=== PATIENT | male | born 1930 | race Caucasian/White ===

== ENCOUNTER → 2016-08-04 | Day surgery (SDC) | payer OTHER ==
--- NOTE | 2016-07-28 08:35 | MB ---
cc: Laverne DE LA CRUZ M.D., JOO DATE OF CONSULTATION 07/21/2016 PRIMARY CARE PHYSICIAN Nilson Hadley MD REASON FOR ADMISSION Outpatient bronchoscopy being scheduled. HISTORY Mr. Oropeza is an 85-year-old white male whom I have followed now for about two years with recurring infiltrates. He initially had a left lower lobe infiltrate which occurred in August or September of 2014. It was suspected to possibly be related to aspiration. He was treated and got some improvement. However in the spring he re-presented with a right lower lobe infiltrate and again it was suspected of being aspiration. Follow-up scans on the right cleared completely but the left never really did clear completely. He was a former smoker of about 40 pack-years although he quit smoking in 1984. I last saw him in September at which time we were to schedule routine followup in six months but he had to reschedule and did not have a follow-up scan of his chest until July 15 of this year, 2016, and now he has a more extensive infiltrate in that left lower lobe again. It is associated with bronchiectasis and some stable mediastinal adenopathy. He has had no recurrent infiltrate on the right. He has developed a persistent cough again but produces very little sputum. He has had no hemoptysis. He denies shortness of breath. Pulmonary functions back in September of 2014 revealed no significant obstruction. PAST MEDICAL HISTORY 1. He has had a prior bypass surgery in 1986. 2. He had some stents placed in 1989. There is been no evidence of recurrent ischemic disease recently. 3. He has had a previous cholecystectomy. 4. He is hypothyroid. 5. Hypertension. 6. Chronic reflux disease which may be the etiology of these recurring infiltrates. ALLERGIES Peanuts. MEDICATIONS 1. Prilosec. 2. Isosorbide. 3. A statin. 4. Allopurinol. 5. Thyroid replacement. 6. 81 mg aspirin. 7. Metoprolol. SOCIAL HISTORY , living with his of 64 years. Drinks an occasional alcoholic beverage. Smoking as noted; quit back in 1985. Retired from [employer]. REVIEW OF SYSTEMS Weight has been stable. Appetite is fine. He does have a recurring cough, however, and it is a little worse. No purulent sputum or hemoptysis. He denies shortness of breath. He has had no chest pain, no orthopnea, PND or increasing edema in his legs. Reflux has been controlled at least symptomatically on Prilosec. He does not experience reflux or nighttime awakening with reflux. No anginal chest pain or progressive edema. No swelling in his legs. No shortness of breath. PHYSICAL EXAMINATION VITAL SIGNS: 96, 114/62, pulse 70, RR 18, sat 96% on room air. HEENT: Sclerae anicteric. Pharynx is clear. NECK: Neck veins are flat. LYMPHATICS: No adenopathy in the neck or supraclavicular regions. CHEST: His chest is fairly clear, although he does have basilar rales at the left greater than the right. No congestion or rhonchi. HEART: Regular rhythm. No harsh murmur. No audible S3. No pitting edema or cyanosis. ASSESSMENT AND PLAN I have reviewed the follow-up CT scan with Mr. Oropeza I am just a little concerned because, although these infiltrates are chronic, the one at the left base a little worse. He is a little more symptomatic and with his prior smoking history I cannot rule out an underlying malignancy. I have suggested proceeding with a diagnostic bronchoscopy. After thoroughly reviewing the procedure in simple terms so that he understands what it involves including the potential for risk of from anesthesia or bleeding or pneumothorax from biopsy, he is agreeable to proceed. Further diagnostic and/or therapeutic intervention will depend on results of this initial diagnostic study. R. MD SAMIR Gamboa/MILLI /12:17 PM /8:35 AM
[~2016-08-04] VITALS: Ht 180.3 cm; Wt 83.6 kg
[~2016-08-04] MED LIST: ALLO300T2 PO; ASPI325T PO; AZIT500T2 PO; CIPR750T2 PO; DO NOT ADM ANY ANTICOAGULANT DRUGS XX PRN; EPINEPHrine HCL (1:1000) 1 MG/ML VIAL ONE; INSULIN HUMAN REGULAR 1,000 UNITS/10 ML VIAL SQ PRN; ISOS20TA PO; LACTATED RINGER'S 1000 ML IV SCH; LEVO25TA4 PO; LIDOCAINE HCL 2% 50 ML VIAL ONE; LIDOCAINE HCL 4% PF 5 ML AMP ONE; LIDOCAINE VISCOUS 2% SOLN 15 ML UDC ONE; METO25TA3 PO; METOPROLOL TARTRATE 25 MG TAB PO PRN; OMEP20TA PO; PRAV20TA PO; PRED-503 PO; PROPOFOL 200 MG/20 ML AMP IV ONE; RESP: ALBUTEROL 2.5 MG/3 ML NEB (PRN) NEB; RESP: ALBUTEROL 2.5 MG/3 ML NEB (SCH) INH; RESP: LIDOCAINE HCL 2% 2 ML NEB NEB SCH; ROPI.25 PO; SODIUM CHLORID 0.9% 500 ML IV SCH; ePHEDrine/NS 50 MG/5 ML SYR IV ONE
[2016-08-04 13:33] VITALS: BP 144/74; PULSE 86; RESP 18; TEMP 97.8; O2SAT 97
[2016-08-04 14:07] LABS: PROTHROMBIN TIME - PATIENT 10.8 SEC (9.8-11.6)
[2016-08-04 15:40] VITALS: BP 133/70; PULSE 83; RESP 18; TEMP 96.5; O2SAT 94
--- NOTE | 2016-08-09 13:02 | MP ---
cc: AILYN FELIZ R. STEVEN M.D. DATE OF SURGERY: 08/04/2016 PROCEDURE Bronchoscopy INDICATION Persistent left lower lobe infiltrate. PROCEDURE NOTE: Mr. Oropeza underwent diagnostic bronchoscopy with LMA anesthesia, after informed consent. Examination of the larynx is unremarkable. Examination of the trachea down to the level of the mainstem bronchi was normal, but the left mainstem bronchus had rather copious secretions, foamy, not particularly purulent. No blood. These areas were suctioned to clear. Examination of the right mainstem bronchus, right upper lobe, middle lobe and lower lobe orifices was entirely unremarkable. Examination of the left mainstem bronchus again revealed some scattered secretions. These were aspirated and submitted for culture. The left upper lobe lingula and lower lobes were entirely unremarkable without endobronchial pathology. The left lower lobe, the area of infiltrate on chest x-ray was washed extensively and submitted for cytology and culture including AFB and fungus. He tolerated the procedure well without apparent complications transferred to recovery in stable condition. RMD SAMIR Zavala/AYDEE /2:59 PM /12:52 PM
== END | disposition home or self-care (01) ==
LOC: HEND 12:44
PROVIDERS: ATTEND Internal Medicine
DX: R91.8 Other nonspecific abnormal finding of lung field (principal); J18.9 Pneumonia, unspecified organism; J47.9 Bronchiectasis, uncomplicated; I10 Essential (primary) hypertension; I25.10 Atherosclerotic heart disease of native coronary artery without angina pectoris; E03.9 Hypothyroidism, unspecified; K21.9 Gastro-esophageal reflux disease without esophagitis; Z87.891 Personal history of nicotine dependence; Z79.82 Long term (current) use of aspirin; Z90.49 Acquired absence of other specified parts of digestive tract
CPT/HCPCS: 00520; 31622; 85610; 86403; 87015; 87070; 87102; 87116; 87205; 87206; 88112; 88305; 94664; J0171; J7120

== ENCOUNTER → 2017-03-29 | Outpatient (CLI) | payer OTHER ==
[~2017-03-29] MED LIST changes: +ALLO100T PO; +APIX5TAB PO; -AZIT500T2 PO; +CARD120C4 PO; -CIPR750T2 PO; -DO NOT ADM ANY ANTICOAGULANT DRUGS XX PRN; -EPINEPHrine HCL (1:1000) 1 MG/ML VIAL ONE; +FLUT50SP EACH NARE; +INDO25CA PO; -INSULIN HUMAN REGULAR 1,000 UNITS/10 ML VIAL SQ PRN; -LACTATED RINGER'S 1000 ML IV SCH; +LEVA750T9 PO; -LIDOCAINE HCL 2% 50 ML VIAL ONE; -LIDOCAINE HCL 4% PF 5 ML AMP ONE; -LIDOCAINE VISCOUS 2% SOLN 15 ML UDC ONE; +MEDR4PAK PO; -METOPROLOL TARTRATE 25 MG TAB PO PRN; -PRED-503 PO; -PROPOFOL 200 MG/20 ML AMP IV ONE; -RESP: ALBUTEROL 2.5 MG/3 ML NEB (PRN) NEB; -RESP: ALBUTEROL 2.5 MG/3 ML NEB (SCH) INH; -RESP: LIDOCAINE HCL 2% 2 ML NEB NEB SCH; -SODIUM CHLORID 0.9% 500 ML IV SCH; -ePHEDrine/NS 50 MG/5 ML SYR IV ONE; +guaiFENesin ER PO
--- NOTE | 2017-04-05 10:41 | RSPPFT ---
DATE OF PROCEDURE: 03/29/17 COMMENTS: Spirometry demonstrates an FEV1 of 2.7 at 94% of predicted, FVC of 3.4 at 90%, FEF 25-75 is 108%. Post-bronchodilator study demonstrated no significant changes. Lung volumes demonstrated a mildly increased airways resistance. Diffusion capacity is moderately reduced. Flow volume loops appear unremarkable. IMPRESSION: 1. Essentially normal spirometry. 2. No significant change following use of bronchodilator. 3. Moderate loss in diffusion capacity.
== END ==
LOC: PHRSP 10:34
DX: J44.9 Chronic obstructive pulmonary disease, unspecified (principal); R05 Cough; R06.00 Dyspnea, unspecified
CPT/HCPCS: 94060; 94726; 94729

== ENCOUNTER 2017-04-11 03:08 | Inpatient (IN) | payer OTHER, MEDICARE ==
[~2017-04-11] VITALS: Ht 180.3 cm; Wt 86.0 kg
[2017-04-11] VITALS (29 sets, daily range): BP systolic 74–123; BP diastolic 41–63; PULSE 68–108; RESP 18–34; TEMP 98–103.1; O2SAT 93–100
[~2017-04-11 03:08] MED LIST changes: -ALLO100T PO; -APIX5TAB PO; -CARD120C4 PO; -FLUT50SP EACH NARE; -INDO25CA PO; -LEVA750T9 PO; -MEDR4PAK PO; -guaiFENesin ER PO
[2017-04-11] MEDS ORDERED: FLUT50SP EACH NARE (03:20)
[2017-04-11] MEDS ORDERED: INDO25CA PO (03:20)
[2017-04-11] MEDS ORDERED: ALLO100T PO (03:20)
--- NOTE | 2017-04-11 03:25 | PD ---
HPI Chief Complaint: Fever Time Seen by Provider: 03:18 Travel History International Travel<30 days: No Contact w/Intl Traveler<30days: No Traveled to known affect area: No History of Present Illness HPI 86-year-old male presents to the emergency department by EMS transport from home for evaluation of shaking chill with fever. Patient has had congestive cough. His had a congested cough approximate year. Cough is somewhat worse. No shortness of breath or pleuritic chest pain or chest pain. No abdominal pain. No diarrhea. No nausea or vomiting. No flank pain. No change in urine output. No recent antibiotic use. Patient had recent flu shot. Patient denies any headache neck pain back pain joint pain or swelling. Patient rates pain 0/10 in intensity. Patient has been treated in the past for left sided pneumonia. Patient has had bronchoscopy in the past. No report of cancer. PFSH Past Medical History Narrative Medical CAD angioplasty stent CABG hypertension dyslipidemia diminished hearing gouty arthritis osteoarthritis thyroid dysfunction alcohol use nursing notes reviewed Autoimmune Disease: No Anxiety: No Depression: No Cancer: No Cardiac Catheterization: Yes (1995--ANGIOPLASTY--ONE STENT) Cardiovascular Problems: Yes (HX BYPASS) High Cholesterol: Yes Chemotherapy: No Chest Pain: Yes COPD: Yes Coronary Artery Disease: Yes Diabetes: No Diminished Hearing: Yes (HEARING AIDS) GERD: Yes Gout: Yes Genitourinary: No Hepatitis: No Hiatal Hernia: Yes Immune Disorder: No Musculoskeletal: Yes (OA) Neurologic: No Psychiatric: No Reproductive: No Respiratory: Yes (CONGESTION, SLEEP APNEA) Radiation Therapy: No Thyroid Disease: Yes (hyper thyroid) Past Surgical History Abdominal Surgery: Yes (gall bladder) AICD: No Cardiac Surgery: Yes (5 artery by pass . stent) Cholecystectomy: Yes (2001) Coronary Artery Bypass Graft: Yes (1986 X 5 VESSLES) Ear Surgery: No Endocrine Surgery: No Eye Surgery: Yes (BOTH EYES CATARACT) Genitourinary Surgery: No Gynecologic Surgery: No Joint Replacement: No Oral Surgery: Yes (tonsillectomy) Pacemaker: No Thoracic Surgery: No Tonsillectomy: Yes (1941) Social History Alcohol Use: Yes ("ONCE A MONTH COUPLE OF DRINKS"BEER, MIX DRINKS OR WINE) Tobacco Use: No Substance Use: No Allergies-Medications (Allergen,Severity, Reaction): Coded Allergies: peanut oil (Verified Allergy, Severe, 04/11/17) Reported Meds & Prescriptions Reported Meds & Active Scripts Active Reported Indomethacin 25 Mg Cap 25 Mg PO TID Take with food, milk, or antacids to decrease stomach adverse effects. Fluticasone Nasal [place] 50 Mcg/Act Naspr 50 Mcg EACH NARE BID 50 mcg/spray Allopurinol 100 Mg Tab 100 Mg PO DAILY Isosorbide Mononitrate 20 Mg Tab 60 Mg PO DAILY Take 2 doses 7 hours apart. Levothyroxine (Levothyroxine Sodium) 25 Mcg Tab 25 Mcg PO DAILY Metoprolol Tartrate 25 Mg Tab 25 Mg PO BID Omeprazole 20 Mg Tab 20 Mg PO DAILY Pravachol (Pravastatin) 20 Mg Tab 20 Mg PO HS PRN Requip (Ropinirole HCl) 0.25 Mg Tab 0.25 Mg PO DAILY Review of Systems Except as stated in HPI: all other systems reviewed are Neg General / Constitutional: Positive: Fever, Chills Eyes: No: Visual changes HENT: Positive: Congestion Cardiovascular: No: Chest Pain or Discomfort Respiratory: Positive: Cough, No: Shortness of Breath Gastrointestinal: No: Nausea, Vomiting, Diarrhea, Abdominal Pain Genitourinary: No: Dysuria, Decreased Urinary Output Musculoskeletal: No: Myalgias, Arthralgias Skin: No Rash Neurologic: Positive: Weakness Psychiatric: No: Anxiety Endocrine: No: Heat Intolerance Physical Exam Narrative GENERAL: Well-developed well-nourished male in no acute distress no respiratory distress with fever 10 3F oral SKIN: Warm and dry. HEAD: Normocephalic. EYES: No scleral icterus. No injection or drainage. NECK: Supple, trachea midline. No JVD or lymphadenopathy. CARDIOVASCULAR: Regular rate and rhythm without murmurs, gallops, or rubs. RESPIRATORY: Breath sounds equal bilaterally except for crackles left base. No accessory muscle use. GASTROINTESTINAL: Abdomen soft, non-tender, nondistended. MUSCULOSKELETAL: No cyanosis, or edema. BACK: Nontender without obvious deformity. No CVA tenderness. Data Data Last Documented VS Vital Signs Date Time Temp Pulse Resp B/P (MAP) Pulse Ox O2 Delivery O2 Flow Rate FiO2 04/11/17 04:10 Nasal Cannula 2.00 04/11/17 04:10 100.9 108 30 123/53 (76) 95 Orders Orders Electrocardiogram (04/11/17 03:18) Complete Blood Count With Diff (04/11/17 03:18) Comprehensive Metabolic Panel (04/11/17 03:18) Lactic Acid Sepsis Protocol (04/11/17 03:18) Magnesium (Mg) (04/11/17 03:18) Lipase (04/11/17 03:18) Troponin I (04/11/17 03:18) Urinalysis - C+S If Indicated (04/11/17 03:18) Influenzae A/B Antigen (04/11/17 03:18) Blood Culture (04/11/17 03:18) Sputum Culture And Gram Stain (04/11/17 03:18) Chest, Single Ap (04/11/17 03:18) Blood Glucose (04/11/17 03:18) Ecg Monitoring (04/11/17 03:18) Iv Access Insert/Monitor (04/11/17 03:18) Oximetry (04/11/17 03:18) Oxygen Administration (04/11/17 03:18) Acetaminophen (Tylenol) (04/11/17 03:30) Sodium Chlor 0.9% 1000 Ml Inj (Ns 1000 M (04/11/17 03:30) Piperacil-Tazo 4.5 Gm Premix (Zosyn 4.5 (04/11/17 03:30) Azithromycin Inj (Zithromax Inj) (04/11/17 03:30) Admit Order (Ed Use Only) (04/11/17 ) ^ Saline Lock (04/11/17 05:09) Resp Oxygen Bin C Titrat 1-4 L (04/11/17 ) Notify Dr: Other (04/11/17 05:09) Sodium Chloride 0.9% Flush (Ns Flush) (04/11/17 09:00) Sodium Chloride 0.9% Flush (Ns Flush) (04/11/17 05:15) Azithromycin Inj (Zithromax Inj) (04/12/17 08:00) Ceftriaxone Inj (Rocephin Inj) (04/12/17 06:00) Albuterol-Ipratropium Neb (Duoneb Neb) (04/11/17 05:15) Admit To Inpatient (04/11/17 ) Vital Signs (Adult) Q4H (04/11/17 05:08) Activity Oob With Assistance (04/11/17 05:08) Tennis Ball Coverer Hand / Telemetry .CONTINUOUS (04/11/17 05:08) Intake + Output ESEQUIEL.QSHIFT (04/11/17 05:08) Diet Regular Basic (04/11/17 Breakfast) Sodium Chlor 0.9% 1000 Ml Inj (Ns 1000 M (04/11/17 05:08) Sodium Chloride 0.9% Flush (Ns Flush) (04/11/17 05:15) Sodium Chloride 0.9% Flush (Ns Flush) (04/11/17 09:00) Ondansetron Inj (Zofran Inj) (04/11/17 05:15) Comprehensive Metabolic Panel (04/12/17 06:00) Complete Blood Count With Diff (04/12/17 06:00) Scd Bilateral/Knee High ESEQUIEL.BID (04/11/17 05:08) [place] Antonio Bilateral/Knee High ESEQUIEL.QSHIFT (04/11/17 05:11) Acetaminophen (Tylenol) (04/11/17 05:15) Acetamin-Hydrocod 325-5 Mg ([place] 5-325 (04/11/17 05:15) Morphine Inj (Morphine Inj) (04/11/17 05:15) Docusate Sodium-Senna (Marianela-Colace) (04/11/17 09:00) Magnesium Hydroxide Liq (Milk Of Magnesi (04/11/17 05:15) Sennosides (Senokot) (04/11/17 05:15) Bisacodyl Supp (Dulcolax Supp) (04/11/17 05:15) Lactulose Liq (Lactulose Liq) (04/11/17 05:15) Inpatient Certification (04/11/17 ) Levothyroxine (Synthroid) (04/11/17 07:00) Metoprolol Tartrate (Lopressor) (04/11/17 09:00) Ropinirole Hcl (Requip) (04/11/17 09:00) Pantoprazole (Protonix) (04/11/17 09:00) Labs Laboratory Tests Test 04/11/17 03:25 White Blood Count 9.9 TH/MM3 Red Blood Count 5.21 MIL/MM3 Hemoglobin 14.3 GM/DL Hematocrit 42.6 % Mean Corpuscular Volume 81.8 FL Mean Corpuscular Hemoglobin 27.4 PG Mean Corpuscular Hemoglobin Concent 33.6 % Red Cell Distribution Width 13.6 % Platelet Count 168 TH/MM3 Mean Platelet Volume 8.6 FL Neutrophils (%) (Auto) 81.3 % Lymphocytes (%) (Auto) 10.3 % Monocytes (%) (Auto) 6.8 % Eosinophils (%) (Auto) 1.5 % Basophils (%) (Auto) 0.1 % Neutrophils # (Auto) 8.1 TH/MM3 Lymphocytes # (Auto) 1.0 TH/MM3 Monocytes # (Auto) 0.7 TH/MM3 Eosinophils # (Auto) 0.1 TH/MM3 Basophils # (Auto) 0.0 TH/MM3 CBC Comment DIFF FINAL Differential Comment Urine Color YELLOW Urine Turbidity CLEAR Urine pH 6.0 Urine Specific [place] 1.015 Urine Protein NEG mg/dL Urine Glucose (UA) NEG mg/dL Urine Ketones NEG mg/dL Urine Occult Blood TRACE Urine Nitrite NEG Urine Bilirubin NEG Urine Leukocyte Esterase NEG Urine RBC 0-3 /hpf Urine WBC 0-2 /hpf Urine Squamous Epithelial Cells 0-5 /hpf Urine Bacteria NONE /hpf Microscopic Urinalysis Comment CULT NOT INDICATED Blood Urea Nitrogen 17 MG/DL Creatinine 1.10 MG/DL Random Glucose 127 MG/DL Total Protein 7.3 GM/DL Albumin 3.1 GM/DL Calcium Level 8.7 MG/DL Magnesium Level 1.6 MG/DL Alkaline Phosphatase 82 U/L Aspartate Amino Transf (AST/SGOT) 24 U/L Alanine Aminotransferase (ALT/SGPT) 23 U/L Total Bilirubin 0.4 MG/DL Sodium Level 139 MEQ/L Potassium Level 3.7 MEQ/L Chloride Level 106 MEQ/L Carbon Dioxide Level 26.4 MEQ/L Anion Gap 7 MEQ/L Estimat Glomerular Filtration Rate 63 ML/MIN Lactic Acid Level 2.3 mmol/L Troponin I LESS THAN 0.02 NG/ML Lipase 188 U/L [facility] Medical Decision Making Medical Screen Exam Complete: Yes Emergency Medical Condition: Yes 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 Reviewed: Yes Interpretation(s) EKG sinus tachycardia rate 110 intraventricular conduction delay borderline first-degree heart block no acute ST elevation IVCD noted since Chest x-ray left lower lobe infiltrate CBC & BMP Diagram 04/11/17 03:25 Total Protein 7.3, Albumin 3.1 L, Calcium Level 8.7, Magnesium Level 1.6, Alkaline Phosphatase 82, Aspartate Amino Transf (AST/SGOT) 24, Alanine Aminotransferase (ALT/SGPT) 23, Total Bilirubin 0.4 Vital Signs Date Time Temp Pulse Resp B/P (MAP) Pulse Ox O2 Delivery O2 Flow Rate FiO2 04/11/17 04:10 Nasal Cannula 2.00 04/11/17 04:10 100.9 108 30 123/53 (76) 95 Nasal Cannula 2.00 04/11/17 04:10 100.9 108 30 123/53 (76) 95 Nasal Cannula 2.00 04/11/17 03:30 96 Room Air 04/11/17 03:30 96 Room Air 04/11/17 03:21 103.1 105 28 120/63 (82) 96 Lactic acid elevated 2.3 CK 82 not elevated; troponin I less than 0.02, not elevated Differential Diagnosis Febrile illness, sepsis, pneumonia, UTI, influenza, dehydration Narrative Course patient is on story analyst IV access obtained blood cultures obtained lactic acid obtained specimens collected and sent for resulting EKG ordered patient administered acetaminophen 650 mg as well as presumptive IV antibiotic for community-acquired pneumonia Zosyn 4.5 g and azithromycin 500 mg ivpb Patient resting comfortably family at bedside informed of lab results and plan for admission Critical Care Narrative Aggregate critical care time was 35 minutes. Time to perform other separately billable procedures was not included in the critical care time. My time did not include minutes spent treating any other patients simultaneously or on activities that did not directly contribute to the patient's treatment. The services I provided to this patient were to treat and/or prevent clinically significant deterioration that could result in: Septic shock, respiratory failure, I provided critical care services requiring my management, as noted below: Chart data review, documentation time, medication orders and management, vital sign assessments/reviewing monitor data, ordering and reviewing lab tests, ordering and interpreting/reviewing x-rays and diagnostic studies, care of the patient and discussion of the patient with the admitting physicians. Sepsis Criteria SIRS Criteria (2 or more): Temp > 100.9 or < 96.8, Heart rate over 90, RR > 20 or PaCO2 < 32 Sepsis Criteria (SIRS+source): Infect source susp/known (LLL infiltrate) Severe Sepsis (+one): Lactate >2 Criteria Outcome: Meets sepsis criteria Physician Communication Physician Communication [facility] service MD Diagnosis Primary Impression: PNA (pneumonia) Additional Impression: Sepsis Admitting Information Admitting Physician Requests: Admit Eliza Steven MD Apr 11, 2017 03:25
[2017-04-11] MEDS ORDERED: SODIUM CHLOR 0.9% 1000 ML INJ 1,000 ML IV ONE ×3 (03:30→11:00)
[2017-04-11] MEDS ORDERED: PIPERACIL-TAZO 4.5 GM PREMIX 100 ML IV ONE (03:30)
[2017-04-11] MEDS ORDERED: ACETAMINOPHEN 325 MG TAB PO ONE (03:30)
[2017-04-11] MEDS ORDERED: AZITHROMYCIN INJ 500 MG in SODIUM CHLOR 0.9% 250 ML INJ 250 ML IV ONE (03:30)
[2017-04-11 03:42] LABS: GLUCOSE,URINE NEG (NEG); KETONE, URINE NEG (NEG); NITRITE,URINE NEG (NEG)
[2017-04-11 03:45] LABS: AUTOMATED NEUTROPHIL # 8.1 TH/MM3 (1.8-7.7); BASOPHIL % 0.1 % (0.0-2.0); EOSINOPHIL # 0.1 TH/MM3 (0-0.4); EOSINOPHIL % 1.5 % (0.0-4.0); HEMATOCRIT 42.6 % (39.0-51.0); HEMO FLAGS DIFF FINAL; LYMPH % 10.3 % (9.0-44.0); MEAN CELL VOLUME 81.8 FL (80.0-100.0); MEAN CORPUSCULAR HEMOGLOBIN 27.4 PG (27.0-34.0); MEAN CORPUSCULAR HGB CONC 33.6 % (32.0-36.0); MONO % 6.8 % (0.0-8.0); NEUT % 81.3 % (16.0-70.0); PLATELET COUNT 168 TH/MM3 (150-450); RED BLOOD COUNT 5.21 MIL/MM3 (4.50-5.90); RED CELL DISTRIBUTION WIDTH 13.6 % (11.6-17.2); WHITE BLOOD COUNT 9.9 TH/MM3 (4.0-11.0)
[2017-04-11 03:52] LABS: CHLORIDE 106 MEQ/L (98-107); POTASSIUM 3.7 MEQ/L (3.5-5.1); SODIUM (NA) 139 MEQ/L (136-145)
[2017-04-11 03:56] LABS: ANION GAP 7 MEQ/L (5-15); BICARBONATE 26.4 MEQ/L (21.0-32.0); BLOOD UREA NITROGEN 17 MG/DL (7-18); MAGNESIUM 1.6 MG/DL (1.5-2.5)
[2017-04-11 03:59] LABS: ALT (GPT) 23 U/L (12-78); AST (GOT) 24 U/L (15-37); GLOMERULAR FILTRATION RATE 63 ML/MIN (>89)
[2017-04-11 04:00] LABS: TOTAL BILIRUBIN ADULT 0.4 MG/DL (0.2-1.0)
[2017-04-11 04:02] LABS: ALKALINE PHOSPHATASE 82 U/L (45-117)
--- NOTE | 2017-04-11 04:03 | RADRPT ---
EXAM DATE/TIME: 04/11/2017 03:32 [place] COMPARISON: CT PULMONARY ANGIOGRAM, October 11, 2014, 14:09. INDICATIONS : Fever. MEDICAL HISTORY : Hypertension. SURGICAL HISTORY : Cholecystectomy. CABG. ENCOUNTER: Initial ACUITY: 1 day PAIN SCORE: 0/10 LOCATION: Bilateral chest FINDINGS: A single view of the chest demonstrates mild basilar consolidation at the left lung base. Minimal rig ht basal atelectasis. No significant effusion. No pneumothorax. Previous median sternotomy. CONCLUSION: 1. Basilar lung consolidation predominantly left lower lobe. Differential diagnosis includes bronchop neumonia given history of fever. Rosas Peña MD on April 11, 2017 at 4:00 Board Certified Radiologist. This report was verified electronically.
[2017-04-11 04:09] LABS: BLOOD, URINE TRACE (NEG)
[2017-04-11 04:10] LABS: RBC, URINE 0-3 /hpf (0-3); URINE COLOR YELLOW (YELLW/STRAW); WBC, URINE 0-2 /hpf (0-5)
[2017-04-11 04:11] LABS: COMMENT (UR) CULT NOT INDICATED; CULTURE IF INDICATED CULT NOT INDICATED; SQUAMOUS EPITHELIAL CELL URINE 0-5 /hpf (0-5)
[2017-04-11] MEDS ORDERED: BISACODYL 10 MG SUPP RECTAL PRN (05:15)
[2017-04-11] MEDS ORDERED: ACETAMINOPHEN 325 MG TAB PO PRN (05:15)
[2017-04-11] MEDS ORDERED: MORPHINE SULFATE 4 MG/ML INJ IV PUSH PRN (05:15)
[2017-04-11] MEDS ORDERED: MAGNESIUM HYDROXIDE SUSP 30 ML CUP PO PRN (05:15)
[2017-04-11] MEDS ORDERED: RESP: ALBUTEROL 2.5 MG/IPRATROPIUM 0.5 MG NEB (PRN) NEB (05:15)
[2017-04-11] MEDS ORDERED: ACETAMINOPHEN/HYDROcodone 325 MG/5 MG TAB PO PRN (05:15)
[2017-04-11] MEDS ORDERED: SODIUM CHLORIDE 0.9% FLUSH 10 ML FLUSH IVF PRN (05:15)
[2017-04-11] MEDS ORDERED: ONDANSETRON HCL 4 MG/2 ML VIAL IVP PRN (05:15)
[2017-04-11] MEDS ORDERED: LACTULOSE SYRUP 20 GM/30 ML CUP PO PRN (05:15)
[2017-04-11] MEDS ORDERED: SENNOSIDES 8.6 MG TAB PO PRN (05:15)
[2017-04-11] MEDS ORDERED: SODIUM CHLOR 0.9% 1000 ML INJ 1,000 ML IV SCH (05:30)
[2017-04-11] MEDS ORDERED: SODIUM CHLORID 0.9% 500 ML INJ 500 ML IV ONE ×3 (05:30→17:30)
[2017-04-11 05:38] LABS: LACTIC ACID GHOST NOT REPORTABLE
[2017-04-11] MEDS: LEVOTHYROXINE SODIUM 25 MCG TAB PO SCH (06:25)
--- NOTE | 2017-04-11 07:08 | EKG ---
Date Performed: 04/11/2017 Time Performed: 03:55:28 PTAGE: 86 years EKG: SINUS TACHYCARDIA NONSPECIFIC INTRAVENTRICULAR CONDUCTION DELAY NONSPECIFIC T WAVE ABNORMAL ITY ABNORMAL ECG PREVIOUS TRACING : 10/10/2014 17.08 No significant change from previous tracing noted. DOCTOR: Elpidio Parish Interpretating Date/Time 04/11/2017 07:07:17
[2017-04-11] MEDS: SODIUM CHLOR 0.9% 1000 ML INJ 1,000 ML IV SCH ×2 (07:17→15:08)
[2017-04-11] MEDS: SODIUM CHLORIDE 0.9% FLUSH 10 ML FLUSH IV FLUSH SCH ×2 (09:00→20:34)
[2017-04-11] MEDS: METOPROLOL TARTRATE 25 MG TAB PO SCH ×2 (09:00→20:34)
[2017-04-11] MEDS: DOCUSATE SODIUM 50 MG/SENNA 8.6 MG TAB PO SCH ×2 (09:00→20:31)
[2017-04-11] MEDS: PANTOPRAZOLE SOD 20 MG DELAYED RELEASE TAB PO SCH (09:00)
[2017-04-11] MEDS ORDERED: SODIUM CHLORIDE 0.9% FLUSH 10 ML FLUSH IV FLUSH SCH (09:00)
--- NOTE | 2017-04-11 11:17 | HHI.HP ---
[facility] Jem Kaufman MD Admission Diagnosis LLL pneumonia; sepsis Diagnoses: Chief Complaint: fever, chills Travel History International Travel<30 Days: No Contact w/Intl Traveler <30 Da: No Traveled to Known Affected Are: No History of Present Illness Very pleasant 86-year-old male with PMH of PNA, CAD, HTN, HLD, hypothyroidism, GERD, gout, arthritis presents to the emergency department by EMS transport from home for evaluation of shaking chill with fever. Says he woke up in the middle of the night with shaking chills, fever, pain all over his body. Patient has had congestive cough. He had a congested cough approximate for 1 year. Cough is somewhat worse. Says he is following with pulm Dr Magaña. Says he has been taking mucinex, nebs and did not help. Says he had PFT as OP and did not show he has COPD. Says he doens't know why he has the cough. He has a h/ o asbestos exposure at young age ~ 19 ya. 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 He also has a h/o GERD and is taking omeprazole for the past 20 years. He however denies shortness of breath, pleuritic chest pain or chest pain. No abdominal pain. No diarrhea. No nausea or vomiting. No flank pain. No change in urine output. No recent antibiotic use. Patient had recent flu shot. Patient denies any headache neck pain back pain joint pain or swelling. Patient rates pain 0/10 in intensity. Patient has been treated in the past for left sided pneumonia. Patient has had bronchoscopy, PFT and CT chest in the past. No report of cancer. His BP is noted low, received 2.5 L in the ER, MAP 65%. Patient says he feels very tired. No more chills or body aches. Review of Systems Except as stated in HPI: all other systems reviewed are Neg Past Family Social History Past Medical History PNA, CAD, HTN, HLD, hypothyroidism, GERD, restless leg syndrome, gout, arthritis Past Surgical History CABG 1986, angioplasty 1 stent 1995 Cholecystectomy 2001 Bilateral eye cataract surgery Tonsillectomy 1942 Reported Medications Reported Meds & Active Scripts Active Reported Indomethacin 25 Mg Cap 25 Mg PO TID Take with food, milk, or antacids to decrease stomach adverse effects. Fluticasone Nasal [place] 50 Mcg/Act Naspr 50 Mcg EACH NARE BID 50 mcg/spray Allopurinol 100 Mg Tab 100 Mg PO DAILY Isosorbide Mononitrate 20 Mg Tab 60 Mg PO DAILY Take 2 doses 7 hours apart. Levothyroxine (Levothyroxine Sodium) 25 Mcg Tab 25 Mcg PO DAILY Metoprolol Tartrate 25 Mg Tab 25 Mg PO BID Omeprazole 20 Mg Tab 20 Mg PO DAILY Pravachol (Pravastatin) 20 Mg Tab 20 Mg PO HS PRN Requip (Ropinirole HCl) 0.25 Mg Tab 0.25 Mg PO DAILY Allergies: Coded Allergies: peanut oil (Verified Allergy, Severe, 04/11/17) Family History Half sister [place], at age of 65 Mother healthy of old age at 81 ya Social History Tobacco use 1 PPD for 30 years, quit 35 years ago Occasional EtOH use, once a month a couple of drinks Physical Exam Vital Signs Vital Signs Date Time Temp Pulse Resp B/P (MAP) Pulse Ox O2 Delivery O2 Flow Rate FiO2 04/11/17 11:14 100 Nasal Cannula 2.00 04/11/17 08:30 98.2 04/11/17 08:15 04/11/17 07:19 98.4 86 18 90/47 (61) 97 Room Air 04/11/17 06:23 82 105/62 (76) 04/11/17 06:04 99.5 83 24 101/53 (69) 95 Nasal Cannula 2.00 04/11/17 05:32 89 26 90/52 (65) 96 Nasal Cannula 2.00 04/11/17 04:10 Nasal Cannula 2.00 04/11/17 04:10 100.9 108 30 123/53 (76) 95 Nasal Cannula 2.00 04/11/17 04:10 100.9 108 30 123/53 (76) 95 Nasal Cannula 2.00 04/11/17 03:30 96 Room Air 04/11/17 03:30 96 Room Air 04/11/17 03:21 103.1 105 28 120/63 (82) 96 Physical Exam GENERAL: This is a very pleasant 86 yo male, well-nourished, well-developed patient, in no apparent distress. SKIN: No rashes, ecchymoses or lesions. Cool and dry. HEAD: Atraumatic. Normocephalic. No temporal or scalp tenderness. EYES: Pupils equal round and reactive. Extraocular motions intact. No scleral icterus. No injection or drainage. ENT: Nose without bleeding, purulent drainage or septal hematoma. Throat without erythema, tonsillar hypertrophy or exudate. Uvula midline. Airway patent. NECK: Trachea midline. No JVD or lymphadenopathy. Supple, nontender, no meningeal signs. CARDIOVASCULAR: Regular rate and rhythm without murmurs, gallops, or rubs. RESPIRATORY: Diminished breath sounds, bronchial breath sounds on left lower lung field. Wheezing, scattered. No rales, or rhonchi. GASTROINTESTINAL: Abdomen soft, non-tender, nondistended. No hepato-splenomegaly , or palpable masses. No guarding. MUSCULOSKELETAL: Extremities without clubbing, cyanosis, or edema. No joint tenderness, effusion, or edema noted. No calf tenderness. Negative Homans sign bilaterally. NEUROLOGICAL: Awake and alert. Cranial nerves II through XII intact. Motor and sensory grossly within normal limits. Five out of 5 muscle strength in all muscle groups. Normal speech. Laboratory Laboratory Tests Test 04/11/17 03:25 04/11/17 05:45 White Blood Count 9.9 Red Blood Count 5.21 Hemoglobin 14.3 Hematocrit 42.6 Mean Corpuscular Volume 81.8 Mean Corpuscular Hemoglobin 27.4 Mean Corpuscular Hemoglobin Concent 33.6 Red Cell Distribution Width 13.6 Platelet Count 168 Mean Platelet Volume 8.6 Neutrophils (%) (Auto) 81.3 Lymphocytes (%) (Auto) 10.3 Monocytes (%) (Auto) 6.8 Eosinophils (%) (Auto) 1.5 Basophils (%) (Auto) 0.1 Neutrophils # (Auto) 8.1 Lymphocytes # (Auto) 1.0 Monocytes # (Auto) 0.7 Eosinophils # (Auto) 0.1 Basophils # (Auto) 0.0 CBC Comment DIFF FINAL Differential Comment Urine Color YELLOW Urine Turbidity CLEAR Urine pH 6.0 Urine Specific [place] 1.015 Urine Protein NEG Urine Glucose (UA) NEG Urine Ketones NEG Urine Occult Blood TRACE Urine Nitrite NEG Urine Bilirubin NEG Urine Leukocyte Esterase NEG Urine RBC 0-3 Urine WBC 0-2 Urine Squamous Epithelial Cells 0-5 Urine Bacteria NONE Microscopic Urinalysis Comment CULT NOT INDICATED Blood Urea Nitrogen 17 Creatinine 1.10 Random Glucose 127 Total Protein 7.3 Albumin 3.1 Calcium Level 8.7 Magnesium Level 1.6 Alkaline Phosphatase 82 Aspartate Amino Transf (AST/SGOT) 24 Alanine Aminotransferase (ALT/SGPT) 23 Total Bilirubin 0.4 Sodium Level 139 Potassium Level 3.7 Chloride Level 106 Carbon Dioxide Level 26.4 Anion Gap 7 Estimat Glomerular Filtration Rate 63 Lactic Acid Level 2.3 1.8 Troponin I LESS THAN 0.02 Lipase 188 Date/Time Source Procedure Growth Status 04/11/17 03:30 Blood Peripheral Aerobic Blood Culture Pending Received 04/11/17 03:30 Blood Peripheral Anaerobic Blood Culture Pending Received 04/11/17 03:25 Nasal Washing Influenza Types A,B Antigen ([facility]TON) - Final NEGATIVE FOR FLU A AND B ANTIGEN.... Complete Result Diagram: 04/11/1732404/11/17 0325 Caprini VTE Risk Assessment Caprini VTE Risk Assessment: Mod/High Risk (score >= 2) Caprini Risk Assessment Model Point Value = 1 Point Value = 2 Point Value = 3 Point Value = 5 Age 41-60 Minor surgery BMI > 25 kg/m2 Swollen legs Varicose veins or History of unexplained or recurrent spontaneous Oral contraceptives or hormone replacement Sepsis (< 1 month) Serious lung disease, including pneumonia (< 1 month) Abnormal pulmonary function Acute myocardial infarction Congestive heart failure (< 1 month) History of inflammatory bowel disease Medical patient at bed rest Age 61-74 Arthroscopic surgery Major open surgery (> 45 min) Laparoscopic surgery (> 45 min) Malignancy Confined to bed (> 72 hours) Immobilizing plaster cast Central venous access Age >= 75 History of VTE Family history of VTE Factor V Leiden Prothrombin [id number] Lupus anticoagulant Anticardiolipin antibodies Elevated serum homocysteine Heparin-induced thrombocytopenia Other congenital or acquired thrombophilia Stroke (< 1 month) Elective arthroplasty Hip, pelvis, or leg fracture Acute spinal cord injury (< 1 month) Prophylaxis Regimen Total Risk Factor Score Risk Level Prophylaxis Regimen 0-1 Low Early ambulation 2 Moderate Order ONE of the following: *Sequential Compression Device (SCD) *Heparin 5000 units SQ BID 3-4 Higher Order ONE of the following medications: *Heparin 5000 units SQ TID *Enoxaparin/Lovenox 40 mg SQ daily (WT < 150 kg, CrCl > 30 mL/min) *Enoxaparin/Lovenox 30 mg SQ daily (WT < 150 kg, CrCl > 10-29 mL/min) *Enoxaparin/Lovenox 30 mg SQ BID (WT < 150 kg, CrCl > 30 mL/min) AND/OR *Sequential Compression Device (SCD) 5 or more Highest Order ONE of the following medications: *Heparin 5000 units SQ TID (Preferred with Epidurals) *Enoxaparin/Lovenox 40 mg SQ daily (WT < 150 kg, CrCl > 30 mL/min) *Enoxaparin/Lovenox 30 mg SQ daily (WT < 150 kg, CrCl > 10-29 mL/min) *Enoxaparin/Lovenox 30 mg SQ BID (WT < 150 kg, CrCl > 30 mL/min) AND *Sequential Compression Device (SCD) Assessment and Plan Assessment and Plan Severe sepsis (fevers, tachycardia, PNA, hypotension, end organ dysfunction - kidney, lactic acidosis) on admission Pneumonia Acute respiratory failure sattign well on 2L NC, patient doesn't use O2 at home MATILDE Hypotension Admit to ICU Low UOP. Monitor closely UOP, contiue fluids, monitor kidney function closely. Place ko Blood cultures obtained in the ED. Sputum cx Duonebs scheduled and as need. Add mucomyst as patient with congestion. Continue mucinex. Steroids taper as tolerated. On IVF EKG sinus tachycardia rate 110 intraventricular conduction delay borderline first-degree heart block no acute ST elevation IVCD noted since Chest x-ray left lower lobe infiltrate Lactic acid elevated 2.3. Repeat LA at 1.8 CK 82 and troponin I less than 0.02, not elevated Received Zosyn 4.5 g and azithromycin 500 mg IV. Continue rocephin and azithromycin IV Received 2.5 L NS. Will administer another bolus 1000 mls NS as his BP still low (MAP ~ 61). Keep MAP > 65%. If BP continues to drop we will consider starting levophed. Discussed with the nurse. Chronic medical problems appears at baseline, restart home meds as appropriate , hold BP meds at this time as BP is low. Code Status full code Discussed Condition With patient, ICU nurse Physician Certification 2 Midnight Certification Type: Admission for Inpatient Services Order for Inpatient Services The services are ordered in accordance with Medicare regulations or non- Medicare payer requirements, as applicable. In the case of services not specified as inpatient-only, they are appropriately provided as inpatient services in accordance with the 2-midnight benchmark. Estimated LOS (days): 3 days is the estimated time the patient will need to remain in the hospital, assuming treatment plan goals are met and no additional complications. Post-Hospital Plan: Home Serena Andrews MD Apr 11, 2017 11:17
[2017-04-11] MEDS ORDERED: methylPREDNISolone SOD SUCC 40 MG/1 ML VIAL IV PUSH SCH (13:00)
[2017-04-11] MEDS: ENOXAPARIN SODIUM 30 MG/0.3 ML SYRINGE SQ SCH (13:00)
[2017-04-11] MEDS: guaiFENesin E.R. 600 MG TAB PO SCH ×2 (13:00→20:32)
[2017-04-11] MEDS: RESP: ALBUTEROL 2.5 MG/IPRATROPIUM 0.5 MG NEB (SCH) NEB ×2 (16:05→19:37)
[2017-04-11] MEDS: RESP: ACETYLCYSTEINE 20% 30 ML NEB NEB SCH ×3 (16:06→23:25)
--- NOTE | 2017-04-11 17:03 | MB ---
cc: MONTY PETERSEN DATE OF CONSULTATION: 04/11/2017. REASON FOR CONSULTATION: COPD and respiratory distress with pneumonia. HISTORY OF PRESENT ILLNESS: This is an 86-year-old white male with a prior history of coronary artery disease, hypertension and COPD who was admitted via the emergency room with shaking chills, fever and generalized body aches. He was coughing and bringing up thick whitish mucus and upon arrival in the emergency room, he was hypotensive and had to be given fluid boluses and subsequently started on IV antibiotics including Rocephin and Zithromax intravenously. The patient is now in the intensive care unit and feels better; however, blood pressure is still low at around 88/50. The patient's urine output is picking up. He denies chest pains. He still has a cough and has wheezing but no hemoptysis. PAST MEDICAL HISTORY: This patient's past history is significant for: 1. COPD. 2. History of asbestos exposure. 3. Prior history of coronary artery disease. 4. Hypertension. 5. Hyperlipidemia. 6. Hypothyroidism. 7. Gastroesophageal reflux. 8. Restless legs. 9. Gout. PAST SURGICAL HISTORY: 1. CABG x3. 2. Angioplasty with stenting. 3. Previous cholecystectomy. 4. Tonsillectomy. 5. Bilateral cataract surgery with implants. 6. He has had bronchoscopy done in the past. HABITS: The patient smoked one pack per day for over thirty-five years. He quit ten years ago. Alcohol use is occasional. FAMILY HISTORY: The mother of old age. One sister with heart disease. MEDICATION LIST: 1. Metoprolol 25 milligrams twice a day. 2. Omeprazole 20 milligrams a day. 3. Pravachol 20 milligrams at bedtime. 4. Requip 0.25 milligrams daily. 5. Allopurinol 100 milligrams a day. 6. Isordil 60 milligrams a day. 7. Ventolin HFA 2 puffs p.r.n. ALLERGIES: PEANUT OIL. REVIEW OF SYSTEMS: The patient has lost weight. He has dizziness. He has shaking chills and fever. He has cramping in his legs. He denies headaches or blackouts. He has no urinary symptoms. He has no skin lesions. No depression. No anxiety. The other review of systems is negative. PHYSICAL EXAMINATION: GENERAL: This elderly man is pale, alert and mildly dyspneic. VITAL SIGNS: Blood pressure is 130/70, pulse is 88, respirations 22, temperature 98.2. HEAD, EYES, EARS, NOSE, THROAT: Head normocephalic. The pupils are reactive and equal. Tongue is moist. Nasal mucosa edematous. Throat is mildly injected. Ears have no inflammation. NECK: The neck is supple. No venous distention. No thyromegaly or lymphadenopathy. CHEST: Decreased excursions with occasional crackles at the lung bases more so on the left side. Wheezes are scattered. HEART: Heart sounds are irregular. S1-S2. No murmur. No S3 or gallop. ABDOMEN: Abdomen soft and protuberant. No masses. No organomegaly or tenderness. The bowel sounds are active. EXTREMITIES: Decreased peripheral pulses. No edema. No calf tenderness. NEUROLOGIC: Reflexes are 1+. No gross motor deficits. SKIN: No lesions are noted. IMPRESSION: 1. Basilar pneumonia with sepsis. 2. Hypotension. 3. Chronic obstructive pulmonary disease. 4. Asbestos exposure. 5. History of hypertension. 6. Hyperlipidemia. 7. Coronary artery disease. PLAN: 1. The patient will be continued on antibiotic coverage including Rocephin 1 gram IV daily and Zithromax 500 milligrams IV daily. 2. Solu-Medrol increased to 40 milligrams every six hours. 3. A fluid bolus will be given to improve his blood pressure. 4. Cultures are pending on the blood and the sputum. 5. Will also add Mucomyst solution four times a day with the nebulizer solution DuoNeb and Symbicort 160/4.5 two puffs twice a day is added. 6. Follow up chest x-ray to be done in the a.m. 7. CBC as well as basic metabolic profile. 8. Oxygen will be placed at three liters nasal cannula. Thank you Dr. Andrews for this consultation. MD CLINTON Ayala/DELVIN /1:54 PM /4:18 PM
[2017-04-11] MEDS: methylPREDNISolone SOD SUCC 40 MG/1 ML VIAL IV PUSH SCH (20:31)
[2017-04-11] MEDS: BUDESONIDE-FORMOTEROL 160/4.5 MCG INHALER INH SCH (20:34)
[2017-04-11] MEDS: RESP: ALBUTEROL 2.5 MG/IPRATROPIUM 0.5 MG NEB (PRN) NEB (23:25)
[2017-04-12] VITALS (18 sets, daily range): BP systolic 106–134; BP diastolic 61–74; PULSE 92–112; RESP 22–38; TEMP 97.8–98.7; O2SAT 91–97
[2017-04-12] MEDS: methylPREDNISolone SOD SUCC 40 MG/1 ML VIAL IV PUSH SCH ×5 (01:09→23:17)
[2017-04-12] MEDS: RESP: ACETYLCYSTEINE 20% 30 ML NEB NEB SCH ×6 (04:00→23:42)
[2017-04-12] MEDS: RESP: ALBUTEROL 2.5 MG/IPRATROPIUM 0.5 MG NEB (PRN) NEB ×2 (04:24→23:42)
[2017-04-12] MEDS: cefTRIAXone INJ 1,000 MG in SODIUM CHLORIDE 0.9% INJ 100 ML IV SCH (05:22)
[2017-04-12 05:24] LABS: AUTOMATED NEUTROPHIL # 11.3 TH/MM3 (1.8-7.7); BASOPHIL # 0.1 TH/MM3 (0-0.2); BASOPHIL % 0.6 % (0.0-2.0); EOSINOPHIL % 0.3 % (0.0-4.0); HEMATOCRIT 37.9 % (39.0-51.0); LYMPH % 4.3 % (9.0-44.0); LYMPHOCYTE # 0.5 TH/MM3 (1.0-4.8); MEAN CELL VOLUME 82.6 FL (80.0-100.0); MEAN CORPUSCULAR HEMOGLOBIN 27.9 PG (27.0-34.0); MEAN CORPUSCULAR HGB CONC 33.7 % (32.0-36.0); MONO % 1.2 % (0.0-8.0); NEUT % 93.6 % (16.0-70.0); PLATELET COUNT 139 TH/MM3 (150-450); RED BLOOD COUNT 4.59 MIL/MM3 (4.50-5.90); RED CELL DISTRIBUTION WIDTH 13.9 % (11.6-17.2)
[2017-04-12] MEDS: LEVOTHYROXINE SODIUM 25 MCG TAB PO SCH (05:24)
--- NOTE | 2017-04-12 05:40 | RADRPT ---
EXAM DATE/TIME: 04/12/2017 05:21 [place] COMPARISON: CHEST SINGLE AP, April 11, 2017, 3:32. INDICATIONS : Shortness of breath. MEDICAL HISTORY : Hypertension. SURGICAL HISTORY : CABG. ENCOUNTER: Subsequent ACUITY: 3 days PAIN SCORE: 0/10 LOCATION: Bilateral chest FINDINGS: Left greater right basilar consolidation again noted, not significantly changed. A small left pleural effusion is possible. I don't see a pneumothorax. Heart size stable, upper limits of normal. Patient has had previous median sternotomy. Thoracic aorta is tortuous and atherosclerotic. CONCLUSION: No significant change mild left greater than the right basilar consolidation. Tulio Llanes MD on April 12, 2017 at 5:38 Board Certified Radiologist. This report was verified electronically.
[2017-04-12 05:44] LABS: HEMO FLAGS DIFF FINAL
[2017-04-12 05:56] LABS: CHLORIDE 110 MEQ/L (98-107); POTASSIUM 3.8 MEQ/L (3.5-5.1); SODIUM (NA) 142 MEQ/L (136-145)
[2017-04-12 06:01] LABS: ANION GAP 14 MEQ/L (5-15); BICARBONATE 18.3 MEQ/L (21.0-32.0)
[2017-04-12 06:02] LABS: BLOOD UREA NITROGEN 16 MG/DL (7-18)
[2017-04-12 06:04] LABS: AST (GOT) 38 U/L (15-37)
[2017-04-12 06:05] LABS: ALT (GPT) 19 U/L (12-78); GLOMERULAR FILTRATION RATE 57 ML/MIN (>89)
[2017-04-12 06:06] LABS: TOTAL BILIRUBIN ADULT 0.5 MG/DL (0.2-1.0)
[2017-04-12 06:07] LABS: ALKALINE PHOSPHATASE 62 U/L (45-117)
[2017-04-12] MEDS: RESP: ALBUTEROL 2.5 MG/IPRATROPIUM 0.5 MG NEB (SCH) NEB ×4 (07:10→20:04)
[2017-04-12] MEDS: DOCUSATE SODIUM 50 MG/SENNA 8.6 MG TAB PO SCH ×2 (08:09→20:51)
[2017-04-12] MEDS: PANTOPRAZOLE SOD 20 MG DELAYED RELEASE TAB PO SCH (08:09)
[2017-04-12] MEDS: METOPROLOL TARTRATE 25 MG TAB PO SCH ×2 (08:09→20:51)
[2017-04-12] MEDS: AZITHROMYCIN INJ 500 MG in SODIUM CHLOR 0.9% 250 ML INJ 250 ML IV SCH (08:10)
[2017-04-12] MEDS: guaiFENesin E.R. 600 MG TAB PO SCH ×2 (08:10→20:51)
[2017-04-12] MEDS: BUDESONIDE-FORMOTEROL 160/4.5 MCG INHALER INH SCH ×2 (08:25→20:51)
[2017-04-12] MEDS: SODIUM CHLORIDE 0.9% FLUSH 10 ML FLUSH IV FLUSH SCH ×2 (08:25→20:50)
--- NOTE | 2017-04-12 12:27 | HHI.PR ---
Subjective Remarks Coughing up a lot of clear sputum, denies fever chills or dyspnea. Objective Vitals Vital Signs Date Time Temp Pulse Resp B/P (MAP) Pulse Ox O2 Delivery O2 Flow Rate FiO2 04/12/17 08:00 98.7 106 22 110/62 (78) 97 04/12/17 08:00 106 04/12/17 07:20 95 Nasal Cannula 3.00 04/12/17 06:00 102 04/12/17 05:26 97.9 104 24 106/61 (76) 97 04/12/17 04:00 98 04/12/17 02:00 106 04/12/17 00:00 112 04/12/17 00:00 98.5 92 30 110/62 (78) 96 04/11/17 23:00 94 28 94 04/11/17 22:16 93 Nasal Cannula 3.00 04/11/17 22:00 88 34 96 04/11/17 22:00 88 04/11/17 20:00 98.0 80 32 104/56 (72) 96 04/11/17 20:00 80 04/11/17 19:39 96 21 04/11/17 18:00 76 24 100/56 (71) 97 04/11/17 18:00 76 04/11/17 16:12 98 21 04/11/17 16:00 76 04/11/17 16:00 98.3 76 33 101/54 (70) 97 04/11/17 15:30 72 30 106/55 (72) 97 04/11/17 15:00 74 30 96/50 (65) 96 04/11/17 14:30 70 24 96/57 (70) 97 04/11/17 14:00 68 23 94/53 (67) 97 04/11/17 14:00 70 04/11/17 13:30 70 26 98/55 (69) 97 04/11/17 13:23 98.5 70 21 93/58 (70) 98 I/O 04/11/17 04/11/17 04/11/17 04/12/17 04/12/17 04/12/17 07:00 15:00 23:00 07:00 15:00 23:00 Intake Total 2350 ml 2120 ml 820 ml 1478 ml Output Total 100 ml 500 ml 4201 ml Balance 2250 ml 2120 ml 320 ml -2723 ml Intake Oral 120 ml 320 ml 960 ml IV Total 2350 ml 2000 ml 500 ml 518 ml Other 0 ml Output Urine Total 100 ml 500 ml 4200 ml Stool Total 1 ml # Bowel Movements 0 Result Diagram: 04/12/1742404/12/17424 Objective Remarks GENERAL: Well-nourished, well-developed elderly CM patient. SKIN: Warm and dry. HEAD: Normocephalic. EYES: No scleral icterus. No injection or drainage. NECK: Supple, trachea midline. No JVD or lymphadenopathy. CARDIOVASCULAR: Regular rate and rhythm without murmurs, gallops, or rubs. RESPIRATORY: Breath sounds with rhonchi bilaterally. No accessory muscle use. GASTROINTESTINAL: Abdomen soft, non-tender, nondistended. EXTREMITIES: No cyanosis, or edema. NEUROLOGICAL: Awake, alert, and oriented x 3. Non-focal. A/P Problem List: (1) Sepsis ICD Code: A41.9 - Sepsis, unspecified organism Status: Acute (2) PNA (pneumonia) ICD Code: J18.9 - PNA (pneumonia) Status: Acute Assessment and Plan -Bibasilar Pneumonia, community acquired, meet severe sepsis criteria- clinically improved, VSS - cont rocephin, zithromax, solumedrol - appreciate pulm input. cont bronchodilators and O2 via NC. - HTN - cont metoprolol -RLS - cont requip -Hypothryoid - cont synthroid -DVT px - lovenox Dena Gomez MD Apr 12, 2017 12:27
[2017-04-12] MEDS: ENOXAPARIN SODIUM 30 MG/0.3 ML SYRINGE SQ SCH (13:00)
--- NOTE | 2017-04-12 20:08 | HHI.PR ---
Subjective Remarks SOB and cough.More wheezing now. On Solumedrol. Objective Vital Signs Date Time Temp Pulse Resp B/P (MAP) Pulse Ox O2 Delivery O2 Flow Rate FiO2 04/12/17 18:00 104 04/12/17 16:00 110 38 129/74 (92) 92 04/12/17 16:00 104 04/12/17 14:00 102 04/12/17 12:00 100 04/12/17 12:00 97.9 100 23 106/62 (77) 96 04/12/17 08:00 98.7 106 22 110/62 (78) 97 04/12/17 08:00 106 04/12/17 07:20 95 Nasal Cannula 3.00 04/12/17 06:00 102 04/12/17 05:26 97.9 104 24 106/61 (76) 97 04/12/17 04:00 98 04/12/17 02:00 106 04/12/17 00:00 112 04/12/17 00:00 98.5 92 30 110/62 (78) 96 04/11/17 23:00 94 28 94 04/11/17 22:16 93 Nasal Cannula 3.00 04/11/17 22:00 88 34 96 04/11/17 22:00 88 I/O 04/11/17 04/11/17 04/11/17 04/12/17 04/12/17 04/12/17 07:00 15:00 23:00 07:00 15:00 23:00 Intake Total 2350 ml 2120 ml 820 ml 1478 ml 1230 ml Output Total 100 ml 500 ml 4201 ml 3600 ml Balance 2250 ml 2120 ml 320 ml -2723 ml -2370 ml Intake Oral 120 ml 320 ml 960 ml 1230 ml IV Total 2350 ml 2000 ml 500 ml 518 ml Other 0 ml Output Urine Total 100 ml 500 ml 4200 ml 3600 ml Stool Total 1 ml # Bowel Movements 0 Result Diagram: 04/12/17 0425 04/12/17 0425 Objective Remarks GENERAL: This elderly man is pale, alert and mildly dyspneic. VITAL SIGNS: Blood pressure is 130/70, pulse is 88, respirations 22, temperature 98.2. HEAD, EYES, EARS, NOSE, THROAT: Head normocephalic. The pupils are reactive and equal. Tongue is moist. Nasal mucosa edematous. Throat is mildly injected. Ears have no inflammation. NECK: The neck is supple. No venous distention. No thyromegaly or lymphadenopathy. CHEST: Decreased excursions with occasional crackles at the lung bases more so on the left side. Wheezes scattered. HEART: Heart sounds are irregular. S1-S2. No murmur. No S3 or gallop. ABDOMEN: Abdomen soft and protuberant. No masses. No organomegaly or tenderness. The bowel sounds are active. EXTREMITIES: Decreased peripheral pulses. No edema. No calf tenderness. NEUROLOGIC: Reflexes are 1+. No gross motor deficits. SKIN: No lesions are noted. Assessment and Plan Assessment and Plan IMPRESSION: 1. Basilar pneumonia with sepsis. 2. Hypotension. 3. Chronic obstructive pulmonary disease. 4. Asbestos exposure. 5. History of hypertension. 6. Hyperlipidemia. 7. Coronary artery disease. Plan : 1. Place on o2 to 4 L. 2. Solumderol 40 mg IV q6h. 3. Add lasix 20 mg IV BID. 4. Kcl tab 20 meq bid. 5. Continue antibiotics. 6. BMP in am. Nitin Magaña MD Apr 12, 2017 20:08
[2017-04-12] MEDS ORDERED: FUROSEMIDE 40 MG/4 ML VIAL IV PUSH ONE (20:15)
[2017-04-12] MEDS: POTASSIUM CHLORIDE 20 MEQ CONTROLLED RELEASE TAB PO SCH (20:52)
[2017-04-12] MEDS: SODIUM CHLORIDE 0.9% FLUSH 10 ML FLUSH IV FLUSH PRN (23:17)
[2017-04-13] VITALS (9 sets, daily range): BP systolic 100–106; BP diastolic 55–73; PULSE 90–134; RESP 21–37; TEMP 98–98.9; O2SAT 92–96
[2017-04-13] MEDS: RESP: ALBUTEROL 2.5 MG/IPRATROPIUM 0.5 MG NEB (PRN) NEB (03:03)
[2017-04-13] MEDS: RESP: ACETYLCYSTEINE 20% 30 ML NEB NEB SCH ×6 (03:03→23:28)
[2017-04-13 05:47] LABS: POTASSIUM 3.4 MEQ/L (3.5-5.1)
[2017-04-13] MEDS: cefTRIAXone INJ 1,000 MG in SODIUM CHLORIDE 0.9% INJ 100 ML IV SCH (05:50)
[2017-04-13] MEDS: methylPREDNISolone SOD SUCC 40 MG/1 ML VIAL IV PUSH SCH ×4 (05:50→23:36)
[2017-04-13 05:53] LABS: BICARBONATE 21.7 MEQ/L (21.0-32.0)
[2017-04-13] MEDS: LEVOTHYROXINE SODIUM 25 MCG TAB PO SCH (05:58)
[2017-04-13] MEDS: AZITHROMYCIN INJ 500 MG in SODIUM CHLOR 0.9% 250 ML INJ 250 ML IV SCH (07:31)
[2017-04-13] MEDS: RESP: ALBUTEROL 2.5 MG/IPRATROPIUM 0.5 MG NEB (SCH) NEB ×4 (07:37→20:33)
[2017-04-13] MEDS: SODIUM CHLORIDE 0.9% FLUSH 10 ML FLUSH IV FLUSH SCH ×2 (08:52→20:44)
[2017-04-13] MEDS: FUROSEMIDE 20 MG/2 ML VIAL IV PUSH SCH ×2 (08:52→18:00)
[2017-04-13] MEDS: BUDESONIDE-FORMOTEROL 160/4.5 MCG INHALER INH SCH ×2 (08:52→20:42)
[2017-04-13] MEDS: METOPROLOL TARTRATE 25 MG TAB PO SCH ×4 (08:53→20:46)
[2017-04-13] MEDS: PANTOPRAZOLE SOD 20 MG DELAYED RELEASE TAB PO SCH (08:53)
[2017-04-13] MEDS: DOCUSATE SODIUM 50 MG/SENNA 8.6 MG TAB PO SCH ×2 (08:53→20:42)
[2017-04-13] MEDS: POTASSIUM CHLORIDE 20 MEQ CONTROLLED RELEASE TAB PO SCH ×2 (08:54→20:42)
[2017-04-13] MEDS: guaiFENesin E.R. 600 MG TAB PO SCH ×2 (08:54→20:45)
[2017-04-13] MEDS: ENOXAPARIN SODIUM 30 MG/0.3 ML SYRINGE SQ SCH (11:14)
--- NOTE | 2017-04-13 12:20 | HHI.PR ---
Subjective Remarks Patient on 4 L nasal cannula and her nurse she desats to the 80s with any exertion. Patient complains of mild dyspnea. States his cough is improved however he has a chronic cough. He states he's not really producing any more sputum. Objective Vitals Vital Signs Date Time Temp Pulse Resp B/P (MAP) Pulse Ox O2 Delivery O2 Flow Rate FiO2 04/13/17 12:00 100 04/13/17 12:00 98.0 100 26 101/61 (74) 94 04/13/17 08:00 98.5 98 22 102/73 (83) 96 04/13/17 08:00 90 04/13/17 07:38 95 Nasal Cannula 4.00 04/13/17 04:00 96 04/13/17 04:00 96 37 102/55 (71) 93 04/13/17 00:45 Venturi Mask 6.00 40 04/13/17 00:00 96 04/13/17 00:00 98.9 96 21 106/65 (79) 94 04/12/17 22:19 93 04/12/17 22:00 98 27 92 04/12/17 20:47 112 37 125/71 (89) 91 04/12/17 20:46 112 37 134/62 (86) 91 04/12/17 20:04 93 Nasal Cannula 4.00 04/12/17 20:00 102 32 92 04/12/17 20:00 105 04/12/17 19:06 97.8 108 36 121/67 (85) 91 04/12/17 18:00 104 04/12/17 16:00 110 38 129/74 (92) 92 04/12/17 16:00 104 04/12/17 14:00 102 I/O 04/12/17 04/12/17 04/12/17 04/13/17 04/13/17 04/13/17 07:00 15:00 23:00 07:00 15:00 23:00 Intake Total 1478 ml 1230 ml 240 ml Output Total 4201 ml 3600 ml 2325 ml Balance -2723 ml -2370 ml -2085 ml Intake Oral 960 ml 1230 ml 240 ml IV Total 518 ml Output Urine Total 4200 ml 3600 ml 2325 ml Stool Total 1 ml 0 ml # Voids 7 Result Diagram: 04/12/17 0425 04/13/17 0422 Objective Remarks GENERAL: Well-nourished, well-developed elderly CM patient. SKIN: Warm and dry. HEAD: Normocephalic. EYES: No scleral icterus. No injection or drainage. NECK: Supple, trachea midline. No JVD or lymphadenopathy. CARDIOVASCULAR: Regular rate and rhythm without murmurs, gallops, or rubs. RESPIRATORY: Breath sounds with rhonchi bilaterally. Patient also appears to have mucus in the upper airway, pharynx. No accessory muscle use. GASTROINTESTINAL: Abdomen soft, non-tender, nondistended. EXTREMITIES: No cyanosis, or edema. NEUROLOGICAL: Awake, alert, and oriented x 3. Non-focal. A/P Problem List: (1) Sepsis ICD Code: A41.9 - Sepsis, unspecified organism Status: Acute (2) PNA (pneumonia) ICD Code: J18.9 - PNA (pneumonia) Status: Acute Assessment and Plan -Bibasilar Pneumonia, community acquired, meet severe sepsis criteria-he worsened yesterday and is hypoxemic requiring oxygen- cont rocephin, zithromax, solumedrol - appreciate pulm input. cont bronchodilators and O2 via NC. He is on Lasix and Solu-Medrol as well. I will check a speech therapy swallow evaluation as he appears to not be clearing his upper airway secretions well. - HTN - cont metoprolol -RLS - cont requip -Hypothryoid - cont synthroid -DVT px - lovenox Dena Gomez MD Apr 13, 2017 12:20
[2017-04-13] MEDS: SODIUM CHLORIDE 0.9% FLUSH 10 ML FLUSH IV FLUSH PRN (18:01)
[2017-04-13] MEDS ORDERED: METOPROLOL TARTRATE 25 MG TAB PO ONE (23:30)
[2017-04-14] VITALS (45 sets, daily range): BP systolic 70–129; BP diastolic 43–80; PULSE 46–156; RESP 10–34; TEMP 97.7–98.5; O2SAT 89–96
[2017-04-14] MEDS ORDERED: SODIUM CHLOR 0.9% 250 ML INJ 250 ML IV ONE ×2 (03:15→05:00)
[2017-04-14] MEDS: RESP: ACETYLCYSTEINE 20% 30 ML NEB NEB SCH ×3 (04:32→11:01)
[2017-04-14] MEDS: RESP: ALBUTEROL 2.5 MG/IPRATROPIUM 0.5 MG NEB (PRN) NEB (04:32)
[2017-04-14] MEDS: methylPREDNISolone SOD SUCC 40 MG/1 ML VIAL IV PUSH SCH ×4 (06:19→22:00)
[2017-04-14] MEDS: LEVOTHYROXINE SODIUM 25 MCG TAB PO SCH (06:20)
[2017-04-14] MEDS: cefTRIAXone INJ 1,000 MG in SODIUM CHLORIDE 0.9% INJ 100 ML IV SCH (06:20)
[2017-04-14] MEDS: RESP: ALBUTEROL 2.5 MG/IPRATROPIUM 0.5 MG NEB (SCH) NEB ×2 (07:42→11:01)
[2017-04-14] MEDS: BUDESONIDE-FORMOTEROL 160/4.5 MCG INHALER INH SCH ×2 (08:22→21:00)
[2017-04-14] MEDS: POTASSIUM CHLORIDE 20 MEQ CONTROLLED RELEASE TAB PO SCH (08:22)
[2017-04-14] MEDS: guaiFENesin E.R. 600 MG TAB PO SCH ×2 (08:22→21:27)
[2017-04-14] MEDS: PANTOPRAZOLE SOD 20 MG DELAYED RELEASE TAB PO SCH (08:22)
[2017-04-14] MEDS: DOCUSATE SODIUM 50 MG/SENNA 8.6 MG TAB PO SCH ×2 (08:22→21:27)
[2017-04-14] MEDS: AZITHROMYCIN INJ 500 MG in SODIUM CHLOR 0.9% 250 ML INJ 250 ML IV SCH (08:23)
[2017-04-14] MEDS: FUROSEMIDE 20 MG/2 ML VIAL IV PUSH SCH (08:23)
[2017-04-14] MEDS: SODIUM CHLORIDE 0.9% FLUSH 10 ML FLUSH IV FLUSH SCH ×2 (08:23→21:27)
--- NOTE | 2017-04-14 09:58 | EKG ---
Date Performed: 04/14/2017 Time Performed: 04:26:53 PTAGE: 86 years EKG: ATRIAL FIBRILLATION LEFT BUNDLE BRANCH BLOCK ABNORMAL ECG PREVIOUS TRACING : 04/11/2017 03.55 DOCTOR: Angel Howard Interpretating Date/Time 04/14/2017 09:57:34
--- NOTE | 2017-04-14 10:11 | RADRPT ---
EXAM DATE/TIME: 04/14/2017 09:56 [place] COMPARISON: CHEST SINGLE AP, April 12, 2017, 5:21. INDICATIONS : Pneumonia. Short of breath. RADIATION DOSE: 12.31 CTDIvol (mGy) MEDICAL HISTORY : Chronic obstructive pulmonary disease. Cardiovascular disease Gastroesophageal reflux disease. Hypert ension. SURGICAL HISTORY : CABG Cholecystectomy. ENCOUNTER: Initial ACUITY: 4 - 6 days PAIN SCALE: 2/10 LOCATION: chest TECHNIQUE: Volumetric scanning of the chest was performed. Using automated exposure control and adjustment of t he mA and/or kV according to patient size, radiation dose was kept as low as reasonably achievable to obtain optimal diagnostic quality images. DICOM format image data is available electronically for r eview and comparison. Follow-up recommendations for detected pulmonary nodules are based at a minimum on nodule size and pa tient risk factors according to Fleischner Society Guidelines. FINDINGS: LUNGS: Patchy groundglass parenchymal opacity throughout both lungs, slightly worse on the right than the le ft. Airspace consolidation in the posterior left lung base. PLEURAE: Small bilateral effusions. MEDIASTINUM: Moderate central mediastinal lucas enlargement with mildly enlarged nodes present in multiple compart ments, largest a 2 cm precarinal node. Coronary calcifications present. AXILLAE: Within normal limits. No lymphadenopathy. MUSCULOSKELETAL: Within normal limits for patient age. MISCELLANEOUS: The visualized upper abdominal organs demonstrate no acute abnormality. CONCLUSION: Bilateral infiltrates and small effusions. Mild multicompartment mediastinal adenopathy. Tulio Eric MD on April 14, 2017 at 10:06 Board Certified Radiologist. This report was verified electronically.
[2017-04-14] MEDS ORDERED: DIGOXIN 0.25 MG TAB PO ONE ×2 (10:45→19:00)
--- NOTE | 2017-04-14 10:50 | HHI.PR ---
Subjective Remarks Overnight patient developed afib with RVR, he received metoprolol 25 mg PO at midnight and then developed hypotension received 500 ml NS bolus. This morning BP 100/60, HR 130. Patient denies c/o or palpitations, Dr. Lee is his research chef, patient not aware of previous history of afib. Patient has chronic cough, unchanged. Remains on 4 liters NC. Objective Vitals Vital Signs Date Time Temp Pulse Resp B/P (MAP) Pulse Ox O2 Delivery O2 Flow Rate FiO2 04/14/17 09:01 146 25 113/76 (88) 94 04/14/17 08:38 146 33 103/80 (88) 94 04/14/17 08:01 98.3 150 33 85/77 (80) 90 04/14/17 08:00 123 04/14/17 07:44 96 Nasal Cannula 4.00 04/14/17 07:01 98 10 102/67 (79) 94 04/14/17 04:01 98.0 96 20 80/62 (68) 90 04/14/17 04:01 96 04/14/17 03:45 96 04/14/17 03:01 104 04/14/17 03:01 104 25 70/46 (54) 95 04/14/17 02:43 118 34 79/51 (60) 89 04/14/17 02:02 118 22 74/52 (59) 90 04/14/17 02:02 118 04/14/17 02:01 110 04/14/17 01:01 122 18 100/60 (73) 92 04/14/17 01:00 124 04/14/17 00:01 97.7 126 24 112/69 (83) 94 04/14/17 00:00 130 04/13/17 22:50 134 28 104/70 (81) 92 04/13/17 20:33 94 Nasal Cannula 4.00 04/13/17 20:00 98.6 96 34 106/68 (81) 95 04/13/17 20:00 96 04/13/17 16:00 98.5 106 25 100/55 (70) 96 04/13/17 16:00 94 04/13/17 12:00 100 04/13/17 12:00 98.0 100 26 101/61 (74) 94 I/O 1004/13/17 04/13/17 04/14/17 04/14/17 04/14/17 07:00 15:00 23:00 07:00 15:00 23:00 Intake Total 240 ml 250 ml 360 ml 980 ml 320 ml Output Total 2325 ml 1101 ml 700 ml Balance -2085 ml 250 ml -741 ml 280 ml 320 ml Intake Oral 240 ml 360 ml 480 ml 320 ml IV Total 250 ml 500 ml Output Urine Total 2325 ml 1100 ml 700 ml Stool Total 0 ml 1 ml # Voids 7 Result Diagram: 04/12/1742404/13/17421 Objective Remarks GENERAL: Well-nourished, well-developed elderly CM patient. SKIN: Warm and dry. HEAD: Normocephalic. EYES: No scleral icterus. No injection or drainage. NECK: Supple, trachea midline. No JVD or lymphadenopathy. CARDIOVASCULAR: Regular rate and rhythm without murmurs, gallops, or rubs. RESPIRATORY: Breath sounds with rhonchi in left lower lung field. Patient also appears to have mucus in the upper airway, pharynx. No accessory muscle use. GASTROINTESTINAL: Abdomen soft, non-tender, nondistended. EXTREMITIES: No cyanosis, or edema. NEUROLOGICAL: Awake, alert, and oriented x 3. Non-focal. A/P Problem List: (1) Sepsis ICD Code: A41.9 - Sepsis, unspecified organism Status: Acute (2) PNA (pneumonia) ICD Code: J18.9 - PNA (pneumonia) Status: Acute (3) Atrial fibrillation with RVR ICD Code: I48.91 - Unspecified atrial fibrillation Assessment and Plan -Bibasilar Pneumonia, community acquired, i ordered chest CT today and reviewed images it shows b/l multifocal patchy infiltrates with consolidation in left lung base and trace b/l pleural effusions. Patient has history of recurrent LLL pneumonia with bronchoscopy in the past. He is requiring 4 liters O2. cont rocephin, zithromax, solumedrol - appreciate pulm input. cont bronchodilators and O2 via NC. hold lasix due to hypotension -iraida regular diet and thin liquids per speech therapy swallow evaluation pulmonology following -Atrial fibrillation with RVR - appears to be a new onset, his research chef is Dr. Lee. He had severe hypotension last night in response to metoprolol 25 mg PO. Will load with oral digoxin, check 2d echo and tsh. consult to his research chef. - HTN - blood pressure running low, hold metoprolol. -RLS - cont requip -Hypothryoid - cont synthroid -DVT px - lovenox Dena Gomez MD Apr 14, 2017 10:50
[2017-04-14] MEDS: ASPIRIN EC 81 MG TABEC PO SCH (11:35)
[2017-04-14 12:26] LABS: LACTIC ACID GHOST NOT REPORTABLE
[2017-04-14] MEDS ORDERED: DILTIAZEM INJ 125 MG in SODIUM CHLORIDE 0.9% INJ 100 ML IV PRN ×2 (13:00→22:30)
[2017-04-14] MEDS ORDERED: DILTIAZEM HCL 25 MG/5 ML VIAL IV PUSH PRN (13:15)
[2017-04-14] MEDS ORDERED: DILTIAZEM HCL 25 MG/5 ML VIAL IV ONE (13:30)
--- NOTE | 2017-04-14 13:52 | MB ---
cc: MARIOLA STEAWRT MD DATE OF CONSULTATION: 04/14/2017 REASON FOR CONSULTATION Atrial fibrillation. HISTORY OF PRESENT ILLNESS Mr. Oropeza is a pleasant 86-year-old patient of my partner, Dr. Lee. He does have a history of CABG, hypertension and hyperlipidemia. He presented to the emergency room on 04/11 and was admitted with left lower lobe pneumonia and sepsis. The patient has subsequently developed atrial fibrillation with rapid ventricular rate and cardiology was subsequently consulted. The patient does report that he has had some intermittent episodes of chest heaviness and jaw discomfort. He is currently pain free. MEDICATIONS Current medications include: 1. Digoxin. 2. Aspirin. 3. Requip. 4. Azithromycin. 5. Symbicort. 6. Solu-Medrol. 7. Lovenox. 8. Albuterol. 9. Levothyroxine. 10. Zofran. As per the records. PAST MEDICAL HISTORY 1. 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 2. Aortic sclerosis. 3. Bronchiectasis. 4. Coronary artery disease with a CABG in 1986. He subsequently did have a stent. By catheterization in December of 2009 he had severe three-vessel paimiut disease and a patent XIONG to LAD, SVG to OM, occluded SVG to RCA and occluded SVG to the diagonal with good [id number] collaterals. 5. He also has a history of hypertension. 6. Hyperlipidemia. 7. Hypothyroidism. 8. Pneumonia. SOCIAL HISTORY The patient is and a former smoker. FAMILY HISTORY Noncontributory. PHYSICAL EXAMINATION VITAL SIGNS: 156, 24, 105/79. GENERAL: He is a well-appearing elderly man who is in no apparent distress. NECK: His neck is free from JVD. LUNGS: The lungs have bilateral rhonchi. CARDIOVASCULAR: He does have an irregular tachycardic rhythm. No rubs or gallops appreciated. ABDOMEN: The abdomen is soft. EXTREMITIES: Free from edema. LABORATORY FINDINGS Lab values show white count 12.0, creatinine of 1.2. EKG Shows atrial fibrillation with rapid ventricular rate. ASSESSMENT AND PLAN Atrial fibrillation - the patient is in RVR. There does appear to be some correlation to the breathing treatments. After the Ventolin inhaler his heart rate does jump from the 120s to about 150. The patient reports that this does not give him any breathing relief and thusly, I am going to discontinue this. As well we are going to try and slow his heart rate down with diltiazem. If he tolerates this IV injection, we will schedule the Cardizem drip per protocol. The patient's CHADS Vas score is over 2 and thus, anticoagulation is reasonable. I am going to up his Lovenox. Pneumonia - this is being managed by primary team. CAD - the patient has had some intermittent chest pain. It is not clear if this is either related to directly the pneumonia or indirectly with increased cardiac strain. In any case, he is not a revascularization candidate at this point. After he clears from the sepsis and pneumonia, if he has persistent symptoms, we may wish to pursue further evaluation with stress testing or catheterization as felt appropriate at that time. Mariola Stewart M.D. CARLOS/TLL /12:45 PM /1:25 PM
[2017-04-14] MEDS ORDERED: ENOXAPARIN SODIUM 80 MG/0.8 ML SYRINGE SQ SCH (15:00)
--- NOTE | 2017-04-14 19:17 | HHI.PR ---
Subjective Remarks Less SOB and cough.. On Solumedrol. IV. Off diuretic since BP was Low. CT chest Noted. has Mild mediastinal adenopathy and Vascular congestion Objective Vital Signs Date Time Temp Pulse Resp B/P (MAP) Pulse Ox O2 Delivery O2 Flow Rate FiO2 04/14/17 16:15 100 28 104/70 (81) 92 04/14/17 16:04 120 26 115/70 (85) 93 04/14/17 16:00 120 28 92 04/14/17 16:00 94 04/14/17 15:45 114 29 118/79 (92) 94 04/14/17 15:39 131 04/14/17 15:38 122 28 116/79 (91) 95 04/14/17 15:30 114 32 93 04/14/17 15:30 114 32 93 04/14/17 15:30 130 116/79 04/14/17 15:00 120 26 117/79 (92) 92 04/14/17 14:30 82 19 95 04/14/17 14:00 90 18 96/56 (69) 94 04/14/17 13:30 98 25 94 04/14/17 13:00 118 30 103/70 (81) 93 04/14/17 12:58 114 30 97/65 (76) 92 04/14/17 12:54 130 32 102/61 (75) 93 04/14/17 12:51 154 30 110/69 (83) 94 04/14/17 12:49 154 32 104/76 (85) 93 04/14/17 12:30 154 29 96 04/14/17 12:08 98.5 156 31 110/76 (87) 95 04/14/17 12:00 156 04/14/17 12:00 98 04/14/17 11:30 156 27 94 04/14/17 10:30 154 29 95 04/14/17 10:15 154 24 105/79 (88) 92 04/14/17 09:01 146 25 113/76 (88) 94 04/14/17 08:38 146 33 103/80 (88) 94 04/14/17 08:01 98.3 150 33 85/77 (80) 90 04/14/17 08:00 123 04/14/17 07:44 96 Nasal Cannula 4.00 04/14/17 07:01 98 10 102/67 (79) 94 04/14/17 04:01 98.0 96 20 80/62 (68) 90 04/14/17 04:01 96 04/14/17 03:45 96 04/14/17 03:01 104 04/14/17 03:01 104 25 70/46 (54) 95 04/14/17 02:43 118 34 79/51 (60) 89 04/14/17 02:02 118 22 74/52 (59) 90 04/14/17 02:02 118 04/14/17 02:01 110 04/14/17 01:01 122 18 100/60 (73) 92 04/14/17 01:00 124 04/14/17 00:01 97.7 126 24 112/69 (83) 94 04/14/17 00:00 130 04/13/17 22:50 134 28 104/70 (81) 92 04/13/17 20:33 94 Nasal Cannula 4.00 04/13/17 20:00 98.6 96 34 106/68 (81) 95 04/13/17 20:00 96 I/O 04/13/17 04/13/17 04/13/17 04/14/17 04/14/17 04/14/17 07:00 15:00 23:00 07:00 15:00 23:00 Intake Total 240 ml 250 ml 360 ml 980 ml 570 ml 30 ml Output Total 2325 ml 1101 ml 700 ml 750 ml Balance -2085 ml 250 ml -741 ml 280 ml 570 ml -720 ml Intake Oral 240 ml 360 ml 480 ml 320 ml IV Total 250 ml 500 ml 250 ml 30 ml Output Urine Total 2325 ml 1100 ml 700 ml 750 ml Stool Total 0 ml 1 ml # Voids 7 Result Diagram: 04/12/17 0425 04/13/17 0422 Objective Remarks GENERAL: This elderly man is pale, alert and not dyspneic. VITAL SIGNS: Blood pressure is 130/70, pulse is 88, respirations 22, temperature 98.2. HEAD, EYES, EARS, NOSE, THROAT: Head normocephalic. The pupils are reactive and equal. Tongue is moist. Nasal mucosa clear. Throat is clear NECK: The neck is supple. No venous distention. No thyromegaly or lymphadenopathy. CHEST: Decreased excursions with occasional crackles at the lung bases more so on the left side. Wheezes scattered. HEART: Heart sounds are irregular. S1-S2. No murmur. No S3 or gallop. ABDOMEN: Abdomen soft and protuberant. No masses. No organomegaly or tenderness. The bowel sounds are active. EXTREMITIES: Decreased peripheral pulses.1 + edema. No calf tenderness. NEUROLOGIC: Reflexes are 1+. No gross motor deficits. SKIN: No lesions are noted. Assessment and Plan Assessment and Plan IMPRESSION: 1. Basilar pneumonia with sepsis. 2. Hypotension. 3. Chronic obstructive pulmonary disease. 4. Asbestos exposure. 5. History of hypertension. 6. Hyperlipidemia. 7. Coronary artery disease. Plan : 1. Place on o2 to 4 L. 2. Solumderol 40 mg IV q8h. 3. Hold lasix 4. Up in chair. 5. Continue antibiotics. 6. Symbicort 160/4.5 mcg , 2 puffs bid 7. CBC,BMP in am Nitin Magaña MD Apr 14, 2017 19:17
[2017-04-15] VITALS (21 sets, daily range): BP systolic 112–167; BP diastolic 61–87; PULSE 70–98; RESP 17–47; TEMP 97.5–98.5; O2SAT 91–96
[2017-04-15 05:38] LABS: POTASSIUM 4.2 MEQ/L (3.5-5.1)
[2017-04-15 05:49] LABS: BICARBONATE 23.9 MEQ/L (21.0-32.0)
[2017-04-15] MEDS: methylPREDNISolone SOD SUCC 40 MG/1 ML VIAL IV PUSH SCH ×3 (05:59→21:31)
[2017-04-15] MEDS: cefTRIAXone INJ 1,000 MG in SODIUM CHLORIDE 0.9% INJ 100 ML IV SCH (06:00)
[2017-04-15] MEDS: LEVOTHYROXINE SODIUM 25 MCG TAB PO SCH (06:00)
[2017-04-15] MEDS: SODIUM CHLORIDE 0.9% FLUSH 10 ML FLUSH IV FLUSH PRN (06:00)
[2017-04-15 06:33] LABS: DIGOXIN 1.1 NG/ML (0.8-2.0)
--- NOTE | 2017-04-15 08:05 | PD.CARD.PN ---
Subjective Subjective Remarks Pt feels much better, rate controlled afib on tele, off IV cardizem Objective Medications Administered Medications Medications (Trade) Dose Ordered Sig/Vidya Route PRN Reason Start Time Stop Time Status Last Admin Dose Admin Azithromycin 500 mg/Sodium Chloride 250 ml @ 250 mls/hr Q24H IV 04/12/17 08:00 04/14/17 08:23 Ceftriaxone Sodium 1000 mg/ Sodium Chloride 100 ml @ 200 mls/hr Q24H IV 04/12/17 06:00 04/15/17 06:00 Sodium Chloride (NS Flush) 2 ml UNSCH PRN IV FLUSH FLUSH AFTER USING IV ACCESS 04/11/17 05:15 04/15/17 06:00 Sodium Chloride (NS Flush) 2 ml BID IV FLUSH 04/11/17 09:00 04/14/17 21:27 Acetaminophen/ Hydrocodone Bitart ([place] 5-325 Mg) 1 tab Q4H PRN PO PAIN SCALE 3 TO 5 04/11/17 05:15 04/11/17 23:03 Senna/Docusate Sodium (Marianela-Colace) 1 tab BID PO 04/11/17 09:00 04/14/17 21:27 Levothyroxine Sodium (Synthroid) 25 mcg DAILY@0700 PO 04/11/17 07:00 04/15/17 06:00 Pantoprazole Sodium (Protonix) 20 mg DAILY PO 04/11/17 09:00 04/14/17 08:22 Guaifenesin (Mucinex Er) 1,200 mg BID PO 04/11/17 13:00 04/14/17 21:27 Budesonide/ Formoterol Fumarate (Symbicort 160-4.5 Inh) 2 puff Q12HR INH 04/11/17 21:00 04/14/17 08:22 Ropinirole HCl (Requip) 0.25 mg BID PO 04/12/17 09:00 04/14/17 21:27 Furosemide (Lasix Inj) 20 mg BID@18 IV PUSH 04/13/17 09:00 Future Hold 04/13/17 18:00 Potassium Chloride (KCl) 20 meq Q12HR PO 04/12/17 21:00 Future Hold 04/14/17 08:22 Aspirin (Ecotrin Ec) 81 mg DAILY PO 04/14/17 11:00 04/14/17 11:35 Enoxaparin Sodium (Lovenox Inj) 75 mg Q24H SQ 04/14/17 15:00 04/14/17 15:20 Methylprednisolone Sodium Succinate (SoluMEDROL INJ) 40 mg Q8HR IV PUSH 04/14/17 22:00 04/15/17 05:59 Vital Signs / I&O Vital Signs Date Time Temp Pulse Resp B/P (MAP) Pulse Ox O2 Delivery O2 Flow Rate FiO2 04/15/17 06:00 82 28 123/74 (90) 95 04/15/17 04:00 84 04/15/17 04:00 98.0 84 22 119/65 (83) 93 04/15/17 02:00 74 17 118/65 (82) 91 04/15/17 00:00 84 04/15/17 00:00 98.5 84 26 115/68 (84) 94 04/14/17 23:00 86 04/14/17 22:50 46 106/43 04/14/17 22:09 58 27 106/43 (64) 92 04/14/17 22:00 46 04/14/17 22:00 50 27 103/60 (74) 92 04/14/17 21:25 93 Nasal Cannula 3.00 04/14/17 21:00 84 30 115/68 (84) 92 04/14/17 20:00 87 04/14/17 20:00 98.3 84 28 129/57 (81) 93 04/14/17 19:01 84 32 124/67 (86) 91 04/14/17 16:15 100 28 104/70 (81) 92 04/14/17 16:04 120 26 115/70 (85) 93 04/14/17 16:00 120 28 92 04/14/17 16:00 94 04/14/17 15:45 114 29 118/79 (92) 94 04/14/17 15:39 131 04/14/17 15:38 122 28 116/79 (91) 95 04/14/17 15:30 114 32 93 04/14/17 15:30 114 32 93 04/14/17 15:30 130 116/79 04/14/17 15:00 120 26 117/79 (92) 92 04/14/17 14:30 82 19 95 04/14/17 14:00 90 18 96/56 (69) 94 04/14/17 13:30 98 25 94 04/14/17 13:00 118 30 103/70 (81) 93 04/14/17 12:58 114 30 97/65 (76) 92 04/14/17 12:54 130 32 102/61 (75) 93 04/14/17 12:51 154 30 110/69 (83) 94 04/14/17 12:49 154 32 104/76 (85) 93 04/14/17 12:30 154 29 96 04/14/17 12:08 98.5 156 31 110/76 (87) 95 04/14/17 12:00 156 04/14/17 12:00 98 04/14/17 11:30 156 27 94 04/14/17 10:30 154 29 95 04/14/17 10:15 154 24 105/79 (88) 92 04/14/17 09:01 146 25 113/76 (88) 94 04/14/17 08:38 146 33 103/80 (88) 94 I/O 04/14/17 04/14/17 04/14/17 04/15/17 04/15/17 04/15/17 07:00 15:00 23:00 07:00 15:00 23:00 Intake Total 980 ml 570 ml 64 ml 400 ml Output Total 700 ml 750 ml 1050 ml Balance 280 ml 570 ml -686 ml -650 ml Intake Oral 480 ml 320 ml 300 ml IV Total 500 ml 250 ml 64 ml 100 ml Output Urine Total 700 ml 750 ml 1050 ml Physical Exam GENERAL: This is a well-nourished, well-developed patient, in no apparent distress. CARDIOVASCULAR: Regular rate and irregular rhythm without murmurs, gallops, or rubs. RESPIRATORY: Clear to auscultation. Breath sounds equal bilaterally. No wheezes , rales, or rhonchi. GASTROINTESTINAL: Abdomen soft, non-tender, nondistended. Normal, active bowel sounds MUSCULOSKELETAL: Extremities without clubbing, cyanosis, or edema. NEURO: Alert & Oriented x4 to person, place, time, situation. Moves all ext x4 Laboratory Laboratory Tests Test 04/14/17 10:25 04/14/17 13:05 04/15/17 04:17 Lactic Acid Level 3.5 mmol/L 3.2 mmol/L Thyroid Stimulating Hormone 3rd Gen 0.294 uIU/ML Blood Urea Nitrogen 34 MG/DL Creatinine 0.95 MG/DL Random Glucose 141 MG/DL Calcium Level 8.7 MG/DL Sodium Level 139 MEQ/L Potassium Level 4.2 MEQ/L Chloride Level 106 MEQ/L Carbon Dioxide Level 23.9 MEQ/L Anion Gap 9 MEQ/L Estimat Glomerular Filtration Rate 75 ML/MIN Digoxin Level 1.1 NG/ML Imaging Last Impressions Chest CT 04/14/17 0000 Signed Impressions: Service Date/Time: Friday, April 14, 2017 09:56 - CONCLUSION: Bilateral infiltrates and small effusions. Mild multicompartment mediastinal adenopathy. Tulio Eric MD Chest X-Ray 04/12/17 0600 Signed Impressions: Service Date/Time: Wednesday, April 12, 2017 05:21 - CONCLUSION: No significant change mild left greater than the right basilar consolidation. Tulio Llanes MD Assessment and Plan Problem List: (1) Atrial fibrillation with RVR ICD Codes: I48.91 - Unspecified atrial fibrillation Plan: Doing better, will add PO diltiazem at low dose for improved rate control as suspect digoxin will not be sufficient once pt ambulatory; stopped lovenox, started eliquis (2) PNA (pneumonia) ICD Codes: J18.9 - PNA (pneumonia) Status: Acute Assessment and Plan Doing great, will sign off and be avialble as needed, please call with questions. Abelardo Ndiaye MD Apr 15, 2017 08:05
[2017-04-15] MEDS: BUDESONIDE-FORMOTEROL 160/4.5 MCG INHALER INH SCH ×2 (09:00→09:19)
[2017-04-15] MEDS: DOCUSATE SODIUM 50 MG/SENNA 8.6 MG TAB PO SCH ×2 (09:18→21:31)
[2017-04-15] MEDS: DILTIAZEM-CD 120 MG CAP ER PO SCH (09:18)
[2017-04-15] MEDS: guaiFENesin E.R. 600 MG TAB PO SCH ×2 (09:18→21:31)
[2017-04-15] MEDS: PANTOPRAZOLE SOD 20 MG DELAYED RELEASE TAB PO SCH (09:18)
[2017-04-15] MEDS: DIGOXIN 0.125 MG TAB PO SCH (09:19)
[2017-04-15] MEDS: APIXABAN 5 MG TABLET PO SCH ×2 (09:19→21:31)
[2017-04-15] MEDS: ASPIRIN EC 81 MG TABEC PO SCH (09:19)
[2017-04-15] MEDS: AZITHROMYCIN INJ 500 MG in SODIUM CHLOR 0.9% 250 ML INJ 250 ML IV SCH (09:20)
[2017-04-15] MEDS: SODIUM CHLORIDE 0.9% FLUSH 10 ML FLUSH IV FLUSH SCH ×2 (09:20→21:31)
[2017-04-15 12:31] LABS: FREE T3 1.48 PG/ML (2.18-3.98); FREE T4 0.92 NG/DL (0.76-1.46)
--- NOTE | 2017-04-15 14:22 | HHI.PR ---
Subjective Remarks Patient's oxygen weaned to 1.5 liters. pt c/o feeling mucus stuck in his chest and throat, not producing sputum. c/o chronic "clack" in his throat. patient refuses symbicort. Objective Vitals Vital Signs Date Time Temp Pulse Resp B/P (MAP) Pulse Ox O2 Delivery O2 Flow Rate FiO2 04/15/17 08:00 84 35 126/87 (100) 94 04/15/17 08:00 85 04/15/17 08:00 97.7 04/15/17 08:00 85 04/15/17 07:25 93 Nasal Cannula 3.00 04/15/17 07:00 74 19 93 04/15/17 06:00 82 28 123/74 (90) 95 04/15/17 04:00 84 04/15/17 04:00 98.0 84 22 119/65 (83) 93 04/15/17 02:00 74 17 118/65 (82) 91 04/15/17 00:00 84 04/15/17 00:00 98.5 84 26 115/68 (84) 94 04/14/17 23:00 86 04/14/17 22:50 46 106/43 04/14/17 22:09 58 27 106/43 (64) 92 04/14/17 22:00 46 04/14/17 22:00 50 27 103/60 (74) 92 04/14/17 21:25 93 Nasal Cannula 3.00 04/14/17 21:00 84 30 115/68 (84) 92 04/14/17 20:00 87 04/14/17 20:00 98.3 84 28 129/57 (81) 93 04/14/17 19:01 84 32 124/67 (86) 91 04/14/17 16:15 100 28 104/70 (81) 92 04/14/17 16:04 120 26 115/70 (85) 93 04/14/17 16:00 120 28 92 04/14/17 16:00 94 04/14/17 15:45 114 29 118/79 (92) 94 04/14/17 15:39 131 04/14/17 15:38 122 28 116/79 (91) 95 04/14/17 15:30 114 32 93 04/14/17 15:30 114 32 93 04/14/17 15:30 130 116/79 04/14/17 15:00 120 26 117/79 (92) 92 04/14/17 14:30 82 19 95 I/O 04/14/17 04/14/17 04/14/17 04/15/17 04/15/17 04/15/17 06:59 14:59 22:59 06:59 14:59 22:59 Intake Total 980 ml 570 ml 64 ml 400 ml Output Total 700 ml 750 ml 1050 ml 200 ml Balance 280 ml 570 ml -686 ml -650 ml -200 ml Intake Oral 480 ml 320 ml 300 ml IV Total 500 ml 250 ml 64 ml 100 ml Output Urine Total 700 ml 750 ml 1050 ml 200 ml # Bowel Movements 0 Result Diagram: 04/12/17 0425 04/15/17 0417 Objective Remarks GENERAL: Well-nourished, well-developed elderly CM patient. SKIN: Warm and dry. HEAD: Normocephalic. EYES: No scleral icterus. No injection or drainage. NECK: Supple, trachea midline. No JVD or lymphadenopathy. CARDIOVASCULAR: Regular rate and rhythm without murmurs, gallops, or rubs. RESPIRATORY: Breath sounds with rhonchi in left lower lung field. Patient also appears to have mucus in the upper airway, pharynx. No accessory muscle use. GASTROINTESTINAL: Abdomen soft, non-tender, nondistended. EXTREMITIES: No cyanosis, or edema. NEUROLOGICAL: Awake, alert, and oriented x 3. Non-focal. A/P Problem List: (1) Sepsis ICD Code: A41.9 - Sepsis, unspecified organism Status: Acute (2) PNA (pneumonia) ICD Code: J18.9 - PNA (pneumonia) Status: Acute (3) Atrial fibrillation with RVR ICD Code: I48.91 - Unspecified atrial fibrillation Assessment and Plan -Bibasilar Pneumonia, community acquired, chest CT 03/15 with b/l multifocal patchy infiltrates with consolidation in left lung base and trace b/l pleural effusions. Patient has history of recurrent LLL pneumonia with bronchoscopy in the past. now weaned to 1.5 L O2 cont rocephin, zithromax, solumedrol - appreciate pulm input. hold lasix due to hypotension -iraida regular diet and thin liquids per speech therapy swallow evaluation pulmonology following -Atrial fibrillation with RVR - rate now controlled on PO cardizem and digoxin. cont eliquis. 2d echo pending. appreciate cardiology input. - HTN - blood pressure stable. -CAD - cont asa. -RLS - cont requip -Hypothryoid - cont synthroid -DVT px - eliquis transfer to med surg floor. Dena Gomez MD Apr 15, 2017 14:21
--- NOTE | 2017-04-15 15:07 | ECHRPT ---
Indication: ATRIAL FIB/FLUTTER CONCLUSIONS Normal left ventricular size. Wall thickness is normal. The left ventricular systolic function is low normal with an estimated ejection fraction in the rang e of 50- 55%. The left atrial size is moderately dilated. Mitral annular calcification is present. [id number] mitral valve regurgitation. There is mild tricuspid valve regurgitation. There is estimated mild pulmonary hypertension present (range 40-50 mmHg). BP: 123 / 74 HR: 85 Rhythm: Atrial fibrillation, Atrial flut ter MEASUREMENTS (Male / Female) Normal Values Technical Quality:Fair 2D ECHO LV Diastolic Diameter PLAX 4.4 cm 4.2 - 5.9 / 3.9 - 5.3 cm LV Systolic Diameter PLAX 3.4 cm IVS Diastolic Thickness 0.8 cm 0.6 - 1.0 / 0.6 - 0.9 cm LVPW Diastolic Thickness 0.8 cm 0.6 - 1.0 / 0.6 - 0.9 cm LV Relative Wall Thickness 0.4 LVOT Diameter 2.3 cm Aortic Root Diameter 3.3 cm LA Systolic Diameter LX 4.0 cm 3.0 - 4.0 / 2.7 - 3.8 cm DOPPLER AV Peak Velocity 142.0 cm/s AV Peak Gradient 8.1 mmHg AV Mean Gradient 5.0 mmHg AV Velocity Time Integral 28.9 cm LVOT Peak Velocity 50.4 cm/s LVOT Peak Gradient 1.0 mmHg LVOT Velocity Time Integral 10.0 cm LVOT Cardiac Index 1689.7 cm/minm AV Area Cont Eq vti 1.4 cm AV Area Cont Eq pk 1.5 cm Mitral E Point Velocity 93.8 cm/s Mitral A Point Velocity 42.9 cm/s Mitral E to A Ratio 2.2 LV E' Lateral Velocity 6.7 cm/s Mitral E to LV E' Lateral Ratio 13.9 LV E' Septal Velocity 6.3 cm/s Mitral E to LV E' Septal Ratio 14.8 TR Peak Velocity 313.0 cm/s TR Peak Gradient 39.2 mmHg Right Atrial Pressure 10.0 mmHg Pulmonary Artery Systolic Pressu 49.2 mmHg Right Ventricular Systolic Press 49.2 mmHg PV Peak Velocity 33.1 cm/s PV Peak Gradient 0.4 mmHg FINDINGS LEFT VENTRICLE Normal left ventricular size. Wall thickness is normal. The left ventricular systolic function is low normal with an estimated ejection fraction in the rang e of 50- 55%. RIGHT VENTRICLE Normal right ventricular size and systolic function. LEFT ATRIUM The left atrial size is moderately dilated. RIGHT ATRIUM The right atrial size is normal. ATRIAL SEPTUM Normal atrial septal thickness without atrial level shunting by limited color doppler interrogation. AORTA The aortic root and proximal ascending aorta are normal in size on limited imaging. MITRAL VALVE Mitral annular calcification is present. [id number]-[id number] mitral valve regurgitation. AORTIC VALVE Trileaflet aortic valve. No aortic valve stenosis or regurgitation. TRICUSPID VALVE There is mild tricuspid valve regurgitation. There is estimated mild pulmonary hypertension present (range 40-50 mmHg). PULMONARY VALVE No pulmonary valve regurgitation or stenosis. VESSELS The inferior vena cava is normal in size. PERICARDIUM No pericardial effusion. Angel Howard MD, FACC (Electronically Signed) Final Date:15 April 2017 15:05
[2017-04-16] VITALS (12 sets, daily range): BP systolic 112–139; BP diastolic 49–84; PULSE 62–90; RESP 17–29; TEMP 97.5–98.4; O2SAT 88–95
[2017-04-16 04:51] LABS: POTASSIUM 3.9 MEQ/L (3.5-5.1)
[2017-04-16] MEDS: cefTRIAXone INJ 1,000 MG in SODIUM CHLORIDE 0.9% INJ 100 ML IV SCH (06:13)
[2017-04-16] MEDS: methylPREDNISolone SOD SUCC 40 MG/1 ML VIAL IV PUSH SCH ×2 (06:13→14:41)
[2017-04-16] MEDS: LEVOTHYROXINE SODIUM 25 MCG TAB PO SCH (06:13)
[2017-04-16] MEDS: SODIUM CHLORIDE 0.9% FLUSH 10 ML FLUSH IV FLUSH PRN (06:13)
--- NOTE | 2017-04-16 07:50 | PD.CARD.PN ---
Subjective Subjective Remarks PT without complaints, wants d/c Objective Medications Current Medications Medications (Trade) Dose Ordered Sig/Vidya Route Start Time Stop Time Status Last Admin Azithromycin 500 mg/Sodium Chloride 250 ml @ 250 mls/hr Q24H IV 04/12/17 08:00 04/15/17 09:20 Ceftriaxone Sodium 1000 mg/ Sodium Chloride 100 ml @ 200 mls/hr Q24H IV 04/12/17 06:00 04/16/17 06:13 (NS Flush) 2 ml UNSCH PRN IV FLUSH 04/11/17 05:15 04/16/17 06:13 (NS Flush) 2 ml BID IV FLUSH 04/11/17 09:00 04/15/17 21:31 (Zofran Inj) 4 mg Q6H PRN IVP 04/11/17 05:15 (Tylenol) 650 mg Q6H PRN PO 04/11/17 05:15 ([place] 5-325 Mg) 1 tab Q4H PRN PO 04/11/17 05:15 04/11/17 23:03 (Morphine Inj) 2 mg Q3H PRN IV PUSH 04/11/17 05:15 (Marianela-Colace) 1 tab BID PO 04/11/17 09:00 04/15/17 21:31 (Milk Of Magnesia Liq) 30 ml Q12H PRN PO 04/11/17 05:15 (Senokot) 17.2 mg Q12H PRN PO 04/11/17 05:15 (Dulcolax Supp) 10 mg DAILY PRN RECTAL 04/11/17 05:15 (Lactulose Liq) 30 ml DAILY PRN PO 04/11/17 05:15 (Synthroid) 25 mcg DAILY@0700 PO 04/11/17 07:00 04/16/17 06:13 (Protonix) 20 mg DAILY PO 04/11/17 09:00 04/15/17 09:18 (Mucinex Er) 1,200 mg BID PO 04/11/17 13:00 04/15/17 21:31 (Requip) 0.25 mg BID PO 04/12/17 09:00 04/15/17 21:31 (KCl) 20 meq Q12HR PO 04/12/17 21:00 Future Hold 04/14/17 08:22 (Lanoxin) 0.125 mg DAILY PO 04/15/17 09:00 04/15/17 09:19 (Ecotrin Ec) 81 mg DAILY PO 04/14/17 11:00 04/15/17 09:19 (SoluMEDROL INJ) 40 mg Q8HR IV PUSH 04/14/17 22:00 04/16/17 06:13 Diltiazem HCl 125 mg/Sodium Chloride 125 ml @ 5 mls/hr TITRATE PRN IV 04/14/17 22:30 (Eliquis) 5 mg BID PO 04/15/17 09:00 04/15/17 21:31 (Cardizem Cd) 120 mg DAILY PO 04/15/17 09:00 04/15/17 09:18 Vital Signs / I&O Vital Signs Date Time Temp Pulse Resp B/P (MAP) Pulse Ox O2 Delivery O2 Flow Rate FiO2 04/16/17 04:00 98.3 88 28 113/49 (70) 90 04/16/17 04:00 62 04/16/17 00:00 64 04/16/17 00:00 64 22 119/73 (88) 89 04/15/17 23:00 70 04/15/17 20:00 97.5 82 23 135/77 (96) 94 04/15/17 20:00 82 04/15/17 19:20 92 Nasal Cannula 2.00 04/15/17 18:04 84 28 167/86 (113) 95 04/15/17 18:00 98 26 93 04/15/17 17:00 82 28 94 04/15/17 16:00 83 04/15/17 16:00 74 28 123/68 (86) 91 04/15/17 15:00 86 47 94 04/15/17 15:00 85 04/15/17 14:00 86 41 120/68 (85) 96 04/15/17 13:00 86 30 93 04/15/17 12:00 87 04/15/17 12:00 84 31 120/61 (80) 92 04/15/17 11:00 84 28 93 04/15/17 10:00 84 19 112/66 (81) 92 04/15/17 09:00 84 20 91 04/15/17 08:00 84 35 126/87 (100) 94 04/15/17 08:00 85 04/15/17 08:00 97.7 04/15/17 08:00 85 I/O 04/15/17 04/15/17 04/15/17 04/16/17 04/16/17 04/16/17 07:00 15:00 23:00 07:00 15:00 23:00 Intake Total 400 ml 340 ml 900 ml Output Total 1050 ml 200 ml 300 ml 1650 ml Balance -650 ml -200 ml 40 ml -750 ml Intake Oral 300 ml 340 ml 800 ml IV Total 100 ml 100 ml Output Urine Total 1050 ml 200 ml 300 ml 1650 ml # Voids 2 6 # Bowel Movements 0 0 0 Physical Exam GENERAL: Well developed, well nourished. No acute distress. HEENT: Jugular venous pressure is normal. CHEST: Lungs rhonchi to auscultation bilaterally. Unlabored respiratory effort. CARDIAC: irregular rate and rhythm without S3, S4, or murmur. ABDOMEN: Soft, nontender, no hepatosplenomegaly. Bowel sounds present. EXTREMITIES: No clubbing, cyanosis, or edema. Laboratory Laboratory Tests Test 04/15/17 10:14 04/16/17 04:15 Lactic Acid Level 2.4 mmol/L Free Thyroxine 0.92 NG/DL Free Triiodothyronine (T3) pg/dL 1.48 PG/ML Blood Urea Nitrogen 32 MG/DL Creatinine 0.86 MG/DL Random Glucose 144 MG/DL Calcium Level 8.2 MG/DL Sodium Level 135 MEQ/L Potassium Level 3.9 MEQ/L Chloride Level 102 MEQ/L Carbon Dioxide Level 25.0 MEQ/L Anion Gap 8 MEQ/L Estimat Glomerular Filtration Rate 84 ML/MIN Imaging Last [address] 04/14/17 0000 Signed Impressions: Service Date/Time: Friday, April 14, 2017 09:56 - CONCLUSION: Bilateral infiltrates and small effusions. Mild multicompartment mediastinal adenopathy. Tulio Eric MD Assessment and Plan Problem List: (1) Atrial fibrillation ICD Codes: I48.91 - Unspecified atrial fibrillation Plan: rate controlled on eliquis ok for floors today and d/c in am if rate stable (2) Coronary artery disease ICD Codes: I25.10 - Atherosclerotic heart disease of [place] coronary artery without angina pectoris Plan: stable (3) PNA (pneumonia) ICD Codes: J18.9 - PNA (pneumonia) Status: Acute Plan: IV antibiotic per primary team (4) Sepsis ICD Codes: A41.9 - Sepsis, unspecified organism Status: Acute (5) Atrial fibrillation with RVR ICD Codes: I48.91 - Unspecified atrial fibrillation Plan: RVR resolved Alejandra Pinzon MD Apr 16, 2017 07:50
[2017-04-16] MEDS: AZITHROMYCIN INJ 500 MG in SODIUM CHLOR 0.9% 250 ML INJ 250 ML IV SCH (09:27)
[2017-04-16] MEDS: DILTIAZEM-CD 120 MG CAP ER PO SCH (09:27)
[2017-04-16] MEDS: APIXABAN 5 MG TABLET PO SCH ×2 (09:28→20:23)
[2017-04-16] MEDS: ASPIRIN EC 81 MG TABEC PO SCH (09:28)
[2017-04-16] MEDS: DIGOXIN 0.125 MG TAB PO SCH (09:29)
[2017-04-16] MEDS: DOCUSATE SODIUM 50 MG/SENNA 8.6 MG TAB PO SCH ×2 (09:31→20:23)
[2017-04-16] MEDS: guaiFENesin E.R. 600 MG TAB PO SCH ×2 (09:31→20:22)
[2017-04-16] MEDS: PANTOPRAZOLE SOD 20 MG DELAYED RELEASE TAB PO SCH (09:32)
[2017-04-16] MEDS: SODIUM CHLORIDE 0.9% FLUSH 10 ML FLUSH IV FLUSH SCH ×2 (09:36→20:24)
--- NOTE | 2017-04-16 10:33 | HHI.PR ---
Subjective Remarks Patient up ambulating this morning on 3 L nasal cannula and he denied dyspnea, heart rate remained controlled. Patient is hoping he will not need to have home oxygen. Objective Vitals Vital Signs Date Time Temp Pulse Resp B/P (MAP) Pulse Ox O2 Delivery O2 Flow Rate FiO2 04/16/17 08:02 97.5 73 29 139/77 (97) 88 04/16/17 08:00 90 04/16/17 07:00 90 04/16/17 04:00 98.3 88 28 113/49 (70) 90 04/16/17 04:00 62 04/16/17 00:00 64 04/16/17 00:00 64 22 119/73 (88) 89 04/15/17 23:00 70 04/15/17 20:00 97.5 82 23 135/77 (96) 94 04/15/17 20:00 82 04/15/17 19:20 92 Nasal Cannula 2.00 04/15/17 18:04 84 28 167/86 (113) 95 04/15/17 18:00 98 26 93 04/15/17 17:00 82 28 94 04/15/17 16:00 83 04/15/17 16:00 74 28 123/68 (86) 91 04/15/17 15:00 86 47 94 04/15/17 15:00 85 04/15/17 14:00 86 41 120/68 (85) 96 04/15/17 13:00 86 30 93 04/15/17 12:00 87 04/15/17 12:00 84 31 120/61 (80) 92 04/15/17 11:00 84 28 93 I/O 04/15/17 04/15/17 04/15/17 04/16/17 04/16/17 04/16/17 06:59 14:59 22:59 06:59 14:59 22:59 Intake Total 400 ml 340 ml 900 ml 240 ml Output Total 1050 ml 200 ml 300 ml 1650 ml Balance -650 ml -200 ml 40 ml -750 ml 240 ml Intake Oral 300 ml 340 ml 800 ml 240 ml IV Total 100 ml 100 ml Output Urine Total 1050 ml 200 ml 300 ml 1650 ml # Voids 2 6 # Bowel Movements 0 0 0 Result Diagram: 04/12/17 0425 04/16/17 0415 Objective Remarks GENERAL: Well-nourished, well-developed elderly CM patient. SKIN: Warm and dry. HEAD: Normocephalic. EYES: No scleral icterus. No injection or drainage. NECK: Supple, trachea midline. No JVD or lymphadenopathy. CARDIOVASCULAR: Regular rate and rhythm without murmurs, gallops, or rubs. RESPIRATORY: Breath sounds with rhonchi in left lower lung field. Patient also appears to have mucus in the upper airway, pharynx. No accessory muscle use. GASTROINTESTINAL: Abdomen soft, non-tender, nondistended. EXTREMITIES: No cyanosis, or edema. NEUROLOGICAL: Awake, alert, and oriented x 3. Non-focal. A/P Problem List: (1) Sepsis ICD Code: A41.9 - Sepsis, unspecified organism Status: Acute (2) PNA (pneumonia) ICD Code: J18.9 - PNA (pneumonia) Status: Acute (3) Atrial fibrillation with RVR ICD Code: I48.91 - Unspecified atrial fibrillation Assessment and Plan -Bibasilar Pneumonia, community acquired, chest CT 03/15 with b/l multifocal patchy infiltrates with consolidation in left lung base and trace b/l pleural effusions. Patient has history of recurrent LLL pneumonia with bronchoscopy in the past. Wean oxygen as tolerated Check oxygen walk test today cont rocephin, zithromax -iraida regular diet and thin liquids per speech therapy swallow evaluation pulmonology following -Atrial fibrillation with RVR - rate now controlled on PO cardizem and digoxin. cont eliquis. 2d echo with preserved LVEF and mild to moderate mitral regurg. Appreciate cardiology input. - HTN - blood pressure stable. -CAD - cont asa. -RLS - cont requip -Hypothryoid - cont synthroid -DVT px - eliquis Discharge Planning Home in 1 to 2 days if continued improvement. Dena Gomez MD Apr 16, 2017 10:33
--- NOTE | 2017-04-16 19:35 | HHI.PR ---
Subjective Remarks Less SOB and cough.. Walked in [place] and Sats were >90. On Solumedrol. IV. CT chest Noted. has Mild mediastinal adenopathy and Vascular congestion Objective Vital Signs Date Time Temp Pulse Resp B/P (MAP) Pulse Ox O2 Delivery O2 Flow Rate FiO2 04/16/17 16:03 70 04/16/17 16:03 80 28 120/68 (85) 92 04/16/17 16:00 97.6 04/16/17 15:00 73 04/16/17 13:49 97.6 04/16/17 12:00 63 20 126/57 (80) 91 04/16/17 12:00 72 04/16/17 08:02 97.5 73 29 139/77 (97) 88 04/16/17 08:00 90 04/16/17 08:00 95 Nasal Cannula 2.00 04/16/17 07:00 90 04/16/17 04:00 98.3 88 28 113/49 (70) 90 04/16/17 04:00 62 04/16/17 00:00 64 04/16/17 00:00 64 22 119/73 (88) 89 04/15/17 23:00 70 04/15/17 20:00 97.5 82 23 135/77 (96) 94 04/15/17 20:00 82 I/O 04/15/17 04/15/17 04/15/17 04/16/17 04/16/17 04/16/17 07:00 15:00 23:00 07:00 15:00 23:00 Intake Total 400 ml 340 ml 900 ml 240 ml 1050 ml Output Total 1050 ml 200 ml 300 ml 1650 ml Balance -650 ml -200 ml 40 ml -750 ml 240 ml 1050 ml Intake Oral 300 ml 340 ml 800 ml 240 ml 800 ml IV Total 100 ml 100 ml 250 ml Output Urine Total 1050 ml 200 ml 300 ml 1650 ml # Voids 2 6 5 # Bowel Movements 0 0 0 1 Result Diagram: 04/12/17 0425 04/16/17 0415 Objective Remarks GENERAL: This elderly man is pale, alert and not dyspneic.. HEAD, EYES, EARS, NOSE, THROAT: Head normocephalic. The pupils are reactive and equal. Tongue is moist. Nasal mucosa clear. Throat is clear NECK: The neck is supple. No venous distention. No thyromegaly or lymphadenopathy. CHEST: Decreased excursions with occasional crackles at the lung bases . HEART: Heart sounds are irregular. S1-S2. No murmur. No S3 or gallop. ABDOMEN: Abdomen soft and protuberant. No masses. No organomegaly or tenderness. The bowel sounds are active. EXTREMITIES: Decreased peripheral pulses.1 + edema. No calf tenderness. NEUROLOGIC: Reflexes are 1+. No gross motor deficits. SKIN: No lesions are noted. Assessment and Plan Assessment and Plan IMPRESSION: 1. Basilar pneumonia with sepsis. 2. Hypotension. 3. Chronic obstructive pulmonary disease. 4. Asbestos exposure. 5. History of hypertension. 6. Hyperlipidemia. 7. Coronary artery disease. Plan : 1. Wean O2 to RA. 2. D/C Solumderol. 3. Add Prednisone 20 mg bid and taper 4. Up in chair. 5. Continue antibiotics.and D/C Zithro 6. Symbicort 160/4.5 mcg , 2 puffs bid 7. Transfer to [facility]. Nitin Magaña MD Apr 16, 2017 19:35
[2017-04-16] MEDS: predniSONE 20 MG TAB PO SCH (20:24)
[2017-04-17] VITALS (7 sets, daily range): BP systolic 100–139; BP diastolic 40–85; PULSE 60–73; RESP 18–21; TEMP 96.7–98.7; O2SAT 92–98
[2017-04-17] MEDS: cefTRIAXone INJ 1,000 MG in SODIUM CHLORIDE 0.9% INJ 100 ML IV SCH (06:00)
[2017-04-17] MEDS: LEVOTHYROXINE SODIUM 25 MCG TAB PO SCH (06:02)
[2017-04-17] MEDS: SODIUM CHLORIDE 0.9% FLUSH 10 ML FLUSH IV FLUSH SCH ×2 (08:35→20:17)
[2017-04-17] MEDS: DIGOXIN 0.125 MG TAB PO SCH (08:36)
[2017-04-17] MEDS: DOCUSATE SODIUM 50 MG/SENNA 8.6 MG TAB PO SCH ×2 (08:36→20:16)
[2017-04-17] MEDS: DILTIAZEM-CD 120 MG CAP ER PO SCH (08:36)
[2017-04-17] MEDS: predniSONE 20 MG TAB PO SCH ×2 (08:36→20:17)
[2017-04-17] MEDS: APIXABAN 5 MG TABLET PO SCH ×2 (08:36→20:16)
[2017-04-17] MEDS: PANTOPRAZOLE SOD 20 MG DELAYED RELEASE TAB PO SCH (08:36)
[2017-04-17] MEDS: ASPIRIN EC 81 MG TABEC PO SCH (08:36)
[2017-04-17] MEDS: guaiFENesin E.R. 600 MG TAB PO SCH ×2 (08:37→20:17)
--- NOTE | 2017-04-17 12:08 | HHI.PR ---
Subjective Remarks Patient states he feels fine, wants to go home. He passes oxygen walk test yesterday. He still has the chronic "rattle" in his throat Objective Vitals Vital Signs Date Time Temp Pulse Resp B/P (MAP) Pulse Ox O2 Delivery O2 Flow Rate FiO2 04/17/17 08:00 97.1 70 18 139/85 (103) 92 04/17/17 07:00 Nasal Cannula 2.00 04/17/17 04:00 98.7 67 20 125/65 (85) 93 04/17/17 02:37 Nasal Cannula 5.00 Humidified 04/17/17 00:00 97.6 65 19 100/53 (69) 92 04/16/17 23:17 Nasal Cannula 3.00 Humidified 04/16/17 20:00 98.4 78 17 112/84 (93) 94 04/16/17 20:00 Nasal Cannula 1.00 Humidified 04/16/17 20:00 80 04/16/17 19:45 94 Nasal Cannula 1.00 04/16/17 16:03 70 04/16/17 16:03 80 28 120/68 (85) 92 04/16/17 16:00 97.6 04/16/17 15:00 73 04/16/17 13:49 97.6 I/O 04/16/17 04/16/17 04/16/17 04/17/17 04/17/17 04/17/17 06:59 14:59 22:59 06:59 14:59 22:59 Intake Total 900 ml 240 ml 1050 ml 460 ml Output Total 1650 ml 650 ml Balance -750 ml 240 ml 1050 ml -190 ml Intake Oral 800 ml 240 ml 800 ml 360 ml IV Total 100 ml 250 ml 100 ml Output Urine Total 1650 ml 650 ml # Voids 6 5 # Bowel Movements 0 1 0 Result Diagram: 04/16/17 0415 Objective Remarks GENERAL: Well-nourished, well-developed elderly CM patient. SKIN: Warm and dry. HEAD: Normocephalic. EYES: No scleral icterus. No injection or drainage. NECK: Supple, trachea midline. No JVD or lymphadenopathy. CARDIOVASCULAR: Regular rate and rhythm without murmurs, gallops, or rubs. RESPIRATORY: Breath sounds with rhonchi in left lower lung field. Patient also appears to have mucus in the upper airway, pharynx. No accessory muscle use. GASTROINTESTINAL: Abdomen soft, non-tender, nondistended. EXTREMITIES: No cyanosis, or edema. NEUROLOGICAL: Awake, alert, and oriented x 3. Non-focal. A/P Problem List: (1) Sepsis ICD Code: A41.9 - Sepsis, unspecified organism Status: Acute (2) PNA (pneumonia) ICD Code: J18.9 - PNA (pneumonia) Status: Acute (3) Atrial fibrillation with RVR ICD Code: I48.91 - Unspecified atrial fibrillation Assessment and Plan -Bibasilar Pneumonia, community acquired, chest CT 03/15 with b/l multifocal patchy infiltrates with consolidation in left lung base and trace b/l pleural effusions. Patient has history of recurrent LLL pneumonia with bronchoscopy in the past. Does not require oxygen per the walk test yesterday. Status post 6 days of IV Rocephin and 5 days of Zithromax. Change to by mouth Levaquin today. Now on prednisone by mouth per pulmonology. -iraida regular diet and thin liquids per speech therapy swallow evaluation pulmonology following -Atrial fibrillation with RVR - rate now controlled on PO cardizem and digoxin. cont eliquis. 2d echo with preserved LVEF and mild to moderate mitral regurg. Appreciate cardiology input. - HTN - blood pressure stable. -CAD - cont asa. -RLS - cont requip -Hypothryoid - cont synthroid -DVT px - eliquis He has been awaiting transfer to [facility] floor for 3 days. Discharge Planning Discharge home tomorrow if remains stable. Dena Gomez MD Apr 17, 2017 12:08
[2017-04-17] MEDS: LEVOFLOXACIN 750 MG TAB PO SCH (14:45)
[2017-04-18] VITALS: BP 142/87; PULSE 70; RESP 18; TEMP 96.7; O2SAT 93
[2017-04-18] MEDS: LEVOTHYROXINE SODIUM 25 MCG TAB PO SCH (05:49)
[2017-04-18 08:00] VITALS: BP 140/89; PULSE 80; RESP 18; TEMP 97.6; O2SAT 94; O2SAT 95
[2017-04-18] MEDS: DIGOXIN 0.125 MG TAB PO SCH (09:35)
[2017-04-18] MEDS: DOCUSATE SODIUM 50 MG/SENNA 8.6 MG TAB PO SCH (09:35)
[2017-04-18] MEDS: ASPIRIN EC 81 MG TABEC PO SCH (09:35)
[2017-04-18] MEDS: DILTIAZEM-CD 120 MG CAP ER PO SCH (09:35)
[2017-04-18] MEDS: LEVOFLOXACIN 750 MG TAB PO SCH (09:35)
[2017-04-18] MEDS: guaiFENesin E.R. 600 MG TAB PO SCH (09:36)
[2017-04-18] MEDS: predniSONE 20 MG TAB PO SCH (09:36)
[2017-04-18] MEDS: APIXABAN 5 MG TABLET PO SCH (09:36)
[2017-04-18] MEDS: SODIUM CHLORIDE 0.9% FLUSH 10 ML FLUSH IV FLUSH SCH (09:36)
[2017-04-18] MEDS: PANTOPRAZOLE SOD 20 MG DELAYED RELEASE TAB PO SCH (09:36)
[2017-04-18 12:00] VITALS: BP 132/85; PULSE 75; RESP 18; TEMP 97.7; O2SAT 95
[2017-04-18] MEDS ORDERED: APIX5TAB PO (12:54)
[2017-04-18] MEDS ORDERED: guaiFENesin ER PO (12:54)
[2017-04-18] MEDS ORDERED: LEVA750T9 PO (12:54)
[2017-04-18] MEDS ORDERED: CARD120C4 PO (12:54)
[2017-04-18] MEDS ORDERED: MEDR4PAK PO (12:54)
--- NOTE | 2017-04-18 12:59 | HHI.DS ---
Discharge Summary Admission Date Apr 11, 2017 at 05:11 Discharge Date: Apr 18, 2017 Admitting Diagnosis LLL pneumonia; sepsis (1) Sepsis ICD Code: A41.9 - Sepsis, unspecified organism Status: Acute (2) PNA (pneumonia) ICD Code: J18.9 - PNA (pneumonia) Status: Acute (3) Atrial fibrillation with RVR ICD Code: I48.91 - Unspecified atrial fibrillation Procedures None Brief History - From Admission Very pleasant 86-year-old male with PMH of PNA, CAD, HTN, HLD, hypothyroidism, GERD, gout, arthritis with previous history of left lower lobe pneumonia requiring bronchoscopy presents to the emergency department by EMS transport from home for evaluation of shaking chill with fever. Says he woke up in the middle of the night with shaking chills, fever, pain all over his body. Patient has had congestive cough. He had a congested cough approximate for 1 year. Cough is somewhat worse. Says he is following with pulm Dr Magaña. Says he has been taking mucinex, nebs and did not help. Says he had PFT as OP and did not show he has COPD. Says he doens't know why he has the cough. He has a h/ o asbestos exposure at young age ~ 19 ya. Patient has been treated in the past for left sided pneumonia. Patient has had bronchoscopy, PFT and CT chest in the past. No report of cancer. His BP is noted low, received 2.5 L in the ER , MAP 65%. Patient says he feels very tired. No more chills or body aches. CBC/BMP: 04/16/17 0415 Significant Findings Laboratory Tests Test 04/16/17 04:15 Blood Urea Nitrogen 32 MG/DL (7-18) Random Glucose 144 MG/DL (74-106) Calcium Level 8.2 MG/DL (8.5-10.1) Sodium Level 135 MEQ/L (136-145) Estimat Glomerular Filtration Rate 84 ML/MIN (>89) PE at Discharge GENERAL: Well-nourished, well-developed elderly CM patient. SKIN: Warm and dry. HEAD: Normocephalic. EYES: No scleral icterus. No injection or drainage. NECK: Supple, trachea midline. No JVD or lymphadenopathy. CARDIOVASCULAR: Regular rate and rhythm without murmurs, gallops, or rubs. RESPIRATORY: Breath sounds with rhonchi in left lower lung field. Patient also appears to have mucus in the upper airway, pharynx. No accessory muscle use. GASTROINTESTINAL: Abdomen soft, non-tender, nondistended. EXTREMITIES: No cyanosis, or edema. NEUROLOGICAL: Awake, alert, and oriented x 3. Non-focal. Cognitively sharp. Hospital Course Patient was initially admitted to the ICU for close monitoring. He was treated with broad-spectrum IV antibiotics. He did require 4 L of oxygen initially. Pulmonology was consulted. He was diuresed however Kimberlee was held as his blood pressure was running low. The patient while hospitalized also developed atrial fibrillation with rapid ventricular rate which was a new diagnosis. Cardiology was consulted. He was started on digoxin and diltiazem and Eliquis. His heart rate came under good control. Respiratory status began to gradually improve. He is now on room air. Ambulating well. Oxygen walk test revealed he does not require home oxygen. The patient was transitioned to by mouth Levaquin yesterday and continues to do well. He will be discharged home today to follow up with his primary care physician within one week. He is to follow-up with his labeling associate Dr. Lee in 2 weeks. Pt Condition on Discharge: Stable Discharge Disposition: Discharge Home Discharge Time: > 30 minutes Discharge Instructions DIET: Follow Instructions for: Heart Healthy Diet Speech Therapy-Diet Recommends: Regular Activities you can perform: Regular-No Restrictions Follow up Referrals: Appointment for Follow Up - [address] LEE PCP Follow-up - 1 Week New Medications: Methylprednisolone Dosepak (Medrol Dosepak) 4 Mg Dspk 4 MG PO DIRECTED, #1 DSPK 0 Refills Per Pharmacist direction Apixaban (Eliquis) 5 Mg Tab 5 MG PO BID for prevent stroke, #60 TAB Diltiazem CD 24 HR (Cardizem CD 24 HR) 120 Mg Caper 120 MG PO DAILY for Regulate Heart Beat, #30 CAP Levofloxacin (Levaquin) 750 Mg Tablet 750 MG PO DAILY for Infection, #4 TAB [guaiFENesin ER] () 600 MG TABCR 1200 MG PO BID for expectorant, #30 Continued Medications: Allopurinol (Allopurinol) 100 Mg Tab 100 MG PO DAILY for Gout, #30 TAB 0 Refills Indomethacin (Indomethacin) 25 Mg Cap 25 MG PO TID PRN for gout, CAP 0 Refills Take with food, milk, or antacids to decrease stomach adverse effects. Isosorbide Mononitrate (Isosorbide Mononitrate) 20 Mg Tab 60 MG PO DAILY for Prevent Chest Pain, #60 TAB 0 Refills Take 2 doses 7 hours apart. Levothyroxine (Levothyroxine) 25 Mcg Tab 25 MCG PO DAILY for Thyroid, #30 TAB 0 Refills Omeprazole (Omeprazole) 20 Mg Tab 20 MG PO DAILY, #30 TAB 0 Refills Pravastatin (Pravachol) 20 Mg Tab 20 MG PO HS, #60 TAB 0 Refills Ropinirole (Requip) 0.25 Mg Tab 0.25 MG PO HS, #1 TAB 0 Refills Discontinued Medications: Metoprolol Tartrate (Metoprolol Tartrate) 25 Mg Tab 25 MG PO HS, #60 TAB 0 Refills Dena Gomez MD Apr 18, 2017 12:59
== END 2017-04-18 14:50 | disposition home or self-care (01) | DRG 871 ==
LOC: PHED 03:08 → PHEDA 05:11 → PHICU 08:20 → PH3A 04-17 13:42
PROVIDERS: ADMIT Family Medicine; ATTEND Family Medicine
DX: A41.9 Sepsis, unspecified organism (principal); J18.9 Pneumonia, unspecified organism; J44.0 Chronic obstructive pulmonary disease with (acute) lower respiratory infection; I48.91 Unspecified atrial fibrillation; I25.10 Atherosclerotic heart disease of native coronary artery without angina pectoris; I10 Essential (primary) hypertension; E78.5 Hyperlipidemia, unspecified; M10.9 Gout, unspecified; K21.9 Gastro-esophageal reflux disease without esophagitis; H91.90 Unspecified hearing loss, unspecified ear; E03.9 Hypothyroidism, unspecified; G25.81 Restless legs syndrome; R65.20 Severe sepsis without septic shock; Z87.891 Personal history of nicotine dependence; Z95.5 Presence of coronary angioplasty implant and graft; Z95.1 Presence of aortocoronary bypass graft
CPT/HCPCS: 71010; 71250; 80048; 80053; 80162; 81001; 83605; 83690; 83735; 84439; 84443; 84481; 84484; 85025; 87040; 87070; 87205; 87804; 93005; 93306; 94620; 94640; 94664; 96365; 96367; J0456; J0696; J1650; J1940; J2543; J2920; J7030; J7040; J7050; J7512; J7608

== ENCOUNTER 2017-04-28 11:43 | Emergency (ER) | payer MEDICARE, OTHER ==
[~2017-04-28] VITALS: Ht 180.3 cm; Wt 76.0 kg
[~2017-04-28 11:43] MED LIST changes: +ALLO100T PO; -ALLO300T2 PO; +APIX5TAB PO; -ASPI325T PO; +CARD120C4 PO; +INDO25CA PO; +LEVA750T9 PO; +MEDR4PAK PO; -METO25TA3 PO; +guaiFENesin ER PO
[2017-04-28 11:49] VITALS: BP 128/64; PULSE 96; RESP 16; TEMP 97.6; O2SAT 94
[2017-04-28 13:23] VITALS: BP 117/64; PULSE 90; RESP 18; O2SAT 96
[2017-04-28] MEDS ORDERED: SODIUM CHLOR 0.9% 1000 ML INJ 1,000 ML IV ONE (13:23)
--- NOTE | 2017-04-28 13:29 | PD ---
HPI Chief Complaint: generalized weakness Time Seen by Provider: 13:10 Travel History International Travel<30 days: No Contact w/Intl Traveler<30days: No Traveled to known affect area: No History of Present Illness HPI 86yo M with PMH of CAD, HTN, HLD, hypothyroidism, GERD presents to the ED with c /o generalized weakness since yesterday. States he had nausea, NBNB vomiting, nonbloody diarrhea yesterday. Said he has been feeling weak since discharge. Pt feels room spinning when he moves his head. Denies any fever, chest pain, sob, abdominal pain, focal weakness or numbness. Said he has chronic cough and does not feel more sob than normal. Pt was admitted 04/11/17-04/18/17 for left lower lobe pneumonia and had antibiotics. Pt developed afib RVR which was new and evaluated by cardiology and started on digoxin, diltiazem and eliquis. 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 Magaña. [facility] Past Medical History Hx Anticoagulant Therapy: Yes Autoimmune Disease: No Anxiety: No Depression: No Cancer: Yes (skin cancer removed left forearm) Cardiac Catheterization: Yes (1995--ANGIOPLASTY--ONE STENT) Cardiovascular Problems: Yes (a-fib, CA, stent placement ,5 vessels bypass, ) High Cholesterol: Yes Chemotherapy: No Chest Pain: Yes COPD: Yes Coronary Artery Disease: Yes Diabetes: No Diminished Hearing: Yes (HEARING AIDS) Gastrointestinal Disorders: Yes (REFLUX) GERD: Yes Gout: Yes Genitourinary: No Hepatitis: No Hiatal Hernia: Yes Hypertension: Yes Immune Disorder: No Musculoskeletal: Yes (OA) Neurologic: No Psychiatric: No Reproductive: No Respiratory: Yes (CONGESTION, SLEEP APNEA) Radiation Therapy: No Thyroid Disease: Yes (hyper thyroid) Tetanus Vaccination: Unknown Influenza Vaccination: Yes Past Surgical History Abdominal Surgery: Yes (gall bladder) AICD: No Cardiac Surgery: Yes (5 artery by pass . stent) Cholecystectomy: Yes (2001) Coronary Artery Bypass Graft: Yes (1986 X 5 VESSLES) Ear Surgery: No Endocrine Surgery: No Eye Surgery: Yes (BOTH EYES CATARACT) Genitourinary Surgery: No Gynecologic Surgery: No Joint Replacement: No Oral Surgery: Yes (tonsillectomy) Pacemaker: No Thoracic Surgery: No Tonsillectomy: Yes (1941) Other Surgery: Yes Social History Alcohol Use: Yes ("ONCE A MONTH COUPLE OF DRINKS"BEER, MIX DRINKS OR WINE) Tobacco Use: No (quit 40 eyars ago) Substance Use: No Allergies-Medications (Allergen,Severity, Reaction): Coded Allergies: peanut oil (Verified Allergy, Severe, 04/28/17) peanut (Verified Allergy, Intermediate, Diarrhea, 04/28/17) Reported Meds & Prescriptions Reported Meds & Active Scripts Active Eliquis (Apixaban) 5 Mg Tab 5 Mg PO BID [guaiFENesin ER] 600 MG Tabcr 1,200 Mg PO BID Cardizem CD 24 HR (Diltiazem CD 24 HR) 120 Mg Caper 120 Mg PO DAILY Reported Indomethacin 25 Mg Cap 25 Mg PO TID PRN Take with food, milk, or antacids to decrease stomach adverse effects. Allopurinol 100 Mg Tab 100 Mg PO DAILY Isosorbide Mononitrate 20 Mg Tab 60 Mg PO DAILY Take 2 doses 7 hours apart. Levothyroxine (Levothyroxine Sodium) 25 Mcg Tab 25 Mcg PO DAILY Omeprazole 20 Mg Tab 20 Mg PO DAILY Pravachol (Pravastatin) 20 Mg Tab 20 Mg PO HS Requip (Ropinirole HCl) 0.25 Mg Tab 0.25 Mg PO HS Review of Systems Except as stated in HPI: all other systems reviewed are Neg Physical Exam Narrative GENERAL: 86yo M in mild distress. SKIN: Focused skin assessment warm/dry. HEAD: Atraumatic. Normocephalic. EYES: Pupils equal and round. No scleral icterus. No injection or drainage. ENT: No nasal bleeding or discharge. Mucous membranes pink and moist. NECK: Trachea midline. No JVD. CARDIOVASCULAR: Regular rate and rhythm. No murmur appreciated. RESPIRATORY: No accessory muscle use. Coarse breath sounds bilaterally. GASTROINTESTINAL: Abdomen soft, non-tender, nondistended. MUSCULOSKELETAL: No obvious deformities. No clubbing. No cyanosis. No edema. NEUROLOGICAL: Awake and alert. No obvious cranial nerve deficits. Motor grossly within normal limits. Normal speech. PSYCHIATRIC: Appropriate mood and affect; insight and judgment normal. Data Data Last Documented VS Vital Signs Date Time Temp Pulse Resp B/P (MAP) Pulse Ox O2 Delivery O2 Flow Rate FiO2 04/28/17 15:33 79 119/65 (83) 78 134/67 (89) 95 109/61 (77) 04/28/17 14:02 94 Room Air 04/28/17 13:23 18 04/28/17 11:49 97.6 Orders Orders Electrocardiogram (04/28/17 13:23) Basic Metabolic Panel (Bmp) (04/28/17 13:23) Complete Blood Count With Diff (04/28/17 13:23) Magnesium (Mg) (04/28/17 13:) Troponin I (04/28/17:) Act Partial Throm Time (Ptt) (04/28/17:23) Prothrombin Time / Inr (Pt) (04/28/17 13:23) Urinalysis - C+S If Indicated (04/28/17 13:23) Chest, Single Ap (04/28/17 13:) Ct Brain W/O Iv Contrast(Rout) (04/28/17:) Ecg Monitoring (04/28/17:23) Iv Access Insert/Monitor (04/28/17:) Oximetry (04/28/17 13:) Ondansetron Inj (Zofran Inj) (04/28/17 13:30) Sodium Chloride 0.9% Flush (Ns Flush) (04/28/17 13:30) Sodium Chlor 0.9% 1000 Ml Inj (Ns 1000 M (04/28/17 13:23) Digoxin (04/28/17 13:23) Orthostatic Vital Signs (04/28/17 15:21) Labs Laboratory Tests Test 04/28/17 14:00 04/28/17 15:31 White Blood Count 10.3 TH/MM3 Red Blood Count 4.84 MIL/MM3 Hemoglobin 13.1 GM/DL Hematocrit 41.1 % Mean Corpuscular Volume 85.0 FL Mean Corpuscular Hemoglobin 27.0 PG Mean Corpuscular Hemoglobin Concent 31.8 % Red Cell Distribution Width 14.7 % Platelet Count 206 TH/MM3 Mean Platelet Volume 8.1 FL Neutrophils (%) (Auto) 80.5 % Lymphocytes (%) (Auto) 9.5 % Monocytes (%) (Auto) 9.3 % Eosinophils (%) (Auto) 0.4 % Basophils (%) (Auto) 0.3 % Neutrophils # (Auto) 8.3 TH/MM3 Lymphocytes # (Auto) 1.0 TH/MM3 Monocytes # (Auto) 1.0 TH/MM3 Eosinophils # (Auto) 0.0 TH/MM3 Basophils # (Auto) 0.0 TH/MM3 CBC Comment DIFF FINAL Differential Comment Prothrombin Time 11.5 SEC Prothromb Time International Ratio 1.0 RATIO Activated Partial Thromboplast Time 34.3 SEC Blood Urea Nitrogen 19 MG/DL Creatinine 1.10 MG/DL Random Glucose 109 MG/DL Calcium Level 8.6 MG/DL Magnesium Level 2.3 MG/DL Sodium Level 134 MEQ/L Potassium Level 4.2 MEQ/L Chloride Level 99 MEQ/L Carbon Dioxide Level 23.3 MEQ/L Anion Gap 12 MEQ/L Estimat Glomerular Filtration Rate 63 ML/MIN Troponin I 0.02 NG/ML Digoxin Level 0.3 NG/ML Urine Collection Type CLEAN CATCH Urine Color YELLOW Urine Turbidity SLIGHT Urine pH 6.5 Urine Specific [place] 1.023 Urine Protein TRACE mg/dL Urine Glucose (UA) NEG mg/dL Urine Ketones 15 mg/dL Urine Occult Blood TRACE Urine Nitrite NEG Urine Bilirubin NEG Urine Leukocyte Esterase NEG Urine RBC 4-9 /hpf Urine Squamous Epithelial Cells 0-5 /hpf Urine Amorphous Sediment FEW Microscopic Urinalysis Comment CULT NOT INDICATED Urine Collection Time 1531 [facility] Medical Decision Making Medical Screen Exam Complete: Yes Emergency Medical Condition: Yes Interpretation(s) EKG: NSR 79bpm. TWI aVL, I, V2. LAE. TWI similar to EKG from 09/2014. Differential Diagnosis Dehydration vs. electrolyte abnormality vs. UTI Narrative Course 86yo M with generalized weakness today after vomiting and diarrhea yesterday. Labs reviewed, no leukocytosis. Troponin negative. BUN 19. Digoxin level low. UA showed no leukocyte. Culture not indicated. CXR showed left lower lobe consolidation is improved somewhat from prior study. Tiny left effusion suspected. Pt is not sob. CT brain negative. Pt given NS IVF and zofran. Pt reevaluated at bedside and feels much better. Denies any nausea and wants to go home. Family is at bedside and has walker with them for him. Return precautions given. Diagnosis Primary Impression: Generalized weakness Patient Instructions: General Instructions Departure Forms: Tests/Procedures Additional Instructions: Please follow up with your primary care physician in 2-3 days. Please follow up with Dr. Lee at your appointment time. Return to the ED if symptoms worsen. Med/Other Pt SpecificInfo: No Change to Meds Disposition: 01 DISCHARGE HOME Condition: Stable Li,Zee DO Apr 28, 2017 13:29
[2017-04-28] MEDS ORDERED: ONDANSETRON HCL 4 MG/2 ML VIAL IVP ONE (13:30)
[2017-04-28] MEDS ORDERED: SODIUM CHLORIDE 0.9% FLUSH 10 ML FLUSH IVF PRN (13:30)
[2017-04-28 14:02] VITALS: O2SAT 94
[2017-04-28 14:04] LABS: AUTOMATED NEUTROPHIL # 8.3 TH/MM3 (1.8-7.7); BASOPHIL % 0.3 % (0.0-2.0); EOSINOPHIL % 0.4 % (0.0-4.0); HEMATOCRIT 41.1 % (39.0-51.0); HEMO FLAGS DIFF FINAL; LYMPH % 9.5 % (9.0-44.0); MEAN CORPUSCULAR HGB CONC 31.8 % (32.0-36.0); MONO % 9.3 % (0.0-8.0); NEUT % 80.5 % (16.0-70.0); PLATELET COUNT 206 TH/MM3 (150-450); RED BLOOD COUNT 4.84 MIL/MM3 (4.50-5.90); RED CELL DISTRIBUTION WIDTH 14.7 % (11.6-17.2); WHITE BLOOD COUNT 10.3 TH/MM3 (4.0-11.0)
--- NOTE | 2017-04-28 14:05 | RADRPT ---
EXAM DATE/TIME: 04/28/2017 13:29 [facility] COMPARISON: CHEST SINGLE AP, April 11, 2017, 3:32. CT THORAX W/O CONTRAST, April 14, 2017, 9:56. CHEST SING LE AP, April 12, 2017, 5:21. INDICATIONS : Cough MEDICAL HISTORY : Hypertension. Hypercholesterolemia. Myocardial infarction. SURGICAL HISTORY : CABG. Cardiac catherization ENCOUNTER: Initial ACUITY: 1 day PAIN SCORE: 0/10 LOCATION: Bilateral chest FINDINGS: A single portable frontal view of the chest shows an area of consolidation involving the left lung ba se. This is less pronounced than on the prior studies. A suspected tiny left effusion. Right lung is clear. Heart taper limits of normal in terms of size. Median sternotomy wires. CONCLUSION: Left lower lobe consolidation is improved somewhat from the prior study. Tiny left effusion suspected . Regan Del Angel Jr., MD on April 28, 2017 at 13:52 Board Certified Radiologist. This report was verified electronically.
--- NOTE | 2017-04-28 14:05 | RADRPT ---
EXAM DATE/TIME: 04/28/2017 13:35 [facility] COMPARISON: CT BRAIN W/O CONTRAST, May 23, 2013, 13:16. INDICATIONS : Dizziness. General weakness. RADIATION DOSE: 65.31 CTDIvol (mGy) MEDICAL HISTORY : Chronic obstructive pulmonary disease. Myocardial infarction. Hypertension. SURGICAL HISTORY : CABG Cholecystectomy. ENCOUNTER: Initial ACUITY: 1 day PAIN SCALE: 0/10 LOCATION: cranial TECHNIQUE: Multiple contiguous axial images were obtained of the head. Using automated exposure control and adj ustment of the mA and/or kV according to patient size, radiation dose was kept as low as reasonably a chievable to obtain optimal diagnostic quality images. DICOM format image data is available electro nically for review and comparison. FINDINGS: CEREBRUM: There is mild generalized atrophy. Ventricles are normal in size. No evidence of midline shift, mass lesion, hemorrhage or acute infarction. No extra-axial fluid collections are seen. There is severe calcification of the intracranial internal carotid arteries. POSTERIOR FOSSA: The cerebellum and brainstem demonstrate no acute finding. The 4th ventricle is midline. The cerebe llopontine angle is unremarkable. EXTRACRANIAL: Visualized sinuses are clear. There has been prior sinus surgery. SKULL: The calvaria is intact. No evidence of skull fracture. CONCLUSION: No acute intracranial abnormality is identified. Tulio Paulson MD on April 28, 2017 at 13:45 Board Certified Radiologist. This report was verified electronically.
[2017-04-28 14:14] LABS: POTASSIUM 4.2 MEQ/L (3.5-5.1)
[2017-04-28 14:18] LABS: BICARBONATE 23.3 MEQ/L (21.0-32.0); MAGNESIUM 2.3 MG/DL (1.5-2.5)
[2017-04-28 14:20] LABS: APTT (PATIENT) 34.3 SEC (24.3-30.1); PROTHROMBIN TIME - PATIENT 11.5 SEC (9.8-11.6)
[2017-04-28 14:36] LABS: DIGOXIN 0.3 NG/ML (0.8-2.0)
[2017-04-28 15:33] VITALS: BP_SYST 109; BP_SYST 119; BP_SYST 134; BP_DIAS 61; BP_DIAS 65; BP_DIAS 67
[2017-04-28 15:35] LABS: GLUCOSE,URINE NEG (NEG); KETONE, URINE 15 mg/dL (NEG); NITRITE,URINE NEG (NEG); PH, URINE 6.5 (5.0-8.5)
[2017-04-28 15:38] LABS: BLOOD, URINE TRACE (NEG)
[2017-04-28 15:39] LABS: METHOD OF COLLECTION CLEAN CATCH; URINE COLOR YELLOW (YELLW/STRAW)
[2017-04-28 15:40] LABS: COMMENT (UR) CULT NOT INDICATED; CULTURE IF INDICATED CULT NOT INDICATED; SQUAMOUS EPITHELIAL CELL URINE 0-5 /hpf (0-5)
[2017-04-28 16:41] VITALS: BP 109/71
--- NOTE | 2017-04-29 13:32 | EKG ---
Date Performed: 04/28/2017 Time Performed: 14:05:49 PTAGE: 86 years EKG: Sinus tachycardia with first degree AV block Nonspecific ST-T wave changes Left bundle bran ch block no longer present from the prior tracing ABNORMAL ECG PREVIOUS TRACING : 04/14/2017 04.26 Atrial fibrillation no longer present from the old tracing. DOCTOR: Henrik Boudreaux Interpretating Date/Time 04/29/2017 13:31:22
== END 2017-04-28 16:44 | disposition home or self-care (01) ==
LOC: PHED 11:43
DX: R53.1 Weakness (principal); R11.2 Nausea with vomiting, unspecified; R19.7 Diarrhea, unspecified; I48.91 Unspecified atrial fibrillation; I25.10 Atherosclerotic heart disease of native coronary artery without angina pectoris; I10 Essential (primary) hypertension; Z79.01 Long term (current) use of anticoagulants; Z87.891 Personal history of nicotine dependence
CPT/HCPCS: 70450; 71010; 80048; 80162; 81001; 83735; 84484; 85025; 85610; 85730; 93005; 96361; 96374; 99285; J2405; J7030

== ENCOUNTER 2017-05-05 16:03 | Emergency (ER) | payer OTHER ==
[~2017-05-05] VITALS: Ht 180.3 cm; Wt 77.0 kg
[~2017-05-05 16:03] MED LIST changes: -LEVA750T9 PO; -MEDR4PAK PO; -OMEP20TA PO; +OMEP20TA93 PO
[2017-05-05 16:22] VITALS: BP 121/73; PULSE 90; RESP 18; TEMP 98.5; O2SAT 96
--- NOTE | 2017-05-05 17:56 | PD ---
HPI Chief Complaint: Edema Time Seen by Provider: 17:27 Travel History International Travel<30 days: No Contact w/Intl Traveler<30days: No Traveled to known affect area: No History of Present Illness HPI 86-year-old male complains of left leg discoloration and swelling. Patient states that he started having left calf pain for the past 2 weeks. Patient started having left lower extremity ecchymosis and swelling for the past 2 weeks. Patient denies any injury. Patient has history of CAD status post CABG and on Eliquis. Patient has history of hiatal hernia, hearing impaired, osteoarthritis, GERD, hyperlipidemia, COPD, hypertension, hyperthyroidism and sleep apnea. Patient denies any recent injury to left leg. Patient has Doppler study bilateral lower extremity today at [facility]. PFS Past Medical History Hx Anticoagulant Therapy: Yes Arthritis: Yes (OA) Autoimmune Disease: No Anxiety: No Depression: No Cancer: Yes (skin cancer removed left forearm) Cardiac Catheterization: Yes (1995--ANGIOPLASTY--ONE STENT) Cardiovascular Problems: Yes High Cholesterol: Yes Chemotherapy: No Chest Pain: Yes COPD: Yes Coronary Artery Disease: Yes Diabetes: No Diminished Hearing: Yes (HEARING AIDS) Gastrointestinal Disorders: Yes (REFLUX) GERD: Yes Gout: Yes Genitourinary: No Hepatitis: No Hiatal Hernia: Yes Hypertension: Yes Immune Disorder: No Musculoskeletal: Yes (OA) Neurologic: No Psychiatric: No Reproductive: No Respiratory: Yes (CONGESTION, SLEEP APNEA) Radiation Therapy: No Sleep Apnea: Yes Thyroid Disease: Yes (hyper thyroid) Past Surgical History Abdominal Surgery: Yes (gall bladder) AICD: No Cardiac Surgery: Yes (5 artery by pass . stent) Cholecystectomy: Yes (2001) Coronary Artery Bypass Graft: Yes (1986 X 5 VESSLES) Ear Surgery: No Endocrine Surgery: No Eye Surgery: Yes (BOTH EYES CATARACT) Genitourinary Surgery: No Gynecologic Surgery: No Joint Replacement: No Oral Surgery: Yes (tonsillectomy) Pacemaker: No Thoracic Surgery: No Tonsillectomy: Yes (1941) Other Surgery: Yes Social History Alcohol Use: Yes ("ONCE A MONTH COUPLE OF DRINKS"BEER, MIX DRINKS OR WINE) Tobacco Use: No (quit 40 eyars ago) Substance Use: No Allergies-Medications (Allergen,Severity, Reaction): Coded Allergies: peanut oil (Verified Allergy, Severe, 05/05/17) peanut (Verified Allergy, Intermediate, Diarrhea, 05/05/17) Reported Meds & Prescriptions Reported Meds & Active Scripts Active Eliquis (Apixaban) 5 Mg Tab 5 Mg PO BID Cardizem CD 24 HR (Diltiazem CD 24 HR) 120 Mg Caper 120 Mg PO DAILY Reported Indomethacin 25 Mg Cap 25 Mg PO TID PRN Take with food, milk, or antacids to decrease stomach adverse effects. Allopurinol 100 Mg Tab 100 Mg PO DAILY Isosorbide Mononitrate 20 Mg Tab 60 Mg PO DAILY Take 2 doses 7 hours apart. Levothyroxine (Levothyroxine Sodium) 25 Mcg Tab 25 Mcg PO DAILY Omeprazole 20 Mg Tab 20 Mg PO DAILY Pravachol (Pravastatin) 20 Mg Tab 20 Mg PO HS Requip (Ropinirole HCl) 0.25 Mg Tab 0.25 Mg PO HS Review of Systems General / Constitutional: No: Fever Eyes: No: Visual changes HENT: No: Headaches Cardiovascular: No: Chest Pain or Discomfort Respiratory: No: Shortness of Breath Gastrointestinal: No: Abdominal Pain Genitourinary: No: Dysuria Musculoskeletal: Positive: Edema, Pain Skin: No Rash Neurologic: No: Weakness Psychiatric: No: Depression Endocrine: No: Polydipsia Hematologic/Lymphatic: No: Easy Bruising Physical Exam Narrative GENERAL: Well-nourished, well-developed patient. SKIN: Focused skin assessment warm/dry. HEAD: Normocephalic. EYES: No scleral icterus. No injection or drainage. NECK: Supple, trachea midline. No JVD or lymphadenopathy. CARDIOVASCULAR: Regular rate and rhythm without murmurs, gallops, or rubs. RESPIRATORY: Breath sounds equal bilaterally. No accessory muscle use. GASTROINTESTINAL: Abdomen soft, non-tender, nondistended. MUSCULOSKELETAL: No cyanosis, or edema. BACK: Nontender without obvious deformity. No CVA tenderness. Patient has mild tenderness on palpation left calf area. Patient has ecchymosis and edema left ankle and dorsal aspect the left foot. No redness no heat noted. Sensorimotor function distally intact. No tenderness on palpation of the left ankle or the left foot. Data Data Last Documented VS Vital Signs Date Time Temp Pulse Resp B/P (MAP) Pulse Ox O2 Delivery O2 Flow Rate FiO2 05/05/17 16:22 98.5 90 18 121/73 (89) 96 MDM Medical Decision Making Medical Screen Exam Complete: Yes Emergency Medical Condition: Yes Differential Diagnosis Differential diagnosis including muscular tear with resulting ecchymosis and edema. Rule out DVT. Rule out cellulitis. Narrative Course 86-year-old male with left calf pain and ecchymosis of left ankle left foot. Doppler study lower extremity bilaterally today done at [place] [facility] shows small area of peripheral non occlusive thrombus seen in the inferior left superficial femoral vein. The appearance suggests of chronic thrombus. Diagnosis Primary Impression: Traumatic ecchymosis of left lower leg Qualified Codes: S80.12XA - Contusion of left lower leg, initial encounter Patient Instructions: General Instructions Additional Instructions: Continue all medications. Left foot elevated. Follow-up with personal physician. Return if worse. Med/Other Pt SpecificInfo: No Change to Meds Disposition: 01 DISCHARGE HOME Condition: Stable Taurus Hugo MD May 05, 2017 17:56
== END 2017-05-05 18:32 | disposition home or self-care (01) ==
LOC: PHED 16:03
DX: S80.12XA Contusion of left lower leg, initial encounter (principal); M79.662 Pain in left lower leg; J44.9 Chronic obstructive pulmonary disease, unspecified; I10 Essential (primary) hypertension; X58.XXXA Exposure to other specified factors, initial encounter; Z79.01 Long term (current) use of anticoagulants
CPT/HCPCS: 99284

== ENCOUNTER 2017-12-02 02:25 | Inpatient (IN) | payer OTHER, MEDICARE ==
[2017-12-02] VITALS (24 sets, daily range): BP systolic 102–135; BP diastolic 53–70; PULSE 70–102; RESP 14–18; TEMP 98.8; O2SAT 92–98
[~2017-12-02] VITALS: Ht 180.3 cm; Wt 76.3 kg
[~2017-12-02 02:25] MED LIST changes: -guaiFENesin ER PO
--- NOTE | 2017-12-02 02:35 | PD ---
HPI Chief Complaint: Back pain Time Seen by Provider: 02:35 Travel History International Travel<30 days: No Contact w/Intl Traveler<30days: No Traveled to known affect area: No History of Present Illness HPI 87-year-old male came to the emergency room with history of posterior chest pain bilaterally at the mid back level. Patient says this is been going on for past 3 days. Tonight he was unable to take it anymore and decided to come to the emergency room and be evaluated. He was concerned if this had anything to do with his heart since he does have coronary artery disease history and 5 vessel bypass in the 80s. He had a stent put in 1994. His night shift is Dr. Lee. Patient says the pain is worse upon taking deep breath. No relationship to postural changes. The pain is constantly there. He has never had this pain in the past prior to these 3 days. Vital signs were stable. He is here with his . Currently he rates the pain 6 out of 10. No history of cough or fever. No history of nausea vomiting. No previous history of DVT or PE. The pain is described like a bandlike type sensation. Radiation is to both sides of the back. [facility] Past Medical History Narrative Medical List of his past medical, surgical, social and family history is reviewed from the nursing note. Hx Anticoagulant Therapy: Yes Arthritis: Yes (OA) Autoimmune Disease: No Anxiety: No Depression: No Cancer: Yes (skin cancer removed left forearm) Cardiac Catheterization: Yes (1995--ANGIOPLASTY--ONE STENT) Cardiovascular Problems: Yes High Cholesterol: Yes Chemotherapy: No Chest Pain: Yes COPD: Yes Coronary Artery Disease: Yes Diabetes: No Diminished Hearing: Yes (HEARING AIDS) Gastrointestinal Disorders: Yes (REFLUX) GERD: Yes Gout: Yes Genitourinary: No Hepatitis: No Hiatal Hernia: Yes Hypertension: Yes Immune Disorder: No Musculoskeletal: Yes (OA) Neurologic: No Psychiatric: No Reproductive: No Respiratory: Yes (CONGESTION, SLEEP APNEA) Radiation Therapy: No Sleep Apnea: Yes Thyroid Disease: Yes (hyper thyroid) Past Surgical History Abdominal Surgery: Yes (gall bladder) AICD: No Cardiac Surgery: Yes (5 artery by pass . stent) Cholecystectomy: Yes (2001) Coronary Artery Bypass Graft: Yes (1986 X 5 VESSLES) Ear Surgery: No Endocrine Surgery: No Eye Surgery: Yes (BOTH EYES CATARACT) Genitourinary Surgery: No Gynecologic Surgery: No Joint Replacement: No Oral Surgery: Yes (tonsillectomy) Pacemaker: No Thoracic Surgery: No Tonsillectomy: Yes (1941) Other Surgery: Yes Social History Alcohol Use: Yes ("ONCE A MONTH COUPLE OF DRINKS"BEER, MIX DRINKS OR WINE) Tobacco Use: No (quit 40 eyars ago) Substance Use: No Allergies-Medications (Allergen,Severity, Reaction): Coded Allergies: peanut oil (Verified Allergy, Severe, 12/02/17) peanut (Verified Allergy, Intermediate, Diarrhea, 12/02/17) Comments List of his allergies reviewed from the nursing note. Reported Meds & Prescriptions Reported Meds & Active Scripts Active Cardizem CD 24 HR (Diltiazem CD 24 HR) 120 Mg Caper 120 Mg PO DAILY Reported Aspirin 81 Mg Chew 81 Mg CHEW BID Indomethacin 25 Mg Cap 25 Mg PO TID PRN Take with food, milk, or antacids to decrease stomach adverse effects. Allopurinol 100 Mg Tab 100 Mg PO DAILY Isosorbide Mononitrate 20 Mg Tab 60 Mg PO DAILY Take 2 doses 7 hours apart. Levothyroxine (Levothyroxine Sodium) 25 Mcg Tab 25 Mcg PO DAILY Omeprazole 20 Mg Tab 20 Mg PO DAILY Pravachol (Pravastatin) 20 Mg Tab 20 Mg PO HS Requip (Ropinirole HCl) 0.25 Mg Tab 0.25 Mg PO HS Narrative Medication List of his home medications reviewed from the nursing note. Review of Systems Except as stated in HPI: all other systems reviewed are Neg Musculoskeletal: Positive: Pain Physical Exam Narrative GENERAL: Awake, alert, elderly, frail, mild distress SKIN: Focused skin assessment warm/dry. HEAD: Atraumatic. Normocephalic. EYES: Pupils equal and round. No scleral icterus. No injection or drainage. ENT: No nasal bleeding or discharge. Mucous membranes pink and moist. NECK: Trachea midline. No JVD. CARDIOVASCULAR: Regular rate and rhythm. No murmur appreciated. RESPIRATORY: No accessory muscle use. Clear to auscultation. Breath sounds equal bilaterally. GASTROINTESTINAL: Abdomen soft, non-tender, nondistended. Hepatic and splenic margins not palpable. MUSCULOSKELETAL: No obvious deformities. No clubbing. No cyanosis. No edema. No spinal tenderness or point tenderness NEUROLOGICAL: Awake and alert. No obvious cranial nerve deficits. Motor grossly within normal limits. Normal speech. PSYCHIATRIC: Appropriate mood and affect; insight and judgment normal. Data Data Last Documented VS Vital Signs Date Time Temp Pulse Resp B/P (MAP) Pulse Ox O2 Delivery O2 Flow Rate FiO2 12/02/17 05:30 80 16 104/56 (72) 93 Room Air 12/02/17 02:46 98.8 Orders Orders Electrocardiogram (12/02/17 02:53) Basic Metabolic Panel (Bmp) (12/02/17 02:53) Complete Blood Count With Diff (12/02/17 02:53) Magnesium (Mg) (12/02/17 02:53) Prothrombin Time / Inr (Pt) (12/02/17 02:53) Troponin I (12/02/17 02:53) Chest, Single Ap (12/02/17 02:53) Ecg Monitoring (12/02/17 02:53) Bilateral Bp Monitoring (12/02/17 02:53) Iv Access Insert/Monitor (12/02/17 02:53) Oximetry (12/02/17 02:53) Oxygen Administration (12/02/17 02:53) Morphine Inj (Morphine Inj) (12/02/17 03:00) Sodium Chloride 0.9% Flush (Ns Flush) (12/02/17 03:00) Urinalysis - C+S If Indicated (12/02/17 02:53) Ketorolac Inj (Toradol Inj) (12/02/17 03:00) Cta Thor Abd Aorta W Iv C W3d (12/02/17 ) Iohexol 350 Inj (Omnipaque 350 Inj) (12/02/17 04:21) Ceftriaxone Inj (Rocephin Inj) (12/02/17 05:45) Azithromycin Inj (Zithromax Inj) (12/02/17 05:45) Blood Culture (12/02/17 05:34) Admit To Inpatient (12/02/17 ) Vital Signs (Adult) Q4H (12/02/17 05:44) Critical Care Specialist / Telemetry .CONTINUOUS (12/02/17 05:44) Diet Heart Healthy (12/02/17 Breakfast) Sodium Chloride 0.9% Flush (Ns Flush) (12/02/17 05:45) Sodium Chloride 0.9% Flush (Ns Flush) (12/02/17 09:00) Acetaminophen (Tylenol) (12/02/17 05:45) Troponin I (12/02/17 05:44) Troponin I (12/02/17 11:44) Resp Oxygen Bin C Titrat 1-4 L (12/02/17 ) Scd Bilateral/Knee High ESEQUIEL.BID (12/02/17 05:44) Naloxone Inj (Narcan Inj) (12/02/17 05:45) Magnesium Hydroxide Liq (Milk Of Magnesi (12/02/17 05:45) Sennosides (Senokot) (12/02/17 05:45) Bisacodyl Supp (Dulcolax Supp) (12/02/17 05:45) Lactulose Liq (Lactulose Liq) (12/02/17 05:45) Inpatient Certification (12/02/17 ) Consult Vascular Surgery (12/02/17 ) Levofloxacin (Levaquin) (12/03/17 09:00) Admit Order (Ed Use Only) (12/02/17 05:50) Labs Laboratory Tests Test 12/02/17 03:05 White Blood Count 10.1 TH/MM3 Red Blood Count 4.57 MIL/MM3 Hemoglobin 12.6 GM/DL Hematocrit 38.0 % Mean Corpuscular Volume 83.0 FL Mean Corpuscular Hemoglobin 27.6 PG Mean Corpuscular Hemoglobin Concent 33.3 % Red Cell Distribution Width 14.6 % Platelet Count 211 TH/MM3 Mean Platelet Volume 9.0 FL Neutrophils (%) (Auto) 76.8 % Lymphocytes (%) (Auto) 14.2 % Monocytes (%) (Auto) 7.3 % Eosinophils (%) (Auto) 1.4 % Basophils (%) (Auto) 0.3 % Neutrophils # (Auto) 7.9 TH/MM3 Lymphocytes # (Auto) 1.4 TH/MM3 Monocytes # (Auto) 0.7 TH/MM3 Eosinophils # (Auto) 0.1 TH/MM3 Basophils # (Auto) 0.0 TH/MM3 CBC Comment DIFF FINAL Differential Comment Prothrombin Time 10.3 SEC Prothromb Time International Ratio 1.0 RATIO Urine Color YELLOW Urine Turbidity CLEAR Urine pH 5.0 Urine Specific [place] GREATER/EQUAL 1.030 Urine Protein NEG mg/dL Urine Glucose (UA) NEG mg/dL Urine Ketones NEG mg/dL Urine Occult Blood TRACE Urine Nitrite NEG Urine Bilirubin NEG Urine Urobilinogen 0.2 MG/DL Urine Leukocyte Esterase NEG Urine RBC 0-3 /hpf Urine WBC 0-2 /hpf Urine Squamous Epithelial Cells 0-5 /hpf Urine Mucus MOD /lpf Microscopic Urinalysis Comment CULT NOT INDICATED Blood Urea Nitrogen 17 MG/DL Creatinine 1.00 MG/DL Random Glucose 118 MG/DL Calcium Level 8.6 MG/DL Magnesium Level 2.0 MG/DL Sodium Level 135 MEQ/L Potassium Level 3.7 MEQ/L Chloride Level 105 MEQ/L Carbon Dioxide Level 21.6 MEQ/L Anion Gap 8 MEQ/L Estimat Glomerular Filtration Rate 71 ML/MIN Troponin I LESS THAN 0.02 NG/ML MDM Medical Decision Making Medical Screen Exam Complete: Yes Emergency Medical Condition: Yes 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 Reviewed: Yes Interpretation(s) Twelve-lead EKG was reviewed by me normal sinus rhythm, right axis deviation, old inferior MT, first-degree AV block, interventricular conduction delay T- wave inversions in the inferior lead which is new since last EKG done in 2017. Heart rate of 95 bpm Differential Diagnosis ACS, STEMI, aortic dissection, thoracic radiculopathy, musculoskeletal pain Narrative Course 4:14 AM blood test results are back and within acceptable limit. Awaiting for the CT a thoracic aortogram to be done and resulted. Chest x-ray shows possible left lower lobe infiltrate. Patient was medicated for pain. 5:[address] scan report is back. As per the radiologist there is an abdominal aortic dissection that extends several centimeters above and 4 cm below the bifurcation. It also shows a left lower lobe consolidation. I discussed the case with vascular surgeon Dr. Velazquez and he wants the patient to be transferred and admitted to the medical service. Of ordered IV Rocephin and Zithromax for the pneumonia. Awaiting for the hospitalist callback. Procedures EKG Prior to Arrival: No Physician Communication Physician Communication Dr. Velazquez Diagnosis Primary Impression: Aortic dissection, abdominal Additional Impressions: Back pain Qualified Codes: M54.6 - Pain in thoracic spine Pneumonia Qualified Codes: J18.1 - Lobar pneumonia, unspecified organism Admitting Information Admitting Physician Requests: Admit Scripts [Ipratropium Neb] 0.5 MG/2.5 ML NEBU No Conflict Check 0.5 MG NEB Q6HR NEB for copd for 30 Days, ML Prov: Jono Delaney MD 12/03/17 [Budeson-Formot 160-4.5 Mcg Inh] 60 PUFF AERO No Conflict Check 1 PUFF INH Q12HR for COPD for 30 Days Prov: Jono Delaney MD 12/03/17 Levofloxacin (Levofloxacin) 750 Mg Tablet 750 MG PO DAILY for Infection for 7 Days, #7 TAB 0 Refills Prov: Jono Delaney MD 12/03/17 Prednisone (Prednisone) 10 Mg Tab 10 MG PO DIRECTED for COPD, #21 TAB 0 Refills Take 40mg daily for 3 days; 20mg daily for 3 days; 10mg daily for 3 days, then stop. Prov: Jono Delaney MD 12/03/17 Gal Corcoran MD December 02, 2017 02:35
[2017-12-02] MEDS ORDERED: ASPI-516 CHEW (02:46)
[2017-12-02] MEDS ORDERED: MORPHINE SULFATE 4 MG/ML INJ IV PUSH ONE (03:00)
[2017-12-02] MEDS ORDERED: KETOROLAC TROMETHAMINE 30 MG/ML (IVP) VIAL IV PUSH ONE (03:00)
[2017-12-02] MEDS ORDERED: SODIUM CHLORIDE 0.9% FLUSH 10 ML FLUSH IVF PRN (03:00)
[2017-12-02 03:23] LABS: AUTOMATED NEUTROPHIL # 7.9 TH/MM3 (1.8-7.7); BASOPHIL % 0.3 % (0.0-2.0); EOSINOPHIL # 0.1 TH/MM3 (0-0.4); EOSINOPHIL % 1.4 % (0.0-4.0); HEMOGLOBIN 12.6 GM/DL (13.0-17.0); LYMPH % 14.2 % (9.0-44.0); LYMPHOCYTE # 1.4 TH/MM3 (1.0-4.8); MEAN CORPUSCULAR HEMOGLOBIN 27.6 PG (27.0-34.0); MEAN CORPUSCULAR HGB CONC 33.3 % (32.0-36.0); MONO % 7.3 % (0.0-8.0); MONOCYTE # 0.7 TH/MM3 (0-0.9); NEUT % 76.8 % (16.0-70.0); PLATELET COUNT 211 TH/MM3 (150-450); RED BLOOD COUNT 4.57 MIL/MM3 (4.50-5.90); RED CELL DISTRIBUTION WIDTH 14.6 % (11.6-17.2); WHITE BLOOD COUNT 10.1 TH/MM3 (4.0-11.0)
[2017-12-02 03:30] LABS: CHLORIDE 105 MEQ/L (98-107); SODIUM (NA) 135 MEQ/L (136-145)
[2017-12-02 03:31] LABS: BILIRUBIN, URINE NEG (NEG); BLOOD, URINE TRACE (NEG); GLUCOSE,URINE NEG (NEG); KETONE, URINE NEG (NEG); NITRITE,URINE NEG (NEG); URINE COLOR YELLOW (YELLW/STRAW); URINE LEUKOCYTE ESTERASE NEG (NEG)
[2017-12-02 03:32] LABS: CALCIUM 8.6 MG/DL (8.5-10.1)
[2017-12-02 03:33] LABS: BICARBONATE 21.6 MEQ/L (21.0-32.0); BLOOD UREA NITROGEN 17 MG/DL (7-18); GLUCOSE,RANDOM 118 MG/DL (74-106)
[2017-12-02 03:36] LABS: GLOMERULAR FILTRATION RATE 71 ML/MIN (>89)
[2017-12-02 03:41] LABS: PROTHROMBIN TIME - PATIENT 10.3 SEC (9.8-11.6); TROPONIN I LESS THAN 0.02 NG/ML (0.02-0.05)
[2017-12-02 03:46] LABS: MUCUS URINE MOD /lpf (OCC); RBC, URINE 0-3 /hpf (0-3); SQUAMOUS EPITHELIAL CELL URINE 0-5 /hpf (0-5); WBC, URINE 0-2 /hpf (0-5)
--- NOTE | 2017-12-02 03:51 | RADRPT ---
EXAM DATE: 12/02/2017 3:28 AM EDT AGE/SEX: 87 years / Male INDICATIONS: Chest pain for 2 days CLINICAL DATA: This is the patient's initial encounter. Patient reports that signs and symptoms have been present for 2 days and indicates a pain score of 5/10. MEDICAL/SURGICAL HISTORY: . Hypertension. Hypercholesterolemia. Myocardial infarction CABG. Ca rdiac catheterization COMPARISON: [facility], CHEST SINGLE AP, 04/28/2017. . FINDINGS: A single AP view of the chest demonstrates the lungs to be symmetrically aerated without evidence of mass. There is patchy opacity at the left lung base. Left costophrenic angle is mildly blunted. The p atient is status post median sternotomy. Atherosclerotic changes present in the aorta. The cardiomedi astinal contours are unremarkable. Osseous structures are intact. CONCLUSION: 1. Mild patchy opacity at the left lung base which may represent early pneumonia. 2. Status post median sternotomy with no perihilar edema. Electronically signed by: Robe Mena MD 12/02/2017 3:49 AM EDT
[2017-12-02] MEDS ORDERED: IOHEXOL 350 MG/ML 10 ML VIAL (for RAD DIAG) IVCONTRAST ONE (04:21)
--- NOTE | 2017-12-02 05:22 | RADRPT ---
EXAM DATE: 12/02/2017 4:26 AM EDT AGE/SEX: 87 years / Male INDICATIONS: Low back and chest pain during inspiration. CLINICAL DATA: This is the patient's initial encounter. Patient reports that signs and symptoms have been present for 2 days and indicates a pain score of 7/10. MEDICAL/SURGICAL HISTORY: Hypertension. Hiatal hernia. CABG. Cholecystectomy. RADIATION DOSE: 18.61 CTDI (mGy) [place] [facility] [place]/11/2014. . TECHNIQUE: Volumetric scanning was performed using a multi-row detector CT scanner during bolus infu lew of 100 ml Omnipaque 350 (iohexol) nonionic water-soluble contrast as a single exam dose. The d giacomo was post processed with a variety of visualization algorithms including full volume maximum inten sity projection, multi-planar sliding thin slab reformation, curved planar reformation, and surface r endering techniques. Using automated exposure control and adjustment of the mA and/or kV according t o patient size, radiation dose was kept as low as reasonably achievable to obtain optimal diagnostic quality images. FINDINGS: LUNGS: There is no pneumothorax. No concerning pulmonary nodule is visualized. No pleural fluid is present. There is new consolidation in the left lower lobe with air bronchograms. There is chronic s carring in both posterior lower lobes as well. MEDIASTINUM: No abnormally enlarged lymph nodes by CT criteria. No axillary or hilar abnormalities a re identified. Atherosclerotic calcifications are present in the aorta. There are coronary artery theresa cifications. There is no pericardial effusion. ABDOMEN: The liver and spleen are free of focal defects. The gallbladder and pancreas demonstrate no abnormality. The adrenal glands are normal. The kidneys demonstrate no evidence of solid renal mass or hydronephrosis. No free fluid or abdominal masses are identified. No para-aortic adenopathy is see n. PELVIS: No evidence of free fluid or pelvic mass. No abnormally enlarged inguinal or retroperitoneal lymph nodes are present. The bladder is unremarkable. THORACIC AORTA: The thoracic aortic root is normal with normal branching of the great vessels. Ther e is no evidence of aneurysm or dissection. There are atherosclerotic calcifications and mild dilatat ion. ABDOMINAL AORTA: There is a dissection involving the infrarenal abdominal aorta beginning several ce ntimeters above the level of the bifurcation. There is enhancement of the false lumen. This extends i nferiorly approximately 4 centimeters and ends 2 cm above the level of the bifurcation. Calcification is noted in both proximal renal arteries with apparent mild stenosis. The proximal celiac and superi or mesenteric arteries are patent and normal in diameter. PELVIC VESSELS: The internal iliac and external iliac vessels are patent with mild dilatation and at herosclerotic change. There is a small focal aneurysm involving the proximal right common iliac arter y. This measures up to 1.9 cm. CONCLUSION: 1. New consolidation in the left lower lobe with air bronchograms most characteristic of pneumonia. 2. Small distal abdominal aortic aneurysm dissection extending for approximately 4 cm and re-communi cating with the distal aorta. 3. 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 Electronically signed by: Robe Mena MD 12/02/2017 5:20 AM EDT
[2017-12-02] MEDS ORDERED: BISACODYL 10 MG SUPP RECTAL PRN (05:45)
[2017-12-02] MEDS ORDERED: SODIUM CHLORIDE 0.9% FLUSH 10 ML FLUSH IV FLUSH PRN (05:45)
[2017-12-02] MEDS ORDERED: LACTULOSE SYRUP 20 GM/30 ML CUP PO PRN (05:45)
[2017-12-02] MEDS ORDERED: cefTRIAXone INJ 1,000 MG in SODIUM CHLORIDE 0.9% INJ 100 ML IV ONE (05:45)
[2017-12-02] MEDS ORDERED: MAGNESIUM HYDROXIDE SUSP 30 ML CUP PO PRN (05:45)
[2017-12-02] MEDS ORDERED: SENNOSIDES 8.6 MG TAB PO PRN (05:45)
[2017-12-02] MEDS ORDERED: NALOXONE HCL 0.4 MG/ML AMP IV PUSH PRN (05:45)
[2017-12-02] MEDS ORDERED: ACETAMINOPHEN 325 MG TAB PO PRN (05:45)
[2017-12-02] MEDS: AZITHROMYCIN INJ 500 MG in SODIUM CHLOR 0.9% 250 ML INJ 250 ML IV SCH (06:51)
--- NOTE | 2017-12-02 08:49 | HHI.HP ---
[facility] Primary Care Physician Jem Kaufman MD Admission Diagnosis Back pain, abdominal aortic dissection, pneumonia Diagnoses: Travel History International Travel<30 Days: No Contact w/Intl Traveler <30 Da: No Traveled to Known Affected Are: No Past Family Social History Past Medical History PNA, CAD, HTN, HLD, hypothyroidism, GERD, restless leg syndrome, gout, arthritis Past Surgical History CABG 1986, angioplasty 1 stent 1995 Cholecystectomy 2001 Bilateral eye cataract surgery Tonsillectomy 1941 Reported Medications Aspirin 81 Mg Chew 81 Mg CHEW BID Indomethacin 25 Mg Cap 25 Mg PO TID PRN Take with food, milk, or antacids to decrease stomach adverse effects. Allopurinol 100 Mg Tab 100 Mg PO DAILY Isosorbide Mononitrate 20 Mg Tab 60 Mg PO DAILY Take 2 doses 7 hours apart. Levothyroxine (Levothyroxine Sodium) 25 Mcg Tab 25 Mcg PO DAILY Omeprazole 20 Mg Tab 20 Mg PO DAILY Pravachol (Pravastatin) 20 Mg Tab 20 Mg PO HS Requip (Ropinirole HCl) 0.25 Mg Tab 0.25 Mg PO HS Allergies: Coded Allergies: peanut oil (Verified Allergy, Severe, 12/02/17) peanut (Verified Allergy, Intermediate, Diarrhea, 12/02/17) Social History Alcohol Use: Yes ("ONCE A MONTH COUPLE OF DRINKS"BEER, MIX DRINKS OR WINE) Tobacco Use: No (quit 40 eyars ago) Substance Use: No Physical Exam Vital Signs Vital Signs Date Time Temp Pulse Resp B/P (MAP) Pulse Ox O2 Delivery O2 Flow Rate FiO2 12/02/17 08:00 70 16 110/59 (76) 96 Nasal Cannula 2.00 12/02/17 07:30 72 16 107/57 (74) 95 Nasal Cannula 2.00 12/02/17 07:20 96 Nasal Cannula 2.00 12/02/17 06:41 73 16 117/61 (79) 95 Room Air 12/02/17 06:12 82 16 109/61 (77) 98 12/02/17 05:30 80 16 104/56 (72) 93 Room Air 5/24/18 04:30 82 16 104/61 (75) 95 Room Air 12/02/17 03:36 18 12/02/17 03:30 88 18 109/65 (80) 95 Room Air 112/59 (76) 12/02/17 03:30 95 Room Air 12/02/17 02:50 96 18 120/70 (87) 98 Room Air 12/02/17 02:50 18 12/02/17 02:46 98.8 102 18 117/55 (75) 94 12/02/17 02:32 98.8 102 18 117/55 (75) 92 Physical Exam GENERAL: This is a well-nourished, well-developed patient, in no apparent distress. SKIN: No rashes, ecchymoses or lesions. Cool and dry. HEAD: Atraumatic. Normocephalic. No temporal or scalp tenderness. EYES: Pupils equal round and reactive. Extraocular motions intact. No scleral icterus. No injection or drainage. ENT: Nose without bleeding, purulent drainage or septal hematoma. Throat without erythema, tonsillar hypertrophy or exudate. Uvula midline. Airway patent. NECK: Trachea midline. No JVD or lymphadenopathy. Supple, nontender, no meningeal signs. CARDIOVASCULAR: Regular rate and rhythm without murmurs, gallops, or rubs. RESPIRATORY: Clear to auscultation. Breath sounds equal bilaterally. No wheezes , rales, or rhonchi. GASTROINTESTINAL: Abdomen soft, non-tender, nondistended. No hepato-splenomegaly , or palpable masses. No guarding. MUSCULOSKELETAL: Extremities without clubbing, cyanosis, or edema. No joint tenderness, effusion, or edema noted. No calf tenderness. Negative Homans sign bilaterally. NEUROLOGICAL: Awake and alert. Cranial nerves II through XII intact. Motor and sensory grossly within normal limits. Five out of 5 muscle strength in all muscle groups. Normal speech. Laboratory Laboratory Tests Test 12/02/17 03:05 12/02/17 06:05 White Blood Count 10.1 Red Blood Count 4.57 Hemoglobin 12.6 Hematocrit 38.0 Mean Corpuscular Volume 83.0 Mean Corpuscular Hemoglobin 27.6 Mean Corpuscular Hemoglobin Concent 33.3 Red Cell Distribution Width 14.6 Platelet Count 211 Mean Platelet Volume 9.0 Neutrophils (%) (Auto) 76.8 Lymphocytes (%) (Auto) 14.2 Monocytes (%) (Auto) 7.3 Eosinophils (%) (Auto) 1.4 Basophils (%) (Auto) 0.3 Neutrophils # (Auto) 7.9 Lymphocytes # (Auto) 1.4 Monocytes # (Auto) 0.7 Eosinophils # (Auto) 0.1 Basophils # (Auto) 0.0 CBC Comment DIFF FINAL Differential Comment Prothrombin Time 10.3 Prothromb Time International Ratio 1.0 Urine Color YELLOW Urine Turbidity CLEAR Urine pH 5.0 Urine Specific [place] GREATER/EQUAL 1.030 Urine Protein NEG Urine Glucose (UA) NEG Urine Ketones NEG Urine Occult Blood TRACE Urine Nitrite NEG Urine Bilirubin NEG Urine Urobilinogen 0.2 Urine Leukocyte Esterase NEG Urine RBC 0-3 Urine WBC 0-2 Urine Squamous Epithelial Cells 0-5 Urine Mucus MOD Microscopic Urinalysis Comment CULT NOT INDICATED Blood Urea Nitrogen 17 Creatinine 1.00 Random Glucose 118 Calcium Level 8.6 Magnesium Level 2.0 Sodium Level 135 Potassium Level 3.7 Chloride Level 105 Carbon Dioxide Level 21.6 Anion Gap 8 Estimat Glomerular Filtration Rate 71 Troponin I LESS THAN 0.02 LESS THAN 0.02 Date/Time Source Procedure Growth Status 12/02/17 05:55 Blood Peripheral Aerobic Blood Culture Pending Received 12/02/17 05:55 Blood Peripheral Anaerobic Blood Culture Pending Received Result Diagram: 12/02/1730412/02/17304 Caprini VTE Risk Assessment Caprini Risk Assessment Model Point Value = 1 Point Value = 2 Point Value = 3 Point Value = 5 Age 41-60 Minor surgery BMI > 25 kg/m2 Swollen legs Varicose veins or History of unexplained or recurrent spontaneous Oral contraceptives or hormone replacement Sepsis (< 1 month) Serious lung disease, including pneumonia (< 1 month) Abnormal pulmonary function Acute myocardial infarction Congestive heart failure (< 1 month) History of inflammatory bowel disease Medical patient at bed rest Age 61-74 Arthroscopic surgery Major open surgery (> 45 min) Laparoscopic surgery (> 45 min) Malignancy Confined to bed (> 72 hours) Immobilizing plaster cast Central venous access Age >= 75 History of VTE Family history of VTE Factor V Leiden Prothrombin [id number] Lupus anticoagulant Anticardiolipin antibodies Elevated serum homocysteine Heparin-induced thrombocytopenia Other congenital or acquired thrombophilia Stroke (< 1 month) Elective arthroplasty Hip, pelvis, or leg fracture Acute spinal cord injury (< 1 month) Prophylaxis Regimen Total Risk Factor Score Risk Level Prophylaxis Regimen 0-1 Low Early ambulation 2 Moderate Order ONE of the following: *Sequential Compression Device (SCD) *Heparin 5000 units SQ BID 3-4 Higher Order ONE of the following medications: *Heparin 5000 units SQ TID *Enoxaparin/Lovenox 40 mg SQ daily (WT < 150 kg, CrCl > 30 mL/min) *Enoxaparin/Lovenox 30 mg SQ daily (WT < 150 kg, CrCl > 10-29 mL/min) *Enoxaparin/Lovenox 30 mg SQ BID (WT < 150 kg, CrCl > 30 mL/min) AND/OR *Sequential Compression Device (SCD) 5 or more Highest Order ONE of the following medications: *Heparin 5000 units SQ TID (Preferred with Epidurals) *Enoxaparin/Lovenox 40 mg SQ daily (WT < 150 kg, CrCl > 30 mL/min) *Enoxaparin/Lovenox 30 mg SQ daily (WT < 150 kg, CrCl > 10-29 mL/min) *Enoxaparin/Lovenox 30 mg SQ BID (WT < 150 kg, CrCl > 30 mL/min) AND *Sequential Compression Device (SCD) Physician Certification Order for Inpatient Services The services are ordered in accordance with Medicare regulations or non- Medicare payer requirements, as applicable. In the case of services not specified as inpatient-only, they are appropriately provided as inpatient services in accordance with the 2-midnight benchmark. days is the estimated time the patient will need to remain in the hospital, assuming treatment plan goals are met and no additional complications. Nikolay Riley MD December 02, 2017 08:49
[2017-12-02] MEDS: SODIUM CHLORIDE 0.9% FLUSH 10 ML FLUSH IV FLUSH SCH ×2 (09:00→21:00)
[2017-12-02] MEDS ORDERED: ISOSORBIDE MONONITRATE 20 MG TAB PO SCH (11:15)
[2017-12-02] MEDS ORDERED: ISOSORBIDE MONONITRATE 20 MG TAB PO ONE (11:45)
[2017-12-02] MEDS: RESP: IPRATROPIUM 0.5 MG/2.5 ML NEB NEB SCH ×3 (11:56→19:21)
[2017-12-02] MEDS: PANTOPRAZOLE SOD 20 MG DELAYED RELEASE TAB PO SCH (12:13)
[2017-12-02] MEDS: DILTIAZEM-CD 120 MG CAP ER PO SCH (12:14)
--- NOTE | 2017-12-02 12:27 | HHI.HP ---
[facility] Jem Kaufman MD Admission Diagnosis Back pain, abdominal aortic dissection, pneumonia Diagnoses: Travel History International Travel<30 Days: No Contact w/Intl Traveler <30 Da: No Traveled to Known Affected Are: No History of Present Illness 87-year-old male with a history of CAD, hypertension, hyperlipidemia who presents with 3 day history of intermittent episodes of sharp substernal chest pain, with most recent episode last night radiating to his back, worse with deep breathing, however this has subsequently resolved. Patient does report fatigue worsening over the past several days, however denies any nausea, vomiting, lightheadedness, dizziness, fevers, chills. Patient reports chronic cough for which he sees Dr. Diaz, who recently put him on steroid treatment 10 days ago without much improvement. Patient does report a 30 pound weight loss over the past 6 months to a year secondary to decreased appetite. Review of Systems Except as stated in HPI: all other systems reviewed are Neg Past Family Social History Past Medical History Chronic recurrent pneumonia CAD Hypertension Hyperlipidemia Hypothyroidism GERD Restless leg syndrome Gout Arthritis. Patient with known aortic aneurysm Past Surgical History CABG in 1986. Catheterization with stenting Cholecystectomy 2001 Bilateral cataract surgery Tonsillectomy Reported Medications Reported Meds & Active Scripts Active Cardizem CD 24 HR (Diltiazem CD 24 HR) 120 Mg Caper 120 Mg PO DAILY Reported Aspirin 81 Mg Chew 81 Mg CHEW BID Indomethacin 25 Mg Cap 25 Mg PO TID PRN Take with food, milk, or antacids to decrease stomach adverse effects. Allopurinol 100 Mg Tab 100 Mg PO DAILY Isosorbide Mononitrate 20 Mg Tab 60 Mg PO DAILY Take 2 doses 7 hours apart. Levothyroxine (Levothyroxine Sodium) 25 Mcg Tab 25 Mcg PO DAILY Omeprazole 20 Mg Tab 20 Mg PO DAILY Pravachol (Pravastatin) 20 Mg Tab 20 Mg PO HS Requip (Ropinirole HCl) 0.25 Mg Tab 0.25 Mg PO HS Allergies: Coded Allergies: peanut oil (Verified Allergy, Severe, 12/02/17) peanut (Verified Allergy, Intermediate, Diarrhea, 12/02/17) Family History Half sister with AK, at age 65 Mother's away secondary to old age at age 81. Father is estranged. Social History Patient smoked 1 pack per day for 30 years, however quit says 40 years ago. Patient reports occasional alcohol use. Denies any illicit drugs. Physical Exam Vital Signs Vital Signs Date Time Temp Pulse Resp B/P (MAP) Pulse Ox O2 Delivery O2 Flow Rate FiO2 12/02/17 11:56 97 Nasal Cannula 1.00 12/02/17 08:00 70 16 110/59 (76) 96 Nasal Cannula 2.00 12/02/17 07:30 72 16 107/57 (74) 95 Nasal Cannula 2.00 12/02/17 07:20 96 Nasal Cannula 2.00 12/02/17 06:41 73 16 117/61 (79) 95 Room Air 12/02/17 06:12 82 16 109/61 (77) 98 12/02/17 05:30 80 16 104/56 (72) 93 Room Air 12/02/17 04:30 82 16 104/61 (75) 95 Room Air 12/02/17 03:36 18 12/02/17 03:30 88 18 109/65 (80) 95 Room Air 112/59 (76) 12/02/17 03:30 95 Room Air 12/02/17 02:50 96 18 120/70 (87) 98 Room Air 12/02/17 02:50 18 12/02/17 02:46 98.8 102 18 117/55 (75) 94 12/02/17 02:32 98.8 102 18 117/55 (75) 92 Physical Exam GENERAL: This is a well-nourished, well-developed patient, in no apparent distress. Alert and oriented 3. SKIN: No rashes, ecchymoses or lesions. Cool and dry. HEAD: Atraumatic. Normocephalic. No temporal or scalp tenderness. EYES: Extraocular motions intact. No scleral icterus. No injection or drainage. ENT: Throat without erythema, tonsillar hypertrophy or exudate. Uvula midline. Airway patent. NECK: Trachea midline. No JVD. 1.5 cm right posterior cervical chain nontender lymph node. Supple, nontender, no meningeal signs. CARDIOVASCULAR: Regular rate and rhythm without murmurs, gallops, or rubs. Faint bilateral lower extremity pedal and posterior tibial pulses. Extremities warm with perfusion intact. RESPIRATORY: Crackles left lower lobe. No rhonchi. No wheezes. GASTROINTESTINAL: Abdomen soft, non-tender, nondistended. No hepato-splenomegaly , or palpable masses. No guarding. No bruits. MUSCULOSKELETAL: Extremities without clubbing, cyanosis, or edema. No joint tenderness, effusion, or edema noted. No calf tenderness. Negative Homans sign bilaterally. NEUROLOGICAL: Awake and alert. Cranial nerves II through XII intact. Motor and sensory grossly within normal limits. Five out of 5 muscle strength in all muscle groups. Normal speech. Laboratory Laboratory Tests Test 12/02/17 03:05 12/02/17 06:05 White Blood Count 10.1 Red Blood Count 4.57 Hemoglobin 12.6 Hematocrit 38.0 Mean Corpuscular Volume 83.0 Mean Corpuscular Hemoglobin 27.6 Mean Corpuscular Hemoglobin Concent 33.3 Red Cell Distribution Width 14.6 Platelet Count 211 Mean Platelet Volume 9.0 Neutrophils (%) (Auto) 76.8 Lymphocytes (%) (Auto) 14.2 Monocytes (%) (Auto) 7.3 Eosinophils (%) (Auto) 1.4 Basophils (%) (Auto) 0.3 Neutrophils # (Auto) 7.9 Lymphocytes # (Auto) 1.4 Monocytes # (Auto) 0.7 Eosinophils # (Auto) 0.1 Basophils # (Auto) 0.0 CBC Comment DIFF FINAL Differential Comment Prothrombin Time 10.3 Prothromb Time International Ratio 1.0 Urine Color YELLOW Urine Turbidity CLEAR Urine pH 5.0 Urine Specific [place] GREATER/EQUAL 1.030 Urine Protein NEG Urine Glucose (UA) NEG Urine Ketones NEG Urine Occult Blood TRACE Urine Nitrite NEG Urine Bilirubin NEG Urine Urobilinogen 0.2 Urine Leukocyte Esterase NEG Urine RBC 0-3 Urine WBC 0-2 Urine Squamous Epithelial Cells 0-5 Urine Mucus MOD Microscopic Urinalysis Comment CULT NOT INDICATED Blood Urea Nitrogen 17 Creatinine 1.00 Random Glucose 118 Calcium Level 8.6 Magnesium Level 2.0 Sodium Level 135 Potassium Level 3.7 Chloride Level 105 Carbon Dioxide Level 21.6 Anion Gap 8 Estimat Glomerular Filtration Rate 71 Troponin I LESS THAN 0.02 LESS THAN 0.02 Date/Time Source Procedure Growth Status 12/02/17 05:55 Blood Peripheral Aerobic Blood Culture Pending Received 12/02/17 05:55 Blood Peripheral Anaerobic Blood Culture Pending Received Result Diagram: 12/02/17 0305 12/02/17 0305 Imaging Last Impressions Chest X-Ray 12/02/17 0253 Signed Impressions: CONCLUSION: 1. Mild patchy opacity at the left lung base which may represent early pneumon ia. 2. Status post median sternotomy with no perihilar edema. Aorta CTA 12/02/17 0000 Signed Impressions: CONCLUSION: 1. New consolidation in the left lower lobe with air bronchograms most charact eristic of pneumonia. 2. Small distal abdominal aortic aneurysm dissection extending for approximate ly 4 cm and re-communicating with the distal aorta. 3. 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 Caprini VTE Risk Assessment Caprini VTE Risk Assessment: Mod/High Risk (score >= 2) Caprini Risk Assessment Model Point Value = 1 Point Value = 2 Point Value = 3 Point Value = 5 Age 41-60 Minor surgery BMI > 25 kg/m2 Swollen legs Varicose veins or History of unexplained or recurrent spontaneous Oral contraceptives or hormone replacement Sepsis (< 1 month) Serious lung disease, including pneumonia (< 1 month) Abnormal pulmonary function Acute myocardial infarction Congestive heart failure (< 1 month) History of inflammatory bowel disease Medical patient at bed rest Age 61-74 Arthroscopic surgery Major open surgery (> 45 min) Laparoscopic surgery (> 45 min) Malignancy Confined to bed (> 72 hours) Immobilizing plaster cast Central venous access Age >= 75 History of VTE Family history of VTE Factor V Leiden Prothrombin [id number] Lupus anticoagulant Anticardiolipin antibodies Elevated serum homocysteine Heparin-induced thrombocytopenia Other congenital or acquired thrombophilia Stroke (< 1 month) Elective arthroplasty Hip, pelvis, or leg fracture Acute spinal cord injury (< 1 month) Prophylaxis Regimen Total Risk Factor Score Risk Level Prophylaxis Regimen 0-1 Low Early ambulation 2 Moderate Order ONE of the following: *Sequential Compression Device (SCD) *Heparin 5000 units SQ BID 3-4 Higher Order ONE of the following medications: *Heparin 5000 units SQ TID *Enoxaparin/Lovenox 40 mg SQ daily (WT < 150 kg, CrCl > 30 mL/min) *Enoxaparin/Lovenox 30 mg SQ daily (WT < 150 kg, CrCl > 10-29 mL/min) *Enoxaparin/Lovenox 30 mg SQ BID (WT < 150 kg, CrCl > 30 mL/min) AND/OR *Sequential Compression Device (SCD) 5 or more Highest Order ONE of the following medications: *Heparin 5000 units SQ TID (Preferred with Epidurals) *Enoxaparin/Lovenox 40 mg SQ daily (WT < 150 kg, CrCl > 30 mL/min) *Enoxaparin/Lovenox 30 mg SQ daily (WT < 150 kg, CrCl > 10-29 mL/min) *Enoxaparin/Lovenox 30 mg SQ BID (WT < 150 kg, CrCl > 30 mL/min) AND *Sequential Compression Device (SCD) Assessment and Plan Assessment and Plan //Acute chest pain //New inverted T waves on EKG. =-Troponins are negative at this time. Pain has resolved at this time. -Pain could be secondary to pneumonia versus aortic aneurysm dissection.. -Consult patient's ground control approach technician, Dr. Lee. //Community-acquired pneumonia -Continue treatment with Levaquin. Incentive spirometry and Acapella. Add ipratropium nebs. Does not appear to be need for steroids at this time. Will consult patient's primary quality assurance project manager. //Abdominal aortic aneurysm dissection = As seen on CT. Vascular surgery consult pending. Appreciate assistance. Blood pressure control. //Hypertension. Chronic. Continue home medications. //Restless leg syndrome. Chronic. Continue ropinirole. //GERD. Chronic. Continue home medications. //Hypothyroidism. Chronic. Continue home medication. //Weight loss. Reportedly secondary to decreased appetite. Advised patient to follow-up with primary care as outpatient. //1.5 cm nontender lymph node right posterior cervical chain on exam. Advised patient to follow-up with primary care for this. He conveys understanding //DVT prophylaxis. SCDs. Discussed Condition With Patient, nurse, ED physician Physician Certification 2 Midnight Certification Type: Admission for Inpatient Services Order for Inpatient Services The services are ordered in accordance with Medicare regulations or non- Medicare payer requirements, as applicable. In the case of services not specified as inpatient-only, they are appropriately provided as inpatient services in accordance with the 2-midnight benchmark. Estimated LOS (days): 2 days is the estimated time the patient will need to remain in the hospital, assuming treatment plan goals are met and no additional complications. Post-Hospital Plan: Not yet determined Jono Delaney MD December 02, 2017 12:27
[2017-12-02] MEDS ORDERED: ISOSORBIDE MONONITRATE 60 MG CR TAB (IMDUR) PO ONE (13:00)
--- NOTE | 2017-12-02 16:53 | MB ---
cc: Henrik Boudreaux MD DATE: 12/02/2017 REASON FOR CONSULTATION: Evaluation of chest pain. HISTORY OF PRESENT ILLNESS: Keith Oropeza is an 87-year-old man with known coronary artery disease. He had coronary artery bypass grafting in 1986. His last catheterization was 12/2009. He had a patent left internal mammary graft to the LAD, patent vein graft to the circumflex marginal branch and occluded vein graft to the right coronary artery, and occluded vein graft to the diagonal with [id number] collaterals to an occluded right coronary artery. He has aortic valve sclerosis. He says he has had intermittent pneumonia going back for years. Four weeks ago, he had this episode of severe pain with tightness in the stomach going around to his back, lasting 30 minutes and resolved. He had it again 2 weeks ago. He had it again about a week later. His back feels frozen like; it is a severe pain. It stopped after 3 days. He is now having pain if he takes a deep breath. He has a chronic raspy cough and he brings up lots of clear mucus. He got treated with morphine in the ER and his chest pains improved. Cardiac enzymes are negative. He has had a 30-pound weight loss in the past 6 months due to decreased appetite. He has been following with Dr. Magaña for his cough. He has pain when he takes a deep breath. PAST MEDICAL HISTORY: Includes recurrent pneumonia. He has abdominal aortic aneurysm with a chronic dissection, followed by Dr. Galicia for 5 years. Aortic valve sclerosis, paroxysmal atrial fibrillation, hypertension. PAST SURGICAL HISTORY: Includes cataract surgery, cholecystectomy, bypass surgery. He has had a previous coronary stent, but I do not have the details available, previous tonsillectomy. SOCIAL HISTORY: He is . He is retired. He quit smoking in 1973. 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 ALLERGIES: NONE KNOWN. REVIEW OF SYSTEMS: Noncontributory. PHYSICAL EXAMINATION: GENERAL: An elderly, alert white male in no acute distress. VITAL SIGNS: Charted. HEENT: Unremarkable. NECK: No JVD. No bruits. CHEST: Shows rales at the left base with some egophony. CARDIAC EXAM: S1, S2. Regular rate and rhythm. There is grade 2/6 systolic ejection murmur. ABDOMEN: Soft, nontender. EXTREMITIES: No clubbing, cyanosis or edema. Pedal pulses, however, seem to be a bit diminished. LABORATORY DATA: His EKG demonstrates sinus rhythm, first degree AV block, old inferior infarct, nonspecific intraventricular conduction delay. His lab work shows troponins are negative x3. Creatinine is 1. Hematocrit is 38. He had a CTA of his abdominal aorta which shows a new consolidation of the left lower lobe with air bronchograms and a small distal abdominal aortic aneurysm dissection. The dissection apparently is old. IMPRESSION: His chest pain does not sound particularly like ischemia. He has findings in the left lower lobe on his chest x-ray. There is no evidence for myocardial infarction. RECOMMENDATIONS: Recommend consultation with Dr. Magaña. Further therapy to be determined. MD ETHAN Mendez/MOISES , 04:21 PM , 04:53 PM
--- NOTE | 2017-12-02 17:02 | MB ---
cc: Benjamin Velazquez MD, Slobodan MD DATE: 12/02/2017 REASON FOR CONSULTATION: Abdominal aortic aneurysm, dissection of the right iliac artery and chest pain, coronary artery disease and hypertension. HISTORY OF PRESENT ILLNESS: This 87-year-old pleasant gentleman presents to the [facility] early this morning with bilateral chest pain and mid level back pain. The patient has had this for about 3 days and decided to come to the emergency room. The patient is known to have had coronary artery disease and had a bypass in the s and stents in the s. The patient underwent CT of abdomen and pelvis looking for dissection and he was found a small abdominal aortic aneurysm just proximal to the aortic bifurcation and dissection of his right iliac artery. Question arise about the significance of these symptoms. In addition, some other issues arise. PAST MEDICAL HISTORY: Coronary artery disease, hypertension, GE reflux, sleep apnea, hypothyroidism. PAST SURGICAL HISTORY: Cholecystectomy, cataract surgery, coronary artery bypass grafting x5 in 1986 and then cardiac stents in 1994. 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 PHYSICAL EXAMINATION: GENERAL: Reveals a very pleasant 87-year-old gentleman, awake, alert, oriented completely with it. HEENT: Normocephalic. No trauma to head. Pupils equal, reactive. Extraocular muscles intact. NECK: Bilateral carotid pulses and bilateral faint bruits, but the patient is totally asymptomatic. HEART: Regular rhythm. ABDOMEN: Soft. Active bowel sounds. No rebound, no guarding, no masses. At this point, on exam, the patient is not tender at all. EXTREMITIES: The patient has bilateral palpable femoral pulses and distal pulses by palpation. No signs of acute vascular deficit. BACK: Normal. NEUROLOGIC: The patient is grossly intact. RECOMMENDATIONS: I reviewed laboratory and diagnostic procedures. This gentleman has chest pain and back pain, which at this point is unclear as far as the origin is concerned. I believe it was very prudent to do a CT of the abdomen and pelvis to assess whether the patient might have an aneurysm. At this point, the patient does have a small abdominal aortic aneurysm, which is about 2-3 cm in diameter, outpouching right lateral from the aorta just above the bifurcation and then another dissection a little lower down in the right iliac. Both of these are old. The small aortic outpouching is due to the dissection that probably occurred at some point a few years ago where the calcific plaque was elevated and some blood leaked into this false channel. The same is the case with the iliac dissection. None of these require any surgical intervention and probably will stay the same. A few of these will grow to form saccular aneurysms that have to be treated and, at that point, the patient would be a candidate for endovascular stenting. At this point, however, the patient does not need any remedy. These are old findings and clearly the causes of chest pain have to be evaluated separately. I am sorry I cannot contribute anymore to his care. I thank you much for the referral. Thank you very much for referral. MD ERNIE Muñiz/ , 04:36 PM , 05:01 PM
[2017-12-02] MEDS ORDERED: DEXT 5%-NACL 0.45% 1000 ML INJ 1,000 ML IV SCH (19:00)
[2017-12-02] MEDS: methylPREDNISolone SOD SUCC 40 MG/1 ML VIAL IV SCH (19:24)
[2017-12-02] MEDS: CEFEPIME INJ 1,000 MG in SODIUM CHLORIDE 0.9% INJ 100 ML IV SCH (19:46)
[2017-12-02] MEDS: ASPIRIN 81 MG CHEW TAB CHEW SCH (19:46)
[2017-12-02] MEDS: BUDESONIDE-FORMOTEROL 160/4.5 MCG INHALER INH SCH (20:07)
[2017-12-02] MEDS ORDERED: PRAVASTATIN SOD 20 MG TAB PO SCH (21:00)
--- NOTE | 2017-12-03 00:18 | MB ---
cc: Nitin Magaña MD DATE: 12/02/2017 REASON FOR CONSULTATION: Pneumonia and history of hypertension. HISTORY OF PRESENT ILLNESS: This is an 87-year-old white male who has had a past history of hypertension, hyperlipidemia and a history of coronary artery disease, was admitted through the emergency room with substernal chest pain radiating to the back. These pains are worse on taking deep breaths and the patient was also having some coughing spells. He was seen in the emergency room, where a CT scan of the chest was done, as well as a chest x-ray. The chest x-ray showed mild left basilar infiltrate and an abdominal CTA showed a distal abdominal aortic aneurysm with dissection and a smaller aneurysm involving the proximal iliac artery, as well as the new consolidation in the left lower lobe with air bronchograms. The patient has been started on IV antibiotic therapy and has been placed on oxygen at 2 liters. He has a dry cough and wheezing and denied fevers or chills. PAST MEDICAL HISTORY: Included hypertension, hyperlipidemia, hypothyroidism, gastroesophageal reflux and restless legs. He has had episodes of pneumonia and has had gout and is previously known to have an abdominal aortic aneurysm surgery. PAST SURGICAL HISTORY: Includes cardiac catheterization with stenting, previous coronary artery bypass grafting x 2, history of tonsillectomy remotely and cholecystectomy, as well as cataract repair with implants. ALLERGIES: PEANUT OIL. FAMILY HISTORY: Significant for heart disease. MEDICATIONS: List included: 1. Isordil 60 mg daily. 2. Levothyroxine 25 mcg a day. 3. Requip 0.25 mg 2 tablets daily. 4. Omeprazole 20 mg a day. 5. Pravachol 20 mg at bedtime. 6. Allopurinol 100 mg daily. REVIEW OF SYSTEMS: The patient admits to having some weight loss. He has had mild leg swelling. He has postnasal drip and nasal congestion and sinus drainage. He has epigastric distress and reflux and has urinary frequency and no hematuria. He has joint pains of his extremities and denies skin rashes. HABITS: The patient does not smoke, but in the past he smoked 1 pack per day for over 30 years. Drinks alcohol occasionally. PHYSICAL EXAMINATION: GENERAL: This averagely built elderly man is pale, in no acute distress. Mild clubbing. No cyanosis. Minimal peripheral edema. No lymphadenopathy. VITAL SIGNS: Blood pressure is 110/60, pulse 70, respirations 16, temperature 97.5. HEENT: Head normocephalic. Pupils reactive and equal. Arcus senilis seen. Tongue was moist. Throat is injected. Nasal mucosa edematous. NECK: Supple, no bruits or thyroid enlargement. LUNGS: Distant breath sounds with expiratory wheezes throughout both lung hayward. Occasional basilar crackles, more on the left side. HEART: The heart sounds are irregular, S1 and S2. No murmur. ABDOMEN: Soft, benign. No mass. No organomegaly. EXTREMITIES: Mild varicosities and decreased peripheral pulses. Reflexes 1+, with no gross motor deficits. Cranial nerves are grossly intact. RECTAL: Deferred. IMPRESSION: 1. Left basilar pneumonia with hypoxemia. 2. Chest pain, possible pleuritic chest pain. 3. History of coronary artery disease. 4. Abdominal aortic aneurysm with dissection, chronic. 5. Chronic obstructive pulmonary disease. PLAN: The patient has been placed on antibiotic coverage including cefepime 1 g IV q. 8 hours and Zithromax 500 mg IV daily, nebulized DuoNeb solution added q.i.d. and also uses Symbicort 160/4.5 mcg 2 puffs b.i.d. Followup chest x-ray will be obtained to evaluate the infiltrate and the patient will be advised to use an incentive spirometer every 3 hours. Sputum will be sent for culture and Gram stain. We will continue with prophylactic anticoagulation. Thank you, Dr. Delaney, for this consultation. MD AAKASH Glover/JERONIMO , 11:15 PM , 12:17 AM
[2017-12-03] MEDS: methylPREDNISolone SOD SUCC 40 MG/1 ML VIAL IV SCH (03:40)
[2017-12-03 03:41] VITALS: BP 120/56; PULSE 68; RESP 14; O2SAT 97
[2017-12-03] MEDS: RESP: IPRATROPIUM 0.5 MG/2.5 ML NEB NEB SCH ×2 (03:57→10:30)
[2017-12-03] MEDS: CEFEPIME INJ 1,000 MG in SODIUM CHLORIDE 0.9% INJ 100 ML IV SCH ×2 (03:59→11:52)
[2017-12-03] MEDS: AZITHROMYCIN INJ 500 MG in SODIUM CHLOR 0.9% 250 ML INJ 250 ML IV SCH (05:40)
--- NOTE | 2017-12-03 05:55 | RADRPT ---
EXAM DATE: 12/03/2017 5:37 AM EDT AGE/SEX: 87 years / Male INDICATIONS: Shortness of breath, possible pneumonia. CLINICAL DATA: This is the patient's subsequent encounter. Patient reports that signs and symptoms h ave been present for 3 days and indicates a pain score of 0/10. MEDICAL/SURGICAL HISTORY: Hypertension. Hypercholesterolemia. [place] CABG. COMPARISON: [facility], CHEST SINGLE AP, 12/02/2017. . FINDINGS: The patient is status post sternotomy. The heart size is normal. There is minimal patchy density seen at the lung bases. The aorta is calcified. CONCLUSION: Minimal patchy density at the bases likely related to minimal consolidation or atelectasis which appe ars unchanged from the prior exam. Electronically signed by: Tulio Maya MD 12/03/2017 5:53 AM EDT
[2017-12-03] MEDS ORDERED: LEVOTHYROXINE SODIUM 25 MCG TAB PO SCH (06:00)
[2017-12-03 07:00] VITALS: BP 124/65; PULSE 71; RESP 16; O2SAT 98
[2017-12-03] MEDS ORDERED: ISOSORBIDE MONONITRATE 20 MG TAB PO SCH (07:00)
[2017-12-03 07:30] VITALS: O2SAT 95
--- NOTE | 2017-12-03 07:34 | EKG ---
Date Performed: 12/02/2017 Time Performed: 03:15:38 PTAGE: 87 years EKG: Sinus rhythm WITH FIRST DEGREE AV BLOCK INFERIOR MYOCARDIAL INFARCTION ABNORMAL ECG PREVIOUS TRACING : 04/28/2017 14.05 DOCTOR: Johnny Caraballo Interpretating Date/Time 12/03/2017 07:28:27
[2017-12-03 09:00] VITALS: BP 130/72; PULSE 76; RESP 16; O2SAT 98
[2017-12-03] MEDS ORDERED: LEVOFLOXACIN 750 MG TAB PO SCH (09:00)
[2017-12-03] MEDS ORDERED: ALLOPURINOL 100 MG TAB PO SCH (09:00)
[2017-12-03] MEDS: ASPIRIN 81 MG CHEW TAB CHEW SCH (09:21)
[2017-12-03] MEDS: PANTOPRAZOLE SOD 20 MG DELAYED RELEASE TAB PO SCH (09:22)
[2017-12-03] MEDS: DILTIAZEM-CD 120 MG CAP ER PO SCH (09:23)
[2017-12-03] MEDS: SODIUM CHLORIDE 0.9% FLUSH 10 ML FLUSH IV FLUSH SCH (09:25)
[2017-12-03] MEDS: BUDESONIDE-FORMOTEROL 160/4.5 MCG INHALER INH SCH (09:25)
[2017-12-03] MEDS ORDERED: LEVO750T3 PO (09:52)
[2017-12-03] MEDS ORDERED: Budeson-Formot 160-4.5 Mcg Inh INH (09:52)
[2017-12-03] MEDS ORDERED: Ipratropium Bromide NEB (09:52)
[2017-12-03] MEDS ORDERED: PRED10 PO (09:52)
--- NOTE | 2017-12-03 10:00 | HHI.PR ---
Subjective Remarks Patient says he is feeling better. No further episodes of chest pain. Reports cough is chronic. Denies any nausea or vomiting. Says he would like to go home. Objective Vital Signs Date Time Temp Pulse Resp B/P (MAP) Pulse Ox O2 Delivery O2 Flow Rate FiO2 12/03/17 09:00 76 16 130/72 (91) 98 Nasal Cannula 2.00 12/03/17 07:30 95 Nasal Cannula 2.00 12/03/17 03:41 68 14 120/56 (77) 97 Nasal Cannula 1.00 12/02/17 23:03 75 14 115/58 (77) 97 Nasal Cannula 2.00 12/02/17 19:25 84 18 132/63 (86) 98 Nasal Cannula 1.00 12/02/17 19:21 96 Nasal Cannula 2.00 12/02/17 18:30 75 16 135/60 (85) 97 Nasal Cannula 2.00 12/02/17 17:00 72 15 114/56 (75) 96 Nasal Cannula 2.00 12/02/17 16:00 72 15 102/57 (72) 95 Nasal Cannula 2.00 12/02/17 15:00 74 15 109/53 (71) 95 Nasal Cannula 2.00 12/02/17 14:00 84 15 108/53 (71) 95 Nasal Cannula 2.00 12/02/17 13:00 74 15 111/55 (73) 96 Nasal Cannula 2.00 12/02/17 12:00 74 16 134/65 (88) 96 Nasal Cannula 2.00 12/02/17 11:56 97 Nasal Cannula 1.00 12/02/17 11:00 72 16 131/63 (85) 96 Nasal Cannula 2.00 12/02/17 10:00 74 16 127/61 (83) 96 Nasal Cannula 2.00 I/O 12/02/17 12/02/17 12/02/17 12/03/17 12/03/17 12/03/17 07:00 15:00 23:00 07:00 15:00 23:00 Intake Total 100 ml 350 ml Balance 100 ml 350 ml Intake IV Total 100 ml 350 ml Result Diagram: 12/02/17 0305 12/02/17 0305 Objective Remarks GENERAL: Patient sitting up in bed. Appears comfortable. Alert and oriented 4. SKIN: Warm and dry. HEAD: Normocephalic. EYES: No scleral icterus. No injection or drainage. NECK: Supple, trachea midline. No JVD . CARDIOVASCULAR: Regular rate and rhythm without murmurs, gallops, or rubs. RESPIRATORY: Crackles bilaterally predominantly on the left. No rhonchi. No wheezes. GASTROINTESTINAL: Abdomen soft, non-tender, nondistended. MUSCULOSKELETAL: No cyanosis, or edema. BACK: Nontender without obvious deformity. No CVA tenderness. A/P Assessment and Plan //Acute chest pain //New inverted T waves on EKG. =-Troponins are negative at this time. Pain has resolved at this time. -Pain could be secondary to pneumonia versus aortic aneurysm dissection.. -Consult patient's automotive specialty technician, Dr. Lee. = This is likely secondary to pneumonia. It appears to have resolved. //Community-acquired pneumonia -Continue treatment with Levaquin. Incentive spirometry and Acapella. Add ipratropium nebs. Does not appear to be need for steroids at this time. Will consult patient's primary marine structural welder. = Discussed with marine structural welder, who is cleared for discharge on by mouth antibiotics. Follow-up with pulmonology as outpatient. //Abdominal aortic aneurysm dissection = As seen on CT. Vascular surgery consult pending. Appreciate assistance. Blood pressure control. = Appreciate vascular surgery input. No acute need for intervention. Follow- up with primary care. //Hypertension. Chronic. Continue home medications. //Restless leg syndrome. Chronic. Continue ropinirole. //GERD. Chronic. Continue home medications. //Hypothyroidism. Chronic. Continue home medication. //Weight loss. Reportedly secondary to decreased appetite. Advised patient to follow-up with primary care as outpatient. //1.5 cm nontender lymph node right posterior cervical chain on exam. Advised patient to follow-up with primary care for this. He conveys understanding = Follow-up with primary care. Patient conveys understanding. //DVT prophylaxis. SCDs. Discharge Planning Discharge home. Continue heart healthy diet. Activity ad shon. Please see discharge medication list for medication regimen. Follow-up with pulmonology and primary care as outpatient. Jono Delaney MD December 03, 2017 10:00
[2017-12-03] MEDS ORDERED: predniSONE 20 MG TAB PO ONE (10:45)
[2017-12-03 11:30] VITALS: BP 112/56; PULSE 80; RESP 16; O2SAT 99
== END 2017-12-03 15:09 | disposition home or self-care (01) | DRG 193 ==
LOC: PHED 02:25 → PHEDA 05:52 → NEDA 10:58 → NEDH 19:54
PROVIDERS: ADMIT Internal Medicine; ATTEND Internal Medicine
DX: J18.9 Pneumonia, unspecified organism (principal); I71.02 Dissection of abdominal aorta; J44.0 Chronic obstructive pulmonary disease with (acute) lower respiratory infection; Z95.1 Presence of aortocoronary bypass graft; Z95.5 Presence of coronary angioplasty implant and graft; I10 Essential (primary) hypertension; G25.81 Restless legs syndrome; E78.5 Hyperlipidemia, unspecified; E03.9 Hypothyroidism, unspecified; M19.90 Unspecified osteoarthritis, unspecified site; M10.9 Gout, unspecified; K21.9 Gastro-esophageal reflux disease without esophagitis; I25.10 Atherosclerotic heart disease of native coronary artery without angina pectoris; R63.4 Abnormal weight loss; Z87.891 Personal history of nicotine dependence
CPT/HCPCS: 71045; 71275; 74174; 80048; 81001; 83735; 84484; 85025; 85610; 87040; 93005; 94150; 94640; 94664; 94667; 94668; 96374; 96375; J0456; J0692; J0696; J1885; J2270; J2920; J7050; J7512; J7644; Q9967

== ENCOUNTER 2018-05-08 15:50 | Inpatient (IN) ==
--- NOTE | 2018-05-08 16:05 | ED ---
HPI General Chief Complaint: Respiratory Symptoms Stated Complaint: flush/weakness Time Seen by Provider: 05/08/18 16:01 Source: patient Mode of arrival: wheelchair Limitations: no limitations History of Present Illness Per patient he has been having a productive cough of yellow sputum, along with progressive generalized weakness and shortness of breath over the last 5 days has been progressively worsening. MD Complaint: Reports shortness of breath and cough Onset (ago): day(s) (5) Context: Reports recent illness Severity: moderate Consistency/Duration: progressively worsening Relieving factors: nothing Exacerbating factors: exertion Known history of: Reports recurrent pneumonia Associated symptoms: Reports cough, wheezing, sputum production and chest congestion Treatment prior to arrival: Reports none Related Data Home oxygen amount: none Home Medications Medication Instructions Recorded Confirmed albuterol sulfate 1 puff INHALATION QID 05/08/18 05/08/18 allopurinol 100 mg PO DAILY 05/08/18 05/08/18 aspirin [Aspir-81] 81 mg PO DAILY 05/08/18 05/08/18 cholecalciferol (vitamin D3) 1,000 unit PO DAILY 05/08/18 05/08/18 [Vitamin D3] diltiazem HCl 120 mg PO DAILY 05/08/18 05/08/18 [id number]-oldtzukyv-[id number] 1 inh INHALATION DAILY 05/08/18 05/08/18 [Trelegy Ellipta] indomethacin 25 mg PO BID PRN 05/08/18 05/08/18 isosorbide mononitrate 60 mg PO DAILY 05/08/18 05/08/18 levothyroxine 25 mcg PO DAILY 05/08/18 05/08/18 omeprazole 20 mg PO DAILY 05/08/18 05/08/18 pravastatin 80 mg PO DAILY 05/08/18 05/08/18 ropinirole 0.5 mg PO TID PRN 05/08/18 05/08/18 Allergies Allergy/AdvReac Type Severity Reaction Status Date / Time peanut oil Allergy Severe Diarrhea Verified 05/08/18 15:57 peanut Allergy Intermediate Diarrhea Verified 12/02/17 02:42 Review of Systems ROS: all other systems reviewed are negative PMFSH History History 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 Social History Social History Substance History: No History of Abuse Second Hand Smoke Exposure: No Smoking Status: Former smoker How Often Do You Have a Drink Containing Alcohol: Monthly or less [facility] within the Last 8 Weeks: No Recent Out of Country Travel within the Last 8 Weeks: No Exam Narrative Exam Narrative: GENERAL: Elderly male in moderate respiratory distress ... Increased work of breathing SKIN: Warm and dry. HEAD: Atraumatic. Normocephalic. EYES: Pupils equal and round. No scleral icterus. No injection or drainage. ENT: No nasal bleeding or discharge. Mucous membranes pink and moist. NECK: Trachea midline. No JVD. CARDIOVASCULAR: Tachycardic rate regular rhythm . no rubs or gallops RESPIRATORY: Tachypneic with accessory muscle use. Tripoding, speaking in 2 word dyspnea. Decreased tidal volume, wheezing/rhonchi/crackles heard throughout the entirety of this left lung, however the right lung is relatively clear. GASTROINTESTINAL: Abdomen soft, non-tender, nondistended. No rebound or guarding MUSCULOSKELETAL: Extremities without clubbing, cyanosis, or edema. No obvious deformities. NEUROLOGICAL: Awake and alert. No obvious cranial nerve deficits. Motor grossly within normal limits. Five out of 5 muscle strength in the arms and legs. Normal speech. PSYCHIATRIC: Appropriate mood and affect; insight and judgment normal. Course Initial Documented Vital Signs Temperature 98.3 F 05/08/18 15:52 Pulse Rate 136 H 05/08/18 15:52 Respiratory Rate 28 H 05/08/18 15:52 Blood Pressure 112/62 05/08/18 15:52 Pulse Oximetry 86 L 05/08/18 15:52 Last Documented Vital Signs Temperature 98.3 F 05/08/18 15:52 Pulse Rate 121 H 05/08/18 16:01 Respiratory Rate 28 H 05/08/18 15:52 Blood Pressure 112/62 05/08/18 15:52 Pulse Oximetry 95 05/08/18 17:00 Critical Care Time Critical Care Time: Yes Total Critical Care Time: 60 Attestation: Aggregate critical care time was 60 minutes. Time to perform other separately billable procedures was not included in the critical care time. My time did not include minutes spent treating any other patients simultaneously or on activities that did not directly contribute to the patient's treatment. The services I provided to this patient were to treat and/or prevent clinically significant deterioration. I provided critical care services requiring my management, as noted below: Chart data review, documentation time, medication orders and management, vital sign assessments/reviewing monitor data, ordering and reviewing lab tests, ordering and interpreting/reviewing x-rays and diagnostic studies, care of the patient and discussion of the patient with the admitting physicians. Medical Decision Making MDM Narrative Medical decision making narrative: I requested a repeat temperature be performed to evaluate if the patient was febrile. Patient's initial vitals show tachycardia at 136, tachypnea 28, and hypoxemia of 86% on room air with an excellent Pleth wave. Please refer to my physical exam, these observations together show the patient to have moderate to severe respiratory failure hypoxemic kind and SIRS, patient will be stabilized with breathing treatments, IV fluids, immediate antibiotics (shortly after blood cultures are collected), ABG to see the how profoundly hypoxemia is currently on 4 L. Based on ABG results will provide pressure support with BiPAP. Based on the instability of his initial presentation the patient will require ICU admission, patient was found to have a 23,000 white count with a left shift of 84% neutrophilia. Patient was personally evaluated by RN IMMUNOLOGY Dr. HONG who stated that patient will not require transfer to [facility] Coagulation profile within normal limits Electrolytes are mild hyponatremia 131, bicarb of 18 which is low, elevated BUN of 24, creatinine elevation of 1.4, GFR decreased at 48, Negative first troponin though suspicious at 0.04 Normal liver enzymes Chest x-ray read by radiologist as chronic bibasilar changes Negative flu Medical Screen Exam Complete: Yes Emergency Medical Condition: Yes Differential Diagnosis Differential Diagnosis: pna versus pulmonary embolus versus pericardial effusion versus STEMI versus non-STEMI versus pulmonary edema 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s Medical records reviewed: Yes I reviewed the patient's medical records. Upon chart review the patient has a history of CABG, abdominal aortic aneurysm, cholecystectomy, catheterization with stenting, hypothyroidism, gout, restless leg syndrome, GERD, chronic recurrent pneumonia, CAD, hypertension, hyperlipidemia. Lab Data Result diagrams: 05/08/18 16:05 05/08/18 16:05 Lab Results 05/08/18 05/08/18 05/08/18 Range/Units 16:05 16:05 16:05 CBC w Diff Slide review pending WBC 23.7 H (4.0-11.0) th/mm3 RBC 5.07 (4.50-5.90) mil/mm3 Hgb 14.2 (13.0-17.0) gm/dL Hct 42.2 (39.0-51.0) % MCV 83.2 (80.0-100.0) fL MCH 28.0 (27.0-34.0) pg MCHC 33.6 (32.0-36.0) % RDW 14.3 (11.6-17.2) % Plt Count 207 (150-450) th/mm3 MPV 9.1 (7.0-11.0) fL Neut % (Auto) 84.4 H (16.0-70.0) % Lymph % (Auto) 7.4 L (9.0-44.0) % [place] % (Auto) 5.2 (0.0-8.0) % Eos % (Auto) 0.1 (0.0-4.0) % Baso % (Auto) 2.9 H (0.0-2.0) % Neut # (Auto) 20.0 H (1.8-7.7) th/mm3 Lymph # (Auto) 1.8 (1.0-4.8) th/mm3 [place] # (Auto) 1.2 H (0.0-0.9) th/mm3 Eos # (Auto) 0.0 (0.0-0.4) th/mm3 Baso # (Auto) 0.7 H (0.0-0.2) th/mm3 WBC Differential Manual diff final Seg Neuts % (Manual) 70 (16-70) % Band Neuts % (Manual) 11 H (0-6) % Lymphocytes % (Manual) 10 (9-44) % Monocytes % (Manual) 9 H (0-8) % Abs Neuts (Manual) 19.2 H (1.8-7.7) th/mm3 Differential Comment . Platelet Estimate Normal (Normal) Platelet Morphology Normal (Normal) RBC Morphology Normal (Normal) PT 12.1 H (9.8-11.6) sec INR 1.2 Ratio APTT 36.2 H (24.3-30.1) sec Puncture Site Patient Temperature O2 Saturation (90-100) % ABG pH (7.380-7.420) ABG pCO2 (38-42) mmHg ABG pO2 (61-120) mmHg ABG HCO3 (22-26) mmol/L ABG O2 Content (12.0-20.0) Vol % ABG Base Excess (-2-2) mmol/L ABG Methemoglobin (0-2) % Hector Test Hemoglobin (12.0-16.0) G/DL Carboxyhemoglobin (0-4) % O2 Delivery Device Liter Flow L/M Vent Setting Inspired O2 % Critical Value Sodium 131 L (136-145) meq/L Potassium 3.8 (3.5-5.1) meq/L Chloride 100 (98-107) meq/L Carbon Dioxide 18.2 L (21.0-32.0) meq/L Anion Gap 13 (5-15) meq/L BUN 24 H (7-18) mg/dL Creatinine 1.40 H (0.60-1.30) mg/dL Estimated GFR 48 L (>89) mL/min Random Glucose 110 H (74-106) mg/dL Lactic Acid (0.4-2.0) mmol/L Calcium 8.8 (8.5-10.1) mg/dL Total Bilirubin 0.8 (0.2-1.0) mg/dL AST 26 (15-37) U/L ALT 15 (12-78) U/L Alkaline Phosphatase 108 (45-117) U/L Total Creatine Kinase 190 (39-308) U/L CK-MB (CK-2) Less than 1.0 (0.5-3.6) ng/mL Troponin I 0.04 (0.02-0.05) ng/mL B-Natriuretic Peptide (0-100) pg/mL Total Protein 8.0 (6.4-8.2) g/dL Albumin 2.6 L (3.4-5.0) g/dL Ur Collection Type Urine Color (Yellw/Straw) Urine Clarity (Clear) Urine pH (5.0-8.5) Ur Specific [place] (1.002-1.035) Urine Protein (Neg-Trace) mg/dL Urine Glucose (UA) (Negative) mg/dL Urine Ketones (Negative) mg/dL Urine Occult Blood (Negative) Urine Nitrate (Negative) Urine Bilirubin (Negative) Urine Urobilinogen (Less than 2) mg/dL Ur Leukocyte Esterase (Negative) Urine RBC (0-3) /hpf Urine WBC (0-5) /hpf Ur Squamous Epith Cells (0-5) /hpf Ur Transition Epith Cell (None) /hpf Amorphous Sediment (None) /hpf Urine Bacteria (None) /hpf Coarse Granular Casts (None) /lpf Micro UA Comment Ur Microscopic Review Urine Culture Comments Urine Collection Time hours 05/08/18 05/08/18 05/08/18 Range/Units 16:05 16:05 16:30 CBC w Diff WBC (4.0-11.0) th/mm3 RBC (4.50-5.90) mil/mm3 Hgb (13.0-17.0) gm/dL Hct (39.0-51.0) % MCV (80.0-100.0) fL MCH (27.0-34.0) pg MCHC (32.0-36.0) % RDW (11.6-17.2) % Plt Count (150-450) th/mm3 MPV (7.0-11.0) fL Neut % (Auto) (16.0-70.0) % Lymph % (Auto) (9.0-44.0) % [place] % (Auto) (0.0-8.0) % Eos % (Auto) (0.0-4.0) % Baso % (Auto) (0.0-2.0) % Neut # (Auto) (1.8-7.7) th/mm3 Lymph # (Auto) (1.0-4.8) th/mm3 [place] # (Auto) (0.0-0.9) th/mm3 Eos # (Auto) (0.0-0.4) th/mm3 Baso # (Auto) (0.0-0.2) th/mm3 WBC Differential Seg Neuts % (Manual) (16-70) % Band Neuts % (Manual) (0-6) % Lymphocytes % (Manual) (9-44) % Monocytes % (Manual) (0-8) % Abs Neuts (Manual) (1.8-7.7) th/mm3 Differential Comment Platelet Estimate (Normal) Platelet Morphology (Normal) RBC Morphology (Normal) PT (9.8-11.6) sec INR Ratio APTT (24.3-30.1) sec Puncture Site Left radial Patient Temperature 98.6 O2 Saturation 90 (90-100) % ABG pH 7.50 H (7.380-7.420) ABG pCO2 21 L* (38-42) mmHg ABG pO2 57 L* (61-120) mmHg ABG HCO3 16 L* (22-26) mmol/L ABG O2 Content 17.5 (12.0-20.0) Vol % ABG Base Excess -6.2 L (-2-2) mmol/L ABG Methemoglobin 1.3 (0-2) % Hector Test Present Hemoglobin 13.9 (12.0-16.0) G/DL Carboxyhemoglobin 1.5 (0-4) % O2 Delivery Device Nasal cannula Liter Flow 4.00 L/M Vent Setting Inspired O2 % Critical Value Yes Sodium (136-145) meq/L Potassium (3.5-5.1) meq/L Chloride (98-107) meq/L Carbon Dioxide (21.0-32.0) meq/L Anion Gap (5-15) meq/L BUN (7-18) mg/dL Creatinine (0.60-1.30) mg/dL Estimated GFR (>89) mL/min Random Glucose (74-106) mg/dL Lactic Acid 3.1 H (0.4-2.0) mmol/L Calcium (8.5-10.1) mg/dL Total Bilirubin (0.2-1.0) mg/dL AST (15-37) U/L ALT (12-78) U/L Alkaline Phosphatase (45-117) U/L Total Creatine Kinase (39-308) U/L CK-MB (CK-2) (0.5-3.6) ng/mL Troponin I (0.02-0.05) ng/mL B-Natriuretic Peptide 120 H (0-100) pg/mL Total Protein (6.4-8.2) g/dL Albumin (3.4-5.0) g/dL Ur Collection Type Urine Color (Yellw/Straw) Urine Clarity (Clear) Urine pH (5.0-8.5) Ur Specific [place] (1.002-1.035) Urine Protein (Neg-Trace) mg/dL Urine Glucose (UA) (Negative) mg/dL Urine Ketones (Negative) mg/dL Urine Occult Blood (Negative) Urine Nitrate (Negative) Urine Bilirubin (Negative) Urine Urobilinogen (Less than 2) mg/dL Ur Leukocyte Esterase (Negative) Urine RBC (0-3) /hpf Urine WBC (0-5) /hpf Ur Squamous Epith Cells (0-5) /hpf Ur Transition Epith Cell (None) /hpf Amorphous Sediment (None) /hpf Urine Bacteria (None) /hpf Coarse Granular Casts (None) /lpf Micro UA Comment Ur Microscopic Review Urine Culture Comments Urine Collection Time hours 05/08/18 05/08/18 Range/Units 17:44 17:45 CBC w Diff WBC (4.0-11.0) th/mm3 RBC (4.50-5.90) mil/mm3 Hgb (13.0-17.0) gm/dL Hct (39.0-51.0) % MCV (80.0-100.0) fL MCH (27.0-34.0) pg MCHC (32.0-36.0) % RDW (11.6-17.2) % Plt Count (150-450) th/mm3 MPV (7.0-11.0) fL Neut % (Auto) (16.0-70.0) % Lymph % (Auto) (9.0-44.0) % [place] % (Auto) (0.0-8.0) % Eos % (Auto) (0.0-4.0) % Baso % (Auto) (0.0-2.0) % Neut # (Auto) (1.8-7.7) th/mm3 Lymph # (Auto) (1.0-4.8) th/mm3 [place] # (Auto) (0.0-0.9) th/mm3 Eos # (Auto) (0.0-0.4) th/mm3 Baso # (Auto) (0.0-0.2) th/mm3 WBC Differential Seg Neuts % (Manual) (16-70) % Band Neuts % (Manual) (0-6) % Lymphocytes % (Manual) (9-44) % Monocytes % (Manual) (0-8) % Abs Neuts (Manual) (1.8-7.7) th/mm3 Differential Comment Platelet Estimate (Normal) Platelet Morphology (Normal) RBC Morphology (Normal) PT (9.8-11.6) sec INR Ratio APTT (24.3-30.1) sec Puncture Site Left radial Patient Temperature 98.6 O2 Saturation 96 (90-100) % ABG pH 7.47 H (7.380-7.420) ABG pCO2 22 L* (38-42) mmHg ABG pO2 91 (61-120) mmHg ABG HCO3 16 L* (22-26) mmol/L ABG O2 Content 18.0 (12.0-20.0) Vol % ABG Base Excess -7.2 L (-2-2) mmol/L ABG Methemoglobin 1.3 (0-2) % Hector Test Present Hemoglobin 13.3 (12.0-16.0) G/DL Carboxyhemoglobin 1.2 (0-4) % O2 Delivery Device Bipap Liter Flow L/M Vent Setting [id number] Inspired O2 50 % Critical Value Yes Sodium (136-145) meq/L Potassium (3.5-5.1) meq/L Chloride (98-107) meq/L Carbon Dioxide (21.0-32.0) meq/L Anion Gap (5-15) meq/L BUN (7-18) mg/dL Creatinine (0.60-1.30) mg/dL Estimated GFR (>89) mL/min Random Glucose (74-106) mg/dL Lactic Acid (0.4-2.0) mmol/L Calcium (8.5-10.1) mg/dL Total Bilirubin (0.2-1.0) mg/dL AST (15-37) U/L ALT (12-78) U/L Alkaline Phosphatase (45-117) U/L Total Creatine Kinase (39-308) U/L CK-MB (CK-2) (0.5-3.6) ng/mL Troponin I (0.02-0.05) ng/mL B-Natriuretic Peptide (0-100) pg/mL Total Protein (6.4-8.2) g/dL Albumin (3.4-5.0) g/dL Ur Collection Type Cath Urine Color Fannie (Yellw/Straw) Urine Clarity Clear (Clear) Urine pH 5.5 (5.0-8.5) Ur Specific [place] Greater/equal 1.030 (1.002-1.035) Urine Protein 100 H (Neg-Trace) mg/dL Urine Glucose (UA) Negative (Negative) mg/dL Urine Ketones 15 H (Negative) mg/dL Urine Occult Blood Moderate H (Negative) Urine Nitrate Negative (Negative) Urine Bilirubin Negative (Negative) Urine Urobilinogen 0.2 (Less than 2) mg/dL Ur Leukocyte Esterase Negative (Negative) Urine RBC 51-189 H (0-3) /hpf Urine WBC 0-5 (0-5) /hpf Ur Squamous Epith Cells 0-5 (0-5) /hpf Ur Transition Epith Cell 1-5 H (None) /hpf Amorphous Sediment Moderate H (None) /hpf Urine Bacteria Few H (None) /hpf Coarse Granular Casts 1-3 H (None) /lpf Micro UA Comment Cath-culture ind Ur Microscopic Review Microscopic reviewed Urine Culture Comments Cath-cult indicated Urine Collection Time 1745 hours Imaging Data Radiologist's impression: Chest X-Ray 05/08/18 16:01 CONCLUSION: Status post median sternotomy. Lungs are grossly clear except for chronic bibasilar changes. ECG Data EKG Prior to Arrival: No Attestation: I personally reviewed and interpreted this ECG as follows: Prior ECG tracings: not available for review Interpretation: Sinus tachycardia, 122 bpm, right bundle branch block pattern, left anterior fascicular block pattern, LVH pattern noted, Discharge Plan Discharge Disposition Patient Disposition: Transfer To [facility] Discharge Condition Condition: Fair Discharge Details Diagnosis: Acute hypoxemic respiratory failure, SIRS (systemic inflammatory response syndrome) Physicians Team ED Provider: Pernell Sylvester Primary Care Provider: Jem Kaufman Attending Provider: Cordell Hong Status ED Status: Admitted Patient
[2018-05-08] MEDS ORDERED: Azithromycin Inj 500 MG in Sodium Chlor 0.9% Inj 250 ML IV.SIG STA (16:13)
[2018-05-08] MEDS ORDERED: Sod Chloride 0.9% Inj 1,000 ML IV.SIG ONE ×2 (16:16)
[2018-05-08 16:17] LABS: Baso # (Auto) 0.7 th/mm3 (0.0-0.2); Baso % (Auto) 2.9 % (0.0-2.0); Eos % (Auto) 0.1 % (0.0-4.0); Hematocrit 42.2 % (39.0-51.0); Hemoglobin 14.2 gm/dL (13.0-17.0); Lymph # (Auto) 1.8 th/mm3 (1.0-4.8); Lymph % (Auto) 7.4 % (9.0-44.0); Mean Corpuscular HGB Conc 33.6 % (32.0-36.0); Mean Corpuscular Volume 83.2 fL (80.0-100.0); Mean Platelet Volume 9.1 fL (7.0-11.0); Mono # (Auto) 1.2 th/mm3 (0.0-0.9); Mono % (Auto) 5.2 % (0.0-8.0); Neut % (Auto) 84.4 % (16.0-70.0); Platelet Count 207 th/mm3 (150-450); Red Blood Count 5.07 mil/mm3 (4.50-5.90); Red Cell Distribution Width 14.3 % (11.6-17.2); White Blood Count 23.7 th/mm3 (4.0-11.0)
[2018-05-08 16:24] LABS: Chloride 100 meq/L (98-107); Potassium 3.8 meq/L (3.5-5.1); Sodium 131 meq/L (136-145)
[2018-05-08 16:27] LABS: Calcium 8.8 mg/dL (8.5-10.1)
[2018-05-08 16:28] LABS: Albumin 2.6 g/dL (3.4-5.0); Anion Gap 13 meq/L (5-15); Blood Urea Nitrogen 24 mg/dL (7-18); Carbon Dioxide 18.2 meq/L (21.0-32.0); Glucose,Random 110 mg/dL (74-106)
[2018-05-08 16:31] LABS: Alanine Aminotransferase 15 U/L (12-78); Aspartate Aminotransferase 26 U/L (15-37); Glomerular Filtration Rate 48 mL/min (>89)
[2018-05-08 16:33] LABS: Activated Partial Thrombo Time 36.2 sec (24.3-30.1); INR 1.2 Ratio; Prothrombin Time 12.1 sec (9.8-11.6)
[2018-05-08 16:34] LABS: Alkaline Phosphatase 108 U/L (45-117); Creatine Kinase 190 U/L (39-308)
[2018-05-08 16:35] LABS: ABG Base Excess -6.2 mmol/L (-2-2); ABG PCO2 21 mmHg (38-42); ABG PO2 57 mmHg (61-120)
[2018-05-08 16:36] LABS: Troponin I 0.04 ng/mL (0.02-0.05)
[2018-05-08 16:38] LABS: Lymphocytes 10 % (9-44); Monocytes 9 % (0-8)
[2018-05-08 16:39] LABS: Platelet Estimate Normal (Normal); Platelet Morphology Normal (Normal); RBC Morphology Normal (Normal)
--- NOTE | 2018-05-08 17:13 | XR ---
EXAM DATE: 05/08/2018 5:09 PM EDT AGE/SEX: 87 years / Male INDICATIONS: Short of breath. CLINICAL DATA: This is the patient's subsequent encounter. Patient reports that signs and symptoms h ave been present for 1 day and indicates a pain score of 5/10. MEDICAL/SURGICAL HISTORY: None. None. COMPARISON: [facility] [place], CHEST SINGLE AP, 12/03/2017. . FINDINGS: A single AP view of the chest demonstrates the lungs to be symmetrically aerated without evidence of mass, infiltrate or effusion other than mild consolidation both lung bases which has been stable on m ultiple old studies probably chronic fibrosis. The cardiomediastinal contours are unremarkable. Oss eous structures are intact. S/p median sternotomy wires. CONCLUSION: Status post median sternotomy. Lungs are grossly clear except for chronic bibasilar changes. Electronically signed by: Angel Anne MD 05/08/2018 5:11 PM EDT
[2018-05-08] MEDS ORDERED: Acetaminophen 325 MG Tablet PO PRN (17:29)
[2018-05-08] MEDS ORDERED: Morphine Sulfate Inj 2 MG/ML Vial IV.PUSH PRN (17:29)
[2018-05-08] MEDS ORDERED: Bisacodyl 10 MG Supp RECTAL PRN (17:29)
[2018-05-08] MEDS ORDERED: Sod Chloride 0.9% Inj 1,000 ML IV.CONT SCH (17:30)
[2018-05-08] MEDS ORDERED: Magnesium Sulfate Inj 2 GM in Sodium Chlor 0.9% Inj 96 ML IV.SIG PRN (17:33)
[2018-05-08] MEDS ORDERED: Dextrose 50% in Water 50 ML Vial IV.PUSH PRN (17:33)
[2018-05-08] MEDS ORDERED: Magnesium Sulfate Inj 4 GM in Sodium Chlor 0.9% Inj 92 ML IV.SIG PRN (17:33)
[2018-05-08] MEDS ORDERED: Potassium Phosphate 500 MG Soluble Tablet PO PRN (17:33)
[2018-05-08] MEDS ORDERED: Potassium Chloride 25 MEQ Effervescent Tablet PO PRN (17:33)
[2018-05-08] MEDS ORDERED: Potassium Phosphate Inj 30 MMOL in Sodium Chlor 0.9% Inj 250 ML IV.SIG PRN (17:33)
[2018-05-08] MEDS ORDERED: Sodium Phosphate Inj 30 MMOL in Sodium Chlor 0.9% Inj 250 ML IV.SIG PRN (17:33)
[2018-05-08] MEDS ORDERED: Magnesium Oxide 400 MG Tablet PO PRN (17:33)
[2018-05-08] MEDS ORDERED: Potassium Chlor 40 mEq Premix 40 MEQ/100 ML PIGGYBACK IV.SIG PRN ×2 (17:33)
[2018-05-08] MEDS ORDERED: Potassium Chlor 20 mEq Premix 20 MEQ/100 ML PIGGYBACK IV.SIG PRN (17:33)
[2018-05-08 17:51] LABS: ABG Base Excess -7.2 mmol/L (-2-2); ABG PCO2 22 mmHg (38-42); ABG PO2 91 mmHg (61-120)
--- NOTE | 2018-05-08 17:55 | P.HPCC ---
History of Present Illness Service: Critical care medicine Primary Care Physician: Jem Kaufman MD Chief Complaint: Shortness of breath/weakness/falls History of Present Illness: This is an 87-year-old male. He is full code. Date of admission . Past medical history includes chronic recurrent pneumonia, atrial fibrillation currently in sinus tachycardia with a right bundle branch block, obstructive sleep apnea requiring CPAP/BiPAP, coronary artery disease status post CABG x5, essential hypertension, hyperlipidemia, hypothyroidism, gastroesophageal disease, restless leg syndrome, history of chronic aortic aneurysm, arthritis and gout. Patient has had multiple admissions for recurrent pneumonia. He has been seen by Dr. Magaña as an outpatient. He presents to [facility] with a 2-3-day history of recurrent falls , weakness and shortness of breath. On arrival, patient saturations were 86%. Chest x-ray revealed bilateral lower lobe chronic infiltrates left greater than right. CT pulmonary angiogram was ordered by the ED physician. He was noted to be in sinus tachycardia right bundle branch block which is old, leukocytosis 23,000, creatinine 1.4 which is new. Baseline appears to be around 1. Lactic acid 3.1. Patient received 1 L normal saline and cefepime and azithromycin in the ED. He is placed on BiPAP which he is on at night. The family states he is on settings of 11 at 35% Patient is remains tachypneic but he states that he does not feel like he is tiring out at the present time. Repeat blood gas revealed he is blowing off CO2 with PCO2 of 22. PH is 7.46. PO2 of 91 mmHg. Bicarbonate was 16. Base index was -7. - Diagnosis (1) Acute hypoxemic respiratory failure (2) SIRS (systemic inflammatory response syndrome) (3) Right bundle branch block (4) Sinus tachycardia (5) COPD (chronic obstructive pulmonary disease) (6) Paroxysmal atrial fibrillation (7) Coronary artery disease (8) Essential hypertension (9) Hyperlipidemia (10) Lactic acidosis (11) Gout (12) Osteoarthritis (13) Restless leg syndrome (14) Gastroesophageal reflux disease (15) Hypothyroidism (16) Leukocytosis (17) AAA (abdominal aortic aneurysm) (18) Acute kidney injury (19) Hyponatremia (20) Former tobacco use (21) Recurrent pneumonia Inpatient Certification: I certify that the inpatient services were ordered in accordance with Medicare regulations governing the order. This includes certification that hospital inpatient services are reasonable and necessary and in the case of services not specified as inpatient-only under 42 CFR 419.22(n), that they are appropriately provided as inpatient services in accordance to with the 2-midnight benchmark under 43 CFR 412.3(e) Estimated Total Length of Stay (Days): 5 Plans for Post Hospital Care: Not yet determined Review of Systems Constitutional: Reports anorexia, Reports weakness, Denies body ache(s), Denies chills, Denies headache(s) Eyes: Denies blind spots, Denies dry eyes Ears, Nose, Mouth, and Throat: Reports abnormal hearing, Reports bad breath, Reports poor balance, Denies nasal congestion, Denies post nasal drip, Denies throat swelling Cardiovascular: Reports rapid, pounding, or irregular heartbeat, Reports shortness of breath, Reports shortness of breath with activity, Denies chest pain, Denies generalized swelling, Denies leg swelling, Denies slow heart rate Respiratory: Reports cough, Reports excessive phlegm production, Reports shortness of breath, Reports shortness of breath with activity, Reports wheezing , Denies change in phlegm color, Denies coughing up blood Gastrointestinal: Denies abdominal pain, Denies heartburn, Denies nausea, Denies vomiting Genitourinary: Reports difficulty urinating, Denies urinary incontinence Musculoskeletal: Reports abnormal walking, Reports muscle weakness, Denies body aches, Denies neck pain Skin/Breast: Reports dry skin, Denies acne Neurologic: Reports abnormal hearing, Denies abnormal movements, Denies lack of coordination, Denies localized weakness Psychiatric: Denies abnormal sleep pattern, Denies anxiety, Denies irritability Endocrine: Denies cold intolerance, Denies excessive sweating Hematologic/Lymphatic: Denies easy bleeding Allergic/Immunologic: Denies GI upset with certain foods PMFSH - History History 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 - Medical History Medical History: Medical History (Last Updated 05/08/18 @ 18:27 by Cordell Clements MD) Abdominal aortic aneurysm Abnormality of gait due to impairment of balance Chronic pneumonia Coronary artery disease Essential hypertension Gastroesophageal reflux disease Gout History of atrial fibrillation History of cataract Hyperlipidemia Hypothyroidism Osteoarthritis Restless leg syndrome - Surgical History Surgical History: Surgical History (Last Updated 05/08/18 @ 18:27 by Cordell Clements MD) History of cholecystectomy History of coronary artery bypass graft History of coronary artery stent placement History of tonsillectomy - Family History Family History: Family History (Last Updated 05/08/18 @ 18:28 by Cordell Clements MD) Other Family history of coronary artery disease Family history pertaining to father Patient's mother is - Social History I have reviewed the patient's Social History: Yes - Tobacco History Second Hand Smoke Exposure: No Smoking Status: Former smoker - Alcohol History How Often Do You Have a Drink Containing Alcohol: Monthly or less - Substance Use History Substance History: No History of Abuse - Travel History Recent Travel in the [place] Within the Last 8 Weeks: No Recent Travel Out of the Country Within the Last 8 Weeks: No - Immunization History Tetanus Immunization: Unsure Medications and Allergies Active Medications: Active Medications Acetaminophen (Tylenol) 650 mg PO Q6H PRN PRN Reason: Fever >101f Hydrocodone Bitart/Acetaminophen ([place] 5/325) 1 tab PO Q4H PRN PRN Reason: PAIN SCALE 1 TO 5 Al Hydroxide/Mg Hydroxide (Milk Of Magnxiao Liq) 30 ml PO Q12H PRN PRN Reason: Mild Constipation Albuterol (Albuterol Neb (Vidya)) 2.5 mg NEB Q2HR NEB PRN PRN Reason: SHORTNESS OF BREATH/WHEEZING Albuterol (Duoneb Neb (Prn)) 1 ampul NEB Q4HR NEB VIDYA Bisacodyl (Dulcolax Supp) 10 mg RECTAL DAILY PRN PRN Reason: SEVERE CONSITIPATION Budesonide (Pulmocort Respule Neb) 0.5 mg NEB Q12HR NEB VIDYA Chlorhexidine Gluconate (Chlorhexidine 2% Cloth) 3 pack TOPICAL DAILY@0400 VIDYA Stop: 05/14/18 03:59 Chlorhexidine Gluconate (Chlorhexidine 2% Cloth) 3 pack TOPICAL DAILY@0400 PRN PRN Reason: Extra cloth needed Stop: 05/14/18 03:59 Dextrose (D50w Vial) 50 ml IV.PUSH UNSCH PRN PRN Reason: PER HYPOGLYCEMIA PROTOCOL Glucagon (Glucagon Inj) 1 mg OTHER PRN PRN PRN Reason: for Hypoglycemia Protocol Heparin Sodium (Porcine) (Heparin Inj) 5,000 units SQ Q12H VIDYA Azithromycin 500 mg/ Sodium (Chloride) 250 mls @ 250 mls/hr IV.SIG Q24H VIDYA Ceftriaxone Sodium 2,000 mg/ (Sodium Chloride) 100 mls @ 200 mls/hr IV.SIG Q24H VIDYA Sodium Chloride (Ns Inj) 1,000 mls @ 84 mls/hr IV.CONT .[id number] VIDYA Magnesium Sulfate 2 gm/ Sodium (Chloride) 100 mls @ 50 mls/hr IV.SIG UNSCH PRN PRN Reason: For Magnesium 1.2 - 1.6 mg/dL Potassium Chloride (Kcl 40 Meq Premix Inj) 40 meq in 100 mls @ 25 mls/hr IV.SIG Q2H PRN PRN Reason: For Potassium 2.8 - 3.2 mEq/L Potassium Chloride (Kcl 20 Meq Premix Inj) 20 meq in 100 mls @ 50 mls/hr IV.SIG Q2H PRN PRN Reason: For Potassium 3.3 - 3.5 mEq/L Potassium Chloride (Kcl 40 Meq Premix Inj) 40 meq in 100 mls @ 25 mls/hr IV.SIG UNSCH PRN PRN Reason: For Potassium 3.3 - 3.5 mEq/L Potassium Chloride (Kcl 20 Meq Premix Inj) 20 meq in 100 mls @ 50 mls/hr IV.SIG Q2H PRN PRN Reason: For Potassium 2.8 - 3.2 mEq/L Sodium Phosphate 30 mmol/ (Sodium Chloride) 260 mls @ 42 mls/hr IV.SIG UNSCH PRN PRN Reason: For Phosphorus < 2.5 mg/dL Magnesium Sulfate 4 gm/ Sodium (Chloride) 100 mls @ 50 mls/hr IV.SIG UNSCH PRN PRN Reason: For Magnesium 0.9 - 1.1 mg/dL Potassium Phosphate 30 mmol/ (Sodium Chloride) 260 mls @ 42 mls/hr IV.SIG UNSCH PRN PRN Reason: SEE LABEL COMMENTS Insulin Aspart (Novolog Insulin Correctional Sugar Inj) 0 unit SQ Q6HR VIDYA; Protocol Lactulose (Lactulose Liq) 30 ml PO DAILY PRN PRN Reason: SEVERE CONSITIPATION Magnesium Oxide (Mag-Ox) 800 mg PO UNSCH PRN PRN Reason: For Magnesium 1.2 - 1.6 mg/dL Methylprednisolone Sodium Succinate (Solumedrol Inj) 40 mg IV.PUSH Q8HR VIDYA Metronidazole (Flagyl) 500 mg PO Q8H VIDYA Morphine Sulfate (Morphine Inj) 2 mg IV.PUSH Q2H PRN PRN Reason: PAIN SCALE 6 TO 10 Ondansetron HCl (Zofran Inj) 4 mg IV.PUSH Q6H PRN PRN Reason: NAUSEA OR VOMITING Pantoprazole Sodium (Protonix) 40 mg PO DAILY [facility] Potassium Bicarb/Potassium Chloride (K-Lyte Cl Eff) 50 meq PO UNSCH PRN PRN Reason: For Potassium 3.3 - 3.5 mEq/L Potassium Phosphate (K-Phos Original) 2,000 mg PO Q4H PRN PRN Reason: Phosphorus Less Than 2.5 mg/dL Potassium Phosphate (K-Phos Original) 2,000 mg PO UNSCH PRN PRN Reason: SEE LABEL COMMENTS Senna/Docusate Sodium (Marianela-Colace) 1 tab PO BID [facility] Sennosides (Senokot) 17.2 mg PO Q12H PRN PRN Reason: Moderate Constipation Sodium Chloride (Ns Flush) 2 ml IV.FLUSH PRN PRN PRN Reason: FLUSH AFTER USING IV ACCESS Sodium Chloride (Ns Flush) 2 ml IV.FLUSH BID VIDYA Sodium Chloride (Ns Flush) 2 ml IV.FLUSH PRN PRN PRN Reason: FLUSH AFTER USING IV ACCESS Allergies Allergy/AdvReac Type Severity Reaction Status Date / Time peanut oil Allergy Severe Diarrhea Verified 05/08/18 15:57 peanut Allergy Intermediate Diarrhea Verified 12/02/17 02:42 Home Medications Medication Instructions Recorded Confirmed Type albuterol sulfate 1 puff INHALATION QID 05/08/18 05/08/18 History allopurinol 100 mg PO DAILY 05/08/18 05/08/18 History aspirin [Aspir-81] 81 mg PO DAILY 05/08/18 05/08/18 History cholecalciferol (vitamin D3) 1,000 unit PO DAILY 05/08/18 05/08/18 History [Vitamin D3] diltiazem HCl 120 mg PO DAILY 05/08/18 05/08/18 History dzgnrhykspa-pddecgvrf-udzbgytx 1 inh INHALATION DAILY 05/08/18 05/08/18 History [Trelegy Ellipta] indomethacin 25 mg PO BID PRN 05/08/18 05/08/18 History isosorbide mononitrate 60 mg PO DAILY 05/08/18 05/08/18 History levothyroxine 25 mcg PO DAILY 05/08/18 05/08/18 History omeprazole 20 mg PO DAILY 05/08/18 05/08/18 History pravastatin 80 mg PO DAILY 05/08/18 05/08/18 History ropinirole 0.5 mg PO TID PRN 05/08/18 05/08/18 History Results - Labs CBC & Chem 7: 05/08/18 16:05 05/08/18 16:05 Labs: Short CBC 05/08/18 Range/Units 16:05 WBC 23.7 H (4.0-11.0) th/mm3 Hgb 14.2 (13.0-17.0) gm/dL Hct 42.2 (39.0-51.0) % Plt Count 207 (150-450) th/mm3 BMP 05/08/18 16:05 Sodium 131 L Potassium 3.8 Chloride 100 Carbon Dioxide 18.2 L BUN 24 H Creatinine 1.40 H Calcium 8.8 Cardiac Enzymes 05/08/18 Range/Units 16:05 Total Creatine Kinase 190 (39-308) U/L CK-MB (CK-2) Less than 1.0 (0.5-3.6) ng/mL Troponin I 0.04 (0.02-0.05) ng/mL Liver Function 05/08/18 Range/Units 16:05 Total Bilirubin 0.8 (0.2-1.0) mg/dL AST 26 (15-37) U/L ALT 15 (12-78) U/L Alkaline Phosphatase 108 (45-117) U/L Albumin 2.6 L (3.4-5.0) g/dL - Imaging Impressions Chest X-Ray 05/08/18 16:01 CONCLUSION: Status post median sternotomy. Lungs are grossly clear except for chronic bibasilar changes. Exam Vital signs: Vital Signs 05/08/18 15:52 05/08/18 16:01 Temperature 98.3 F Pulse Rate 136 H 121 H Respiratory Rate 28 H Blood Pressure 112/62 Pulse Oximetry 86 L 96 Intake & Output 05/07/18 05/08/18 05/08/18 18:59 06:59 18:59 Intake Total 1100 / 1100 Balance 1100 / 1100 Weight 71.8 kg Intake: IV 1100 / 1100 Maxipime Inj 2,000 MG In NS Inj 100 / 100 100 ML @ 200 mls/hr IV.SIG STAT STA Rx#:[id number] NS Inj 1,000 ML @ Wide Open IV. 1000 / 1000 SIG BOLUS ONE Rx#:[id number] - Constitutional mild distress - Routine HEENT Exam Head: Present: normocephalic, atraumatic Eye: Present: EOMI, PERRL, normal accommodation. Absent: conjunctival icterus ENT: Present: mucous membranes moist, oropharynx clear - Routine Neck Exam Present: supple, full ROM. Absent: JVD, carotid bruit - Routine Chest/Breast/Axilla Exam Chest wall: Absent: tenderness Breast: Absent: tenderness Axillae: Absent: lymphadenopathy - Routine Respiratory Exam Present: accessory muscle use, respiratory distress, rhonchi, wheezes, diminished air movement - Routine Cardiovascular Exam Present: S1, S2, tachycardia. Absent: murmur - Routine Abdominal Exam Present: soft, normoactive bowel sounds. Absent: guarding - Routine Extremities Exam Absent: cyanosis, clubbing, edema - Routine Skin Exam Present: intact, dry. Absent: cyanosis - Routine Neurological Exam Present: alert, oriented X3, CN II-XII intact. Absent: sensory deficit, motor deficit Septic Shock Reassessment Septic shock perfusion: reassessment completed Caprini VTE Risk Assessment Caprini VTE Risk Assessment: Moderate/High Risk (score >= 2) Caprini Risk Assessment Model: Point Value = 1 Point Value = 2 Point Value = 3 Point Value = 5 Age 41-60 Minor surgery BMI > 25 kg/m2 Swollen legs Varicose veins or History of unexplained or recurrent spontaneous Oral contraceptives or hormone replacement Sepsis (< 1 month) Serious lung disease, including pneumonia (< 1 month) Abnormal pulmonary function Acute myocardial infarction Congestive heart failure (< 1 month) History of inflammatory bowel disease Medical patient at bed rest Age 61-74 Arthroscopic surgery Major open surgery (> 45 min) Laparoscopic surgery (> 45 min) Malignancy Confined to bed (> 72 hours) Immobilizing plaster cast Central venous access Age >= 75 History of VTE Family history of VTE Factor V Leiden Prothrombin [id number] Lupus anticoagulant Anticardiolipin antibodies Elevated serum homocysteine Heparin-induced thrombocytopenia Other congenital or acquired thrombophilia Stroke (< 1 month) Elective arthroplasty Hip, pelvis, or leg fracture Acute spinal cord injury (< 1 month) Prophylaxis Regimen: Total Risk Factor Score Risk Level Prophylaxis Regimen 0-1 Low Early ambulation 2 Moderate Order ONE of the following: *Sequential Compression Device (SCD) *Heparin 5000 units SQ BID 3-4 Higher Order ONE of the following medications: *Heparin 5000 units SQ TID *Enoxaparin/Lovenox 40 mg SQ daily (WT < 150 kg, CrCl > 30 mL/min) *Enoxaparin/Lovenox 30 mg SQ daily (WT < 150 kg, CrCl > 10-29 mL/min) *Enoxaparin/Lovenox 30 mg SQ BID (WT < 150 kg, CrCl > 30 mL/min) AND/OR *Sequential Compression Device (SCD) 5 or more Highest Order ONE of the following medications: *Heparin 5000 units SQ TID (Preferred with Epidurals) *Enoxaparin/Lovenox 40 mg SQ daily (WT < 150 kg, CrCl > 30 mL/min) *Enoxaparin/Lovenox 30 mg SQ daily (WT < 150 kg, CrCl > 10-29 mL/min) *Enoxaparin/Lovenox 30 mg SQ BID (WT < 150 kg, CrCl > 30 mL/min) AND *Sequential Compression Device (SCD) Assessment and Plan - Problem List (1) Acute hypoxemic respiratory failure Code(s): J96.01 - Acute respiratory failure with hypoxia Status: Acute (2) SIRS (systemic inflammatory response syndrome) Code(s): R65.10 - Systemic inflammatory response syndrome (SIRS) of non- infectious origin without acute organ dysfunction Status: Acute (3) Right bundle branch block Code(s): I45.10 - Unspecified right bundle-branch block Status: Chronic (4) Sinus tachycardia Code(s): R00.0 - Tachycardia, unspecified Status: Acute (5) COPD (chronic obstructive pulmonary disease) Code(s): J44.9 - Chronic obstructive pulmonary disease, unspecified Status: Chronic (6) Paroxysmal atrial fibrillation Code(s): I48.0 - Paroxysmal atrial fibrillation Status: Suspected (7) Coronary artery disease Code(s): I25.10 - Atherosclerotic heart disease of havasupai coronary artery without angina pectoris Status: Chronic (8) Essential hypertension Code(s): I10 - Essential (primary) hypertension Status: Chronic (9) Hyperlipidemia Code(s): E78.5 - Hyperlipidemia, unspecified Status: Chronic (10) Lactic acidosis Code(s): E87.2 - Acidosis Status: Acute (11) Gout Code(s): M10.9 - Gout, unspecified Status: Chronic (12) Osteoarthritis Code(s): M19.90 - Unspecified osteoarthritis, unspecified site Status: Chronic (13) Restless leg syndrome Code(s): G25.81 - Restless legs syndrome Status: Chronic (14) Gastroesophageal reflux disease Code(s): K21.9 - Gastro-esophageal reflux disease without esophagitis Status: Chronic (15) Hypothyroidism Code(s): E03.9 - Hypothyroidism, unspecified Status: Chronic (16) Leukocytosis Code(s): D72.829 - Elevated white blood cell count, unspecified Status: Acute (17) AAA (abdominal aortic aneurysm) Code(s): I71.4 - Abdominal aortic aneurysm, without rupture Status: Chronic (18) Acute kidney injury Code(s): N17.9 - Acute kidney failure, unspecified Status: Acute (19) Hyponatremia Code(s): E87.1 - Hypo-osmolality and hyponatremia Status: Acute (20) Former tobacco use Code(s): Z87.891 - Personal history of nicotine dependence Status: Chronic (21) Recurrent pneumonia Code(s): J18.9 - Pneumonia, unspecified organism Status: Chronic - Assessment and Plan Plan: Neuro/Psych: Restless leg syndrome Gait and balance disorder Acetaminophen 650 mg by mouth every 6 hours as needed fever Hydrocodone/acetaminophen 5/325 1 tablet every 4 hours as needed pain 1 through 5 Morphine sulfate 2 mg IV every 2 hours as needed pain 6 through 10 Ropinirole 0.5 mg 3 times daily for restless leg syndrome CT brain currently pending Physical therapy/occupational therapy evaluate and treat CV: Sinus tachycardia Right bundle branch block Coronary artery disease status post CABG x5 History of coronary artery stent Essential hypertension Hyperlipidemia Lactic acidosis History of paroxysmal atrial fibrillation currently in sinus tachycardia History of AAA EKG in the ED revealed sinus tachycardia. Rate 130s. Borderline first-degree AV block. Right bundle branch block. Initial troponin was 0.04 Home medication is diltiazem 120 mg daily for hypertension Resume aspirin 81 mg daily Holding isosorbide mononitrate 60 mg daily in light of borderline blood pressures Continue pravastatin 80 mg daily/home medication for dyslipidemia Echocardiogram 2017 revealed EF around 50-55%. Left atrial dilatation. Moderate MR. PA P 40-50 mmHg Resp: Acute respiratory failure/hypoxic hypercapnic History of chronic recurrent pneumonia History of COPD/tobaccoism Obstructive sleep apnea on nocturnal BiPAP Currently on BiPAP tolerating well at the present time 06/17 at 40% Chest x-ray revealed the lungs to be symmetrically aerated without evidence of mass, infiltrate or effusion other than mild consolidation both lung bases CT pulmonary angiogram ordered by ED physician. Low likelihood of pulmonary embolism. See infectious disease for antibiotics Resume fluticasone/umeclidinium/Vilanterol daily Albuterol/ipratropium aerosols every 4 hours with albuterol aerosols every 2 hours as needed dyspnea Methylprednisolone succinate 40 mg IV twice daily Follow-up on chest x-ray in a.m. 05/09 GI: Gastroesophageal reflux disease N.p.o. except for medications Patient is on omeprazole 20 mg daily at home. Continue pantoprazole 40 mg daily Docusate sodium/senna 1 tablet twice daily for bowel regimen : Straight catheterization as needed. ED physician ordered Juares catheter placement Endo: Hypothyroidism Gout Continue levothyroxine at 25 mcg daily. Check TSH in a.m. Sliding scale insulin with aspart insulin/low regimen with Accu-Cheks every 6 hours to maintain euglycemia Continue allopurinol 100 mg daily Renal: Acute kidney injury Check urine eosinophils, sodium and creatinine. Ultrasound ordered. Continue crystalloid resuscitation Avoid nephrotoxic medications monitor urine output Accurate I's and O's Recheck BMP in a.m. 05/09 Heme: Acute leukocytosis Monitor CBC daily. Follow trends No indication for transfusion of blood products at this time. Previously on apixaban but off due to frequent falls ID: Recurrent pneumonia Blood cultures x2, sputum ordered. Influenza a and B-. Urine Legionella pneumococcal antigen is pending. Mycoplasma and Chlamydia pending Currently on vancomycin, ceftriaxone, azithromycin and metronidazole FEN: Acute hyponatremia Replace electrolytes as clinically indicated per ICU electrolyte protocol Currently on normal saline at 84 cc an hour. Received 2.5 L crystalloid resuscitation in the ED MSK: Physical therapy evaluate and treat Continue cholecalciferol 1000 units daily Access -Utilize peripheral IV. Central line if indicated Prophylaxis -GI -pantoprazole -DVT -SCD/heparin subcu Level 3 admission Code Status: Full code Discussed Condition With: 2 sons at bedside. not available. Patient. Dr. Sylvester/emergency room physician. Respiratory therapist. ED RN. CARE plan discussed and all questions answered. (5) COPD (chronic obstructive pulmonary disease) Qualifiers: COPD type: unspecified COPD Qualified Code(s): J44.9 - Chronic obstructive pulmonary disease, unspecified (7) Coronary artery disease Qualifiers: Coronary Disease-Associated Artery/Lesion type: unspecified vessel or lesion type [place] vs. transplanted heart: havasupai heart Associated angina: without angina Qualified Code(s): I25.10 - Atherosclerotic heart disease of havasupai coronary artery without angina pectoris (9) Hyperlipidemia Qualifiers: Hyperlipidemia type: unspecified Qualified Code(s): E78.5 - Hyperlipidemia, unspecified (11) Gout Qualifiers: Gout site: unspecified site Gout etiology: unspecified cause Chronicity: unspecified Qualified Code(s): M10.9 - Gout, unspecified (12) Osteoarthritis Qualifiers: Osteoarthritis location: unspecified site Osteoarthritis type: unspecified Qualified Code(s): M19.90 - Unspecified osteoarthritis, unspecified site (14) Gastroesophageal reflux disease Qualifiers: Esophagitis presence: esophagitis presence not specified Qualified Code(s): K21.9 - Gastro-esophageal reflux disease without esophagitis (15) Hypothyroidism Qualifiers: Hypothyroidism type: unspecified Qualified Code(s): E03.9 - Hypothyroidism, unspecified (16) Leukocytosis Qualifiers: Leukocytosis type: unspecified Qualified Code(s): D72.829 - Elevated white blood cell count, unspecified (17) AAA (abdominal aortic aneurysm) Qualifiers: Presence of rupture: without rupture Qualified Code(s): I71.4 - Abdominal aortic aneurysm, without rupture
[2018-05-08 18:11] LABS: Bilirubin,Urine Negative (Negative); Clarity,Urine Clear (Clear); Glucose,Urine (UA) Negative (Negative); Leukocyte Esterase,Urine Negative (Negative); Nitrite,Urine Negative (Negative); PH,Urine 5.5 (5.0-8.5); Specific Gravity,Urine Greater/Equal 1.030 (1.002-1.035); Urobilinogen,Urine 0.2 mg/dL (Less than 2)
[2018-05-08 18:15] LABS: Collection Time,Urine 1745 hours; Color,Urine Amber (Yellw/Straw)
[2018-05-08 18:17] LABS: RBC,Urine 51-189 /hpf (0-3); Squamous Epithelial Cell,Urine 0-5 /hpf (0-5); WBC,Urine 0-5 /hpf (0-5)
[2018-05-08 18:18] LABS: Amorphous Sediment,Urine Moderate /hpf; Bacteria,Urine Few /hpf
[2018-05-08] MEDS ORDERED: Sodium Chlor 0.9% Inj 500 ML IV.SIG ONE (18:22)
[2018-05-08] MEDS ORDERED: Vancomycin Consult Pharmacy OTHER PRN (18:31)
[2018-05-08] MEDS ORDERED: Pharmacy Ordered Lab Info OTHER ONE (20:00)
[2018-05-08] MEDS: Insulin NovoLOG Aspart Correctional Sugar Inj SQ SCH (20:12)
[2018-05-08] MEDS: Heparin - SQ 10,000 UNITS/ML Vial SQ SCH (20:20)
[2018-05-08] MEDS: Vancomycin Inj 1,000 MG in Sodium Chlor 0.9% Inj 250 ML IV.SIG SCH (20:20)
--- NOTE | 2018-05-08 21:49 | CT ---
EXAM DATE: 05/08/2018 9:43 PM EDT AGE/SEX: 87 years / Male INDICATIONS: Flush. Weakness. Frequent falls. CLINICAL DATA: This is the patient's initial encounter. Patient reports that signs and symptoms have been present for 1 day and indicates a pain score of 2/10. MEDICAL/SURGICAL HISTORY: Gastroesophageal reflux disease. Abdominal aortic aneurysm. Chronic pneum onia. Coronary artery disease. Essential hypertension. Gout. Atrial fibrillation. Hypothyroidism. Ost eoarthritis. Restless leg syndrome. Cholecystectomy. Tonsillectomy. Coronary artery bypass graft. C oronary artery stent placement. RADIATION DOSE: 63.42 CTDI (mGy) COMPARISON: [facility], CT BRAIN W/O CONTRAST, 04/28/2017. . TECHNIQUE: CT of the head without contrast. Using automated exposure control and adjustment of the mA and/or kV according to patient size, radiation dose was kept as low as reasonably achievable to ob tain optimal diagnostic quality images. DICOM format image data is available electronically for revi ew and comparison. FINDINGS: Cerebrum: The ventricles are normal for age. No evidence of midline shift, mass lesion, hemorrhage or acute infarction. No extraaxial fluid collections are seen. Posterior Fossa: The cerebellum and brainstem are intact. The 4th ventricle is midline. The cerebe llopontine angle is unremarkable. Extracranial: The visualized portion of the orbits is intact. Skull: The calvaria is intact. No evidence of skull fracture. CONCLUSION: 1. No acute intracranial abnormalities. . Electronically signed by: Rosas Peña MD 05/08/2018 9:47 PM EDT
[2018-05-08] MEDS: metroNIDAZOLE 500 MG Tablet PO SCH (21:50)
[2018-05-08 21:58] LABS: Creatinine,Urine Random 266 mg/dL (27-300)
--- NOTE | 2018-05-08 21:59 | CT ---
EXAM DATE: 05/08/2018 9:43 PM EDT AGE/SEX: 87 years / Male INDICATIONS: Flush. Weakness. Possible embolism. CLINICAL DATA: This is the patient's initial encounter. Patient reports that signs and symptoms have been present for 1 day and indicates a pain score of 0/10. MEDICAL/SURGICAL HISTORY: Gastroesophageal reflux disease. Abdominal aortic aneurysm. Chronic pneum onia. Coronary artery disease. Essential hypertension. Gout. Atrial fibrillation. Hypothyroidism. Ost eoarthritis. Restless leg syndrome. Cholecystectomy. Tonsillectomy. Coronary artery bypass graft. C oronary artery stent placement. RADIATION DOSE: 34.63 CTDI (mGy) COMPARISON: [facility], CTA THORACIC ABDOMINAL AORTA W 3D RECON, 12/02/2017. . TECHNIQUE: Volumetric scanning was performed using a multi-row detector CT scanner during bolus infu lew of 75 ml Omnipaque 350 (iohexol) nonionic water-soluble contrast as a single exam dose. The rachel a was post processed with a variety of visualization algorithms including full volume maximum intensi ty projection and sliding thin slab reformation. Using automated exposure control and adjustment of the mA and/or kV according to patient size, radiation dose was kept as low as reasonably achievable t o obtain optimal diagnostic quality images. DICOM format image data is available electronically for review and comparison. FINDINGS: Contrast bolus is suboptimal for pulmonary artery evaluation. However no large filling defects are se en to suggest embolus. There is dense consolidation in both lungs especially in the lower lobes with multiple air bronchogra ms. This has worsened since December 02. There is worsening hilar and mediastinal adenopathy. Index AP win cass node measures 2.3 x 1.7 cm which is increased from previous measurement of 1.9 x 1 cm in November 2017 . There is a 2.1 cm mass or enlarged hilar lymph node on the right. Cannot exclude underlying neoplas m given the worsening adenopathy. Dense coronary calcifications. No significant pleural effusion. No acute findings in the upper abdome n. CONCLUSION: 1. Suboptimal exam but no definite evidence for pulmonary embolus. 2. Worsening bilateral lung consolidation especially posteriorly with air bronchograms. Also worseni ng adenopathy and possible 2.1 cm mass or enlarged lymph node in the right hilar region. Cannot exclu de underlying neoplasm. Electronically signed by: Rosas Peña MD 05/08/2018 9:58 PM EDT
[2018-05-08] MEDS ORDERED: Acetaminophen 650 MG Supp RECTAL PRN (22:54)
[2018-05-08] MEDS ORDERED: dilTIAZem Inj 125 MG in Sodium Chlor 0.9% Inj 100 ML IV.CONT PRN (22:58)
[2018-05-08] MEDS: MethylPREDNISolone Sod Succinate Inj 40 MG/ML Vial IV.PUSH SCH (23:00)
[2018-05-08] MEDS: dilTIAZem 30 MG Tablet PO SCH (23:02)
[2018-05-08] MEDS: Senna/Docusate Sodium 8.6/50 MG Tablet PO SCH (23:02)
[2018-05-09] MEDS: Insulin NovoLOG Aspart Correctional Sugar Inj SQ SCH ×4 (00:57→21:03)
[2018-05-09] MEDS ORDERED: Influenza (Quadrivalent) Vaccine 0.5 ML Syringe IM ONE (02:00)
[2018-05-09] MEDS ORDERED: Chlorhexidine Gluconate 2% 1 Pack (2 Cloths) TOPICAL PRN (04:00)
[2018-05-09 04:57] LABS: Baso % (Auto) 0.1 % (0.0-2.0); Hematocrit 35.9 % (39.0-51.0); Hemoglobin 12.1 gm/dL (13.0-17.0); Lymph # (Auto) 0.5 th/mm3 (1.0-4.8); Lymph % (Auto) 3.4 % (9.0-44.0); Mean Corpuscular HGB Conc 33.7 % (32.0-36.0); Mean Corpuscular Hemoglobin 28.4 pg (27.0-34.0); Mean Corpuscular Volume 84.2 fL (80.0-100.0); Mean Platelet Volume 9.2 fL (7.0-11.0); Mono # (Auto) 0.6 th/mm3 (0.0-0.9); Mono % (Auto) 3.6 % (0.0-8.0); Neut # (Auto) 14.4 th/mm3 (1.8-7.7); Neut % (Auto) 92.9 % (16.0-70.0); Platelet Count 150 th/mm3 (150-450); Red Blood Count 4.27 mil/mm3 (4.50-5.90); Red Cell Distribution Width 14.4 % (11.6-17.2); White Blood Count 15.5 th/mm3 (4.0-11.0)
[2018-05-09 05:06] LABS: Chloride 107 meq/L (98-107); Potassium 3.6 meq/L (3.5-5.1); Sodium 136 meq/L (136-145)
[2018-05-09 05:10] LABS: Activated Partial Thrombo Time 42.2 sec (24.3-30.1); INR 1.2 Ratio; Prothrombin Time 12.1 sec (9.8-11.6)
[2018-05-09 05:16] LABS: Alanine Aminotransferase 15 U/L (12-78); Albumin 2.1 g/dL (3.4-5.0); Alkaline Phosphatase 84 U/L (45-117); Anion Gap 13 meq/L (5-15); Aspartate Aminotransferase 27 U/L (15-37); Blood Urea Nitrogen 21 mg/dL (7-18); Calcium 7.9 mg/dL (8.5-10.1); Carbon Dioxide 16.1 meq/L (21.0-32.0); Glomerular Filtration Rate 57 mL/min (>89); Glucose,Random 141 mg/dL (74-106); Magnesium 1.7 mg/dL (1.5-2.5); Phosphorus 3.1 mg/dL (2.5-4.9); Total Protein 6.6 g/dL (6.4-8.2)
[2018-05-09] MEDS: MethylPREDNISolone Sod Succinate Inj 40 MG/ML Vial IV.PUSH SCH ×3 (05:30→21:06)
[2018-05-09] MEDS: Heparin - SQ 10,000 UNITS/ML Vial SQ SCH ×2 (05:30→18:22)
[2018-05-09] MEDS: Chlorhexidine Gluconate 2% 1 Pack (2 Cloths) TOPICAL SCH (05:30)
--- NOTE | 2018-05-09 06:12 | P.PNCC ---
Subjective Subjective Remarks/Hospital Course: This is an 87-year-old male. He is full code. Date of admission . Past medical history includes chronic recurrent pneumonia, atrial fibrillation currently in sinus tachycardia with a right bundle branch block, obstructive sleep apnea requiring CPAP/BiPAP, coronary artery disease status post CABG x5, essential hypertension, hyperlipidemia, hypothyroidism, gastroesophageal disease, restless leg syndrome, history of chronic aortic aneurysm, arthritis and gout. Patient has had multiple admissions for recurrent pneumonia. He has been seen by Dr. Magaña as an outpatient. He presents to [facility] with a 2-3-day history of recurrent falls , weakness and shortness of breath. On arrival, patient saturations were 86%. Chest x-ray revealed bilateral lower lobe chronic infiltrates left greater than right. CT pulmonary angiogram was ordered by the ED physician. He was noted to be in sinus tachycardia right bundle branch block which is old, leukocytosis 23,000, creatinine 1.4 which is new. Baseline appears to be around 1. Lactic acid 3.1. Patient received 1 L normal saline and cefepime and azithromycin in the ED. He is placed on BiPAP which he is on at night. The family states he is on settings of 11 at 35% Patient is remains tachypneic but he states that he does not feel like he is tiring out at the present time. Repeat blood gas revealed he is blowing off CO2 with PCO2 of 22. PH is 7.46. PO2 of 91 mmHg. Bicarbonate was 16. Base index was -7. SUBJECTIVE: 05/09: Started on diltiazem drip overnight. Will discontinue currently. T-max 101.9. Will attempt to wean off BiPAP this morning. CT pulmonary angiogram revealed bilateral lower lobe infiltrate. No central pulmonary bolus. CT brain revealed no acute intracranial findings. Modified barium swallow ordered this a.m. with speech therapy Objective Vital Signs / I&O: Vital Signs 05/08/18 15:52 05/08/18 16:01 05/08/18 16:30 Temperature 98.3 F Pulse Rate 136 H 121 H 120 H Respiratory Rate 28 H 22 Blood Pressure 112/62 Pulse Oximetry 86 L 96 05/08/18 17:00 05/08/18 17:20 05/08/18 17:29 Temperature Pulse Rate 130 H Respiratory Rate 34 H Blood Pressure 129/58 L Pulse Oximetry 95 97 96 05/08/18 18:20 05/08/18 18:50 05/08/18 19:20 Temperature Pulse Rate 130 H 120 H Respiratory Rate 30 H 30 H Blood Pressure 130/61 108/57 L Pulse Oximetry 95 97 05/08/18 19:22 05/08/18 19:50 05/08/18 20:00 Temperature Pulse Rate 119 H 124 H Respiratory Rate 36 H Blood Pressure 124/65 Pulse Oximetry 96 97 93 L 05/08/18 21:30 05/08/18 21:45 05/08/18 22:36 Temperature 101.3 F H Pulse Rate 124 H 126 H Respiratory Rate 28 H 40 H Blood Pressure 115/59 L 132/71 Pulse Oximetry 97 98 93 L 05/08/18 22:40 05/08/18 22:48 05/08/18 23:00 Temperature Pulse Rate 114 H 122 H Respiratory Rate 36 H 36 H Blood Pressure 135/70 133/68 Pulse Oximetry 93 L 92 L 91 L 05/08/18 23:07 05/08/18 23:30 05/08/18 23:36 Temperature Pulse Rate 124 H 107 H 124 H Respiratory Rate 37 H 40 H Blood Pressure 133/68 Pulse Oximetry 93 L 05/09/18 00:00 05/09/18 00:07 05/09/18 01:07 Temperature 101.9 F H Pulse Rate 112 H 114 H 108 H Respiratory Rate 33 H 36 H 38 H Blood Pressure 139/63 124/53 L Pulse Oximetry 90 L 93 L 93 L 05/09/18 01:40 05/09/18 02:07 05/09/18 03:07 Temperature 97.3 F L Pulse Rate 104 H 98 H Respiratory Rate 34 H 30 H Blood Pressure 125/63 121/59 L Pulse Oximetry 95 94 L 97 05/09/18 03:36 05/09/18 04:00 05/09/18 05:00 Temperature 97.9 F Pulse Rate 94 H 96 H 96 H Respiratory Rate 28 H 26 H 25 H Blood Pressure 106/68 106/68 Pulse Oximetry 97 97 05/09/18 05:20 05/09/18 06:03 Temperature Pulse Rate 92 H Respiratory Rate 27 H Blood Pressure 101/58 L Pulse Oximetry 94 L 96 Intake & Output 05/08/18 05/08/18 05/09/18 06:59 18:59 06:59 Intake Total 1100 / 1100 2100 / 2100 Output Total 485 / 485 Balance 1100 / 1100 1615 / 1615 Weight 71.8 kg 74.6 kg Intake: IV 1100 / 1100 2100 / 2100 Maxipime Inj 2,000 MG In NS Inj 100 / 100 100 ML @ 200 mls/hr IV.SIG STAT STA Rx#:[id number] NS Inj 1,000 ML @ Wide Open IV. 1000 / 1000 SIG BOLUS ONE Rx#:[id number] Vancomycin Inj 1,000 MG In NS 250 / 250 Inj 250 ML @ 250 mls/hr IV.SIG Q24H EMILIA Rx#:[id number] Flagyl 500 MG Inj 100 ML @ 100 100 / 100 mls/hr IV.SIG Q8H EMILIA Rx#: [id number] Output: Urine Amount (Catheter) 485 / 485 Indwelling Urethral Catheter 385 / 385 Straight 100 / 100 Other: Date of Last Bowel Movement 05/09/18 Weight On Admission 74 kg Result Diagrams: 05/09/18 04:20 05/09/18 04:20 Other Results: Microbiology 05/08/18 16:42 Nasal Wash Influenza Types A,B Antigen - Final Negative for FLU A and B antigen Infection due to influenza A or B cannot be ruled out since the antigen present in the sample may be below the detection limit of the test. Imaging: Head CT 05/08/18 00:00 CONCLUSION: 1. No acute intracranial abnormalities. . Chest X-Ray 05/08/18 16:01 CONCLUSION: Status post median sternotomy. Lungs are grossly clear except for chronic bibasilar changes. Chest CTA 05/08/18 16:02 CONCLUSION: 1. Suboptimal exam but no definite evidence for pulmonary embolus. 2. Worsening bilateral lung consolidation especially posteriorly with air bronchograms. Also worsening adenopathy and possible 2.1 cm mass or enlarged lymph node in the right hilar region. Cannot exclude underlying neoplasm. Chest X-Ray 05/09/18 06:00 CONCLUSION: Left greater than right basilar consolidation. Both sides are slightly worse in the interim. Objective Remarks: GENERAL: 87-year-old male currently resting in bed in no acute distress SKIN: Warm and dry. Few scattered ecchymoses bilateral upper extremities. HEAD: Atraumatic. Normocephalic. EYES: Pupils equal and round about 3 mm bilaterally and reactive. No scleral icterus. No injection or drainage. ENT: No nasal bleeding or discharge. Mucous membranes pink and moist. NECK: Trachea midline. No JVD. CARDIOVASCULAR: Regular rate and rhythm. S1, S2. No S4. Without murmur RESPIRATORY: Few coarse rhonchorous breath sounds patient bases bilaterally. No wheezing. GASTROINTESTINAL: Abdomen soft, non-tender, nondistended. Hypoactive bowel sounds appreciated. MUSCULOSKELETAL: Extremities without clubbing, cyanosis, or edema. NEUROLOGICAL: Awake and alert. No obvious cranial nerve deficits. Motor grossly within normal limits. Five out of 5 muscle strength in the arms and legs. Assessment and Plan - Problem List (1) Acute hypoxemic respiratory failure Code(s): J96.01 - Acute respiratory failure with hypoxia Status: Acute (2) SIRS (systemic inflammatory response syndrome) Code(s): R65.10 - Systemic inflammatory response syndrome (SIRS) of non- infectious origin without acute organ dysfunction Status: Acute (3) Right bundle branch block Code(s): I45.10 - Unspecified right bundle-branch block Status: Chronic (4) Sinus tachycardia Code(s): R00.0 - Tachycardia, unspecified Status: Acute (5) COPD (chronic obstructive pulmonary disease) Code(s): J44.9 - Chronic obstructive pulmonary disease, unspecified Status: Chronic (6) Paroxysmal atrial fibrillation Code(s): I48.0 - Paroxysmal atrial fibrillation Status: Suspected (7) Coronary artery disease Code(s): I25.10 - Atherosclerotic heart disease of [place] coronary artery without angina pectoris Status: Chronic (8) Essential hypertension Code(s): I10 - Essential (primary) hypertension Status: Chronic (9) Hyperlipidemia Code(s): E78.5 - Hyperlipidemia, unspecified Status: Chronic (10) Lactic acidosis Code(s): E87.2 - Acidosis Status: Acute (11) Gout Code(s): M10.9 - Gout, unspecified Status: Chronic (12) Osteoarthritis Code(s): M19.90 - Unspecified osteoarthritis, unspecified site Status: Chronic (13) Restless leg syndrome Code(s): G25.81 - Restless legs syndrome Status: Chronic (14) Gastroesophageal reflux disease Code(s): K21.9 - Gastro-esophageal reflux disease without esophagitis Status: Chronic (15) Hypothyroidism Code(s): E03.9 - Hypothyroidism, unspecified Status: Chronic (16) Leukocytosis Code(s): D72.829 - Elevated white blood cell count, unspecified Status: Acute (17) AAA (abdominal aortic aneurysm) Code(s): I71.4 - Abdominal aortic aneurysm, without rupture Status: Chronic (18) Acute kidney injury Code(s): N17.9 - Acute kidney failure, unspecified Status: Acute (19) Hyponatremia Code(s): E87.1 - Hypo-osmolality and hyponatremia Status: Acute (20) Former tobacco use Code(s): Z87.891 - Personal history of nicotine dependence Status: Chronic (21) Recurrent pneumonia Code(s): J18.9 - Pneumonia, unspecified organism Status: Chronic (22) Elevated troponin Code(s): R74.8 - Abnormal levels of other serum enzymes Status: Acute (23) Normocytic anemia Code(s): D64.9 - Anemia, unspecified Status: Acute (24) Cystitis Code(s): N30.90 - Cystitis, unspecified without hematuria Status: Acute (25) Hypokalemia Code(s): E87.6 - Hypokalemia Status: Acute - Assessment and Plan Plan: Neuro/Psych: Restless leg syndrome Gait and balance disorder Acetaminophen 650 mg by mouth every 6 hours as needed fever Hydrocodone/acetaminophen 5/325 1 tablet every 4 hours as needed pain 1 through 5 Morphine sulfate 2 mg IV every 2 hours as needed pain 6 through 10 Ropinirole 0.5 mg 3 times daily for restless leg syndrome CT brain revealed no acute intracranial findings Physical therapy/occupational therapy evaluate and treat CV: Elevated troponin Right bundle branch block Coronary artery disease status post CABG x5 History of coronary artery stent Essential hypertension Hyperlipidemia Lactic acidosis History of paroxysmal atrial fibrillation currently in sinus tachycardia History of AAA EKG in the ED revealed sinus tachycardia. Rate 130s. Borderline first-degree AV block. Right bundle branch block. Initial troponin was 0.04. Currently at 0.45. Trend until peaked We will check 2D echocardiogram. Will hold off on cardiology consultation as likely type II demand ischemia from tachycardia unless new acute cardiac findings Home medication is diltiazem 120 mg daily for hypertension. Currently 15 mg 4 times daily Resume aspirin 81 mg daily Holding isosorbide mononitrate 60 mg daily in light of borderline blood pressures Continue pravastatin 80 mg daily/home medication for dyslipidemia Echocardiogram 2017 revealed EF around 50-55%. Left atrial dilatation. Moderate MR. PAP 40-50 mmHg Serial lactates until cleared. Currently 2.7 Resp: Acute respiratory failure/hypoxic hypercapnic History of chronic recurrent pneumonia History of COPD/tobaccoism Obstructive sleep apnea on nocturnal BiPAP Currently on BiPAP tolerating well at the present time 12/ at 40% Chest x-ray revealed the lungs to be symmetrically aerated without evidence of mass, infiltrate or effusion other than mild consolidation both lung bases CT pulmonary angiogram revealed no central pulmonary. Bilateral lower lobe infiltrates/consolidation. Right hilar lymphadenopathy 2.1 cm maximum. See infectious disease for antibiotics Resume fluticasone/umeclidinium/Vilanterol daily Albuterol/ipratropium aerosols every 4 hours with albuterol aerosols every 2 hours as needed dyspnea Methylprednisolone succinate 40 mg IV twice daily Follow-up on chest x-ray in a.m. 05/09 revealed stable bilateral lower lobe infiltrates GI: Gastroesophageal reflux disease N.p.o. except for medications. If off BiPAP will start clear liquid diet. Modified barium swallow with speech therapy Patient is on omeprazole 20 mg daily at home. Continue pantoprazole 40 mg daily Docusate sodium/senna 1 tablet twice daily for bowel regimen : Straight catheterization as needed. ED physician ordered Juares catheter placement. Removed today Endo: Hypothyroidism Gout Continue levothyroxine at 25 mcg daily. Check TSH in a.m. -0.6 Sliding scale insulin with aspart insulin/low regimen with Accu-Cheks every 6 hours to maintain euglycemia Continue allopurinol 100 mg daily Renal: Acute kidney injury Check urine eosinophils, sodium and creatinine. Urine creatinine is downtrending currently 1.2. Recheck in a.m. 05/10 Ultrasound ordered. Continue crystalloid resuscitation Avoid nephrotoxic medications monitor urine output Accurate I's and O's Heme: Acute leukocytosis Normocytic anemia Monitor CBC daily. Follow trends No indication for transfusion of blood products at this time. Previously on apixaban but off due to frequent falls ID: Recurrent pneumonia Blood cultures x2, sputum ordered. Results pending Influenza a and B-. Urine Legionella pneumococcal antigen is pending. Mycoplasma and Chlamydia pending Currently on vancomycin, ceftriaxone, azithromycin and metronidazole. Day #2 FEN: Hypomagnesia acute hypokalemia Replace electrolytes as clinically indicated per ICU electrolyte protocol Currently on normal saline at 84 cc an hour. Will switch to one half normal saline at 50 cc an hour. Discontinue after 1 L. Received 2.5 L crystalloid resuscitation in the ED MSK: Physical therapy evaluate and treat/out of bed Continue cholecalciferol 1000 units daily Access -Utilize peripheral IV. Central line if indicated Prophylaxis -GI -pantoprazole -DVT -SCD/heparin subcu Level 3 follow-up (5) COPD (chronic obstructive pulmonary disease) Qualifiers: COPD type: unspecified COPD Qualified Code(s): J44.9 - Chronic obstructive pulmonary disease, unspecified (7) Coronary artery disease Qualifiers: Coronary Disease-Associated Artery/Lesion type: unspecified vessel or lesion type [place] vs. transplanted heart: [place] heart Associated angina: without angina Qualified Code(s): I25.10 - Atherosclerotic heart disease of [place] coronary artery without angina pectoris (9) Hyperlipidemia Qualifiers: Hyperlipidemia type: unspecified Qualified Code(s): E78.5 - Hyperlipidemia, unspecified (11) Gout Qualifiers: Gout site: unspecified site Gout etiology: unspecified cause Chronicity: unspecified Qualified Code(s): M10.9 - Gout, unspecified (12) Osteoarthritis Qualifiers: Osteoarthritis location: unspecified site Osteoarthritis type: unspecified Qualified Code(s): M19.90 - Unspecified osteoarthritis, unspecified site (14) Gastroesophageal reflux disease Qualifiers: Esophagitis presence: esophagitis presence not specified Qualified Code(s): K21.9 - Gastro-esophageal reflux disease without esophagitis (15) Hypothyroidism Qualifiers: Hypothyroidism type: unspecified Qualified Code(s): E03.9 - Hypothyroidism, unspecified (16) Leukocytosis Qualifiers: Leukocytosis type: unspecified Qualified Code(s): D72.829 - Elevated white blood cell count, unspecified (17) AAA (abdominal aortic aneurysm) Qualifiers: Presence of rupture: without rupture Qualified Code(s): I71.4 - Abdominal aortic aneurysm, without rupture
--- NOTE | 2018-05-09 06:33 | XR ---
EXAM DATE: 05/09/2018 6:08 AM EDT AGE/SEX: 87 years / Male INDICATIONS: Shortness of breath. CLINICAL DATA: This is the patient's subsequent encounter. Patient reports that signs and symptoms h ave been present for 2 days and indicates a pain score of Nonresponsive. MEDICAL/SURGICAL HISTORY: . Gastroesophageal reflux disease. Abdominal aortic aneurysm. Chronic pneumonia. Coronary artery disease. Essential hypertension. Gout. Atrial fibrillation. Hypothyroidis m. Osteoarthritis. Restless leg syndrome. . Cholecystectomy. Tonsillectomy. Coronary artery bypass graft. Coronary artery stent placement. COMPARISON: [facility], CHEST 1V SINGLE AP, 05/08/2018. . FINDINGS: Left greater than right basilar consolidation present and both sides are slightly worse in the interi m. A small left pleural effusion is likely. No pneumothorax. Heart size stable, upper limits of normal. Patient has had previous median sternotomy. CONCLUSION: Left greater than right basilar consolidation. Both sides are slightly worse in the interim. Electronically signed by: Tulio Llanes MD 05/09/2018 6:32 AM EDT
[2018-05-09] MEDS ORDERED: Sodium Chloride 0.45 % Inj 1,000 ML IV.CONT SCH (06:45)
[2018-05-09] MEDS ORDERED: Magnesium Sulfate Inj 4 GM in Dextrose 5% in Water Inj 100 ML IV.SIG ONE ×2 (08:00)
--- NOTE | 2018-05-09 08:05 | US ---
EXAM DATE: 05/09/2018 8:01 AM EDT AGE/SEX: 87 years / Male INDICATIONS: Elevated labs. CLINICAL DATA: This is the patient's initial encounter. Patient reports that signs and symptoms have been present for 1 day and indicates a pain score of 0/10. MEDICAL/SURGICAL HISTORY: Aneurysm, abdominal. Gastroesophageal reflux disease. Hypertension. Osteoporosis. Hyperlipidemia. A-fib. Pneumonia. CAD. Cholecystectomy. Tonsillectomy. Coronary art zulma bypass graft. COMPARISON: [facility], CTA THORACIC ABDOMINAL AORTA W 3D RECON, 12/02/2017. . MEASUREMENTS: Right Kidney:__12.9 x 4.5 x 6.1 cm Left Kidney:__13.5 x 5.0 x 5.6 cm FINDINGS: Right Kidney: Increased echotexture. No mass or hydronephrosis. Left Kidney: Increased echotexture. No mass or hydronephrosis. Bladder: Juares catheter is present. Bladder decompressed. Other: None. CONCLUSION: 1. Mildly echogenic without hydronephrosis or mass. Electronically signed by: Eddie Borrego MD 05/09/2018 8:04 AM EDT
[2018-05-09] MEDS: Potassium Chlor 10 mEq Premix 10 MEQ/100 ML PIGGYBACK IV.SIG SCH ×3 (08:35→12:50)
[2018-05-09] MEDS: Allopurinol 100 MG Tablet PO SCH (08:38)
[2018-05-09] MEDS: dilTIAZem 30 MG Tablet PO SCH ×4 (08:39→21:06)
[2018-05-09] MEDS: Senna/Docusate Sodium 8.6/50 MG Tablet PO SCH ×2 (08:39→21:07)
[2018-05-09] MEDS ORDERED: Non-Formulary Drug (Fluticasone-Umeclidin-Vilanter [Trelegy Ellipta] 1 INH) INHALATION SCH (09:00)
[2018-05-09] MEDS ORDERED: FLUTICASONE UMECLIDIN VILANTER INH SCH (09:00)
[2018-05-09] MEDS: metroNIDAZOLE 500 MG Tablet PO SCH ×2 (10:05→18:24)
[2018-05-09] MEDS ORDERED: Potassium Chlor 10 mEq Premix 10 MEQ/100 ML PIGGYBACK IV.SIG ONE (12:30)
[2018-05-09] MEDS: TRELEGY ELLIPTA INH SCH (13:32)
--- NOTE | 2018-05-09 15:52 | FL ---
EXAM DATE: 05/09/2018 3:03 PM EDT AGE/SEX: 87 years / Male INDICATIONS: Evaluate for dysphagia. CLINICAL DATA: This is the patient's initial encounter. Patient reports that signs and symptoms have been present for 1 day and indicates a pain score of 0/10. MEDICAL/SURGICAL HISTORY: Hypertension. None. COMPARISON: [facility], XR SPINE CERVICAL (MIN 4 VIEWS), 04/13/2016. . FLUORO TIME: 1.4 IMAGE COUNT: 0 FINDINGS: A modified barium swallow was performed with speech pathology. Patient was given a variety of liquids to swallow. For a full detailed report, see report by the speech pathologist. CONCLUSION: Please see detailed report by speech pathology. Electronically signed by: Jed Borrego MD 05/09/2018 3:51 PM EDT
--- NOTE | 2018-05-09 17:15 | ECG ---
Date Performed: 05/08/2018 Time Performed: 16:17:28 PTAGE: 87 years EKG: SINUS TACHYCARDIA RIGHT BUNDLE BRANCH BLOCK LEFT ANTERIOR FASCICULAR BLOCK LEFT VENTRICULAR HYPERTROPHY AND ST-T CHANGE When compared to previous tracing, right bundle branch block is New. ABN ORMAL ECG PREVIOUS TRACING : 12/02/2017 03.15 DOCTOR: Gerson Oropeza Interpretating Date/Time 05/09/2018 17:14:23
--- NOTE | 2018-05-09 18:19 | ECG ---
Date Performed: 05/08/2018 Time Performed: 17:54:48 PTAGE: 87 years EKG: SINUS TACHYCARDIA RIGHT BUNDLE BRANCH BLOCK LEFT ANTERIOR FASCICULAR BLOCK ABNORMAL ECG INT ERPRETATION BASED ON A DEFAULT AGE OF 40 YEARS PREVIOUS TRACING 05/08/18 @ 16.17 Since the previous tracing, no significant change note d DOCTOR: Gerson Oropeza Interpretating Date/Time 05/09/2018 18:17:44
[2018-05-09] MEDS: Azithromycin Inj 500 MG in Sodium Chlor 0.9% Inj 250 ML IV.SIG SCH (18:24)
--- NOTE | 2018-05-09 19:42 | ECHRPT ---
Indication: Heart Failure CONCLUSIONS Focused Bedside Echo Normal left ventricular size. Wall thickness is normal. The left ventricular systolic function is low normal with an estimated ejection fraction in the rang e of 50- 55%. . BP: 90 / 65 HR: Rhythm: MEASUREMENTS (Male / Female) Normal Values Technical Quality:Fair 2D ECHO LV Diastolic Diameter PLAX 4.8 cm 4.2 - 5.9 / 3.9 - 5.3 cm LV Systolic Diameter PLAX 3.7 cm IVS Diastolic Thickness 0.9 cm 0.6 - 1.0 / 0.6 - 0.9 cm LVPW Diastolic Thickness 0.9 cm 0.6 - 1.0 / 0.6 - 0.9 cm LV Relative Wall Thickness 0.4 RV Internal Dim ED PLAX 3.1 cm LVOT Diameter 2.2 cm Aortic Root Diameter 3.2 cm LA Systolic Diameter LX 4.0 cm 3.0 - 4.0 / 2.7 - 3.8 cm FINDINGS LEFT VENTRICLE Normal left ventricular size. Wall thickness is normal. The left ventricular systolic function is low normal with an estimated ejection fraction in the rang e of 50- 55%. RIGHT VENTRICLE Normal right ventricular size and systolic function. LEFT ATRIUM The left atrial size is mildly dilated. RIGHT ATRIUM The right atrial size is normal. ATRIAL SEPTUM Normal atrial septal thickness. AORTA The aortic root and proximal ascending aorta are normal in size on limited imaging. MITRAL VALVE Mitral annular calcification is present. AORTIC VALVE Trileaflet aortic valve. Aortic valve sclerosis is present. Calcified Leaflets. TRICUSPID VALVE Structurally normal tricuspid valve. No tricuspid valve stenosis or regurgitation. PULMONARY VALVE The pulmonary valve is not well visualized. VESSELS The inferior vena cava is normal in size. PERICARDIUM No pericardial effusion. Jigar Murphy MD (Electronically Signed) Final Date:09 May 2018 19:41
[2018-05-09] MEDS: Vancomycin Inj 1,000 MG in Sodium Chlor 0.9% Inj 250 ML IV.SIG SCH (21:07)
--- NOTE | 2018-05-09 21:50 | MB ---
cc: Nitin Magaña MD DATE: 05/09/2018 REASON FOR CONSULTATION: Pneumonia and aspiration. HISTORY OF PRESENT ILLNESS: This is an 87-year-old white male with a history of COPD and a history of recurrent pneumonias who was admitted through the emergency room with shortness of breath, cough, congestion and tachycardia. The patient has been weak and had several falls and was choking on his food. Upon arrival in the ER, his chest x-ray showed lower lobe infiltrates, more on the left side, and a CTA of the chest was done. The CTA of the chest showed consolidations in the lower lobes. His white count was markedly elevated and his EKG showed sinus tachycardia. The patient was started on IV antibiotics including cefepime and Zithromax and was placed on BiPAP overnight. The BiPAP was discontinued early this morning. He is feeling better and is coughing up very little thick mucus. The patient has no chest pain or hemoptysis and is not running any fevers. The O2 saturations have improved to 96% on nasal cannula at 4 liters. PAST MEDICAL HISTORY: Includes a history of COPD, history of aspiration pneumonia, history of atrial fibrillation, history of coronary artery disease and hypertension. He has hyperlipidemia, restless leg syndrome, sleep apnea and abdominal aortic aneurysm. The patient also has gout and a history of hypothyroidism and osteoarthritis. PAST SURGICAL HISTORY: Includes cholecystectomy, coronary artery bypass grafting x 4 and coronary artery stenting as well as tonsillectomy remotely. HABITS: The patient was a smoker of a pack per day for over 30 years. No significant alcohol use. FAMILY HISTORY: Significant for heart disease. ALLERGIES: NO DRUG ALLERGIES ARE LISTED. REVIEW OF SYSTEMS: Reveals the patient has weakness, dizziness. He is hard of hearing. He has chest congestion, cough, epigastric distress. No nausea, but has trouble swallowing. He has had some leg swelling. He denies any calf muscle pains. PHYSICAL EXAMINATION: GENERAL: This is a thinly built, elderly white male who is alert, pale and mildly dyspneic at rest. VITAL SIGNS: Blood pressure 110/70, heart rate 98, respirations 24, temperature 97.6. HEENT: Head is normocephalic. Pupils are reactive and equal. Tongue is moist. Nasal mucosa erythematous. Throat mildly injected. NECK: Supple. No bruits. No thyroid enlargement. No lymphadenopathy. CHEST: Distant breath sounds with occasional wheezes throughout both lung hayward and bibasilar crackles. HEART: Irregular S1 and S2 with no murmur. ABDOMEN: Soft, nontender. No organomegaly. The bowel sounds are active. EXTREMITIES: No edema. Peripheral pulses are diminished. NEUROLOGIC: Reflexes are 1+ with no gross motor deficits. Cranial nerves grossly intact. RECTAL: Deferred. SKIN: No lesions observed. IMPRESSION: 1. Aspiration pneumonia with hypoxemia. 2. Acute respiratory failure with hypercapnia, resolved. 3. 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 4. Paroxysmal atrial fibrillation. 5. Gastroesophageal reflux. 6. History of abdominal aortic aneurysm. PLAN: The patient will be maintained on O2 at 3-4 liters nasal cannula. Nebulized DuoNeb solution added q.i.d. and p.r.n. We will continue with antibiotic coverage including Rocephin 2 grams IV daily and Zithromax 500 mg IV daily as well as Flagyl 500 mg b.i.d. The patient's Legionella urine antigen is positive and we will submit his sputum as well for culture and Gram stain. Aspiration precautions with a pureed diet have been started, and the patient will have a followup chest x-ray in a.m. BiPAP will be placed at night at 12/5 cm and FiO2 of 30%. Thank you, Dr. Clements, for this consultation. I will follow the case with you. VVivian Magaña MD VJD/joby , 08:02 PM , 08:16 PM
[2018-05-10] MEDS: Insulin NovoLOG Aspart Correctional Sugar Inj SQ SCH ×4 (01:44→17:34)
[2018-05-10] MEDS: metroNIDAZOLE 500 MG Tablet PO SCH ×3 (02:47→17:42)
[2018-05-10] MEDS: Chlorhexidine Gluconate 2% 1 Pack (2 Cloths) TOPICAL SCH (05:33)
[2018-05-10 05:34] LABS: Baso # (Auto) 0.1 th/mm3 (0.0-0.2); Baso % (Auto) 0.4 % (0.0-2.0); Eos % (Auto) 0.1 % (0.0-4.0); Hematocrit 32.8 % (39.0-51.0); Lymph # (Auto) 0.4 th/mm3 (1.0-4.8); Lymph % (Auto) 2.3 % (9.0-44.0); Mean Corpuscular HGB Conc 33.5 % (32.0-36.0); Mean Corpuscular Hemoglobin 28.5 pg (27.0-34.0); Mean Corpuscular Volume 85.1 fL (80.0-100.0); Mean Platelet Volume 9.4 fL (7.0-11.0); Mono # (Auto) 0.4 th/mm3 (0.0-0.9); Mono % (Auto) 2.3 % (0.0-8.0); Neut # (Auto) 17.5 th/mm3 (1.8-7.7); Neut % (Auto) 94.9 % (16.0-70.0); Platelet Count 156 th/mm3 (150-450); Red Blood Count 3.86 mil/mm3 (4.50-5.90); Red Cell Distribution Width 14.8 % (11.6-17.2); White Blood Count 18.4 th/mm3 (4.0-11.0)
[2018-05-10 05:41] LABS: Chloride 108 meq/L (98-107); Potassium 3.2 meq/L (3.5-5.1); Sodium 138 meq/L (136-145)
[2018-05-10 05:45] LABS: Albumin 2.1 g/dL (3.4-5.0); Calcium 8.1 mg/dL (8.5-10.1)
[2018-05-10 05:46] LABS: Anion Gap 12 meq/L (5-15); Blood Urea Nitrogen 24 mg/dL (7-18); Carbon Dioxide 18.2 meq/L (21.0-32.0); Glucose,Random 145 mg/dL (74-106)
[2018-05-10 05:49] LABS: Alanine Aminotransferase 17 U/L (12-78); Aspartate Aminotransferase 29 U/L (15-37); Glomerular Filtration Rate 75 mL/min (>89)
[2018-05-10 05:57] LABS: Alkaline Phosphatase 75 U/L (45-117); Phosphorus 1.9 mg/dL (2.5-4.9); Total Protein 6.4 g/dL (6.4-8.2)
[2018-05-10] MEDS: Heparin - SQ 10,000 UNITS/ML Vial SQ SCH ×2 (06:11→18:34)
[2018-05-10] MEDS: MethylPREDNISolone Sod Succinate Inj 40 MG/ML Vial IV.PUSH SCH ×3 (06:11→23:28)
--- NOTE | 2018-05-10 06:14 | XR ---
EXAM DATE: 05/10/2018 5:31 AM EDT AGE/SEX: 87 years / Male INDICATIONS: Shortness of breath. CLINICAL DATA: This is the patient's subsequent encounter. Patient reports that signs and symptoms h ave been present for 3 days and indicates a pain score of Nonresponsive. MEDICAL/SURGICAL HISTORY: . Gastroesophageal reflux disease. Abdominal aortic aneurysm. Chronic pneumonia. Coronary artery disease. Essential hypertension. Gout. Atrial fibrillation. Hypothyroidis m. Osteoarthritis. Restless leg syndrome. . Cholecystectomy. Tonsillectomy. Coronary artery bypass graft. Coronary artery stent placement. COMPARISON: [facility], CHEST 1V SINGLE AP, 05/09/2018. . FINDINGS: Persistent mid and lower lung airspace opacities bilaterally again noted and not significantly change d. Small bilateral pleural effusions are likely. No pneumothorax. Heart size stable, within normal limits. Patient has had previous median sternotomy. CONCLUSION: Mild consolidation and small effusions at each lung base not significantly changed. Electronically signed by: Tulio Llanes MD 05/10/2018 6:13 AM EDT
--- NOTE | 2018-05-10 07:26 | P.PNCC ---
Subjective Subjective Remarks/Hospital Course: This is an 87-year-old male. He is full code. Date of admission . Past medical history includes chronic recurrent pneumonia, atrial fibrillation currently in sinus tachycardia with a right bundle branch block, obstructive sleep apnea requiring CPAP/BiPAP, coronary artery disease status post CABG x5, essential hypertension, hyperlipidemia, hypothyroidism, gastroesophageal disease, restless leg syndrome, history of chronic aortic aneurysm, arthritis and gout. Patient has had multiple admissions for recurrent pneumonia. He has been seen by Dr. Magaña as an outpatient. He presents to [facility] with a 2-3-day history of recurrent falls , weakness and shortness of breath. On arrival, patient saturations were 86%. Chest x-ray revealed bilateral lower lobe chronic infiltrates left greater than right. CT pulmonary angiogram was ordered by the ED physician. He was noted to be in sinus tachycardia right bundle branch block which is old, leukocytosis 23,000, creatinine 1.4 which is new. Baseline appears to be around 1. Lactic acid 3.1. Patient received 1 L normal saline and cefepime and azithromycin in the ED. He is placed on BiPAP which he is on at night. The family states he is on settings of 11 at 35% Patient is remains tachypneic but he states that he does not feel like he is tiring out at the present time. Repeat blood gas revealed he is blowing off CO2 with PCO2 of 22. PH is 7.46. PO2 of 91 mmHg. Bicarbonate was 16. Base index was -7. SUBJECTIVE: 05/09: Started on diltiazem drip overnight. Will discontinue currently. T-max 101.9. Will attempt to wean off BiPAP this morning. CT pulmonary angiogram revealed bilateral lower lobe infiltrate. No central pulmonary bolus. CT brain revealed no acute intracranial findings. Modified barium swallow ordered this a.m. with speech therapy 05/10: Resting comfortably. O2sats borderline on 6lit NC. Objective Vital Signs / I&O: Vital Signs 05/09/18 07:24 05/09/18 07:30 05/09/18 08:00 Temperature Pulse Rate 89 118 H Respiratory Rate 24 Blood Pressure Pulse Oximetry 93 L 95 95 05/09/18 08:02 05/09/18 09:02 05/09/18 10:01 Temperature Pulse Rate 116 H 124 H 112 H Respiratory Rate 35 H 34 H 31 H Blood Pressure 115/63 87/65 L 102/60 Pulse Oximetry 93 L 96 95 05/09/18 11:03 05/09/18 11:19 05/09/18 12:00 Temperature Pulse Rate 104 H 110 H 120 H Respiratory Rate 36 H 24 31 H Blood Pressure 97/64 L 101/52 L Pulse Oximetry 93 L 94 L 92 L 05/09/18 13:00 05/09/18 14:00 05/09/18 14:02 Temperature Pulse Rate 96 H 96 H Respiratory Rate 41 H 33 H Blood Pressure 96/54 L Pulse Oximetry 95 94 L 05/09/18 15:10 05/09/18 15:24 05/09/18 16:29 Temperature Pulse Rate 94 H 91 H 96 H Respiratory Rate 42 H 20 19 Blood Pressure 107/62 92/55 L Pulse Oximetry 96 05/09/18 17:42 05/09/18 18:00 05/09/18 19:00 Temperature 97.6 F Pulse Rate 96 H 96 H 92 H Respiratory Rate 31 H 44 H 26 H Blood Pressure 120/62 120/62 97/56 L Pulse Oximetry 95 92 L 98 05/09/18 19:52 05/09/18 20:00 05/09/18 21:00 Temperature 97.6 F Pulse Rate 90 90 92 H Respiratory Rate 28 H 30 H 30 H Blood Pressure 95/56 L 101/55 L Pulse Oximetry 95 97 94 L 05/09/18 22:01 05/09/18 23:00 05/09/18 23:16 Temperature Pulse Rate 96 H 90 96 H Respiratory Rate 33 H 36 H 26 H Blood Pressure 108/54 L 106/60 Pulse Oximetry 93 L 95 05/09/18 23:38 05/10/18 00:00 05/10/18 01:00 Temperature 98.3 F Pulse Rate 96 H 98 H Respiratory Rate 28 H 36 H Blood Pressure 106/60 111/62 Pulse Oximetry 95 94 L 95 05/10/18 01:23 05/10/18 02:00 05/10/18 03:24 Temperature Pulse Rate 92 H 88 Respiratory Rate 25 H 26 H Blood Pressure 104/58 L 96/52 L Pulse Oximetry 95 95 97 05/10/18 03:25 05/10/18 04:24 05/10/18 05:00 Temperature Pulse Rate 94 H 100 H 96 H Respiratory Rate 32 H 33 H 39 H Blood Pressure 100/56 L 103/58 L Pulse Oximetry 94 L 95 05/10/18 06:01 Temperature Pulse Rate 94 H Respiratory Rate 21 Blood Pressure 102/58 L Pulse Oximetry 95 Intake & Output 05/09/18 05/10/18 05/10/18 18:59 06:59 18:59 Intake Total 1308 / 1308 600 / 600 Output Total 300 / 300 350 / 350 Balance 1008 / 1008 250 / 250 Weight 73.1 kg Intake: IV 1308 / 1308 600 / 600 NS Inj 1,000 ML @ 84 mls/hr IV. 900 / 900 CONT .[id number] [facility] Rx#: [id number] Azithromycin Inj 500 MG In NS 250 / 250 Inj 250 ML @ 250 mls/hr IV.SIG Q24H [facility] Rx#:[id number] Magnesium Sulfate Inj 4 GM In 108 / 108 D5W Inj 100 ML @ 25 mls/hr IV. SIG ONCE ONE Rx#:[id number] KCl 10 mEq Premix Inj 10 meq In 300 / 300 100 ml @ 100 mls/hr IV.SIG ONCE ONE Rx#:[id number] Vancomycin Inj 1,000 MG In NS 250 / 250 Inj 250 ML @ 250 mls/hr IV.SIG Q24H [facility] Rx#:[id number] Rocephin Inj 2,000 MG In NS Inj 100 / 100 100 ML @ 200 mls/hr IV.SIG Q24H [facility] Rx#:[id number] Output: Urine 300 / 300 350 / 350 Other: Date of Last Bowel Movement 05/09/18 05/08/18 Result Diagrams: 05/10/18 05:00 05/10/18 05:00 Imaging: Head CT 05/08/18 00:00 CONCLUSION: 1. No acute intracranial abnormalities. . Chest X-Ray 05/08/18 16:01 CONCLUSION: Status post median sternotomy. Lungs are grossly clear except for chronic bibasilar changes. Chest CTA 05/08/18 16:02 CONCLUSION: 1. Suboptimal exam but no definite evidence for pulmonary embolus. 2. Worsening bilateral lung consolidation especially posteriorly with air bronchograms. Also worsening adenopathy and possible 2.1 cm mass or enlarged lymph node in the right hilar region. Cannot exclude underlying neoplasm. Abdomen/Bladder Ultrasound 05/09/18 00:00 CONCLUSION: 1. Mildly echogenic without hydronephrosis or mass. Videofluoroscopic Swallow 05/09/18 00:00 CONCLUSION: Please see detailed report by speech pathology. Chest X-Ray 05/09/18 06:00 CONCLUSION: Left greater than right basilar consolidation. Both sides are slightly worse in the interim. Chest X-Ray 05/10/18 06:00 CONCLUSION: Mild consolidation and small effusions at each lung base not significantly changed. Objective Remarks: GENERAL: 87-year-old male currently resting in bed in no acute distress SKIN: Warm and dry. Few scattered ecchymoses bilateral upper extremities. HEAD: Atraumatic. Normocephalic. EYES: Pupils equal and round about 3 mm bilaterally and reactive. No scleral icterus. No injection or drainage. ENT: No nasal bleeding or discharge. Mucous membranes pink and moist. NECK: Trachea midline. No JVD. CARDIOVASCULAR: Regular rate and rhythm. S1, S2. No S4. Without murmur RESPIRATORY: Few coarse rhonchorous breath sounds patient bases bilaterally. No wheezing. GASTROINTESTINAL: Abdomen soft, non-tender, nondistended. Hypoactive bowel sounds appreciated. MUSCULOSKELETAL: Extremities without clubbing, cyanosis, or edema. NEUROLOGICAL: Awake and alert. No obvious cranial nerve deficits. Motor grossly within normal limits. Five out of 5 muscle strength in the arms and legs. Assessment and Plan - Problem List (1) Acute hypoxemic respiratory failure Code(s): J96.01 - Acute respiratory failure with hypoxia Status: Acute (2) SIRS (systemic inflammatory response syndrome) Code(s): R65.10 - Systemic inflammatory response syndrome (SIRS) of non- infectious origin without acute organ dysfunction Status: Acute (3) Right bundle branch block Code(s): I45.10 - Unspecified right bundle-branch block Status: Chronic (4) Sinus tachycardia Code(s): R00.0 - Tachycardia, unspecified Status: Acute (5) COPD (chronic obstructive pulmonary disease) Code(s): J44.9 - Chronic obstructive pulmonary disease, unspecified Status: Chronic (6) Paroxysmal atrial fibrillation Code(s): I48.0 - Paroxysmal atrial fibrillation Status: Suspected (7) Coronary artery disease Code(s): I25.10 - Atherosclerotic heart disease of [place] coronary artery without angina pectoris Status: Chronic (8) Essential hypertension Code(s): I10 - Essential (primary) hypertension Status: Chronic (9) Hyperlipidemia Code(s): E78.5 - Hyperlipidemia, unspecified Status: Chronic (10) Lactic acidosis Code(s): E87.2 - Acidosis Status: Acute (11) Gout Code(s): M10.9 - Gout, unspecified Status: Chronic (12) Osteoarthritis Code(s): M19.90 - Unspecified osteoarthritis, unspecified site Status: Chronic (13) Restless leg syndrome Code(s): G25.81 - Restless legs syndrome Status: Chronic (14) Gastroesophageal reflux disease Code(s): K21.9 - Gastro-esophageal reflux disease without esophagitis Status: Chronic (15) Hypothyroidism Code(s): E03.9 - Hypothyroidism, unspecified Status: Chronic (16) Leukocytosis Code(s): D72.829 - Elevated white blood cell count, unspecified Status: Acute (17) AAA (abdominal aortic aneurysm) Code(s): I71.4 - Abdominal aortic aneurysm, without rupture Status: Chronic (18) Acute kidney injury Code(s): N17.9 - Acute kidney failure, unspecified Status: Acute (19) Hyponatremia Code(s): E87.1 - Hypo-osmolality and hyponatremia Status: Acute (20) Former tobacco use Code(s): Z87.891 - Personal history of nicotine dependence Status: Chronic (21) Recurrent pneumonia Code(s): J18.9 - Pneumonia, unspecified organism Status: Chronic (22) Elevated troponin Code(s): R74.8 - Abnormal levels of other serum enzymes Status: Acute (23) Normocytic anemia Code(s): D64.9 - Anemia, unspecified Status: Acute (24) Cystitis Code(s): N30.90 - Cystitis, unspecified without hematuria Status: Acute (25) Hypokalemia Code(s): E87.6 - Hypokalemia Status: Acute - Assessment and Plan Plan: Neuro/Psych: Restless leg syndrome Gait and balance disorder Acetaminophen 650 mg by mouth every 6 hours as needed fever Hydrocodone/acetaminophen 5/325 1 tablet every 4 hours as needed pain 1 through 5 Morphine sulfate 2 mg IV every 2 hours as needed pain 6 through 10 Ropinirole 0.5 mg 3 times daily for restless leg syndrome CT brain revealed no acute intracranial findings Physical therapy/occupational therapy evaluate and treat CV: Elevated troponin Right bundle branch block Coronary artery disease status post CABG x5 History of coronary artery stent Essential hypertension Hyperlipidemia Lactic acidosis History of paroxysmal atrial fibrillation currently in sinus tachycardia History of AAA EKG in the ED revealed sinus tachycardia. Rate 130s. Borderline first-degree AV block. Right bundle branch block. Initial troponin was 0.04. Currently at 0.45. Trend until peaked We will check 2D echocardiogram. Will hold off on cardiology consultation as likely type II demand ischemia from tachycardia unless new acute cardiac findings Home medication is diltiazem 120 mg daily for hypertension. Currently 15 mg 4 times daily Resume aspirin 81 mg daily Holding isosorbide mononitrate 60 mg daily in light of borderline blood pressures Continue pravastatin 80 mg daily/home medication for dyslipidemia Echocardiogram 2017 revealed EF around 50-55%. Left atrial dilatation. Moderate MR. PAP 40-50 mmHg Serial lactates until cleared. D5NS with KCL @ 42cc/hr Resp: Acute respiratory failure/hypoxic hypercapnic History of chronic recurrent pneumonia History of COPD/tobaccoism Obstructive sleep apnea on nocturnal BiPAP Currently on BiPAP tolerating well at the present time 06/17 at 40% Chest x-ray revealed the lungs to be symmetrically aerated without evidence of mass, infiltrate or effusion other than mild consolidation both lung bases CT pulmonary angiogram revealed no central pulmonary. Bilateral lower lobe infiltrates/consolidation. Right hilar lymphadenopathy 2.1 cm maximum. See infectious disease for antibiotics Resume fluticasone/umeclidinium/Vilanterol daily Albuterol/ipratropium aerosols every 4 hours with albuterol aerosols every 2 hours as needed dyspnea Methylprednisolone succinate 40 mg IV twice daily Follow-up on chest x-ray in a.m. 05/09 revealed stable bilateral lower lobe infiltrates GI: Gastroesophageal reflux disease N.p.o. except for medications. If off BiPAP will start clear liquid diet. Modified barium swallow with speech therapy Patient is on omeprazole 20 mg daily at home. Continue pantoprazole 40 mg daily Docusate sodium/senna 1 tablet twice daily for bowel regimen : Straight catheterization as needed. ED physician ordered Juares catheter placement. Removed today Endo: Hypothyroidism Gout Continue levothyroxine at 25 mcg daily. Check TSH in a.m. -0.6 Sliding scale insulin with aspart insulin/low regimen with Accu-Cheks every 6 hours to maintain euglycemia Continue allopurinol 100 mg daily Renal: Acute kidney injury Check urine eosinophils, sodium and creatinine. Urine creatinine is downtrending currently 1.2. Recheck in a.m. 05/10 Ultrasound ordered. Continue crystalloid resuscitation Avoid nephrotoxic medications monitor urine output Accurate I's and O's Heme: Acute leukocytosis Normocytic anemia Monitor CBC daily. Follow trends No indication for transfusion of blood products at this time. Previously on apixaban but off due to frequent falls ID: Recurrent pneumonia Legionella pneumonia Blood cultures x2, sputum ordered. Results pending Influenza a and B-. Urine pneumococcal Ag negative Urine Legionella antigen positive Mycoplasma and Chlamydia pending Currently on vancomycin, ceftriaxone, azithromycin and metronidazole. Day #2 FEN: Hypomagnesia acute hypokalemia Replace electrolytes as clinically indicated per ICU electrolyte protocol Currently on normal saline at 84 cc an hour. Will switch to one half normal saline at 50 cc an hour. Discontinue after 1 L. Received 2.5 L crystalloid resuscitation in the ED MSK: Physical therapy evaluate and treat/out of bed Continue cholecalciferol 1000 units daily Access -Utilize peripheral IV. Central line if indicated Prophylaxis -GI -pantoprazole -DVT -SCD/heparin subcu Level 3 follow-up (5) COPD (chronic obstructive pulmonary disease) Qualifiers: COPD type: unspecified COPD Qualified Code(s): J44.9 - Chronic obstructive pulmonary disease, unspecified (7) Coronary artery disease Qualifiers: Coronary Disease-Associated Artery/Lesion type: unspecified vessel or lesion type [place] vs. transplanted heart: [place] heart Associated angina: without angina Qualified Code(s): I25.10 - Atherosclerotic heart disease of [place] coronary artery without angina pectoris (9) Hyperlipidemia Qualifiers: Hyperlipidemia type: unspecified Qualified Code(s): E78.5 - Hyperlipidemia, unspecified (11) Gout Qualifiers: Gout site: unspecified site Gout etiology: unspecified cause Chronicity: unspecified Qualified Code(s): M10.9 - Gout, unspecified (12) Osteoarthritis Qualifiers: Osteoarthritis location: unspecified site Osteoarthritis type: unspecified Qualified Code(s): M19.90 - Unspecified osteoarthritis, unspecified site (14) Gastroesophageal reflux disease Qualifiers: Esophagitis presence: esophagitis presence not specified Qualified Code(s): K21.9 - Gastro-esophageal reflux disease without esophagitis (15) Hypothyroidism Qualifiers: Hypothyroidism type: unspecified Qualified Code(s): E03.9 - Hypothyroidism, unspecified (16) Leukocytosis Qualifiers: Leukocytosis type: unspecified Qualified Code(s): D72.829 - Elevated white blood cell count, unspecified (17) AAA (abdominal aortic aneurysm) Qualifiers: Presence of rupture: without rupture Qualified Code(s): I71.4 - Abdominal aortic aneurysm, without rupture
[2018-05-10] MEDS ORDERED: KCL 20 mEq/D5W/NaCl 0.9% Inj 1,000 ML IV.CONT SCH (08:00)
[2018-05-10] MEDS: Senna/Docusate Sodium 8.6/50 MG Tablet PO SCH ×2 (08:34→20:33)
[2018-05-10] MEDS: dilTIAZem 30 MG Tablet PO SCH ×4 (08:34→23:28)
[2018-05-10] MEDS: Allopurinol 100 MG Tablet PO SCH (08:35)
[2018-05-10] MEDS ORDERED: Influenza (Quadrivalent) Vaccine 0.5 ML Syringe IM ONE (10:45)
[2018-05-10] MEDS: TRELEGY ELLIPTA INH SCH (10:52)
[2018-05-10] MEDS: Potassium Chlor 20 mEq Premix 20 MEQ/100 ML PIGGYBACK IV.SIG PRN ×3 (10:53→15:32)
[2018-05-10] MEDS: Azithromycin Inj 500 MG in Sodium Chlor 0.9% Inj 250 ML IV.SIG SCH (18:30)
--- NOTE | 2018-05-10 19:43 | P.PN ---
Subjective Interval history: He is better. On O2 5 L. Desats easily. Used BIPAP last PM but gets confused at Nite Physical Exam Vital signs: Vital Signs 05/09/18 19:52 05/09/18 20:00 05/09/18 21:00 Temperature 97.6 F Pulse Rate 90 90 92 H Respiratory Rate 28 H 30 H 30 H Blood Pressure 95/56 L 101/55 L Pulse Oximetry 95 97 94 L 05/09/18 22:01 05/09/18 23:00 05/09/18 23:16 Temperature Pulse Rate 96 H 90 96 H Respiratory Rate 33 H 36 H 26 H Blood Pressure 108/54 L 106/60 Pulse Oximetry 93 L 95 05/09/18 23:38 05/10/18 00:00 05/10/18 01:00 Temperature 98.3 F Pulse Rate 96 H 98 H Respiratory Rate 28 H 36 H Blood Pressure 106/60 111/62 Pulse Oximetry 95 94 L 95 05/10/18 01:23 05/10/18 02:00 05/10/18 03:24 Temperature Pulse Rate 92 H 88 Respiratory Rate 25 H 26 H Blood Pressure 104/58 L 96/52 L Pulse Oximetry 95 95 97 05/10/18 03:25 05/10/18 04:24 05/10/18 05:00 Temperature Pulse Rate 94 H 100 H 96 H Respiratory Rate 32 H 33 H 39 H Blood Pressure 100/56 L 103/58 L Pulse Oximetry 94 L 95 05/10/18 06:01 05/10/18 07:01 05/10/18 07:42 Temperature Pulse Rate 94 H 94 H 92 H Respiratory Rate 21 27 H 16 Blood Pressure 102/58 L Pulse Oximetry 95 90 L 94 L 05/10/18 08:00 05/10/18 09:00 05/10/18 09:08 Temperature Pulse Rate 100 H 98 H 100 H Respiratory Rate 36 H 31 H 32 H Blood Pressure 100/60 Pulse Oximetry 93 L 91 L 91 L 05/10/18 10:00 05/10/18 11:00 05/10/18 12:11 Temperature Pulse Rate 96 H 100 H 94 H Respiratory Rate 30 H 47 H 39 H Blood Pressure 105/64 101/56 L Pulse Oximetry 91 L 89 L 88 L 05/10/18 13:58 05/10/18 14:01 05/10/18 16:59 Temperature Pulse Rate 87 88 87 Respiratory Rate 15 40 H 15 Blood Pressure 91/53 L Pulse Oximetry 93 L Intake & Output 05/10/18 05/10/18 05/11/18 06:59 18:59 06:59 Intake Total 600 / 600 2110 / 2110 350 / 350 Output Total 350 / 350 200 / 200 Balance 250 / 250 1910 / 1910 350 / 350 Weight 73.1 kg Intake: IV 600 / 600 1510 / 1510 350 / 350 1/2 Normal Saline Inj 1,000 ML 950 / 950 @ 50 mls/hr IV.CONT .Q20H [facility] Rx#:[id number] Azithromycin Inj 500 MG In NS 250 / 250 250 / 250 Inj 250 ML @ 250 mls/hr IV.SIG Q24H [facility]ILIA Rx#:[id number] KCl 20 mEq Premix Inj 20 meq In 300 / 300 100 ml @ 50 mls/hr IV.SIG Q2H PRN Rx#:[id number] Sodium Phosphate Inj 30 MMOL In 260 / 260 NS Inj 250 ML @ 42 mls/hr IV. SIG UNSCH PRN Rx#:[id number] Vancomycin Inj 1,000 MG In NS 250 / 250 Inj 250 ML @ 250 mls/hr IV.SIG Q24H EMILIA Rx#:[id number] Rocephin Inj 2,000 MG In NS Inj 100 / 100 100 / 100 100 ML @ 200 mls/hr IV.SIG Q24H EMILIA Rx#:[id number] Oral 600 / 600 Output: Urine 350 / 350 200 / 200 Other: Date of Last Bowel Movement 05/08/18 05/08/18 GENERAL: Elderly W/M alert pale.No Distress. SKIN: Warm and dry. HEAD: Atraumatic. Normocephalic. EYES: Pupils equal and round. No scleral icterus. No injection or drainage. ENT: No nasal bleeding or discharge. Mucous membranes pink and moist. NECK: Trachea midline. No JVD. CARDIOVASCULAR: Regular rate and rhythm. RESPIRATORY: No accessory muscle use. Basal crackles,and wheeze. Breath sounds equal bilaterally. GASTROINTESTINAL: Abdomen soft, non-tender, nondistended. Hepatic and splenic margins not palpable. MUSCULOSKELETAL: Extremities without clubbing, cyanosis, or edema. No obvious deformities. NEUROLOGICAL: Awake and alert. No obvious cranial nerve deficits. Motor grossly within normal limits. Five out of 5 muscle strength in the arms and legs. Normal speech. PSYCHIATRIC: Appropriate mood and affect; insight and judgment normal. - Urinary Catheter Management Indwelling Urethral Catheter Cath placed during this visit: yes, but has since been removed by the nurse Reason for continuing: Not indwelling catheter Insertion date: 05/09/18 Insertion time: 17:45 Removal date: 05/09/18 Removal time: 12:45 Straight Cath placed during this visit: no Reason for continuing: Not indwelling catheter Results - Labs CBC & Chem 7: 05/10/18 05:00 05/10/18 05:00 Laboratory Results - last 24 hr 05/09/18 05/09/18 05/09/18 20:30 22:04 22:54 CBC w Diff WBC RBC Hgb Hct MCV MCH MCHC RDW Plt Count MPV Neut % (Auto) Lymph % (Auto) [place] % (Auto) Eos % (Auto) Baso % (Auto) Neut # (Auto) Lymph # (Auto) [place] # (Auto) Eos # (Auto) Baso # (Auto) WBC Differential Differential Comment Sodium Potassium Chloride Carbon Dioxide Anion Gap BUN Creatinine Estimated GFR POC Glucose 166 H Random Glucose Lactic Acid 2.4 H Calcium Phosphorus Magnesium Total Bilirubin AST ALT Alkaline Phosphatase Troponin I 0.13 H Total Protein Albumin 05/10/18 05/10/18 05/10/18 01:42 05:00 05:00 CBC w Diff Auto diff final WBC 18.4 H RBC 3.86 L Hgb 11.0 L Hct 32.8 L MCV 85.1 MCH 28.5 MCHC 33.5 RDW 14.8 Plt Count 156 MPV 9.4 Neut % (Auto) 94.9 H Lymph % (Auto) 2.3 L [place] % (Auto) 2.3 Eos % (Auto) 0.1 Baso % (Auto) 0.4 Neut # (Auto) 17.5 H Lymph # (Auto) 0.4 L [place] # (Auto) 0.4 Eos # (Auto) 0.0 Baso # (Auto) 0.1 WBC Differential . Differential Comment . Sodium 138 Potassium 3.2 L Chloride 108 H Carbon Dioxide 18.2 L Anion Gap 12 BUN 24 H Creatinine 0.95 Estimated GFR 75 L POC Glucose 127 H Random Glucose 145 H Lactic Acid Calcium 8.1 L Phosphorus 1.9 L D Magnesium 2.0 Total Bilirubin 0.4 AST 29 ALT 17 Alkaline Phosphatase 75 Troponin I 0.10 H Total Protein 6.4 Albumin 2.1 L 05/10/18 05/10/18 05/10/18 05:00 06:13 07:52 CBC w Diff WBC RBC Hgb Hct MCV MCH MCHC RDW Plt Count MPV Neut % (Auto) Lymph % (Auto) [place] % (Auto) Eos % (Auto) Baso % (Auto) Neut # (Auto) Lymph # (Auto) [place] # (Auto) Eos # (Auto) Baso # (Auto) WBC Differential Differential Comment Sodium Potassium Chloride Carbon Dioxide Anion Gap BUN Creatinine Estimated GFR POC Glucose 160 H 136 H Random Glucose Lactic Acid 2.5 H Calcium Phosphorus Magnesium Total Bilirubin AST ALT Alkaline Phosphatase Troponin I Total Protein Albumin 05/10/18 05/10/18 12:11 17:17 CBC w Diff WBC RBC Hgb Hct MCV MCH MCHC RDW Plt Count MPV Neut % (Auto) Lymph % (Auto) [place] % (Auto) Eos % (Auto) Baso % (Auto) Neut # (Auto) Lymph # (Auto) [place] # (Auto) Eos # (Auto) Baso # (Auto) WBC Differential Differential Comment Sodium Potassium Chloride Carbon Dioxide Anion Gap BUN Creatinine Estimated GFR POC Glucose 140 H 161 H Random Glucose Lactic Acid Calcium Phosphorus Magnesium Total Bilirubin AST ALT Alkaline Phosphatase Troponin I Total Protein Albumin Microbiology 05/08/18 16:10 Blood - Peripheral Aerobic Blood Culture - Preliminary No growth in 2 days 05/08/18 16:10 Blood - Peripheral Anaerobic Blood Culture - Preliminary No growth in 2 days 05/08/18 16:05 Blood - Peripheral Aerobic Blood Culture - Preliminary No growth in 2 days 05/08/18 16:05 Blood - Peripheral Anaerobic Blood Culture - Preliminary No growth in 2 days 05/08/18 17:45 Catheterized Urine Urine Culture - Final No growth in 48 hours - Imaging Impressions Chest X-Ray 05/10/18 06:00 CONCLUSION: Mild consolidation and small effusions at each lung base not significantly changed. Assessment and Plan - Assessment (1) Aspiration pneumonia Code(s): J69.0 - Pneumonitis due to inhalation of food and vomit Status: Acute (2) Acute hypoxemic respiratory failure Code(s): J96.01 - Acute respiratory failure with hypoxia Status: Acute (3) SIRS (systemic inflammatory response syndrome) Code(s): R65.10 - Systemic inflammatory response syndrome (SIRS) of non- infectious origin without acute organ dysfunction Status: Acute (4) Right bundle branch block Code(s): I45.10 - Unspecified right bundle-branch block Status: Chronic (5) Sinus tachycardia Code(s): R00.0 - Tachycardia, unspecified Status: Acute (6) COPD (chronic obstructive pulmonary disease) Code(s): J44.9 - Chronic obstructive pulmonary disease, unspecified Status: Chronic (7) Paroxysmal atrial fibrillation Code(s): I48.0 - Paroxysmal atrial fibrillation Status: Suspected (8) Coronary artery disease Code(s): I25.10 - Atherosclerotic heart disease of [place] coronary artery without angina pectoris Status: Chronic (9) Essential hypertension Code(s): I10 - Essential (primary) hypertension Status: Chronic (10) Hypothyroidism Code(s): E03.9 - Hypothyroidism, unspecified Status: Chronic (11) Acute kidney injury Code(s): N17.9 - Acute kidney failure, unspecified Status: Acute (12) Normocytic anemia Code(s): D64.9 - Anemia, unspecified Status: Acute - Plan 1. Cont antibiotics Rocephin , Zithro Flagyl 2. Wean O2 to 4L. 3. BIPAP 12/5 cm at HS if tolerated. 4. Duoneb nebs qid prn 5. CXR ,CBC in am. 6. Solumderol 40 mg IV Q8H (6) COPD (chronic obstructive pulmonary disease) Qualifiers: COPD type: unspecified COPD Qualified Code(s): J44.9 - Chronic obstructive pulmonary disease, unspecified (8) Coronary artery disease Qualifiers: Coronary Disease-Associated Artery/Lesion type: unspecified vessel or lesion type [place] vs. transplanted heart: [place] heart Associated angina: without angina Qualified Code(s): I25.10 - Atherosclerotic heart disease of [place] coronary artery without angina pectoris (10) Hypothyroidism Qualifiers: Hypothyroidism type: unspecified Qualified Code(s): E03.9 - Hypothyroidism, unspecified
[2018-05-10] MEDS: Vancomycin Inj 1,000 MG in Sodium Chlor 0.9% Inj 250 ML IV.SIG SCH (20:33)
[2018-05-10 22:57] LABS: Potassium 3.6 meq/L (3.5-5.1)
[2018-05-10 23:04] LABS: Phosphorus 1.8 mg/dL (2.5-4.9)
[2018-05-10] MEDS: Potassium Phosphate 500 MG Soluble Tablet PO PRN (23:46)
[2018-05-11] MEDS: Insulin NovoLOG Aspart Correctional Sugar Inj SQ SCH ×4 (00:15→17:49)
[2018-05-11] MEDS: metroNIDAZOLE 500 MG Tablet PO SCH ×3 (02:49→17:47)
[2018-05-11] MEDS: Potassium Phosphate 500 MG Soluble Tablet PO PRN (02:51)
[2018-05-11] MEDS: MethylPREDNISolone Sod Succinate Inj 40 MG/ML Vial IV.PUSH SCH ×3 (06:34→21:00)
[2018-05-11] MEDS: Heparin - SQ 10,000 UNITS/ML Vial SQ SCH ×2 (06:34→17:48)
[2018-05-11] MEDS: Chlorhexidine Gluconate 2% 1 Pack (2 Cloths) TOPICAL SCH (06:35)
[2018-05-11] MEDS: Senna/Docusate Sodium 8.6/50 MG Tablet PO SCH ×2 (08:19→21:23)
--- NOTE | 2018-05-11 09:15 | XR ---
EXAM DATE: 05/11/2018 8:10 AM EDT AGE/SEX: 87 years / Male INDICATIONS: Shortness of breath. CLINICAL DATA: This is the patient's initial encounter. Patient reports that signs and symptoms have been present for 3 days and indicates a pain score of 0/10. MEDICAL/SURGICAL HISTORY: . Gastroesophageal reflux disease. Abdominal aortic aneurysm. Chronic pneumonia. Coronary artery disease. Essential hypertension. Gout. Atrial fibrillation. Hypothyroidis m. Osteoarthritis. Restless leg syndrome. . Cholecystectomy. Tonsillectomy. Coronary artery bypass graft. Coronary artery stent placement. COMPARISON: [facility], CHEST 1V SINGLE AP, 05/10/2018. . FINDINGS: Single view thorax demonstrates bilateral infiltrates and small areas of pleural effusion. Study woul d suggest possible congestive failure. Underlying pneumonia is not excluded. Study is compared to pre vious exam of 05/10/2018. Overall appearance of the parenchyma has mildly worsened. The heart is at the upper limits of normal in size. The patient is post median sternotomy. The bony structures demonstrate degenerative changes but are grossly intact. CONCLUSION: Bilateral areas of infiltrate and small effusions primary consideration would be congestive failure t [place] underlying pneumonia is not excluded. Appearance of the parenchyma has mildly worsened compared to previous dated 05/10/2018. Electronically signed by: Jed Borrego MD 05/11/2018 9:14 AM EDT
[2018-05-11] MEDS: dilTIAZem 30 MG Tablet PO SCH ×4 (09:16→21:23)
[2018-05-11] MEDS: TRELEGY ELLIPTA INH SCH (09:17)
[2018-05-11] MEDS: Allopurinol 100 MG Tablet PO SCH (09:20)
[2018-05-11 09:26] LABS: Baso % (Auto) 0.1 % (0.0-2.0); Hematocrit 33.1 % (39.0-51.0); Hemoglobin 11.4 gm/dL (13.0-17.0); Lymph # (Auto) 0.5 th/mm3 (1.0-4.8); Lymph % (Auto) 3.2 % (9.0-44.0); Mean Corpuscular HGB Conc 34.3 % (32.0-36.0); Mean Corpuscular Hemoglobin 28.4 pg (27.0-34.0); Mean Corpuscular Volume 82.9 fL (80.0-100.0); Mono # (Auto) 0.4 th/mm3 (0.0-0.9); Mono % (Auto) 2.4 % (0.0-8.0); Neut % (Auto) 94.3 % (16.0-70.0); Platelet Count 185 th/mm3 (150-450); Red Blood Count 3.99 mil/mm3 (4.50-5.90); Red Cell Distribution Width 15.2 % (11.6-17.2); White Blood Count 16.9 th/mm3 (4.0-11.0)
[2018-05-11 09:55] LABS: Calcium 7.9 mg/dL (8.5-10.1)
[2018-05-11 09:56] LABS: Blood Urea Nitrogen 22 mg/dL (7-18); Carbon Dioxide 20.1 meq/L (21.0-32.0); Glucose,Random 133 mg/dL (74-106)
[2018-05-11 09:59] LABS: Alanine Aminotransferase 23 U/L (12-78); Glomerular Filtration Rate 75 mL/min (>89)
[2018-05-11 10:01] LABS: Total Protein 6.4 g/dL (6.4-8.2)
[2018-05-11 10:02] LABS: Alkaline Phosphatase 84 U/L (45-117)
[2018-05-11 10:03] LABS: Anion Gap 13 meq/L (5-15); Chloride 110 meq/L (98-107); Potassium 3.6 meq/L (3.5-5.1); Sodium 143 meq/L (136-145)
[2018-05-11 10:16] LABS: Aspartate Aminotransferase 44 U/L (15-37)
[2018-05-11 14:36] LABS: Phosphorus 2.9 mg/dL (2.5-4.9)
--- NOTE | 2018-05-11 17:17 | P.PNCC ---
Subjective Subjective Remarks/Hospital Course: This is an 87-year-old male. He is full code. Date of admission . Past medical history includes chronic recurrent pneumonia, atrial fibrillation currently in sinus tachycardia with a right bundle branch block, obstructive sleep apnea requiring CPAP/BiPAP, coronary artery disease status post CABG x5, essential hypertension, hyperlipidemia, hypothyroidism, gastroesophageal disease, restless leg syndrome, history of chronic aortic aneurysm, arthritis and gout. Patient has had multiple admissions for recurrent pneumonia. He has been seen by Dr. Magaña as an outpatient. He presents to [facility] with a 2-3-day history of recurrent falls , weakness and shortness of breath. On arrival, patient saturations were 86%. Chest x-ray revealed bilateral lower lobe chronic infiltrates left greater than right. CT pulmonary angiogram was ordered by the ED physician. He was noted to be in sinus tachycardia right bundle branch block which is old, leukocytosis 23,000, creatinine 1.4 which is new. Baseline appears to be around 1. Lactic acid 3.1. Patient received 1 L normal saline and cefepime and azithromycin in the ED. He is placed on BiPAP which he is on at night. The family states he is on settings of 11 at 35% Patient is remains tachypneic but he states that he does not feel like he is tiring out at the present time. Repeat blood gas revealed he is blowing off CO2 with PCO2 of 22. PH is 7.46. PO2 of 91 mmHg. Bicarbonate was 16. Base index was -7. SUBJECTIVE: 05/09: Started on diltiazem drip overnight. Will discontinue currently. T-max 101.9. Will attempt to wean off BiPAP this morning. CT pulmonary angiogram revealed bilateral lower lobe infiltrate. No central pulmonary bolus. CT brain revealed no acute intracranial findings. Modified barium swallow ordered this a.m. with speech therapy 05/10: Resting comfortably. O2sats borderline on 6lit NC. 05/11: Had shortness of breath last night for which he was given Lasix and diuresed 1 L. Chest x-ray this morning shows pulmonary edema with underlying pneumonia. He was on nasal cannula this morning at the time of my evaluation in no acute distress. Objective Vital Signs / I&O: Vital Signs 05/10/18 19:15 05/10/18 20:00 05/10/18 21:00 Temperature 98.2 F Pulse Rate 90 86 84 Respiratory Rate 24 26 H 29 H Blood Pressure 103/60 94/49 L 84/57 L Pulse Oximetry 92 L 90 L 92 L 05/10/18 21:10 05/10/18 22:00 05/10/18 23:04 Temperature Pulse Rate 84 90 96 H Respiratory Rate 28 H 34 H 36 H Blood Pressure 107/54 L 104/53 L Pulse Oximetry 93 L 93 L 92 L 05/10/18 23:30 05/11/18 00:00 05/11/18 01:00 Temperature 98.4 F Pulse Rate 88 88 Respiratory Rate 28 H 28 H Blood Pressure 106/54 L 95/47 L Pulse Oximetry 95 97 95 05/11/18 02:00 05/11/18 02:08 05/11/18 03:00 Temperature 98 F Pulse Rate 82 86 Respiratory Rate 28 H 28 H Blood Pressure 95/53 L 109/58 L Pulse Oximetry 94 L 96 94 L 05/11/18 04:00 05/11/18 04:28 05/11/18 05:00 Temperature 98 F Pulse Rate 86 82 84 Respiratory Rate 24 28 H 28 H Blood Pressure 87/47 L 104/55 L Pulse Oximetry 97 96 96 05/11/18 06:00 05/11/18 07:00 05/11/18 08:00 Temperature 97.4 F L Pulse Rate 80 86 89 Respiratory Rate 28 H 31 H Blood Pressure 109/60 128/62 Pulse Oximetry 97 91 L 93 L 05/11/18 08:14 05/11/18 09:00 05/11/18 11:34 Temperature Pulse Rate 88 80 89 Respiratory Rate 31 H 20 24 Blood Pressure 106/62 103/59 L Pulse Oximetry 91 L 93 L 05/11/18 11:38 05/11/18 12:00 05/11/18 13:00 Temperature 97.4 F L Pulse Rate 88 94 H 96 H Respiratory Rate 24 44 H 43 H Blood Pressure 100/49 L 94/63 L 106/51 L Pulse Oximetry 91 L 89 L 87 L Intake & Output 05/10/18 05/11/18 05/11/18 18:59 06:59 18:59 Intake Total 2110 / 2110 1900 / 1900 0 / 0 Output Total 200 / 200 1150 / 1150 Balance 1910 / 1910 750 / 750 0 / 0 Weight 74.2 kg Intake: IV 1510 / 1510 1200 / 1200 0 / 0 1/2 Normal Saline Inj 1,000 ML 950 / 950 @ 50 mls/hr IV.CONT .Q20H EMILIA Rx#:[id number] Azithromycin Inj 500 MG In NS 250 / 250 Inj 250 ML @ 250 mls/hr IV.SIG Q24H EMILIA Rx#:[id number] KCl 20 mEq Premix Inj 20 meq In 300 / 300 100 ml @ 50 mls/hr IV.SIG Q2H PRN Rx#:[id number] Sodium Phosphate Inj 30 MMOL In 260 / 260 NS Inj 250 ML @ 42 mls/hr IV. SIG UNSCH PRN Rx#:[id number] Vancomycin Inj 1,000 MG In NS 250 / 250 Inj 250 ML @ 250 mls/hr IV.SIG Q24H EMILIA Rx#:[id number] Rocephin Inj 2,000 MG In NS Inj 100 / 100 100 ML @ 200 mls/hr IV.SIG Q24H EMILIA Rx#:[id number] Oral 600 / 600 700 / 700 Output: Urine 200 / 200 1150 / 1150 Other: Date of Last Bowel Movement 05/08/18 05/08/18 # Bowel Movements 0 Result Diagrams: 05/11/18 09:11 05/11/18 08:08 Objective Remarks: GENERAL: 87-year-old male currently resting in bed in no acute distress SKIN: Warm and dry. Few scattered ecchymoses bilateral upper extremities. HEAD: Atraumatic. Normocephalic. EYES: Pupils equal and round about 3 mm bilaterally and reactive. No scleral icterus. No injection or drainage. ENT: No nasal bleeding or discharge. Mucous membranes pink and moist. NECK: Trachea midline. No JVD. CARDIOVASCULAR: Regular rate and rhythm. S1, S2. No S4. Without murmur RESPIRATORY: Few coarse rhonchorous breath sounds patient bases bilaterally. No wheezing. GASTROINTESTINAL: Abdomen soft, non-tender, nondistended. Hypoactive bowel sounds appreciated. MUSCULOSKELETAL: Extremities without clubbing, cyanosis, or edema. NEUROLOGICAL: Awake and alert. No obvious cranial nerve deficits. Motor grossly within normal limits. Five out of 5 muscle strength in the arms and legs. Assessment and Plan - Problem List (1) Acute hypoxemic respiratory failure Code(s): J96.01 - Acute respiratory failure with hypoxia Status: Acute (2) SIRS (systemic inflammatory response syndrome) Code(s): R65.10 - Systemic inflammatory response syndrome (SIRS) of non- infectious origin without acute organ dysfunction Status: Acute (3) Right bundle branch block Code(s): I45.10 - Unspecified right bundle-branch block Status: Chronic (4) Sinus tachycardia Code(s): R00.0 - Tachycardia, unspecified Status: Acute (5) COPD (chronic obstructive pulmonary disease) Code(s): J44.9 - Chronic obstructive pulmonary disease, unspecified Status: Chronic (6) Paroxysmal atrial fibrillation Code(s): I48.0 - Paroxysmal atrial fibrillation Status: Suspected (7) Coronary artery disease Code(s): I25.10 - Atherosclerotic heart disease of [place] coronary artery without angina pectoris Status: Chronic (8) Essential hypertension Code(s): I10 - Essential (primary) hypertension Status: Chronic (9) Hyperlipidemia Code(s): E78.5 - Hyperlipidemia, unspecified Status: Chronic (10) Lactic acidosis Code(s): E87.2 - Acidosis Status: Acute (11) Gout Code(s): M10.9 - Gout, unspecified Status: Chronic (12) Osteoarthritis Code(s): M19.90 - Unspecified osteoarthritis, unspecified site Status: Chronic (13) Restless leg syndrome Code(s): G25.81 - Restless legs syndrome Status: Chronic (14) Gastroesophageal reflux disease Code(s): K21.9 - Gastro-esophageal reflux disease without esophagitis Status: Chronic (15) Hypothyroidism Code(s): E03.9 - Hypothyroidism, unspecified Status: Chronic (16) Leukocytosis Code(s): D72.829 - Elevated white blood cell count, unspecified Status: Acute (17) AAA (abdominal aortic aneurysm) Code(s): I71.4 - Abdominal aortic aneurysm, without rupture Status: Chronic (18) Acute kidney injury Code(s): N17.9 - Acute kidney failure, unspecified Status: Acute (19) Hyponatremia Code(s): E87.1 - Hypo-osmolality and hyponatremia Status: Acute (20) Former tobacco use Code(s): Z87.891 - Personal history of nicotine dependence Status: Chronic (21) Recurrent pneumonia Code(s): J18.9 - Pneumonia, unspecified organism Status: Chronic (22) Elevated troponin Code(s): R74.8 - Abnormal levels of other serum enzymes Status: Acute (23) Normocytic anemia Code(s): D64.9 - Anemia, unspecified Status: Acute (24) Cystitis Code(s): N30.90 - Cystitis, unspecified without hematuria Status: Acute (25) Hypokalemia Code(s): E87.6 - Hypokalemia Status: Acute - Assessment and Plan Plan: Neuro/Psych: Restless leg syndrome Gait and balance disorder Acetaminophen 650 mg by mouth every 6 hours as needed fever Hydrocodone/acetaminophen 5/325 1 tablet every 4 hours as needed pain 1 through 5 Morphine sulfate 2 mg IV every 2 hours as needed pain 6 through 10 Ropinirole 0.5 mg 3 times daily for restless leg syndrome CT brain revealed no acute intracranial findings Physical therapy/occupational therapy evaluate and treat CV: Elevated troponin Right bundle branch block Coronary artery disease status post CABG x5 History of coronary artery stent Essential hypertension Hyperlipidemia Lactic acidosis History of paroxysmal atrial fibrillation currently in sinus tachycardia History of AAA EKG in the ED revealed sinus tachycardia. Rate 130s. Borderline first-degree AV block. Right bundle branch block. Initial troponin was 0.04. Currently at 0.45. Trend until peaked We will check 2D echocardiogram. Will hold off on cardiology consultation as likely type II demand ischemia from tachycardia unless new acute cardiac findings Home medication is diltiazem 120 mg daily for hypertension. Currently 15 mg 4 times daily Resume aspirin 81 mg daily Holding isosorbide mononitrate 60 mg daily in light of borderline blood pressures Continue pravastatin 80 mg daily/home medication for dyslipidemia Echocardiogram 2017 revealed EF around 50-55%. Left atrial dilatation. Moderate MR. PAP 40-50 mmHg Serial lactates until cleared. D5NS with KCL @ 42cc/hr Resp: Acute respiratory failure/hypoxic hypercapnic History of chronic recurrent pneumonia History of COPD/tobaccoism Obstructive sleep apnea on nocturnal BiPAP BiPAP as needed, supplemental O2 as needed. Chest x-ray revealed the lungs to be symmetrically aerated without evidence of mass, infiltrate or effusion other than mild consolidation both lung bases CT pulmonary angiogram revealed no central pulmonary. Bilateral lower lobe infiltrates/consolidation. Right hilar lymphadenopathy 2.1 cm maximum. See infectious disease for antibiotics Resume fluticasone/umeclidinium/Vilanterol daily Albuterol/ipratropium aerosols every 4 hours with albuterol aerosols every 2 hours as needed dyspnea Methylprednisolone succinate 40 mg IV twice daily Follow-up on chest x-ray in a.m. 05/10 revealed infiltrates with pulmonary edema. Lasix 20 mg IV daily ordered 05/11 to mobilize fluid GI: Gastroesophageal reflux disease P.o. diet as tolerated Modified barium swallow with speech therapy Patient is on omeprazole 20 mg daily at home. Continue pantoprazole 40 mg daily Docusate sodium/senna 1 tablet twice daily for bowel regimen : Straight catheterization as needed. ED physician ordered Juares catheter placement. Removed Endo: Hypothyroidism Gout Continue levothyroxine at 25 mcg daily. Check TSH in a.m. -0.6 Sliding scale insulin with aspart insulin/low regimen with Accu-Cheks every 6 hours to maintain euglycemia Continue allopurinol 100 mg daily Renal: Acute kidney injury Check urine eosinophils, sodium and creatinine. Ultrasound ordered. Continue crystalloid resuscitation Avoid nephrotoxic medications monitor urine output Accurate I's and O's Heme: Acute leukocytosis Normocytic anemia Monitor CBC daily. Follow trends No indication for transfusion of blood products at this time. Previously on apixaban but off due to frequent falls ID: Recurrent pneumonia Legionella pneumonia Blood cultures x2, sputum cultures negative Influenza a and B-. Urine pneumococcal Ag negative Urine Legionella antigen positive Mycoplasma and Chlamydia pending Currently on vancomycin, ceftriaxone, azithromycin and metronidazole. Day #2 FEN: Hypomagnesia acute hypokalemia Replace electrolytes as clinically indicated per ICU electrolyte protocol Currently on normal saline at 84 cc an hour. Will switch to one half normal saline at 50 cc an hour. Discontinue after 1 L. Received 2.5 L crystalloid resuscitation in the ED MSK: Physical therapy evaluate and treat/out of bed Continue cholecalciferol 1000 units daily Access -Utilize peripheral IV. Central line if indicated Prophylaxis -GI -pantoprazole -DVT -SCD/heparin subcu Transfer to hospitalist service for medical management. (5) COPD (chronic obstructive pulmonary disease) Qualifiers: COPD type: unspecified COPD Qualified Code(s): J44.9 - Chronic obstructive pulmonary disease, unspecified (7) Coronary artery disease Qualifiers: Coronary Disease-Associated Artery/Lesion type: unspecified vessel or lesion type [place] vs. transplanted heart: [place] heart Associated angina: without angina Qualified Code(s): I25.10 - Atherosclerotic heart disease of [place] coronary artery without angina pectoris (9) Hyperlipidemia Qualifiers: Hyperlipidemia type: unspecified Qualified Code(s): E78.5 - Hyperlipidemia, unspecified (11) Gout Qualifiers: Gout site: unspecified site Gout etiology: unspecified cause Chronicity: unspecified Qualified Code(s): M10.9 - Gout, unspecified (12) Osteoarthritis Qualifiers: Osteoarthritis location: unspecified site Osteoarthritis type: unspecified Qualified Code(s): M19.90 - Unspecified osteoarthritis, unspecified site (14) Gastroesophageal reflux disease Qualifiers: Esophagitis presence: esophagitis presence not specified Qualified Code(s): K21.9 - Gastro-esophageal reflux disease without esophagitis (15) Hypothyroidism Qualifiers: Hypothyroidism type: unspecified Qualified Code(s): E03.9 - Hypothyroidism, unspecified (16) Leukocytosis Qualifiers: Leukocytosis type: unspecified Qualified Code(s): D72.829 - Elevated white blood cell count, unspecified (17) AAA (abdominal aortic aneurysm) Qualifiers: Presence of rupture: without rupture Qualified Code(s): I71.4 - Abdominal aortic aneurysm, without rupture
[2018-05-11] MEDS: Azithromycin Inj 500 MG in Sodium Chlor 0.9% Inj 250 ML IV.SIG SCH (17:47)
--- NOTE | 2018-05-11 18:51 | P.PN ---
Subjective Interval history: Up in a chair and on 5 L O2. Cough is present and has no fever. Had lasix today with good result. Physical Exam Vital signs: Vital Signs 05/10/18 19:15 05/10/18 20:00 05/10/18 21:00 Temperature 98.2 F Pulse Rate 90 86 84 Respiratory Rate 24 26 H 29 H Blood Pressure 103/60 94/49 L 84/57 L Pulse Oximetry 92 L 90 L 92 L 05/10/18 21:10 05/10/18 22:00 05/10/18 23:04 Temperature Pulse Rate 84 90 96 H Respiratory Rate 28 H 34 H 36 H Blood Pressure 107/54 L 104/53 L Pulse Oximetry 93 L 93 L 92 L 05/10/18 23:30 05/11/18 00:00 05/11/18 01:00 Temperature 98.4 F Pulse Rate 88 88 Respiratory Rate 28 H 28 H Blood Pressure 106/54 L 95/47 L Pulse Oximetry 95 97 95 05/11/18 02:00 05/11/18 02:08 05/11/18 03:00 Temperature 98 F Pulse Rate 82 86 Respiratory Rate 28 H 28 H Blood Pressure 95/53 L 109/58 L Pulse Oximetry 94 L 96 94 L 05/11/18 04:00 05/11/18 04:28 05/11/18 05:00 Temperature 98 F Pulse Rate 86 82 84 Respiratory Rate 24 28 H 28 H Blood Pressure 87/47 L 104/55 L Pulse Oximetry 97 96 96 05/11/18 06:00 05/11/18 07:00 05/11/18 08:00 Temperature 97.4 F L Pulse Rate 80 86 89 Respiratory Rate 28 H 31 H Blood Pressure 109/60 128/62 Pulse Oximetry 97 91 L 93 L 05/11/18 08:14 05/11/18 09:00 05/11/18 09:50 Temperature Pulse Rate 88 80 Respiratory Rate 31 H 20 Blood Pressure 106/62 103/59 L Pulse Oximetry 91 L 93 L 91 L 05/11/18 11:34 05/11/18 11:38 05/11/18 12:00 Temperature 97.4 F L Pulse Rate 89 88 94 H Respiratory Rate 24 24 44 H Blood Pressure 100/49 L 94/63 L Pulse Oximetry 91 L 89 L 05/11/18 13:00 05/11/18 14:00 05/11/18 15:00 Temperature Pulse Rate 96 H 94 H 96 H Respiratory Rate 43 H 35 H 36 H Blood Pressure 106/51 L 94/58 L 109/79 Pulse Oximetry 87 L 90 L 90 L 05/11/18 16:14 05/11/18 18:08 Temperature 97.5 F L Pulse Rate 94 H 106 H Respiratory Rate 34 H 43 H Blood Pressure 99/64 L 117/87 Pulse Oximetry 93 L 92 L Intake & Output 05/10/18 05/11/18 05/11/18 18:59 06:59 18:59 Intake Total 2110 / 2110 1900 / 1900 400 / 400 Output Total 200 / 200 1150 / 1150 820 / 820 Balance 1909 / 1909 750 / 750 -420 / -420 Weight 74.2 kg Intake: IV 1510 / 1510 1200 / 1200 100 / 100 1/2 Normal Saline Inj 1,000 ML 950 / 950 @ 50 mls/hr IV.CONT .Q20H EMILIA Rx#:[id number] Azithromycin Inj 500 MG In NS 250 / 250 Inj 250 ML @ 250 mls/hr IV.SIG Q24H EMILIA Rx#:[id number] KCl 20 mEq Premix Inj 20 meq In 300 / 300 100 ml @ 50 mls/hr IV.SIG Q2H PRN Rx#:[id number] Sodium Phosphate Inj 30 MMOL In 260 / 260 NS Inj 250 ML @ 42 mls/hr IV. SIG UNSCH PRN Rx#:[id number] Vancomycin Inj 1,000 MG In NS 250 / 250 Inj 250 ML @ 250 mls/hr IV.SIG Q24H EMILIA Rx#:[id number] Rocephin Inj 2,000 MG In NS Inj 100 / 100 100 / 100 100 ML @ 200 mls/hr IV.SIG Q24H EMILIA Rx#:[id number] Oral 600 / 600 700 / 700 300 / 300 Output: Urine 200 / 200 1150 / 1150 820 / 820 Other: Date of Last Bowel Movement 05/08/18 05/08/18 05/11/18 # Bowel Movements 0 1 GENERAL: Elderly W/M alert NAD. SKIN: Warm and dry. HEAD: Atraumatic. Normocephalic. EYES: Pupils equal and round. No scleral icterus. No injection or drainage. ENT: No nasal bleeding or discharge. Mucous membranes pink and moist. NECK: Trachea midline. No JVD. CARDIOVASCULAR: Regular rate and rhythm. RESPIRATORY: No accessory muscle use. Basal crackles and wheeze. Breath sounds equal bilaterally. GASTROINTESTINAL: Abdomen soft, non-tender, nondistended. Hepatic and splenic margins not palpable. MUSCULOSKELETAL: Extremities without clubbing, cyanosis, or edema. No obvious deformities. NEUROLOGICAL: Awake and alert. No obvious cranial nerve deficits. Motor grossly within normal limits. Five out of 5 muscle strength in the arms and legs. Normal speech. PSYCHIATRIC: Appropriate mood and affect; insight and judgment normal. - Urinary Catheter Management Indwelling Urethral Catheter Cath placed during this visit: yes, but has since been removed by the nurse Reason for continuing: Not indwelling catheter Insertion date: 05/09/18 Insertion time: 17:45 Removal date: 05/09/18 Removal time: 12:45 Straight Cath placed during this visit: no Reason for continuing: Not indwelling catheter Results - Labs CBC & Chem 7: 05/11/18 09:11 05/11/18 08:08 Laboratory Results - last 24 hr 05/10/18 05/10/18 05/11/18 22:10 23:48 06:25 CBC w Diff WBC RBC Hgb Hct MCV MCH MCHC RDW Plt Count MPV Neut % (Auto) Lymph % (Auto) [place] % (Auto) Eos % (Auto) Baso % (Auto) Neut # (Auto) Lymph # (Auto) [place] # (Auto) Eos # (Auto) Baso # (Auto) WBC Differential Differential Comment Sodium Potassium 3.6 Chloride Carbon Dioxide Anion Gap BUN Creatinine Estimated GFR POC Glucose 121 H 133 H Random Glucose Calcium Phosphorus 1.8 L Total Bilirubin AST ALT Alkaline Phosphatase Total Protein Albumin 05/11/18 05/11/18 05/11/18 08:08 09:11 12:03 CBC w Diff Auto diff final WBC 16.9 H RBC 3.99 L Hgb 11.4 L Hct 33.1 L MCV 82.9 MCH 28.4 MCHC 34.3 RDW 15.2 Plt Count 185 MPV 9.0 Neut % (Auto) 94.3 H Lymph % (Auto) 3.2 L [place] % (Auto) 2.4 Eos % (Auto) 0.0 Baso % (Auto) 0.1 Neut # (Auto) 16.0 H Lymph # (Auto) 0.5 L [place] # (Auto) 0.4 Eos # (Auto) 0.0 Baso # (Auto) 0.0 WBC Differential . Differential Comment . Sodium 143 Potassium 3.6 Chloride 110 H Carbon Dioxide 20.1 L Anion Gap 13 BUN 22 H Creatinine 0.95 Estimated GFR 75 L POC Glucose 132 H Random Glucose 133 H Calcium 7.9 L Phosphorus 2.9 D Total Bilirubin 0.3 AST 44 H ALT 23 Alkaline Phosphatase 84 Total Protein 6.4 Albumin 2.0 L 05/11/18 16:50 CBC w Diff WBC RBC Hgb Hct MCV MCH MCHC RDW Plt Count MPV Neut % (Auto) Lymph % (Auto) [place] % (Auto) Eos % (Auto) Baso % (Auto) Neut # (Auto) Lymph # (Auto) [place] # (Auto) Eos # (Auto) Baso # (Auto) WBC Differential Differential Comment Sodium Potassium Chloride Carbon Dioxide Anion Gap BUN Creatinine Estimated GFR POC Glucose 169 H Random Glucose Calcium Phosphorus Total Bilirubin AST ALT Alkaline Phosphatase Total Protein Albumin Microbiology 05/08/18 16:10 Blood - Peripheral Aerobic Blood Culture - Preliminary No growth in 3 days 05/08/18 16:10 Blood - Peripheral Anaerobic Blood Culture - Preliminary No growth in 3 days 05/08/18 16:05 Blood - Peripheral Aerobic Blood Culture - Preliminary No growth in 3 days 05/08/18 16:05 Blood - Peripheral Anaerobic Blood Culture - Preliminary No growth in 3 days - Imaging Impressions Chest X-Ray 05/11/18 07:15 CONCLUSION: Bilateral areas of infiltrate and small effusions primary consideration would be congestive failure though underlying pneumonia is not excluded. Appearance of the parenchyma has mildly worsened compared to previous dated . Assessment and Plan - Assessment (1) Aspiration pneumonia Code(s): J69.0 - Pneumonitis due to inhalation of food and vomit Status: Acute (2) Acute hypoxemic respiratory failure Code(s): J96.01 - Acute respiratory failure with hypoxia Status: Acute (3) SIRS (systemic inflammatory response syndrome) Code(s): R65.10 - Systemic inflammatory response syndrome (SIRS) of non- infectious origin without acute organ dysfunction Status: Acute (4) Right bundle branch block Code(s): I45.10 - Unspecified right bundle-branch block Status: Chronic (5) Sinus tachycardia Code(s): R00.0 - Tachycardia, unspecified Status: Acute (6) COPD (chronic obstructive pulmonary disease) Code(s): J44.9 - Chronic obstructive pulmonary disease, unspecified Status: Chronic (7) Paroxysmal atrial fibrillation Code(s): I48.0 - Paroxysmal atrial fibrillation Status: Suspected (8) Coronary artery disease Code(s): I25.10 - Atherosclerotic heart disease of [place] coronary artery without angina pectoris Status: Chronic (9) Essential hypertension Code(s): I10 - Essential (primary) hypertension Status: Chronic (10) Hypothyroidism Code(s): E03.9 - Hypothyroidism, unspecified Status: Chronic (11) Acute kidney injury Code(s): N17.9 - Acute kidney failure, unspecified Status: Acute (12) Normocytic anemia Code(s): D64.9 - Anemia, unspecified Status: Acute - Plan 1. Cont antibiotics per Dr aguilar 2. Wean O2 to 4L. 3. BIPAP 12/5 cm at HS if tolerated. 4. Cont Duoneb nebs qid prn 5. BMP ,CBC in am. 6. Cont Solumderol 40 mg IV Q8H 7. PT Evaluation and rehab. 8. Lasix 20 mg daily. (6) COPD (chronic obstructive pulmonary disease) Qualifiers: COPD type: unspecified COPD Qualified Code(s): J44.9 - Chronic obstructive pulmonary disease, unspecified (8) Coronary artery disease Qualifiers: Coronary Disease-Associated Artery/Lesion type: unspecified vessel or lesion type [place] vs. transplanted heart: [place] heart Associated angina: without angina Qualified Code(s): I25.10 - Atherosclerotic heart disease of [place] coronary artery without angina pectoris (10) Hypothyroidism Qualifiers: Hypothyroidism type: unspecified Qualified Code(s): E03.9 - Hypothyroidism, unspecified
[2018-05-11] MEDS ORDERED: Pharmacy Ordered Lab Info OTHER ONE (19:45)
[2018-05-11] MEDS: Vancomycin Inj 1,000 MG in Sodium Chlor 0.9% Inj 250 ML IV.SIG SCH (19:58)
--- NOTE | 2018-05-11 20:57 | P.PN ---
Subjective Interval history: NOT SEEN Physical Exam Vital signs: Vital Signs 05/10/18 21:00 05/10/18 21:10 05/10/18 22:00 Temperature Pulse Rate 84 84 90 Respiratory Rate 29 H 28 H 34 H Blood Pressure 84/57 L 107/54 L Pulse Oximetry 92 L 93 L 93 L 05/10/18 23:04 05/10/18 23:30 05/11/18 00:00 Temperature 98.4 F Pulse Rate 96 H 88 Respiratory Rate 36 H 28 H Blood Pressure 104/53 L 106/54 L Pulse Oximetry 92 L 95 97 05/11/18 01:00 05/11/18 02:00 05/11/18 02:08 Temperature Pulse Rate 88 82 Respiratory Rate 28 H 28 H Blood Pressure 95/47 L 95/53 L Pulse Oximetry 95 94 L 96 05/11/18 03:00 05/11/18 04:00 05/11/18 04:28 Temperature 98 F 98 F Pulse Rate 86 86 82 Respiratory Rate 28 H 24 28 H Blood Pressure 109/58 L 87/47 L Pulse Oximetry 94 L 97 96 05/11/18 05:00 05/11/18 06:00 05/11/18 07:00 Temperature 97.4 F L Pulse Rate 84 80 86 Respiratory Rate 28 H 28 H 31 H Blood Pressure 104/55 L 109/60 128/62 Pulse Oximetry 96 97 91 L 05/11/18 08:00 05/11/18 08:14 05/11/18 09:00 Temperature Pulse Rate 89 88 80 Respiratory Rate 31 H 20 Blood Pressure 106/62 103/59 L Pulse Oximetry 93 L 91 L 93 L 05/11/18 09:50 05/11/18 11:34 05/11/18 11:38 Temperature Pulse Rate 89 88 Respiratory Rate 24 24 Blood Pressure 100/49 L Pulse Oximetry 91 L 91 L 05/11/18 12:00 05/11/18 13:00 05/11/18 14:00 Temperature 97.4 F L Pulse Rate 94 H 96 H 94 H Respiratory Rate 44 H 43 H 35 H Blood Pressure 94/63 L 106/51 L 94/58 L Pulse Oximetry 89 L 87 L 90 L 05/11/18 15:00 05/11/18 16:14 05/11/18 18:08 Temperature 97.5 F L Pulse Rate 96 H 94 H 106 H Respiratory Rate 36 H 34 H 43 H Blood Pressure 109/79 99/64 L 117/87 Pulse Oximetry 90 L 93 L 92 L 05/11/18 19:00 05/11/18 20:00 05/11/18 20:37 Temperature 98.8 F Pulse Rate 89 105 H 89 Respiratory Rate 22 22 19 Blood Pressure 103/57 L Pulse Oximetry 90 L 92 L Intake & Output 05/11/18 05/11/18 05/12/18 06:59 18:59 06:59 Intake Total 1900 / 1900 400 / 400 Output Total 1150 / 1150 820 / 820 Balance 750 / 750 -420 / -420 Weight 74.2 kg Intake: IV 1200 / 1200 100 / 100 Azithromycin Inj 500 MG In NS 250 / 250 Inj 250 ML @ 250 mls/hr IV.SIG Q24H [facility] Rx#:[id number] Vancomycin Inj 1,000 MG In NS 250 / 250 Inj 250 ML @ 250 mls/hr IV.SIG Q24H [facility]IA Rx#:[id number] Rocephin Inj 2,000 MG In NS Inj 100 / 100 100 / 100 100 ML @ 200 mls/hr IV.SIG Q24H [facility]IA Rx#:[id number] Oral 700 / 700 300 / 300 Output: Urine 1150 / 1150 820 / 820 Other: Date of Last Bowel Movement 05/08/18 05/11/18 # Bowel Movements 0 1 Narrative: GENERAL: 87-year-old male currently resting in bed in no acute distress SKIN: Warm and dry. Few scattered ecchymoses bilateral upper extremities. CARDIOVASCULAR: Regular rate and rhythm. S1, S2. No S4. Without murmur RESPIRATORY: Few coarse rhonchorous breath sounds patient bases bilaterally. No wheezing. GASTROINTESTINAL: Abdomen soft, non-tender, nondistended. Hypoactive bowel sounds appreciated. MUSCULOSKELETAL: Extremities without clubbing, cyanosis, or edema. NEUROLOGICAL: Awake and alert. No obvious cranial nerve deficits. Motor grossly within normal limits. Five out of 5 muscle strength in the arms and legs. - Urinary Catheter Management Indwelling Urethral Catheter Cath placed during this visit: yes, but has since been removed by the nurse Reason for continuing: Not indwelling catheter Insertion date: 05/09/18 Insertion time: 17:45 Removal date: 05/09/18 Removal time: 12:45 Straight Cath placed during this visit: no Reason for continuing: Not indwelling catheter Results - Labs CBC & Chem 7: 05/11/18 09:11 05/11/18 08:08 Laboratory Results - last 24 hr 05/10/18 05/10/18 05/11/18 22:10 23:48 06:25 CBC w Diff WBC RBC Hgb Hct MCV MCH MCHC RDW Plt Count MPV Neut % (Auto) Lymph % (Auto) Frederick % (Auto) Eos % (Auto) Baso % (Auto) Neut # (Auto) Lymph # (Auto) Frederick # (Auto) Eos # (Auto) Baso # (Auto) WBC Differential Differential Comment Sodium Potassium 3.6 Chloride Carbon Dioxide Anion Gap BUN Creatinine Estimated GFR POC Glucose 121 H 133 H Random Glucose Calcium Phosphorus 1.8 L Total Bilirubin AST ALT Alkaline Phosphatase Total Protein Albumin 05/11/18 05/11/18 05/11/18 08:08 09:11 12:03 CBC w Diff Auto diff final WBC 16.9 H RBC 3.99 L Hgb 11.4 L Hct 33.1 L MCV 82.9 MCH 28.4 MCHC 34.3 RDW 15.2 Plt Count 185 MPV 9.0 Neut % (Auto) 94.3 H Lymph % (Auto) 3.2 L Frederick % (Auto) 2.4 Eos % (Auto) 0.0 Baso % (Auto) 0.1 Neut # (Auto) 16.0 H Lymph # (Auto) 0.5 L Frederick # (Auto) 0.4 Eos # (Auto) 0.0 Baso # (Auto) 0.0 WBC Differential . Differential Comment . Sodium 143 Potassium 3.6 Chloride 110 H Carbon Dioxide 20.1 L Anion Gap 13 BUN 22 H Creatinine 0.95 Estimated GFR 75 L POC Glucose 132 H Random Glucose 133 H Calcium 7.9 L Phosphorus 2.9 D Total Bilirubin 0.3 AST 44 H ALT 23 Alkaline Phosphatase 84 Total Protein 6.4 Albumin 2.0 L 05/11/18 16:50 CBC w Diff WBC RBC Hgb Hct MCV MCH MCHC RDW Plt Count MPV Neut % (Auto) Lymph % (Auto) Frederick % (Auto) Eos % (Auto) Baso % (Auto) Neut # (Auto) Lymph # (Auto) Frederick # (Auto) Eos # (Auto) Baso # (Auto) WBC Differential Differential Comment Sodium Potassium Chloride Carbon Dioxide Anion Gap BUN Creatinine Estimated GFR POC Glucose 169 H Random Glucose Calcium Phosphorus Total Bilirubin AST ALT Alkaline Phosphatase Total Protein Albumin Microbiology 05/08/18 16:10 Blood - Peripheral Aerobic Blood Culture - Preliminary No growth in 3 days 05/08/18 16:10 Blood - Peripheral Anaerobic Blood Culture - Preliminary No growth in 3 days 05/08/18 16:05 Blood - Peripheral Aerobic Blood Culture - Preliminary No growth in 3 days 05/08/18 16:05 Blood - Peripheral Anaerobic Blood Culture - Preliminary No growth in 3 days - Imaging ITS Impressions Head CT 05/08/18 00:00 CONCLUSION: 1. No acute intracranial abnormalities. . Chest CTA 05/08/18 16:02 CONCLUSION: 1. Suboptimal exam but no definite evidence for pulmonary embolus. 2. Worsening bilateral lung consolidation especially posteriorly with air bronchograms. Also worsening adenopathy and possible 2.1 cm mass or enlarged lymph node in the right hilar region. Cannot exclude underlying neoplasm. Abdomen/Bladder Ultrasound 05/09/18 00:00 CONCLUSION: 1. Mildly echogenic without hydronephrosis or mass. Videofluoroscopic Swallow 05/09/18 00:00 CONCLUSION: Please see detailed report by speech pathology. Chest X-Ray 05/11/18 07:15 CONCLUSION: Bilateral areas of infiltrate and small effusions primary consideration would be congestive failure though underlying pneumonia is not excluded. Appearance of the parenchyma has mildly worsened compared to previous dated . - Procedures none Assessment and Plan - Plan Neuro/Psych: Restless leg syndrome Gait and balance disorder Acetaminophen 650 mg by mouth every 6 hours as needed fever Hydrocodone/acetaminophen 5/325 1 tablet every 4 hours as needed pain 1 through 5 Morphine sulfate 2 mg IV every 2 hours as needed pain 6 through 10 Ropinirole 0.5 mg 3 times daily for restless leg syndrome CT brain revealed no acute intracranial findings Physical therapy/occupational therapy evaluate and treat CV: Elevated troponin Right bundle branch block Coronary artery disease status post CABG x5 History of coronary artery stent Essential hypertension Hyperlipidemia Lactic acidosis History of paroxysmal atrial fibrillation currently in sinus tachycardia History of AAA EKG in the ED revealed sinus tachycardia. Rate 130s. Borderline first-degree AV block. Right bundle branch block. Will hold off on cardiology consultation as likely type II demand ischemia from tachycardia unless new acute cardiac findings Home medication is diltiazem 120 mg daily for hypertension. Currently 15 mg 4 times daily Resume aspirin 81 mg daily Holding isosorbide mononitrate 60 mg daily in light of borderline blood pressures Continue pravastatin 80 mg daily/home medication for dyslipidemia Echocardiogram 2017 revealed EF around 50-55%. Left atrial dilatation. Moderate MR. PAP 40-50 mmHg Resp: Acute respiratory failure/hypoxic hypercapnic History of chronic recurrent pneumonia History of COPD/tobaccoism Obstructive sleep apnea on nocturnal BiPAP BiPAP as needed, supplemental O2 as needed. Chest x-ray revealed the lungs to be symmetrically aerated without evidence of mass, infiltrate or effusion other than mild consolidation both lung bases CT pulmonary angiogram revealed no central pulmonary. Bilateral lower lobe infiltrates/consolidation. Right hilar lymphadenopathy 2.1 cm vs mass, pulmo ff See infectious disease for antibiotics Resume fluticasone/umeclidinium/Vilanterol daily Albuterol/ipratropium aerosols every 4 hours with albuterol aerosols every 2 hours as needed dyspnea Methylprednisolone succinate 40 mg IV twice daily Follow-up on chest x-ray in a.m. 05/10 revealed infiltrates with pulmonary edema. Lasix 20 mg IV daily ordered 05/11 to mobilize fluid GI: Gastroesophageal reflux disease P.o. diet as tolerated Modified barium swallow with speech therapy Patient is on omeprazole 20 mg daily at home. Continue pantoprazole 40 mg daily Docusate sodium/senna 1 tablet twice daily for bowel regimen : Straight catheterization as needed. ED physician ordered Juares catheter placement. Removed Endo: Hypothyroidism Gout Continue levothyroxine at 25 mcg daily. TSH in a.m. -0.6 Sliding scale insulin with aspart insulin/low regimen with Accu-Cheks every 6 hours to maintain euglycemia Continue allopurinol 100 mg daily Renal: Acute kidney injury. Resolving Neg urine eosinophils Ultrasound w/o block Continue crystalloid resuscitation Avoid nephrotoxic medications monitor urine output Accurate I's and O's Heme: Acute leukocytosis Normocytic anemia Monitor CBC daily. Follow trends No indication for transfusion of blood products at this time. Previously on apixaban but off due to frequent falls ID: Recurrent pneumonia Legionella pneumonia Blood cultures x2, sputum cultures negative Influenza a and B-. Urine pneumococcal Ag negative Urine Legionella antigen positive Mycoplasma and Chlamydia pending Currently on vancomycin, ceftriaxone, azithromycin and metronidazole. FEN: Hypomagnesia acute hypokalemia Replace electrolytes as clinically indicated per ICU electrolyte protocol MSK: Physical therapy evaluate and treat/out of bed Continue cholecalciferol 1000 units daily Access -Utilize peripheral IV. Central line if indicated Prophylaxis -GI -pantoprazole -DVT -SCD/heparin subcu Discharge Planning: Transfer to floor if ok with pulmo
[2018-05-12] MEDS: Insulin NovoLOG Aspart Correctional Sugar Inj SQ SCH ×4 (00:35→18:00)
[2018-05-12] MEDS: metroNIDAZOLE 500 MG Tablet PO SCH ×2 (01:46→10:34)
[2018-05-12] MEDS: Chlorhexidine Gluconate 2% 1 Pack (2 Cloths) TOPICAL SCH (04:07)
[2018-05-12] MEDS: Heparin - SQ 10,000 UNITS/ML Vial SQ SCH ×2 (05:50→18:00)
[2018-05-12] MEDS: MethylPREDNISolone Sod Succinate Inj 40 MG/ML Vial IV.PUSH SCH ×3 (05:50→22:27)
[2018-05-12 06:23] LABS: Chloride 108 meq/L (98-107); Potassium 3.3 meq/L (3.5-5.1); Sodium 142 meq/L (136-145)
[2018-05-12 06:26] LABS: Calcium 7.7 mg/dL (8.5-10.1)
[2018-05-12 06:27] LABS: Anion Gap 9 meq/L (5-15); Blood Urea Nitrogen 19 mg/dL (7-18); Carbon Dioxide 25.3 meq/L (21.0-32.0); Glucose,Random 145 mg/dL (74-106); Magnesium 1.6 mg/dL (1.5-2.5)
[2018-05-12 06:30] LABS: Glomerular Filtration Rate Greater Than 89 mL/min (>89)
--- NOTE | 2018-05-12 09:55 | P.PNIM ---
Physical Exam Vital signs: Vital Signs 05/11/18 11:34 05/11/18 11:38 05/11/18 12:00 Temperature 97.4 F L Pulse Rate 89 88 94 H Respiratory Rate 24 24 44 H Blood Pressure 100/49 L 94/63 L Pulse Oximetry 91 L 89 L 05/11/18 13:00 05/11/18 14:00 05/11/18 15:00 Temperature Pulse Rate 96 H 94 H 96 H Respiratory Rate 43 H 35 H 36 H Blood Pressure 106/51 L 94/58 L 109/79 Pulse Oximetry 87 L 90 L 90 L 05/11/18 16:14 05/11/18 18:08 05/11/18 19:00 Temperature 97.5 F L Pulse Rate 94 H 106 H 89 Respiratory Rate 34 H 43 H 22 Blood Pressure 99/64 L 117/87 Pulse Oximetry 93 L 92 L 90 L 05/11/18 20:00 05/11/18 20:37 05/11/18 21:00 Temperature 98.8 F Pulse Rate 105 H 89 95 H Respiratory Rate 22 19 25 H Blood Pressure 103/57 L 104/60 Pulse Oximetry 92 L 90 L 05/11/18 22:00 05/11/18 23:00 05/12/18 00:00 Temperature 98.9 F Pulse Rate 93 H 92 H 95 H Respiratory Rate 18 22 18 Blood Pressure 124/70 132/74 Pulse Oximetry 92 L 89 L 91 L 05/12/18 00:29 05/12/18 01:00 05/12/18 02:00 Temperature Pulse Rate 76 78 Respiratory Rate 34 H 22 Blood Pressure 118/68 Pulse Oximetry 95 94 L 05/12/18 03:00 05/12/18 03:30 05/12/18 03:31 Temperature Pulse Rate 80 84 Respiratory Rate 25 H 22 Blood Pressure 121/67 Pulse Oximetry 96 97 05/12/18 04:00 05/12/18 04:58 05/12/18 06:00 Temperature 97.4 F L Pulse Rate 74 80 77 Respiratory Rate 27 H 22 Blood Pressure 119/61 119/61 115/71 Pulse Oximetry 95 90 L Intake & Output 05/11/18 05/12/18 05/12/18 18:59 06:59 18:59 Intake Total 650 / 650 570 / 570 Output Total 820 / 820 1100 / 1100 Balance -170 / -170 -530 / -530 Intake: IV 350 / 350 250 / 250 Azithromycin Inj 500 MG In NS 250 / 250 Inj 250 ML @ 250 mls/hr IV.SIG Q24H [facility] Rx#:[id number] Vancomycin Inj 1,000 MG In NS 250 / 250 Inj 250 ML @ 250 mls/hr IV.SIG Q24H [facility] Rx#:[id number] Rocephin Inj 2,000 MG In NS Inj 100 / 100 100 ML @ 200 mls/hr IV.SIG Q24H [facility] Rx#:[id number] Oral 300 / 300 320 / 320 Output: Urine 820 / 820 1100 / 1100 Other: Date of Last Bowel Movement 05/11/18 05/12/18 # Bowel Movements 1 Narrative: GENERAL: 87-year-old male currently resting in bed in no acute distress SKIN: Warm and dry. Few scattered ecchymoses bilateral upper extremities. CARDIOVASCULAR: Regular rate and rhythm. S1, S2. No S4. Without murmur RESPIRATORY: Few coarse rhonchorous breath sounds patient bases bilaterally. No wheezing. GASTROINTESTINAL: Abdomen soft, non-tender, nondistended. Hypoactive bowel sounds appreciated. MUSCULOSKELETAL: Extremities without clubbing, cyanosis, or edema. NEUROLOGICAL: Awake and alert. No obvious cranial nerve deficits. Motor grossly within normal limits. Five out of 5 muscle strength in the arms and legs. - Urinary Catheter Management Indwelling Urethral Catheter Cath placed during this visit: yes, but has since been removed by the nurse Reason for continuing: Not indwelling catheter Insertion date: 05/09/18 Insertion time: 17:45 Removal date: 05/09/18 Removal time: 12:45 Straight Cath placed during this visit: no Reason for continuing: Not indwelling catheter Results - Labs CBC & Chem 7: 05/11/18 09:11 05/12/18 04:25 Laboratory Results - last 24 hr 05/08/18 05/11/18 05/11/18 20:00 08:08 12:03 Sodium 143 Potassium 3.6 Chloride 110 H Carbon Dioxide 20.1 L Anion Gap 13 BUN 22 H Creatinine 0.95 Estimated GFR 75 L POC Glucose 132 H Random Glucose 133 H Calcium 7.9 L Phosphorus 2.9 D Magnesium Total Bilirubin 0.3 AST 44 H ALT 23 Alkaline Phosphatase 84 Total Protein 6.4 Albumin 2.0 L Vancomycin Trough C. pneumoniae IgG Titer <1:64 C. pneumoniae IgA Titer <1:16 C. pneumoniae IgM Titer <1:10 C. pneumoniae Ab Inter 05/11/18 05/11/18 05/12/18 16:50 19:27 00:12 Sodium Potassium Chloride Carbon Dioxide Anion Gap BUN Creatinine Estimated GFR POC Glucose 169 H 134 H Random Glucose Calcium Phosphorus Magnesium Total Bilirubin AST ALT Alkaline Phosphatase Total Protein Albumin Vancomycin Trough 5.9 C. pneumoniae IgG Titer C. pneumoniae IgA Titer C. pneumoniae IgM Titer C. pneumoniae Ab Interp 05/12/18 05/12/18 04:25 05:53 Sodium 142 Potassium 3.3 L Chloride 108 H Carbon Dioxide 25.3 Anion Gap 9 BUN 19 H Creatinine 0.78 Estimated GFR Greater than 89 POC Glucose 138 H Random Glucose 145 H Calcium 7.7 L Phosphorus Magnesium 1.6 Total Bilirubin AST ALT Alkaline Phosphatase Total Protein Albumin Vancomycin Trough C. pneumoniae IgG Titer C. pneumoniae IgA Titer C. pneumoniae IgM Titer C. pneumoniae Ab Inter Microbiology 05/08/18 16:10 Blood - Peripheral Aerobic Blood Culture - Preliminary No growth in 3 days 05/08/18 16:10 Blood - Peripheral Anaerobic Blood Culture - Preliminary No growth in 3 days 05/08/18 16:05 Blood - Peripheral Aerobic Blood Culture - Preliminary No growth in 3 days 05/08/18 16:05 Blood - Peripheral Anaerobic Blood Culture - Preliminary No growth in 3 days - Procedures none
[2018-05-12] MEDS: dilTIAZem 30 MG Tablet PO SCH ×4 (10:35→20:52)
[2018-05-12] MEDS: TRELEGY ELLIPTA INH SCH (10:35)
[2018-05-12] MEDS: Allopurinol 100 MG Tablet PO SCH (10:36)
[2018-05-12] MEDS: Senna/Docusate Sodium 8.6/50 MG Tablet PO SCH ×2 (10:50→20:52)
[2018-05-12] MEDS ORDERED: Vancomycin Inj 1,250 MG in Sodium Chlor 0.9% Inj 250 ML IV.SIG SCH (12:00)
--- NOTE | 2018-05-12 12:15 | P.PN ---
Subjective Interval history: Consulted by critical care medicine for medical management transfer care. Chart reviewed. Discussed with nursing and respiratory therapist. Patient denies shortness of breath. Currently on partial rebreather. He was on BiPAP overnight. Physical Exam Vital signs: Vital Signs 05/11/18 13:00 05/11/18 14:00 05/11/18 15:00 Temperature Pulse Rate 96 H 94 H 96 H Respiratory Rate 43 H 35 H 36 H Blood Pressure 106/51 L 94/58 L 109/79 Pulse Oximetry 87 L 90 L 90 L 05/11/18 16:14 05/11/18 18:08 05/11/18 19:00 Temperature 97.5 F L Pulse Rate 94 H 106 H 89 Respiratory Rate 34 H 43 H 22 Blood Pressure 99/64 L 117/87 Pulse Oximetry 93 L 92 L 90 L 05/11/18 20:00 05/11/18 20:37 05/11/18 21:00 Temperature 98.8 F Pulse Rate 105 H 89 95 H Respiratory Rate 22 19 25 H Blood Pressure 103/57 L 104/60 Pulse Oximetry 92 L 90 L 05/11/18 22:00 05/11/18 23:00 05/12/18 00:00 Temperature 98.9 F Pulse Rate 93 H 92 H 95 H Respiratory Rate 18 22 18 Blood Pressure 124/70 132/74 Pulse Oximetry 92 L 89 L 91 L 05/12/18 00:29 05/12/18 01:00 05/12/18 02:00 Temperature Pulse Rate 76 78 Respiratory Rate 34 H 22 Blood Pressure 118/68 Pulse Oximetry 95 94 L 05/12/18 03:00 05/12/18 03:30 05/12/18 03:31 Temperature Pulse Rate 80 84 Respiratory Rate 25 H 22 Blood Pressure 121/67 Pulse Oximetry 96 97 05/12/18 04:00 05/12/18 04:58 05/12/18 06:00 Temperature 97.4 F L Pulse Rate 74 80 77 Respiratory Rate 27 H 22 Blood Pressure 119/61 119/61 115/71 Pulse Oximetry 95 90 L 05/12/18 08:00 Temperature Pulse Rate 70 Respiratory Rate 22 Blood Pressure 120/60 Pulse Oximetry 97 Intake & Output 05/11/18 05/12/18 05/12/18 18:59 06:59 18:59 Intake Total 650 / 650 570 / 570 Output Total 820 / 820 1100 / 1100 Balance -170 / -170 -530 / -530 Intake: IV 350 / 350 250 / 250 Azithromycin Inj 500 MG In NS 250 / 250 Inj 250 ML @ 250 mls/hr IV.SIG Q24H [facility] Rx#:[id number] Vancomycin Inj 1,000 MG In NS 250 / 250 Inj 250 ML @ 250 mls/hr IV.SIG Q24H [facility] Rx#:[id number] Rocephin Inj 2,000 MG In NS Inj 100 / 100 100 ML @ 200 mls/hr IV.SIG Q24H [facility] Rx#:[id number] Oral 300 / 300 320 / 320 Output: Urine 820 / 820 1100 / 1100 Other: Date of Last Bowel Movement 05/11/18 05/12/18 05/12/18 # Bowel Movements 1 Narrative: GENERAL: 87-year-old male on partial SKIN: Warm and dry. Few scattered ecchymoses bilateral upper extremities. CARDIOVASCULAR: Regular rate and rhythm. S1, S2. No S4. Without murmur RESPIRATORY: Few coarse rhonchorous breath sounds patient bases bilaterally. No wheezing. GASTROINTESTINAL: Abdomen soft, non-tender, nondistended. Normoactive bowel sounds appreciated. MUSCULOSKELETAL: Extremities without clubbing, cyanosis, or edema. NEUROLOGICAL: Awake and alert. No obvious cranial nerve deficits. Motor grossly within normal limits. Five out of 5 muscle strength in the arms and legs. - Urinary Catheter Management Indwelling Urethral Catheter Cath placed during this visit: yes, but has since been removed by the nurse Reason for continuing: Not indwelling catheter Insertion date: 05/09/18 Insertion time: 17:45 Removal date: 05/09/18 Removal time: 12:45 Straight Cath placed during this visit: no Reason for continuing: Not indwelling catheter Results - Labs CBC & Chem 7: 05/11/18 09:11 05/12/18 04:25 Laboratory Results - last 24 hr 05/08/18 05/11/18 05/11/18 20:00 08:08 16:50 Sodium 143 Potassium 3.6 Chloride 110 H Carbon Dioxide 20.1 L Anion Gap 13 BUN 22 H Creatinine 0.95 Estimated GFR 75 L POC Glucose 169 H Random Glucose 133 H Calcium 7.9 L Phosphorus 2.9 D Magnesium Total Bilirubin 0.3 AST 44 H ALT 23 Alkaline Phosphatase 84 Total Protein 6.4 Albumin 2.0 L Vancomycin Trough C. pneumoniae IgG Titer <1:64 C. pneumoniae IgA Titer <1:16 C. pneumoniae IgM Titer <1:10 C. pneumoniae Ab Interp 05/11/18 05/12/18 05/12/18 19:27 00:12 04:25 Sodium 142 Potassium 3.3 L Chloride 108 H Carbon Dioxide 25.3 Anion Gap 9 BUN 19 H Creatinine 0.78 Estimated GFR Greater than 89 POC Glucose 134 H Random Glucose 145 H Calcium 7.7 L Phosphorus Magnesium 1.6 Total Bilirubin AST ALT Alkaline Phosphatase Total Protein Albumin Vancomycin Trough 5.9 C. pneumoniae IgG Titer C. pneumoniae IgA Titer C. pneumoniae IgM Titer C. pneumoniae Ab Interp 05/12/18 05:53 Sodium Potassium Chloride Carbon Dioxide Anion Gap BUN Creatinine Estimated GFR POC Glucose 138 H Random Glucose Calcium Phosphorus Magnesium Total Bilirubin AST ALT Alkaline Phosphatase Total Protein Albumin Vancomycin Trough C. pneumoniae IgG Titer C. pneumoniae IgA Titer C. pneumoniae IgM Titer C. pneumoniae Ab Inter Microbiology 05/08/18 16:10 Blood - Peripheral Aerobic Blood Culture - Preliminary No growth in 4 days 05/08/18 16:10 Blood - Peripheral Anaerobic Blood Culture - Preliminary No growth in 4 days 05/08/18 16:05 Blood - Peripheral Aerobic Blood Culture - Preliminary No growth in 4 days 05/08/18 16:05 Blood - Peripheral Anaerobic Blood Culture - Preliminary No growth in 4 days - Imaging ITS Impressions Head CT 05/08/18 00:00 CONCLUSION: 1. No acute intracranial abnormalities. . Chest CTA 05/08/18 16:02 CONCLUSION: 1. Suboptimal exam but no definite evidence for pulmonary embolus. 2. Worsening bilateral lung consolidation especially posteriorly with air bronchograms. Also worsening adenopathy and possible 2.1 cm mass or enlarged lymph node in the right hilar region. Cannot exclude underlying neoplasm. Abdomen/Bladder Ultrasound 05/09/18 00:00 CONCLUSION: 1. Mildly echogenic without hydronephrosis or mass. Videofluoroscopic Swallow 05/09/18 00:00 CONCLUSION: Please see detailed report by speech pathology. Chest X-Ray 05/11/18 07:15 CONCLUSION: Bilateral areas of infiltrate and small effusions primary consideration would be congestive failure though underlying pneumonia is not excluded. Appearance of the parenchyma has mildly worsened compared to previous dated . - Procedures none - ABG Attestation: I personally reviewed and interpreted this ABG as follows: Assessment and Plan - Plan This is an 87-year-old male patient with: Acute respiratory failure/hypoxic hypercapnic suspect secondary to legionella pneumonia History of chronic recurrent pneumonia History of COPD/tobaccoism Obstructive sleep apnea on nocturnal BiPAP -Leukocytosis noted, trending down. May be elevated secondary to steroids. -Blood cultures negative to date, continue to monitor. Sputum cultures negative. -BiPAP as needed, supplemental O2 as needed. -Chest x-ray revealed the lungs to be symmetrically aerated without evidence of mass, infiltrate or effusion other than mild consolidation both lung bases -CT pulmonary angiogram revealed no central pulmonary. Bilateral lower lobe infiltrates/consolidation. Right hilar lymphadenopathy 2.1 cm vs mass, pulmo ff -Urine pneumococcal Ag negative, urine Legionella antigen positive. Mycoplasma and Chlamydia pending. -Currently on vancomycin, ceftriaxone, azithromycin and metronidazole. Will de- escalate and switch to Levaquin -Resume fluticasone/umeclidinium/Vilanterol daily -Albuterol/ipratropium aerosols every 4 hours with albuterol aerosols every 2 hours as needed dyspnea -Methylprednisolone succinate 40 mg IV every 8 hours -05/10 revealed infiltrates with pulmonary edema. CXR on 05/11 was showing some edema. Will increase Lasix to twice a day secondary to worsening respiratory status requiring partial rebreather today Elevated troponin Right bundle branch block Coronary artery disease status post CABG x5 History of coronary artery stent Essential hypertension Hyperlipidemia History of paroxysmal atrial fibrillation currently in sinus tachycardia History of AAA -EKG in the ED revealed sinus tachycardia. Rate 130s. Borderline first-degree AV block. Right bundle branch block. -Will hold off on cardiology consultation as likely type II demand ischemia from tachycardia unless new acute cardiac findings -Home medication is diltiazem 120 mg daily for hypertension. Currently 15 mg 4 times daily -Resume aspirin 81 mg daily -Holding isosorbide mononitrate 60 mg daily in light of borderline blood pressures -Continue pravastatin 80 mg daily/home medication for dyslipidemia -Echocardiogram 2017 revealed EF around 50-55%. Left atrial dilatation. Moderate MR. PAP 40-50 mmHg Gastroesophageal reflux disease P.o. diet as tolerated Modified barium swallow with speech therapy Patient is on omeprazole 20 mg daily at home. Continue pantoprazole 40 mg daily Docusate sodium/senna 1 tablet twice daily for bowel regimen Acute kidney injury. Resolving - Neg urine eosinophils - Ultrasound w/o block - Continue crystalloid resuscitation - Avoid nephrotoxic medications - Monitor urine output Normocytic anemia -Monitor CBC. Follow trends -No indication for transfusion of blood products at this time. -Previously on apixaban but off due to frequent falls Hypomagnesia Hypokalemia -Improving. Replace as indicated. Follow BMP. Hypothyroidism Gout -Continue levothyroxine at 25 mcg daily. TSH 0.9 -Continue allopurinol 100 mg daily Restless leg syndrome Gait and balance disorder -Acetaminophen 650 mg by mouth every 6 hours as needed fever -Hydrocodone/acetaminophen 5/325 1 tablet every 4 hours as needed pain 1 through 5 -Morphine sulfate 2 mg IV every 2 hours as needed pain 6 through 10 -Ropinirole 0.5 mg 3 times daily for restless leg syndrome -CT brain revealed no acute intracranial findings -Physical therapy/occupational therapy evaluate and treat GI prophylaxis: Pantoprazole. DVT prophylaxis: SCD. Heparin. Discharge Planning: Keep in ICU
[2018-05-12] MEDS ORDERED: Potassium Bicarbonate 25 MEQ Effervescent Tablet PO ONE (12:30)
--- NOTE | 2018-05-12 17:28 | P.PN ---
Subjective Interval history: he is coughing and has some wheezing. was hypoxic last nite and briefly on a NRB mask. Now on N/C 5L. he has decided not to be on life support machines. Has loose stools since this AM Physical Exam Vital signs: Vital Signs 05/11/18 18:08 05/11/18 19:00 05/11/18 20:00 Temperature 98.8 F Pulse Rate 106 H 89 105 H Respiratory Rate 43 H 22 22 Blood Pressure 117/87 103/57 L Pulse Oximetry 92 L 90 L 92 L 05/11/18 20:37 05/11/18 21:00 05/11/18 22:00 Temperature Pulse Rate 89 95 H 93 H Respiratory Rate 19 25 H 18 Blood Pressure 104/60 124/70 Pulse Oximetry 90 L 92 L 05/11/18 23:00 05/12/18 00:00 05/12/18 00:29 Temperature 98.9 F Pulse Rate 92 H 95 H Respiratory Rate 22 18 Blood Pressure 132/74 Pulse Oximetry 89 L 91 L 95 05/12/18 01:00 05/12/18 02:00 05/12/18 03:00 Temperature Pulse Rate 76 78 80 Respiratory Rate 34 H 22 25 H Blood Pressure 118/68 121/67 Pulse Oximetry 94 L 96 05/12/18 03:30 05/12/18 03:31 05/12/18 04:00 Temperature 97.4 F L Pulse Rate 84 74 Respiratory Rate 22 27 H Blood Pressure 119/61 Pulse Oximetry 97 95 05/12/18 04:58 05/12/18 06:00 05/12/18 07:00 Temperature 98 F Pulse Rate 80 86 80 Respiratory Rate 22 22 27 H Blood Pressure 119/61 115/71 114/66 Pulse Oximetry 90 L 93 L 05/12/18 08:00 05/12/18 09:00 05/12/18 09:35 Temperature Pulse Rate 80 87 Respiratory Rate 20 20 Blood Pressure 120/61 110/78 Pulse Oximetry 97 83 L 05/12/18 10:00 05/12/18 11:03 05/12/18 12:00 Temperature Pulse Rate 86 82 76 Respiratory Rate 29 H 24 35 H Blood Pressure 103/51 L 113/59 L 123/69 Pulse Oximetry 94 L 93 L 97 05/12/18 13:00 05/12/18 13:14 05/12/18 13:19 Temperature 97.5 F L Pulse Rate 76 94 H 84 Respiratory Rate Blood Pressure 123/59 L 117/58 L 112/64 Pulse Oximetry 99 96 87 L 05/12/18 14:00 05/12/18 15:00 05/12/18 15:41 Temperature Pulse Rate 80 81 Respiratory Rate 29 H 19 Blood Pressure 117/62 110/65 Pulse Oximetry 96 91 L Intake & Output 05/11/18 05/12/18 05/12/18 18:59 06:59 18:59 Intake Total 650 / 650 570 / 570 150 / 150 Output Total 820 / 820 1100 / 1100 Balance -170 / -170 -530 / -530 150 / 150 Intake: IV 350 / 350 250 / 250 150 / 150 Azithromycin Inj 500 MG In NS 250 / 250 Inj 250 ML @ 250 mls/hr IV.SIG Q24H [facility] Rx#:[id number] Levaquin 750 mg Premix Inj 150 150 / 150 ML @ 100 mls/hr IV.SIG Q24H [facility] Rx#:[id number] Vancomycin Inj 1,000 MG In NS 250 / 250 Inj 250 ML @ 250 mls/hr IV.SIG Q24H [facility] Rx#:[id number] Rocephin Inj 2,000 MG In NS Inj 100 / 100 100 ML @ 200 mls/hr IV.SIG Q24H [facility] Rx#:[id number] Oral 300 / 300 320 / 320 Output: Urine 820 / 820 1100 / 1100 Other: Date of Last Bowel Movement 05/11/18 05/12/18 05/12/18 # Bowel Movements 1 GENERAL: Elderly W/M alert , dyspneic. SKIN: Warm and dry. HEAD: Atraumatic. Normocephalic. EYES: Pupils equal and round. No scleral icterus. No injection or drainage. ENT: No nasal bleeding or discharge. Mucous membranes pink and moist. NECK: Trachea midline. No JVD. CARDIOVASCULAR: Regular rate and rhythm. RESPIRATORY: No accessory muscle use. Basal crackles and wheezes. Breath sounds equal bilaterally. GASTROINTESTINAL: Abdomen soft, non-tender, nondistended. Hepatic and splenic margins not palpable. MUSCULOSKELETAL: Extremities without clubbing, cyanosis, or edema. No obvious deformities. NEUROLOGICAL: Awake and alert. No obvious cranial nerve deficits. Motor grossly within normal limits. Five out of 5 muscle strength in the arms and legs. Normal speech. PSYCHIATRIC: Appropriate mood and affect; insight and judgment normal. - Urinary Catheter Management Indwelling Urethral Catheter Cath placed during this visit: yes, but has since been removed by the nurse Reason for continuing: Not indwelling catheter Insertion date: 05/09/18 Insertion time: 17:45 Removal date: 05/09/18 Removal time: 12:45 Straight Cath placed during this visit: no Reason for continuing: Not indwelling catheter Results - Labs CBC & Chem 7: 05/11/18 09:11 05/12/18 04:25 Laboratory Results - last 24 hr 05/08/18 05/11/18 05/12/18 20:00 19:27 00:12 Sodium Potassium Chloride Carbon Dioxide Anion Gap BUN Creatinine Estimated GFR POC Glucose 134 H Random Glucose Calcium Magnesium Vancomycin Trough 5.9 C. pneumoniae IgG Titer <1:64 C. pneumoniae IgA Titer <1:16 C. pneumoniae IgM Titer <1:10 C. pneumoniae Ab Inter 05/12/18 05/12/18 05/12/18 04:25 05:53 12:44 Sodium 142 Potassium 3.3 L Chloride 108 H Carbon Dioxide 25.3 Anion Gap 9 BUN 19 H Creatinine 0.78 Estimated GFR Greater than 89 POC Glucose 138 H 140 H Random Glucose 145 H Calcium 7.7 L Magnesium 1.6 Vancomycin Trough C. pneumoniae IgG Titer C. pneumoniae IgA Titer C. pneumoniae IgM Titer C. pneumoniae Ab Inter 05/12/18 17:07 Sodium Potassium Chloride Carbon Dioxide Anion Gap BUN Creatinine Estimated GFR POC Glucose 167 H Random Glucose Calcium Magnesium Vancomycin Trough C. pneumoniae IgG Titer C. pneumoniae IgA Titer C. pneumoniae IgM Titer C. pneumoniae Ab Inter Microbiology 05/08/18 16:10 Blood - Peripheral Aerobic Blood Culture - Preliminary No growth in 4 days 05/08/18 16:10 Blood - Peripheral Anaerobic Blood Culture - Preliminary No growth in 4 days 05/08/18 16:05 Blood - Peripheral Aerobic Blood Culture - Preliminary No growth in 4 days 05/08/18 16:05 Blood - Peripheral Anaerobic Blood Culture - Preliminary No growth in 4 days Assessment and Plan - Assessment (1) Aspiration pneumonia Code(s): J69.0 - Pneumonitis due to inhalation of food and vomit Status: Acute (2) Acute hypoxemic respiratory failure Code(s): J96.01 - Acute respiratory failure with hypoxia Status: Acute (3) SIRS (systemic inflammatory response syndrome) Code(s): R65.10 - Systemic inflammatory response syndrome (SIRS) of non- infectious origin without acute organ dysfunction Status: Acute (4) Right bundle branch block Code(s): I45.10 - Unspecified right bundle-branch block Status: Chronic (5) Sinus tachycardia Code(s): R00.0 - Tachycardia, unspecified Status: Acute (6) COPD (chronic obstructive pulmonary disease) Code(s): J44.9 - Chronic obstructive pulmonary disease, unspecified Status: Chronic (7) Paroxysmal atrial fibrillation Code(s): I48.0 - Paroxysmal atrial fibrillation Status: Suspected (8) Coronary artery disease Code(s): I25.10 - Atherosclerotic heart disease of [place] coronary artery without angina pectoris Status: Chronic (9) Essential hypertension Code(s): I10 - Essential (primary) hypertension Status: Chronic (10) Hypothyroidism Code(s): E03.9 - Hypothyroidism, unspecified Status: Chronic (11) Acute kidney injury Code(s): N17.9 - Acute kidney failure, unspecified Status: Acute (12) Normocytic anemia Code(s): D64.9 - Anemia, unspecified Status: Acute - Plan 1. Cont antibiotics 2. Wean O2 to 5 L. 3. BIPAP 12/5 cm at HS if tolerated. 4. Cont Duoneb nebs qid prn 5. Check stool for C Diff toxin 6. Solumderol 40 mg IV Q8H 7. PT Evaluation and rehab. 8. Lasix 20 mg daily. 9. patient wishes to be DNR but Full active treatment (6) COPD (chronic obstructive pulmonary disease) Qualifiers: COPD type: unspecified COPD Qualified Code(s): J44.9 - Chronic obstructive pulmonary disease, unspecified (8) Coronary artery disease Qualifiers: Coronary Disease-Associated Artery/Lesion type: unspecified vessel or lesion type [place] vs. transplanted heart: [place] heart Associated angina: without angina Qualified Code(s): I25.10 - Atherosclerotic heart disease of [place] coronary artery without angina pectoris (10) Hypothyroidism Qualifiers: Hypothyroidism type: unspecified Qualified Code(s): E03.9 - Hypothyroidism, unspecified
[2018-05-13] MEDS: Insulin NovoLOG Aspart Correctional Sugar Inj SQ SCH ×4 (00:30→18:23)
[2018-05-13] MEDS: Chlorhexidine Gluconate 2% 1 Pack (2 Cloths) TOPICAL SCH (03:57)
[2018-05-13 05:32] LABS: Potassium 3.5 meq/L (3.5-5.1)
[2018-05-13 05:35] LABS: Calcium 7.7 mg/dL (8.5-10.1); Carbon Dioxide 26.3 meq/L (21.0-32.0); Magnesium 1.7 mg/dL (1.5-2.5)
[2018-05-13] MEDS: MethylPREDNISolone Sod Succinate Inj 40 MG/ML Vial IV.PUSH SCH ×3 (05:36→21:23)
[2018-05-13] MEDS: Heparin - SQ 10,000 UNITS/ML Vial SQ SCH ×2 (05:37→18:23)
[2018-05-13] MEDS: dilTIAZem 30 MG Tablet PO SCH ×4 (08:26→20:39)
[2018-05-13] MEDS: Senna/Docusate Sodium 8.6/50 MG Tablet PO SCH (08:28)
[2018-05-13] MEDS: Allopurinol 100 MG Tablet PO SCH (08:32)
[2018-05-13] MEDS: TRELEGY ELLIPTA INH SCH (08:38)
--- NOTE | 2018-05-13 14:15 | P.CONPAL ---
Consult Service: Palliative Care Requesting Physician: Gabriel Denise Reason for Consult: a. To assist with evaluation and management of symptoms including: Cough, weakness, dyspnea b. To assist medical decision maker(s) with: better understanding of current medical conditions; weighing benefits/burdens of medical treatment options; making medical treatment decisions. Primary Care Provider: Jem Kaufman MD History of Present Illness History of Present Illness: This is an 87-year-old male with a past medical history of chronic recurrent pneumonia, atrial fibrillation, obstructive sleep apnea requiring CPAP coronary artery disease status post CABG x5, hypertension, hyperlipidemia, hypothyroidism , GERD, RLS, chronic aortic aneurysm, arthritis and gout admitted 05/08 with acute hypoxic respiratory failure, SIRS Diagnostic data on admission * Electrocardiogram shows sinus tachycardia, 122 bpm, right bundle branch block pattern, left anterior fascicular block pattern, LVH pattern. * Chest x-ray shows status post median sternotomy. Lungs grossly clear except for chronic bibasilar changes. * CTA chest with contrast shows suboptimal exam but no definite evidence for pulmonary embolus. Worsening bilateral lung consolidation, especially posteriorly with air bronchograms. Also worsening adenopathy and possible 2.1 cm mass or enlarged lymph node in the right hilar region. Cannot exclude underlying neoplasm. * CT of the head without contrast shows no intracranial abnormalities. * Urinalysis shows clear bossman specimen pH 5.5, specific gravity greater than 1.030, protein 100, ketones 15, moderate occult blood, negative nitrate and leukocyte esterase, few bacteria, culture indicated. * ABG showed pH 7.47, PCO2 22, PaO2 91, bicarbonate 16, base excess -7.2, saturation 96% on BiPAP 50% FiO2. * Lactic acid 3.1, B natruretic peptide 120, sodium 131, potassium 3.8, BUN 24, creatinine 1.40, alkaline phosphatase 108, T CK 190, troponin 0 0.04, albumin 2.6. * WBC 23.7, hemoglobin 14.2, hematocrit 42.2 platelets 207, PT 12.1, INR 1.2, APTT 36.2 * Nasal wash negative for influenza A and B antigen. * Vital signs on admission temperature 98.3, pulse rate 136, respiratory rate 28 , blood pressure 112/62, pulse ox 86% on room air. * Ultrasound of the kidney and bladder shows mildly echogenic without hydronephrosis or mass. * 2D echocardiogram shows normal LV size with normal wall thickness. Systolic function low normal with estimated EF 50-55%, trileaflet aortic valve with aortic sclerosis no other significant valvular dysfunction. On 05/09 the patient underwent a barium swallow showing silent aspiration of thin liquids and nectar thick liquids with moderate to severe dysphasia, mild oral dysphasia tolerating pured consistency solids and honey thick liquids without overt aspiration. Speech therapy recommended GI consultation to rule out gastroesophageal reflux disease as a cause for patient's dysphasia. He remains in the intensive care unit now on 5 L nasal cannula with fluctuating oxygen saturations. On my eval he is OOB to chair, at bedside. He is wearing NC, SOB to conversation. He is alert, has some mild confusion. He denies SOB at rest but admits SOB with any exertion. He denies pain. Admits anxiety. Per this has been worsening. he admits sleep apnea but has never worn his mask. he has lost 40 lbs in 7 months. 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 Social alcohol use. No history of prescription or illicit drug use. Family history Significant for heart disease in half sister. Mother at 81 from natural causes. Father is estranged. . Function/Cognitive Trajectory: Per physical therapy assessment 04/16/2017 patient was able to ambulate unaided for 80 feet with contact-guard for mild unsteadiness. At today's assessment, patient was able to dangle for 3 minutes then ambulate 3 feet forward and backward with assistance and required rest breaks. He has been. Same chronic, recurrent pneumonia, now diagnosed as silent aspiration. Pt has been weak in the last month and has had worsening dyspnea. . Review of Systems Constitutional: Reports weight loss Eyes: Denies blind spots Ears, Nose, Mouth, and Throat: Reports abnormal hearing Cardiovascular: Reports irregular heart rhythm, Denies chest pain Respiratory: Reports chest congestion, Reports cough, Reports shortness of breath, Reports shortness of breath with activity Gastrointestinal: Denies abdominal pain Musculoskeletal: Reports muscle weakness Skin/Breast: Denies bleeding lesions Neurologic: Reports unsteadiness, Reports weakness Psychiatric: Reports anxiety, Denies depression Hematologic/Lymphatic: Denies easy bleeding PMFSH - History History 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 - Medical History Medical History: Medical History (Last Reviewed 05/11/18 @ 08:33 by Trevor Hay) Abdominal aortic aneurysm Abnormality of gait due to impairment of balance Chronic pneumonia Coronary artery disease Essential hypertension Gastroesophageal reflux disease Gout History of atrial fibrillation History of cataract Hyperlipidemia Hypothyroidism Osteoarthritis Restless leg syndrome - Surgical History Surgical History: Surgical History (Last Reviewed 05/11/18 @ 08:33 by Trevor Hay) History of cholecystectomy History of coronary artery bypass graft History of coronary artery stent placement History of tonsillectomy - Family History Family History: Family History (Last Reviewed 05/09/18 @ 08:08 by Eliza Mcgraw) Other Family history of coronary artery disease Family history pertaining to father Patient's mother is - Tobacco History Second Hand Smoke Exposure: No Smoking Status: Former smoker - Alcohol History How Often Do You Have a Drink Containing Alcohol: Monthly or less - Substance Use History Substance History: No History of Abuse - Travel History Recent Travel in the [place] Within the Last 8 Weeks: No Recent Travel Out of the Country Within the Last 8 Weeks: No - Immunization History Tetanus Immunization: Unsure Hx Influenza Vaccine This Season: No Medications and Allergies Allergies Allergy/AdvReac Type Severity Reaction Status Date / Time peanut oil Allergy Severe Diarrhea Verified 05/08/18 15:57 peanut Allergy Intermediate Diarrhea Verified 12/02/17 02:42 Home Medications Medication Instructions Recorded Confirmed Type albuterol sulfate 1 puff INHALATION QID 05/08/18 05/08/18 History allopurinol 100 mg PO DAILY 05/08/18 05/08/18 History aspirin [Aspir-81] 81 mg PO DAILY 05/08/18 05/08/18 History cholecalciferol (vitamin D3) 1,000 unit PO DAILY 05/08/18 05/08/18 History [Vitamin D3] diltiazem HCl 120 mg PO DAILY 05/08/18 05/08/18 History [id number] 1 inh INHALATION DAILY 05/08/18 05/08/18 History [Trelegy Ellipta] indomethacin 25 mg PO BID PRN 05/08/18 05/08/18 History isosorbide mononitrate 60 mg PO DAILY 05/08/18 05/08/18 History levothyroxine 25 mcg PO DAILY 05/08/18 05/08/18 History omeprazole 20 mg PO DAILY 05/08/18 05/08/18 History pravastatin 80 mg PO DAILY 05/08/18 05/08/18 History ropinirole 0.5 mg PO TID PRN 05/08/18 05/08/18 History Active Medications: Active Medications Acetaminophen (Tylenol) 650 mg PO Q6H PRN PRN Reason: Fever >101f Hydrocodone Bitart/Acetaminophen (Tryon 5/325) 1 tab PO Q4H PRN PRN Reason: PAIN SCALE 1 TO 5 Al Hydroxide/Mg Hydroxide (Milk Of Natividad Liq) 30 ml PO Q12H PRN PRN Reason: Mild Constipation Albuterol (Albuterol Neb (Prn)) 2.5 mg NEB Q2HR NEB PRN PRN Reason: SHORTNESS OF BREATH/WHEEZING Albuterol (Duoneb Neb ([facility])) 1 ampul NEB Q6HR NEB [facility] Last Admin: 05/13/18 10:49 Dose: Not Given Allopurinol (Zyloprim) 100 mg PO DAILY [facility] Last Admin: 05/13/18 08:32 Dose: 100 mg Aspirin (Ecotrin) 81 mg PO DAILY [facility] Last Admin: 05/13/18 08:27 Dose: 81 mg Bisacodyl (Dulcolax Supp) 10 mg RECTAL DAILY PRN PRN Reason: SEVERE CONSITIPATION Chlorhexidine Gluconate (Chlorhexidine 2% Cloth) 3 pack TOPICAL DAILY@0400 [facility] Stop: 05/14/18 03:59 Last Admin: 05/13/18 03:57 Dose: 3 pack Chlorhexidine Gluconate (Chlorhexidine 2% Cloth) 3 pack TOPICAL DAILY@0400 PRN PRN Reason: Extra cloth needed Stop: 05/14/18 03:59 Dextrose (D50w Vial) 50 ml IV.PUSH UNSCH PRN PRN Reason: PER HYPOGLYCEMIA PROTOCOL Diltiazem HCl (Cardizem) 15 mg PO QID [facility] Last Admin: 05/13/18 08:26 Dose: 15 mg Furosemide (Lasix Inj) 20 mg IV.PUSH DAILY [facility] Glucagon (Glucagon Inj) 1 mg OTHER PRN PRN PRN Reason: for Hypoglycemia Protocol Heparin Sodium (Porcine) (Heparin Inj) 5,000 units SQ Q12H [facility] Last Admin: 05/13/18 05:37 Dose: 5,000 units Levofloxacin/Dextrose (Levaquin 750 Mg Premix Inj) 150 mls @ 100 mls/hr IV.SIG Q24H [facility] Last Infusion: 05/12/18 16:47 Dose: Infused Insulin Aspart (Novolog Insulin Correctional Sugar Inj) 0 unit SQ Q6HR [facility]; Protocol Last Admin: 05/13/18 11:22 Dose: Not Given Lactulose (Lactulose Liq) 30 ml PO DAILY PRN PRN Reason: SEVERE CONSITIPATION Levothyroxine Sodium (Synthroid) 25 mcg PO DAILY [facility] Last Admin: 05/13/18 08:28 Dose: 25 mcg Methylprednisolone Sodium Succinate (Solumedrol Inj) 40 mg IV.PUSH Q8HR [facility] Last Admin: 05/13/18 05:36 Dose: 40 mg Morphine Sulfate (Morphine Inj) 2 mg IV.PUSH Q2H PRN PRN Reason: PAIN SCALE 6 TO 10 Ondansetron HCl (Zofran Inj) 4 mg IV.PUSH Q6H PRN PRN Reason: NAUSEA OR VOMITING Pantoprazole Sodium (Protonix) 40 mg PO DAILY [facility] Last Admin: 05/13/18 08:27 Dose: 40 mg Pt Own: Trelegy Ellipta 100mcg/62. 5mcg/25mcg 0 each INH DAILY [facility] Last Admin: 05/13/18 08:38 Dose: 1 each Potassium Chloride (K-Dur) 20 meq PO BID [facility] Last Admin: 05/13/18 10:26 Dose: Not Given Pravastatin Sodium (Pravachol) 80 mg PO DAILY@2100 [facility] Last Admin: 05/12/18 20:52 Dose: 80 mg Ropinirole HCl (Requip) 0.5 mg PO Q8HR [facility] Last Admin: 05/13/18 05:36 Dose: 0.5 mg Sennosides (Senokot) 17.2 mg PO Q12H PRN PRN Reason: Moderate Constipation Sodium Chloride (Ns Flush) 2 ml IV.FLUSH PRN PRN PRN Reason: FLUSH AFTER USING IV ACCESS Sodium Chloride (Ns Flush) 2 ml IV.FLUSH BID [facility] Last Admin: 05/13/18 08:29 Dose: 2 ml Sodium Chloride (Ns Flush) 2 ml IV.FLUSH PRN PRN PRN Reason: FLUSH AFTER USING IV ACCESS Vitamin D (Vitamin D3) 1,000 unit PO DAILY [facility] Last Admin: 05/13/18 08:28 Dose: 1,000 unit Physical Exam Vital Signs: Vital Signs - 24 hr 05/12/18 14:00 05/12/18 15:00 05/12/18 15:41 Temperature Pulse Rate 80 81 Respiratory Rate 29 H 19 Blood Pressure 117/62 110/65 Pulse Oximetry 96 91 L 05/12/18 16:00 05/12/18 17:00 05/12/18 18:00 Temperature 98.1 F Pulse Rate 84 82 84 Respiratory Rate 31 H 45 H 40 H Blood Pressure 108/57 L 92/61 L 105/52 L Pulse Oximetry 89 L 92 L 86 L 05/12/18 19:00 05/12/18 19:50 05/12/18 20:00 Temperature 97.8 F Pulse Rate 88 110 H Respiratory Rate 18 22 Blood Pressure 114/61 114/61 Pulse Oximetry 92 L 93 L 92 L 05/12/18 21:00 05/12/18 21:20 05/12/18 22:00 Temperature Pulse Rate 76 80 83 Respiratory Rate 12 27 H 14 Blood Pressure 117/57 L Pulse Oximetry 93 L 93 L 05/12/18 23:00 05/13/18 00:00 05/13/18 01:00 Temperature 97.6 F Pulse Rate 77 79 78 Respiratory Rate 18 18 27 H Blood Pressure 115/61 Pulse Oximetry 92 L 92 L 91 L 05/13/18 02:00 05/13/18 03:00 05/13/18 03:52 Temperature 98.3 F Pulse Rate 78 68 67 Respiratory Rate 27 H 19 22 Blood Pressure 109/58 L 120/47 L Pulse Oximetry 93 L 05/13/18 04:00 05/13/18 05:00 05/13/18 06:00 Temperature 98.3 F Pulse Rate 74 84 86 Respiratory Rate 25 H 22 37 H Blood Pressure 117/53 L 114/62 126/71 Pulse Oximetry 98 91 L 91 L 05/13/18 06:01 05/13/18 07:01 05/13/18 08:00 Temperature 97.5 F L Pulse Rate 74 74 Respiratory Rate 28 H Blood Pressure 126/71 118/67 Pulse Oximetry 95 93 L 05/13/18 08:01 05/13/18 09:01 05/13/18 10:00 Temperature Pulse Rate 70 80 Respiratory Rate 25 H 28 H Blood Pressure 132/67 133/71 Pulse Oximetry 96 92 L 91 L 05/13/18 10:01 05/13/18 11:09 Temperature Pulse Rate 86 Respiratory Rate 35 H Blood Pressure 124/66 144/72 H Pulse Oximetry 91 L 85 L I&O: Intake & Output 05/11/18 05/12/18 05/13/18 05/14/18 06:59 06:59 06:59 06:59 Intake Total 4010 / 4010 1220 / 1220 870 / 870 Output Total 1350 / 1350 1920 / 1920 1999 Balance 2660 / 2660 -700 / -700 -1130 / -1130 Weight 163 lb 9.328 oz 157 lb 13.616 oz Physical Exam: CONSTITUTIONAL/GENERAL: This is a thin, somewhat frail appearing elderly male TUBES/LINES/DRAINS: NC, PIV SKIN: No jaundice, rashes, or lesions. Ecchymoses on upper extremities. No wounds seen anteriorly. Skin temperature appropriate. Not diaphoretic. HEAD: Atraumatic. Normocephalic. EYES: Pupils equal and round and reactive. Extraocular motions intact. No scleral icterus. No injection or drainage. Fundi not examined. ENT: Hearing grossly normal. Nose without bleeding or purulent drainage. CARDIOVASCULAR:irregular rate and rhythm +murmur, no gallops, or rubs. Peripheral pulses symmetric. RESPIRATORY/CHEST: tachypneic. +rales. SOB to conversation. breath sounds symmetrical GASTROINTESTINAL: Abdomen soft, non-tender, nondistended. No hepato-splenomegaly , or palpable masses. No guarding. Bowel sounds present. GENITOURINARY: Without palpable bladder distension. Juares catheter in place. MUSCULOSKELETAL: Extremities without clubbing, cyanosis, or edema. No joint tenderness or effusion noted. No calf tenderness. No mottling or clubbing. NEUROLOGICAL: Awake and alert. mild confusion, loses train of though. Motor and sensory grossly within normal limits. Follows commands. Moves all extremities. PSYCHIATRIC: appears m ildly anxious intermittently throughout conversation. no apparent hallucinations or other psychotic thought process. Diagnostic Tests Laboratory: Laboratory Results - last 72 hr 10/28/18 10/30/18 10/30/18 20:00 17:17 22:10 CBC w Diff WBC RBC Hgb Hct MCV MCH MCHC RDW Plt Count MPV Neut % (Auto) Lymph % (Auto) [place] % (Auto) Eos % (Auto) Baso % (Auto) Neut # (Auto) Lymph # (Auto) [place] # (Auto) Eos # (Auto) Baso # (Auto) WBC Differential Differential Comment Sodium Potassium 3.6 Chloride Carbon Dioxide Anion Gap BUN Creatinine Estimated GFR POC Glucose 161 H Random Glucose Calcium Phosphorus 1.8 L Magnesium Total Bilirubin AST ALT Alkaline Phosphatase Total Protein Albumin Vancomycin Trough C. pneumoniae IgG Titer <1:64 C. pneumoniae IgA Titer <1:16 C. pneumoniae IgM Titer <1:10 C. pneumoniae Ab Interp 05/10/18 05/11/18 05/11/18 23:48 06:25 08:08 CBC w Diff WBC RBC Hgb Hct MCV MCH MCHC RDW Plt Count MPV Neut % (Auto) Lymph % (Auto) [place] % (Auto) Eos % (Auto) Baso % (Auto) Neut # (Auto) Lymph # (Auto) [place] # (Auto) Eos # (Auto) Baso # (Auto) WBC Differential Differential Comment Sodium 143 Potassium 3.6 Chloride 110 H Carbon Dioxide 20.1 L Anion Gap 13 BUN 22 H Creatinine 0.95 Estimated GFR 75 L POC Glucose 121 H 133 H Random Glucose 133 H Calcium 7.9 L Phosphorus 2.9 D Magnesium Total Bilirubin 0.3 AST 44 H ALT 23 Alkaline Phosphatase 84 Total Protein 6.4 Albumin 2.0 L Vancomycin Trough C. pneumoniae IgG Titer C. pneumoniae IgA Titer C. pneumoniae IgM Titer C. pneumoniae Ab Interp 05/11/18 05/11/18 05/11/18 09:11 12:03 16:50 CBC w Diff Auto diff final WBC 16.9 H RBC 3.99 L Hgb 11.4 L Hct 33.1 L MCV 82.9 MCH 28.4 MCHC 34.3 RDW 15.2 Plt Count 185 MPV 9.0 Neut % (Auto) 94.3 H Lymph % (Auto) 3.2 L [place] % (Auto) 2.4 Eos % (Auto) 0.0 Baso % (Auto) 0.1 Neut # (Auto) 16.0 H Lymph # (Auto) 0.5 L [place] # (Auto) 0.4 Eos # (Auto) 0.0 Baso # (Auto) 0.0 WBC Differential . Differential Comment . Sodium Potassium Chloride Carbon Dioxide Anion Gap BUN Creatinine Estimated GFR POC Glucose 132 H 169 H Random Glucose Calcium Phosphorus Magnesium Total Bilirubin AST ALT Alkaline Phosphatase Total Protein Albumin Vancomycin Trough C. pneumoniae IgG Titer C. pneumoniae IgA Titer C. pneumoniae IgM Titer C. pneumoniae Ab Interp 05/11/18 05/12/18 05/12/18 19:27 00:12 04:25 CBC w Diff WBC RBC Hgb Hct MCV MCH MCHC RDW Plt Count MPV Neut % (Auto) Lymph % (Auto) [place] % (Auto) Eos % (Auto) Baso % (Auto) Neut # (Auto) Lymph # (Auto) [place] # (Auto) Eos # (Auto) Baso # (Auto) WBC Differential Differential Comment Sodium 142 Potassium 3.3 L Chloride 108 H Carbon Dioxide 25.3 Anion Gap 9 BUN 19 H Creatinine 0.78 Estimated GFR Greater than 89 POC Glucose 134 H Random Glucose 145 H Calcium 7.7 L Phosphorus Magnesium 1.6 Total Bilirubin AST ALT Alkaline Phosphatase Total Protein Albumin Vancomycin Trough 5.9 C. pneumoniae IgG Titer C. pneumoniae IgA Titer C. pneumoniae IgM Titer C. pneumoniae Ab Interp 05/12/18 05/12/18 05/12/18 05:53 12:44 17:07 CBC w Diff WBC RBC Hgb Hct MCV MCH MCHC RDW Plt Count MPV Neut % (Auto) Lymph % (Auto) [place] % (Auto) Eos % (Auto) Baso % (Auto) Neut # (Auto) Lymph # (Auto) [place] # (Auto) Eos # (Auto) Baso # (Auto) WBC Differential Differential Comment Sodium Potassium Chloride Carbon Dioxide Anion Gap BUN Creatinine Estimated GFR POC Glucose 138 H 140 H 167 H Random Glucose Calcium Phosphorus Magnesium Total Bilirubin AST ALT Alkaline Phosphatase Total Protein Albumin Vancomycin Trough C. pneumoniae IgG Titer C. pneumoniae IgA Titer C. pneumoniae IgM Titer C. pneumoniae Ab Interp 05/12/18 05/13/18 05/13/18 23:58 05:00 05:36 CBC w Diff WBC RBC Hgb Hct MCV MCH MCHC RDW Plt Count MPV Neut % (Auto) Lymph % (Auto) [place] % (Auto) Eos % (Auto) Baso % (Auto) Neut # (Auto) Lymph # (Auto) [place] # (Auto) Eos # (Auto) Baso # (Auto) WBC Differential Differential Comment Sodium 139 Potassium 3.5 Chloride 104 Carbon Dioxide 26.3 Anion Gap 9 BUN 21 H Creatinine 0.88 Estimated GFR 82 L POC Glucose 136 H 181 H Random Glucose 178 H Calcium 7.7 L Phosphorus Magnesium 1.7 Total Bilirubin AST ALT Alkaline Phosphatase Total Protein Albumin Vancomycin Trough C. pneumoniae IgG Titer C. pneumoniae IgA Titer C. pneumoniae IgM Titer C. pneumoniae Ab Interp 05/13/18 11:21 CBC w Diff WBC RBC Hgb Hct MCV MCH MCHC RDW Plt Count MPV Neut % (Auto) Lymph % (Auto) [place] % (Auto) Eos % (Auto) Baso % (Auto) Neut # (Auto) Lymph # (Auto) [place] # (Auto) Eos # (Auto) Baso # (Auto) WBC Differential Differential Comment Sodium Potassium Chloride Carbon Dioxide Anion Gap BUN Creatinine Estimated GFR POC Glucose 128 H Random Glucose Calcium Phosphorus Magnesium Total Bilirubin AST ALT Alkaline Phosphatase Total Protein Albumin Vancomycin Trough C. pneumoniae IgG Titer C. pneumoniae IgA Titer C. pneumoniae IgM Titer C. pneumoniae Ab Interp Result Diagrams: 05/11/18 09:11 05/13/18 05:00 Microbiology: Microbiology 05/08/18 16:10 Aerobic Blood Culture - Final Blood - Peripheral No growth in 5 days Anaerobic Blood Culture - Final No growth in 5 days 05/08/18 16:05 Aerobic Blood Culture - Final Blood - Peripheral No growth in 5 days Anaerobic Blood Culture - Final No growth in 5 days 05/08/18 17:45 Urine Culture - Final Catheterized Urine No growth in 48 hours Imaging: Head CT 05/08/18 00:00 CONCLUSION: 1. No acute intracranial abnormalities. . Chest X-Ray 05/08/18 16:01 CONCLUSION: Status post median sternotomy. Lungs are grossly clear except for chronic bibasilar changes. Chest CTA 05/08/18 16:02 CONCLUSION: 1. Suboptimal exam but no definite evidence for pulmonary embolus. 2. Worsening bilateral lung consolidation especially posteriorly with air bronchograms. Also worsening adenopathy and possible 2.1 cm mass or enlarged lymph node in the right hilar region. Cannot exclude underlying neoplasm. Abdomen/Bladder Ultrasound 05/09/18 00:00 CONCLUSION: 1. Mildly echogenic without hydronephrosis or mass. Videofluoroscopic Swallow 05/09/18 00:00 CONCLUSION: Please see detailed report by speech pathology. Chest X-Ray 05/09/18 06:00 CONCLUSION: Left greater than right basilar consolidation. Both sides are slightly worse in the interim. Chest X-Ray 05/10/18 06:00 CONCLUSION: Mild consolidation and small effusions at each lung base not significantly changed. Chest X-Ray 05/11/18 07:15 CONCLUSION: Bilateral areas of infiltrate and small effusions primary consideration would be congestive failure though underlying pneumonia is not excluded. Appearance of the parenchyma has mildly worsened compared to previous dated . Patient/Family Conference Present at Family Conference: wilber Zabala Family Conference Time: 45 Family Conference Location: Bedside Issues Discussed: * Palliative care role, purpose, approach * Additional medical, psychosocial, and spiritual history * Patients general health, functional status, and cognitive changes in the months leading up to the current hospitalization * Patient/family understanding of the current medical problems * Patient/family understanding of prognosis * Patients goals of care as best understood from advance directives and/or conversations and/or values * Current medical treatment options and benefits/burdens of those options * Likely scenarios comparing ongoing aggressive care with a transition to comfort measures only * code status * introduced hospice * Questions answered to the best of my ability * Palliative care contact information provided pt expressing conflicting goals, somewhat unrealistic. He vascillates bet wanting rehab and wanting to go home, "I"ll get better quicker at home." "If you think i should do it fine." more realistic, feels he is declining and is concerned that she won't be able to take care of him alone at home. They both agree to no code DNR. They agree to informational hospice consult. Assessment and Plan - Disease Oriented Problem List (1) Acute hypoxemic respiratory failure (2) SIRS (systemic inflammatory response syndrome) (3) Right bundle branch block (4) COPD (chronic obstructive pulmonary disease) (5) Paroxysmal atrial fibrillation (6) Coronary artery disease (7) Essential hypertension Pertinent Non-Medical Issues: Psychosocial: Lives at home with . Pt and his have been for 66 years. They are originally from [place] and have been in [place] 20+ years. 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 he did serve in the [employer]. Spiritual: roman catholic. pastoral care available. Legal: Pt appears to be capacitated to make medical decisions although he does have some mild confusion that may or may not improve. In the even he is unable to make medical decisions, per [place] statutes proxy decision making would fall to his . recommend shared decision making Ethical issues impacting care:none Important Contacts: [place] [phone] Prognosis: this is an 87 y/o male with hx recurrent PNA, CAD s/p CABG, TRICIA noncompliant with cpap, COPD, poss aspiration PNA who presented 05/08 with weakness, respiratory failure. He has a trajectory of decline. he remains at risk for further setbacks and decline. It is unlikely he will return to 100% of his former baseline. his respiratory status may be barrier to full performance at rehab. He may be hospice appropriate should goals be in line with comfort. Code Status: No Code DNR Plan: - decision maker - Pt appears to be capacitated to make medical decisions although he does have some mild confusion that may or may not improve. In the even he is unable to make medical decisions, per [place] statutes proxy decision making would fall to his . Recommend shared decision making. - code status - no code/DNR - goals - pt expressing conflicting goals, somewhat unrealistic. He vascillates bet wanting rehab and wanting to go home, "I"ll get better quicker at home." "If you think i should do it fine." more realistic, feels he is declining and is concerned that she won't be able to take care of him alone at home. They both agree to no code DNR. They agree to informational hospice consult. - symptoms - dyspnea/cough - multifactorial. COPD, CAD, recurrent PNA, TRICIA, poss aspiration PNA, poss legionella. has PRN alprazolam, encourage pt to request for anxiety and dyspnea. further recs per pulmonology - weakness - multifactorial. pt has lost 40lbs in the last 7 months. 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 has PRN alprazolam. consider [facility] - hospice consult pending - Palliative care will continue to follow during hospital course as condition evolves, to assist patient/decision-maker with understanding of medical conditions, weighing benefits/burdens of treatment options, for clarification of goals of treatment. Additionally will assist with any symptoms of palliative concern Appreciation Thank you for the opportunity to participate in the care of Keith Oropeza. Attestation Attestation: To help prompt me to consider important information that might be impacting today's encounter and assessment, information from prior notes written by myself or my colleagues may have been "brought forward" into today's note. My signature on this note, however, is an attestation that I personally performed the exam, history, and/or decision-making noted today, and, unless otherwise indicated, the interactions with patient, family, and staff as well as the review of records all occurred today. I also attest that the listed assessment and stated plan reflect my best clinical judgment today based on the combination of historical information, prior notes, and today's exam/ interactions. When time spent is documented, it refers only to time spent today by the signer, or if indicated, combined time spent today by collaborating physician/nurse practitioner. .
--- NOTE | 2018-05-13 15:23 | P.PN ---
Subjective Interval history: Follow-up respiratory failure. Tolerated 5 L nasal cannula overnight currently on 4 L. Confirms he does not want to be intubated and wants to be discharged to rehab when ready. Discussed with case management Physical Exam Vital signs: Vital Signs 05/12/18 15:41 05/12/18 16:00 05/12/18 17:00 Temperature 98.1 F Pulse Rate 81 84 82 Respiratory Rate 19 31 H 45 H Blood Pressure 108/57 L 92/61 L Pulse Oximetry 89 L 92 L 05/12/18 18:00 05/12/18 19:00 05/12/18 19:50 Temperature Pulse Rate 84 88 Respiratory Rate 40 H 18 Blood Pressure 105/52 L 114/61 Pulse Oximetry 86 L 92 L 93 L 05/12/18 20:00 05/12/18 21:00 05/12/18 21:20 Temperature 97.8 F Pulse Rate 110 H 76 80 Respiratory Rate 22 12 27 H Blood Pressure 114/61 Pulse Oximetry 92 L 93 L 05/12/18 22:00 05/12/18 23:00 05/13/18 00:00 Temperature 97.6 F Pulse Rate 83 77 79 Respiratory Rate 14 18 18 Blood Pressure 117/57 L 115/61 Pulse Oximetry 93 L 92 L 92 L 05/13/18 01:00 05/13/18 02:00 05/13/18 03:00 Temperature 98.3 F Pulse Rate 78 78 68 Respiratory Rate 27 H 27 H 19 Blood Pressure 109/58 L 120/47 L Pulse Oximetry 91 L 93 L 05/13/18 03:52 05/13/18 04:00 05/13/18 05:00 Temperature 98.3 F Pulse Rate 67 74 84 Respiratory Rate 22 25 H 22 Blood Pressure 117/53 L 114/62 Pulse Oximetry 98 91 L 05/13/18 06:00 05/13/18 06:01 05/13/18 07:01 Temperature 97.5 F L Pulse Rate 86 74 Respiratory Rate 37 H 28 H Blood Pressure 126/71 126/71 118/67 Pulse Oximetry 91 L 95 05/13/18 08:00 05/13/18 08:01 05/13/18 09:01 Temperature Pulse Rate 74 70 80 Respiratory Rate 25 H 28 H Blood Pressure 132/67 133/71 Pulse Oximetry 93 L 96 92 L 05/13/18 10:00 05/13/18 10:01 05/13/18 11:09 Temperature Pulse Rate 86 Respiratory Rate 35 H Blood Pressure 124/66 144/72 H Pulse Oximetry 91 L 91 L 85 L 05/13/18 12:00 05/13/18 12:01 05/13/18 13:01 Temperature 97.4 F L Pulse Rate 72 68 Respiratory Rate 18 19 Blood Pressure 119/62 124/67 Pulse Oximetry 96 95 05/13/18 14:01 Temperature Pulse Rate 80 Respiratory Rate 39 H Blood Pressure 124/65 Pulse Oximetry 93 L Intake & Output 05/12/18 05/13/18 05/13/18 18:59 06:59 18:59 Intake Total 550 / 550 320 / 320 Output Total 900 / 900 1100 / 1100 Balance -350 / -350 -780 / -780 Weight 71.6 kg Intake: IV 150 / 150 Levaquin 750 mg Premix Inj 150 150 / 150 ML @ 100 mls/hr IV.SIG Q24H [facility] Rx#:[id number] Oral 400 / 400 320 / 320 Output: Urine 900 / 900 1100 / 1100 Other: Date of Last Bowel Movement 05/12/18 05/12/18 # Bowel Movements 1 Narrative: GENERAL: 87-year-old male on nasal cannula SKIN: Warm and dry. Few scattered ecchymoses bilateral upper extremities. CARDIOVASCULAR: Regular rate and rhythm. S1, S2. No S4. Without murmur RESPIRATORY: Decreased breath sounds equal bilaterally. No wheezing. GASTROINTESTINAL: Abdomen soft, non-tender, nondistended. Normoactive bowel sounds appreciated. MUSCULOSKELETAL: Extremities without clubbing, cyanosis, or edema. NEUROLOGICAL: Awake and alert. No obvious cranial nerve deficits. Motor grossly within normal limits. Five out of 5 muscle strength in the arms and legs. - Urinary Catheter Management Indwelling Urethral Catheter Cath placed during this visit: yes, but has since been removed by the nurse Reason for continuing: Not indwelling catheter Insertion date: 05/09/18 Insertion time: 17:45 Removal date: 05/09/18 Removal time: 12:45 Straight Cath placed during this visit: no Reason for continuing: Not indwelling catheter Results - Labs CBC & Chem 7: 05/11/18 09:11 05/13/18 05:00 Laboratory Results - last 24 hr 05/12/18 05/12/18 05/13/18 17:07 23:58 05:00 Sodium 139 Potassium 3.5 Chloride 104 Carbon Dioxide 26.3 Anion Gap 9 BUN 21 H Creatinine 0.88 Estimated GFR 82 L POC Glucose 167 H 136 H Random Glucose 178 H Calcium 7.7 L Magnesium 1.7 05/13/18 05/13/18 05:36 11:21 Sodium Potassium Chloride Carbon Dioxide Anion Gap BUN Creatinine Estimated GFR POC Glucose 181 H 128 H Random Glucose Calcium Magnesium Microbiology 05/08/18 16:10 Blood - Peripheral Aerobic Blood Culture - Final No growth in 5 days 05/08/18 16:10 Blood - Peripheral Anaerobic Blood Culture - Final No growth in 5 days 05/08/18 16:05 Blood - Peripheral Aerobic Blood Culture - Final No growth in 5 days 05/08/18 16:05 Blood - Peripheral Anaerobic Blood Culture - Final No growth in 5 days - Procedures none Assessment and Plan - Plan This is an 87-year-old male patient with: Acute respiratory failure/hypoxic hypercapnic suspect secondary to legionella pneumonia History of chronic recurrent pneumonia History of COPD/tobaccoism Obstructive sleep apnea on nocturnal BiPAP -Leukocytosis noted, trending down. May be elevated secondary to steroids. -Blood cultures negative to date, continue to monitor. Sputum cultures negative. -BiPAP as needed, supplemental O2 as needed. -Chest x-ray revealed the lungs to be symmetrically aerated without evidence of mass, infiltrate or effusion other than mild consolidation both lung bases -CT pulmonary angiogram revealed no central pulmonary. Bilateral lower lobe infiltrates/consolidation. Right hilar lymphadenopathy 2.1 cm vs mass, pulmo ff -Urine pneumococcal Ag negative, urine Legionella antigen positive. Mycoplasma and Chlamydia pending. -Antibiotics deescalated to Levaquin -Resume fluticasone/umeclidinium/Vilanterol daily -Albuterol/ipratropium aerosols every 4 hours with albuterol aerosols every 2 hours as needed dyspnea -Methylprednisolone succinate 40 mg IV every 8 hours, will wean -05/10 revealed infiltrates with pulmonary edema. CXR on 05/11 was showing some edema. Clinically improving tolerating nasal cannula decrease Lasix Elevated troponin Right bundle branch block Coronary artery disease status post CABG x5 History of coronary artery stent Essential hypertension Hyperlipidemia History of paroxysmal atrial fibrillation currently in sinus tachycardia History of AAA -EKG in the ED revealed sinus tachycardia. Rate 130s. Borderline first-degree AV block. Right bundle branch block. -Will hold off on cardiology consultation as likely type II demand ischemia from tachycardia unless new acute cardiac findings -Home medication is diltiazem 120 mg daily for hypertension. Currently 15 mg 4 times daily -Resume aspirin 81 mg daily -Holding isosorbide mononitrate 60 mg daily in light of borderline blood pressures -Continue pravastatin 80 mg daily/home medication for dyslipidemia -Echocardiogram 2016 revealed EF around 50-55%. Left atrial dilatation. Moderate MR. PAP 40-50 mmHg Gastroesophageal reflux disease P.o. diet as tolerated Modified barium swallow with speech therapy Patient is on omeprazole 20 mg daily at home. Continue pantoprazole 40 mg daily Docusate sodium/senna 1 tablet twice daily for bowel regimen Acute kidney injury. Resolving - Neg urine eosinophils - Ultrasound w/o block - Continue crystalloid resuscitation - Avoid nephrotoxic medications - Monitor urine output Normocytic anemia -Monitor CBC. Follow trends -No indication for transfusion of blood products at this time. -Previously on apixaban but off due to frequent falls Hypomagnesia Hypokalemia -Improving. Replace as indicated. Follow BMP. Hypothyroidism Gout -Continue levothyroxine at 25 mcg daily. TSH 0.9 -Continue allopurinol 100 mg daily Restless leg syndrome Gait and balance disorder -Acetaminophen 650 mg by mouth every 6 hours as needed fever -Hydrocodone/acetaminophen 5/325 1 tablet every 4 hours as needed pain 1 through 5 -Morphine sulfate 2 mg IV every 2 hours as needed pain 6 through 10 -Ropinirole 0.5 mg 3 times daily for restless leg syndrome -CT brain revealed no acute intracranial findings -Physical therapy/occupational therapy evaluate and treat GI prophylaxis: Pantoprazole. DVT prophylaxis: SCD. Heparin. Discharge Planning: Rehab when stable. May transfer to [facility]
--- NOTE | 2018-05-13 19:22 | P.PN ---
Subjective Interval history: He is better . Now on O2 3 L and sats 91. wants to go to rehab. Physical Exam Vital signs: Vital Signs 05/12/18 19:50 05/12/18 20:00 05/12/18 21:00 Temperature 97.8 F Pulse Rate 110 H 76 Respiratory Rate 22 12 Blood Pressure 114/61 Pulse Oximetry 93 L 92 L 93 L 05/12/18 21:20 05/12/18 22:00 05/12/18 23:00 Temperature Pulse Rate 80 83 77 Respiratory Rate 27 H 14 18 Blood Pressure 117/57 L Pulse Oximetry 93 L 92 L 05/13/18 00:00 05/13/18 01:00 05/13/18 02:00 Temperature 97.6 F Pulse Rate 79 78 78 Respiratory Rate 18 27 H 27 H Blood Pressure 115/61 109/58 L Pulse Oximetry 92 L 91 L 93 L 05/13/18 03:00 05/13/18 03:52 05/13/18 04:00 Temperature 98.3 F 98.3 F Pulse Rate 68 67 74 Respiratory Rate 19 22 25 H Blood Pressure 120/47 L 117/53 L Pulse Oximetry 98 05/13/18 05:00 05/13/18 06:00 05/13/18 06:01 Temperature Pulse Rate 84 86 Respiratory Rate 22 37 H Blood Pressure 114/62 126/71 126/71 Pulse Oximetry 91 L 91 L 05/13/18 07:01 05/13/18 08:00 05/13/18 08:01 Temperature 97.5 F L Pulse Rate 74 74 70 Respiratory Rate 28 H 25 H Blood Pressure 118/67 132/67 Pulse Oximetry 95 93 L 96 05/13/18 09:01 05/13/18 10:00 05/13/18 10:01 Temperature Pulse Rate 80 86 Respiratory Rate 28 H 35 H Blood Pressure 133/71 124/66 Pulse Oximetry 92 L 91 L 91 L 05/13/18 11:09 05/13/18 12:00 05/13/18 12:01 Temperature 97.4 F L Pulse Rate 72 Respiratory Rate 18 Blood Pressure 144/72 H 119/62 Pulse Oximetry 85 L 96 05/13/18 13:01 05/13/18 14:01 05/13/18 15:01 Temperature Pulse Rate 68 80 84 Respiratory Rate 19 39 H 30 H Blood Pressure 124/67 124/65 100/62 Pulse Oximetry 95 93 L 89 L 05/13/18 16:01 05/13/18 17:01 Temperature Pulse Rate 88 78 Respiratory Rate 35 H 25 H Blood Pressure 111/56 L 112/63 Pulse Oximetry 90 L 95 Intake & Output 05/13/18 05/13/18 05/14/18 06:59 18:59 06:59 Intake Total 320 / 320 150 / 150 Output Total 1100 / 1100 Balance -780 / -780 150 / 150 Weight 71.6 kg Intake: IV 150 / 150 Levaquin 750 mg Premix Inj 150 150 / 150 ML @ 100 mls/hr IV.SIG Q24H [facility] Rx#:[id number] Oral 320 / 320 Output: Urine 1100 / 1100 Other: Date of Last Bowel Movement 05/12/18 Narrative: GENERAL: 87-year-old male alert and SOB. SKIN: Warm and dry. Few scattered ecchymoses bilateral upper extremities. CARDIOVASCULAR: Regular rate and rhythm. S1, S2. No S4. Without murmur RESPIRATORY: Decreased breath sounds equal bilaterally.Basal crackles +and No wheezing. GASTROINTESTINAL: Abdomen soft, non-tender, nondistended. Normoactive bowel sounds appreciated. MUSCULOSKELETAL: Extremities without clubbing, cyanosis, or edema. NEUROLOGICAL: Awake and alert. No obvious cranial nerve deficits. Motor grossly within normal limits. - Urinary Catheter Management Indwelling Urethral Catheter Cath placed during this visit: yes, but has since been removed by the nurse Reason for continuing: Not indwelling catheter Insertion date: 05/09/18 Insertion time: 17:45 Removal date: 05/09/18 Removal time: 12:45 Straight Cath placed during this visit: no Reason for continuing: Not indwelling catheter Results - Labs CBC & Chem 7: 05/11/18 09:11 05/13/18 05:00 Laboratory Results - last 24 hr 05/12/18 05/13/18 05/13/18 23:58 05:00 05:36 Sodium 139 Potassium 3.5 Chloride 104 Carbon Dioxide 26.3 Anion Gap 9 BUN 21 H Creatinine 0.88 Estimated GFR 82 L POC Glucose 136 H 181 H Random Glucose 178 H Calcium 7.7 L Magnesium 1.7 05/13/18 05/13/18 11:21 18:14 Sodium Potassium Chloride Carbon Dioxide Anion Gap BUN Creatinine Estimated GFR POC Glucose 128 H 148 H Random Glucose Calcium Magnesium Microbiology 05/08/18 16:10 Blood - Peripheral Aerobic Blood Culture - Final No growth in 5 days 05/08/18 16:10 Blood - Peripheral Anaerobic Blood Culture - Final No growth in 5 days 05/08/18 16:05 Blood - Peripheral Aerobic Blood Culture - Final No growth in 5 days 05/08/18 16:05 Blood - Peripheral Anaerobic Blood Culture - Final No growth in 5 days - Procedures none Assessment and Plan - Assessment (1) Aspiration pneumonia Code(s): J69.0 - Pneumonitis due to inhalation of food and vomit Status: Acute (2) Acute hypoxemic respiratory failure Code(s): J96.01 - Acute respiratory failure with hypoxia Status: Acute (3) SIRS (systemic inflammatory response syndrome) Code(s): R65.10 - Systemic inflammatory response syndrome (SIRS) of non- infectious origin without acute organ dysfunction Status: Acute (4) Right bundle branch block Code(s): I45.10 - Unspecified right bundle-branch block Status: Chronic (5) Sinus tachycardia Code(s): R00.0 - Tachycardia, unspecified Status: Acute (6) COPD (chronic obstructive pulmonary disease) Code(s): J44.9 - Chronic obstructive pulmonary disease, unspecified Status: Chronic (7) Paroxysmal atrial fibrillation Code(s): I48.0 - Paroxysmal atrial fibrillation Status: Suspected (8) Coronary artery disease Code(s): I25.10 - Atherosclerotic heart disease of [place] coronary artery without angina pectoris Status: Chronic (9) Essential hypertension Code(s): I10 - Essential (primary) hypertension Status: Chronic (10) Hypothyroidism Code(s): E03.9 - Hypothyroidism, unspecified Status: Chronic (11) Acute kidney injury Code(s): N17.9 - Acute kidney failure, unspecified Status: Acute (12) Normocytic anemia Code(s): D64.9 - Anemia, unspecified Status: Acute - Plan 1. Cont antibiotics and switch to PO . 2. Wean O2 to 3 L. 3. BIPAP 12/5 cm at HS. 4. Cont Duoneb nebs qid prn 5. Check stool for C Diff toxin 6. D/C Solumderol 7. PT Evaluation and rehab placement over weekend. 8. Lasix 20 mg daily. 9. patient wishes to be DNR but Full active treatment 10. Add Prednisone 20 mg BID and taper (6) COPD (chronic obstructive pulmonary disease) Qualifiers: COPD type: unspecified COPD Qualified Code(s): J44.9 - Chronic obstructive pulmonary disease, unspecified (8) Coronary artery disease Qualifiers: Coronary Disease-Associated Artery/Lesion type: unspecified vessel or lesion type [place] vs. transplanted heart: [place] heart Associated angina: without angina Qualified Code(s): I25.10 - Atherosclerotic heart disease of [place] coronary artery without angina pectoris (10) Hypothyroidism Qualifiers: Hypothyroidism type: unspecified Qualified Code(s): E03.9 - Hypothyroidism, unspecified
[2018-05-14] MEDS: Insulin NovoLOG Aspart Correctional Sugar Inj SQ SCH ×4 (00:02→19:24)
[2018-05-14] MEDS: Heparin - SQ 10,000 UNITS/ML Vial SQ SCH ×2 (05:46→18:35)
[2018-05-14] MEDS: MethylPREDNISolone Sod Succinate Inj 40 MG/ML Vial IV.PUSH SCH (06:03)
[2018-05-14 06:29] LABS: Calcium 7.8 mg/dL (8.5-10.1)
[2018-05-14 06:30] LABS: Carbon Dioxide 27.1 meq/L (21.0-32.0); Magnesium 1.9 mg/dL (1.5-2.5)
[2018-05-14] MEDS: dilTIAZem 30 MG Tablet PO SCH ×4 (09:19→21:47)
[2018-05-14] MEDS: Furosemide 20 MG Tablet PO SCH (09:20)
[2018-05-14] MEDS: Allopurinol 100 MG Tablet PO SCH (09:20)
[2018-05-14] MEDS: TRELEGY ELLIPTA INH SCH (09:20)
[2018-05-14] MEDS: predniSONE 20 MG Tablet PO SCH (09:20)
[2018-05-14] MEDS: levoFLOXacin 750 MG Tablet PO SCH (10:14)
--- NOTE | 2018-05-14 13:33 | P.PN ---
Subjective Interval history: Follow-ups respiratory failure. Patient doing well on 2 L nasal cannula. Seen with . Agree with rehab. Physical Exam Vital signs: Vital Signs 05/13/18 14:01 05/13/18 15:01 05/13/18 16:01 Temperature Pulse Rate 80 84 88 Respiratory Rate 39 H 30 H 35 H Blood Pressure 124/65 100/62 111/56 L Pulse Oximetry 93 L 89 L 90 L 05/13/18 17:01 05/13/18 18:00 05/13/18 19:00 Temperature 97.5 F L Pulse Rate 78 82 84 Respiratory Rate 25 H 27 H 30 H Blood Pressure 112/63 116/67 137/80 Pulse Oximetry 95 93 L 90 L 05/13/18 20:00 05/13/18 21:00 05/13/18 21:55 Temperature Pulse Rate 86 82 Respiratory Rate 28 H 38 H Blood Pressure 114/71 128/63 Pulse Oximetry 90 L 90 L 92 L 05/13/18 22:00 05/13/18 23:00 05/14/18 00:00 Temperature 96.5 F L Pulse Rate 82 74 Respiratory Rate 32 H 36 H 23 Blood Pressure 116/58 L 119/61 119/64 Pulse Oximetry 90 L 94 L 95 05/14/18 01:00 05/14/18 02:00 05/14/18 03:00 Temperature Pulse Rate 68 66 70 Respiratory Rate 30 H 19 24 Blood Pressure 115/71 118/62 124/65 Pulse Oximetry 97 97 94 L 05/14/18 04:01 05/14/18 05:00 05/14/18 08:00 Temperature 97.7 F 97.3 F L Pulse Rate 64 68 66 Respiratory Rate 19 14 19 Blood Pressure 119/58 L 124/64 136/59 L Pulse Oximetry 97 98 66 L 05/14/18 08:35 05/14/18 12:00 Temperature 96.4 F L Pulse Rate 72 Respiratory Rate 20 Blood Pressure 120/62 Pulse Oximetry 97 72 L Intake & Output 05/13/18 05/14/18 05/14/18 18:59 06:59 18:59 Intake Total 630 / 630 160 / 160 Output Total 950 / 950 750 / 750 180 / 180 Balance -320 / -320 -590 / -590 -180 / -180 Weight 70.1 kg Intake: IV 150 / 150 Levaquin 750 mg Premix Inj 150 150 / 150 ML @ 100 mls/hr IV.SIG Q24H COUNT INCLUDES [facility] Rx#:[id number] Oral 480 / 480 160 / 160 Output: Urine 950 / 950 750 / 750 180 / 180 Other: Date of Last Bowel Movement 05/12/18 05/12/18 Narrative: GENERAL: 87-year-old male in no distress on nasal cannula SKIN: Warm and dry. Few scattered ecchymoses bilateral upper extremities. CARDIOVASCULAR: Regular rate and rhythm. S1, S2. No S4. Without murmur RESPIRATORY: Decreased breath sounds equal bilaterally No wheezing. GASTROINTESTINAL: Abdomen soft, non-tender, nondistended. Normoactive bowel sounds appreciated. MUSCULOSKELETAL: Extremities without clubbing, cyanosis, or edema. NEUROLOGICAL: Awake and alert. No obvious cranial nerve deficits. Motor grossly within normal limits. - Urinary Catheter Management Indwelling Urethral Catheter Cath placed during this visit: yes, but has since been removed by the nurse Reason for continuing: Not indwelling catheter Insertion date: 05/09/18 Insertion time: 17:45 Removal date: 05/09/18 Removal time: 12:45 Straight Cath placed during this visit: no Reason for continuing: Not indwelling catheter Results - Labs CBC & Chem 7: 05/11/18 09:11 05/14/18 05:45 Laboratory Results - last 24 hr 05/13/18 05/13/18 05/14/18 18:14 23:50 05:44 Sodium Potassium Chloride Carbon Dioxide Anion Gap BUN Creatinine Estimated GFR POC Glucose 148 H 141 H 148 H Random Glucose Calcium Magnesium 05/14/18 05/14/18 05/14/18 05:45 05:45 08:12 Sodium 140 Potassium 4.0 Chloride 103 Carbon Dioxide 27.1 Anion Gap 10 BUN 27 H Creatinine Cancelled 0.88 Estimated GFR Cancelled 82 L POC Glucose 144 H Random Glucose 156 H Calcium 7.8 L Magnesium 1.9 05/14/18 12:06 Sodium Potassium Chloride Carbon Dioxide Anion Gap BUN Creatinine Estimated GFR POC Glucose 139 H Random Glucose Calcium Magnesium Microbiology 05/08/18 16:10 Blood - Peripheral Aerobic Blood Culture - Final No growth in 5 days 05/08/18 16:10 Blood - Peripheral Anaerobic Blood Culture - Final No growth in 5 days 05/08/18 16:05 Blood - Peripheral Aerobic Blood Culture - Final No growth in 5 days 05/08/18 16:05 Blood - Peripheral Anaerobic Blood Culture - Final No growth in 5 days - Procedures none Assessment and Plan - Plan This is an 87-year-old male patient with: Acute respiratory failure/hypoxic hypercapnic suspect secondary to legionella pneumonia History of chronic recurrent pneumonia History of COPD/tobaccoism Obstructive sleep apnea on nocturnal BiPAP -Leukocytosis noted, trending down. May be elevated secondary to steroids. -Blood cultures negative to date, continue to monitor. Sputum cultures negative. -BiPAP as needed, supplemental O2 as needed. -Chest x-ray revealed the lungs to be symmetrically aerated without evidence of mass, infiltrate or effusion other than mild consolidation both lung bases -CT pulmonary angiogram revealed no central pulmonary. Bilateral lower lobe infiltrates/consolidation. Right hilar lymphadenopathy 2.1 cm vs mass, pulmo ff -Urine pneumococcal Ag negative, urine Legionella antigen positive. Mycoplasma and Chlamydia pending. -Antibiotics deescalated to Levaquin -Resume fluticasone/umeclidinium/Vilanterol daily -Albuterol/ipratropium aerosols every 4 hours with albuterol aerosols every 2 hours as needed dyspnea -Switch to p.o. prednisone -05/10 revealed infiltrates with pulmonary edema. CXR on 05/11 was showing some edema. Clinically improving tolerating nasal cannula decrease Lasix Elevated troponin Right bundle branch block Coronary artery disease status post CABG x5 History of coronary artery stent Essential hypertension Hyperlipidemia History of paroxysmal atrial fibrillation currently in sinus tachycardia History of AAA -EKG in the ED revealed sinus tachycardia. Rate 130s. Borderline first-degree AV block. Right bundle branch block. -Will hold off on cardiology consultation as likely type II demand ischemia from tachycardia unless new acute cardiac findings -Home medication is diltiazem 120 mg daily for hypertension. Currently 15 mg 4 times daily -Resume aspirin 81 mg daily -Holding isosorbide mononitrate 60 mg daily in light of borderline blood pressures -Continue pravastatin 80 mg daily/home medication for dyslipidemia -Echocardiogram 2017 revealed EF around 50-55%. Left atrial dilatation. Moderate MR. PAP 40-50 mmHg Gastroesophageal reflux disease P.o. pured diet with thickened fluids Modified barium swallow with speech therapy Patient is on omeprazole 20 mg daily at home. Continue pantoprazole 40 mg daily Docusate sodium/senna 1 tablet twice daily for bowel regimen Acute kidney injury. Resolving - Neg urine eosinophils - Ultrasound w/o block - Continue crystalloid resuscitation - Avoid nephrotoxic medications - Monitor urine output Normocytic anemia -Monitor CBC. Follow trends -No indication for transfusion of blood products at this time. -Previously on apixaban but off due to frequent falls Hypomagnesia Hypokalemia -Improving. Replace as indicated. Follow BMP. Hypothyroidism Gout -Continue levothyroxine at 25 mcg daily. TSH 0.9 -Continue allopurinol 100 mg daily Restless leg syndrome Gait and balance disorder -Acetaminophen 650 mg by mouth every 6 hours as needed fever -Hydrocodone/acetaminophen 5/325 1 tablet every 4 hours as needed pain 1 through 5 -Morphine sulfate 2 mg IV every 2 hours as needed pain 6 through 10 -Ropinirole 0.5 mg 3 times daily for restless leg syndrome -CT brain revealed no acute intracranial findings -Physical therapy/occupational therapy evaluate and treat GI prophylaxis: Pantoprazole. DVT prophylaxis: SCD. Heparin. Discharge Planning: Stable for discharge
--- NOTE | 2018-05-14 13:48 | P.DS ---
Date of admission: 05/08/18 16:54 Primary care physician: Jem Kaufman MD Anticipated date of discharge: 05/16/18 Brief History from admission: This is an 87-year-old male. He is full code. Date of admission . Past medical history includes chronic recurrent pneumonia, atrial fibrillation currently in sinus tachycardia with a right bundle branch block, obstructive sleep apnea requiring CPAP/BiPAP, coronary artery disease status post CABG x5, essential hypertension, hyperlipidemia, hypothyroidism, gastroesophageal disease, restless leg syndrome, history of chronic aortic aneurysm, arthritis and gout. Patient has had multiple admissions for recurrent pneumonia. He has been seen by Dr. Magaña as an outpatient. He presents to [facility] with a 2-3-day history of recurrent falls , weakness and shortness of breath. On arrival, patient saturations were 86%. Chest x-ray revealed bilateral lower lobe chronic infiltrates left greater than right. CT pulmonary angiogram was ordered by the ED physician. He was noted to be in sinus tachycardia right bundle branch block which is old, leukocytosis 23,000, creatinine 1.4 which is new. Baseline appears to be around 1. Lactic acid 3.1. Patient received 1 L normal saline and cefepime and azithromycin in the ED. He is placed on BiPAP which he is on at night. The family states he is on settings of 05/18 at 35% Patient is remains tachypneic but he states that he does not feel like he is tiring out at the present time. Repeat blood gas revealed he is blowing off CO2 with PCO2 of 22. PH is 7.46. PO2 of 91 mmHg. Bicarbonate was 16. Base index was -7. DS: Medications - Discharge Medications Prescriptions: levofloxacin 750 mg PO DAILY #4 tab prednisone 20 mg PO DAILY #5 tab DS: Summary Hospital Course: This is an 87-year-old male patient with: Acute respiratory failure/hypoxic hypercapnic suspect secondary to legionella pneumonia. Improved tolerating nasal cannula History of chronic recurrent pneumonia History of COPD/tobaccoism Obstructive sleep apnea on nocturnal BiPAP. Stable only on nasal cannula for the past several nights -Leukocytosis noted, trending down. May be elevated secondary to steroids. -Blood cultures negative to date, continue to monitor. Sputum cultures negative. -BiPAP as needed, supplemental O2 as needed. -Chest x-ray revealed the lungs to be symmetrically aerated without evidence of mass, infiltrate or effusion other than mild consolidation both lung bases -CT pulmonary angiogram revealed no central pulmonary. Bilateral lower lobe infiltrates/consolidation. Right hilar lymphadenopathy 2.1 cm vs mass, pulmo ff -Urine pneumococcal Ag negative, urine Legionella antigen positive. Mycoplasma pending. -Antibiotics deescalated to Levaquin thru 05/19 -Resume fluticasone/umeclidinium/Vilanterol daily -Albuterol/ipratropium aerosols every 4 hours with albuterol aerosols every 2 hours as needed dyspnea -Wean prednisone -05/10 revealed infiltrates with pulmonary edema. CXR on 05/11 was showing some edema. Clinically improving tolerating nasal cannula decrease Lasix Elevated troponin Right bundle branch block Coronary artery disease status post CABG x5 History of coronary artery stent Essential hypertension Hyperlipidemia History of paroxysmal atrial fibrillation currently in sinus tachycardia History of AAA -EKG in the ED revealed sinus tachycardia. Rate 130s. Borderline first-degree AV block. Right bundle branch block. -Will hold off on cardiology consultation as likely type II demand ischemia from tachycardia unless new acute cardiac findings -Home medication is diltiazem 120 mg daily for hypertension. Currently 15 mg 4 times daily -Resume aspirin 81 mg daily -Holding isosorbide mononitrate 60 mg daily in light of borderline blood pressures -Continue pravastatin 80 mg daily/home medication for dyslipidemia -Echocardiogram 2016 revealed EF around 50-55%. Left atrial dilatation. Moderate MR. PAP 40-50 mmHg Gastroesophageal reflux disease P.o. pured diet with thickened fluids Modified barium swallow with speech therapy Patient is on omeprazole 20 mg daily at home. Continue pantoprazole 40 mg daily Docusate sodium/senna 1 tablet twice daily for bowel regimen Acute kidney injury. Resolving - Neg urine eosinophils - Ultrasound w/o block - Continue crystalloid resuscitation - Avoid nephrotoxic medications - Monitor urine output Normocytic anemia -Monitor CBC. Follow trends -No indication for transfusion of blood products at this time. -Previously on apixaban but off due to frequent falls Hypomagnesia Hypokalemia -Improving. Replace as indicated. Follow BMP. Hypothyroidism Gout -Continue levothyroxine at 25 mcg daily. TSH 0.9 -Continue allopurinol 100 mg daily Restless leg syndrome Gait and balance disorder -Acetaminophen 650 mg by mouth every 6 hours as needed fever -Hydrocodone/acetaminophen 5/325 1 tablet every 4 hours as needed pain 1 through 5 -Morphine sulfate 2 mg IV every 2 hours as needed pain 6 through 10 -Ropinirole 0.5 mg 3 times daily for restless leg syndrome -CT brain revealed no acute intracranial findings -Physical therapy/occupational therapy evaluate and treat GI prophylaxis: Pantoprazole. DVT prophylaxis: SCD. Heparin. - Time Spent with Patient Total time spent providing and/or coordinating discharge services: Greater than 30 minutes Exam Vital signs: Vital Signs 05/13/18 14:01 05/13/18 15:01 05/13/18 16:01 Temperature Pulse Rate 80 84 88 Respiratory Rate 39 H 30 H 35 H Blood Pressure 124/65 100/62 111/56 L Pulse Oximetry 93 L 89 L 90 L 05/13/18 17:01 05/13/18 18:00 05/13/18 19:00 Temperature 97.5 F L Pulse Rate 78 82 84 Respiratory Rate 25 H 27 H 30 H Blood Pressure 112/63 116/67 137/80 Pulse Oximetry 95 93 L 90 L 05/13/18 20:00 05/13/18 21:00 05/13/18 21:55 Temperature Pulse Rate 86 82 Respiratory Rate 28 H 38 H Blood Pressure 114/71 128/63 Pulse Oximetry 90 L 90 L 92 L 05/13/18 22:00 05/13/18 23:00 05/14/18 00:00 Temperature 96.5 F L Pulse Rate 82 74 Respiratory Rate 32 H 36 H 23 Blood Pressure 116/58 L 119/61 119/64 Pulse Oximetry 90 L 94 L 95 05/14/18 01:00 05/14/18 02:00 05/14/18 03:00 Temperature Pulse Rate 68 66 70 Respiratory Rate 30 H 19 24 Blood Pressure 115/71 118/62 124/65 Pulse Oximetry 97 97 94 L 05/14/18 04:01 05/14/18 05:00 05/14/18 08:00 Temperature 97.7 F 97.3 F L Pulse Rate 64 68 66 Respiratory Rate 19 14 19 Blood Pressure 119/58 L 124/64 136/59 L Pulse Oximetry 97 98 66 L 05/14/18 08:35 05/14/18 12:00 Temperature 96.4 F L Pulse Rate 72 Respiratory Rate 20 Blood Pressure 120/62 Pulse Oximetry 97 72 L Intake & Output 05/13/18 05/14/18 05/14/18 18:59 06:59 18:59 Intake Total 630 / 630 160 / 160 Output Total 950 / 950 750 / 750 180 / 180 Balance -320 / -320 -590 / -590 -180 / -180 Weight 70.1 kg Intake: IV 150 / 150 Levaquin 750 mg Premix Inj 150 150 / 150 ML @ 100 mls/hr IV.SIG Q24H EMILIA Rx#:[id number] Oral 480 / 480 160 / 160 Output: Urine 950 / 950 750 / 750 180 / 180 Other: Date of Last Bowel Movement 05/12/18 05/12/18 Narrative: GENERAL: 87-year-old male in no distress on nasal cannula SKIN: Warm and dry. Few scattered ecchymoses bilateral upper extremities. CARDIOVASCULAR: Regular rate and rhythm. S1, S2. No S4. Without murmur RESPIRATORY: Decreased breath sounds equal bilaterally No wheezing. GASTROINTESTINAL: Abdomen soft, non-tender, nondistended. Normoactive bowel sounds appreciated. MUSCULOSKELETAL: Extremities without clubbing, cyanosis, or edema. NEUROLOGICAL: Awake and alert. No obvious cranial nerve deficits. Motor grossly within normal limits. Results Procedures completed during hospitalization: none Labs on day of discharge: Labs from last 24 hours 05/14/18 05/14/18 05/14/18 12:06 08:12 05:45 Sodium 140 Potassium 4.0 Chloride 103 Carbon Dioxide 27.1 Anion Gap 10 BUN 27 H Creatinine 0.88 Estimated GFR 82 L POC Glucose 139 H 144 H Random Glucose 156 H Calcium 7.8 L Magnesium 1.9 05/14/18 05/14/18 05/13/18 05:45 05:44 23:50 Sodium Potassium Chloride Carbon Dioxide Anion Gap BUN Creatinine Cancelled Estimated GFR Cancelled POC Glucose 148 H 141 H Random Glucose Calcium Magnesium 05/13/18 18:14 Sodium Potassium Chloride Carbon Dioxide Anion Gap BUN Creatinine Estimated GFR POC Glucose 148 H Random Glucose Calcium Magnesium - Impressions ITS Impressions Head CT 05/08/18 00:00 CONCLUSION: 1. No acute intracranial abnormalities. . Chest CTA 05/08/18 16:02 CONCLUSION: 1. Suboptimal exam but no definite evidence for pulmonary embolus. 2. Worsening bilateral lung consolidation especially posteriorly with air bronchograms. Also worsening adenopathy and possible 2.1 cm mass or enlarged lymph node in the right hilar region. Cannot exclude underlying neoplasm. Abdomen/Bladder Ultrasound 05/09/18 00:00 CONCLUSION: 1. Mildly echogenic without hydronephrosis or mass. Videofluoroscopic Swallow 05/09/18 00:00 CONCLUSION: Please see detailed report by speech pathology. Chest X-Ray 05/11/18 07:15 CONCLUSION: Bilateral areas of infiltrate and small effusions primary consideration would be congestive failure though underlying pneumonia is not excluded. Appearance of the parenchyma has mildly worsened compared to previous dated . Discharge Plan - Discharge Disposition Patient Disposition: Discharge to SNF - Discharge Condition Condition: Fair - Discharge Order Discharge Orders: Discharge Order (Routine); Ordered 05/14/18 Ordered By: Gabriel Denise - Physicians Team Primary Care Provider: Jem Kaufman Attending Provider: Gabriel Denise Other Providers: Tulio Magaña MD ; Celso Stack MD ; [facility], [facility] ; [facility],Agency
[2018-05-14] MEDS ORDERED: Pharmacy Ordered Lab Info OTHER ONE (17:45)
[2018-05-15] MEDS: Insulin NovoLOG Aspart Correctional Sugar Inj SQ SCH ×4 (01:19→17:42)
[2018-05-15] MEDS: Heparin - SQ 10,000 UNITS/ML Vial SQ SCH ×2 (06:21→17:38)
--- NOTE | 2018-05-15 08:34 | P.PN ---
Subjective Interval history: Follow-up respiratory failure. States he is doing okay stable on 3 L nasal cannula. Awaiting rehab placement. Discussed with who stated he cannot go home because he is not walking Physical Exam Vital signs: Vital Signs 05/14/18 12:00 05/14/18 16:00 05/14/18 18:50 Temperature 96.4 F L 97.3 F L 97.4 F L Pulse Rate 72 69 20 L Respiratory Rate 20 24 20 Blood Pressure 120/62 120/72 129/63 Pulse Oximetry 72 L 69 L 96 05/14/18 20:00 05/14/18 20:38 05/14/18 23:53 Temperature 96.3 F L Pulse Rate 70 69 Respiratory Rate 18 Blood Pressure 131/63 Pulse Oximetry 98 97 05/15/18 00:00 05/15/18 04:00 Temperature 96.1 F L Pulse Rate 66 56 L Respiratory Rate 18 Blood Pressure 117/61 Pulse Oximetry 95 Intake & Output 05/14/18 05/15/18 05/15/18 19:59 06:59 18:59 Intake Total Output Total Balance Weight Intake: Oral Output: Urine Other: Date of Last Bowel Movement # Bowel Movements Narrative: GENERAL: 87-year-old male in no distress on nasal cannula SKIN: Warm and dry. Few scattered ecchymoses bilateral upper extremities. CARDIOVASCULAR: Regular rate and rhythm. S1, S2. No S4. Without murmur RESPIRATORY: Decreased breath sounds equal bilaterally No wheezing. GASTROINTESTINAL: Abdomen soft, non-tender, nondistended. Normoactive bowel sounds appreciated. MUSCULOSKELETAL: Extremities without clubbing, cyanosis, or edema. NEUROLOGICAL: Awake and alert. Motor grossly within normal limits. - Urinary Catheter Management Indwelling Urethral Catheter Cath placed during this visit: yes, but has since been removed by the nurse Reason for continuing: Not indwelling catheter Insertion date: 05/09/18 Insertion time: 17:45 Removal date: 05/09/18 Removal time: 12:45 Straight Cath placed during this visit: no Reason for continuing: Not indwelling catheter Results - Labs CBC & Chem 7: 05/11/18 09:11 05/15/18 08:35 Laboratory Results - last 24 hr 05/14/18 05/14/18 05/15/18 12:06 16:21 01:17 EST POC Glucose 139 H 115 H 141 H 05/15/18 06:19 POC Glucose 115 H - Procedures none Assessment and Plan - Plan This is an 87-year-old male patient with: Acute respiratory failure/hypoxic hypercapnic suspect secondary to legionella pneumonia. Improved tolerating nasal cannula History of chronic recurrent pneumonia History of COPD/tobaccoism Obstructive sleep apnea on nocturnal BiPAP. Stable only on nasal cannula for the past several nights -Leukocytosis noted, trending down. May be elevated secondary to steroids. -Blood cultures negative to date, continue to monitor. Sputum cultures negative. -BiPAP as needed, supplemental O2 as needed. -Chest x-ray revealed the lungs to be symmetrically aerated without evidence of mass, infiltrate or effusion other than mild consolidation both lung bases -CT pulmonary angiogram revealed no central pulmonary. Bilateral lower lobe infiltrates/consolidation. Right hilar lymphadenopathy 2.1 cm vs mass, pulmo ff -Urine pneumococcal Ag negative, urine Legionella antigen positive. Mycoplasma pending. -Antibiotics deescalated to Levaquin -Resume fluticasone/umeclidinium/Vilanterol daily -Albuterol/ipratropium aerosols every 4 hours with albuterol aerosols every 2 hours as needed dyspnea -Switch to p.o. prednisone -05/10 revealed infiltrates with pulmonary edema. CXR on 05/11 was showing some edema. Clinically improving tolerating nasal cannula decrease Lasix Elevated troponin Right bundle branch block Coronary artery disease status post CABG x5 History of coronary artery stent Essential hypertension Hyperlipidemia History of paroxysmal atrial fibrillation currently in sinus tachycardia History of AAA -EKG in the ED revealed sinus tachycardia. Rate 130s. Borderline first-degree AV block. Right bundle branch block. -Will hold off on cardiology consultation as likely type II demand ischemia from tachycardia unless new acute cardiac findings -Home medication is diltiazem 120 mg daily for hypertension. Currently 15 mg 4 times daily -Resume aspirin 81 mg daily -Holding isosorbide mononitrate 60 mg daily in light of borderline blood pressures -Continue pravastatin 80 mg daily/home medication for dyslipidemia -Echocardiogram 2016 revealed EF around 50-55%. Left atrial dilatation. Moderate MR. PAP 40-50 mmHg Gastroesophageal reflux disease P.o. pured diet with thickened fluids Modified barium swallow with speech therapy Patient is on omeprazole 20 mg daily at home. Continue pantoprazole 40 mg daily Docusate sodium/senna 1 tablet twice daily for bowel regimen Acute kidney injury. Resolving - Neg urine eosinophils - Ultrasound w/o block - Continue crystalloid resuscitation - Avoid nephrotoxic medications - Monitor urine output Normocytic anemia -Monitor CBC. Follow trends -No indication for transfusion of blood products at this time. -Previously on apixaban but off due to frequent falls Hypomagnesia Hypokalemia -Improving. Replace as indicated. Follow BMP. Hypothyroidism Gout -Continue levothyroxine at 25 mcg daily. TSH 0.9 -Continue allopurinol 100 mg daily Restless leg syndrome Gait and balance disorder -Acetaminophen 650 mg by mouth every 6 hours as needed fever -Hydrocodone/acetaminophen 5/325 1 tablet every 4 hours as needed pain 1 through 5 -Morphine sulfate 2 mg IV every 2 hours as needed pain 6 through 10 -Ropinirole 0.5 mg 3 times daily for restless leg syndrome -CT brain revealed no acute intracranial findings -Physical therapy/occupational therapy evaluate and treat GI prophylaxis: Pantoprazole. DVT prophylaxis: SCD. Heparin. Discharge Planning: Stable for discharge
[2018-05-15] MEDS: Furosemide 20 MG Tablet PO SCH (08:45)
[2018-05-15] MEDS: predniSONE 20 MG Tablet PO SCH (08:45)
[2018-05-15] MEDS: Allopurinol 100 MG Tablet PO SCH (08:45)
[2018-05-15] MEDS: levoFLOXacin 750 MG Tablet PO SCH (08:49)
[2018-05-15] MEDS: dilTIAZem 30 MG Tablet PO SCH ×4 (08:52→20:49)
[2018-05-15 10:06] LABS: Anion Gap 10 meq/L (5-15); Blood Urea Nitrogen 27 mg/dL (7-18); Carbon Dioxide 26.8 meq/L (21.0-32.0); Chloride 102 meq/L (98-107); Potassium 3.9 meq/L (3.5-5.1); Sodium 139 meq/L (136-145)
[2018-05-15 10:07] LABS: Calcium 7.9 mg/dL (8.5-10.1); Glomerular Filtration Rate Greater Than 89 mL/min (>89); Glucose,Random 115 mg/dL (74-106); Magnesium 2.2 mg/dL (1.5-2.5)
[2018-05-15] MEDS: TRELEGY ELLIPTA INH SCH (13:11)
[2018-05-16] MEDS: Insulin NovoLOG Aspart Correctional Sugar Inj SQ SCH ×4 (03:11→18:00)
[2018-05-16] MEDS: Heparin - SQ 10,000 UNITS/ML Vial SQ SCH ×2 (06:12→17:31)
[2018-05-16] MEDS: TRELEGY ELLIPTA INH SCH (09:11)
[2018-05-16] MEDS: Allopurinol 100 MG Tablet PO SCH (09:12)
[2018-05-16] MEDS: dilTIAZem 30 MG Tablet PO SCH ×4 (09:12→21:36)
[2018-05-16] MEDS: levoFLOXacin 750 MG Tablet PO SCH (09:12)
[2018-05-16] MEDS: Furosemide 20 MG Tablet PO SCH (09:12)
[2018-05-16] MEDS: predniSONE 20 MG Tablet PO SCH ×2 (09:12→14:33)
--- NOTE | 2018-05-16 10:37 | P.PN ---
Subjective Interval history: Follow-up respiratory failure. States he is doing okay on 3 L nasal cannula denies shortness of breath. Discussed with physical therapy Physical Exam Vital signs: Vital Signs 05/15/18 12:00 05/15/18 16:00 05/15/18 17:49 Temperature 97.3 F L 97.5 F L Pulse Rate 67 67 65 Respiratory Rate 20 20 Blood Pressure 121/64 144/65 H Pulse Oximetry 95 97 05/15/18 20:00 05/15/18 21:48 05/16/18 00:00 Temperature 96.1 F L 98.3 F Pulse Rate 64 65 Respiratory Rate 18 18 Blood Pressure 115/56 L 138/65 Pulse Oximetry 96 98 94 L 05/16/18 04:00 05/16/18 07:36 05/16/18 08:00 Temperature 97.7 F 97.6 F Pulse Rate 59 L 71 Respiratory Rate 18 22 Blood Pressure 145/67 H 137/70 Pulse Oximetry 93 L 92 L 91 L Intake & Output 05/15/18 05/16/18 05/16/18 18:59 06:59 18:59 Intake Total 180 / 180 0 / 0 Output Total 1100 / 1100 400 / 400 Balance -920 / -920 -400 / -400 Weight 70.4 kg Intake: Oral 180 / 180 0 / 0 Output: Urine 1100 / 1100 400 / 400 Other: # Bowel Movements 0 Narrative: GENERAL: 87-year-old male in no distress on nasal cannula SKIN: Warm and dry. Few scattered ecchymoses bilateral upper extremities. CARDIOVASCULAR: Regular rate and rhythm. S1, S2. No S4. RESPIRATORY: Decreased breath sounds equal bilaterally No wheezing. GASTROINTESTINAL: Abdomen soft, non-tender, nondistended. Normoactive bowel sounds appreciated. MUSCULOSKELETAL: Extremities without clubbing, cyanosis, or edema. NEUROLOGICAL: Awake and alert. No obvious cranial nerve deficits. Motor grossly within normal limits. - Urinary Catheter Management Indwelling Urethral Catheter Cath placed during this visit: yes, but has since been removed by the nurse Reason for continuing: Not indwelling catheter Insertion date: 05/09/18 Insertion time: 17:45 Removal date: 05/09/18 Removal time: 12:45 Straight Cath placed during this visit: no Reason for continuing: Not indwelling catheter Results - Labs CBC & Chem 7: 05/11/18 09:11 05/15/18 08:35 Laboratory Results - last 24 hr 05/15/18 05/15/18 05/16/18 11:46 16:31 02:56 POC Glucose 105 112 H 126 H 05/16/18 05/16/18 06:11 07:51 POC Glucose 98 84 - Imaging ITS Impressions Head CT 05/08/18 00:00 CONCLUSION: 1. No acute intracranial abnormalities. . Chest CTA 05/08/18 16:02 CONCLUSION: 1. Suboptimal exam but no definite evidence for pulmonary embolus. 2. Worsening bilateral lung consolidation especially posteriorly with air bronchograms. Also worsening adenopathy and possible 2.1 cm mass or enlarged lymph node in the right hilar region. Cannot exclude underlying neoplasm. Abdomen/Bladder Ultrasound 05/09/18 00:00 CONCLUSION: 1. Mildly echogenic without hydronephrosis or mass. Videofluoroscopic Swallow 05/09/18 00:00 CONCLUSION: Please see detailed report by speech pathology. Chest X-Ray 05/11/18 07:15 CONCLUSION: Bilateral areas of infiltrate and small effusions primary consideration would be congestive failure though underlying pneumonia is not excluded. Appearance of the parenchyma has mildly worsened compared to previous dated . - Procedures none Assessment and Plan - Plan This is an 87-year-old male patient with: Acute respiratory failure/hypoxic hypercapnic suspect secondary to legionella pneumonia. Improved tolerating nasal cannula History of chronic recurrent pneumonia History of COPD/tobaccoism Obstructive sleep apnea on nocturnal BiPAP. Stable only on nasal cannula for the past several nights -Leukocytosis noted, trending down. May be elevated secondary to steroids. -Blood cultures negative to date, continue to monitor. Sputum cultures negative. -BiPAP as needed, supplemental O2 as needed. -Chest x-ray revealed the lungs to be symmetrically aerated without evidence of mass, infiltrate or effusion other than mild consolidation both lung bases -CT pulmonary angiogram revealed no central pulmonary. Bilateral lower lobe infiltrates/consolidation. Right hilar lymphadenopathy 2.1 cm vs mass, pulmo ff -Urine pneumococcal Ag negative, urine Legionella antigen positive. Mycoplasma pending. -Antibiotics deescalated to Levaquin thru 05/19 -Resume fluticasone/umeclidinium/Vilanterol daily -Albuterol/ipratropium aerosols every 4 hours with albuterol aerosols every 2 hours as needed dyspnea -Wean prednisone -05/10 revealed infiltrates with pulmonary edema. CXR on 05/11 was showing some edema. Clinically improving tolerating nasal cannula decrease Lasix Elevated troponin Right bundle branch block Coronary artery disease status post CABG x5 History of coronary artery stent Essential hypertension Hyperlipidemia History of paroxysmal atrial fibrillation currently in sinus tachycardia History of AAA -EKG in the ED revealed sinus tachycardia. Rate 130s. Borderline first-degree AV block. Right bundle branch block. -Will hold off on cardiology consultation as likely type II demand ischemia from tachycardia unless new acute cardiac findings -Home medication is diltiazem 120 mg daily for hypertension. Currently 15 mg 4 times daily -Resume aspirin 81 mg daily -Holding isosorbide mononitrate 60 mg daily in light of borderline blood pressures -Continue pravastatin 80 mg daily/home medication for dyslipidemia -Echocardiogram 2016 revealed EF around 50-55%. Left atrial dilatation. Moderate MR. PAP 40-50 mmHg Gastroesophageal reflux disease P.o. pured diet with thickened fluids Modified barium swallow with speech therapy Patient is on omeprazole 20 mg daily at home. Continue pantoprazole 40 mg daily Docusate sodium/senna 1 tablet twice daily for bowel regimen Acute kidney injury. Resolving - Neg urine eosinophils - Ultrasound w/o block - Continue crystalloid resuscitation - Avoid nephrotoxic medications - Monitor urine output Normocytic anemia -Monitor CBC. Follow trends -No indication for transfusion of blood products at this time. -Previously on apixaban but off due to frequent falls Hypomagnesia Hypokalemia -Improving. Replace as indicated. Follow BMP. Hypothyroidism Gout -Continue levothyroxine at 25 mcg daily. TSH 0.9 -Continue allopurinol 100 mg daily Restless leg syndrome Gait and balance disorder -Acetaminophen 650 mg by mouth every 6 hours as needed fever -Hydrocodone/acetaminophen 5/325 1 tablet every 4 hours as needed pain 1 through 5 -Morphine sulfate 2 mg IV every 2 hours as needed pain 6 through 10 -Ropinirole 0.5 mg 3 times daily for restless leg syndrome -CT brain revealed no acute intracranial findings -Physical therapy/occupational therapy evaluate and treat GI prophylaxis: Pantoprazole. DVT prophylaxis: SCD. Heparin. Discharge Planning: Stable for discharge
--- NOTE | 2018-05-16 18:22 | P.PN ---
Subjective Interval history: he is going to Rehab in am.On O2 3L. C/O cough and wheezing. No fever. On PO meds now. Physical Exam Vital signs: Vital Signs 05/15/18 20:00 05/15/18 21:48 05/16/18 00:00 Temperature 96.1 F L 98.3 F Pulse Rate 64 65 Respiratory Rate 18 18 Blood Pressure 115/56 L 138/65 Pulse Oximetry 96 98 94 L 05/16/18 04:00 05/16/18 07:36 05/16/18 08:00 Temperature 97.7 F 97.6 F Pulse Rate 59 L 71 Respiratory Rate 18 22 Blood Pressure 145/67 H 137/70 Pulse Oximetry 93 L 92 L 91 L 05/16/18 12:00 05/16/18 16:00 Temperature 96.7 F L 97.2 F L Pulse Rate 74 70 Respiratory Rate 20 18 Blood Pressure 99/55 L 124/69 Pulse Oximetry 95 96 Intake & Output 05/15/18 05/16/18 05/16/18 18:59 06:59 18:59 Intake Total 180 / 180 0 / 0 Output Total 1100 / 1100 400 / 400 Balance -920 / -920 -400 / -400 Weight 70.4 kg Intake: Oral 180 / 180 0 / 0 Output: Urine 1100 / 1100 400 / 400 Other: # Bowel Movements 0 Narrative: GENERAL: Elderly male in no distress on nasal cannula SKIN: Warm and dry. Few scattered ecchymoses bilateral upper extremities. CARDIOVASCULAR: Regular rate and rhythm. S1, S2. No S4. Without murmur RESPIRATORY: Decreased breath sounds equal bilaterally and basal crackles. No wheezing. GASTROINTESTINAL: Abdomen soft, non-tender, nondistended. Normoactive bowel sounds appreciated. MUSCULOSKELETAL: Extremities without clubbing, cyanosis, or edema. NEUROLOGICAL: Awake and alert. No obvious cranial nerve deficits. Motor grossly within normal limits. - Urinary Catheter Management Indwelling Urethral Catheter Cath placed during this visit: yes, but has since been removed by the nurse Reason for continuing: Not indwelling catheter Insertion date: 05/09/18 Insertion time: 17:45 Removal date: 05/09/18 Removal time: 12:45 Straight Cath placed during this visit: no Reason for continuing: Not indwelling catheter Results - Labs CBC & Chem 7: 05/11/18 09:11 05/15/18 08:35 Laboratory Results - last 24 hr 05/16/18 05/16/18 05/16/18 02:56 06:11 07:51 POC Glucose 126 H 98 84 05/16/18 05/16/18 11:47 16:46 POC Glucose 133 H 118 H - Procedures none Assessment and Plan - Assessment (1) Aspiration pneumonia Code(s): J69.0 - Pneumonitis due to inhalation of food and vomit Status: Acute (2) Acute hypoxemic respiratory failure Code(s): J96.01 - Acute respiratory failure with hypoxia Status: Acute (3) SIRS (systemic inflammatory response syndrome) Code(s): R65.10 - Systemic inflammatory response syndrome (SIRS) of non- infectious origin without acute organ dysfunction Status: Acute (4) Right bundle branch block Code(s): I45.10 - Unspecified right bundle-branch block Status: Chronic (5) Sinus tachycardia Code(s): R00.0 - Tachycardia, unspecified Status: Acute (6) COPD (chronic obstructive pulmonary disease) Code(s): J44.9 - Chronic obstructive pulmonary disease, unspecified Status: Chronic (7) Paroxysmal atrial fibrillation Code(s): I48.0 - Paroxysmal atrial fibrillation Status: Suspected (8) Coronary artery disease Code(s): I25.10 - Atherosclerotic heart disease of [place] coronary artery without angina pectoris Status: Chronic (9) Essential hypertension Code(s): I10 - Essential (primary) hypertension Status: Chronic (10) Hypothyroidism Code(s): E03.9 - Hypothyroidism, unspecified Status: Chronic (11) Acute kidney injury Code(s): N17.9 - Acute kidney failure, unspecified Status: Acute (12) Normocytic anemia Code(s): D64.9 - Anemia, unspecified Status: Acute - Plan 1. Cont antibiotics for 3 days 2. Wean O2 to 3 L. 3. BIPAP 12/5 cm at HS. 4. Cont Duoneb nebs qid prn 5. PT Evaluation and rehab placement 6. Lasix 20 mg daily. 7. Prednisone 20 mg daily (6) COPD (chronic obstructive pulmonary disease) Qualifiers: COPD type: unspecified COPD Qualified Code(s): J44.9 - Chronic obstructive pulmonary disease, unspecified (8) Coronary artery disease Qualifiers: Coronary Disease-Associated Artery/Lesion type: unspecified vessel or lesion type [place] vs. transplanted heart: [place] heart Associated angina: without angina Qualified Code(s): I25.10 - Atherosclerotic heart disease of [place] coronary artery without angina pectoris (10) Hypothyroidism Qualifiers: Hypothyroidism type: unspecified Qualified Code(s): E03.9 - Hypothyroidism, unspecified
[2018-05-17] MEDS: Insulin NovoLOG Aspart Correctional Sugar Inj SQ SCH ×4 (03:13→18:06)
[2018-05-17] MEDS: Heparin - SQ 10,000 UNITS/ML Vial SQ SCH (06:13)
[2018-05-17] MEDS: dilTIAZem 30 MG Tablet PO SCH ×2 (09:31→13:36)
[2018-05-17] MEDS: TRELEGY ELLIPTA INH SCH (09:31)
[2018-05-17] MEDS: levoFLOXacin 750 MG Tablet PO SCH (09:31)
[2018-05-17] MEDS: predniSONE 20 MG Tablet PO SCH (09:32)
[2018-05-17] MEDS: Furosemide 20 MG Tablet PO SCH (09:33)
[2018-05-17] MEDS: Allopurinol 100 MG Tablet PO SCH (09:33)
--- NOTE | 2018-05-17 10:07 | P.PN ---
Subjective Interval history: Follow-up for hypoxic respiratory failure, pneumonia. Patient is currently resting in bed. No fever or chills. Currently on nasal cannula 3 L. Physical Exam Vital signs: Vital Signs 05/16/18 12:00 05/16/18 16:00 05/16/18 20:00 Temperature 96.7 F L 97.2 F L 94.5 F L Pulse Rate 80 66 77 Respiratory Rate 20 18 18 Blood Pressure 99/55 L 124/69 116/56 L Pulse Oximetry 95 96 94 L 05/16/18 20:40 05/17/18 00:00 05/17/18 04:00 Temperature 96.1 F L 94.5 F L Pulse Rate 75 69 Respiratory Rate 18 18 Blood Pressure 120/66 122/64 Pulse Oximetry 94 L 94 L 95 05/17/18 08:27 Temperature 96.3 F L Pulse Rate 71 Respiratory Rate 18 Blood Pressure 129/89 Pulse Oximetry 94 L Intake & Output 05/16/18 05/17/18 05/17/18 18:59 06:59 18:59 Intake Total 0 / 0 Output Total 320 / 320 Balance -320 / -320 Weight 70.8 kg Intake: Oral 0 / 0 Output: Urine 320 / 320 Other: # Voids 5 # Bowel Movements 0 Narrative: GENERAL: Elderly male in no distress on nasal cannula SKIN: Warm and dry. Few scattered ecchymoses bilateral upper extremities. CARDIOVASCULAR: Regular rate and rhythm. S1, S2. No S4. Without murmur RESPIRATORY: Decreased breath sounds equal bilaterally and basal crackles. No wheezing. GASTROINTESTINAL: Abdomen soft, non-tender, nondistended. Normoactive bowel sounds appreciated. MUSCULOSKELETAL: Extremities without clubbing, cyanosis, or edema. NEUROLOGICAL: Awake and alert. No obvious cranial nerve deficits. Motor grossly within normal limits. - Urinary Catheter Management Indwelling Urethral Catheter Cath placed during this visit: yes, but has since been removed by the nurse Reason for continuing: Not indwelling catheter Insertion date: 05/09/18 Insertion time: 17:45 Removal date: 05/09/18 Removal time: 12:45 Straight Cath placed during this visit: no Reason for continuing: Not indwelling catheter Results - Labs CBC & Chem 7: 05/11/18 09:11 05/15/18 08:35 Laboratory Results - last 24 hr 05/16/18 05/16/18 05/17/18 11:47 16:46 06:17 POC Glucose 133 H 118 H 118 H - Procedures none Assessment and Plan - Plan This is an 87-year-old male patient with: Acute respiratory failure/hypoxic hypercapnic suspect secondary to legionella pneumonia. Improved tolerating nasal cannula History of chronic recurrent pneumonia History of COPD/tobaccoism Obstructive sleep apnea on nocturnal BiPAP. Stable only on nasal cannula for the past several nights -Leukocytosis noted, trending down. May be elevated secondary to steroids. -Blood cultures negative to date, continue to monitor. Sputum cultures negative. -BiPAP as needed, supplemental O2 as needed. -Chest x-ray revealed the lungs to be symmetrically aerated without evidence of mass, infiltrate or effusion other than mild consolidation both lung bases -CT pulmonary angiogram revealed no PE. Bilateral lower lobe infiltrates/ consolidation. Right hilar lymphadenopathy 2.1 cm vs mass, pulmo ff -Urine pneumococcal Ag negative, urine Legionella antigen positive. Mycoplasma pending. -Antibiotics deescalated to Levaquin thru 05/19 -Resume fluticasone/umeclidinium/Vilanterol daily -Albuterol/ipratropium aerosols every 4 hours with albuterol aerosols every 2 hours as needed dyspnea -Wean prednisone -05/10 revealed infiltrates with pulmonary edema. CXR on 05/11 was showing some edema. Clinically improving tolerating nasal cannula decrease Lasix Elevated troponin Right bundle branch block Coronary artery disease status post CABG x5 History of coronary artery stent Essential hypertension Hyperlipidemia History of paroxysmal atrial fibrillation currently in sinus tachycardia History of AAA -EKG in the ED revealed sinus tachycardia. Rate 130s. Borderline first-degree AV block. Right bundle branch block. -Will hold off on cardiology consultation as likely type II demand ischemia from tachycardia unless new acute cardiac findings -Home medication is diltiazem 120 mg daily for hypertension. Currently 15 mg 4 times daily -Resume aspirin 81 mg daily -Holding isosorbide mononitrate 60 mg daily in light of borderline blood pressures -Continue pravastatin 80 mg daily/home medication for dyslipidemia -Echocardiogram 2017 revealed EF around 50-55%. Left atrial dilatation. Moderate MR. PAP 40-50 mmHg Gastroesophageal reflux disease P.o. pured diet with thickened fluids Modified barium swallow with speech therapy Patient is on omeprazole 20 mg daily at home. Continue pantoprazole 40 mg daily Docusate sodium/senna 1 tablet twice daily for bowel regimen Acute kidney injury. Resolved - Neg urine eosinophils - Ultrasound w/o block - Continue crystalloid resuscitation - Avoid nephrotoxic medications - Monitor urine output Normocytic anemia -Monitor CBC. Follow trends -No indication for transfusion of blood products at this time. -Previously on apixaban but off due to frequent falls Hypomagnesia Hypokalemia -Improving. Replace as indicated. Follow BMP. Hypothyroidism Gout -Continue levothyroxine at 25 mcg daily. TSH 0.9 -Continue allopurinol 100 mg daily Restless leg syndrome Gait and balance disorder -Acetaminophen 650 mg by mouth every 6 hours as needed fever -Hydrocodone/acetaminophen 5/325 1 tablet every 4 hours as needed pain 1 through 5 -Morphine sulfate 2 mg IV every 2 hours as needed pain 6 through 10 -Ropinirole 0.5 mg 3 times daily for restless leg syndrome -CT brain revealed no acute intracranial findings -Physical therapy/occupational therapy evaluate and treat GI prophylaxis: Pantoprazole. DVT prophylaxis: SCD. Heparin. Discussed with Physician from [facility]. We discussed that patient would benefit from short term rehab since his functional status prior to this hospitalization was excellent. [facility] physician agreed to approve SNF for 7 days. Discussed with patient's son.
--- NOTE | 2018-05-17 11:48 | P.PN ---
Subjective Interval history: Seems comfortable on o2 3 L. Has cough and mild wheezing. Physical Exam Vital signs: Vital Signs 05/16/18 12:00 05/16/18 16:00 05/16/18 20:00 Temperature 96.7 F L 97.2 F L 94.5 F L Pulse Rate 80 66 77 Respiratory Rate 20 18 18 Blood Pressure 99/55 L 124/69 116/56 L Pulse Oximetry 95 96 94 L 05/16/18 20:40 05/17/18 00:00 05/17/18 04:00 Temperature 96.1 F L 94.5 F L Pulse Rate 75 69 Respiratory Rate 18 18 Blood Pressure 120/66 122/64 Pulse Oximetry 94 L 94 L 95 05/17/18 08:27 05/17/18 10:15 Temperature 96.3 F L Pulse Rate 71 Respiratory Rate 18 Blood Pressure 129/89 Pulse Oximetry 94 L 93 L Intake & Output 05/16/18 05/17/18 05/17/18 18:59 06:59 18:59 Intake Total 0 / 0 Output Total 320 / 320 Balance -320 / -320 Weight 70.8 kg Intake: Oral 0 / 0 Output: Urine 320 / 320 Other: # Voids 5 # Bowel Movements 0 Narrative: GENERAL: Elderly male alert , in no distress on nasal cannula SKIN: Warm and dry. Few scattered ecchymoses bilateral upper extremities. CARDIOVASCULAR: Regular rate and rhythm. S1, S2. No S4. Without murmur RESPIRATORY: Decreased breath sounds equal bilaterally and basal crackles. No wheezing. GASTROINTESTINAL: Abdomen soft, non-tender, nondistended. Normoactive bowel sounds appreciated. MUSCULOSKELETAL: Extremities without clubbing, cyanosis, or edema. NEUROLOGICAL: Awake and alert. No obvious cranial nerve deficits. Motor grossly within normal limits. - Urinary Catheter Management Indwelling Urethral Catheter Cath placed during this visit: yes, but has since been removed by the nurse Reason for continuing: Not indwelling catheter Insertion date: 05/09/18 Insertion time: 17:45 Removal date: 05/09/18 Removal time: 12:45 Straight Cath placed during this visit: no Reason for continuing: Not indwelling catheter Results - Labs CBC & Chem 7: 05/11/18 09:11 05/15/18 08:35 Laboratory Results - last 24 hr 05/16/18 05/16/18 05/17/18 11:47 16:46 06:17 POC Glucose 133 H 118 H 118 H 05/17/18 11:03 POC Glucose 112 H - Procedures none Assessment and Plan - Assessment (1) Aspiration pneumonia Code(s): J69.0 - Pneumonitis due to inhalation of food and vomit Status: Acute (2) Acute hypoxemic respiratory failure Code(s): J96.01 - Acute respiratory failure with hypoxia Status: Acute (3) SIRS (systemic inflammatory response syndrome) Code(s): R65.10 - Systemic inflammatory response syndrome (SIRS) of non- infectious origin without acute organ dysfunction Status: Acute (4) Right bundle branch block Code(s): I45.10 - Unspecified right bundle-branch block Status: Chronic (5) Sinus tachycardia Code(s): R00.0 - Tachycardia, unspecified Status: Acute (6) COPD (chronic obstructive pulmonary disease) Code(s): J44.9 - Chronic obstructive pulmonary disease, unspecified Status: Chronic (7) Paroxysmal atrial fibrillation Code(s): I48.0 - Paroxysmal atrial fibrillation Status: Suspected (8) Coronary artery disease Code(s): I25.10 - Atherosclerotic heart disease of [place] coronary artery without angina pectoris Status: Chronic (9) Essential hypertension Code(s): I10 - Essential (primary) hypertension Status: Chronic (10) Hypothyroidism Code(s): E03.9 - Hypothyroidism, unspecified Status: Chronic (11) Acute kidney injury Code(s): N17.9 - Acute kidney failure, unspecified Status: Acute (12) Normocytic anemia Code(s): D64.9 - Anemia, unspecified Status: Acute - Plan 1. Cont antibiotics till 05/19 2. Wean O2 to 3 L. 3. D/C BIPAP 4. Cont Duoneb nebs qid prn 5. PT Evaluation and rehab placement 6. Lasix 20 mg daily. 7. Prednisone 20 mg daily and taper over 3 weeks. (6) COPD (chronic obstructive pulmonary disease) Qualifiers: COPD type: unspecified COPD Qualified Code(s): J44.9 - Chronic obstructive pulmonary disease, unspecified (8) Coronary artery disease Qualifiers: Coronary Disease-Associated Artery/Lesion type: unspecified vessel or lesion type [place] vs. transplanted heart: [place] heart Associated angina: without angina Qualified Code(s): I25.10 - Atherosclerotic heart disease of [place] coronary artery without angina pectoris (10) Hypothyroidism Qualifiers: Hypothyroidism type: unspecified Qualified Code(s): E03.9 - Hypothyroidism, unspecified
--- NOTE | 2018-05-18 07:35 | P.DS ---
Date of admission: 05/08/18 16:54 Primary care physician: Jem Kaufman MD DS: Medications - Discharge Medications Prescriptions: levofloxacin 750 mg PO DAILY #4 tab prednisone 20 mg PO DAILY #5 tab DS: Summary - Time Spent with Patient Total time spent providing and/or coordinating discharge services: Greater than 30 minutes Exam Vital signs: Vital Signs 05/17/18 08:27 05/17/18 10:15 05/17/18 12:02 Temperature 96.3 F L 96.2 F L Pulse Rate 71 70 Respiratory Rate 18 18 Blood Pressure 129/89 126/66 Pulse Oximetry 94 L 93 L 91 L Intake & Output 05/17/18 05/18/18 05/18/18 18:59 06:59 18:59 Other: Date of Last Bowel Movement 05/17/18 Results Labs on day of discharge: Labs from last 24 hours 05/17/18 05/17/18 16:58 11:03 POC Glucose 127 H 112 H - Impressions ITS Impressions Head CT 05/08/18 00:00 CONCLUSION: 1. No acute intracranial abnormalities. . Chest CTA 05/08/18 16:02 CONCLUSION: 1. Suboptimal exam but no definite evidence for pulmonary embolus. 2. Worsening bilateral lung consolidation especially posteriorly with air bronchograms. Also worsening adenopathy and possible 2.1 cm mass or enlarged lymph node in the right hilar region. Cannot exclude underlying neoplasm. Abdomen/Bladder Ultrasound 05/09/18 00:00 CONCLUSION: 1. Mildly echogenic without hydronephrosis or mass. Videofluoroscopic Swallow 05/09/18 00:00 CONCLUSION: Please see detailed report by speech pathology. Chest X-Ray 05/11/18 07:15 CONCLUSION: Bilateral areas of infiltrate and small effusions primary consideration would be congestive failure though underlying pneumonia is not excluded. Appearance of the parenchyma has mildly worsened compared to previous dated . Discharge Plan - Discharge Disposition Patient Disposition: Discharge to SNF - Discharge Condition Condition: Fair - Discharge Order Discharge Orders: Discharge Order (Routine); Ordered 05/14/18 Ordered By: Gabriel Denise - Discharge Details Anticipated Discharge Date: 05/17/18 - Physicians Team Primary Care Provider: Jem Kaufman Attending Provider: Hayde Shaikh Other Providers: Tulio Gramajo MD ; Celso Stack MD ; [facility], [place] ; Francisco Campos,Agency
== END 2018-05-17 18:08 ==
LOC: PHED 15:50 → PHEDA 16:54 → PHICU 22:10 → PH3 05-14 18:20
PROVIDERS: ADMIT Hospitalist; ATTEND Hospitalist

== ENCOUNTER 2018-06-18 18:18 | Inpatient (IN) ==
[2018-06-18] MEDS ORDERED: Sod Chloride 0.9% Inj 1,000 ML IV.SIG ONE (19:47)
--- NOTE | 2018-06-18 20:08 | ED ---
HPI General Chief complaint: Shortness of Breath/Dyspnea Stated complaint: sob Time Seen by Provider: 06/18/18 18:46 Source: patient Mode of arrival: wheelchair Limitations: no limitations History of Present Illness HPI narrative: Patient presents for evaluation. Reports weight loss over the last 6 months. States he is lost 82 pounds. Reports admission in the past with multiple bouts of aspiration pneumonia. Diagnosed with dysphagia. Recommendations for pured foods however the patient states he cannot tolerate them. Family is present. He lives at home with his who cannot care for him. States he is gotten too weak to transfer. On O2 at home. Significant past medical history. Basically he complains of failure to thrive reports no previous GI consult. Questions and a desire for gastric tube for feeding. Denies any new chest pain shortness of breath urinary or bowel symptoms. Denies any nausea vomiting diarrhea or fever. Onset (ago): week(s) (6) Location: mouth Radiation: non-radiation Severity: moderate Severity scale (1-10): 1 Relieving factors: none Exacerbating factors: eating Associated symptoms: Reports loss of appetite and weakness Treatments prior to arrival: Reports none Related Data Home Medications Medication Instructions Recorded Confirmed allopurinol 100 mg PO DAILY 05/08/18 06/18/18 aspirin [Aspir-81] 81 mg PO DAILY 05/08/18 06/18/18 cholecalciferol (vitamin D3) 1,000 unit PO DAILY 05/08/18 06/18/18 [Vitamin D3] diltiazem HCl 120 mg PO DAILY 05/08/18 06/18/18 xsaxerspzoi-ftaceyzog-nighduza 1 inh INHALATION DAILY 05/08/18 06/18/18 [Trelegy Ellipta] isosorbide mononitrate 60 mg PO DAILY 05/08/18 06/18/18 levothyroxine 25 mcg PO DAILY 05/08/18 06/18/18 omeprazole 20 mg PO DAILY 05/08/18 06/18/18 pravastatin 80 mg PO DAILY 05/08/18 06/18/18 ropinirole 0.5 mg PO TID PRN 05/08/18 06/18/18 Previous Rx's Medication Instructions Recorded albuterol sulfate 2.5 mg NEB Q2HR NEB PRN ml 05/14/18 furosemide 20 mg PO DAILY tab 11/03/18 heparin (porcine) 5,000 units SUBCUT Q12H ml 05/14/18 ipratropium-albuterol 1 amp NEB Q6HR NEB ml 05/14/18 levofloxacin 750 mg PO DAILY #4 tab 05/14/18 potassium chloride 20 meq PO DAILY tab 05/14/18 prednisone 20 mg PO DAILY #5 tab 05/16/18 Allergies Allergy/AdvReac Type Severity Reaction Status Date / Time peanut oil Allergy Severe Diarrhea Verified 06/18/18 18:41 peanut Allergy Intermediate Diarrhea Verified 06/18/18 18:41 Review of Systems ROS: all other systems reviewed are negative [facility] Medical History Medical History Abdominal aortic aneurysm (Acute) Abnormality of gait due to impairment of balance (Acute) Chronic pneumonia (Acute) Coronary artery disease (Acute) Essential hypertension (Acute) Gastroesophageal reflux disease (Acute) Gout (Acute) History of atrial fibrillation (Acute) History of cataract (Acute) Hyperlipidemia (Acute) Hypothyroidism (Acute) Osteoarthritis (Acute) Restless leg syndrome (Acute) Surgical History Surgical History History of cholecystectomy (Acute) History of coronary artery bypass graft (Acute) History of coronary artery stent placement (Acute) History of tonsillectomy (Acute) Family History Family History Other Family history of coronary artery disease Family history pertaining to father Patient's mother is Social History Social History Substance History: No History of Abuse Second Hand Smoke Exposure: No Smoking Status: Former smoker How Often Do You Have a Drink Containing Alcohol: Monthly or less Recent Travel in [facility] within the Last 8 Weeks: No Recent Out of Country Travel within the Last 8 Weeks: No Immunization History Tetanus Immunization: >5 Years Exam Narrative Exam Narrative: GENERAL: Poorly nourished, failure to thrive CARDIOVASCULAR: Regular rate and rhythm without murmurs, gallops, or rubs. Tachycardic RESPIRATORY: Breath sounds equal bilaterally. No accessory muscle use. On oxygen via nasal cannula GASTROINTESTINAL: Abdomen soft, decreased bowel sounds, non-tender, nondistended. MUSCULOSKELETAL: No cyanosis, or edema. BACK: Nontender without obvious deformity. No CVA tenderness. Course Initial Documented Vital Signs Pulse Rate 114 H 06/18/18 18:44 Respiratory Rate 16 06/18/18 18:44 Blood Pressure 95/68 L 06/18/18 18:44 Pulse Oximetry 96 06/18/18 18:44 Last Documented Vital Signs Pulse Rate 102 H 06/18/18 21:27 Respiratory Rate 16 06/18/18 18:44 Blood Pressure 95/68 L 06/18/18 18:44 Pulse Oximetry 97 06/18/18 21:26 Medical Decision Making MDM Narrative Medical decision making narrative: Hypernatremia, acute kidney injury, acidosis with an anion gap of 16 all noted. Additional failure to thrive malnutrition and dysphagia. Spoke with Dr. Salamanca who is in agreement will admit for possible GI and case management rn consultation Medical Screen Exam Complete: Yes Emergency Medical Condition: Yes Differential Diagnosis Differential Diagnosis: Failure to thrive, malnutrition, weight loss, frequent aspiration 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s Medical records reviewed: Yes I reviewed the patient's medical records. Lab Data Lab results reviewed: Yes I reviewed the patient's lab results. Result diagrams: 06/18/18 19:10 06/18/18 19:10 Lab Results 06/18/18 06/18/18 Range/Units 19:10 19:10 CBC w Diff Auto diff final WBC 9.3 (4.0-11.0) th/mm3 RBC 5.16 (4.50-5.90) mil/mm3 Hgb 14.3 (13.0-17.0) gm/dL Hct 43.7 (39.0-51.0) % MCV 84.7 (80.0-100.0) fL MCH 27.7 (27.0-34.0) pg MCHC 32.7 (32.0-36.0) % RDW 19.6 H (11.6-17.2) % Plt Count 293 (150-450) th/mm3 MPV 10.4 (7.0-11.0) fL Neut % (Auto) 62.0 (16.0-70.0) % Lymph % (Auto) 26.0 (9.0-44.0) % Ness % (Auto) 10.3 H (0.0-8.0) % Eos % (Auto) 0.6 (0.0-4.0) % Baso % (Auto) 1.1 (0.0-2.0) % Neut # (Auto) 5.7 (1.8-7.7) th/mm3 Lymph # (Auto) 2.4 (1.0-4.8) th/mm3 Ness # (Auto) 1.0 H (0.0-0.9) th/mm3 Eos # (Auto) 0.1 (0.0-0.4) th/mm3 Baso # (Auto) 0.1 (0.0-0.2) th/mm3 WBC Differential . Differential Comment . Sodium 159 H* (136-145) meq/L Potassium 4.3 (3.5-5.1) meq/L Chloride 124 H (98-107) meq/L Carbon Dioxide 19.5 L (21.0-32.0) meq/L Anion Gap 16 H (5-15) meq/L BUN 105 H (7-18) mg/dL Creatinine 2.80 H (0.60-1.30) mg/dL Estimated GFR 21 L (>89) mL/min Random Glucose 120 H (74-106) mg/dL Calcium 9.5 (8.5-10.1) mg/dL Phosphorus 5.8 H (2.5-4.9) mg/dL Magnesium 2.8 H (1.5-2.5) mg/dL Total Bilirubin 1.0 (0.2-1.0) mg/dL AST 46 H (15-37) U/L ALT 35 (12-78) U/L Alkaline Phosphatase 125 H (45-117) U/L Troponin I 0.12 H (0.02-0.05) ng/mL Total Protein 8.5 H (6.4-8.2) g/dL Albumin 2.7 L (3.4-5.0) g/dL TSH 1.920 (0.358-3.740) uIU/mL Imaging Data Radiologist's impression: Chest X-Ray 06/18/18 20:21 CONCLUSION: 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 ECG Data Attestation: I personally reviewed and interpreted this ECG as follows: (EKG reveals sinus tachycardia rate of [address] segment elevations or depressions, EKG with artifact since patient would not stop moving) Discharge Plan Discharge Disposition Patient Disposition: ED Admit(ED Internal Use Only) Discharge Condition Condition: Fair Discharge Order Discharge Orders: ED Use Only Admit Order (Routine); Ordered 06/18/18 Ordered By: Sumeet Salas Discharge Details Diagnosis: Hypernatremia, Acidosis, lactic, MATILDE (acute kidney injury), Adult failure to thrive, Malnutrition, Dysphagia Physicians Team ED Provider: Sumeet Salas Primary Care Provider: Jem Kaufman Attending Provider: Milady Beltran Rxs /Orders / Referrals /Forms Prescriptions: No Action allopurinol 100 mg Tablet 100 mg PO DAILY RF: 0 aspirin [Aspir-81] 81 mg Tablet,Delayed Release (Dr/Ec) 81 mg PO DAILY RF: 0 levothyroxine 25 mcg Tablet 25 mcg PO DAILY RF: 0 isosorbide mononitrate 60 mg Tablet Extended Release 24 Hr 60 mg PO DAILY RF: 0 pravastatin 80 mg Tablet 80 mg PO DAILY RF: 0 ropinirole 0.5 mg Tablet 0.5 mg PO TID PRN (Reason: Restless Leg(S)) RF: 0 diltiazem HCl 120 mg Capsule,Ext.Rel 24h Degradable 120 mg PO DAILY RF: 0 omeprazole 20 mg Capsule,Delayed Release(Dr/Ec) 20 mg PO DAILY RF: 0 cholecalciferol (vitamin D3) [Vitamin D3] 1,000 unit Tablet 1,000 unit PO DAILY RF: 0 aqaqcyybagl-ptihvbskv-gngtkxlr [Trelegy Ellipta] 100-62.5-25 mcg Blister With Device 1 inh INHALATION DAILY RF: 0 ipratropium-albuterol 0.5 mg-3 mg(2.5 mg base)/3 mL Solution For Nebulization 1 amp NEB Q6HR NEB RF: 0 albuterol sulfate 2.5 mg /3 mL (0.083 %) Solution For Nebulization 2.5 mg NEB Q2HR NEB PRN (Reason: Shortness Of Breath/Wheezing) RF: 0 potassium chloride 20 mEq Tablet,Er Particles/Crystals 20 meq PO DAILY RF: 0 furosemide 20 mg Tablet 20 mg PO DAILY RF: 0 levofloxacin 750 mg Tablet 750 mg PO DAILY Qty: 4 RF: 0 heparin (porcine) 10,000 unit/mL Solution 5,000 units subcut Q12H RF: 0 prednisone 20 mg Tablet 20 mg PO DAILY Qty: 5 RF: 0 Discharge Interventions Interventions: Vital Signs Last Done: 06/18/18 18:44 Status ED Status: Admitted Patient
[2018-06-18 20:14] LABS: Baso # (Auto) 0.1 th/mm3 (0.0-0.2); Baso % (Auto) 1.1 % (0.0-2.0); Eos # (Auto) 0.1 th/mm3 (0.0-0.4); Eos % (Auto) 0.6 % (0.0-4.0); Hematocrit 43.7 % (39.0-51.0); Hemoglobin 14.3 gm/dL (13.0-17.0); Lymph # (Auto) 2.4 th/mm3 (1.0-4.8); Mean Corpuscular HGB Conc 32.7 % (32.0-36.0); Mean Corpuscular Hemoglobin 27.7 pg (27.0-34.0); Mean Corpuscular Volume 84.7 fL (80.0-100.0); Mean Platelet Volume 10.4 fL (7.0-11.0); Mono % (Auto) 10.3 % (0.0-8.0); Neut # (Auto) 5.7 th/mm3 (1.8-7.7); Platelet Count 293 th/mm3 (150-450); Red Blood Count 5.16 mil/mm3 (4.50-5.90); Red Cell Distribution Width 19.6 % (11.6-17.2); White Blood Count 9.3 th/mm3 (4.0-11.0)
[2018-06-18 20:33] LABS: Alanine Aminotransferase 35 U/L (12-78); Albumin 2.7 g/dL (3.4-5.0); Anion Gap 16 meq/L (5-15); Aspartate Aminotransferase 46 U/L (15-37); Blood Urea Nitrogen 105 mg/dL (7-18); Calcium 9.5 mg/dL (8.5-10.1); Carbon Dioxide 19.5 meq/L (21.0-32.0); Chloride 124 meq/L (98-107); Glomerular Filtration Rate 21 mL/min (>89); Glucose,Random 120 mg/dL (74-106); Magnesium 2.8 mg/dL (1.5-2.5); Phosphorus 5.8 mg/dL (2.5-4.9); Potassium 4.3 meq/L (3.5-5.1); Total Protein 8.5 g/dL (6.4-8.2)
[2018-06-18 20:35] LABS: Sodium 159 meq/L (136-145)
--- NOTE | 2018-06-18 20:43 | XR ---
EXAM DATE: 06/18/2018 8:39 PM EST AGE/SEX: 87 years / Male INDICATIONS: Dyspnea. CLINICAL DATA: This is the patient's initial encounter. Patient reports that signs and symptoms have been present for 1 day and indicates a pain score of 0/10. MEDICAL/SURGICAL HISTORY: . Gastroesophageal reflux disease. Abdominal aortic aneurysm. Chroni c pneumonia. Coronary artery disease. Essential hypertension. Gout. Atrial fibrillation. Hypothyroidi sm. Osteoarthritis. Restless leg syndrome. . Cholecystectomy. Tonsillectomy. Coronary artery bypass graft. Coronary artery stent placement. COMPARISON: [facility], CHEST 1V SINGLE AP, 05/11/2018. [facility], CHEST 1V SINGLE AP, 05/10/2018. [facility], EMANI ST 1V SINGLE AP, 05/09/2018. . FINDINGS: The patient is status post sternotomy. There is interstitial disease seen at the bases. No effusion i s seen. The heart size is normal. Clips are seen in the right quadrant. 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 Electronically signed by: Tulio Maya MD 06/18/2018 8:41 PM EST
[2018-06-18 20:49] LABS: Alkaline Phosphatase 125 U/L (45-117); Troponin I 0.12 ng/mL (0.02-0.05)
[2018-06-18] MEDS ORDERED: Acetaminophen 325 MG Tablet PO PRN (21:38)
[2018-06-18] MEDS ORDERED: Bisacodyl 10 MG Supp RECTAL PRN (21:38)
[2018-06-19 00:35] LABS: Clarity,Urine Clear (Clear); Glucose,Urine (UA) Negative (Negative); Leukocyte Esterase,Urine Negative (Negative); Nitrite,Urine Negative (Negative); Specific Gravity,Urine Greater/Equal 1.030 (1.002-1.035); Urobilinogen,Urine 0.2 mg/dL (Less than 2)
[2018-06-19] MEDS: KCL 20 mEq/D5W/NaCl 0.45% Inj 1,000 ML IV.CONT SCH ×3 (00:37→18:41)
[2018-06-19 00:50] LABS: Bilirubin,Urine Negative (Negative); Color,Urine Amber (Yellw/Straw); Ictotest,Urine Negative (Negative)
[2018-06-19 00:51] LABS: RBC,Urine 0-3 /hpf (0-3); Squamous Epithelial Cell,Urine 0-5 /hpf (0-5); WBC,Urine 0-5 /hpf (0-5)
[2018-06-19 06:19] LABS: Baso # (Auto) 0.1 th/mm3 (0.0-0.2); Baso % (Auto) 0.8 % (0.0-2.0); Eos # (Auto) 0.1 th/mm3 (0.0-0.4); Eos % (Auto) 1.1 % (0.0-4.0); Hematocrit 37.1 % (39.0-51.0); Hemoglobin 12.2 gm/dL (13.0-17.0); Lymph # (Auto) 1.6 th/mm3 (1.0-4.8); Lymph % (Auto) 21.7 % (9.0-44.0); Mean Corpuscular HGB Conc 32.9 % (32.0-36.0); Mean Corpuscular Hemoglobin 27.9 pg (27.0-34.0); Mean Corpuscular Volume 84.8 fL (80.0-100.0); Mean Platelet Volume 9.1 fL (7.0-11.0); Mono # (Auto) 0.6 th/mm3 (0.0-0.9); Mono % (Auto) 8.4 % (0.0-8.0); Neut # (Auto) 5.1 th/mm3 (1.8-7.7); Platelet Count 223 th/mm3 (150-450); Red Blood Count 4.37 mil/mm3 (4.50-5.90); Red Cell Distribution Width 19.9 % (11.6-17.2); White Blood Count 7.5 th/mm3 (4.0-11.0)
[2018-06-19 06:45] LABS: Alanine Aminotransferase 31 U/L (12-78); Albumin 2.3 g/dL (3.4-5.0); Alkaline Phosphatase 100 U/L (45-117); Anion Gap 9 meq/L (5-15); Aspartate Aminotransferase 43 U/L (15-37); Blood Urea Nitrogen 96 mg/dL (7-18); Calcium 8.4 mg/dL (8.5-10.1); Carbon Dioxide 23.6 meq/L (21.0-32.0); Chloride 127 meq/L (98-107); Glomerular Filtration Rate 30 mL/min (>89); Glucose,Random 112 mg/dL (74-106); Potassium 3.6 meq/L (3.5-5.1); Total Protein 7.1 g/dL (6.4-8.2)
[2018-06-19 06:47] LABS: Sodium 160 meq/L (136-145)
[2018-06-19] MEDS ORDERED: Influenza (Quadrivalent) Vaccine 0.5 ML Syringe IM ONE (09:00)
--- NOTE | 2018-06-19 09:53 | ECG ---
Date Performed: 06/19/2018 Time Performed: 07:13:20 PTAGE: 87 years EKG: Sinus rhythm MODERATE INTRAVENTRICULAR CONDUCTION DELAY ST DEVIATION AND MODERATE T-WAVE ABNORMALITY, CONSIDER LA TERAL ISCHEMIA ABNORMAL ECG Since PREVIOUS TRACING , no significant change noted PREVIOUS TRACIN06/18/2018 19.54 DOCTOR: Henrik Boudreaux Interpretating Date/Time 06/19/2018 09:53:41
--- NOTE | 2018-06-19 10:40 | ECG ---
Date Performed: 06/18/2018 Time Performed: 19:54:46 PTAGE: 87 years EKG: SINUS TACHYCARDIA MODERATE INTRAVENTRICULAR CONDUCTION DELAY ST DEVIATION AND MODERATE T-WA VE ABNORMALITY, CONSIDER LATERAL ISCHEMIA ABNORMAL ECG Compared to PREVIOUS TRACING , right bundle branch block resolved. PREVIOUS TRACIN05/08/2018 17.54 DOCTOR: Henrik Boudreaux Interpretating Date/Time 06/19/2018 10:39:54
[2018-06-19 12:15] LABS: Calcium 8.4 mg/dL (8.5-10.1); Carbon Dioxide 22.2 meq/L (21.0-32.0); Potassium 3.6 meq/L (3.5-5.1)
--- NOTE | 2018-06-19 12:29 | P.HP ---
History of Present Illness Primary Care Physician: Jem Kaufman MD Chief Complaint: Failure to thrive History of Present Illness: 87-year-old male with known history of silent aspiration, dysphagia, hypertension, coronary artery disease, hyperlipidemia, history of respiratory failure, history of aspiration pneumonia who presented to hospital because of profound weakness, malnutrition. Patient has had recent admission over the last couple months where he was diagnosed with significant dysphagia with modified barium swallow indicating that he has silent aspiration. Patient was continued on pured diet, thickened liquids. Patient is adamant that he does not like the consistency of the food, pured diet and he refuses to eat or drink it. Because of that he has had 12 kg weight loss in 1 month. He has had significant profound weakness where he cannot even stand on his own. Because of that he was brought into the hospital for evaluation. Patient was found to have acute kidney injury, severe dehydration, hypernatremia. The patient indicates that he came to hospital in order to get bypass feeding to where he could still eat. I did discuss with him that since he does not want to or tolerate the pured diet/thickened liquids then a PEG tube would be appropriate for nutritional support. Patient is not completely in agreement with that he wants to eat and swallow, however he just does not like the food and liquids that he has to do at this time. I notified him that the guide foreign tour will be and speak to him and he can discuss other possible ways to supply nutrition. - Diagnosis (1) Adult failure to thrive (2) Malnutrition (3) Dysphagia Inpatient Certification: I certify that the inpatient services were ordered in accordance with Medicare regulations governing the order. This includes certification that hospital inpatient services are reasonable and necessary and in the case of services not specified as inpatient-only under 42 CFR 419.22(n), that they are appropriately provided as inpatient services in accordance to with the 2-midnight benchmark under 43 CFR 412.3(e) Estimated Total Length of Stay (Days): 2 Plans for Post Hospital Care: Not yet determined Review of Systems All other systems reviewed negative except as stated in HPI Constitutional: Reports weight loss Neurologic: Reports weakness PMFSH - History History 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, Family Member - Medical History Medical History: Medical History (Last Reviewed 06/19/18 @ 12:20 by DARLIN Damon) Abdominal aortic aneurysm Abnormality of gait due to impairment of balance Chronic pneumonia Coronary artery disease Essential hypertension Gastroesophageal reflux disease Gout History of atrial fibrillation History of cataract Hyperlipidemia Hypothyroidism Osteoarthritis Restless leg syndrome - Surgical History Surgical History: Surgical History (Last Reviewed 06/19/18 @ 12:20 by DARLIN Damon) History of cholecystectomy History of coronary artery bypass graft History of coronary artery stent placement History of tonsillectomy - Family History Family History: Family History (Last Reviewed 06/19/18 @ 12:20 by DARLIN Damon) Other Family history of coronary artery disease Family history pertaining to father Patient's mother is - Tobacco History Second Hand Smoke Exposure: No Tobacco Use In Past 30 Days: No Smoking Status: Never smoker Tobacco Type: Cigarettes - Alcohol History How Often Do You Have a Drink Containing Alcohol: Never - Substance Use History Substance History: No History of Abuse - Travel History Recent Travel in the [place] Within the Last 8 Weeks: No Recent Travel Out of the Country Within the Last 8 Weeks: No - Immunization History Tetanus Immunization: Unable to Assess Hx Influenza Vaccine This Season: No Medications and Allergies Active Medications: Active Medications Acetaminophen (Tylenol) 650 mg PO Q4H PRN PRN Reason: Temp > 100.4 Al Hydroxide/Mg Hydroxide (Milk Of Magnesia Liq) 30 ml PO Q12H PRN PRN Reason: Mild Constipation Bisacodyl (Dulcolax Supp) 10 mg RECTAL DAILY PRN PRN Reason: SEVERE CONSITIPATION Potassium Chloride/Dextrose/Sod Cl (D5w/1/2ns + Kcl 20 Meq Inj) 1,000 mls @ 100 mls/hr IV.CONT .Q10H [facility] Last Admin: 06/19/18 08:41 Dose: 100 mls/hr Lactulose (Lactulose Liq) 30 ml PO DAILY PRN PRN Reason: SEVERE CONSITIPATION Ondansetron HCl (Zofran Inj) 4 mg IV.PUSH Q6H PRN PRN Reason: NAUSEA OR VOMITING Sennosides (Senokot) 17.2 mg PO Q12H PRN PRN Reason: Moderate Constipation Sodium Chloride (Ns Flush) 2 ml IV.FLUSH BID [facility] Last Admin: 06/19/18 10:49 Dose: Not Given Sodium Chloride (Ns Flush) 2 ml IV.FLUSH PRN PRN PRN Reason: FLUSH AFTER USING IV ACCESS Allergies Allergy/AdvReac Type Severity Reaction Status Date / Time peanut oil Allergy Severe Diarrhea Verified 06/18/18 18:41 peanut Allergy Intermediate Diarrhea Verified 06/18/18 18:41 Home Medications Medication Instructions Recorded Confirmed Type allopurinol 100 mg PO DAILY 05/08/18 06/18/18 History aspirin [Aspir-81] 81 mg PO DAILY 05/08/18 06/18/18 History cholecalciferol (vitamin D3) 1,000 unit PO DAILY 05/08/18 06/18/18 History [Vitamin D3] diltiazem HCl 120 mg PO DAILY 05/08/18 06/18/18 History dlfqidhkhze-odronfrzv-zecfbezs 1 inh INHALATION DAILY 05/08/18 06/18/18 History [Trelegy Ellipta] isosorbide mononitrate 60 mg PO DAILY 05/08/18 06/18/18 History levothyroxine 25 mcg PO DAILY 05/08/18 06/18/18 History omeprazole 20 mg PO DAILY 05/08/18 06/18/18 History pravastatin 80 mg PO DAILY 05/08/18 06/18/18 History ropinirole 0.5 mg PO TID PRN 05/08/18 06/18/18 History Exam Vital signs: Vital Signs 06/18/18 18:44 06/18/18 21:26 06/18/18 21:27 Temperature Pulse Rate 114 H 102 H Respiratory Rate 16 Blood Pressure 95/68 L Pulse Oximetry 96 97 06/18/18 22:10 06/19/18 00:00 06/19/18 00:10 Temperature Pulse Rate 102 H 82 90 Respiratory Rate 18 18 Blood Pressure 110/61 119/65 Pulse Oximetry 97 99 06/19/18 04:00 06/19/18 05:29 06/19/18 07:43 Temperature 96.3 F L Pulse Rate 82 80 Respiratory Rate 18 Blood Pressure 127/55 L Pulse Oximetry 99 98 06/19/18 08:00 06/19/18 09:00 Temperature 97.1 F L Pulse Rate 85 80 Respiratory Rate 15 Blood Pressure 122/59 L Pulse Oximetry 94 L Intake & Output 06/18/18 06/19/18 06/19/18 18:59 06:59 18:59 Intake Total 1480 / 1480 1100 / 1100 Output Total 325 / 325 150 / 150 Balance 1155 / 1155 950 / 950 Weight 58.2 kg Intake: IV 1000 / 1000 1000 / 1000 D5W/1/2NS + KCL 20 mEq Inj 1, 1000 / 1000 000 ML @ 100 mls/hr IV.CONT . Q10H [facility] Rx#:[id number] NS Inj 1,000 ML @ Wide Open IV. 1000 / 1000 SIG BOLUS ONE Rx#:[id number] Oral 480 / 480 100 / 100 Output: Urine 325 / 325 150 / 150 Other: Post Void Residual 2 Weight On Admission 58.7 kg Narrative: GENERAL: Well-developed, cachectic and malnourished, in no acute distress. alert and orientated HEENT: Head is normocephalic without any lesions or masses noted. Facial features are symmetric. Eyes: Pupils equal round reactive to light. Extraocular muscles are intact. Conjunctivae were clear. Oropharyngeal: Pharynx without any erythema edema. Tongue is midline without deviation. Buccal mucosa is moist without any masses or lesions. Patient with obvious malfunctioning dentures, patient cannot even speak without them floating around in his mouth NECK: Supple without any masses. Trachea midline no deviation. No JVD, no bruits are appreciated CARDIAC: Regular rhythm, regular rate. S1/S2 are heard. 2/6 ejection murmur, no gallops or rubs. LUNGS: Clear to auscultation bilaterally. No wheeze, rhonchi or rales. No use of accessory muscles on inspiration or expiration. ABDOMEN: Soft, nontender. Nondistended. Bowel sounds heard in all 4 quadrants. No organomegaly or masses. Negative rebound, negative guarding EXTREMITIES: No edema, pulses are equal bilaterally. No cyanosis or clubbing NEUROLOGY: Mood and affect appear appropriate. Cranial nerves II through XII grossly intact. Moving all extremities, speech is clear. Patient obviously has muscle atrophy Results - Labs CBC & Chem 7: 06/19/18 05:58 06/19/18 05:58 Labs: Laboratory Results - last 24 hr 06/18/18 06/18/18 06/18/18 19:10 19:10 21:50 CBC w Diff Auto diff final WBC 9.3 RBC 5.16 Hgb 14.3 Hct 43.7 MCV 84.7 MCH 27.7 MCHC 32.7 RDW 19.6 H Plt Count 293 MPV 10.4 Neut % (Auto) 62.0 Lymph % (Auto) 26.0 [place] % (Auto) 10.3 H Eos % (Auto) 0.6 Baso % (Auto) 1.1 Neut # (Auto) 5.7 Lymph # (Auto) 2.4 [place] # (Auto) 1.0 H Eos # (Auto) 0.1 Baso # (Auto) 0.1 WBC Differential . Differential Comment . Sodium 159 H* Potassium 4.3 Chloride 124 H Carbon Dioxide 19.5 L Anion Gap 16 H BUN 105 H Creatinine 2.80 H Estimated GFR 21 L Random Glucose 120 H Lactic Acid 2.4 H Calcium 9.5 Phosphorus 5.8 H Magnesium 2.8 H Total Bilirubin 1.0 AST 46 H ALT 35 Alkaline Phosphatase 125 H Troponin I 0.12 H Total Protein 8.5 H Albumin 2.7 L TSH 1.920 Urine Color Urine Clarity Urine pH Ur Specific [place] Urine Protein Urine Glucose (UA) Urine Ketones Urine Occult Blood Urine Nitrate Urine Bilirubin Urine Ictotest Urine Urobilinogen Ur Leukocyte Esterase Urine RBC Urine WBC Ur Squamous Epith Cells Micro UA Comment Ur Microscopic Review Urine Culture Comments 06/19/18 06/19/18 06/19/18 00:20 05:58 05:58 CBC w Diff Auto diff final WBC 7.5 RBC 4.37 L Hgb 12.2 L D Hct 37.1 L MCV 84.8 MCH 27.9 MCHC 32.9 RDW 19.9 H Plt Count 223 MPV 9.1 Neut % (Auto) 68.0 Lymph % (Auto) 21.7 [place] % (Auto) 8.4 H Eos % (Auto) 1.1 Baso % (Auto) 0.8 Neut # (Auto) 5.1 Lymph # (Auto) 1.6 [place] # (Auto) 0.6 Eos # (Auto) 0.1 Baso # (Auto) 0.1 WBC Differential . Differential Comment . Sodium 160 H* Potassium 3.6 Chloride 127 H Carbon Dioxide 23.6 Anion Gap 9 BUN 96 H Creatinine 2.10 H Estimated GFR 30 L Random Glucose 112 H Lactic Acid Calcium 8.4 L D Phosphorus Magnesium Total Bilirubin 0.8 AST 43 H ALT 31 Alkaline Phosphatase 100 Troponin I Total Protein 7.1 D Albumin 2.3 L TSH Urine Color Fannie H Urine Clarity Clear Urine pH 5.0 Ur Specific [place] Greater/equal 1.030 Urine Protein Trace Urine Glucose (UA) Negative Urine Ketones Negative Urine Occult Blood Negative Urine Nitrate Negative Urine Bilirubin Negative Urine Ictotest Negative Urine Urobilinogen 0.2 Ur Leukocyte Esterase Negative Urine RBC 0-3 Urine WBC 0-5 Ur Squamous Epith Cells 0-5 Micro UA Comment Culture not ind Ur Microscopic Review Microscopic reviewed Urine Culture Comments Culture not ind 06/19/18 05:58 CBC w Diff WBC RBC Hgb Hct MCV MCH MCHC RDW Plt Count MPV Neut % (Auto) Lymph % (Auto) [place] % (Auto) Eos % (Auto) Baso % (Auto) Neut # (Auto) Lymph # (Auto) [place] # (Auto) Eos # (Auto) Baso # (Auto) WBC Differential Differential Comment Sodium Potassium Chloride Carbon Dioxide Anion Gap BUN Creatinine Estimated GFR Random Glucose Lactic Acid Calcium Phosphorus Magnesium Total Bilirubin AST ALT Alkaline Phosphatase Troponin I 0.24 H Total Protein Albumin TSH Urine Color Urine Clarity Urine pH Ur Specific [place] Urine Protein Urine Glucose (UA) Urine Ketones Urine Occult Blood Urine Nitrate Urine Bilirubin Urine Ictotest Urine Urobilinogen Ur Leukocyte Esterase Urine RBC Urine WBC Ur Squamous Epith Cells Micro UA Comment Ur Microscopic Review Urine Culture Comments - Imaging Impressions Chest X-Ray 06/18/18 20:21 CONCLUSION: 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 Caprini VTE Risk Assessment Caprini VTE Risk Assessment: Moderate/High Risk (score >= 2) Caprini Risk Assessment Model: Point Value = 1 Point Value = 2 Point Value = 3 Point Value = 5 Age 41-60 Minor surgery BMI > 25 kg/m2 Swollen legs Varicose veins or History of unexplained or recurrent spontaneous Oral contraceptives or hormone replacement Sepsis (< 1 month) Serious lung disease, including pneumonia (< 1 month) Abnormal pulmonary function Acute myocardial infarction Congestive heart failure (< 1 month) History of inflammatory bowel disease Medical patient at bed rest Age 61-74 Arthroscopic surgery Major open surgery (> 45 min) Laparoscopic surgery (> 45 min) Malignancy Confined to bed (> 72 hours) Immobilizing plaster cast Central venous access Age >= 75 History of VTE Family history of VTE Factor V Leiden Prothrombin 29010A Lupus anticoagulant Anticardiolipin antibodies Elevated serum homocysteine Heparin-induced thrombocytopenia Other congenital or acquired thrombophilia Stroke (< 1 month) Elective arthroplasty Hip, pelvis, or leg fracture Acute spinal cord injury (< 1 month) Prophylaxis Regimen: Total Risk Factor Score Risk Level Prophylaxis Regimen 0-1 Low Early ambulation 2 Moderate Order ONE of the following: *Sequential Compression Device (SCD) *Heparin 5000 units SQ BID 3-4 Higher Order ONE of the following medications: *Heparin 5000 units SQ TID *Enoxaparin/Lovenox 40 mg SQ daily (WT < 150 kg, CrCl > 30 mL/min) *Enoxaparin/Lovenox 30 mg SQ daily (WT < 150 kg, CrCl > 10-29 mL/min) *Enoxaparin/Lovenox 30 mg SQ BID (WT < 150 kg, CrCl > 30 mL/min) AND/OR *Sequential Compression Device (SCD) 5 or more Highest Order ONE of the following medications: *Heparin 5000 units SQ TID (Preferred with Epidurals) *Enoxaparin/Lovenox 40 mg SQ daily (WT < 150 kg, CrCl > 30 mL/min) *Enoxaparin/Lovenox 30 mg SQ daily (WT < 150 kg, CrCl > 10-29 mL/min) *Enoxaparin/Lovenox 30 mg SQ BID (WT < 150 kg, CrCl > 30 mL/min) AND *Sequential Compression Device (SCD) Assessment and Plan - Assessment (1) Adult failure to thrive Code(s): R62.7 - Adult failure to thrive Status: Acute (2) Malnutrition Code(s): E46 - Unspecified protein-calorie malnutrition Status: Acute (3) Dysphagia Code(s): R13.10 - Dysphagia, unspecified Status: Acute - Plan Acute renal failure -secondary to dehydration, malnutrition, poor p.o. intake, medication -Continue IV fluid -Monitor renal function -Avoid nephrotoxins Hypernatremia -Secondary to dehydration -Patient currently on D5 half-normal saline -Monitor sodium level Failure to thrive, malnutrition -Secondary to poor p.o. intake, oropharyngeal dysphagia -Reviewed modified barium swallow results and speech therapy request from last admission. -Patient does not want to continue with pured diet or continue thickened liquids. He states that he does not like it so he has not been eating or drinking -Discussed with him the need for PEG tube for nutritional support. Patient states that he wants to be able to eat food. He is hoping that they can do some form of bypass from his mouth to his stomach so he could actually eat. -GI consultation has been requested for nutritional support and PEG tube placement Profound weakness, cachexia from malnourishment -Physical therapy evaluation -manager basketball consult for possible rehab placement Hypertension, hyper lipidemia, coronary artery disease -Blood pressure appear to be stable at this time, resume medications once patient clinically improved -Patient does have a equivocal troponin elevation, review of records does indicate that patient has persistent troponin elevation since April. Patient is asymptomatic. Denies any chest pain, shortness of breath, nausea, vomiting, diaphoresis. Review of EKGs do not show any acute changes -Likely worsened secondary to acute renal failure -Continue monitor cardiac enzymes DVT prevention -Sequential compression devices (2) Malnutrition Qualifiers: Malnutrition type: protein-calorie malnutrition Protein-calorie malnutrition severity: moderate Qualified Code(s): E44.0 - Moderate protein-calorie malnutrition (3) Dysphagia Qualifiers: Dysphagia type: unspecified Qualified Code(s): R13.10 - Dysphagia, unspecified
[2018-06-19 17:49] LABS: Calcium 8.5 mg/dL (8.5-10.1); Carbon Dioxide 18.9 meq/L (21.0-32.0); Potassium 3.8 meq/L (3.5-5.1)
[2018-06-20 00:32] LABS: Calcium 8.2 mg/dL (8.5-10.1); Carbon Dioxide 22.9 meq/L (21.0-32.0); Potassium 3.6 meq/L (3.5-5.1)
[2018-06-20] MEDS: KCL 20 mEq/D5W/NaCl 0.45% Inj 1,000 ML IV.CONT SCH (04:56)
[2018-06-20 06:19] LABS: Baso % (Auto) 0.7 % (0.0-2.0); Eos # (Auto) 0.1 th/mm3 (0.0-0.4); Eos % (Auto) 0.8 % (0.0-4.0); Hematocrit 34.5 % (39.0-51.0); Hemoglobin 11.5 gm/dL (13.0-17.0); Lymph # (Auto) 1.5 th/mm3 (1.0-4.8); Mean Corpuscular HGB Conc 33.4 % (32.0-36.0); Mean Corpuscular Hemoglobin 28.4 pg (27.0-34.0); Mean Corpuscular Volume 84.9 fL (80.0-100.0); Mean Platelet Volume 9.7 fL (7.0-11.0); Mono # (Auto) 0.6 th/mm3 (0.0-0.9); Mono % (Auto) 8.5 % (0.0-8.0); Neut # (Auto) 4.5 th/mm3 (1.8-7.7); Platelet Count 206 th/mm3 (150-450); Red Blood Count 4.06 mil/mm3 (4.50-5.90); Red Cell Distribution Width 19.8 % (11.6-17.2); White Blood Count 6.7 th/mm3 (4.0-11.0)
[2018-06-20 06:42] LABS: Calcium 8.2 mg/dL (8.5-10.1); Carbon Dioxide 23.1 meq/L (21.0-32.0); Potassium 3.6 meq/L (3.5-5.1)
--- NOTE | 2018-06-20 08:20 | P.PNIM ---
Subjective Interval history: 87-year-old male who was seen and examined today for follow-up on failure to thrive, severe malnutrition, dysphagia. Patient states that he is waiting around for GI to come talk to home. Denies any new complaints. Vital signs are stable. Patient remains afebrile. Physical Exam Vital signs: Vital Signs 06/19/18 09:00 06/19/18 12:00 06/19/18 16:00 Temperature 97.8 F Pulse Rate 80 79 85 Respiratory Rate 20 Blood Pressure Pulse Oximetry 97 06/19/18 19:55 06/19/18 20:00 06/20/18 00:00 Temperature 97 F L 96.8 F L Pulse Rate 84 84 76 Respiratory Rate 18 18 Blood Pressure 106/61 115/57 L Pulse Oximetry 97 98 06/20/18 04:00 06/20/18 04:02 Temperature 97.1 F L Pulse Rate 81 76 Respiratory Rate 18 Blood Pressure 113/59 L Pulse Oximetry 93 L Intake & Output 06/19/18 06/20/18 06/20/18 18:59 06:59 18:59 Intake Total 2099 / 2099 1000 / 1000 Output Total 150 / 150 630 / 630 Balance 1950 / 1949 370 / 370 Weight 62.4 kg Intake: IV 1999 1000 / 1000 D5W/1/2NS + KCL 20 mEq Inj 1, 1999 1000 / 1000 000 ML @ 100 mls/hr IV.CONT . Q10H [facility] Rx#:[id number] Oral 100 / 100 Output: Urine 150 / 150 630 / 630 Narrative: GENERAL: Well-developed, cachectic and malnourished, in no acute distress. alert and orientated HEENT: Head is normocephalic without any lesions or masses noted. Facial features are symmetric. Eyes: Extraocular muscles are intact. Conjunctivae were clear. Patient with obvious malfunctioning dentures, patient cannot even speak without them floating around in his mouth. Patient is very hard of hearing NECK: Supple without any masses. Trachea midline no deviation. No JVD, no bruits are appreciated CARDIAC: Regular rhythm, regular rate. S1/S2 are heard. 2/6 ejection murmur, no gallops or rubs. LUNGS: Clear to auscultation bilaterally. No wheeze, rhonchi or rales. No use of accessory muscles on inspiration or expiration. ABDOMEN: Soft, nontender. Nondistended. Bowel sounds heard in all 4 quadrants. No organomegaly or masses. Negative rebound, negative guarding EXTREMITIES: No edema, pulses are equal bilaterally. No cyanosis or clubbing NEUROLOGY: Mood and affect appear appropriate. Cranial nerves II through XII grossly intact. Moving all extremities, speech is clear. Patient with significant muscle atrophy Results - Labs CBC & Chem 7: 06/20/18 04:55 06/20/18 04:55 Laboratory Results - last 24 hr 06/19/18 06/19/18 06/19/18 11:50 11:50 17:25 CBC w Diff WBC RBC Hgb Hct MCV MCH MCHC RDW Plt Count MPV Neut % (Auto) Lymph % (Auto) [place] % (Auto) Eos % (Auto) Baso % (Auto) Neut # (Auto) Lymph # (Auto) [place] # (Auto) Eos # (Auto) Baso # (Auto) WBC Differential Differential Comment Sodium 159 H* 156 H* Potassium 3.6 3.8 Chloride 127 H 127 H Carbon Dioxide 22.2 18.9 L Anion Gap 10 10 BUN 91 H 79 H Creatinine 1.80 H 1.80 H Estimated GFR 36 L 36 L Random Glucose 110 H 140 H Calcium 8.4 L 8.5 Troponin I 0.21 H 06/19/18 06/20/18 06/20/18 23:50 04:55 04:55 CBC w Diff Auto diff final WBC 6.7 RBC 4.06 L Hgb 11.5 L Hct 34.5 L MCV 84.9 MCH 28.4 MCHC 33.4 RDW 19.8 H Plt Count 206 MPV 9.7 Neut % (Auto) 68.0 Lymph % (Auto) 22.0 [place] % (Auto) 8.5 H Eos % (Auto) 0.8 Baso % (Auto) 0.7 Neut # (Auto) 4.5 Lymph # (Auto) 1.5 [place] # (Auto) 0.6 Eos # (Auto) 0.1 Baso # (Auto) 0.0 WBC Differential . Differential Comment . Sodium 158 H* 158 H* Potassium 3.6 3.6 Chloride 128 H 127 H Carbon Dioxide 22.9 23.1 Anion Gap 7 8 BUN 69 H 63 H Creatinine 1.60 H 1.50 H Estimated GFR 41 L 44 L Random Glucose 109 H 88 Calcium 8.2 L 8.2 L Troponin I Assessment and Plan - Assessment (1) Adult failure to thrive Code(s): R62.7 - Adult failure to thrive Status: Acute (2) Malnutrition Code(s): E46 - Unspecified protein-calorie malnutrition Status: Acute (3) Dysphagia Code(s): R13.10 - Dysphagia, unspecified Status: Acute - Plan Acute renal failure, improving -secondary to dehydration, malnutrition, poor p.o. intake, medication -Continue IV fluid -Monitor renal function -Avoid nephrotoxins Hypernatremia -Secondary to dehydration -Mild improvement, will change to D5W -Monitor sodium level Failure to thrive, malnutrition -Secondary to poor p.o. intake, oropharyngeal dysphagia -Reviewed modified barium swallow results and speech therapy request from last admission. -Patient does not want to continue with pured diet or continue thickened liquids. He states that he does not like it so he has not been eating or drinking -Discussed with him the need for PEG tube for nutritional support. Patient states that he wants to be able to eat food. He is hoping that they can do some form of bypass from his mouth to his stomach so he could actually eat. -GI consultation has been requested for nutritional support and PEG tube placement -Speech therapy continues to recommend pured diet with honey thickened liquids Profound weakness, cachexia from malnourishment -Physical therapy evaluation -employee development manager consult for possible rehab placement Hypertension, hyper lipidemia, coronary artery disease -Blood pressure appear to be stable at this time, resume medications once patient clinically improved -Patient does have a equivocal troponin elevation which has remained stable, review of records does indicate that patient has persistent troponin elevation since April. Patient is asymptomatic. Denies any chest pain, shortness of breath, nausea, vomiting, diaphoresis. Review of EKGs do not show any acute changes -Likely worsened secondary to acute renal failure -Continue monitor cardiac enzymes DVT prevention -Sequential compression devices Discharge Planning: Discharge planning likely to nursing home facility after patient has had discussion by GI for insertion of feeding tube and procedure if patient is willing (2) Malnutrition Qualifiers: Malnutrition type: protein-calorie malnutrition Protein-calorie malnutrition severity: moderate Qualified Code(s): E44.0 - Moderate protein-calorie malnutrition (3) Dysphagia Qualifiers: Dysphagia type: unspecified Qualified Code(s): R13.10 - Dysphagia, unspecified
[2018-06-20] MEDS ORDERED: ceFAZolin 1 GM Premix Inj 1 GM/50 ML PIGGYBACK IV.SIG SCH (14:00)
--- NOTE | 2018-06-20 14:24 | MB ---
cc: Jamel Vázquez MD, Jon C MD DATE: 06/20/2018 CONSULTING PHYSICIAN: Jamel Vázquez MD HISTORY OF PRESENT ILLNESS: The patient is an 87-year-old white male known to me by history. He was admitted to the hospital with failure to thrive. He has a documented solid aspiration with pneumonia due to oropharyngeal dysphagia. He has hypertension, coronary artery disease, hyperlipidemia, respiratory failure by history. He tells me he has lost well over 50 pounds due to dysphagia. He is having a tough time tolerating his thickened fluids. He has had no pain or nausea or vomiting. PAST MEDICAL HISTORY: As mentioned. Additionally, balance difficulties, coronary artery disease, essential hypertension, gastroesophageal reflux, gout, atrial fibrillation by history, cataract surgery, hyperlipidemia, hypothyroidism, osteoarthritis, restless leg syndrome. PAST SURGICAL HISTORY: He has had a cholecystectomy, coronary artery bypass graft with stenting and tonsillectomy. MEDICATIONS: 1. Acetaminophen. 2. Dulcolax. 3. Potassium. 4. Lactulose. 5. Zofran. 6. Senokot. ALLERGIES: PEANUT OIL AND PEANUTS. SOCIAL HISTORY: No tobacco or alcohol use. FAMILY HISTORY: Unremarkable, except for coronary artery disease. REVIEW OF SYSTEMS: He tells me he has had no recent headaches, no difficulty with vision, though he does have hearing aids for hearing. He has had no chest pains or palpitations. He denies respiratory difficulties recently. He has had no abdominal pain. He has had no urinary symptoms. He has had no melena or hematochezia. He knows of no history of liver disease or thyroid disease or pancreatic disease or diabetes. He has lost quite a bit of weight, as mentioned. PHYSICAL EXAMINATION: VITAL SIGNS: Temperature is 97.4, pulse 76, blood pressure 120/58. GENERAL: He is quite thin. He is alert. He is pale appearing. HEENT: Anicteric. Extraocular motions are intact. He responds appropriately to all questions. He is very cognizant of what is going on. LYMPHATICS: I appreciate the consultation no submandibular, cervical, supraclavicular, axillary or epitrochlear adenopathy. LUNGS: Relatively clear. HEART: Regular rate and rhythm with a 2/6 to 3/6 systolic murmur. ABDOMEN: Good bowel sounds with no definite bruit. The abdomen is soft and no tenderness is appreciated. I noticed no masses or hepatosplenomegaly. EXTREMITIES: No pedal edema, Dupuytren contractures or palmar erythema. LABORATORY STUDIES: Today, white count 6.7, hemoglobin 11.5, MCV 84.9, platelets 206. Sodium 158, potassium 3.6, BUN 63, creatinine 1.5. RADIOGRAPHIC STUDIES: Chest x-ray from 06/18/2018 revealed evidence of prior sternotomy. There is interstitial disease seen at the bases of the lungs. No effusion noted. Normal heart size. IMPRESSION: Silent aspiration with oropharyngeal dysphagia with significant weight loss and resulting malnutrition. The patient is anxious to have a percutaneous endoscopic gastrostomy tube placed. We reviewed the procedure including potential risks of medication reaction, bleeding, perforation and a small chance of missing a lesion. He agrees to proceed with this plan. MD RHONDA Gan/cassius , 02:06 PM , 02:15 PM MTDNaomi
[2018-06-20] MEDS: Potassium Chloride Inj 20 MEQ in Dextrose 5% in Water Inj 1,000 ML IV.SIG SCH ×2 (16:25)
--- NOTE | 2018-06-20 18:52 | ECG ---
Date Performed: 06/19/2018 Time Performed: 12:48:20 PTAGE: 87 years EKG: Sinus rhythm MODERATE INTRAVENTRICULAR CONDUCTION DELAY MODERATE T-WAVE ABNORMALITY, CONSIDER LATERAL ISCHEMIA AB NORMAL ECG PREVIOUS TRACING : 06/19/2018 07.13 Since the previous tracing, no significant change noted DOCTOR: Pedro Cleveland Interpretating Date/Time 06/20/2018 18:51:15
[2018-06-20] MEDS ORDERED: Chlorhexidine Gluconate 2% 1 Pack (2 Cloths) TOPICAL ONE (19:33)
[2018-06-20] MEDS ORDERED: Metoprolol Tartrate 25 MG Tablet PO ONE (19:33)
[2018-06-20] MEDS ORDERED: Sodium Chlor 0.9% Inj 500 ML IV.SIG SCH (20:00)
--- NOTE | 2018-06-20 21:08 | MR ---
cc: Jamel Vázquez MD,Taylor Urbano MD DATE: 06/20/2018 PROCEDURE: Esophagogastroduodenoscopy with insertion of a percutaneous endoscopic gastrostomy tube performed by Dr. Jamel Vázquez. INDICATIONS FOR PROCEDURE: Oropharyngeal dysphagia with aspiration documented radiographically. He has lost quite a bit of weight. MEDICATIONS: Ancef 1 gram IV prophylactically. SEDATION: Per anesthesiology and 1% Xylocaine subcutaneously. INSTRUMENTS: The Pentax video gastroscope and the Dynamic Organic Light 20-Maltese percutaneous endoscopic gastrostomy tube kit. DESCRIPTION OF PROCEDURE: After obtaining written informed consent, the patient was placed in the prone position with the head of bed slightly raised. Adequate sedation was administered. The video gastroscope was passed into the mouth and hypopharynx. Mucosal surfaces were dry, and some dried mucus was present. The esophagus appeared normal along its entire extent. Some punctate erosions were noted on some superficial gastric polyps. The pylorus was a bit stenotic. Direct transillumination and digital palpation confirmed an appropriate location to insert the gastrostomy tube. The abdominal wall was prepped and draped in a sterile manner. Then, 1% Xylocaine was used to anesthetize the skin down to the gastric mucosa. A 1 cm vertical incision was made in the skin with a #11 blade. Through this incision, the needle and catheter were passed into the stomach under direct inspection endoscopically. Guidewire was passed through the catheter and the wire was snared. The endoscope, snare, and guidewire were withdrawn per os. Attached to the guidewire outside the oropharynx was the gastrostomy tube. The apparatus was lubricated and pulled from the abdominal aspect, so that the tube passed through the mouth, esophagus, stomach, and abdominal wall, and the bumper of the tube lodged against the anterior gastric wall with the 2 cm juwan showing at the skin surface. Triple antibiotic ointment dressing was applied, and the plastic securing devices were used to secure the tube in place. The procedure was thus terminated. He tolerated it well, and there were no apparent complications. Upon completion, he was sedated, and had normal, stable vital signs. IMPRESSION: 1. Dry mucous membranes in the oropharynx and hypopharynx with some dry mucus. 2. Normal esophageal mucosa. 3. Superficial erosions on some superficial gastric polyps. 4. Stenotic pylorus. 5. Successful insertion of a 20-Maltese percutaneous endoscopic gastrostomy tube. DISPOSITION: 1. The patient is to be observed per routine postprocedure protocol, and may return to his room. 2. Tube feeding orders and stoma care orders have been written. 3. H2 shaquille would be appropriate long-term to help with gastric erosions and to prevent further mucosal injury and bleeding. The endoscopic software did not allow for pictures to be taken before this examination, as there was a malfunction in that apparatus. MD RHONDA Gan/checo , 06:35 PM , 06:45 PM
[2018-06-20] MEDS ORDERED: Morphine Sulfate Inj 2 MG/ML Vial IV.PUSH PRN (21:50)
[2018-06-21 06:15] LABS: Potassium 3.5 meq/L (3.5-5.1)
[2018-06-21 06:18] LABS: Calcium 8.1 mg/dL (8.5-10.1)
[2018-06-21 06:19] LABS: Carbon Dioxide 20.4 meq/L (21.0-32.0)
[2018-06-21] MEDS ORDERED: dilTIAZem CD 120 MG Capsule PO SCH (09:00)
--- NOTE | 2018-06-21 09:20 | P.DS ---
Date of admission: 06/18/18 21:39 Primary care physician: Jem Kaufman MD Anticipated date of discharge: 06/21/18 Brief History from admission: 87-year-old male with known history of silent aspiration, dysphagia, hypertension, coronary artery disease, hyperlipidemia, history of respiratory failure, history of aspiration pneumonia who presented to hospital because of profound weakness, malnutrition. Patient has had recent admission over the last couple months where he was diagnosed with significant dysphagia with modified barium swallow indicating that he has silent aspiration. Patient was continued on pured diet, thickened liquids. Patient is adamant that he does not like the consistency of the food, pured diet and he refuses to eat or drink it. Because of that he has had 12 kg weight loss in 1 month. He has had significant profound weakness where he cannot even stand on his own. Because of that he was brought into the hospital for evaluation. Patient was found to have acute kidney injury, severe dehydration, hypernatremia. The patient indicates that he came to hospital in order to get bypass feeding to where he could still eat. I did discuss with him that since he does not want to or tolerate the pured diet/thickened liquids then a PEG tube would be appropriate for nutritional support. Patient is not completely in agreement with that he wants to eat and swallow, however he just does not like the food and liquids that he has to do at this time. I notified him that the pearl peller will be and speak to him and he can discuss other possible ways to supply nutrition. Patient update on day of discharge: 87-year-old male who was seen and examined today for follow-up on failure to thrive, severe malnutrition, dysphagia. Doing much improved. No acute complaints overnight. PEG tube placed, TF started. GI seen patient today and signed off. Afebrile. VSS. Awaiting auth from insurance to rehab. DS: Diagnosis - Discharge Diagnosis (1) Adult failure to thrive Status: Acute (2) Malnutrition Status: Acute (3) Dysphagia Status: Acute DS: Summary Hospital Course: This is an 87-year-old male patient with acute renal failure on presentation that improved and suspected secondary to dehydration, malnutrition, poor p.o. intake, medication. Was given IVF. He also had hypernatremia secondary to dehydration. Improved during hospitalization. He also had failure to thrive, malnutrition secondary to poor p.o. intake, oropharyngeal dysphagia. Patient did not want to continue with pured diet or continue thickened liquids. He states that he does not like it so he has not been eating or drinking. GI consulted and PEG tube placed, TF started. ST has seen patient. Also has profound weakness, cachexia from malnourishment, PT following. DC to rehab when authorization from insurance passed. Also has a history of hypertension, hyperlipidemia, coronary artery disease, blood pressure stable, resume Patient does have a equivocal troponin elevation which has remained stable, review of records does indicate that patient has persistent troponin elevation since April. Patient is asymptomatic. Denies any chest pain, shortness of breath, nausea, vomiting, diaphoresis. Review of EKGs do not show any acute changes. Stable on DC. DC to rehab. Follow BMP on dc. PCP to follow. RX as written. - Time Spent with Patient Total time spent providing and/or coordinating discharge services: Greater than 30 minutes - Quality: VTE Deep Vein Thrombosis/Pulmonary Embolism Present on Admission: No Exam Vital signs: Vital Signs 06/20/18 12:00 06/20/18 14:45 06/20/18 16:00 Temperature 97.4 F L 97.4 F L 97.5 F L Pulse Rate 76 76 79 Respiratory Rate 20 16 20 Blood Pressure 120/58 L 120/58 L 101/57 L Pulse Oximetry 95 96 06/20/18 18:45 06/20/18 18:50 06/20/18 19:00 Temperature Pulse Rate 86 93 H 83 Respiratory Rate 16 16 16 Blood Pressure 84/53 L 99/52 L 89/50 L Pulse Oximetry 94 L 94 L 96 06/20/18 19:15 06/20/18 20:00 06/20/18 22:00 Temperature 97.1 F L Pulse Rate 76 81 81 Respiratory Rate 16 18 Blood Pressure 99/60 L 117/64 Pulse Oximetry 96 97 06/21/18 00:00 06/21/18 02:00 06/21/18 04:00 Temperature 97.4 F L 97.0 F L Pulse Rate 85 81 80 Respiratory Rate 18 18 Blood Pressure 107/58 L 107/52 L Pulse Oximetry 94 L 95 06/21/18 06:00 06/21/18 08:48 Temperature 97.0 F L Pulse Rate 85 85 Respiratory Rate 20 Blood Pressure 103/53 L Pulse Oximetry 96 Intake & Output 06/20/18 06/21/18 06/21/18 18:59 06:59 18:59 Intake Total 1950 / 1950 Output Total 850 / 850 450 / 450 Balance 1100 / 1100 -450 / -450 Weight 62.4 kg Intake: IV 1050 / 1050 D5W/1/2NS + KCL 20 mEq Inj 1, 1000 / 1000 000 ML @ 100 mls/hr IV.CONT . Q10H EMILIA Rx#:[id number] Ancef 1 GM Premix Inj 1 gm In 50 / 50 50 ml @ 100 mls/hr IV.SIG ONCE EMILIA Rx#:[id number] Oral 0 / 0 Anesthesia Amount 900 / 900 Output: Urine 850 / 850 450 / 450 Other: # Voids 0 # Bowel Movements 3 Narrative: GENERAL: Well-developed, thin patient in NAD. SKIN: Warm and dry. No rash. HEAD: Normocephalic. Atraumatic. EYES: Pupils equal and round. No scleral icterus. No injection or drainage. ENT: No nasal bleeding or discharge. Mucous membranes pink and moist. NECK: Supple. Trachea midline. CARDIOVASCULAR: Regular rate and rhythm. S1, S2 noted. No murmur appreciated. RESPIRATORY: No accessory muscle use. Clear to auscultation. Breath sounds equal bilaterally. GASTROINTESTINAL: Abdomen soft, non-tender, nondistended. Normoactive bowel sounds x4. PEG tube in place site clean dry and intact. No erythema no drainage. Tube feeding. MUSCULOSKELETAL: No obvious deformities. Extremities without clubbing, cyanosis , or edema. NEUROLOGICAL: Awake and alert. No obvious cranial nerve deficits. Motor grossly within normal limits. 5/5 muscle strength in bilateral upper and lower extremities. Normal speech. PSYCHIATRIC: Appropriate mood and affect; insight and judgment normal. Results Procedures completed during hospitalization: See above. 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 Discharge Plan - Discharge Disposition Patient Disposition: Discharge to SNF - Discharge Condition Condition: Fair - Discharge Order Discharge Orders: Discharge Order (Routine); Ordered 06/21/18 Ordered By: Brigtite Talbot - Discharge Details Anticipated Discharge Date: 06/21/18 - Physicians Team Primary Care Provider: Jem Kaufman Attending Provider: Robe Garrido Other Providers: Katie Rucker MD ; Surya London ; Jamel Vázquez MD ; Francisco Dye [facility]
[2018-06-21] MEDS ORDERED: predniSONE 20 MG Tablet PO SCH (10:00)
[2018-06-21] MEDS ORDERED: Allopurinol 100 MG Tablet PO SCH (10:00)
[2018-06-21] MEDS ORDERED: Pantoprazole Sodium 20 MG DR Tablet PO SCH (10:00)
[2018-06-21] MEDS: Potassium Chloride Inj 20 MEQ in Dextrose 5% in Water Inj 1,000 ML IV.SIG SCH ×2 (10:10)
--- NOTE | 2018-06-21 12:14 | P.DIET ---
Nutritional Evaluation Type of nutrition evaluation: initial Nutrition consult regarding: Tube Feeding, Diet Evaluation Nutrition screening: Weight Loss > 10 lbs, [facility] [place]19[place]18 [facility] Malnutrition Subjective Barriers to Nutrition: Swallowing problem, Dentures (loose-poorly fitting dentures) Subjective Comments: Pt says he has had Boost in the past but doesnt want it thickened. Pt agrees to try Mighty Shakes and Ensure Enlive and was informed they will be thickened- "Well it cant hurt but I might not drink it". Objective - Diagnosis MATILDE - Indications of Malnutrition Characteristics: Weight loss, Insufficient energy intake, Fat loss, Muscle loss , Diminshed functional status - Objective % IBW: 75 Body Weight Used for Calculations: Actual (58.7 kg) Energy Needs - Lower Range (kCal/kg): 35 Energy Needs - Upper Range (kCal/kg): 40 Lower Limit kCal/kg (kCals): 2,055 Upper Limit kCal/kg (kCals): 2,348 Lower Limit Protein Factor (Grams per Kg): 1.2 Upper Limit Protein Factor (Grams per Kg): 1.6 Lower Protein Needs (Protein): 70 Upper Protein Needs (Protein): 94 Fluid Factor (ml/kg): 35 Estimated Fluid Needs (ml): 2,055 Dietitian Reviewed in 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: Current diet, Curent medications, Intake & Output, Labs, Medical history, Tube feeding Diet Order: TF'ing w/ Ensure @ 35 Speech Therapy Recommendations: Yes (06/20 Pureed and honey thickened liquids) Objective Comments: PMH includes: hypothyroidism, silent aspiration, dysphagia, HTN, CAD, HLD Labs include: Na 153, BUN 39, Creatinine 1.3, estGFR 52, Glucose 110 LBM 06/20/18 Assessment Assessment: Pt is at high nutrition risk r/t failure to thrive w/dysphagia, recent wt loss and severe malnutrition. Pt does not care for pureed solids and thickened liquids and has decided for a feeding tube and is s/p G-tube placement . Rec TF'ing w/Vital 1.5 @ 35ml/hr, increase 10ml Q 4-hr, as tolerated to goal rate 65ml/hr x 22-hr(pt on synthroid) to offer 2145 kcal, 97g protein and 1093ml free water. For bolus feedings, Rec Vital 1.5 w/ 1.5-cans(360ml)@ 8am, 12pm, 4pm and 8pm to offer 2130 kcal, 96g protein and 1086ml free water. Rec free water flush 30ml before and after each bolus feeding and 180ml free water flush Q 4-hr to meet fluid needs. Send Mighty Shakes TID(= 300 kcal and 9g protein per serving) and Ensure Enlive TID(= 350 kcal and 20g protein per serving). Labs reviewed. Dietitian following. Recommendations: 1. Rec TF'ing w/Vital 1.5 @ 35ml/hr, increase 10ml Q 4-hr, as tolerated to goal rate 65ml/hr x 22-hr(pt on synthroid) 2. For bolus feedings, Rec Vital 1.5 w/ 1.5-cans(360ml)@ 8am, 12pm, 4pm and 8pm 3. Rec free water flush 30ml before and after each bolus feeding and 180ml free water flush Q 4-hr to meet fluid needs 4. Send Mighty Shakes TID 5. Ensure Enlive TID 6. Dietitian following Dietitian to Monitor: Lab values, Supplement acceptance, Intake & Output, Tube feeding tolerance, Weight change, PO Intake, Swallow recommendations, Medical course
--- NOTE | 2018-06-21 14:50 | P.PNGI ---
Subjective Interval history: Minimal discomfort at stoma; tolerating tube feedings at 35cc/hour. No N/V. Physical Exam Vital signs: Vital Signs 06/20/18 16:00 06/20/18 18:45 06/20/18 18:50 Temperature 97.5 F L Pulse Rate 79 86 93 H Respiratory Rate 20 16 16 Blood Pressure 101/57 L 84/53 L 99/52 L Pulse Oximetry 96 94 L 94 L 06/20/18 19:00 06/20/18 19:15 06/20/18 20:00 Temperature 97.1 F L Pulse Rate 83 76 81 Respiratory Rate 16 16 18 Blood Pressure 89/50 L 99/60 L 117/64 Pulse Oximetry 96 96 97 06/20/18 22:00 06/21/18 00:00 06/21/18 02:00 Temperature 97.4 F L Pulse Rate 81 85 81 Respiratory Rate 18 Blood Pressure 107/58 L Pulse Oximetry 94 L 06/21/18 04:00 06/21/18 06:00 06/21/18 08:48 Temperature 97.0 F L 97.0 F L Pulse Rate 80 85 85 Respiratory Rate 18 20 Blood Pressure 107/52 L 103/53 L Pulse Oximetry 95 96 06/21/18 10:28 Temperature Pulse Rate 67 Respiratory Rate 20 Blood Pressure Pulse Oximetry 96 Intake & Output 06/20/18 06/21/18 06/21/18 18:59 06:59 18:59 Intake Total 1950 / 1950 1010 / 1010 Output Total 850 / 850 450 / 450 250 / 250 Balance 1100 / 1100 -450 / -450 760 / 760 Weight 62.4 kg Intake: IV 1050 / 1050 1010 / 1010 D5W/1/2NS + KCL 20 mEq Inj 1, 1000 / 1000 000 ML @ 100 mls/hr IV.CONT . Q10H EMILIA Rx#:[id number] KCl Inj 20 MEQ In D5W Inj 1,000 1010 / 1010 ML @ 42 mls/hr IV.SIG .Q24H EMILIA Rx#:[id number] Ancef 1 GM Premix Inj 1 gm In 50 / 50 50 ml @ 100 mls/hr IV.SIG ONCE EMILIA Rx#:[id number] Oral 0 / 0 Anesthesia Amount 900 / 900 Output: Urine 850 / 850 450 / 450 250 / 250 Other: # Voids 0 Date of Last Bowel Movement 06/20/18 # Bowel Movements 3 - Constitutional no acute distress - Routine Respiratory Exam Comments: Stoma looks good, though there is mild tenderness to palpation. Good bowel sounds. Results - Labs CBC & Chem 7: 06/20/18 04:55 06/21/18 05:00 Laboratory Results - last 24 hr 06/21/18 05:00 Sodium 153 H Potassium 3.5 Chloride 122 H Carbon Dioxide 20.4 L Anion Gap 11 BUN 39 H Creatinine 1.30 Estimated GFR 52 L Random Glucose 110 H Calcium 8.1 L Assessment and Plan - Plan Oropharyngeal dysphagia with silent aspiration. S/P PEG tube insertion. Tube feeding rate may be increased gradually, or the feedings may be administered as bolus feedings. After bolus feedings and medication administration, the tube is to be flushed with water. The patient and his would like to learn how to use the tube. I'll sign off.
[2018-06-22] MEDS ORDERED: FLUTICASONE UMECLIDIN VILANTER INH SCH (09:00)
== END 2018-06-21 18:12 ==
LOC: PHED 18:18 → PHEDA 21:39 → PH3 23:27
PROVIDERS: ADMIT Hospitalist; ATTEND Hospitalist

== ENCOUNTER 2018-06-27 16:28 | Inpatient (IN) ==
[2018-06-27] MEDS ORDERED: MethylPREDNISolone Sod Succinate Inj 125 MG/2 ML Vial IV.PUSH ONE (16:52)
--- NOTE | 2018-06-27 16:55 | ED ---
HPI General Chief complaint: Shortness of Breath/Dyspnea Stated complaint: SOB Time Seen by Provider: 06/27/18 16:51 History of Present Illness HPI narrative: This is an 87-year-old male with history of COPD who is on 2.5 L of oxygen at home. He was sent by [facility] for evaluation. He has had dyspnea for several weeks but it has worsened over the past few days. He was recently diagnosed with bilateral pneumonia. He was sent here today because of a low oxygen saturation. Upon arrival his oxygen saturation was 84%. He complains of dyspnea. He reports a chronic cough. He denies any chest pain, abdominal pain, nausea, vomiting, leg swelling. Symptoms are moderate. Related Data Home Medications Medication Instructions Recorded Confirmed aspirin [Aspir-81] 81 mg FEEDING TUBE DAILY 05/08/18 06/27/18 cholecalciferol (vitamin D3) 1,000 unit FEEDING TUBE DAILY 05/08/18 06/27/18 [Vitamin D3] levothyroxine 25 mcg FEEDING TUBE DAILY 05/08/18 06/27/18 pravastatin 80 mg FEEDING TUBE DAILY 05/08/18 06/27/18 ropinirole 0.5 mg FEEDING TUBE HS 05/08/18 06/27/18 albuterol sulfate 0.63 mg INHALATION Q2H PRN 06/27/18 06/27/18 budesonide-formoterol [Symbicort] 1 puff INHALATION DAILY 06/27/18 06/27/18 diltiazem HCl 120 mg FEEDING TUBE DAILY 06/27/18 06/27/18 ipratropium-albuterol 1 amp NEB Q4H 06/27/18 06/27/18 levofloxacin 750 mg FEEDING TUBE DAILY 06/27/18 06/27/18 magnesium citrate [Citroma] 296 ml FEEDING TUBE DAILY PRN 06/27/18 06/27/18 omeprazole 40 mg DAILY 06/27/18 06/27/18 prednisone 20 mg FEEDING TUBE DIRECTED 06/27/18 06/27/18 Previous Rx's Medication Instructions Recorded albuterol sulfate 2.5 mg NEB Q2HR NEB PRN ml 05/14/18 Allergies Allergy/AdvReac Type Severity Reaction Status Date / Time peanut oil Allergy Severe Diarrhea Verified 06/18/18 18:41 peanut Allergy Intermediate Diarrhea Verified 06/18/18 18:41 Review of Systems ROS: all other systems reviewed are negative PMFSH Social History Social History Substance History: No History of Abuse Second Hand Smoke Exposure: No Smoking Status: Former smoker Tobacco Type: Cigarettes How Often Do You Have a Drink Containing Alcohol: Never Recent Travel in [facility] within the Last 8 Weeks: No Recent Out of Country Travel within the Last 8 Weeks: No Exam Narrative Exam Narrative: GENERAL: Well-developed well-nourished male who is tachypneic on arrival. SKIN: Warm and dry. HEAD: Atraumatic. Normocephalic. EYES: Pupils equal and round. No scleral icterus. No injection or drainage. ENT: No nasal bleeding or discharge. Mucous membranes pink and moist. NECK: Trachea midline. No JVD. CARDIOVASCULAR: Regular rate and rhythm. No murmur appreciated. RESPIRATORY: No accessory muscle use. Crackles at the bases, wheezing bilaterally. GASTROINTESTINAL: Abdomen soft, non-tender, nondistended. Hepatic and splenic margins not palpable. MUSCULOSKELETAL: No obvious deformities. No clubbing. No cyanosis. No edema. NEUROLOGICAL: Awake and alert. No obvious cranial nerve deficits. Motor grossly within normal limits. Normal speech. Course Initial Documented Vital Signs Temperature 99.8 F H 06/27/18 16:45 Pulse Rate 114 H 06/27/18 16:45 Respiratory Rate 36 H 06/27/18 16:45 Blood Pressure 134/61 06/27/18 16:45 Pulse Oximetry 84 L 06/27/18 16:45 Last Documented Vital Signs Temperature 97.9 F 06/29/18 20:00 Pulse Rate 61 06/29/18 23:22 Respiratory Rate 20 06/29/18 23:22 Blood Pressure 106/53 L 06/29/18 20:20 Pulse Oximetry 98 06/29/18 23:22 Medical Decision Making MADHU Attestation MADHU supervised visit: Yes Attestation: I, Dr. Hugo, have reviewed the advance practice practitioner's documentation and am in agreement, met with the patient face to face, made the diagnosis, and the medical decision making was done by me. *My assessment and Findings: Sepsis. Pneumonia. Hypoxemia. MDM Narrative Medical decision making narrative: CBC reveals WBC count of 15.4 with 91% neutrophils.The patient was placed on ECG monitor and pulse oximetry. Twelve- lead EKG ordered. Lab work, chest x-ray, ABG obtained. The patient was placed on a nonrebreather. Blood cultures, lactic acid ordered. Chest x-ray reveals bibasilar airspace disease, vancomycin, cefepime and azithromycin started. ABG on nonrebreather reveals hypoxemia with a PO2 of 59, pH is 7.52, PCO2 is 18, patient was started on BiPAP. Lactic acid is 8.3, IV fluid bolus initiated. At this point time the plan is to admit him to the ICU for further treatment. The patient's and daughter have now arrived at bedside, discussed with him. Medical Screen Exam Complete: Yes Emergency Medical Condition: Yes Differential Diagnosis Differential Diagnosis: Pneumonia, pleural effusions, CHF, COPD exacerbation, spontaneous pneumothorax Lab Data Result diagrams: 06/29/18 03:35 06/29/18 03:35 Lab Results 06/27/18 06/27/18 06/27/18 Range/Units 17:02 17:02 17:02 WBC 15.4 H (4.0-11.0) th/mm3 RBC 3.83 L (4.50-5.90) mil/mm3 Hgb 11.4 L (13.0-17.0) gm/dL Hct 33.2 L (39.0-51.0) % MCV 86.6 (80.0-100.0) fL MCH 29.8 (27.0-34.0) pg MCHC 34.5 (32.0-36.0) % RDW 21.4 H (11.6-17.2) % Plt Count 192 (150-450) th/mm3 MPV 11.0 (7.0-11.0) fL Neut % (Auto) 91.0 H (16.0-70.0) % Lymph % (Auto) 4.2 L (9.0-44.0) % [place] % (Auto) 4.8 (0.0-8.0) % Eos % (Auto) 0.0 (0.0-4.0) % Baso % (Auto) 0.0 (0.0-2.0) % Neut # (Auto) 14.0 H (1.8-7.7) th/mm3 Lymph # (Auto) 0.6 L (1.0-4.8) th/mm3 [place] # (Auto) 0.7 (0.0-0.9) th/mm3 Eos # (Auto) 0.0 (0.0-0.4) th/mm3 Baso # (Auto) 0.0 (0.0-0.2) th/mm3 WBC Differential . Differential Comment Auto diff final PT 10.6 (9.8-11.6) sec INR 1.0 Ratio APTT 26.1 (23.4-31.7) sec Puncture Site Patient Temperature O2 Saturation (90-100) % ABG pH (7.380-7.420) ABG pCO2 (38-42) mmHg ABG pO2 (61-120) mmHg ABG HCO3 (22-26) mmol/L ABG O2 Content (12.0-20.0) Vol % ABG Base Excess (-2-2) mmol/L ABG Methemoglobin (0-2) % Hector Test Hemoglobin (12.0-16.0) G/DL Carboxyhemoglobin (0-4) % O2 Delivery Device Liter Flow L/M Vent Setting Inspired O2 % Critical Value Sodium 135 L (136-145) meq/L Potassium 4.0 (3.5-5.1) meq/L Chloride 105 (98-107) meq/L Carbon Dioxide 17.0 L (21.0-32.0) meq/L Anion Gap 13 (5-15) meq/L BUN 29 H (7-18) mg/dL Creatinine 1.38 H (0.60-1.30) mg/dL Estimated GFR 49 L (>89) mL/min Random Glucose 169 H (74-106) mg/dL Lactic Acid (0.4-2.0) mmol/L Calcium 8.3 L (8.5-10.1) mg/dL Calcium Adj for Albumin Phosphorus (2.5-4.9) mg/dL Magnesium 1.7 (1.5-2.5) mg/dL Total Bilirubin 0.5 (0.2-1.0) mg/dL AST 27 (15-37) U/L ALT 49 (12-78) U/L Alkaline Phosphatase 124 H (45-117) U/L Total Creatine Kinase 61 (39-308) U/L Troponin I 0.10 H (0.02-0.05) ng/mL B-Natriuretic Peptide (0-100) pg/mL Total Protein 6.7 (6.4-8.2) g/dL Albumin 1.8 L (3.4-5.0) g/dL Urine Color (Yellw/Straw) Urine Clarity (Clear) Urine pH (5.0-8.5) Ur Specific [place] (1.002-1.035) Urine Protein (Neg-Trace) mg/dL Urine Glucose (UA) (Negative) mg/dL Urine Ketones (Negative) mg/dL Urine Occult Blood (Negative) Urine Nitrate (Negative) Urine Bilirubin (Negative) Urine Urobilinogen (Less than 2) mg/dL Ur Leukocyte Esterase (Negative) Urine RBC (0-3) /hpf Urine WBC (0-5) /hpf Urine Bacteria (None) /hpf Urine Mucus (Occasional) /lpf Micro UA Comment Ur Microscopic Review Urine Culture Comments Nasal Screen MRSA (PCR) (Negative) 06/27/18 06/27/18 06/27/18 Range/Units 17:02 17:02 17:02 WBC (4.0-11.0) th/mm3 RBC (4.50-5.90) mil/mm3 Hgb (13.0-17.0) gm/dL Hct (39.0-51.0) % MCV (80.0-100.0) fL MCH (27.0-34.0) pg MCHC (32.0-36.0) % RDW (11.6-17.2) % Plt Count (150-450) th/mm3 MPV (7.0-11.0) fL Neut % (Auto) (16.0-70.0) % Lymph % (Auto) (9.0-44.0) % [place] % (Auto) (0.0-8.0) % Eos % (Auto) (0.0-4.0) % Baso % (Auto) (0.0-2.0) % Neut # (Auto) (1.8-7.7) th/mm3 Lymph # (Auto) (1.0-4.8) th/mm3 [place] # (Auto) (0.0-0.9) th/mm3 Eos # (Auto) (0.0-0.4) th/mm3 Baso # (Auto) (0.0-0.2) th/mm3 WBC Differential Differential Comment PT (9.8-11.6) sec INR Ratio APTT (23.4-31.7) sec Puncture Site Patient Temperature O2 Saturation (90-100) % ABG pH (7.380-7.420) ABG pCO2 (38-42) mmHg ABG pO2 (61-120) mmHg ABG HCO3 (22-26) mmol/L ABG O2 Content (12.0-20.0) Vol % ABG Base Excess (-2-2) mmol/L ABG Methemoglobin (0-2) % Hector Test Hemoglobin (12.0-16.0) G/DL Carboxyhemoglobin (0-4) % O2 Delivery Device Liter Flow L/M Vent Setting Inspired O2 % Critical Value Sodium Cancelled (136-145) meq/L Potassium Cancelled (3.5-5.1) meq/L Chloride Cancelled (98-107) meq/L Carbon Dioxide Cancelled (21.0-32.0) meq/L Anion Gap Cancelled (5-15) meq/L BUN Cancelled (7-18) mg/dL Creatinine Cancelled (0.60-1.30) mg/dL Estimated GFR Cancelled (>89) mL/min Random Glucose Cancelled (74-106) mg/dL Lactic Acid 8.3 H* (0.4-2.0) mmol/L Calcium Cancelled (8.5-10.1) mg/dL Calcium Adj for Albumin Cancelled Phosphorus (2.5-4.9) mg/dL Magnesium Cancelled (1.5-2.5) mg/dL Total Bilirubin Cancelled (0.2-1.0) mg/dL AST Cancelled (15-37) U/L ALT Cancelled (12-78) U/L Alkaline Phosphatase Cancelled (45-117) U/L Total Creatine Kinase (39-308) U/L Troponin I (0.02-0.05) ng/mL B-Natriuretic Peptide 458 H (0-100) pg/mL Total Protein Cancelled (6.4-8.2) g/dL Albumin Cancelled (3.4-5.0) g/dL Urine Color (Yellw/Straw) Urine Clarity (Clear) Urine pH (5.0-8.5) Ur Specific [place] (1.002-1.035) Urine Protein (Neg-Trace) mg/dL Urine Glucose (UA) (Negative) mg/dL Urine Ketones (Negative) mg/dL Urine Occult Blood (Negative) Urine Nitrate (Negative) Urine Bilirubin (Negative) Urine Urobilinogen (Less than 2) mg/dL Ur Leukocyte Esterase (Negative) Urine RBC (0-3) /hpf Urine WBC (0-5) /hpf Urine Bacteria (None) /hpf Urine Mucus (Occasional) /lpf Micro UA Comment Ur Microscopic Review Urine Culture Comments Nasal Screen MRSA (PCR) (Negative) 06/27/18 06/27/18 06/27/18 Range/Units 17:10 19:16 21:30 WBC (4.0-11.0) th/mm3 RBC (4.50-5.90) mil/mm3 Hgb (13.0-17.0) gm/dL Hct (39.0-51.0) % MCV (80.0-100.0) fL MCH (27.0-34.0) pg MCHC (32.0-36.0) % RDW (11.6-17.2) % Plt Count (150-450) th/mm3 MPV (7.0-11.0) fL Neut % (Auto) (16.0-70.0) % Lymph % (Auto) (9.0-44.0) % [place] % (Auto) (0.0-8.0) % Eos % (Auto) (0.0-4.0) % Baso % (Auto) (0.0-2.0) % Neut # (Auto) (1.8-7.7) th/mm3 Lymph # (Auto) (1.0-4.8) th/mm3 [place] # (Auto) (0.0-0.9) th/mm3 Eos # (Auto) (0.0-0.4) th/mm3 Baso # (Auto) (0.0-0.2) th/mm3 WBC Differential Differential Comment PT (9.8-11.6) sec INR Ratio APTT (23.4-31.7) sec Puncture Site Right radial Patient Temperature 98.6 O2 Saturation 91 (90-100) % ABG pH 7.52 H* (7.380-7.420) ABG pCO2 18 L* (38-42) mmHg ABG pO2 59 L* (61-120) mmHg ABG HCO3 14 L* (22-26) mmol/L ABG O2 Content 17.1 (12.0-20.0) Vol % ABG Base Excess -8.0 L (-2-2) mmol/L ABG Methemoglobin 0.5 (0-2) % Hector Test Present Hemoglobin 13.4 (12.0-16.0) G/DL Carboxyhemoglobin 1.3 (0-4) % O2 Delivery Device Non-rebreathing mask Liter Flow 15.00 L/M Vent Setting Inspired O2 100 % Critical Value Yes Sodium (136-145) meq/L Potassium (3.5-5.1) meq/L Chloride (98-107) meq/L Carbon Dioxide (21.0-32.0) meq/L Anion Gap (5-15) meq/L BUN (7-18) mg/dL Creatinine (0.60-1.30) mg/dL Estimated GFR (>89) mL/min Random Glucose (74-106) mg/dL Lactic Acid (0.4-2.0) mmol/L Calcium (8.5-10.1) mg/dL Calcium Adj for Albumin Phosphorus (2.5-4.9) mg/dL Magnesium (1.5-2.5) mg/dL Total Bilirubin (0.2-1.0) mg/dL AST (15-37) U/L ALT (12-78) U/L Alkaline Phosphatase (45-117) U/L Total Creatine Kinase (39-308) U/L Troponin I (0.02-0.05) ng/mL B-Natriuretic Peptide (0-100) pg/mL Total Protein (6.4-8.2) g/dL Albumin (3.4-5.0) g/dL Urine Color Yellow (Yellw/Straw) Urine Clarity Hazy H (Clear) Urine pH 5.0 (5.0-8.5) Ur Specific [place] 1.019 (1.002-1.035) Urine Protein 30 H (Neg-Trace) mg/dL Urine Glucose (UA) 50 (Negative) mg/dL Urine Ketones Negative (Negative) mg/dL Urine Occult Blood Negative (Negative) Urine Nitrate Negative (Negative) Urine Bilirubin Negative (Negative) Urine Urobilinogen Less than 2 (Less than 2) mg/dL Ur Leukocyte Esterase Negative (Negative) Urine RBC Less than 1 (0-3) /hpf Urine WBC Less than 1 (0-5) /hpf Urine Bacteria Rare H (None) /hpf Urine Mucus Few H (Occasional) /lpf Micro UA Comment Culture not ind Ur Microscopic Review Not Reportable Urine Culture Comments Culture not ind Nasal Screen MRSA (PCR) Not detected (Negative) 06/28/18 06/28/18 06/28/18 Range/Units 03:45 03:45 03:45 WBC 8.9 (4.0-11.0) th/mm3 RBC 3.56 L (4.50-5.90) mil/mm3 Hgb 10.5 L (13.0-17.0) gm/dL Hct 29.8 L (39.0-51.0) % MCV 83.9 (80.0-100.0) fL MCH 29.6 (27.0-34.0) pg MCHC 35.2 (32.0-36.0) % RDW 20.9 H (11.6-17.2) % Plt Count 132 L D (150-450) th/mm3 MPV 10.5 (7.0-11.0) fL Neut % (Auto) 90.3 H (16.0-70.0) % Lymph % (Auto) 5.7 L (9.0-44.0) % [place] % (Auto) 3.9 (0.0-8.0) % Eos % (Auto) 0.0 (0.0-4.0) % Baso % (Auto) 0.1 (0.0-2.0) % Neut # (Auto) 8.0 H (1.8-7.7) th/mm3 Lymph # (Auto) 0.5 L (1.0-4.8) th/mm3 [place] # (Auto) 0.3 (0.0-0.9) th/mm3 Eos # (Auto) 0.0 (0.0-0.4) th/mm3 Baso # (Auto) 0.0 (0.0-0.2) th/mm3 WBC Differential . Differential Comment Auto diff final PT 10.7 (9.8-11.6) sec INR 1.1 Ratio APTT (23.4-31.7) sec Puncture Site Patient Temperature O2 Saturation (90-100) % ABG pH (7.380-7.420) ABG pCO2 (38-42) mmHg ABG pO2 (61-120) mmHg ABG HCO3 (22-26) mmol/L ABG O2 Content (12.0-20.0) Vol % ABG Base Excess (-2-2) mmol/L ABG Methemoglobin (0-2) % Hector Test Hemoglobin (12.0-16.0) G/DL Carboxyhemoglobin (0-4) % O2 Delivery Device Liter Flow L/M Vent Setting Inspired O2 % Critical Value Sodium 141 (136-145) meq/L Potassium 3.8 (3.5-5.1) meq/L Chloride 110 H (98-107) meq/L Carbon Dioxide 17.2 L (21.0-32.0) meq/L Anion Gap 14 (5-15) meq/L BUN 26 H (7-18) mg/dL Creatinine 1.05 (0.60-1.30) mg/dL Estimated GFR 67 L (>89) mL/min Random Glucose 149 H (74-106) mg/dL Lactic Acid (0.4-2.0) mmol/L Calcium 7.5 L D (8.5-10.1) mg/dL Calcium Adj for Albumin Phosphorus 2.2 L (2.5-4.9) mg/dL Magnesium 2.2 (1.5-2.5) mg/dL Total Bilirubin 0.6 (0.2-1.0) mg/dL AST 45 H (15-37) U/L ALT 35 (12-78) U/L Alkaline Phosphatase 109 (45-117) U/L Total Creatine Kinase (39-308) U/L Troponin I (0.02-0.05) ng/mL B-Natriuretic Peptide (0-100) pg/mL Total Protein 6.0 L D (6.4-8.2) g/dL Albumin 1.5 L (3.4-5.0) g/dL Urine Color (Yellw/Straw) Urine Clarity (Clear) Urine pH (5.0-8.5) Ur Specific [place] (1.002-1.035) Urine Protein (Neg-Trace) mg/dL Urine Glucose (UA) (Negative) mg/dL Urine Ketones (Negative) mg/dL Urine Occult Blood (Negative) Urine Nitrate (Negative) Urine Bilirubin (Negative) Urine Urobilinogen (Less than 2) mg/dL Ur Leukocyte Esterase (Negative) Urine RBC (0-3) /hpf Urine WBC (0-5) /hpf Urine Bacteria (None) /hpf Urine Mucus (Occasional) /lpf Micro UA Comment Ur Microscopic Review Urine Culture Comments Nasal Screen MRSA (PCR) (Negative) 06/28/18 06/28/18 06/28/18 Range/Units 05:34 10:19 18:05 WBC (4.0-11.0) th/mm3 RBC (4.50-5.90) mil/mm3 Hgb (13.0-17.0) gm/dL Hct (39.0-51.0) % MCV (80.0-100.0) fL MCH (27.0-34.0) pg MCHC (32.0-36.0) % RDW (11.6-17.2) % Plt Count (150-450) th/mm3 MPV (7.0-11.0) fL Neut % (Auto) (16.0-70.0) % Lymph % (Auto) (9.0-44.0) % [place] % (Auto) (0.0-8.0) % Eos % (Auto) (0.0-4.0) % Baso % (Auto) (0.0-2.0) % Neut # (Auto) (1.8-7.7) th/mm3 Lymph # (Auto) (1.0-4.8) th/mm3 [place] # (Auto) (0.0-0.9) th/mm3 Eos # (Auto) (0.0-0.4) th/mm3 Baso # (Auto) (0.0-0.2) th/mm3 WBC Differential Differential Comment PT (9.8-11.6) sec INR Ratio APTT (23.4-31.7) sec Puncture Site Right radial Right radial Patient Temperature 98.6 98.6 O2 Saturation 92 96 (90-100) % ABG pH 7.49 H 7.25 L* (7.380-7.420) ABG pCO2 19 L* 38 (38-42) mmHg ABG pO2 62 119 (61-120) mmHg ABG HCO3 15 L* 16 L* (22-26) mmol/L ABG O2 Content 12.8 13.8 (12.0-20.0) Vol % ABG Base Excess -8.2 L -10.0 L (-2-2) mmol/L ABG Methemoglobin 1.2 1.4 (0-2) % Hector Test Present Present Hemoglobin 9.9 L 10.1 L (12.0-16.0) G/DL Carboxyhemoglobin 1.1 0.7 (0-4) % O2 Delivery Device Bipap 10/5/50% Ventilator Liter Flow L/M Vent Setting Prvc/[id number]/ Inspired O2 50 65 % Critical Value Yes Yes Sodium (136-145) meq/L Potassium (3.5-5.1) meq/L Chloride (98-107) meq/L Carbon Dioxide (21.0-32.0) meq/L Anion Gap (5-15) meq/L BUN (7-18) mg/dL Creatinine (0.60-1.30) mg/dL Estimated GFR (>89) mL/min Random Glucose (74-106) mg/dL Lactic Acid 2.4 H (0.4-2.0) mmol/L Calcium (8.5-10.1) mg/dL Calcium Adj for Albumin Phosphorus (2.5-4.9) mg/dL Magnesium (1.5-2.5) mg/dL Total Bilirubin (0.2-1.0) mg/dL AST (15-37) U/L ALT (12-78) U/L Alkaline Phosphatase (45-117) U/L Total Creatine Kinase (39-308) U/L Troponin I (0.02-0.05) ng/mL B-Natriuretic Peptide (0-100) pg/mL Total Protein (6.4-8.2) g/dL Albumin (3.4-5.0) g/dL Urine Color (Yellw/Straw) Urine Clarity (Clear) Urine pH (5.0-8.5) Ur Specific [place] (1.002-1.035) Urine Protein (Neg-Trace) mg/dL Urine Glucose (UA) (Negative) mg/dL Urine Ketones (Negative) mg/dL Urine Occult Blood (Negative) Urine Nitrate (Negative) Urine Bilirubin (Negative) Urine Urobilinogen (Less than 2) mg/dL Ur Leukocyte Esterase (Negative) Urine RBC (0-3) /hpf Urine WBC (0-5) /hpf Urine Bacteria (None) /hpf Urine Mucus (Occasional) /lpf Micro UA Comment Ur Microscopic Review Urine Culture Comments Nasal Screen MRSA (PCR) (Negative) 06/28/18 06/29/18 06/29/18 Range/Units 19:50 03:35 03:35 WBC 21.9 H D (4.0-11.0) th/mm3 RBC 3.23 L (4.50-5.90) mil/mm3 Hgb 9.4 L (13.0-17.0) gm/dL Hct 27.6 L (39.0-51.0) % MCV 85.6 (80.0-100.0) fL MCH 29.0 (27.0-34.0) pg MCHC 33.8 (32.0-36.0) % RDW 21.8 H (11.6-17.2) % Plt Count 354 D (150-450) th/mm3 MPV 10.6 (7.0-11.0) fL Neut % (Auto) (16.0-70.0) % Lymph % (Auto) (9.0-44.0) % [place] % (Auto) (0.0-8.0) % Eos % (Auto) (0.0-4.0) % Baso % (Auto) (0.0-2.0) % Neut # (Auto) (1.8-7.7) th/mm3 Lymph # (Auto) (1.0-4.8) th/mm3 [place] # (Auto) (0.0-0.9) th/mm3 Eos # (Auto) (0.0-0.4) th/mm3 Baso # (Auto) (0.0-0.2) th/mm3 WBC Differential Differential Comment PT (9.8-11.6) sec INR Ratio APTT (23.4-31.7) sec Puncture Site Patient Temperature O2 Saturation (90-100) % ABG pH (7.380-7.420) ABG pCO2 (38-42) mmHg ABG pO2 (61-120) mmHg ABG HCO3 (22-26) mmol/L ABG O2 Content (12.0-20.0) Vol % ABG Base Excess (-2-2) mmol/L ABG Methemoglobin (0-2) % Hector Test Hemoglobin (12.0-16.0) G/DL Carboxyhemoglobin (0-4) % O2 Delivery Device Liter Flow L/M Vent Setting Inspired O2 % Critical Value Sodium 141 (136-145) meq/L Potassium 3.7 3.6 (3.5-5.1) meq/L Chloride 114 H (98-107) meq/L Carbon Dioxide 16.5 L (21.0-32.0) meq/L Anion Gap 11 (5-15) meq/L BUN 28 H (7-18) mg/dL Creatinine 1.09 (0.60-1.30) mg/dL Estimated GFR 64 L (>89) mL/min Random Glucose 165 H (74-106) mg/dL Lactic Acid (0.4-2.0) mmol/L Calcium 7.5 L (8.5-10.1) mg/dL Calcium Adj for Albumin Phosphorus 4.7 D (2.5-4.9) mg/dL Magnesium 2.2 (1.5-2.5) mg/dL Total Bilirubin 0.4 (0.2-1.0) mg/dL AST 38 H (15-37) U/L ALT 40 (12-78) U/L Alkaline Phosphatase 115 (45-117) U/L Total Creatine Kinase (39-308) U/L Troponin I (0.02-0.05) ng/mL B-Natriuretic Peptide (0-100) pg/mL Total Protein 5.8 L (6.4-8.2) g/dL Albumin 1.5 L (3.4-5.0) g/dL Urine Color (Yellw/Straw) Urine Clarity (Clear) Urine pH (5.0-8.5) Ur Specific [place] (1.002-1.035) Urine Protein (Neg-Trace) mg/dL Urine Glucose (UA) (Negative) mg/dL Urine Ketones (Negative) mg/dL Urine Occult Blood (Negative) Urine Nitrate (Negative) Urine Bilirubin (Negative) Urine Urobilinogen (Less than 2) mg/dL Ur Leukocyte Esterase (Negative) Urine RBC (0-3) /hpf Urine WBC (0-5) /hpf Urine Bacteria (None) /hpf Urine Mucus (Occasional) /lpf Micro UA Comment Ur Microscopic Review Urine Culture Comments Nasal Screen MRSA (PCR) (Negative) 06/29/18 06/29/18 Range/Units 06:00 11:20 WBC (4.0-11.0) th/mm3 RBC (4.50-5.90) mil/mm3 Hgb (13.0-17.0) gm/dL Hct (39.0-51.0) % MCV (80.0-100.0) fL MCH (27.0-34.0) pg MCHC (32.0-36.0) % RDW (11.6-17.2) % Plt Count (150-450) th/mm3 MPV (7.0-11.0) fL Neut % (Auto) (16.0-70.0) % Lymph % (Auto) (9.0-44.0) % [place] % (Auto) (0.0-8.0) % Eos % (Auto) (0.0-4.0) % Baso % (Auto) (0.0-2.0) % Neut # (Auto) (1.8-7.7) th/mm3 Lymph # (Auto) (1.0-4.8) th/mm3 [place] # (Auto) (0.0-0.9) th/mm3 Eos # (Auto) (0.0-0.4) th/mm3 Baso # (Auto) (0.0-0.2) th/mm3 WBC Differential Differential Comment PT (9.8-11.6) sec INR Ratio APTT (23.4-31.7) sec Puncture Site Right radial Patient Temperature 98.6 O2 Saturation 95 (90-100) % ABG pH 7.37 L (7.380-7.420) ABG pCO2 28 L (38-42) mmHg ABG pO2 87 (61-120) mmHg ABG HCO3 15 L* (22-26) mmol/L ABG O2 Content 13.1 (12.0-20.0) Vol % ABG Base Excess -8.9 L (-2-2) mmol/L ABG Methemoglobin 1.4 (0-2) % Hector Test Present Hemoglobin 9.7 L (12.0-16.0) G/DL Carboxyhemoglobin 0.9 (0-4) % O2 Delivery Device Ventilator Liter Flow L/M Vent Setting Prvc Inspired O2 40 % Critical Value Yes Sodium (136-145) meq/L Potassium (3.5-5.1) meq/L Chloride (98-107) meq/L Carbon Dioxide (21.0-32.0) meq/L Anion Gap (5-15) meq/L BUN (7-18) mg/dL Creatinine (0.60-1.30) mg/dL Estimated GFR (>89) mL/min Random Glucose (74-106) mg/dL Lactic Acid 1.2 (0.4-2.0) mmol/L Calcium (8.5-10.1) mg/dL Calcium Adj for Albumin Phosphorus (2.5-4.9) mg/dL Magnesium (1.5-2.5) mg/dL Total Bilirubin (0.2-1.0) mg/dL AST (15-37) U/L ALT (12-78) U/L Alkaline Phosphatase (45-117) U/L Total Creatine Kinase (39-308) U/L Troponin I (0.02-0.05) ng/mL B-Natriuretic Peptide (0-100) pg/mL Total Protein (6.4-8.2) g/dL Albumin (3.4-5.0) g/dL Urine Color (Yellw/Straw) Urine Clarity (Clear) Urine pH (5.0-8.5) Ur Specific [place] (1.002-1.035) Urine Protein (Neg-Trace) mg/dL Urine Glucose (UA) (Negative) mg/dL Urine Ketones (Negative) mg/dL Urine Occult Blood (Negative) Urine Nitrate (Negative) Urine Bilirubin (Negative) Urine Urobilinogen (Less than 2) mg/dL Ur Leukocyte Esterase (Negative) Urine RBC (0-3) /hpf Urine WBC (0-5) /hpf Urine Bacteria (None) /hpf Urine Mucus (Occasional) /lpf Micro UA Comment Ur Microscopic Review Urine Culture Comments Nasal Screen MRSA (PCR) (Negative) Imaging Data Radiologist's impression: Chest X-Ray 06/27/18 16:52 CONCLUSION: 1. Bibasilar airspace disease. 2. Status post CABG. Chest X-Ray 06/28/18 06:00 CONCLUSION: Persistent airspace infiltrates in the right lung and left lower lung with slight improvement in aeration in the left lower lung. Chest X-Ray 06/28/18 13:42 CONCLUSION: 1. Right IJ central line in good position without pneumothorax. 2. Persistent bilateral airspace disease and likely associated pleural fluid, unchanged from earlier exam. Chest X-Ray 06/28/18 17:47 CONCLUSION: Bilateral parenchymal consolidation. Chest X-Ray 06/29/18 06:00 CONCLUSION: Improving bibasilar airspace disease. Discharge Plan Discharge Disposition Patient Disposition: ED Admit(ED Internal Use Only) Discharge Condition Condition: Stable Discharge Order Discharge Orders: ED Use Only Admit Order (Routine); Ordered 06/27/18 Ordered By: Rod Amezcua Discharge Details Diagnosis: Severe sepsis, Bilateral pneumonia, Hypoxemia Physicians Team ED Provider: Taurus Hugo ED Midlevel Provider: Rod Amezcua Primary Care Provider: Jem Kaufman Attending Provider: Hoa Marie Other Providers: Celso Stack ; Francisco Campos,Osmar ; Brenton Antunez Status ED Status: Left Department Discharge Information Discharge Date/Time: 06/27/18 20:09
[2018-06-27 17:17] LABS: ABG PCO2 18 mmHg (38-42); ABG PO2 59 mmHg (61-120)
[2018-06-27 17:31] LABS: Hematocrit 33.2 % (39.0-51.0); Hemoglobin 11.4 gm/dL (13.0-17.0); Lymph # (Auto) 0.6 th/mm3 (1.0-4.8); Lymph % (Auto) 4.2 % (9.0-44.0); Mean Corpuscular HGB Conc 34.5 % (32.0-36.0); Mean Corpuscular Hemoglobin 29.8 pg (27.0-34.0); Mean Corpuscular Volume 86.6 fL (80.0-100.0); Mono # (Auto) 0.7 th/mm3 (0.0-0.9); Mono % (Auto) 4.8 % (0.0-8.0); Platelet Count 192 th/mm3 (150-450); Red Blood Count 3.83 mil/mm3 (4.50-5.90); Red Cell Distribution Width 21.4 % (11.6-17.2); White Blood Count 15.4 th/mm3 (4.0-11.0)
[2018-06-27 17:37] LABS: Activated Partial Thrombo Time 26.1 sec (23.4-31.7); Prothrombin Time 10.6 sec (9.8-11.6)
--- NOTE | 2018-06-27 17:37 | XR ---
EXAM DATE: 06/27/2018 5:25 PM EST AGE/SEX: 87 years / Male INDICATIONS: Short of breath. CLINICAL DATA: This is the patient's subsequent encounter. Patient reports that signs and symptoms h ave been present for 1 day and indicates a pain score of 3/10. MEDICAL/SURGICAL HISTORY: . Gastroesophageal reflux disease. Abdominal aortic aneurysm. Chroni c pneumonia. Coronary artery disease. Essential hypertension. Gout. Atrial fibrillation. Hypothyroidi sm. Osteoarthritis. Restless leg syndrome. . Cholecystectomy. Tonsillectomy. Coronary artery byp ass graft. Coronary artery stent placement COMPARISON: [facility], CHEST 1V SINGLE AP, 06/18/2018. . FINDINGS: A single AP view of the chest demonstrates bibasilar consolidation. Previous median sternotomy. Hear t normal in size. The cardiomediastinal contours are unremarkable. Osseous structures are intact. CONCLUSION: 1. Bibasilar airspace disease. 2. Status post CABG. Electronically signed by: Nikolay Figueroa MD Board Certified Radiologist 06/27/2018 5:35 PM EST
[2018-06-27] MEDS ORDERED: Vancomycin Inj 1,000 MG in Sodium Chlor 0.9% Inj 250 ML IV.SIG ONE (17:38)
[2018-06-27] MEDS ORDERED: Azithromycin Inj 500 MG in Sodium Chlor 0.9% Inj 250 ML IV.SIG STA (17:38)
[2018-06-27 17:39] LABS: Albumin 1.8 g/dL (3.4-5.0); Anion Gap 13 meq/L (5-15); Blood Urea Nitrogen 29 mg/dL (7-18); Calcium 8.3 mg/dL (8.5-10.1); Chloride 105 meq/L (98-107); Glomerular Filtration Rate 49 mL/min (>89); Glucose,Random 169 mg/dL (74-106); Magnesium 1.7 mg/dL (1.5-2.5); Sodium 135 meq/L (136-145)
[2018-06-27 17:40] LABS: Alanine Aminotransferase 49 U/L (12-78); Aspartate Aminotransferase 27 U/L (15-37)
[2018-06-27 17:43] LABS: Alkaline Phosphatase 124 U/L (45-117); Total Protein 6.7 g/dL (6.4-8.2)
[2018-06-27 17:50] LABS: Creatine Kinase 61 U/L (39-308)
[2018-06-27] MEDS ORDERED: Sod Chloride 0.9% Inj 1,000 ML IV.SIG SCH (18:00)
[2018-06-27] MEDS ORDERED: Potassium Chlor 20 mEq Premix 20 MEQ/100 ML PIGGYBACK IV.SIG PRN (18:24)
[2018-06-27] MEDS ORDERED: Sodium Phosphate Inj 30 MMOL in Sodium Chlor 0.9% Inj 250 ML IV.SIG PRN (18:24)
[2018-06-27] MEDS ORDERED: Magnesium Oxide 400 MG Tablet PO PRN (18:24)
[2018-06-27] MEDS ORDERED: Magnesium Sulfate Inj 4 GM in Sodium Chlor 0.9% Inj 92 ML IV.SIG PRN (18:24)
[2018-06-27] MEDS ORDERED: Potassium Chlor 40 mEq Premix 40 MEQ/100 ML PIGGYBACK IV.SIG PRN (18:24)
[2018-06-27] MEDS ORDERED: Potassium Phosphate 500 MG Soluble Tablet PO PRN (18:24)
[2018-06-27] MEDS ORDERED: Potassium Chloride 25 MEQ Effervescent Tablet PO PRN (18:24)
[2018-06-27] MEDS ORDERED: Acetaminophen 325 MG Tablet PO PRN (18:24)
[2018-06-27] MEDS ORDERED: Bisacodyl 10 MG Supp RECTAL PRN (18:24)
[2018-06-27] MEDS ORDERED: Potassium Phosphate Inj 30 MMOL in Sodium Chlor 0.9% Inj 250 ML IV.SIG PRN (18:24)
[2018-06-27] MEDS ORDERED: Magnesium Sulfate Inj 2 GM in Sodium Chlor 0.9% Inj 96 ML IV.SIG PRN (18:24)
[2018-06-27] MEDS ORDERED: Magnesium Sulfate Inj 2 GM in Sodium Chlor 0.9% Inj 96 ML IV.SIG ONE (18:32)
[2018-06-27] MEDS ORDERED: Vancomycin Consult Pharmacy OTHER PRN (18:32)
[2018-06-27] MEDS ORDERED: Vancomycin Inj 1,000 MG in Sodium Chlor 0.9% Inj 250 ML IV.SIG SCH (18:35)
--- NOTE | 2018-06-27 18:42 | P.HPCC ---
History of Present Illness Service: Critical care Primary Care Physician: Jem Kaufman MD Chief Complaint: Shortness of breath History of Present Illness: 87yM presenting from [facility] with shortness of breath and cough. The patient has a history of severe COPD and reports that he's been "congested" and coughing for the past 2-3 days, was unable to catch his breath earlier today so he presented to the ED via EMS. His initial pulse ox at that time was in the mid 80s. He admits to productive cough and chills, denies fever , chest pain, palpitations, nausea or vomiting. The patient's reports that the patient had a significant decline in his functional status after he was admitted in 04/2018, is now no longer ambulatory and resides in a rehab facility , unable to perform most ADLs independently. COPD history- on 3L O2 around the clock at home, uses nebulizers/ inhalers ( including Symbicort), chronically on prednisone, multiple previous admissions for pneumonia (most recently in 04/2018, admitted to ICU but not intubated), follows with Dr. Magaña of pulmonology. The patient also had a PEG tube placed on 06/20/[address] Vázquez of for dysphagia and recurrent aspiration. - Diagnosis (1) Acute hypoxemic respiratory failure (2) COPD (chronic obstructive pulmonary disease) (3) Lactic acidosis (4) Malnutrition (5) Severe sepsis Inpatient Certification: I certify that the inpatient services were ordered in accordance with Medicare regulations governing the order. This includes certification that hospital inpatient services are reasonable and necessary and in the case of services not specified as inpatient-only under 42 CFR 419.22(n), that they are appropriately provided as inpatient services in accordance to with the 2-midnight benchmark under 43 CFR 412.3(e) Estimated Total Length of Stay (Days): 5 Plans for Post Hospital Care: Not yet determined Review of Systems All other systems reviewed negative except as stated in HPI Constitutional: Reports chills, Denies fever(s) Ears, Nose, Mouth, and Throat: Reports nasal congestion Cardiovascular: Denies chest pain Respiratory: Reports cough, Reports shortness of breath Gastrointestinal: Denies nausea Genitourinary: Denies painful urination Musculoskeletal: Denies body aches Neurologic: Denies confusion Psychiatric: Denies confusion [facility] - History History 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, 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, 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 - Medical History Medical History: Medical History (Last Reviewed 06/27/18 @ 19:39 by Hoa Marie DO) Atherosclerotic heart disease Chronic pain Failure to thrive Pneumonia Protein calorie malnutrition Abdominal aortic aneurysm Abnormality of gait due to impairment of balance Chronic pneumonia Coronary artery disease Essential hypertension Gastroesophageal reflux disease Gout History of atrial fibrillation History of cataract Hyperlipidemia Hypothyroidism Osteoarthritis Restless leg syndrome - Surgical History Surgical History: Surgical History (Last Reviewed 06/27/18 @ 19:39 by Hoa Marie DO) Gastrostomy in place History of cholecystectomy History of coronary artery bypass graft History of coronary artery stent placement History of tonsillectomy - Family History Family History: Family History (Last Reviewed 06/27/18 @ 19:39 by Hoa Marie DO) Other Family history of coronary artery disease Family history pertaining to father Patient's mother is - Social History I have reviewed the patient's Social History: Yes - Tobacco History Second Hand Smoke Exposure: No Smoking Status: Former smoker Tobacco Type: Cigarettes - Alcohol History How Often Do You Have a Drink Containing Alcohol: Never - Substance Use History Substance History: No History of Abuse - Travel History Recent Travel in the [place] Within the Last 8 Weeks: No Recent Travel Out of the Country Within the Last 8 Weeks: No - Immunization History Tetanus Immunization: Unsure Medications and Allergies Active Medications: Active Medications Acetaminophen (Tylenol) 650 mg PO Q6H PRN PRN Reason: PAIN 1-10 AND/OR FEVER >101F Al Hydroxide/Mg Hydroxide (Milk Of Magnxiao Liq) 30 ml PO Q12H PRN PRN Reason: Mild Constipation Albuterol (Duoneb Neb (Prn)) 1 ampul NEB Q2HR NEB PRN PRN Reason: WHEEZING Albuterol (Duoneb Neb (Vidya)) 1 ampul NEB Q4HR NEB VIDYA Bisacodyl (Dulcolax Supp) 10 mg RECTAL DAILY PRN PRN Reason: SEVERE CONSITIPATION Chlorhexidine Gluconate (Chlorhexidine 2% Cloth) 3 pack TOPICAL DAILY@0400 VIDYA Stop: 07/03/18 03:59 Chlorhexidine Gluconate (Chlorhexidine 2% Cloth) 3 pack TOPICAL DAILY@0400 PRN PRN Reason: Extra cloth needed Stop: 07/03/18 03:59 Heparin Sodium (Porcine) (Heparin Inj) 5,000 units SQ Q8H VIDYA Sodium Chloride (Ns Inj) 1,000 mls @ 1,000 mls/hr IV.SIG BOLUS VIDYA Stop: 06/27/18 18:59 Last Admin: 06/27/18 18:20 Dose: 1,000 mls/hr Magnesium Sulfate 4 gm/ Sodium (Chloride) 100 mls @ 50 mls/hr IV.SIG UNSCH PRN PRN Reason: For Magnesium 0.9 - 1.1 mg/dL Magnesium Sulfate 2 gm/ Sodium (Chloride) 100 mls @ 50 mls/hr IV.SIG UNSCH PRN PRN Reason: For Magnesium 1.2 - 1.6 mg/dL Sodium Chloride (Ns Inj) 1,000 mls @ 84 mls/hr IV.CONT .[id number] VIDYA Potassium Chloride (Kcl 40 Meq Premix Inj) 40 meq in 100 mls @ 25 mls/hr IV.SIG Q2H PRN PRN Reason: For Potassium 2.8 - 3.2 mEq/L Potassium Chloride (Kcl 20 Meq Premix Inj) 20 meq in 100 mls @ 50 mls/hr IV.SIG Q2H PRN PRN Reason: For Potassium 3.3 - 3.5 mEq/L Potassium Chloride (Kcl 40 Meq Premix Inj) 40 meq in 100 mls @ 25 mls/hr IV.SIG UNSCH PRN PRN Reason: For Potassium 3.3 - 3.5 mEq/L Potassium Phosphate 30 mmol/ (Sodium Chloride) 260 mls @ 42 mls/hr IV.SIG UNSCH PRN PRN Reason: SEE LABEL COMMENTS Potassium Chloride (Kcl 20 Meq Premix Inj) 20 meq in 100 mls @ 50 mls/hr IV.SIG Q2H PRN PRN Reason: For Potassium 2.8 - 3.2 mEq/L Sodium Phosphate 30 mmol/ (Sodium Chloride) 260 mls @ 42 mls/hr IV.SIG UNSCH PRN PRN Reason: For Phosphorus < 2.5 mg/dL Magnesium Sulfate 2 gm/ Sodium (Chloride) 100 mls @ 50 mls/hr IV.SIG ONCE ONE Stop: 06/27/18 20:31 Vancomycin HCl 1,000 mg/ (Sodium Chloride) 250 mls @ 250 mls/hr IV.SIG Q12H VIDYA Piperacillin/Tazobactam/Dextrose (Zosyn 3.375 Gm Premix) 3.375 gm in 50 mls @ 100 mls/hr IV.SIG Q8H VIDYA Azithromycin 500 mg/ Sodium (Chloride) 250 mls @ 250 mls/hr IV.SIG Q24H VIDYA Lactulose (Lactulose Liq) 30 ml PO DAILY PRN PRN Reason: SEVERE CONSITIPATION Levothyroxine Sodium (Synthroid) 25 mcg G-TUBE DAILY [facility] Magnesium Oxide (Mag-Ox) 800 mg PO UNSCH PRN PRN Reason: For Magnesium 1.2 - 1.6 mg/dL Methylprednisolone Sodium Succinate (Solumedrol Inj) 60 mg IV.PUSH Q8HR [facility] Non-Formulary Medication (Omeprazole [Omeprazole]) 40 mg G-TUBE DAILY VIDYA Ondansetron HCl (Zofran Inj) 4 mg IV.PUSH Q6H PRN PRN Reason: NAUSEA OR VOMITING Pharmacy Profile Note (Vancomycin Consult Pharmacy) 1 each OTHER UNSCH PRN PRN Reason: Pharmacy to dose Potassium Bicarb/Potassium Chloride (K-Lyte Cl Eff) 50 meq PO UNSCH PRN PRN Reason: For Potassium 3.3 - 3.5 mEq/L Potassium Phosphate (K-Phos Original) 2,000 mg PO Q4H PRN PRN Reason: Phosphorus Less Than 2.5 mg/dL Potassium Phosphate (K-Phos Original) 2,000 mg PO UNSCH PRN PRN Reason: SEE LABEL COMMENTS Pravastatin Sodium (Pravachol) 80 mg G-TUBE DAILY [facility] Senna/Docusate Sodium (Marianela-Colace) 1 tab PO BID [facility] Sennosides (Senokot) 17.2 mg PO Q12H PRN PRN Reason: Moderate Constipation Sodium Chloride (Ns Flush) 2 ml IV.FLUSH BID [facility] Sodium Chloride (Ns Flush) 2 ml IV.FLUSH PRN PRN PRN Reason: FLUSH AFTER USING IV ACCESS Allergies Allergy/AdvReac Type Severity Reaction Status Date / Time peanut oil Allergy Severe Diarrhea Verified 06/18/18 18:41 peanut Allergy Intermediate Diarrhea Verified 06/18/18 18:41 Home Medications Medication Instructions Recorded Confirmed Type aspirin [Aspir-81] 81 mg FEEDING TUBE DAILY 05/08/18 06/27/18 History cholecalciferol (vitamin D3) 1,000 unit FEEDING TUBE DAILY 05/08/18 06/27/18 History [Vitamin D3] levothyroxine 25 mcg FEEDING TUBE DAILY 05/08/18 06/27/18 History pravastatin 80 mg FEEDING TUBE DAILY 05/08/18 06/27/18 History ropinirole 0.5 mg FEEDING TUBE HS 05/08/18 06/27/18 History albuterol sulfate 0.63 mg INHALATION Q2H PRN 06/27/18 06/27/18 History budesonide-formoterol [Symbicort] 1 puff INHALATION DAILY 06/27/18 06/27/18 History diltiazem HCl 120 mg FEEDING TUBE DAILY 06/27/18 06/27/18 History ipratropium-albuterol 1 amp NEB Q4H 06/27/18 06/27/18 History levofloxacin 750 mg FEEDING TUBE DAILY 06/27/18 06/27/18 History magnesium citrate [Citroma] 296 ml FEEDING TUBE DAILY PRN 06/27/18 06/27/18 History omeprazole 40 mg DAILY 06/27/18 06/27/18 History prednisone 20 mg FEEDING TUBE DIRECTED 06/27/18 06/27/18 History Results - Labs CBC & Chem 7: 06/27/18 17:02 06/27/18 17:02 Labs: Short CBC 06/27/18 Range/Units 17:02 WBC 15.4 H (4.0-11.0) th/mm3 Hgb 11.4 L (13.0-17.0) gm/dL Hct 33.2 L (39.0-51.0) % Plt Count 192 (150-450) th/mm3 BMP 06/27/18 06/27/18 17:02 17:02 Sodium 135 L Cancelled Potassium 4.0 Cancelled Chloride 105 Cancelled Carbon Dioxide 17.0 L Cancelled BUN 29 H Cancelled Creatinine 1.38 H Cancelled Calcium 8.3 L Cancelled Cardiac Enzymes 06/27/18 Range/Units 17:02 Total Creatine Kinase 61 (39-308) U/L Troponin I 0.10 H (0.02-0.05) ng/mL Liver Function 06/27/18 06/27/18 Range/Units 17:02 17:02 Total Bilirubin 0.5 Cancelled (0.2-1.0) mg/dL AST 27 Cancelled (15-37) U/L ALT 49 Cancelled (12-78) U/L Alkaline Phosphatase 124 H Cancelled (45-117) U/L Albumin 1.8 L Cancelled (3.4-5.0) g/dL - Imaging Impressions Chest X-Ray 06/27/18 16:52 CONCLUSION: 1. Bibasilar airspace disease. 2. Status post CABG. Exam Vital signs: Vital Signs 06/27/18 16:45 06/27/18 16:54 06/27/18 17:36 Temperature 99.8 F H Pulse Rate 114 H Respiratory Rate 36 H Blood Pressure 134/61 Pulse Oximetry 84 L 95 96 Intake & Output 06/26/18 06/27/18 06/27/18 18:59 06:59 18:59 Intake Total 100 / 100 Balance 100 / 100 Weight 61.235 kg Intake: IV 100 / 100 Maxipime Inj 2,000 MG In NS Inj 100 / 100 100 ML @ 200 mls/hr IV.SIG STAT STA Rx#:[id number] Narrative: GEN: Frail-appearing elderly male lying in bed, on bipap, mild respiratory distress HEENT: NCAT, PERRL NECK: Trachea midline CARDIO: Tachy, irregular RESP: Tachypneic, increased work of breathing, able to speak in 4-5 word phrases , O2 sats high 90s on bipap, diminished breath sounds with prolonged expiratory phase bilaterally ABD/GI: PEG tube in place, site clean/ dry/ intact, abdomen soft and non-tender EXT/MSK: No peripheral edema SKIN: Warm and well-perfused, stage 1 sacral decubitus NEURO: A&Ox3, answers questions appropriately, no focal neuro deficits PSYCH: Appears calm Caprini VTE Risk Assessment Caprini VTE Risk Assessment: Moderate/High Risk (score >= 2) Caprini Risk Assessment Model: Point Value = 1 Point Value = 2 Point Value = 3 Point Value = 5 Age 41-60 Minor surgery BMI > 25 kg/m2 Swollen legs Varicose veins or History of unexplained or recurrent spontaneous Oral contraceptives or hormone replacement Sepsis (< 1 month) Serious lung disease, including pneumonia (< 1 month) Abnormal pulmonary function Acute myocardial infarction Congestive heart failure (< 1 month) History of inflammatory bowel disease Medical patient at bed rest Age 61-74 Arthroscopic surgery Major open surgery (> 45 min) Laparoscopic surgery (> 45 min) Malignancy Confined to bed (> 72 hours) Immobilizing plaster cast Central venous access Age >= 75 History of VTE Family history of VTE Factor V Leiden Prothrombin [id number] Lupus anticoagulant Anticardiolipin antibodies Elevated serum homocysteine Heparin-induced thrombocytopenia Other congenital or acquired thrombophilia Stroke (< 1 month) Elective arthroplasty Hip, pelvis, or leg fracture Acute spinal cord injury (< 1 month) Prophylaxis Regimen: Total Risk Factor Score Risk Level Prophylaxis Regimen 0-1 Low Early ambulation 2 Moderate Order ONE of the following: *Sequential Compression Device (SCD) *Heparin 5000 units SQ BID 3-4 Higher Order ONE of the following medications: *Heparin 5000 units SQ TID *Enoxaparin/Lovenox 40 mg SQ daily (WT < 150 kg, CrCl > 30 mL/min) *Enoxaparin/Lovenox 30 mg SQ daily (WT < 150 kg, CrCl > 10-29 mL/min) *Enoxaparin/Lovenox 30 mg SQ BID (WT < 150 kg, CrCl > 30 mL/min) AND/OR *Sequential Compression Device (SCD) 5 or more Highest Order ONE of the following medications: *Heparin 5000 units SQ TID (Preferred with Epidurals) *Enoxaparin/Lovenox 40 mg SQ daily (WT < 150 kg, CrCl > 30 mL/min) *Enoxaparin/Lovenox 30 mg SQ daily (WT < 150 kg, CrCl > 10-29 mL/min) *Enoxaparin/Lovenox 30 mg SQ BID (WT < 150 kg, CrCl > 30 mL/min) AND *Sequential Compression Device (SCD) Assessment and Plan - Problem List (1) Acute hypoxemic respiratory failure Code(s): J96.01 - Acute respiratory failure with hypoxia Status: Acute (2) COPD (chronic obstructive pulmonary disease) Code(s): J44.9 - Chronic obstructive pulmonary disease, unspecified Status: Chronic (3) Lactic acidosis Code(s): E87.2 - Acidosis Status: Acute (4) Malnutrition Code(s): E46 - Unspecified protein-calorie malnutrition Status: Acute (5) Severe sepsis Code(s): A41.9 - Sepsis, unspecified organism; R65.20 - Severe sepsis without septic shock Status: Acute - Assessment and Plan Plan: 87yM presenting with COPD exacerbation, sepsis secondary to HCAP, acute hypoxic respiratory failure requiring bipap NEURO: History of restless leg syndrome * PRN tylenol for pain, delirium precautions * Continue home dose of requip CARDIO: History of essential hypertension, atrial fibrillation, coronary artery disease * Continue home dose of aspirin, pravastatin, cardizem * Rate control if needed RESP: Severe sepsis secondary to healthcare associated pneumonia COPD with acute exacerbation Acute hypoxic respiratory failure requiring non-invasive ventilation * Continue bipap, repeat ABG in AM or earlier if patient appears distressed * Continue scheduled and PRN nebs * Continue steroids * Will give a dose of IV magnesium as well * Will treat for recurrent HCAP with azithromycin, zosyn, vancomycin * Trend lactic acid until clear * Check urine legionella * Follow up cultures and MRSA swab * I had a long conversation with the patient and his and daughter regarding intubation- the patient does not want chest compressions or defibrillation but will accept intubation if needed. His understands that if he is intubated, he may ultimately need a tracheostomy given his known severe COPD F/E/N: History of dysphagia Severe protein calorie malnutrition as evidenced by frailty and hypoalbuminemia * NPO while on bipap, consider starting trickle TFs via PEG in AM * Maintenance fluids * ICU electrolyte protocol ENDO: History of hypothyroidism * Continue home dose of synthroid ID: HCAP * As outlined above PROPHY: * PPI (patient is on omeprazole at home) * SCDs, SQH Overall: This patient is critically ill with acute hypoxic respiratory failure requiring non-invasive ventilation and severe sepsis secondary to HCAP. He requires ICU level of care. I have also requested a palliative care consultation as this is the patient's 3rd hospitalization in 3 months related to his COPD/ recurrent pneumonia and he will undoubtedly continue to have sequelae of both of these issues going forward. Counseling/ Coordination of Care: This patient is critically ill with impairment of one or more vital organ systems with a high probability of imminent or life-threatening deterioration. High-complexity medical decision making was required to support vital organ function and/ or prevent deterioration in the patient's condition. Total critical care time spent is 50 minutes giving full attention to this patient. This includes examining the patient, gathering history from someone other than the patient (i.e. chart review), discussing the patient's care with other providers, managing the patient's bipap settings, ordering and interpreting radiologic studies, ordering and interpreting laboratory values, and documentation. Amount of time is separate from teaching, counseling the patient and/or family, and exclusive of procedures. Code Status: DNR, accepts intubation (2) COPD (chronic obstructive pulmonary disease) Qualifiers: COPD type: unspecified COPD Qualified Code(s): J44.9 - Chronic obstructive pulmonary disease, unspecified (4) Malnutrition Qualifiers: Malnutrition type: protein-calorie malnutrition Protein-calorie malnutrition severity: moderate Qualified Code(s): E44.0 - Moderate protein-calorie malnutrition
[2018-06-27] MEDS ORDERED: Vancomycin Inj 750 MG in Sodium Chlor 0.9% Inj 250 ML IV.SIG ONE (19:00)
[2018-06-27 19:43] LABS: Bacteria,Urine Rare /hpf; Bilirubin,Urine Negative (Negative); Clarity,Urine Hazy (Clear); Color,Urine Yellow (Yellw/Straw); Glucose,Urine (UA) 50 mg/dL (Negative); Leukocyte Esterase,Urine Negative (Negative); Mucus,Urine Few /lpf (Occasional); Nitrite,Urine Negative (Negative); Specific Gravity,Urine 1.019 (1.002-1.035)
[2018-06-27] MEDS ORDERED: Sod Chloride 0.9% Inj 1,000 ML IV.SIG ONE (19:54)
[2018-06-27] MEDS: Sod Chloride 0.9% Inj 1,000 ML IV.CONT SCH (20:27)
[2018-06-27] MEDS: Piperacil/Tazo 3.375 GM Premix 3.375 GM/50 ML PIGGYBACK IV.SIG SCH (20:27)
[2018-06-27] MEDS: Senna/Docusate Sodium 8.6/50 MG Tablet PO SCH (22:25)
[2018-06-27] MEDS: dilTIAZem 60 MG Tablet NG/OG SCH (22:26)
[2018-06-27] MEDS: Heparin - SQ 10,000 UNITS/ML Vial SQ SCH (22:26)
[2018-06-27] MEDS: MethylPREDNISolone Sod Succinate Inj 125 MG/2 ML Vial IV.PUSH SCH (22:26)
[2018-06-28] MEDS: Chlorhexidine Gluconate 2% 1 Pack (2 Cloths) TOPICAL SCH (03:06)
[2018-06-28] MEDS: Piperacil/Tazo 3.375 GM Premix 3.375 GM/50 ML PIGGYBACK IV.SIG SCH ×4 (03:07→23:10)
[2018-06-28] MEDS ORDERED: Chlorhexidine Gluconate 2% 1 Pack (2 Cloths) TOPICAL PRN (04:00)
[2018-06-28 04:59] LABS: Baso % (Auto) 0.1 % (0.0-2.0); Hematocrit 29.8 % (39.0-51.0); Hemoglobin 10.5 gm/dL (13.0-17.0); Lymph # (Auto) 0.5 th/mm3 (1.0-4.8); Lymph % (Auto) 5.7 % (9.0-44.0); Mean Corpuscular HGB Conc 35.2 % (32.0-36.0); Mean Corpuscular Hemoglobin 29.6 pg (27.0-34.0); Mean Corpuscular Volume 83.9 fL (80.0-100.0); Mean Platelet Volume 10.5 fL (7.0-11.0); Mono # (Auto) 0.3 th/mm3 (0.0-0.9); Mono % (Auto) 3.9 % (0.0-8.0); Neut % (Auto) 90.3 % (16.0-70.0); Platelet Count 132 th/mm3 (150-450); Red Blood Count 3.56 mil/mm3 (4.50-5.90); Red Cell Distribution Width 20.9 % (11.6-17.2); White Blood Count 8.9 th/mm3 (4.0-11.0)
[2018-06-28 05:05] LABS: INR 1.1 Ratio; Prothrombin Time 10.7 sec (9.8-11.6)
[2018-06-28 05:31] LABS: Alanine Aminotransferase 35 U/L (12-78); Albumin 1.5 g/dL (3.4-5.0); Anion Gap 14 meq/L (5-15); Aspartate Aminotransferase 45 U/L (15-37); Blood Urea Nitrogen 26 mg/dL (7-18); Calcium 7.5 mg/dL (8.5-10.1); Carbon Dioxide 17.2 meq/L (21.0-32.0); Chloride 110 meq/L (98-107); Glomerular Filtration Rate 67 mL/min (>89); Glucose,Random 149 mg/dL (74-106); Magnesium 2.2 mg/dL (1.5-2.5); Phosphorus 2.2 mg/dL (2.5-4.9); Potassium 3.8 meq/L (3.5-5.1); Sodium 141 meq/L (136-145)
[2018-06-28] MEDS: MethylPREDNISolone Sod Succinate Inj 125 MG/2 ML Vial IV.PUSH SCH ×3 (05:32→21:41)
[2018-06-28] MEDS: Heparin - SQ 10,000 UNITS/ML Vial SQ SCH ×3 (05:33→21:41)
--- NOTE | 2018-06-28 05:36 | XR ---
EXAM DATE: 06/28/2018 5:28 AM EST AGE/SEX: 87 years / Male INDICATIONS: Short of breath. CLINICAL DATA: This is the patient's subsequent encounter. Patient reports that signs and symptoms h ave been present for 2 days and indicates a pain score of 0/10. MEDICAL/SURGICAL HISTORY: . Gastroesophageal reflux disease. Abdominal aortic aneurysm. Chronic pneumonia. Coronary artery disease. Essential hypertension. Gout. Atrial fibrillation. Hypothyroidis m. Osteoarthritis. Restless leg syndrome. . Cholecystectomy. Tonsillectomy. Coronary artery bypass g raft. Coronary artery stent placement COMPARISON: C, CHEST 1V SINGLE AP, 06/27/2018. . FINDINGS: There is persistent ill-defined airspace infiltrates in the mid and lower lungs bilaterally, slightly improved on the left side when compared to yesterday's exam: Portions of the left hemidiaphragm are now discernible. The upper lungs are clear. Evidence of median sternotomy and CABG. CONCLUSION: Persistent airspace infiltrates in the right lung and left lower lung with slight improvement in aera tion in the left lower lung. Electronically signed by: Regan Daugherty MD Board Certified Radiologist 06/28/2018 5:34 AM EST
[2018-06-28 05:38] LABS: Alkaline Phosphatase 109 U/L (45-117)
[2018-06-28 05:45] LABS: ABG Base Excess -8.2 mmol/L (-2-2); ABG PCO2 19 mmHg (38-42); ABG PO2 62 mmHG (61-120)
[2018-06-28] MEDS: Sod Chloride 0.9% Inj 1,000 ML IV.CONT SCH ×3 (06:31→21:20)
[2018-06-28] MEDS: Multivit/Folic Acid/Minerals Chewable Tablets CHEW SCH (08:07)
[2018-06-28] MEDS: dilTIAZem 60 MG Tablet NG/OG SCH (08:07)
[2018-06-28] MEDS: Senna/Docusate Sodium 8.6/50 MG Tablet PO SCH ×2 (08:07→19:59)
[2018-06-28] MEDS: Budesonide-Formoterol 80/4.5 MCG 6.9 GM Inhaler INH SCH (09:12)
--- NOTE | 2018-06-28 09:30 | P.PNCC ---
Subjective Subjective Remarks/Hospital Course: 87yM presenting from [facility] with shortness of breath and cough. The patient has a history of severe COPD and reports that he's been "congested" and coughing for the past 2-3 days, was unable to catch his breath earlier today so he presented to the ED via EMS. His initial pulse ox at that time was in the mid 80s. He admits to productive cough and chills, denies fever , chest pain, palpitations, nausea or vomiting. The patient's reports that the patient had a significant decline in his functional status after he was admitted in 04/2018, is now no longer ambulatory and resides in a rehab facility , unable to perform most ADLs independently. COPD history- on 3L O2 around the clock at home, uses nebulizers/ inhalers (including Symbicort), chronically on prednisone, multiple previous admissions for pneumonia (most recently in 04/2018 , admitted to ICU but not intubated), follows with Dr. Magaña of pulmonology. The patient also had a PEG tube placed on 06/20/[address] Vázquez of for dysphagia and recurrent aspiration. SUBJ 06/28/18: Critically ill male lying in bed on BiPAP. Chest x-ray shows persistent bilateral infiltrates indicating pneumonia. He is hypotensive systolic blood pressure in the 80s map 55-60. I have ordered additional 1 L fluid bolus. His clinical worsening most likely secondary to sepsis/shock Objective Vital Signs / I&O: Vital Signs 06/27/18 16:45 06/27/18 16:54 06/27/18 17:36 Temperature 99.8 F H Pulse Rate 114 H Respiratory Rate 36 H Blood Pressure 134/61 Pulse Oximetry 84 L 95 96 06/27/18 18:52 06/27/18 18:59 06/27/18 19:00 Temperature Pulse Rate 123 H 114 H Respiratory Rate 40 H 36 H Blood Pressure 120/60 Pulse Oximetry 95 96 06/27/18 19:31 06/27/18 20:02 06/27/18 20:09 Temperature Pulse Rate 125 H 122 H Respiratory Rate 41 H Blood Pressure 122/62 Pulse Oximetry 94 L 98 06/27/18 20:15 06/27/18 20:30 06/27/18 21:00 Temperature 97.8 F Pulse Rate 126 H 120 H 113 H Respiratory Rate 81 H 52 H 36 H Blood Pressure 127/70 111/57 L 94/50 L Pulse Oximetry 90 L 93 L 94 L 06/27/18 21:30 06/27/18 22:00 06/27/18 22:30 Temperature Pulse Rate 112 H 115 H 113 H Respiratory Rate 44 H 79 H 46 H Blood Pressure 102/57 L 122/66 109/57 L Pulse Oximetry 98 96 94 L 06/27/18 23:00 06/27/18 23:12 06/27/18 23:13 Temperature Pulse Rate 109 H 101 H Respiratory Rate 31 H 35 H Blood Pressure 115/61 Pulse Oximetry 97 96 06/27/18 23:30 06/28/18 00:00 06/28/18 00:30 Temperature 97.1 F L Pulse Rate 97 H 92 H 84 Respiratory Rate 38 H 32 H 28 H Blood Pressure 102/52 L 101/53 L 94/50 L Pulse Oximetry 95 94 L 95 06/28/18 01:00 06/28/18 01:30 06/28/18 02:00 Temperature Pulse Rate 82 82 80 Respiratory Rate 28 H 41 H 24 Blood Pressure 94/51 L 97/56 L 100/53 L Pulse Oximetry 95 97 96 06/28/18 02:30 06/28/18 03:00 06/28/18 03:52 Temperature Pulse Rate 81 81 86 Respiratory Rate 28 H 24 Blood Pressure 100/54 L 107/58 L Pulse Oximetry 97 97 06/28/18 03:53 06/28/18 04:00 06/28/18 05:00 Temperature 97.5 F L Pulse Rate 82 87 Respiratory Rate 35 H 27 H Blood Pressure 101/54 L 96/52 L Pulse Oximetry 97 97 95 06/28/18 06:00 06/28/18 07:00 06/28/18 08:00 Temperature 96.8 F L Pulse Rate 87 85 80 Respiratory Rate 31 H 59 H 26 H Blood Pressure 97/54 L 100/52 L 104/55 L Pulse Oximetry 96 97 100 06/28/18 08:31 06/28/18 08:39 Temperature Pulse Rate 80 Respiratory Rate 32 H Blood Pressure Pulse Oximetry 97 92 L Intake & Output 06/27/18 06/28/18 06/28/18 18:59 06:59 18:59 Intake Total 100 / 100 3957.5 / 3957.5 Output Total 600 / 600 Balance 100 / 100 3357.5 / 3357.5 Weight 61.235 kg 62 kg Intake: IV 100 / 100 3957.5 / 3957.5 NS Inj 1,000 ML @ 84 mls/hr IV. 1000 / 1000 CONT .[id number] [facility] Rx#:[id number] Azithromycin Inj 500 MG In NS 250 / 250 Inj 250 ML @ 250 mls/hr IV.SIG STAT STA Rx#:[id number] Maxipime Inj 2,000 MG In NS Inj 100 / 100 100 ML @ 200 mls/hr IV.SIG STAT STA Rx#:[id number] Magnesium Sulfate Inj 2 GM In 100 / 100 NS Inj 96 ML @ 50 mls/hr IV.SIG ONCE ONE Rx#:[id number] Zosyn 3.375 GM Premix 3.375 gm 100 / 100 In 50 ml @ 100 mls/hr IV.SIG Q8H [facility] Rx#:[id number] NS Inj 1,000 ML @ Wide Open IV. 1999 / 1999 SIG BOLUS ONE Rx#:[id number] Vancomycin Inj 1,000 MG In NS 250 / 250 Inj 250 ML @ 250 mls/hr IV.SIG ONCE ONE Rx#:[id number] Vancomycin Inj 750 MG In NS Inj 257.5 / 257.5 250 ML @ 250 mls/hr IV.SIG ONCE ONE Rx#:[id number] Oral 0 / 0 Output: Urine 600 / 600 Other: # Bowel Movements 0 Result Diagrams: 06/28/18 03:45 06/28/18 03:45 Objective Remarks: GEN: Frail-appearing critically ill elderly male lying in bed, on bipap, moderate respiratory distress HEENT: NCAT, PERRL NECK: Trachea midline CARDIO: Tachy, irregular. Currently hypotensive with map 55-60 RESP: Tachypneic, increased work of breathing, able to speak, O2 sats high 90s on bipap, diminished breath sounds with prolonged expiratory phase bilaterally. Bibasilar crackles heard ABD/GI: PEG tube in place, site clean/ dry/ intact, abdomen soft and non-tender EXT/MSK: No peripheral edema SKIN: Warm and well-perfused, stage 1 sacral decubitus NEURO: Alert awake, answers questions appropriately, no focal neuro deficits Assessment and Plan - Assessment and Plan Plan: 87yM presenting with COPD exacerbation, septic shock secondary to HCAP, acute hypoxic respiratory failure requiring bipap. Last lactic acid was 8.3, clinically worsening with worsening hypotension will give additional 2 L bolus will need pressor support. NEURO: History of restless leg syndrome * PRN tylenol for pain, delirium precautions * Continue home dose of requip CARDIO: Septic shock Currently in septic shock, addition to liter fluid bolus continue maintenance fluid Levophed if needed to keep map above 60 History of essential hypertension, atrial fibrillation, coronary artery disease * Continue home dose of aspirin, pravastatin, hold Cardizem * Rate control if needed with IV Cardizem RESP: Severe sepsis secondary to healthcare associated pneumonia COPD with acute exacerbation Acute hypoxic respiratory failure requiring non-invasive ventilation * Continue bipap, repeat ABG as needed * Continue scheduled and PRN nebs * Continue steroids Solu-Medrol 60 mg IV every 8 hours * Received 1 dose of IV magnesium as well * Treat for recurrent HCAP with azithromycin, zosyn, vancomycin * Trend lactic acid until clear * F/U urine legionella * Follow up cultures and MRSA swab * Dr. Marie had a long conversation with patient and his and daughter regarding intubation- the patient does not want chest compressions or defibrillation but will accept intubation if needed. His understands that if he is intubated, he may ultimately need a tracheostomy given severe COPD F/E/N: History of dysphagia Severe protein calorie malnutrition as evidenced by frailty and hypoalbuminemia * NPO while on bipap, consider starting trickle TFs via PEG once respiratory status is improved * Maintenance fluids * ICU electrolyte protocol ENDO: History of hypothyroidism * Continue home dose of Synthroid ID: HCAP * As outlined above. Follow-up on cultures, continue azithromycin Zosyn and vancomycin PROPHY: * PPI (patient is on omeprazole at home) * SCDs, SQH Overall: This patient is critically ill with acute hypoxic respiratory failure requiring non-invasive ventilation and severe sepsis secondary to HCAP. He requires ICU level of care. I have also requested a palliative care consultation as this is the patient's 3rd hospitalization in 3 months related to his COPD/ recurrent pneumonia and he will undoubtedly continue to have sequelae of both of these issues going forward. Counseling/ Coordination of Care: This patient is critically ill with impairment of one or more vital organ systems with a high probability of imminent or life-threatening deterioration. High-complexity medical decision making was required to support vital organ function and/ or prevent deterioration in the patient's condition. Total critical care time spent is 45 minutes giving full attention to this patient. This includes examining the patient, gathering history from someone other than the patient (i.e. chart review), discussing the patient's care with other providers, managing the patient's bipap settings, ordering and interpreting radiologic studies, ordering and interpreting laboratory values, and documentation. Amount of time is separate from teaching, counseling the patient and/or family, and exclusive of procedures. Code Status: ALT CODE
[2018-06-28] MEDS: Sod Chloride 0.9% Inj 1,000 ML IV.SIG ONE ×2 (09:41→10:10)
[2018-06-28] MEDS: Potassium Phosphate 500 MG Soluble Tablet PO PRN ×2 (09:41→14:22)
[2018-06-28] MEDS: Sod Chloride 0.9% Inj 1,000 ML IV.SIG SCH ×2 (10:00→10:30)
[2018-06-28] MEDS ORDERED: Sodium Chlor 0.9% Inj 500 ML IV.SIG ONE (12:30)
[2018-06-28] MEDS ORDERED: Lidocaine 1% Inj 50 ML Vial ONE (13:23)
--- NOTE | 2018-06-28 13:38 | P.PCN ---
Date of procedure: 06/28/18 Pre-op diagnosis: Septic shock Post-op diagnosis: same Procedure: US guided right IJ central line Central line checklist completed, timeout completed. I wore a surgical cap, mask with protective eyewear, full gown and sterile gloves throughout the procedure. Right neck region was prepped using chlorhexidine scrub and draped in sterile fashion. The right IJ was identified using the ultrasound. Anesthesia was achieved over the vein using 1% lidocaine. The introducer needle was inserted into the right IJ under direct ultrasound visualization. Venous blood was withdrawn. The syringe was removed and a guidewire was advanced into the introducer needle. A small incision was made at the skin surface with a scalpel and the introducer needle was exchanged for a dilator over the guidewire. After appropriate dilation was obtained, the dilator was exchanged over the wire for a triple lumen, 7F, antibiotic coated central venous catheter. The wire was removed and the catheter was secured in place at 17 cm with a StatLock. A sterile central line dressing was placed over the catheter at the insertion site. The patient tolerated the procedure without any hemodynamic compromise. At time of procedure completion, all ports aspirated and flushed properly. Post-procedure chest x-ray is pending at this time. Anesthesia: local Surgeon: Brenton Antunez Estimated blood loss (mL): 1 Pathology: none sent Condition: critical Disposition: ICU
--- NOTE | 2018-06-28 14:44 | P.CONPAL ---
Consult Service: Palliative Care Requesting Physician: Hoa Marie Reason for Consult: a. To assist with evaluation and management of symptoms including: Dyspnea, dysphasia b. To assist medical decision maker(s) with: better understanding of current medical conditions; weighing benefits/burdens of medical treatment options; making medical treatment decisions. Primary Care Provider: Jem Kaufman MD History of Present Illness History of Present Illness: This is an 87-year-old male with a history of severe COPD, dysphasia, recurrent pneumonia, coronary artery disease, PAF and failure to thrive who was seen by palliative care 05/13/18 and was discharged to [facility] rehab after declining a hospice admission. He presented back to the ED 06/18/2018 with a complaint of dyspnea and dysphasia requesting PEG tube placement. PEG tube was placed 06/20/[address] Vázquez. He was discharged back to [facility] rehab 06/21. He again presented to the emergency room 6 days later on 06/27 for dyspnea, bilateral pneumonia and chronic cough. Diagnostic data on admission * WBC 15.4, hemoglobin 11.4, hematocrit 32.2, platelets 192, sodium 135, potassium 4.0, BUN 29, creatinine 1.38, glucose 169, calcium 8.3, lactic acid 8.3, magnesium 1.7, total bilirubin 0.5, AST 27, ALT 49, alk phos 124, troponin 0 0.10, albumin 1.8. * ABG showed pH 7.52, PCO2 18, PaO2 59, HCO3 14, base excess -8.0 on 15 L nonrebreather mask, saturation 91% * Electrocardiogram shows sinus tachycardia with occasional supraventricular premature complexes, ST deviation and moderate T wave abnormality, consider lateral ischemia. * Chest x-ray shows bibasilar airspace disease. He is seen in the intensive care unit with his at bedside. She relates a recurrent history relating to his trajectory of decline with vacillating health status from feeling great and improving to doing poorly and requiring hospitalization the next day. He had been in [facility] after his PEG tube placement for rehab and on Monday 06/25 was doing very well and by 06/27 was experiencing respiratory compromise requiring rehospitalization. His son and [id number], who are both respiratory therapists, arrived and requested palliative consultation for detailed clinical review to assist in decision- making. The patient had been on BiPAP overnight but became agitated and required conversion to a 100% nonrebreather mask. At this evaluation he remains on the mask but is demonstrating some agitation, pulling the mask off, saying he could not talk with it on. He is fidgety and demonstrating mild agitation. 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 Social alcohol use. No history of prescription or illicit drug use. Family history Significant for heart disease in half sister. Mother at 81 from natural causes. Father is estranged. Function/Cognitive Trajectory: According to the , since the patient's admission in April 2018, he is no longer ambulatory and resides in a half-way facility, unable to perform most ADLs independently. Since May 08 he has spent 2 weeks at home, the remainder of his time being either in the hospital or in rehab. During his time at home, his states that he required assistance ambulating to the bathroom, getting bathed, and feeding himself. . Review of Systems Patient is minimally verbal and unable to provide their own ROS. A 12 part ROS taken as best as possible from medical record and available family. Constitutional: Reports weakness, Reports weight loss Ears, Nose, Mouth, and Throat: Reports abnormal hearing, Reports difficulty swallowing Respiratory: Reports shortness of breath Neurologic: Reports restless legs PMFSH - History History 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, Family Member, 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 - Medical History Medical History: Medical History (Last Reviewed 06/30/18 @ 13:36 by Svetlana Cleveland MD) Abdominal aortic aneurysm Abnormality of gait due to impairment of balance Atherosclerotic heart disease Chronic pain Chronic pneumonia Coronary artery disease Essential hypertension Failure to thrive Gastroesophageal reflux disease Gout History of atrial fibrillation History of cataract Hyperlipidemia Hypothyroidism Osteoarthritis Pneumonia Protein calorie malnutrition Restless leg syndrome - Surgical History Surgical History: Surgical History (Last Reviewed 06/30/18 @ 13:36 by Svetlana Cleveland MD) Gastrostomy in place History of cholecystectomy History of coronary artery bypass graft History of coronary artery stent placement History of tonsillectomy - Family History Family History: Family History (Last Reviewed 06/30/18 @ 13:36 by Svetlana Cleveland MD) Other Family history of coronary artery disease Family history pertaining to father Patient's mother is - Tobacco History Second Hand Smoke Exposure: No Smoking Status: Former smoker Tobacco Type: Cigarettes - Alcohol History How Often Do You Have a Drink Containing Alcohol: Never - Substance Use History Substance History: No History of Abuse - Travel History Recent Travel in the [place] Within the Last 8 Weeks: No Recent Travel Out of the Country Within the Last 8 Weeks: No - Immunization History Tetanus Immunization: Unsure Hx Influenza Vaccine This Season: No Medications and Allergies Active Medications: Active Medications Acetaminophen (Tylenol) 650 mg PO Q6H PRN PRN Reason: PAIN 1-10 AND/OR FEVER >101F Al Hydroxide/Mg Hydroxide (Milk Of Magnxiao Liq) 30 ml PO Q12H PRN PRN Reason: Mild Constipation Albuterol (Duoneb Neb (Prn)) 1 ampul NEB Q2HR NEB PRN PRN Reason: WHEEZING Albuterol (Duoneb Neb (Vidya)) 1 ampul NEB Q4HR NEB [facility] Last Admin: 06/28/18 11:01 Dose: 1 ampul Aspirin (Aspirin Chew) 81 mg G-TUBE DAILY [facility] Last Admin: 06/28/18 08:07 Dose: 81 mg Bisacodyl (Dulcolax Supp) 10 mg RECTAL DAILY PRN PRN Reason: SEVERE CONSITIPATION Budesonide/Formoterol Fumarate (Symbicort 80/4.5 Mcg Inh) 1 puff INH DAILY [facility] Last Admin: 06/28/18 09:12 Dose: 1 puff Chlorhexidine Gluconate (Chlorhexidine 2% Cloth) 3 pack TOPICAL DAILY@0400 [facility] Stop: 07/03/18 03:59 Last Admin: 06/28/18 03:06 Dose: 3 pack Chlorhexidine Gluconate (Chlorhexidine 2% Cloth) 3 pack TOPICAL DAILY@0400 PRN PRN Reason: Extra cloth needed Stop: 07/03/18 03:59 Diltiazem HCl (Cardizem) 120 mg NG/OG DAILY [facility] Last Admin: 06/28/18 08:07 Dose: 120 mg Heparin Sodium (Porcine) (Heparin Inj) 5,000 units SQ Q8H [facility] Last Admin: 06/28/18 05:33 Dose: 5,000 units Magnesium Sulfate 4 gm/ Sodium (Chloride) 100 mls @ 50 mls/hr IV.SIG UNSCH PRN PRN Reason: For Magnesium 0.9 - 1.1 mg/dL Magnesium Sulfate 2 gm/ Sodium (Chloride) 100 mls @ 50 mls/hr IV.SIG UNSCH PRN PRN Reason: For Magnesium 1.2 - 1.6 mg/dL Sodium Chloride (Ns Inj) 1,000 mls @ 84 mls/hr IV.CONT .[id number] VIDYA Last Admin: 06/28/18 11:35 Dose: 84 mls/hr Potassium Chloride (Kcl 40 Meq Premix Inj) 40 meq in 100 mls @ 25 mls/hr IV.SIG Q2H PRN PRN Reason: For Potassium 2.8 - 3.2 mEq/L Potassium Chloride (Kcl 20 Meq Premix Inj) 20 meq in 100 mls @ 50 mls/hr IV.SIG Q2H PRN PRN Reason: For Potassium 3.3 - 3.5 mEq/L Potassium Chloride (Kcl 40 Meq Premix Inj) 40 meq in 100 mls @ 25 mls/hr IV.SIG UNSCH PRN PRN Reason: For Potassium 3.3 - 3.5 mEq/L Potassium Phosphate 30 mmol/ (Sodium Chloride) 260 mls @ 42 mls/hr IV.SIG UNSCH PRN PRN Reason: SEE LABEL COMMENTS Potassium Chloride (Kcl 20 Meq Premix Inj) 20 meq in 100 mls @ 50 mls/hr IV.SIG Q2H PRN PRN Reason: For Potassium 2.8 - 3.2 mEq/L Sodium Phosphate 30 mmol/ (Sodium Chloride) 260 mls @ 42 mls/hr IV.SIG UNSCH PRN PRN Reason: For Phosphorus < 2.5 mg/dL Azithromycin 500 mg/ Sodium (Chloride) 250 mls @ 250 mls/hr IV.SIG Q24H VIDYA Norepinephrine Bitartrate (Levophed-Dextrose 4 Mg/250 Ml Drip) 4 mg in 250 mls @ 7.5 mls/hr IV.SIG TITRATE PRN; Protocol PRN Reason: Per Protocol Piperacillin/Tazobactam/Dextrose (Zosyn 3.375 Gm Premix) 3.375 gm in 50 mls @ 100 mls/hr IV.SIG Q6H VIDYA Last Infusion: 06/28/18 11:00 Dose: Infused Vancomycin HCl 1,000 mg/ (Sodium Chloride) 250 mls @ 250 mls/hr IV.SIG Q24H [facility] Lactulose (Lactulose Liq) 30 ml PO DAILY PRN PRN Reason: SEVERE CONSITIPATION Lansoprazole (Prevacid Solutab) 30 mg NG/OG DAILY [facility] Last Admin: 06/28/18 08:07 Dose: 30 mg Levothyroxine Sodium (Synthroid) 25 mcg G-TUBE DAILY@0600 [facility] Last Admin: 06/28/18 05:33 Dose: 25 mcg Lorazepam (Ativan Inj) 1 mg IV.PUSH NOW ONE Stop: 06/28/18 14:31 Magnesium Oxide (Mag-Ox) 800 mg PO UNSCH PRN PRN Reason: For Magnesium 1.2 - 1.6 mg/dL Methylprednisolone Sodium Succinate (Solumedrol Inj) 60 mg IV.PUSH Q8HR [facility] Last Admin: 06/28/18 05:32 Dose: 60 mg Miscellaneous Information ([facility] Ordered Lab Info) 0 each OTHER ONCE ONE Stop: 06/30/18 21:46 Multivitamins/Folic Acid/Vitamin C (Flintstones) 1 tab CHEW DAILY [facility] Last Admin: 06/28/18 08:07 Dose: 1 tab Ondansetron HCl (Zofran Inj) 4 mg IV.PUSH Q6H PRN PRN Reason: NAUSEA OR VOMITING Pharmacy Profile Note (Vancomycin Consult Pharmacy) 1 each OTHER UNSCH PRN PRN Reason: Pharmacy to dose Potassium Bicarb/Potassium Chloride (K-Lyte Cl Eff) 50 meq PO UNSCH PRN PRN Reason: For Potassium 3.3 - 3.5 mEq/L Potassium Phosphate (K-Phos Original) 2,000 mg PO Q4H PRN PRN Reason: Phosphorus Less Than 2.5 mg/dL Last Admin: 06/28/18 09:41 Dose: 2,000 mg Potassium Phosphate (K-Phos Original) 2,000 mg PO UNSCH PRN PRN Reason: SEE LABEL COMMENTS Pravastatin Sodium (Pravachol) 80 mg G-TUBE DAILY [facility] Last Admin: 06/28/18 08:07 Dose: 80 mg Ropinirole HCl (Requip) 0.5 mg G-TUBE HS [facility] Last Admin: 06/28/18 00:26 Dose: 0.5 mg Senna/Docusate Sodium (Marianela-Colace) 1 tab PO BID [facility] Last Admin: 06/28/18 08:07 Dose: 1 tab Sennosides (Senokot) 17.2 mg PO Q12H PRN PRN Reason: Moderate Constipation Sodium Chloride (Ns Flush) 2 ml IV.FLUSH BID [facility] Last Admin: 06/28/18 08:08 Dose: 2 ml Sodium Chloride (Ns Flush) 2 ml IV.FLUSH PRN PRN PRN Reason: FLUSH AFTER USING IV ACCESS Terbutaline Sulfate (Brethine Inj) 1 mg SQ UNSCH PRN PRN Reason: For Extravasation Allergies Allergy/AdvReac Type Severity Reaction Status Date / Time peanut oil Allergy Severe Diarrhea Verified 06/18/18 18:41 peanut Allergy Intermediate Diarrhea Verified 06/18/18 18:41 Home Medications Medication Instructions Recorded Confirmed Type aspirin [Aspir-81] 81 mg FEEDING TUBE DAILY 05/08/18 06/27/18 History cholecalciferol (vitamin D3) 1,000 unit FEEDING TUBE DAILY 05/08/18 06/27/18 History [Vitamin D3] levothyroxine 25 mcg FEEDING TUBE DAILY 05/08/18 06/27/18 History pravastatin 80 mg FEEDING TUBE DAILY 05/08/18 06/27/18 History ropinirole 0.5 mg FEEDING TUBE HS 05/08/18 06/27/18 History albuterol sulfate 0.63 mg INHALATION Q2H PRN 06/27/18 06/27/18 History budesonide-formoterol [Symbicort] 1 puff INHALATION DAILY 06/27/18 06/27/18 History diltiazem HCl 120 mg FEEDING TUBE DAILY 06/27/18 06/27/18 History ipratropium-albuterol 1 amp NEB Q4H 06/27/18 06/27/18 History levofloxacin 750 mg FEEDING TUBE DAILY 06/27/18 06/27/18 History magnesium citrate [Citroma] 296 ml FEEDING TUBE DAILY PRN 06/27/18 06/27/18 History omeprazole 40 mg DAILY 06/27/18 06/27/18 History prednisone 20 mg FEEDING TUBE DIRECTED 06/27/18 06/27/18 History Advance Directives Living Will: Yes Physical Exam Vital Signs: Vital Signs - 24 hr 06/27/18 16:45 06/27/18 16:54 06/27/18 17:36 Temperature 99.8 F H Pulse Rate 114 H Respiratory Rate 36 H Blood Pressure 134/61 Pulse Oximetry 84 L 95 96 06/27/18 18:52 06/27/18 18:59 06/27/18 19:00 Temperature Pulse Rate 123 H 114 H Respiratory Rate 40 H 36 H Blood Pressure 120/60 Pulse Oximetry 95 96 06/27/18 19:31 06/27/18 20:02 06/27/18 20:09 Temperature Pulse Rate 125 H 122 H Respiratory Rate 41 H Blood Pressure 122/62 Pulse Oximetry 94 L 98 06/27/18 20:15 06/27/18 20:30 06/27/18 21:00 Temperature 97.8 F Pulse Rate 126 H 120 H 113 H Respiratory Rate 81 H 52 H 36 H Blood Pressure 127/70 111/57 L 94/50 L Pulse Oximetry 90 L 93 L 94 L 06/27/18 21:30 06/27/18 22:00 06/27/18 22:30 Temperature Pulse Rate 112 H 115 H 113 H Respiratory Rate 44 H 79 H 46 H Blood Pressure 102/57 L 122/66 109/57 L Pulse Oximetry 98 96 94 L 06/27/18 23:00 06/27/18 23:12 06/27/18 23:13 Temperature Pulse Rate 109 H 101 H Respiratory Rate 31 H 35 H Blood Pressure 115/61 Pulse Oximetry 97 96 06/27/18 23:30 06/28/18 00:00 06/28/18 00:30 Temperature 97.1 F L Pulse Rate 97 H 92 H 84 Respiratory Rate 38 H 32 H 28 H Blood Pressure 102/52 L 101/53 L 94/50 L Pulse Oximetry 95 94 L 95 06/28/18 01:00 06/28/18 01:30 06/28/18 02:00 Temperature Pulse Rate 82 82 80 Respiratory Rate 28 H 41 H 24 Blood Pressure 94/51 L 97/56 L 100/53 L Pulse Oximetry 95 97 96 06/28/18 02:30 06/28/18 03:00 06/28/18 03:52 Temperature Pulse Rate 81 81 86 Respiratory Rate 28 H 24 Blood Pressure 100/54 L 107/58 L Pulse Oximetry 97 97 06/28/18 03:53 06/28/18 04:00 06/28/18 05:00 Temperature 97.5 F L Pulse Rate 82 87 Respiratory Rate 35 H 27 H Blood Pressure 101/54 L 96/52 L Pulse Oximetry 97 97 95 06/28/18 06:00 06/28/18 07:00 06/28/18 08:00 Temperature 96.8 F L Pulse Rate 87 85 80 Respiratory Rate 31 H 59 H 26 H Blood Pressure 97/54 L 100/52 L 104/55 L Pulse Oximetry 96 97 100 06/28/18 08:31 06/28/18 08:39 06/28/18 10:00 Temperature Pulse Rate 80 77 Respiratory Rate 32 H Blood Pressure Pulse Oximetry 97 92 L 06/28/18 10:15 06/28/18 10:20 06/28/18 10:25 Temperature Pulse Rate 75 75 76 Respiratory Rate 34 H 33 H 42 H Blood Pressure 86/48 L 86/49 L 86/48 L Pulse Oximetry 92 L 90 L 91 L 06/28/18 10:30 06/28/18 10:35 06/28/18 10:40 Temperature Pulse Rate 76 77 74 Respiratory Rate 32 H 35 H 35 H Blood Pressure 90/52 L 88/50 L 90/51 L Pulse Oximetry 89 L 90 L 92 L 06/28/18 10:45 06/28/18 10:50 06/28/18 10:55 Temperature Pulse Rate 75 74 72 Respiratory Rate 31 H 29 H 23 Blood Pressure 89/52 L 86/51 L 90/51 L Pulse Oximetry 89 L 96 99 06/28/18 10:59 06/28/18 11:00 06/28/18 11:06 Temperature Pulse Rate 75 77 84 Respiratory Rate 32 H 35 H 45 H Blood Pressure 83/48 L 103/48 L Pulse Oximetry 94 L 87 L 06/28/18 11:10 06/28/18 11:15 06/28/18 11:20 Temperature Pulse Rate 79 79 80 Respiratory Rate 33 H 36 H 32 H Blood Pressure 96/52 L 98/52 L 91/52 L Pulse Oximetry 87 L 87 L 89 L 06/28/18 11:25 06/28/18 11:30 06/28/18 11:35 Temperature Pulse Rate 79 78 79 Respiratory Rate 36 H 30 H 32 H Blood Pressure 90/52 L 90/52 L 90/52 L Pulse Oximetry 94 L 89 L 94 L 06/28/18 11:40 06/28/18 11:45 06/28/18 11:50 Temperature Pulse Rate 80 78 78 Respiratory Rate 31 H 34 H 28 H Blood Pressure 86/48 L 92/46 L 91/51 L Pulse Oximetry 91 L 94 L 93 L 06/28/18 11:55 06/28/18 12:00 06/28/18 12:05 Temperature 96.4 F L Pulse Rate 76 78 77 Respiratory Rate 31 H 30 H 24 Blood Pressure 85/48 L 89/49 L 88/51 L Pulse Oximetry 97 97 98 06/28/18 12:10 06/28/18 12:15 Temperature Pulse Rate 80 80 Respiratory Rate 25 H 33 H Blood Pressure 94/49 L 87/52 L Pulse Oximetry 96 94 L I&O: Intake & Output 06/26/18 06/27/18 06/28/18 06/29/18 06:59 06:59 06:59 06:59 Intake Total 4057.5 / 4057.5 3050 / 3050 Output Total 600 / 600 Balance 3457.5 / 3457.5 3050 / 3050 Weight 136 lb 10.986 oz Physical Exam: CONSTITUTIONAL/GENERAL: This is a thin elderly male patient, in no apparent distress. TUBES/LINES/DRAINS: Right IJ central line SKIN: No jaundice, rashes, or lesions. Ecchymoses on upper extremities. No wounds seen anteriorly. Skin temperature appropriate. Not diaphoretic. HEAD: Atraumatic. Normocephalic. EYES: Pupils equal and round and reactive. Extraocular motions intact. No scleral icterus. No injection or drainage. Fundi not examined. ENT: Hearing diminished. Nose without bleeding or purulent drainage. Throat without visible erythema, exudates, masses, or lesions. NECK: Trachea midline. Supple, nontender. No palpable thyroid enlargement or nodularity. CARDIOVASCULAR: Regular rate and rhythm without murmurs, gallops, or rubs. No JVD. Peripheral pulses symmetric. RESPIRATORY/CHEST: On 100% NRB mask, tachypneic, coarse respiratory sounds with scattered rhonchi and rare wheeze. GASTROINTESTINAL: Abdomen soft, non-tender, nondistended. No hepato-splenomegaly , or palpable masses. No guarding. Bowel sounds present. GENITOURINARY: Without palpable bladder distension. MUSCULOSKELETAL: Extremities without clubbing, cyanosis, or edema. No joint tenderness or effusion noted. No calf tenderness. No mottling or clubbing. LYMPHATICS: No palpable cervical or supraclavicular adenopathy. NEUROLOGICAL: Mildly lethargic, arousable, agitated easily, oriented to self, place. PSYCHIATRIC: Mild agitation with the mask, cooperative. . Diagnostic Tests Laboratory: Laboratory Results - last 72 hr 06/27/18 06/27/18 06/27/18 17:02 17:02 17:02 WBC 15.4 H RBC 3.83 L Hgb 11.4 L Hct 33.2 L MCV 86.6 MCH 29.8 MCHC 34.5 RDW 21.4 H Plt Count 192 MPV 11.0 Neut % (Auto) 91.0 H Lymph % (Auto) 4.2 L Andrews % (Auto) 4.8 Eos % (Auto) 0.0 Baso % (Auto) 0.0 Neut # (Auto) 14.0 H Lymph # (Auto) 0.6 L Andrews # (Auto) 0.7 Eos # (Auto) 0.0 Baso # (Auto) 0.0 WBC Differential . Differential Comment Auto diff final PT 10.6 INR 1.0 APTT 26.1 Puncture Site Patient Temperature O2 Saturation ABG pH ABG pCO2 ABG pO2 ABG HCO3 ABG O2 Content ABG Base Excess ABG Methemoglobin Hector Test Hemoglobin Carboxyhemoglobin O2 Delivery Device Liter Flow Inspired O2 Critical Value Sodium 135 L Potassium 4.0 Chloride 105 Carbon Dioxide 17.0 L Anion Gap 13 BUN 29 H Creatinine 1.38 H Estimated GFR 49 L Random Glucose 169 H Lactic Acid Calcium 8.3 L Calcium Adj for Albumin Phosphorus Magnesium 1.7 Total Bilirubin 0.5 AST 27 ALT 49 Alkaline Phosphatase 124 H Total Creatine Kinase 61 Troponin I 0.10 H B-Natriuretic Peptide Total Protein 6.7 Albumin 1.8 L Urine Color Urine Clarity Urine pH Ur Specific [place] Urine Protein Urine Glucose (UA) Urine Ketones Urine Occult Blood Urine Nitrate Urine Bilirubin Urine Urobilinogen Ur Leukocyte Esterase Urine RBC Urine WBC Urine Bacteria Urine Mucus Micro UA Comment Ur Microscopic Review Urine Culture Comments Nasal Screen MRSA (PCR) 06/27/18 06/27/18 06/27/18 17:02 17:02 17:02 WBC RBC Hgb Hct MCV MCH MCHC RDW Plt Count MPV Neut % (Auto) Lymph % (Auto) Andrews % (Auto) Eos % (Auto) Baso % (Auto) Neut # (Auto) Lymph # (Auto) Andrews # (Auto) Eos # (Auto) Baso # (Auto) WBC Differential Differential Comment PT INR APTT Puncture Site Patient Temperature O2 Saturation ABG pH ABG pCO2 ABG pO2 ABG HCO3 ABG O2 Content ABG Base Excess ABG Methemoglobin Hector Test Hemoglobin Carboxyhemoglobin O2 Delivery Device Liter Flow Inspired O2 Critical Value Sodium Cancelled Potassium Cancelled Chloride Cancelled Carbon Dioxide Cancelled Anion Gap Cancelled BUN Cancelled Creatinine Cancelled Estimated GFR Cancelled Random Glucose Cancelled Lactic Acid 8.3 H* Calcium Cancelled Calcium Adj for Albumin Cancelled Phosphorus Magnesium Cancelled Total Bilirubin Cancelled AST Cancelled ALT Cancelled Alkaline Phosphatase Cancelled Total Creatine Kinase Troponin I B-Natriuretic Peptide 458 H Total Protein Cancelled Albumin Cancelled Urine Color Urine Clarity Urine pH Ur Specific [place] Urine Protein Urine Glucose (UA) Urine Ketones Urine Occult Blood Urine Nitrate Urine Bilirubin Urine Urobilinogen Ur Leukocyte Esterase Urine RBC Urine WBC Urine Bacteria Urine Mucus Micro UA Comment Ur Microscopic Review Urine Culture Comments Nasal Screen MRSA (PCR) 06/27/18 06/27/18 06/27/18 17:10 19:16 21:30 WBC RBC Hgb Hct MCV MCH MCHC RDW Plt Count MPV Neut % (Auto) Lymph % (Auto) Andrews % (Auto) Eos % (Auto) Baso % (Auto) Neut # (Auto) Lymph # (Auto) Andrews # (Auto) Eos # (Auto) Baso # (Auto) WBC Differential Differential Comment PT INR APTT Puncture Site Right radial Patient Temperature 98.6 O2 Saturation 91 ABG pH 7.52 H* ABG pCO2 18 L* ABG pO2 59 L* ABG HCO3 14 L* ABG O2 Content 17.1 ABG Base Excess -8.0 L ABG Methemoglobin 0.5 Hector Test Present Hemoglobin 13.4 Carboxyhemoglobin 1.3 O2 Delivery Device Non-rebreathing mask Liter Flow 15.00 Inspired O2 100 Critical Value Yes Sodium Potassium Chloride Carbon Dioxide Anion Gap BUN Creatinine Estimated GFR Random Glucose Lactic Acid Calcium Calcium Adj for Albumin Phosphorus Magnesium Total Bilirubin AST ALT Alkaline Phosphatase Total Creatine Kinase Troponin I B-Natriuretic Peptide Total Protein Albumin Urine Color Yellow Urine Clarity Hazy H Urine pH 5.0 Ur Specific [place] 1.019 Urine Protein 30 H Urine Glucose (UA) 50 Urine Ketones Negative Urine Occult Blood Negative Urine Nitrate Negative Urine Bilirubin Negative Urine Urobilinogen Less than 2 Ur Leukocyte Esterase Negative Urine RBC Less than 1 Urine WBC Less than 1 Urine Bacteria Rare H Urine Mucus Few H Micro UA Comment Culture not ind Ur Microscopic Review Not Reportable Urine Culture Comments Culture not ind Nasal Screen MRSA (PCR) Not detected 06/28/18 06/28/18 06/28/18 03:45 03:45 03:45 WBC 8.9 RBC 3.56 L Hgb 10.5 L Hct 29.8 L MCV 83.9 MCH 29.6 MCHC 35.2 RDW 20.9 H Plt Count 132 L D MPV 10.5 Neut % (Auto) 90.3 H Lymph % (Auto) 5.7 L Andrews % (Auto) 3.9 Eos % (Auto) 0.0 Baso % (Auto) 0.1 Neut # (Auto) 8.0 H Lymph # (Auto) 0.5 L Andrews # (Auto) 0.3 Eos # (Auto) 0.0 Baso # (Auto) 0.0 WBC Differential . Differential Comment Auto diff final PT 10.7 INR 1.1 APTT Puncture Site Patient Temperature O2 Saturation ABG pH ABG pCO2 ABG pO2 ABG HCO3 ABG O2 Content ABG Base Excess ABG Methemoglobin Hector Test Hemoglobin Carboxyhemoglobin O2 Delivery Device Liter Flow Inspired O2 Critical Value Sodium 141 Potassium 3.8 Chloride 110 H Carbon Dioxide 17.2 L Anion Gap 14 BUN 26 H Creatinine 1.05 Estimated GFR 67 L Random Glucose 149 H Lactic Acid Calcium 7.5 L D Calcium Adj for Albumin Phosphorus 2.2 L Magnesium 2.2 Total Bilirubin 0.6 AST 45 H ALT 35 Alkaline Phosphatase 109 Total Creatine Kinase Troponin I B-Natriuretic Peptide Total Protein 6.0 L D Albumin 1.5 L Urine Color Urine Clarity Urine pH Ur Specific [place] Urine Protein Urine Glucose (UA) Urine Ketones Urine Occult Blood Urine Nitrate Urine Bilirubin Urine Urobilinogen Ur Leukocyte Esterase Urine RBC Urine WBC Urine Bacteria Urine Mucus Micro UA Comment Ur Microscopic Review Urine Culture Comments Nasal Screen MRSA (PCR) 06/28/18 06/28/18 05:34 10:19 WBC RBC Hgb Hct MCV MCH MCHC RDW Plt Count MPV Neut % (Auto) Lymph % (Auto) Andrews % (Auto) Eos % (Auto) Baso % (Auto) Neut # (Auto) Lymph # (Auto) Andrews # (Auto) Eos # (Auto) Baso # (Auto) WBC Differential Differential Comment PT INR APTT Puncture Site Right radial Patient Temperature 98.6 O2 Saturation 92 ABG pH 7.49 H ABG pCO2 19 L* ABG pO2 62 ABG HCO3 15 L* ABG O2 Content 12.8 ABG Base Excess -8.2 L ABG Methemoglobin 1.2 Hector Test Present Hemoglobin 9.9 L Carboxyhemoglobin 1.1 O2 Delivery Device Bipap 10/5/50% Liter Flow Inspired O2 50 Critical Value Yes Sodium Potassium Chloride Carbon Dioxide Anion Gap BUN Creatinine Estimated GFR Random Glucose Lactic Acid 2.4 H Calcium Calcium Adj for Albumin Phosphorus Magnesium Total Bilirubin AST ALT Alkaline Phosphatase Total Creatine Kinase Troponin I B-Natriuretic Peptide Total Protein Albumin Urine Color Urine Clarity Urine pH Ur Specific [place] Urine Protein Urine Glucose (UA) Urine Ketones Urine Occult Blood Urine Nitrate Urine Bilirubin Urine Urobilinogen Ur Leukocyte Esterase Urine RBC Urine WBC Urine Bacteria Urine Mucus Micro UA Comment Ur Microscopic Review Urine Culture Comments Nasal Screen MRSA (PCR) Result Diagrams: 07/01/18 04:45 07/02/18 09:35 Microbiology: Microbiology 06/27/18 17:02 Aerobic Blood Culture - Preliminary Blood - Peripheral Staphylococcus coag negative Anaerobic Blood Culture - Preliminary No growth in 1 day 06/27/18 17:07 Aerobic Blood Culture - Preliminary Blood - Peripheral gram positive cocci Anaerobic Blood Culture - Preliminary No growth in 1 day 06/27/18 19:16 Legionella Antigen - Final Urine - Clean Catch Urine Presumptive negative for Legionella pneumophila serogroup 1 antigen in urine, suggesting no recent or recurrent infection. Infection due to Legionella cannot be ruled out since other serogroups and species may cause disease, antigen may not be present in urine in early infection, and the level of antigen present in the urine may be below the detection limit of the test. Imaging: Chest X-Ray 06/27/18 16:52 CONCLUSION: 1. Bibasilar airspace disease. 2. Status post CABG. Chest X-Ray 06/28/18 06:00 CONCLUSION: Persistent airspace infiltrates in the right lung and left lower lung with slight improvement in aeration in the left lower lung. Chest X-Ray 06/28/18 13:42 CONCLUSION: 1. Right IJ central line in good position without pneumothorax. 2. Persistent bilateral airspace disease and likely associated pleural fluid, unchanged from earlier exam. Procedures: 06/28: Right subclavian central line placement. . Patient/Family Conference Present at Family Conference: Met with the patient's , son and [id number] in conference room. Reviewed clinical course, interventions attempted, patient's current clinical status, past medical, social, family, psychosocial history. Reviewed palliative care purpose and focus as well as the below listed items. Discussed CODE STATUS with the benefits and burdens of treatment. Both son and daughter- in-law are respiratory and fully aware of the benefits and burdens of intubation. Reviewed with the varying scenarios if respiratory failure occurs, to include possible medical extubation, tracheostomy placement with subsequent group home placement as well as compassionate withdrawal or comfort care without intubation. Family wished to discuss coming to a conclusion. Left family in conference room for further discussion and privacy. Provided palliative care contact information. All questions answered to the best of my ability. Family Conference Location: Consult Room Issues Discussed: * Palliative care role, purpose, approach * Additional medical, psychosocial, and spiritual history * Patients general health, functional status, and cognitive changes in the months leading up to the current hospitalization * Patient/family understanding of the current medical problems * Patient/family understanding of prognosis * Patients goals of care as best understood from advance directives and/or conversations and/or values * Current medical treatment options and benefits/burdens of those options * Likely scenarios comparing ongoing aggressive care with a transition to comfort measures only * Questions answered to the best of my ability * Palliative care contact information provided Assessment and Plan Pertinent Non-Medical Issues: Psychosocial: Currently residing at rehab/SNF at [facility]. His can no longer provide care for him at home. Pt and his have been for 66 years. They are originally from [place] and have been in [place] 20+ years. 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 he did serve in the [employer]. Spiritual: church. pastoral care available. Legal: Pt appears to be capacitated to make medical decisions although he does have some mild confusion that may or may not improve. In the even he is unable to make medical decisions, per [place] statutes proxy decision making would fall to his . recommend shared decision making Ethical issues impacting care:none Important Contacts: : Sagrario [phone] Prognosis: This is an 87 y/o male with hx recurrent PNA, CAD s/p CABG, TRICIA noncompliant with CPAP, COPD, aspiration PNA who presented 05/08 with weakness, respiratory failure, returned 06/17 for dyspnea and dysphasia requiring a PEG tube, then , 6 days after discharge from PEG tube placement. He has a trajectory of decline. He remains at risk for further setbacks and decline. It is unlikely he will return to 100% of his former baseline. His respiratory status may be barrier to full performance at rehab. He may be hospice appropriate should goals be in line with comfort. Code Status: Alternative Code (Okay for intubation) Plan: PLAN: Legal decision maker: At this time the patient is not capacitated for decision-making due to his hypoxia, pneumonia and agitation. It is uncertain whether he will regain that capacity. Per [place] statutes, his Sagrario, would be his healthcare proxy decision-maker. She is supported by her son and [id number] Goals: To be determined. CODE STATUS: Alternative code, intubation only. SYMPTOMS: * Dysphasia: Family states that his dysphasia started before his recurrent hospitalizations. He had seen his own aspiration during barium swallow which caused him to fear of eating. He requested the PEG tube as he continued to lose weight but family states they were unaware of the aspiration risk from the PEG tube. Family reports that he was seen to be lying nearly flat at rehab with tube feeding running, increasing the likelihood that this is aspiration pneumonia/pneumonitis. * Dyspnea: He is receiving antibiotics, steroids and inhalers. At this time he is significantly dyspneic, tachypneic at rest. He is currently on 100% nonrebreather mask, but is at significant risk of continued respiratory decline. After palliative care consultation, family is considering making him a full DO NOT RESUSCITATE, but wished to process the information and discuss with the patient's family prior to making that decision. Palliative care will continue to follow the patient during hospital course as condition evolves, to assist patient/decision-maker with understanding of their medical conditions, weighing benefits/burdens of treatment options, for clarification of goals of treatment. Additionally will assist with any symptoms of palliative concern. . Appreciation Thank you for the opportunity to participate in the care of Keith Oropeza. Attestation Attestation: To help prompt me to consider important information that might be impacting today's encounter and assessment, information from prior notes written by myself or my colleagues may have been "brought forward" into today's note. My signature on this note, however, is an attestation that I personally performed the exam, history, and/or decision-making noted today, and, unless otherwise indicated, the interactions with patient, family, and staff as well as the review of records all occurred today. I also attest that the listed assessment and stated plan reflect my best clinical judgment today based on the combination of historical information, prior notes, and today's exam/ interactions. When time spent is documented, it refers only to time spent today by the signer, or if indicated, combined time spent today by collaborating physician/nurse practitioner. .
--- NOTE | 2018-06-28 15:10 | XR ---
EXAM DATE: 06/28/2018 2:56 PM EST AGE/SEX: 87 years / Male INDICATIONS: Central line placement. CLINICAL DATA: This is the patient's subsequent encounter. Patient reports that signs and symptoms h ave been present for 1 day and indicates a pain score of 0/10. MEDICAL/SURGICAL HISTORY: . Gastroesophageal reflux disease. Abdominal aortic aneurysm. Chronic pneumonia. Coronary artery disease. Essential hypertension. Gout. Atrial fibrillation. Hypothyroidis m. Osteoarthritis. Restless leg syndrome. . Cholecystectomy. Tonsillectomy. Coronary artery bypass graft. Coronary artery stent placement COMPARISON: [facility] – [place], CHEST 1V SINGLE AP, 06/28/2018. . FINDINGS: Right IJ central line with tip likely in the proximal SVC. Redemonstration of hazy bilateral opacitie s extending to the mid to upper lung zones bilaterally. Cardiomediastinal contours are stable. Remain alexandra of exam is unchanged. CONCLUSION: 1. Right IJ central line in good position without pneumothorax. 2. Persistent bilateral airspace disease and likely associated pleural fluid, unchanged from earlier exam. Electronically signed by: Sean Aquino MD Board Certified Radiologist 06/28/2018 3:09 PM BRITNI Quinones
--- NOTE | 2018-06-28 17:10 | ECG ---
Date Performed: 06/27/2018 Time Performed: 17:58:01 PTAGE: 87 years EKG: SINUS TACHYCARDIA WITH OCCASIONAL SUPRAVENTRICULAR PREMATURE COMPLEXES ST DEVIATION AND MOD ERATE T-WAVE ABNORMALITY, CONSIDER LATERAL ISCHEMIA ABNORMAL ECG PREVIOUS TRACING : 06/19/2018 12.48 Since the previous tracing, no significant change noted DOCTOR: Pedro Cleveland Interpretating Date/Time 06/28/2018 17:07:52
[2018-06-28] MEDS: Azithromycin Inj 500 MG in Sodium Chlor 0.9% Inj 250 ML IV.SIG SCH (17:20)
[2018-06-28] MEDS ORDERED: Etomidate Inj 40 MG/20 ML Vial IV.PUSH ONE (17:31)
[2018-06-28] MEDS ORDERED: Midazolam Inj 5 MG/ML 1 ML Vial ONE (17:32)
--- NOTE | 2018-06-28 17:47 | P.PCN ---
Date of procedure: 06/28/18 Pre-op diagnosis: Acute hypoxemic resp failure Post-op diagnosis: same Procedure: PROCEDURE: Endotracheal intubation INDICATION: Acute hypoxemic respiratory failure DETAILS OF PROCEDURE: The patient was placed in optimal position and preoxygenated with 100% FiO2 via BiPAP initially and then via [id number]. Oximeter oxygen saturation of 88% was obtained prior to laryngoscopy. The patient was administered etomidate 20 mg IV and Versed 5 mg IV for sedation and rocuronium 50 mill grams IV. Laryngoscopy was performed with a DL #4 blade and a grade I Cormack-Lehane view was obtained, On single attempt, a size 8.0 endotracheal tube was visualized passing through the cords. Correct placement was confirmed with colorimetric CO2 detector. Breath sounds were equal bilaterally. No sounds auscultated over the stomach. The endotracheal tube was secured with a commercial tube kramer at a depth of 24 cm at the lips. The patient was connected to the ventilator. The patient tolerated the procedure well without any apparent complication. Oxygen saturations were maintained greater than 85% at all times. Stat chest x-ray was ordered. Anesthesia: GETA Surgeon: Brenton Antunez Estimated blood loss (mL): 0 Pathology: none sent Condition: critical Disposition: ICU
[2018-06-28] MEDS ORDERED: Propofol Inj 500 MG/50 ML Vial ONE (17:56)
[2018-06-28 18:10] LABS: ABG PCO2 38 mmHg (38-42); ABG PO2 119 mmHG (61-120)
[2018-06-28] MEDS: Propofol 1000 mg/100 ml Inj 1,000 MG/100 ML BOTTLE IV.CONT PRN ×2 (18:11→23:50)
--- NOTE | 2018-06-28 18:18 | XR ---
EXAM DATE: 06/28/2018 6:11 PM EST AGE/SEX: 87 years / Male INDICATIONS: Status post intubation. CLINICAL DATA: This is the patient's subsequent encounter. Patient reports that signs and symptoms h ave been present for 1 week and indicates a pain score of Nonresponsive. MEDICAL/SURGICAL HISTORY: . Gastroesophageal reflux disease. Abdominal aortic aneurysm. Chronic pneumonia. Coronary artery disease. Essential hypertension. Gout. Atrial fibrillation. Hypothyroidis m. Osteoarthritis. . Cholecystectomy. Tonsillectomy. Coronary artery bypass graft. Coronary artery s tent placement. COMPARISON: No prior exams available for comparison. FINDINGS: There is cardiomegaly and patchy bilateral consolidation. Small left effusion suspected. Sternotomy w ires are present. Endotracheal tube tip at the superior margin of the clavicles. There is mild gaseou s distention of small and large bowel. EKG leads overlie the chest. Right jugular line tip overlies t he SVC. CONCLUSION: Bilateral parenchymal consolidation. Electronically signed by: Bayron Pulliam MD Board Certified Radiologist 06/28/2018 6:16 PM EST
[2018-06-28] MEDS: Chlorhexidine 0.12% Oral Kit 15 ML UDC OROPHARYNG SCH (19:59)
[2018-06-28] MEDS: Famotidine PF Inj 20 MG/2 ML Vial IV.PUSH SCH (19:59)
[2018-06-28 21:19] LABS: Potassium 3.7 meq/L (3.5-5.1)
[2018-06-28 21:26] LABS: Phosphorus 4.7 mg/dL (2.5-4.9)
[2018-06-28] MEDS: Vancomycin Inj 1,000 MG in Sodium Chlor 0.9% Inj 250 ML IV.SIG SCH (21:41)
[2018-06-28] MEDS: Oral Hygiene Kit OROPHARYNG SCH (23:10)
[2018-06-29] MEDS: fentaNYL 10 mcg/mL Premix Drip 2,500 MCG/250 ML BAG IV.SIG PRN ×2 (00:24→17:42)
[2018-06-29] MEDS: Oral Hygiene Kit OROPHARYNG SCH ×3 (03:26→16:19)
[2018-06-29] MEDS: Chlorhexidine Gluconate 2% 1 Pack (2 Cloths) TOPICAL SCH (03:26)
[2018-06-29] MEDS: Piperacil/Tazo 3.375 GM Premix 3.375 GM/50 ML PIGGYBACK IV.SIG SCH ×4 (04:57→22:42)
--- NOTE | 2018-06-29 05:33 | XR ---
EXAM DATE: 06/29/2018 5:22 AM EST AGE/SEX: 87 years / Male INDICATIONS: Repsiratory disease. CLINICAL DATA: This is the patient's subsequent encounter. Patient reports that signs and symptoms h ave been present for 2 days and indicates a pain score of Nonresponsive. MEDICAL/SURGICAL HISTORY: Aneurysm, abdominal. Hypertension. Osteoarthritis. Coronary artery disease. A-Fib. GERD. COPD. Cholecystectomy. CABG. Coronary artery stent. COMPARISON: [facility] – [place], CHEST 1V SINGLE AP, 06/28/2018. . FINDINGS: A single AP view of the chest demonstrates improving densities. Minimal residual airspace disease in the lung bases. Cardiomegaly and CABG. Endotracheal tube and right jugular line are stable position. The cardiomediastinal contours are unremarkable. Osseous structures are intact. CONCLUSION: Improving bibasilar airspace disease. Electronically signed by: Nikolay Figueroa MD Board Certified Radiologist 06/29/2018 5:32 AM EST
[2018-06-29 05:36] LABS: Hematocrit 27.6 % (39.0-51.0); Hemoglobin 9.4 gm/dL (13.0-17.0); Mean Corpuscular HGB Conc 33.8 % (32.0-36.0); Mean Corpuscular Volume 85.6 fL (80.0-100.0); Mean Platelet Volume 10.6 fL (7.0-11.0); Platelet Count 354 th/mm3 (150-450); Red Blood Count 3.23 mil/mm3 (4.50-5.90); Red Cell Distribution Width 21.8 % (11.6-17.2); White Blood Count 21.9 th/mm3 (4.0-11.0)
[2018-06-29] MEDS: MethylPREDNISolone Sod Succinate Inj 125 MG/2 ML Vial IV.PUSH SCH ×3 (05:46→21:19)
[2018-06-29] MEDS: Heparin - SQ 10,000 UNITS/ML Vial SQ SCH ×3 (05:46→21:19)
[2018-06-29 06:02] LABS: Albumin 1.5 g/dL (3.4-5.0); Anion Gap 11 meq/L (5-15); Aspartate Aminotransferase 38 U/L (15-37); Blood Urea Nitrogen 28 mg/dL (7-18); Calcium 7.5 mg/dL (8.5-10.1); Carbon Dioxide 16.5 meq/L (21.0-32.0); Chloride 114 meq/L (98-107); Glomerular Filtration Rate 64 mL/min (>89); Glucose,Random 165 mg/dL (74-106); Magnesium 2.2 mg/dL (1.5-2.5); Potassium 3.6 meq/L (3.5-5.1); Sodium 141 meq/L (136-145)
[2018-06-29 06:03] LABS: Alanine Aminotransferase 40 U/L (12-78)
[2018-06-29 06:05] LABS: ABG Base Excess -8.9 mmol/L (-2-2); ABG PCO2 28 mmHg (38-42); ABG PO2 87 mmHG (61-120)
[2018-06-29 06:06] LABS: Alkaline Phosphatase 115 U/L (45-117); Total Protein 5.8 g/dL (6.4-8.2)
[2018-06-29] MEDS: Chlorhexidine 0.12% Oral Kit 15 ML UDC OROPHARYNG SCH ×2 (07:22→19:32)
[2018-06-29] MEDS: Senna/Docusate Sodium 8.6/50 MG Tablet PO SCH ×2 (08:15→20:05)
[2018-06-29] MEDS: Multivit/Folic Acid/Minerals Chewable Tablets CHEW SCH (08:15)
[2018-06-29] MEDS: Famotidine PF Inj 20 MG/2 ML Vial IV.PUSH SCH ×2 (08:23→20:05)
[2018-06-29] MEDS ORDERED: Midazolam 100 MG/100 ML Inj 100 MG/100 ML BAG IV.CONT PRN (08:39)
--- NOTE | 2018-06-29 08:47 | P.PNCC ---
Subjective Subjective Remarks/Hospital Course: 87yM presenting from [facility] with shortness of breath and cough. The patient has a history of severe COPD and reports that he's been "congested" and coughing for the past 2-3 days, was unable to catch his breath earlier today so he presented to the ED via EMS. His initial pulse ox at that time was in the mid 80s. He admits to productive cough and chills, denies fever , chest pain, palpitations, nausea or vomiting. The patient's reports that the patient had a significant decline in his functional status after he was admitted in 04/2018, is now no longer ambulatory and resides in a rehab facility , unable to perform most ADLs independently. COPD history- on 3L O2 around the clock at home, uses nebulizers/ inhalers (including Symbicort), chronically on prednisone, multiple previous admissions for pneumonia (most recently in 04/2018 , admitted to ICU but not intubated), follows with Dr. Magaña of pulmonology. The patient also had a PEG tube placed on 06/20/[address] Vázquez of for dysphagia and recurrent aspiration. SUBJ 06/28/18: Critically ill male lying in bed on BiPAP. Chest x-ray shows persistent bilateral infiltrates indicating pneumonia. He is hypotensive systolic blood pressure in the 80s map 55-60. I have ordered additional 1 L fluid bolus. His clinical worsening most likely secondary to sepsis/shock 06/29/18: Patient remains intubated sedated. Was intubated yesterday for worsening hypoxemic respiratory failure and worsening septic shock. Currently on 11 mcg/min of Levophed. However oxygenation has improved. Chest x-ray shows improving but persistent left more than right basilar infiltrates. Sputum culture is pending at this. Developed A. fib with RVR will receive his Cardizem but at 30 mg every 6 hours dosing Objective Vital Signs / I&O: Vital Signs 06/28/18 10:00 06/28/18 10:15 06/28/18 10:20 Temperature Pulse Rate 77 75 75 Respiratory Rate 34 H 33 H Blood Pressure 86/48 L 86/49 L Pulse Oximetry 92 L 90 L 06/28/18 10:25 06/28/18 10:30 06/28/18 10:35 Temperature Pulse Rate 76 76 77 Respiratory Rate 42 H 32 H 35 H Blood Pressure 86/48 L 90/52 L 88/50 L Pulse Oximetry 91 L 89 L 90 L 06/28/18 10:40 06/28/18 10:45 06/28/18 10:50 Temperature Pulse Rate 74 75 74 Respiratory Rate 35 H 31 H 29 H Blood Pressure 90/51 L 89/52 L 86/51 L Pulse Oximetry 92 L 89 L 96 06/28/18 10:55 06/28/18 10:59 06/28/18 11:00 Temperature Pulse Rate 72 75 77 Respiratory Rate 23 32 H 35 H Blood Pressure 90/51 L 83/48 L Pulse Oximetry 99 94 L 06/28/18 11:06 06/28/18 11:10 06/28/18 11:15 Temperature Pulse Rate 84 79 79 Respiratory Rate 45 H 33 H 36 H Blood Pressure 103/48 L 96/52 L 98/52 L Pulse Oximetry 87 L 87 L 87 L 06/28/18 11:20 06/28/18 11:25 06/28/18 11:30 Temperature Pulse Rate 80 79 78 Respiratory Rate 32 H 36 H 30 H Blood Pressure 91/52 L 90/52 L 90/52 L Pulse Oximetry 89 L 94 L 89 L 06/28/18 11:35 06/28/18 11:40 06/28/18 11:45 Temperature Pulse Rate 79 80 78 Respiratory Rate 32 H 31 H 34 H Blood Pressure 90/52 L 86/48 L 92/46 L Pulse Oximetry 94 L 91 L 94 L 06/28/18 11:50 06/28/18 11:55 06/28/18 12:00 Temperature 96.4 F L Pulse Rate 78 76 78 Respiratory Rate 28 H 31 H 30 H Blood Pressure 91/51 L 85/48 L 89/49 L Pulse Oximetry 93 L 97 97 06/28/18 12:05 06/28/18 12:10 06/28/18 12:15 Temperature Pulse Rate 77 80 80 Respiratory Rate 24 25 H 33 H Blood Pressure 88/51 L 94/49 L 87/52 L Pulse Oximetry 98 96 94 L 06/28/18 13:30 06/28/18 13:35 06/28/18 13:40 Temperature Pulse Rate 75 79 79 Respiratory Rate 34 H 36 H Blood Pressure 94/50 L 94/53 L Pulse Oximetry 96 86 L 89 L 06/28/18 13:45 06/28/18 13:50 06/28/18 13:55 Temperature Pulse Rate 83 82 81 Respiratory Rate 33 H 32 H 35 H Blood Pressure 88/52 L 91/53 L 92/51 L Pulse Oximetry 86 L 86 L 86 L 06/28/18 14:00 06/28/18 14:05 06/28/18 14:10 Temperature Pulse Rate 80 79 80 Respiratory Rate 32 H 32 H 38 H Blood Pressure 105/56 L 107/55 L 100/59 L Pulse Oximetry 88 L 92 L 88 L 06/28/18 14:15 06/28/18 14:20 06/28/18 14:25 Temperature Pulse Rate 79 76 80 Respiratory Rate 36 H 37 H 37 H Blood Pressure 100/52 L 108/53 L 106/53 L Pulse Oximetry 92 L 97 93 L 06/28/18 14:30 06/28/18 14:36 06/28/18 14:41 Temperature Pulse Rate 77 85 93 H Respiratory Rate 29 H 38 H 39 H Blood Pressure 108/53 L 105/56 L 102/57 L Pulse Oximetry 96 90 L 72 L 06/28/18 14:45 06/28/18 14:54 06/28/18 15:00 Temperature Pulse Rate 95 H 86 89 Respiratory Rate 38 H 35 H 37 H Blood Pressure 108/53 L 107/53 L Pulse Oximetry 69 L 86 L 87 L 06/28/18 15:04 06/28/18 15:15 06/28/18 15:18 Temperature Pulse Rate 84 86 86 Respiratory Rate 33 H 32 H 32 H Blood Pressure 100/51 L 100/55 L Pulse Oximetry 91 L 89 L 06/28/18 15:31 06/28/18 15:45 06/28/18 16:00 Temperature 97.6 F Pulse Rate 87 89 84 Respiratory Rate 45 H 27 H 25 H Blood Pressure 94/52 L 103/51 L 93/55 L Pulse Oximetry 81 L 96 98 06/28/18 16:15 06/28/18 16:31 06/28/18 16:36 Temperature Pulse Rate 88 89 Respiratory Rate 37 H 36 H Blood Pressure 93/55 L 114/53 L Pulse Oximetry 92 L 85 L 98 06/28/18 16:45 06/28/18 17:35 06/28/18 17:42 Temperature Pulse Rate 87 104 H Respiratory Rate 27 H 16 17 Blood Pressure 118/57 L 106/57 L Pulse Oximetry 96 99 94 L 06/28/18 17:43 06/28/18 17:44 06/28/18 17:45 Temperature Pulse Rate 102 H 100 H 97 H Respiratory Rate 16 16 16 Blood Pressure 107/55 L 113/53 L 107/56 L Pulse Oximetry 98 99 100 06/28/18 17:46 06/28/18 17:47 06/28/18 17:48 Temperature Pulse Rate 98 H 99 H 98 H Respiratory Rate 41 H 46 H 74 H Blood Pressure 103/66 103/59 L 101/57 L Pulse Oximetry 99 99 100 06/28/18 17:49 06/28/18 17:50 06/28/18 17:51 Temperature Pulse Rate 95 H 94 H 96 H Respiratory Rate 76 H 63 H 44 H Blood Pressure 122/58 L 114/56 L 130/62 Pulse Oximetry 99 100 100 06/28/18 17:52 06/28/18 17:53 06/28/18 17:54 Temperature Pulse Rate 97 H 97 H 96 H Respiratory Rate 29 H 36 H 42 H Blood Pressure 121/59 L 115/58 L 120/58 L Pulse Oximetry 100 100 100 06/28/18 18:00 06/28/18 18:15 06/28/18 18:30 Temperature Pulse Rate 94 H 101 H 104 H Respiratory Rate 19 17 17 Blood Pressure 115/56 L 121/62 121/61 Pulse Oximetry 100 98 97 06/28/18 18:45 06/28/18 19:00 06/28/18 19:15 Temperature Pulse Rate 105 H 107 H 109 H Respiratory Rate 23 31 H 34 H Blood Pressure 125/63 121/58 L 124/60 Pulse Oximetry 97 97 96 06/28/18 19:30 06/28/18 19:45 06/28/18 19:47 Temperature Pulse Rate 109 H 111 H 110 H Respiratory Rate 31 H 30 H 26 H Blood Pressure 124/63 122/62 Pulse Oximetry 97 96 06/28/18 20:00 06/28/18 20:15 06/28/18 20:30 Temperature 98.2 F Pulse Rate 107 H 101 H 108 H Respiratory Rate 30 H 29 H 32 H Blood Pressure 124/61 113/59 L 128/56 L Pulse Oximetry 96 97 93 L 06/28/18 20:45 06/28/18 21:00 06/28/18 21:15 Temperature Pulse Rate 108 H 106 H 110 H Respiratory Rate 32 H 30 H 31 H Blood Pressure 125/59 L 122/61 125/57 L Pulse Oximetry 95 97 97 06/28/18 21:30 06/28/18 21:45 06/28/18 22:00 Temperature Pulse Rate 114 H 104 H 101 H Respiratory Rate 32 H 29 H 27 H Blood Pressure 123/60 116/55 L 104/54 L Pulse Oximetry 97 98 98 06/28/18 22:15 06/28/18 22:30 06/28/18 22:45 Temperature Pulse Rate 106 H 103 H 102 H Respiratory Rate 31 H 32 H 30 H Blood Pressure 117/57 L 113/56 L 114/58 L Pulse Oximetry 97 99 99 06/28/18 23:00 06/28/18 23:15 06/28/18 23:30 Temperature Pulse Rate 97 H 103 H 102 H Respiratory Rate 31 H 33 H 33 H Blood Pressure 105/56 L 107/55 L 110/55 L Pulse Oximetry 99 99 99 06/28/18 23:40 06/28/18 23:41 06/28/18 23:42 Temperature Pulse Rate 100 H 100 H Respiratory Rate 32 H 28 H 31 H Blood Pressure 113/56 L Pulse Oximetry 97 97 06/28/18 23:45 06/28/18 23:50 06/28/18 23:55 Temperature Pulse Rate 99 H 97 H 97 H Respiratory Rate 33 H 30 H 32 H Blood Pressure 109/58 L 105/57 L 106/58 L Pulse Oximetry 97 97 96 06/29/18 00:00 06/29/18 02:00 06/29/18 03:33 Temperature 97.9 F Pulse Rate 97 H 95 H 97 H Respiratory Rate 32 H 22 Blood Pressure 105/59 L Pulse Oximetry 95 06/29/18 03:35 06/29/18 03:55 06/29/18 04:00 Temperature 97.7 F Pulse Rate 93 H 94 H Respiratory Rate 23 22 24 Blood Pressure 123/58 L 119/62 Pulse Oximetry 98 97 97 06/29/18 04:05 06/29/18 04:10 06/29/18 04:15 Temperature Pulse Rate 95 H 95 H 95 H Respiratory Rate 26 H 20 21 Blood Pressure 129/58 L 119/59 L 159/65 H Pulse Oximetry 97 98 98 06/29/18 04:20 06/29/18 04:25 06/29/18 04:30 Temperature Pulse Rate 97 H 96 H 97 H Respiratory Rate 21 28 H 22 Blood Pressure 121/58 L 126/56 L 128/62 Pulse Oximetry 98 97 98 06/29/18 04:35 06/29/18 04:40 06/29/18 04:46 Temperature Pulse Rate 97 H 96 H 105 H Respiratory Rate 21 24 30 H Blood Pressure 130/55 L 118/64 131/62 Pulse Oximetry 98 98 96 06/29/18 04:50 06/29/18 04:55 06/29/18 05:00 Temperature Pulse Rate 109 H 98 H 99 H Respiratory Rate 35 H 26 H 34 H Blood Pressure 116/56 L 120/59 L 115/55 L Pulse Oximetry 95 98 97 06/29/18 05:05 06/29/18 05:10 06/29/18 05:15 Temperature Pulse Rate 99 H 98 H 97 H Respiratory Rate 28 H 32 H 35 H Blood Pressure 110/52 L 126/59 L 132/60 Pulse Oximetry 95 97 98 06/29/18 05:20 06/29/18 05:25 06/29/18 05:30 Temperature Pulse Rate 97 H 95 H 93 H Respiratory Rate 35 H 30 H 33 H Blood Pressure 128/58 L 127/62 79/50 L Pulse Oximetry 98 98 98 06/29/18 05:35 06/29/18 05:40 06/29/18 05:45 Temperature Pulse Rate 97 H 91 H 94 H Respiratory Rate 33 H 28 H 31 H Blood Pressure 127/84 128/81 142/63 H Pulse Oximetry 98 98 98 06/29/18 05:50 06/29/18 05:55 06/29/18 06:00 Temperature Pulse Rate 92 H 90 95 H Respiratory Rate 30 H 28 H Blood Pressure 134/62 131/64 Pulse Oximetry 98 97 06/29/18 07:38 Temperature Pulse Rate 101 H Respiratory Rate 23 Blood Pressure Pulse Oximetry 98 Intake & Output 06/28/18 06/29/18 06/29/18 18:59 06:59 18:59 Intake Total 3850 / 3850 1949 Output Total 375 / 375 Balance 3475 / 3475 1949 Weight 63 kg Intake: IV 3850 / 3850 1950 / 1950 Diprivan 1000 mg/100 ml Inj 1, 100 / 100 000 mg In 100 ml @ 5 MCG/KG/MIN 1.86 mls/hr IV.CONT TITRATE PRN Rx#:[id number] NS Inj 1,000 ML @ 84 mls/hr IV. 1000 / 1000 1000 / 1000 CONT .[id number] EMILIA Rx#:[id number] Azithromycin Inj 500 MG In NS 250 / 250 Inj 250 ML @ 250 mls/hr IV.SIG Q24H EMILIA Rx#:[id number] Levophed-Dextrose 4 mg/250 ml 500 / 500 Drip 4 mg In 250 ml @ 2 MCG/MIN 7.5 mls/hr IV.SIG TITRATE PRN Rx#:[id number] Zosyn 3.375 GM Premix 3.375 gm 100 / 100 100 / 100 In 50 ml @ 100 mls/hr IV.SIG Q6H EMILIA Rx#:[id number] NS Inj 1,000 ML @ 2000 mls/hr 2000 / 2000 IV.SIG Q30M EMILIA Rx#:[id number] NS Inj 500 ML @ Wide Open IV. 500 / 500 SIG BOLUS ONE Rx#:[id number] Vancomycin Inj 1,000 MG In NS 250 / 250 Inj 250 ML @ 250 mls/hr IV.SIG Q24H EMILIA Rx#:[id number] Oral 0 / 0 Output: Urine 375 / 375 Other: # Incontinent Voids 1 Result Diagrams: 06/29/18 03:35 06/29/18 03:35 Objective Remarks: GEN: Frail-appearing critically ill elderly male lying in bed, on mechanical ventilation HEENT: NCAT, PERRL NECK: Trachea midline CARDIO: Tachycardic, irregular. Atrial fibrillation with RVR. Currently hypotensive on Levophed 11 mcg/min RESP: On PRVC/AC. Air entry equal bilaterally but diminished at the bases. Few basilar crackles heard. Bedside ultrasound small left effusion ABD/GI: PEG tube in place, site clean/ dry/ intact, abdomen soft and non-tender EXT/MSK: No peripheral edema SKIN: Warm and well-perfused, stage 1 sacral decubitus NEURO: Alert awake, answers questions appropriately, no focal neuro deficits Assessment and Plan - Assessment and Plan Plan: 87yM presenting with COPD exacerbation, septic shock secondary to HCAP, acute hypoxic respiratory failure requiring mechanical ventilation, now very critical. Remains critically ill on Levophed and mechanical ventilatory support. Now with atrial fibrillation and RVR NEURO: History of restless leg syndrome * Postintubation sedation with Versed and fentanyl infusion * Start daily sedation vacation in 24 hours * PRN tylenol for pain, delirium precautions * Continue home dose of requip CARDIO: Septic shock Currently in septic shock, continue maintenance fluid Discontinue Levophed, start vasopressin to maintain map above 65 due to tachycardia Cardizem 10 mg IV push followed by 30 mg every 6 hours p.o. Hold home Cardizem 120 mg History of essential hypertension, atrial fibrillation, coronary artery disease * Continue home dose of aspirin, pravastatin * Rate control if needed with IV Cardizem gtt. RESP: Septic shock secondary to healthcare associated pneumonia COPD with acute exacerbation Acute hypoxic respiratory failure * Intubated and placed on mechanical ventilation on 06/28/2018. PRBC AC * Continue scheduled and PRN nebs * Continue steroids Solu-Medrol 60 mg IV every 8 hours * Received 1 dose of IV magnesium as well * Treat for recurrent HCAP with azithromycin, zosyn, vancomycin * Trend lactic acid until clear * F/U urine legionella. * Follow up cultures and MRSA swab * Family wants to maintain alternate code, no CPR or intubation and mechanical ventilation okay for limited. Of time F/E/N: History of dysphagia Severe protein calorie malnutrition as evidenced by frailty and hypoalbuminemia * Trickle TFs via PEG * Maintenance fluids * ICU electrolyte protocol ENDO: History of hypothyroidism * Continue home dose of Synthroid ID: HCAP Septic shock * As outlined above. Follow-up on cultures, continue azithromycin Zosyn and vancomycin * Follow-up on sputum culture. Blood cultures negative to PROPHY: * PPI (patient is on omeprazole at home) * SCDs, SQH Overall: This patient is critically ill with acute hypoxic respiratory failure requiring non-invasive ventilation and severe sepsis secondary to HCAP. He requires ICU level of care. I have also requested a palliative care consultation as this is the patient's 3rd hospitalization in 3 months related to his COPD/ recurrent pneumonia and he will undoubtedly continue to have sequelae of both of these issues going forward. Counseling/ Coordination of Care: This patient is critically ill with impairment of one or more vital organ systems with a high probability of imminent or life-threatening deterioration. High-complexity medical decision making was required to support vital organ function and/ or prevent deterioration in the patient's condition. Total critical care time spent is 45 minutes giving full attention to this patient. This includes examining the patient, gathering history from someone other than the patient (i.e. chart review), discussing the patient's care with other providers, managing the patient's bipap settings, ordering and interpreting radiologic studies, ordering and interpreting laboratory values, and documentation. Amount of time is separate from teaching, counseling the patient and/or family, and exclusive of procedures.
[2018-06-29] MEDS: dilTIAZem 30 MG Tablet PO SCH ×4 (09:05→20:05)
[2018-06-29] MEDS: Vasopressin Inj 40 UNIT in Sodium Chlor 0.9% Inj 98 ML IV.CONT SCH (09:09)
[2018-06-29] MEDS: Sod Chloride 0.9% Inj 1,000 ML IV.CONT SCH ×2 (09:22→20:05)
[2018-06-29] MEDS: Budesonide-Formoterol 80/4.5 MCG 6.9 GM Inhaler INH SCH (11:54)
--- NOTE | 2018-06-29 15:03 | P.PNPAL ---
Reason for Visit Reason for visit: a. To assist with evaluation and management of symptoms including: Dyspnea, agitation, dysphagia b. To assist medical decision maker(s) with: better understanding of current medical conditions; weighing benefits/burdens of medical treatment options; making medical treatment decisions. Subjective Subjective/Interval History: This is an 87-year-old male with a history of severe COPD, dysphasia, recurrent pneumonia, coronary artery disease, PAF and failure to thrive who was seen by palliative care 05/13/18 and was discharged to [facility] rehab after declining a hospice admission. He presented back to the ED 06/18/2018 with a complaint of dyspnea and dysphasia requesting PEG tube placement. PEG tube was placed 06/20/[address] Vázquez. [facility] was [facility]. He again presented to the emergency room 6 days later on 06/27 for dyspnea, bilateral pneumonia and chronic cough. Patient seen today for follow-up of symptom management of dyspnea, dysphagia, agitation and goals of medical treatment. Patient was intubated yesterday afternoon and is currently hypotensive on vasopressors. He is currently receiving vasopressin and maintaining a blood pressure of 90/50. Levophed was initiated to allow increase of his sedation as patient is agitated and thrashing. Chest x-ray yesterday showed bilateral parenchymal consolidation. OG tube is present for tube feeding. Patient is receiving fentanyl 100 however is still awake, pulling against restraints, fighting the vent and thrashing in the bed. Given his hypotension, he will require additional vasopressors to allow increase of the sedation for patient comfort. He is critically ill. Oxygenation is improving on mechanical ventilation but chest x-ray continues to show left greater than right basilar infiltrates. He has been weaned to 40% FiO2 and appears that he may be able to be medically extubated. He is intermittently tachypneic with respiratory rates up to 30 with stimulation or agitation. He is receiving DuoNeb, Symbicort, cefepime, ceftriaxone, Precedex, fentanyl and furosemide. He has a permanent PEG tube placed 06/20/[address] Vázquez for chronic dysphasia and recurrent aspiration. He likely continues to have some aspiration pneumonitis. At this time due to his fragile respiratory status, no speech therapy is being done. Patient underwent modified barium swallow 2017 showing moderate to severe dysphagia and mild oral dysphagia with silent aspiration of thin and nectar thick liquids. He had been placed on a pured consistency solids with honey thickened liquids with supplemental feeding via PEG tube. When seen at a prior hospitalization 06/21/18, patient was refusing to eat modified diet and diet consistency was converted to n.p.o. with tube feedings only. . Family/Friend Interactions: Son, Tolu, was at bedside visiting. He has a history as a respiratory therapist so has a fair understanding of the patient's current condition. He is aware that he is in a critical situation requiring maximum support but is willing to allow a chance for diuresis if tolerated by blood pressure to see if his father can be medically extubated. He states that the family is not willing to proceed with tracheostomy and PEG placement but is hopeful that his father can be medically extubated. We discussed possible scenarios and he is aware of the potential complications that may arise. His main concern is his mother who is 86 and in frail health herself. We will continue to be available family updates as needed. . Objective Vital Signs: Vital Signs 06/28/18 15:00 06/28/18 15:04 06/28/18 15:15 Temperature Pulse Rate 89 84 86 Respiratory Rate 37 H 33 H 32 H Blood Pressure 100/51 L 100/55 L Pulse Oximetry 87 L 91 L 89 L 06/28/18 15:18 06/28/18 15:31 06/28/18 15:45 Temperature Pulse Rate 86 87 89 Respiratory Rate 32 H 45 H 27 H Blood Pressure 94/52 L 103/51 L Pulse Oximetry 81 L 96 06/28/18 16:00 06/28/18 16:15 06/28/18 16:31 Temperature 97.6 F Pulse Rate 84 88 89 Respiratory Rate 25 H 37 H 36 H Blood Pressure 93/55 L 93/55 L 114/53 L Pulse Oximetry 98 92 L 85 L 06/28/18 16:36 06/28/18 16:45 06/28/18 17:35 Temperature Pulse Rate 87 Respiratory Rate 27 H 16 Blood Pressure 118/57 L Pulse Oximetry 98 96 99 06/28/18 17:42 06/28/18 17:43 06/28/18 17:44 Temperature Pulse Rate 104 H 102 H 100 H Respiratory Rate 17 16 16 Blood Pressure 106/57 L 107/55 L 113/53 L Pulse Oximetry 94 L 98 99 06/28/18 17:45 06/28/18 17:46 06/28/18 17:47 Temperature Pulse Rate 97 H 98 H 99 H Respiratory Rate 16 41 H 46 H Blood Pressure 107/56 L 103/66 103/59 L Pulse Oximetry 100 99 99 06/28/18 17:48 06/28/18 17:49 06/28/18 17:50 Temperature Pulse Rate 98 H 95 H 94 H Respiratory Rate 74 H 76 H 63 H Blood Pressure 101/57 L 122/58 L 114/56 L Pulse Oximetry 100 99 100 06/28/18 17:51 06/28/18 17:52 06/28/18 17:53 Temperature Pulse Rate 96 H 97 H 97 H Respiratory Rate 44 H 29 H 36 H Blood Pressure 130/62 121/59 L 115/58 L Pulse Oximetry 100 100 100 06/28/18 17:54 06/28/18 18:00 06/28/18 18:15 Temperature Pulse Rate 96 H 94 H 101 H Respiratory Rate 42 H 19 17 Blood Pressure 120/58 L 115/56 L 121/62 Pulse Oximetry 100 100 98 06/28/18 18:30 06/28/18 18:45 06/28/18 19:00 Temperature Pulse Rate 104 H 105 H 107 H Respiratory Rate 17 23 31 H Blood Pressure 121/61 125/63 121/58 L Pulse Oximetry 97 97 97 06/28/18 19:15 06/28/18 19:30 06/28/18 19:45 Temperature Pulse Rate 109 H 109 H 111 H Respiratory Rate 34 H 31 H 30 H Blood Pressure 124/60 124/63 122/62 Pulse Oximetry 96 97 96 06/28/18 19:47 06/28/18 20:00 06/28/18 20:15 Temperature 98.2 F Pulse Rate 110 H 107 H 101 H Respiratory Rate 26 H 30 H 29 H Blood Pressure 124/61 113/59 L Pulse Oximetry 96 97 06/28/18 20:30 06/28/18 20:45 06/28/18 21:00 Temperature Pulse Rate 108 H 108 H 106 H Respiratory Rate 32 H 32 H 30 H Blood Pressure 128/56 L 125/59 L 122/61 Pulse Oximetry 93 L 95 97 06/28/18 21:15 06/28/18 21:30 06/28/18 21:45 Temperature Pulse Rate 110 H 114 H 104 H Respiratory Rate 31 H 32 H 29 H Blood Pressure 125/57 L 123/60 116/55 L Pulse Oximetry 97 97 98 06/28/18 22:00 06/28/18 22:15 06/28/18 22:30 Temperature Pulse Rate 101 H 106 H 103 H Respiratory Rate 27 H 31 H 32 H Blood Pressure 104/54 L 117/57 L 113/56 L Pulse Oximetry 98 97 99 06/28/18 22:45 06/28/18 23:00 06/28/18 23:15 Temperature Pulse Rate 102 H 97 H 103 H Respiratory Rate 30 H 31 H 33 H Blood Pressure 114/58 L 105/56 L 107/55 L Pulse Oximetry 99 99 99 06/28/18 23:30 06/28/18 23:40 06/28/18 23:41 Temperature Pulse Rate 102 H 100 H 100 H Respiratory Rate 33 H 32 H 28 H Blood Pressure 110/55 L 113/56 L Pulse Oximetry 99 97 06/28/18 23:42 06/28/18 23:45 06/28/18 23:50 Temperature Pulse Rate 99 H 97 H Respiratory Rate 31 H 33 H 30 H Blood Pressure 109/58 L 105/57 L Pulse Oximetry 97 97 97 06/28/18 23:55 06/29/18 00:00 06/29/18 02:00 Temperature 97.9 F Pulse Rate 97 H 97 H 95 H Respiratory Rate 32 H 32 H Blood Pressure 106/58 L 105/59 L Pulse Oximetry 96 95 06/29/18 03:33 06/29/18 03:35 06/29/18 03:55 Temperature Pulse Rate 97 H 93 H Respiratory Rate 22 23 22 Blood Pressure 123/58 L Pulse Oximetry 98 97 06/29/18 04:00 06/29/18 04:05 06/29/18 04:10 Temperature 97.7 F Pulse Rate 94 H 95 H 95 H Respiratory Rate 24 26 H 20 Blood Pressure 119/62 129/58 L 119/59 L Pulse Oximetry 97 97 98 06/29/18 04:15 06/29/18 04:20 06/29/18 04:25 Temperature Pulse Rate 95 H 97 H 96 H Respiratory Rate 21 21 28 H Blood Pressure 159/65 H 121/58 L 126/56 L Pulse Oximetry 98 98 97 06/29/18 04:30 06/29/18 04:35 06/29/18 04:40 Temperature Pulse Rate 97 H 97 H 96 H Respiratory Rate 22 21 24 Blood Pressure 128/62 130/55 L 118/64 Pulse Oximetry 98 98 98 06/29/18 04:46 06/29/18 04:50 06/29/18 04:55 Temperature Pulse Rate 105 H 109 H 98 H Respiratory Rate 30 H 35 H 26 H Blood Pressure 131/62 116/56 L 120/59 L Pulse Oximetry 96 95 98 06/29/18 05:00 06/29/18 05:05 06/29/18 05:10 Temperature Pulse Rate 99 H 99 H 98 H Respiratory Rate 34 H 28 H 32 H Blood Pressure 115/55 L 110/52 L 126/59 L Pulse Oximetry 97 95 97 06/29/18 05:15 06/29/18 05:20 06/29/18 05:25 Temperature Pulse Rate 97 H 97 H 95 H Respiratory Rate 35 H 35 H 30 H Blood Pressure 132/60 128/58 L 127/62 Pulse Oximetry 98 98 98 06/29/18 05:30 06/29/18 05:35 06/29/18 05:40 Temperature Pulse Rate 93 H 97 H 91 H Respiratory Rate 33 H 33 H 28 H Blood Pressure 79/50 L 127/84 128/81 Pulse Oximetry 98 98 98 06/29/18 05:45 06/29/18 05:50 06/29/18 05:55 Temperature Pulse Rate 94 H 92 H 90 Respiratory Rate 31 H 30 H 28 H Blood Pressure 142/63 H 134/62 131/64 Pulse Oximetry 98 98 97 06/29/18 06:00 06/29/18 07:38 06/29/18 07:40 Temperature Pulse Rate 95 H 101 H 100 H Respiratory Rate 23 27 H Blood Pressure 122/59 L Pulse Oximetry 98 98 06/29/18 07:45 06/29/18 07:50 06/29/18 07:55 Temperature Pulse Rate 99 H 114 H 116 H Respiratory Rate 28 H 28 H 28 H Blood Pressure 131/62 134/64 134/60 Pulse Oximetry 98 98 98 06/29/18 08:00 06/29/18 08:05 06/29/18 08:10 Temperature 97.8 F Pulse Rate 117 H 117 H 114 H Respiratory Rate 29 H 28 H 26 H Blood Pressure 148/67 H 128/61 128/68 Pulse Oximetry 98 98 97 06/29/18 08:15 06/29/18 08:20 06/29/18 08:25 Temperature Pulse Rate 118 H 121 H 120 H Respiratory Rate 28 H 26 H 28 H Blood Pressure 109/64 120/69 114/69 Pulse Oximetry 97 96 96 06/29/18 08:30 06/29/18 08:35 06/29/18 08:42 Temperature Pulse Rate 116 H 116 H 112 H Respiratory Rate 22 25 H 24 Blood Pressure 130/80 139/68 123/75 Pulse Oximetry 97 98 97 06/29/18 08:45 06/29/18 08:50 06/29/18 08:55 Temperature Pulse Rate 121 H 119 H 119 H Respiratory Rate 33 H 26 H 28 H Blood Pressure 130/62 125/67 125/77 Pulse Oximetry 97 97 97 06/29/18 09:00 06/29/18 09:05 06/29/18 09:10 Temperature Pulse Rate 117 H 117 H 92 H Respiratory Rate 28 H 32 H 17 Blood Pressure 132/63 120/64 100/55 L Pulse Oximetry 97 98 96 06/29/18 09:15 06/29/18 09:20 06/29/18 09:25 Temperature Pulse Rate 87 97 H 89 Respiratory Rate 24 26 H 24 Blood Pressure 131/63 122/57 L 129/60 Pulse Oximetry 96 97 97 06/29/18 09:30 06/29/18 09:35 06/29/18 09:40 Temperature Pulse Rate 97 H 91 H 100 H Respiratory Rate 27 H 25 H 30 H Blood Pressure 129/60 113/59 L 108/63 Pulse Oximetry 98 97 98 06/29/18 10:00 06/29/18 10:25 06/29/18 10:30 Temperature Pulse Rate 94 H 85 85 Respiratory Rate 22 24 Blood Pressure 103/56 L 99/52 L Pulse Oximetry 96 96 06/29/18 10:35 06/29/18 10:40 06/29/18 10:45 Temperature Pulse Rate 83 83 82 Respiratory Rate 21 20 22 Blood Pressure 99/54 L 97/53 L 99/56 L Pulse Oximetry 97 97 97 06/29/18 10:50 06/29/18 10:55 06/29/18 11:00 Temperature Pulse Rate 82 82 82 Respiratory Rate 19 24 24 Blood Pressure 101/58 L 96/55 L 101/53 L Pulse Oximetry 96 96 97 06/29/18 11:05 06/29/18 11:10 06/29/18 11:15 Temperature Pulse Rate 82 81 79 Respiratory Rate 25 H 23 19 Blood Pressure 91/54 L 90/51 L 84/48 L Pulse Oximetry 96 96 96 06/29/18 11:20 06/29/18 11:25 06/29/18 11:28 Temperature Pulse Rate 81 80 80 Respiratory Rate 24 25 H 26 H Blood Pressure 86/48 L 81/47 L 82/48 L Pulse Oximetry 96 96 96 06/29/18 11:30 06/29/18 11:31 06/29/18 11:35 Temperature Pulse Rate 79 80 79 Respiratory Rate 23 22 20 Blood Pressure 83/48 L 83/48 L 84/48 L Pulse Oximetry 96 97 97 06/29/18 11:40 06/29/18 11:45 06/29/18 11:50 Temperature Pulse Rate 79 78 79 Respiratory Rate 20 23 20 Blood Pressure 86/50 L 90/51 L 97/54 L Pulse Oximetry 98 98 98 06/29/18 11:55 06/29/18 12:00 06/29/18 12:05 Temperature Pulse Rate 81 81 80 Respiratory Rate 26 H 26 H 23 Blood Pressure 104/53 L 93/53 L 95/51 L Pulse Oximetry 98 97 97 06/29/18 12:10 06/29/18 12:15 06/29/18 14:00 Temperature 98.4 F Pulse Rate 80 80 93 H Respiratory Rate 24 25 H Blood Pressure 93/52 L 88/50 L Pulse Oximetry 97 97 Intake & Output 06/28/18 06/29/18 06/29/18 18:59 06:59 18:59 Intake Total 3850 / 3850 1949 1250 / 1250 Output Total 375 / 375 Balance 3475 / 3475 1949 1250 / 1250 Weight 138 lb 14.259 oz Intake: IV 3850 / 3850 1949 / 1950 1250 / 1250 Diprivan 1000 mg/100 ml Inj 1, 100 / 100 000 mg In 100 ml @ 5 MCG/KG/MIN 1.86 mls/hr IV.CONT TITRATE PRN Rx#:[id number] NS Inj 1,000 ML @ 84 mls/hr IV. 1000 / 1000 1000 / 1000 1000 / 1000 CONT .[id number] [facility] Rx#:[id number] Azithromycin Inj 500 MG In NS 250 / 250 Inj 250 ML @ 250 mls/hr IV.SIG Q24H [facility] Rx#:[id number] Levophed-Dextrose 4 mg/250 ml 500 / 500 200 / 200 Drip 4 mg In 250 ml @ 2 MCG/MIN 7.5 mls/hr IV.SIG TITRATE PRN Rx#:[id number] Zosyn 3.375 GM Premix 3.375 gm 100 / 100 100 / 100 50 / 50 In 50 ml @ 100 mls/hr IV.SIG Q6H [facility] Rx#:[id number] NS Inj 1,000 ML @ 2000 mls/hr 2000 / 2000 IV.SIG Q30M [facility] Rx#:[id number] NS Inj 500 ML @ Wide Open IV. 500 / 500 SIG BOLUS ONE Rx#:[id number] Vancomycin Inj 1,000 MG In NS 250 / 250 Inj 250 ML @ 250 mls/hr IV.SIG Q24H [facility] Rx#:[id number] Oral 0 / 0 Output: Urine 375 / 375 Other: # Incontinent Voids 1 Physical Exam: CONSTITUTIONAL/GENERAL: This is a thin elderly male patient, intubated, lightly sedated, thrashing in bed, fighting the vent, now intubated. TUBES/LINES/DRAINS: Right IJ central line CARDIOVASCULAR: S1, S2, tachycardic rate, regular rhythm without murmurs, gallops, or rubs. No JVD. Peripheral pulses symmetric. RESPIRATORY/CHEST: Mechanically ventilated, thrashing, wheezes, diminished. GASTROINTESTINAL: Abdomen soft, non-tender, nondistended. No hepato-splenomegaly , or palpable masses. No guarding. Bowel sounds present. GENITOURINARY: Without palpable bladder distension. MUSCULOSKELETAL: Extremities without clubbing, cyanosis, or edema. No joint tenderness or effusion noted. No calf tenderness. No mottling or clubbing. NEUROLOGICAL: Lightly sedated, agitated, thrashing. Not following commands. PSYCHIATRIC: Agitated. . Diagnostic Tests Laboratory: Laboratory Results - last 72 hr 06/27/18 06/27/18 06/27/18 17:02 17:02 17:02 WBC 15.4 H RBC 3.83 L Hgb 11.4 L Hct 33.2 L MCV 86.6 MCH 29.8 MCHC 34.5 RDW 21.4 H Plt Count 192 MPV 11.0 Neut % (Auto) 91.0 H Lymph % (Auto) 4.2 L Porter % (Auto) 4.8 Eos % (Auto) 0.0 Baso % (Auto) 0.0 Neut # (Auto) 14.0 H Lymph # (Auto) 0.6 L Porter # (Auto) 0.7 Eos # (Auto) 0.0 Baso # (Auto) 0.0 WBC Differential . Differential Comment Auto diff final PT 10.6 INR 1.0 APTT 26.1 Puncture Site Patient Temperature O2 Saturation ABG pH ABG pCO2 ABG pO2 ABG HCO3 ABG O2 Content ABG Base Excess ABG Methemoglobin Hector Test Hemoglobin Carboxyhemoglobin O2 Delivery Device Liter Flow Vent Setting Inspired O2 Critical Value Sodium 135 L Potassium 4.0 Chloride 105 Carbon Dioxide 17.0 L Anion Gap 13 BUN 29 H Creatinine 1.38 H Estimated GFR 49 L Random Glucose 169 H Lactic Acid Calcium 8.3 L Calcium Adj for Albumin Phosphorus Magnesium 1.7 Total Bilirubin 0.5 AST 27 ALT 49 Alkaline Phosphatase 124 H Total Creatine Kinase 61 Troponin I 0.10 H B-Natriuretic Peptide Total Protein 6.7 Albumin 1.8 L Urine Color Urine Clarity Urine pH Ur Specific Ace Urine Protein Urine Glucose (UA) Urine Ketones Urine Occult Blood Urine Nitrate Urine Bilirubin Urine Urobilinogen Ur Leukocyte Esterase Urine RBC Urine WBC Urine Bacteria Urine Mucus Micro UA Comment Ur Microscopic Review Urine Culture Comments Nasal Screen MRSA (PCR) 06/27/18 06/27/18 06/27/18 17:02 17:02 17:02 WBC RBC Hgb Hct MCV MCH MCHC RDW Plt Count MPV Neut % (Auto) Lymph % (Auto) Porter % (Auto) Eos % (Auto) Baso % (Auto) Neut # (Auto) Lymph # (Auto) Porter # (Auto) Eos # (Auto) Baso # (Auto) WBC Differential Differential Comment PT INR APTT Puncture Site Patient Temperature O2 Saturation ABG pH ABG pCO2 ABG pO2 ABG HCO3 ABG O2 Content ABG Base Excess ABG Methemoglobin Hector Test Hemoglobin Carboxyhemoglobin O2 Delivery Device Liter Flow Vent Setting Inspired O2 Critical Value Sodium Cancelled Potassium Cancelled Chloride Cancelled Carbon Dioxide Cancelled Anion Gap Cancelled BUN Cancelled Creatinine Cancelled Estimated GFR Cancelled Random Glucose Cancelled Lactic Acid 8.3 H* Calcium Cancelled Calcium Adj for Albumin Cancelled Phosphorus Magnesium Cancelled Total Bilirubin Cancelled AST Cancelled ALT Cancelled Alkaline Phosphatase Cancelled Total Creatine Kinase Troponin I B-Natriuretic Peptide 458 H Total Protein Cancelled Albumin Cancelled Urine Color Urine Clarity Urine pH Ur Specific Ace Urine Protein Urine Glucose (UA) Urine Ketones Urine Occult Blood Urine Nitrate Urine Bilirubin Urine Urobilinogen Ur Leukocyte Esterase Urine RBC Urine WBC Urine Bacteria Urine Mucus Micro UA Comment Ur Microscopic Review Urine Culture Comments Nasal Screen MRSA (PCR) 06/27/18 06/27/18 06/27/18 17:10 19:16 21:30 WBC RBC Hgb Hct MCV MCH MCHC RDW Plt Count MPV Neut % (Auto) Lymph % (Auto) Porter % (Auto) Eos % (Auto) Baso % (Auto) Neut # (Auto) Lymph # (Auto) Porter # (Auto) Eos # (Auto) Baso # (Auto) WBC Differential Differential Comment PT INR APTT Puncture Site Right radial Patient Temperature 98.6 O2 Saturation 91 ABG pH 7.52 H* ABG pCO2 18 L* ABG pO2 59 L* ABG HCO3 14 L* ABG O2 Content 17.1 ABG Base Excess -8.0 L ABG Methemoglobin 0.5 Hector Test Present Hemoglobin 13.4 Carboxyhemoglobin 1.3 O2 Delivery Device Non-rebreathing mask Liter Flow 15.00 Vent Setting Inspired O2 100 Critical Value Yes Sodium Potassium Chloride Carbon Dioxide Anion Gap BUN Creatinine Estimated GFR Random Glucose Lactic Acid Calcium Calcium Adj for Albumin Phosphorus Magnesium Total Bilirubin AST ALT Alkaline Phosphatase Total Creatine Kinase Troponin I B-Natriuretic Peptide Total Protein Albumin Urine Color Yellow Urine Clarity Hazy H Urine pH 5.0 Ur Specific Ace 1.019 Urine Protein 30 H Urine Glucose (UA) 50 Urine Ketones Negative Urine Occult Blood Negative Urine Nitrate Negative Urine Bilirubin Negative Urine Urobilinogen Less than 2 Ur Leukocyte Esterase Negative Urine RBC Less than 1 Urine WBC Less than 1 Urine Bacteria Rare H Urine Mucus Few H Micro UA Comment Culture not ind Ur Microscopic Review Not Reportable Urine Culture Comments Culture not ind Nasal Screen MRSA (PCR) Not detected 06/28/18 06/28/18 06/28/18 03:45 03:45 03:45 WBC 8.9 RBC 3.56 L Hgb 10.5 L Hct 29.8 L MCV 83.9 MCH 29.6 MCHC 35.2 RDW 20.9 H Plt Count 132 L D MPV 10.5 Neut % (Auto) 90.3 H Lymph % (Auto) 5.7 L Porter % (Auto) 3.9 Eos % (Auto) 0.0 Baso % (Auto) 0.1 Neut # (Auto) 8.0 H Lymph # (Auto) 0.5 L Porter # (Auto) 0.3 Eos # (Auto) 0.0 Baso # (Auto) 0.0 WBC Differential . Differential Comment Auto diff final PT 10.7 INR 1.1 APTT Puncture Site Patient Temperature O2 Saturation ABG pH ABG pCO2 ABG pO2 ABG HCO3 ABG O2 Content ABG Base Excess ABG Methemoglobin Hector Test Hemoglobin Carboxyhemoglobin O2 Delivery Device Liter Flow Vent Setting Inspired O2 Critical Value Sodium 141 Potassium 3.8 Chloride 110 H Carbon Dioxide 17.2 L Anion Gap 14 BUN 26 H Creatinine 1.05 Estimated GFR 67 L Random Glucose 149 H Lactic Acid Calcium 7.5 L D Calcium Adj for Albumin Phosphorus 2.2 L Magnesium 2.2 Total Bilirubin 0.6 AST 45 H ALT 35 Alkaline Phosphatase 109 Total Creatine Kinase Troponin I B-Natriuretic Peptide Total Protein 6.0 L D Albumin 1.5 L Urine Color Urine Clarity Urine pH Ur Specific Ace Urine Protein Urine Glucose (UA) Urine Ketones Urine Occult Blood Urine Nitrate Urine Bilirubin Urine Urobilinogen Ur Leukocyte Esterase Urine RBC Urine WBC Urine Bacteria Urine Mucus Micro UA Comment Ur Microscopic Review Urine Culture Comments Nasal Screen MRSA (PCR) 06/28/18 06/28/18 06/28/18 05:34 10:19 18:05 WBC RBC Hgb Hct MCV MCH MCHC RDW Plt Count MPV Neut % (Auto) Lymph % (Auto) Porter % (Auto) Eos % (Auto) Baso % (Auto) Neut # (Auto) Lymph # (Auto) Porter # (Auto) Eos # (Auto) Baso # (Auto) WBC Differential Differential Comment PT INR APTT Puncture Site Right radial Right radial Patient Temperature 98.6 98.6 O2 Saturation 92 96 ABG pH 7.49 H 7.25 L* ABG pCO2 19 L* 38 ABG pO2 62 119 ABG HCO3 15 L* 16 L* ABG O2 Content 12.8 13.8 ABG Base Excess -8.2 L -10.0 L ABG Methemoglobin 1.2 1.4 Hector Test Present Present Hemoglobin 9.9 L 10.1 L Carboxyhemoglobin 1.1 0.7 O2 Delivery Device Bipap 10/5/50% Ventilator Liter Flow Vent Setting Prvc/[id number]/ Inspired O2 50 65 Critical Value Yes Yes Sodium Potassium Chloride Carbon Dioxide Anion Gap BUN Creatinine Estimated GFR Random Glucose Lactic Acid 2.4 H Calcium Calcium Adj for Albumin Phosphorus Magnesium Total Bilirubin AST ALT Alkaline Phosphatase Total Creatine Kinase Troponin I B-Natriuretic Peptide Total Protein Albumin Urine Color Urine Clarity Urine pH Ur Specific Ace Urine Protein Urine Glucose (UA) Urine Ketones Urine Occult Blood Urine Nitrate Urine Bilirubin Urine Urobilinogen Ur Leukocyte Esterase Urine RBC Urine WBC Urine Bacteria Urine Mucus Micro UA Comment Ur Microscopic Review Urine Culture Comments Nasal Screen MRSA (PCR) 06/28/18 06/29/18 06/29/18 19:50 03:35 03:35 WBC 21.9 H D RBC 3.23 L Hgb 9.4 L Hct 27.6 L MCV 85.6 MCH 29.0 MCHC 33.8 RDW 21.8 H Plt Count 354 D MPV 10.6 Neut % (Auto) Lymph % (Auto) Porter % (Auto) Eos % (Auto) Baso % (Auto) Neut # (Auto) Lymph # (Auto) Porter # (Auto) Eos # (Auto) Baso # (Auto) WBC Differential Differential Comment PT INR APTT Puncture Site Patient Temperature O2 Saturation ABG pH ABG pCO2 ABG pO2 ABG HCO3 ABG O2 Content ABG Base Excess ABG Methemoglobin Hector Test Hemoglobin Carboxyhemoglobin O2 Delivery Device Liter Flow Vent Setting Inspired O2 Critical Value Sodium 141 Potassium 3.7 3.6 Chloride 114 H Carbon Dioxide 16.5 L Anion Gap 11 BUN 28 H Creatinine 1.09 Estimated GFR 64 L Random Glucose 165 H Lactic Acid Calcium 7.5 L Calcium Adj for Albumin Phosphorus 4.7 D Magnesium 2.2 Total Bilirubin 0.4 AST 38 H ALT 40 Alkaline Phosphatase 115 Total Creatine Kinase Troponin I B-Natriuretic Peptide Total Protein 5.8 L Albumin 1.5 L Urine Color Urine Clarity Urine pH Ur Specific Ace Urine Protein Urine Glucose (UA) Urine Ketones Urine Occult Blood Urine Nitrate Urine Bilirubin Urine Urobilinogen Ur Leukocyte Esterase Urine RBC Urine WBC Urine Bacteria Urine Mucus Micro UA Comment Ur Microscopic Review Urine Culture Comments Nasal Screen MRSA (PCR) 06/29/18 06/29/18 06:00 11:20 WBC RBC Hgb Hct MCV MCH MCHC RDW Plt Count MPV Neut % (Auto) Lymph % (Auto) Porter % (Auto) Eos % (Auto) Baso % (Auto) Neut # (Auto) Lymph # (Auto) Porter # (Auto) Eos # (Auto) Baso # (Auto) WBC Differential Differential Comment PT INR APTT Puncture Site Right radial Patient Temperature 98.6 O2 Saturation 95 ABG pH 7.37 L ABG pCO2 28 L ABG pO2 87 ABG HCO3 15 L* ABG O2 Content 13.1 ABG Base Excess -8.9 L ABG Methemoglobin 1.4 Hector Test Present Hemoglobin 9.7 L Carboxyhemoglobin 0.9 O2 Delivery Device Ventilator Liter Flow Vent Setting Prvc Inspired O2 40 Critical Value Yes Sodium Potassium Chloride Carbon Dioxide Anion Gap BUN Creatinine Estimated GFR Random Glucose Lactic Acid 1.2 Calcium Calcium Adj for Albumin Phosphorus Magnesium Total Bilirubin AST ALT Alkaline Phosphatase Total Creatine Kinase Troponin I B-Natriuretic Peptide Total Protein Albumin Urine Color Urine Clarity Urine pH Ur Specific Ace Urine Protein Urine Glucose (UA) Urine Ketones Urine Occult Blood Urine Nitrate Urine Bilirubin Urine Urobilinogen Ur Leukocyte Esterase Urine RBC Urine WBC Urine Bacteria Urine Mucus Micro UA Comment Ur Microscopic Review Urine Culture Comments Nasal Screen MRSA (PCR) Result Diagrams: 07/01/18 04:45 07/02/18 09:35 Microbiology: Microbiology 06/28/18 17:50 Gram Stain - Final Sputum - Endotracheal Sputum Culture - Preliminary No growth in 24 hours 06/27/18 17:07 Aerobic Blood Culture - Preliminary Blood - Peripheral Staphylococcus coag negative Anaerobic Blood Culture - Preliminary gram positive cocci 06/27/18 17:02 Aerobic Blood Culture - Preliminary Blood - Peripheral Staphylococcus coag negative Anaerobic Blood Culture - Preliminary gram positive cocci 06/27/18 19:16 Legionella Antigen - Final Urine - Clean Catch Urine Presumptive negative for Legionella pneumophila serogroup 1 antigen in urine, suggesting no recent or recurrent infection. Infection due to Legionella cannot be ruled out since other serogroups and species may cause disease, antigen may not be present in urine in early infection, and the level of antigen present in the urine may be below the detection limit of the test. Imaging: ITS Impressions Chest X-Ray 06/29/18 06:00 CONCLUSION: Improving bibasilar airspace disease. Procedures: 06/28: Right subclavian central line placement. . Assessment and Plan Pertinent Non-Medical Issues: Psychosocial: Currently residing at rehab/SNF at [facility]. His can no longer provide care for him at home. Pt and his have been for 66 years. They are originally from [place] and have been in [place] 20+ years. 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 he did serve in the [employer]. Spiritual: church. pastoral care available. Legal: Pt appears to be capacitated to make medical decisions although he does have some mild confusion that may or may not improve. In the even he is unable to make medical decisions, per [place] statutes proxy decision making would fall to his . recommend shared decision making Ethical issues impacting care:none Important Contacts: : Sagrario [phone] Prognosis: This is an 87 y/o male with hx recurrent PNA, CAD s/p CABG, TRICIA noncompliant with CPAP, COPD, aspiration PNA who presented 05/08 with weakness, respiratory failure, returned 06/17 for dyspnea and dysphasia requiring a PEG tube, then , 6 days after discharge from PEG tube placement. He has a trajectory of decline. He remains at risk for further setbacks and decline. It is unlikely he will return to 100% of his former baseline. His respiratory status may be barrier to full performance at rehab. He may be hospice appropriate should goals be in line with comfort. Code Status: Alternative Code (Okay for intubation) Plan: PLAN: Legal decision maker: At this time the patient is not capacitated for decision-making due to his hypoxia, pneumonia and agitation. It is uncertain whether he will regain that capacity. Per [place] statutes, his Sagrario, would be his healthcare proxy decision-maker. She is supported by her son and [facility]ivqys-cd-cry Goals: To be determined. CODE STATUS: Alternative code, intubation only. SYMPTOMS: * Dysphasia: Family states that his dysphasia started before his recurrent hospitalizations. He had seen his own aspiration during barium swallow which caused him to fear of eating. He requested the PEG tube as he continued to lose weight but family states they were unaware of the aspiration risk from the PEG tube. Family reports that he was seen to be lying nearly flat at rehab with tube feeding running, increasing the likelihood that this is aspiration pneumonia/pneumonitis. * Dyspnea: He is receiving antibiotics, steroids and inhalers. At this time he is significantly dyspneic, tachypneic at rest. He is currently on 100% nonrebreather mask, but is at significant risk of continued respiratory decline. After palliative care consultation, family is considering making him a full DO NOT RESUSCITATE, but wished to process the information and discuss with the patient's family prior to making that decision. * Agitation: He is agitated with or without the ventilator. He is requiring increasing levels of sedation but remains hypotensive, also necessitating vasopressor use for adequate perfusion. He was agitated with oxygen mask and remains agitated on mechanical ventilation. Possibly multifactorial to include anxiety, hypoxia, confusion. Vasopressors have been uptitrated to allow the increase in sedation for treatment of agitation. Palliative care will continue to follow the patient during hospital course as condition evolves, to assist patient/decision-maker with understanding of their medical conditions, weighing benefits/burdens of treatment options, for clarification of goals of treatment. Additionally will assist with any symptoms of palliative concern. . Attestation Attestation: To help prompt me to consider important information that might be impacting today's encounter and assessment, information from prior notes written by myself or my colleagues may have been "brought forward" into today's note. My signature on this note, however, is an attestation that I personally performed the exam, history, and/or decision-making noted today, and, unless otherwise indicated, the interactions with patient, family, and staff as well as the review of records all occurred today. I also attest that the listed assessment and stated plan reflect my best clinical judgment today based on the combination of historical information, prior notes, and today's exam/ interactions. When time spent is documented, it refers only to time spent today by the signer, or if indicated, combined time spent today by collaborating physician/nurse practitioner. .
[2018-06-29] MEDS: Azithromycin Inj 500 MG in Sodium Chlor 0.9% Inj 250 ML IV.SIG SCH (17:14)
[2018-06-29] MEDS: Vancomycin Inj 1,000 MG in Sodium Chlor 0.9% Inj 250 ML IV.SIG SCH (21:19)
[2018-06-30] MEDS: Oral Hygiene Kit OROPHARYNG SCH ×4 (00:07→16:02)
[2018-06-30] MEDS: Vasopressin Inj 40 UNIT in Sodium Chlor 0.9% Inj 98 ML IV.CONT SCH (02:00)
[2018-06-30] MEDS: Chlorhexidine Gluconate 2% 1 Pack (2 Cloths) TOPICAL SCH (03:00)
[2018-06-30 04:20] LABS: Hematocrit 24.4 % (39.0-51.0); Hemoglobin 8.3 gm/dL (13.0-17.0); Mean Corpuscular HGB Conc 34.1 % (32.0-36.0); Mean Corpuscular Hemoglobin 29.6 pg (27.0-34.0); Mean Corpuscular Volume 86.9 fL (80.0-100.0); Mean Platelet Volume 9.6 fL (7.0-11.0); Platelet Count 201 th/mm3 (150-450); Red Blood Count 2.81 mil/mm3 (4.50-5.90); Red Cell Distribution Width 21.8 % (11.6-17.2); White Blood Count 6.2 th/mm3 (4.0-11.0)
[2018-06-30 04:37] LABS: Albumin 1.4 g/dL (3.4-5.0); Calcium 6.6 mg/dL (8.5-10.1); Carbon Dioxide 18.6 meq/L (21.0-32.0); Magnesium 2.3 mg/dL (1.5-2.5); Total Protein 5.1 g/dL (6.4-8.2)
--- NOTE | 2018-06-30 04:50 | XR ---
EXAM DATE: 06/30/2018 4:39 AM EST AGE/SEX: 87 years / Male INDICATIONS: Shortness of breath, possible pulmonary disease. CLINICAL DATA: This is the patient's subsequent encounter. Patient reports that signs and symptoms h ave been present for 3 days and indicates a pain score of Nonresponsive. MEDICAL/SURGICAL HISTORY: . Aneurysm, abdominal. Hypertension. Osteoarthritis. Coronary artery disease. A-Fib. GERD. COPD. . Cholecystectomy. CABG. Coronary artery stent. COMPARISON: C, CHEST 1V SINGLE AP, 06/29/2018. . FINDINGS: ET tube tip well above the ish. Right internal jugular catheter tip projects at the cavoatrial oliver ction. Patchy areas of infiltrate in the left lower lung with some air bronchograms similar to prior. Scattered areas of opacity in the right lower lung also similar to prior. The heart is normal in siz e. CONCLUSION: Bilateral lower lung infiltrates, similar to prior. Electronically signed by: Regan Daugherty MD Board Certified Radiologist 06/30/2018 4:49 AM EST
[2018-06-30] MEDS: Piperacil/Tazo 3.375 GM Premix 3.375 GM/50 ML PIGGYBACK IV.SIG SCH ×3 (05:12→16:02)
[2018-06-30] MEDS: Heparin - SQ 10,000 UNITS/ML Vial SQ SCH ×3 (05:12→21:00)
[2018-06-30] MEDS: MethylPREDNISolone Sod Succinate Inj 125 MG/2 ML Vial IV.PUSH SCH ×3 (05:12→21:01)
[2018-06-30] MEDS ORDERED: Dexmedetomidine Inj 200 MCG in Sodium Chlor 0.9% Inj 48 ML IV.CONT PRN (08:27)
[2018-06-30] MEDS: Multivit/Folic Acid/Minerals Chewable Tablets CHEW SCH (09:34)
[2018-06-30] MEDS: Famotidine PF Inj 20 MG/2 ML Vial IV.PUSH SCH ×2 (09:34→20:54)
[2018-06-30] MEDS: Senna/Docusate Sodium 8.6/50 MG Tablet PO SCH ×2 (09:34→20:55)
[2018-06-30] MEDS: dilTIAZem 30 MG Tablet PO SCH ×4 (09:35→20:54)
[2018-06-30] MEDS: Sod Chloride 0.9% Inj 1,000 ML IV.CONT SCH (09:35)
[2018-06-30] MEDS: Budesonide-Formoterol 80/4.5 MCG 6.9 GM Inhaler INH SCH (09:35)
[2018-06-30] MEDS: Chlorhexidine 0.12% Oral Kit 15 ML UDC OROPHARYNG SCH ×2 (09:35→19:46)
--- NOTE | 2018-06-30 09:42 | P.PNCC ---
Subjective Subjective Remarks/Hospital Course: 87[facility] with [facility]ness of breath and cough. The patient has a history of severe COPD and reports that he's been "congested" and coughing for the past 2-3 days, was unable to catch his breath earlier today so he presented to the ED via EMS. His initial pulse ox at that time was in the mid 80s. He admits to productive cough and chills, denies fever , chest pain, palpitations, nausea or vomiting. The patient's reports that the patient had a significant decline in his functional status after he was admitted in 04/2018, is now no longer ambulatory and resides in a rehab facility , unable to perform most ADLs independently. COPD history- on 3L O2 around the clock at home, uses nebulizers/ inhalers (including Symbicort), chronically on prednisone, multiple previous admissions for pneumonia (most recently in 04/2018 , admitted to ICU but not intubated), follows with Dr. Magaña of pulmonology. The patient also had a PEG tube placed on 06/20/[address] Vázquez of for dysphagia and recurrent aspiration. SUBJ 06/28/18: Critically ill male lying in bed on BiPAP. Chest x-ray shows persistent bilateral infiltrates indicating pneumonia. He is hypotensive systolic blood pressure in the 80s map 55-60. I have ordered additional 1 L fluid bolus. His clinical worsening most likely secondary to sepsis/shock 06/29/18: Patient remains intubated sedated. Was intubated yesterday for worsening hypoxemic respiratory failure and worsening septic shock. Currently on 11 mcg/min of Levophed. However oxygenation has improved. Chest x-ray shows improving but persistent left more than right basilar infiltrates. Sputum culture is pending at this. Developed A. fib with RVR will receive his Cardizem but at 30 mg every 6 hours dosing 06/30: Remains intubated sedated with fentanyl. Remains on vasopressin at 0.0/ units. Oliguric overnight creatinine bumped to 1.4. However with straight cath he made 1 L urine. Renal ultrasound ordered. Failed CPAP trial in a.m. due to agitation will start on Precedex to facilitate vent weaning Objective Vital Signs / I&O: Vital Signs 06/29/18 09:40 06/29/18 10:00 06/29/18 10:25 Temperature Pulse Rate 100 H 94 H 85 Respiratory Rate 30 H 22 Blood Pressure 108/63 103/56 L Pulse Oximetry 98 96 06/29/18 10:30 06/29/18 10:35 06/29/18 10:40 Temperature Pulse Rate 85 83 83 Respiratory Rate 24 21 20 Blood Pressure 99/52 L 99/54 L 97/53 L Pulse Oximetry 96 97 97 06/29/18 10:45 06/29/18 10:50 06/29/18 10:55 Temperature Pulse Rate 82 82 82 Respiratory Rate 22 19 24 Blood Pressure 99/56 L 101/58 L 96/55 L Pulse Oximetry 97 96 96 06/29/18 11:00 06/29/18 11:05 06/29/18 11:10 Temperature Pulse Rate 82 82 81 Respiratory Rate 24 25 H 23 Blood Pressure 101/53 L 91/54 L 90/51 L Pulse Oximetry 97 96 96 06/29/18 11:15 06/29/18 11:20 06/29/18 11:25 Temperature Pulse Rate 79 81 80 Respiratory Rate 19 24 25 H Blood Pressure 84/48 L 86/48 L 81/47 L Pulse Oximetry 96 96 96 06/29/18 11:28 06/29/18 11:30 06/29/18 11:31 Temperature Pulse Rate 80 79 80 Respiratory Rate 26 H 23 22 Blood Pressure 82/48 L 83/48 L 83/48 L Pulse Oximetry 96 96 97 06/29/18 11:35 06/29/18 11:40 06/29/18 11:45 Temperature Pulse Rate 79 79 78 Respiratory Rate 20 20 23 Blood Pressure 84/48 L 86/50 L 90/51 L Pulse Oximetry 97 98 98 06/29/18 11:50 06/29/18 11:55 06/29/18 12:00 Temperature Pulse Rate 79 81 81 Respiratory Rate 20 26 H 26 H Blood Pressure 97/54 L 104/53 L 93/53 L Pulse Oximetry 98 98 97 06/29/18 12:05 06/29/18 12:10 06/29/18 12:15 Temperature 98.4 F Pulse Rate 80 80 80 Respiratory Rate 23 24 25 H Blood Pressure 95/51 L 93/52 L 88/50 L Pulse Oximetry 97 97 97 06/29/18 14:00 06/29/18 14:15 06/29/18 14:20 Temperature Pulse Rate 93 H 88 86 Respiratory Rate 22 21 Blood Pressure 111/57 L 109/57 L Pulse Oximetry 96 95 06/29/18 14:25 06/29/18 14:30 06/29/18 14:35 Temperature Pulse Rate 85 84 83 Respiratory Rate 20 20 20 Blood Pressure 100/58 L 98/57 L 96/55 L Pulse Oximetry 94 L 94 L 94 L 06/29/18 14:40 06/29/18 14:45 06/29/18 14:50 Temperature Pulse Rate 82 82 81 Respiratory Rate 21 20 19 Blood Pressure 95/54 L 96/55 L 98/56 L Pulse Oximetry 94 L 94 L 94 L 06/29/18 14:55 06/29/18 15:00 06/29/18 15:05 Temperature Pulse Rate 82 81 81 Respiratory Rate 21 23 24 Blood Pressure 98/55 L 95/54 L 95/50 L Pulse Oximetry 94 L 94 L 95 06/29/18 15:10 06/29/18 15:15 06/29/18 15:20 Temperature Pulse Rate 82 81 81 Respiratory Rate 21 21 20 Blood Pressure 94/52 L 95/52 L 99/57 L Pulse Oximetry 95 95 95 06/29/18 15:25 06/29/18 15:30 06/29/18 15:35 Temperature Pulse Rate 82 83 79 Respiratory Rate 20 19 20 Blood Pressure 98/55 L 99/56 L 102/54 L Pulse Oximetry 95 95 95 06/29/18 15:37 06/29/18 15:40 06/29/18 15:45 Temperature Pulse Rate 79 79 79 Respiratory Rate 21 21 20 Blood Pressure 98/55 L 99/56 L Pulse Oximetry 95 96 96 06/29/18 15:50 06/29/18 15:55 06/29/18 16:00 Temperature 97.8 F Pulse Rate 77 78 77 Respiratory Rate 20 20 20 Blood Pressure 100/56 L 98/56 L 99/58 L Pulse Oximetry 96 96 96 06/29/18 16:05 06/29/18 16:10 06/29/18 16:15 Temperature Pulse Rate 77 77 75 Respiratory Rate 21 21 20 Blood Pressure 99/52 L 102/56 L 102/57 L Pulse Oximetry 97 97 97 06/29/18 18:00 06/29/18 18:20 06/29/18 18:25 Temperature Pulse Rate 48 L 74 74 Respiratory Rate 20 20 Blood Pressure 98/55 L 98/55 L Pulse Oximetry 98 98 06/29/18 18:30 06/29/18 18:35 06/29/18 18:40 Temperature Pulse Rate 73 71 70 Respiratory Rate 14 20 20 Blood Pressure 99/55 L 100/56 L 102/55 L Pulse Oximetry 98 98 98 06/29/18 18:45 06/29/18 18:50 06/29/18 18:55 Temperature Pulse Rate 69 68 68 Respiratory Rate 20 20 20 Blood Pressure 102/55 L 102/58 L 99/54 L Pulse Oximetry 98 98 97 06/29/18 19:00 06/29/18 19:05 06/29/18 19:10 Temperature Pulse Rate 67 66 66 Respiratory Rate 21 20 26 H Blood Pressure 99/56 L 97/52 L 97/56 L Pulse Oximetry 97 97 97 06/29/18 19:15 06/29/18 19:20 06/29/18 19:25 Temperature Pulse Rate 66 66 65 Respiratory Rate 20 22 22 Blood Pressure 99/56 L 101/55 L 105/58 L Pulse Oximetry 97 98 98 06/29/18 19:30 06/29/18 19:35 06/29/18 19:40 Temperature Pulse Rate 65 65 65 Respiratory Rate 26 H 24 20 Blood Pressure 103/54 L 104/57 L 105/56 L Pulse Oximetry 98 97 98 06/29/18 19:45 06/29/18 19:50 06/29/18 19:55 Temperature Pulse Rate 64 64 64 Respiratory Rate 23 20 20 Blood Pressure 106/56 L 106/58 L 104/55 L Pulse Oximetry 98 98 98 06/29/18 20:00 06/29/18 20:05 06/29/18 20:10 Temperature 97.9 F Pulse Rate 64 64 63 Respiratory Rate 20 20 20 Blood Pressure 111/59 L 108/55 L 110/55 L Pulse Oximetry 98 98 98 06/29/18 20:13 06/29/18 20:15 06/29/18 20:20 Temperature Pulse Rate 66 65 Respiratory Rate 20 19 20 Blood Pressure 112/58 L 106/53 L Pulse Oximetry 99 97 97 06/29/18 20:25 06/29/18 20:30 06/29/18 20:45 Temperature Pulse Rate 63 63 63 Respiratory Rate 20 20 20 Blood Pressure 109/55 L 103/56 L 107/57 L Pulse Oximetry 97 97 97 06/29/18 21:00 06/29/18 21:15 06/29/18 21:30 Temperature Pulse Rate 62 62 61 Respiratory Rate 22 20 19 Blood Pressure 103/58 L 103/59 L 112/57 L Pulse Oximetry 99 98 100 06/29/18 21:45 06/29/18 22:00 06/29/18 22:15 Temperature Pulse Rate 61 60 60 Respiratory Rate 21 20 26 H Blood Pressure 107/59 L 113/57 L 108/55 L Pulse Oximetry 99 99 99 06/29/18 22:30 06/29/18 22:45 06/29/18 23:00 Temperature Pulse Rate 61 63 58 L Respiratory Rate 30 H 16 21 Blood Pressure 107/57 L 118/61 111/56 L Pulse Oximetry 99 100 99 06/29/18 23:15 06/29/18 23:22 06/29/18 23:30 Temperature Pulse Rate 59 L 61 59 L Respiratory Rate 31 H 20 21 Blood Pressure 105/58 L 107/55 L Pulse Oximetry 99 98 98 06/29/18 23:45 06/30/18 00:00 06/30/18 00:15 Temperature 97.7 F Pulse Rate 59 L 60 56 L Respiratory Rate 30 H 33 H 36 H Blood Pressure 107/59 L 115/56 L 112/56 L Pulse Oximetry 99 100 99 06/30/18 00:30 06/30/18 00:45 06/30/18 01:00 Temperature Pulse Rate 56 L 54 L 55 L Respiratory Rate 33 H 26 H 27 H Blood Pressure 110/56 L 113/56 L 115/57 L Pulse Oximetry 99 100 100 06/30/18 01:15 06/30/18 01:30 06/30/18 01:45 Temperature Pulse Rate 54 L 54 L 54 L Respiratory Rate 25 H 20 20 Blood Pressure 113/59 L 113/59 L 113/59 L Pulse Oximetry 99 100 99 06/30/18 02:00 06/30/18 02:15 06/30/18 02:30 Temperature Pulse Rate 53 L 52 L 60 Respiratory Rate 20 21 20 Blood Pressure 118/60 115/59 L 118/60 Pulse Oximetry 99 99 99 06/30/18 02:45 06/30/18 03:00 06/30/18 03:15 Temperature Pulse Rate 53 L 56 L 54 L Respiratory Rate 22 20 19 Blood Pressure 117/59 L 115/58 L 117/61 Pulse Oximetry 98 98 98 06/30/18 03:16 06/30/18 03:18 06/30/18 03:31 Temperature Pulse Rate 52 L 106 H Respiratory Rate 20 20 23 Blood Pressure 104/62 Pulse Oximetry 98 97 06/30/18 03:45 06/30/18 04:00 06/30/18 06:00 Temperature 97.8 F Pulse Rate 78 71 50 L Respiratory Rate 16 20 Blood Pressure 102/54 L 102/52 L Pulse Oximetry 98 95 06/30/18 07:40 Temperature Pulse Rate 56 L Respiratory Rate 20 Blood Pressure Pulse Oximetry 100 Intake & Output 06/29/18 06/30/18 06/30/18 18:59 06:59 18:59 Intake Total 1800 / 1800 1450 / 1450 Output Total 100 / 100 Balance 1800 / 1800 1350 / 1350 Weight 63.5 kg Intake: IV 1800 / 1800 1450 / 1450 NS Inj 1,000 ML @ 84 mls/hr IV. 1000 / 1000 1000 / 1000 CONT .[id number] EMILIA Rx#:[id number] Pitressin Inj 40 UNIT In NS Inj 100 / 100 98 ML @ 0.04 UNITS/MIN 6 mls/ hr IV.CONT CONT EMILIA Rx#: [id number] Azithromycin Inj 500 MG In NS 250 / 250 Inj 250 ML @ 250 mls/hr IV.SIG Q24H EMILIA Rx#:[id number] Levophed-Dextrose 4 mg/250 ml 200 / 200 Drip 4 mg In 250 ml @ 2 MCG/MIN 7.5 mls/hr IV.SIG TITRATE PRN Rx#:[id number] Zosyn 3.375 GM Premix 3.375 gm 100 / 100 100 / 100 In 50 ml @ 100 mls/hr IV.SIG Q6H EMILIA Rx#:[id number] Vancomycin Inj 1,000 MG In NS 250 / 250 Inj 250 ML @ 250 mls/hr IV.SIG Q24H EMILIA Rx#:[id number] fentaNYL 10 mcg/mL Premix Drip 250 / 250 2,500 mcg In 250 ml @ 50 MCG/HR 5 mls/hr IV.SIG TITRATE PRN Rx #:[id number] Oral 0 / 0 Output: Urine Amount (Catheter) 100 / 100 Condom 100 / 100 Other: # Incontinent Voids 1 # Bowel Movements 0 Result Diagrams: 06/30/18 03:25 06/30/18 03:25 Objective Remarks: GEN: Frail-appearing critically ill elderly male lying in bed, on mechanical ventilation HEENT: NCAT, PERRL NECK: Trachea midline CARDIO: Tachycardic, irregular. Atrial fibrillation with RVR. Currently hypotensive on vasopressin RESP: On PRVC/AC. Air entry equal bilaterally but diminished at the bases. Few basilar crackles heard. Bedside ultrasound small left effusion ABD/GI: PEG tube in place, site clean/ dry/ intact, abdomen soft and non-tender EXT/MSK: No peripheral edema SKIN: Warm and well-perfused, stage 1 sacral decubitus NEURO: Intubated sedated with fentanyl. Moves extremities spontaneously. Gets agitated on lightening sedation. Did not follow commands Assessment and Plan - Assessment and Plan Plan: 87yM presenting with COPD exacerbation, septic shock secondary to HCAP, acute hypoxic respiratory failure requiring mechanical ventilation, now very critical. Remains critically ill on Levophed and mechanical ventilatory support. Now with atrial fibrillation and RVR NEURO: History of restless leg syndrome * Postintubation sedation with Versed and fentanyl infusion * Start Precedex to facilitate ventilator weaning * Daily sedation vacation in 24 hours * PRN tylenol for pain * Continue home dose of requip CARDIO: Septic shock Atrial fibrillation with RVR Currently in septic shock, continue vasopressin to maintain map above 65 due to tachycardia Cardizem 10 mg IV push followed by 30 mg every 6 hours p.o. Hold home Cardizem 120 mg History of essential hypertension, atrial fibrillation, coronary artery disease * Continue home dose of aspirin, pravastatin * Rate control if needed with IV Cardizem gtt. RESP: Septic shock secondary to healthcare associated pneumonia COPD with acute exacerbation Acute hypoxic respiratory failure * Intubated and placed on mechanical ventilation on 06/28/2018. PRVC AC * Continue scheduled and PRN nebs * Continue steroids Solu-Medrol 60 mg IV every 8 hours * Received 1 dose of IV magnesium as well * Treat for recurrent HCAP with azithromycin, zosyn, vancomycin * Trend lactic acid until clear * F/U urine legionella. * Follow up cultures and MRSA swab * Family wants to maintain alternate code, no CPR or intubation and mechanical ventilation okay for limited. Of time F/E/N: History of dysphagia Severe protein calorie malnutrition as evidenced by frailty and hypoalbuminemia * Trickle TFs via PEG * Maintenance fluids * ICU electrolyte protocol ENDO: History of hypothyroidism * Continue home dose of Synthroid ID: HCAP Septic shock Gram-positive bacteremia * As outlined above. Follow-up on cultures, continue azithromycin Zosyn and vancomycin * Follow-up on sputum culture. Blood cultures negative to * Coag negative staph bacteremia 4 out of 4 bottles * 2D echo to rule out endocarditis * ID consult PROPHY: * PPI (patient is on omeprazole at home) * SCDs, SQH Overall: This patient is critically ill with acute hypoxic respiratory failure requiring non-invasive ventilation and severe sepsis secondary to HCAP. He requires ICU level of care. I have also requested a palliative care consultation as this is the patient's 3rd hospitalization in 3 months related to his COPD/ recurrent pneumonia and he will undoubtedly continue to have sequelae of both of these issues going forward. Counseling/ Coordination of Care: This patient is critically ill with impairment of one or more vital organ systems with a high probability of imminent or life-threatening deterioration. High-complexity medical decision making was required to support vital organ function and/ or prevent deterioration in the patient's condition. Total critical care time spent is 45 minutes giving full attention to this patient. This includes examining the patient, gathering history from someone other than the patient (i.e. chart review), discussing the patient's care with other providers, managing the patient's bipap settings, ordering and interpreting radiologic studies, ordering and interpreting laboratory values, and documentation. Amount of time is separate from teaching, counseling the patient and/or family, and exclusive of procedures.
--- NOTE | 2018-06-30 11:15 | US ---
EXAM DATE: 06/30/2018 11:10 AM EST AGE/SEX: 87 years / Male INDICATIONS: Increased Bun and Creatinine. CLINICAL DATA: This is the patient's subsequent encounter. Patient reports that signs and symptoms h ave been present for 1 day and indicates a pain score of Nonresponsive. MEDICAL/SURGICAL HISTORY: . Aneurysm, abdominal. Gastroesophageal reflux disease. Hypertension. Osteoporosis. Hyperlipidemia. A-fib. Pneumonia. CAD. . Cholecystectomy. Tonsillectomy. Coronary art zulma bypass graft. COMPARISON: O, US KIDNEY/RENAL/BLADDER, 05/09/2018. . MEASUREMENTS: Right Kidney:__11.6 x 4.8 x 4.9 cm Left Kidney:__13.5 x 5.0 x 4.6 cm FINDINGS: Right Kidney: Increased echogenicity. No mass or hydronephrosis. Left Kidney: Increased echogenicity. No mass or hydronephrosis. Bladder: Decompressed. Not well evaluated. Other: None. CONCLUSION: Slightly increased renal cortical echogenicity. No hydronephrosis. Electronically signed by: Tulio Eric MD Board Certified Radiologist 06/30/2018 11:13 AM EST
[2018-06-30 11:52] LABS: ABG Base Excess -6.6 mmol/L (-2-2); ABG PCO2 34 mmHg (38-42); ABG PO2 94 mmHG (61-120)
--- NOTE | 2018-06-30 13:47 | P.CONID ---
History of Present Illness Service: ID Consult date: 06/30/18 Requesting Physician: Brenton Antunez Reason for Consult: GPC bacteremia, septic shock Primary Care Provider: Jem Kaufman MD Chief Complaint: Shortness of breath History of Present Illness: 87 yo male who resides in long term presented 3 days ago with respiratory complains Pt has a history of COPD who is on 2.5 L of oxygen at home. reportedly he has had dyspnea for several weeks but it has worsened over the past few days and was recently diagnosed with bilateral pneumonia. Pt was intubated He is doing better from resp standpoint. On 40% FiO2 and PEEP [address] Gregory . She is planning to extubate him today Pt is on Azithromycin, Piperacillin/Tazobactam and Vancomycin He is growing staph haemolyticus in 4/4 bottles Apparently he was retaining urine, but UA was unremarkbale CXR showed Bilateral lower lung infiltrates no h/o prosthetic valces or pacer, AICD Review of Systems unobtainable due to endotracheal tube PMFSH - History History 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, Family Member, 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 - Medical History Medical History: Medical History (Last Reviewed 06/30/18 @ 13:36 by Svetlana Cleveland MD) Atherosclerotic heart disease Chronic pain Failure to thrive Pneumonia Protein calorie malnutrition Abdominal aortic aneurysm Abnormality of gait due to impairment of balance Chronic pneumonia Coronary artery disease Essential hypertension Gastroesophageal reflux disease Gout History of atrial fibrillation History of cataract Hyperlipidemia Hypothyroidism Osteoarthritis Restless leg syndrome - Surgical History Surgical History: Surgical History (Last Reviewed 06/30/18 @ 13:36 by Svetlana Cleveland MD) Gastrostomy in place History of cholecystectomy History of coronary artery bypass graft History of coronary artery stent placement History of tonsillectomy - Family History Family History: Family History (Last Reviewed 06/30/18 @ 13:36 by Svetlana Clevealnd MD) Other Family history of coronary artery disease Family history pertaining to father Patient's mother is - Social History I have reviewed the patient's Social History: Yes - Tobacco History Second Hand Smoke Exposure: No Smoking Status: Former smoker Tobacco Type: Cigarettes - Alcohol History How Often Do You Have a Drink Containing Alcohol: Never - Substance Use History Substance History: No History of Abuse - Travel History Recent Travel in the [place] Within the Last 8 Weeks: No Recent Travel Out of the Country Within the Last 8 Weeks: No - Immunization History Tetanus Immunization: Unsure Hx Influenza Vaccine This Season: No Medications and Allergies Active Medications: Active Medications Acetaminophen (Tylenol) 650 mg PO Q6H PRN PRN Reason: PAIN 1-10 AND/OR FEVER >101F Al Hydroxide/Mg Hydroxide (Milk Of Natividad Liq) 30 ml PO Q12H PRN PRN Reason: Mild Constipation Albuterol (Duoneb Neb (Prn)) 1 ampul NEB Q2HR NEB PRN PRN Reason: WHEEZING Albuterol (Duoneb Neb (Vidya)) 1 ampul NEB Q4HR NEB [facility] Last Admin: 06/30/18 07:39 Dose: 1 ampul Aspirin (Aspirin Chew) 81 mg G-TUBE DAILY [facility] Last Admin: 06/30/18 09:34 Dose: 81 mg Bisacodyl (Dulcolax Supp) 10 mg RECTAL DAILY PRN PRN Reason: SEVERE CONSITIPATION Budesonide/Formoterol Fumarate (Symbicort 80/4.5 Mcg Inh) 1 puff INH DAILY [facility] Last Admin: 06/30/18 09:35 Dose: Not Given Chlorhexidine Gluconate (Chlorhexidine 2% Cloth) 3 pack TOPICAL DAILY@0400 [facility] Stop: 07/03/18 03:59 Last Admin: 06/30/18 03:00 Dose: 3 pack Chlorhexidine Gluconate (Chlorhexidine 2% Cloth) 3 pack TOPICAL DAILY@0400 PRN PRN Reason: Extra cloth needed Stop: 07/03/18 03:59 Chlorhexidine Gluconate (Peridex 0.12% Oral Kit) 15 ml OROPHARYNG BID@0800, 2000 [facility] Last Admin: 06/30/18 09:35 Dose: 15 ml Diltiazem HCl (Cardizem) 120 mg NG/OG DAILY [facility] Last Admin: 06/28/18 08:07 Dose: 120 mg Diltiazem HCl (Cardizem) 30 mg PO QID [facility] Last Admin: 06/30/18 12:39 Dose: Not Given Famotidine (Pepcid Pf Inj) 20 mg IV.PUSH Q12HR [facility] Last Admin: 06/30/18 09:34 Dose: 20 mg Heparin Sodium (Porcine) (Heparin Inj) 5,000 units SQ Q8H [facility] Last Admin: 06/30/18 05:12 Dose: 5,000 units Magnesium Sulfate 4 gm/ Sodium (Chloride) 100 mls @ 50 mls/hr IV.SIG UNSCH PRN PRN Reason: For Magnesium 0.9 - 1.1 mg/dL Magnesium Sulfate 2 gm/ Sodium (Chloride) 100 mls @ 50 mls/hr IV.SIG UNSCH PRN PRN Reason: For Magnesium 1.2 - 1.6 mg/dL Sodium Chloride (Ns Inj) 1,000 mls @ 84 mls/hr IV.CONT .[id number] [facility] Last Admin: 06/30/18 09:35 Dose: Not Given Potassium Chloride (Kcl 40 Meq Premix Inj) 40 meq in 100 mls @ 25 mls/hr IV.SIG Q2H PRN PRN Reason: For Potassium 2.8 - 3.2 mEq/L Potassium Chloride (Kcl 20 Meq Premix Inj) 20 meq in 100 mls @ 50 mls/hr IV.SIG Q2H PRN PRN Reason: For Potassium 3.3 - 3.5 mEq/L Potassium Chloride (Kcl 40 Meq Premix Inj) 40 meq in 100 mls @ 25 mls/hr IV.SIG UNSCH PRN PRN Reason: For Potassium 3.3 - 3.5 mEq/L Potassium Phosphate 30 mmol/ (Sodium Chloride) 260 mls @ 42 mls/hr IV.SIG UNSCH PRN PRN Reason: SEE LABEL COMMENTS Potassium Chloride (Kcl 20 Meq Premix Inj) 20 meq in 100 mls @ 50 mls/hr IV.SIG Q2H PRN PRN Reason: For Potassium 2.8 - 3.2 mEq/L Sodium Phosphate 30 mmol/ (Sodium Chloride) 260 mls @ 42 mls/hr IV.SIG UNSCH PRN PRN Reason: For Phosphorus < 2.5 mg/dL Azithromycin 500 mg/ Sodium (Chloride) 250 mls @ 250 mls/hr IV.SIG Q24H [facility] Last Infusion: 06/29/18 18:16 Dose: Infused Piperacillin/Tazobactam/Dextrose (Zosyn 3.375 Gm Premix) 3.375 gm in 50 mls @ 100 mls/hr IV.SIG Q6H [facility] Last Admin: 06/30/18 12:38 Dose: 100 mls/hr Vancomycin HCl 1,000 mg/ (Sodium Chloride) 250 mls @ 250 mls/hr IV.SIG Q24H [facility] Last Infusion: 06/29/18 21:40 Dose: Infused Propofol (Diprivan 1000 Mg/100 Ml Inj) 1,000 mg in 100 mls @ 1.86 mls/hr IV.CONT TITRATE PRN; Protocol PRN Reason: Per Protocol Last Titration: 06/29/18 01:40 Dose: 0 mcg/kg/min, 0 mls/hr Fentanyl (Fentanyl 10 Mcg/Ml Premix Drip) 2,500 mcg in 250 mls @ 5 mls/hr IV.SIG TITRATE PRN; Protocol PRN Reason: Per Protocol Last Titration: 06/30/18 03:38 Dose: 200 mcg/hr, 20 mls/hr Vasopressin 40 unit/ Sodium (Chloride) 100 mls @ 6 mls/hr IV.CONT CONT VIDYA; Protocol Last Admin: 06/30/18 02:00 Dose: 0.04 units/min, 6 mls/hr Midazolam HCl (Versed Inj) 100 mg in 100 mls @ 2 mls/hr IV.CONT TITRATE PRN; Protocol PRN Reason: See protocol Last Titration: 06/29/18 10:00 Dose: 0 mg/hr, 0 mls/hr Dexmedetomidine HCl 200 mcg/ (Sodium Chloride) 50 mls @ 3.17 mls/hr IV.CONT TITRATE PRN; Protocol PRN Reason: Per Protocol Last Admin: 06/30/18 09:43 Dose: 0.2 mcg/kg/hr, 3.17 mls/hr Lactulose (Lactulose Liq) 30 ml PO DAILY PRN PRN Reason: SEVERE CONSITIPATION Lansoprazole (Prevacid Solutab) 30 mg NG/OG DAILY [facility] Last Admin: 06/30/18 09:34 Dose: 30 mg Levothyroxine Sodium (Synthroid) 25 mcg G-TUBE DAILY@0600 [facility] Last Admin: 06/30/18 05:12 Dose: 25 mcg Magnesium Oxide (Mag-Ox) 800 mg PO UNSCH PRN PRN Reason: For Magnesium 1.2 - 1.6 mg/dL Methylprednisolone Sodium Succinate (Solumedrol Inj) 60 mg IV.PUSH Q8HR [facility] Last Admin: 06/30/18 05:12 Dose: 60 mg Midazolam HCl (Versed Inj) 2 mg IV.PUSH Q1H PRN PRN Reason: Breakthrough agitation Last Admin: 06/30/18 09:34 Dose: 2 mg Miscellaneous Information ([facility] Ordered Lab Info) 0 each OTHER ONCE ONE Stop: 06/30/18 21:46 Miscellaneous Medication () 1 each OROPHARYNG 0000,0400,1200,1600 [facility] Last Admin: 06/30/18 12:38 Dose: 1 each Multivitamins/Folic Acid/Vitamin C (Flintstones) 1 tab CHEW DAILY [facility] Last Admin: 06/30/18 09:34 Dose: 1 tab Ondansetron HCl (Zofran Inj) 4 mg IV.PUSH Q6H PRN PRN Reason: NAUSEA OR VOMITING Pharmacy Profile Note (Vancomycin Consult Pharmacy) 1 each OTHER UNSCH PRN PRN Reason: Pharmacy to dose Potassium Bicarb/Potassium Chloride (K-Lyte Cl Eff) 50 meq PO UNSCH PRN PRN Reason: For Potassium 3.3 - 3.5 mEq/L Potassium Phosphate (K-Phos Original) 2,000 mg PO Q4H PRN PRN Reason: Phosphorus Less Than 2.5 mg/dL Last Admin: 06/28/18 14:22 Dose: 2,000 mg Potassium Phosphate (K-Phos Original) 2,000 mg PO UNSCH PRN PRN Reason: SEE LABEL COMMENTS Pravastatin Sodium (Pravachol) 80 mg G-TUBE DAILY [facility] Last Admin: 06/30/18 09:34 Dose: 80 mg Ropinirole HCl (Requip) 0.5 mg G-TUBE HS [facility] Last Admin: 06/29/18 20:05 Dose: 0.5 mg Senna/Docusate Sodium ([place]-Colace) 1 tab PO BID [facility] Last Admin: 06/30/18 09:34 Dose: 1 tab Sennosides (Senokot) 17.2 mg PO Q12H PRN PRN Reason: Moderate Constipation Sodium Chloride (Ns Flush) 2 ml IV.FLUSH BID [facility] Last Admin: 06/30/18 12:37 Dose: 2 ml Sodium Chloride (Ns Flush) 2 ml IV.FLUSH PRN PRN PRN Reason: FLUSH AFTER USING IV ACCESS Allergies Allergy/AdvReac Type Severity Reaction Status Date / Time peanut oil Allergy Severe Diarrhea Verified 06/18/18 18:41 peanut Allergy Intermediate Diarrhea Verified 06/18/18 18:41 Home Medications Medication Instructions Recorded Confirmed Type aspirin [Aspir-81] 81 mg FEEDING TUBE DAILY 05/08/18 06/27/18 History cholecalciferol (vitamin D3) 1,000 unit FEEDING TUBE DAILY 05/08/18 06/27/18 History [Vitamin D3] levothyroxine 25 mcg FEEDING TUBE DAILY 05/08/18 06/27/18 History pravastatin 80 mg FEEDING TUBE DAILY 05/08/18 06/27/18 History ropinirole 0.5 mg FEEDING TUBE HS 05/08/18 06/27/18 History albuterol sulfate 0.63 mg INHALATION Q2H PRN 06/27/18 06/27/18 History budesonide-formoterol [Symbicort] 1 puff INHALATION DAILY 06/27/18 06/27/18 History diltiazem HCl 120 mg FEEDING TUBE DAILY 06/27/18 06/27/18 History ipratropium-albuterol 1 amp NEB Q4H 06/27/18 06/27/18 History levofloxacin 750 mg FEEDING TUBE DAILY 06/27/18 06/27/18 History magnesium citrate [Citroma] 296 ml FEEDING TUBE DAILY PRN 06/27/18 06/27/18 History omeprazole 40 mg DAILY 06/27/18 06/27/18 History prednisone 20 mg FEEDING TUBE DIRECTED 06/27/18 06/27/18 History Exam Vital signs: Vital Signs 06/29/18 14:00 06/29/18 14:15 06/29/18 14:20 Temperature Pulse Rate 93 H 88 86 Respiratory Rate 22 21 Blood Pressure 111/57 L 109/57 L Pulse Oximetry 96 95 06/29/18 14:25 06/29/18 14:30 06/29/18 14:35 Temperature Pulse Rate 85 84 83 Respiratory Rate 20 20 20 Blood Pressure 100/58 L 98/57 L 96/55 L Pulse Oximetry 94 L 94 L 94 L 06/29/18 14:40 06/29/18 14:45 06/29/18 14:50 Temperature Pulse Rate 82 82 81 Respiratory Rate 21 20 19 Blood Pressure 95/54 L 96/55 L 98/56 L Pulse Oximetry 94 L 94 L 94 L 06/29/18 14:55 06/29/18 15:00 06/29/18 15:05 Temperature Pulse Rate 82 81 81 Respiratory Rate 21 23 24 Blood Pressure 98/55 L 95/54 L 95/50 L Pulse Oximetry 94 L 94 L 95 06/29/18 15:10 06/29/18 15:15 12/19/18 15:20 Temperature Pulse Rate 82 81 81 Respiratory Rate 21 21 20 Blood Pressure 94/52 L 95/52 L 99/57 L Pulse Oximetry 95 95 95 06/29/18 15:25 06/29/18 15:30 06/29/18 15:35 Temperature Pulse Rate 82 83 79 Respiratory Rate 20 19 20 Blood Pressure 98/55 L 99/56 L 102/54 L Pulse Oximetry 95 95 95 06/29/18 15:37 06/29/18 15:40 06/29/18 15:45 Temperature Pulse Rate 79 79 79 Respiratory Rate 21 21 20 Blood Pressure 98/55 L 99/56 L Pulse Oximetry 95 96 96 06/29/18 15:50 06/29/18 15:55 06/29/18 16:00 Temperature 97.8 F Pulse Rate 77 78 77 Respiratory Rate 20 20 20 Blood Pressure 100/56 L 98/56 L 99/58 L Pulse Oximetry 96 96 96 06/29/18 16:05 06/29/18 16:10 06/29/18 16:15 Temperature Pulse Rate 77 77 75 Respiratory Rate 21 21 20 Blood Pressure 99/52 L 102/56 L 102/57 L Pulse Oximetry 97 97 97 06/29/18 18:00 06/29/18 18:20 06/29/18 18:25 Temperature Pulse Rate 48 L 74 74 Respiratory Rate 20 20 Blood Pressure 98/55 L 98/55 L Pulse Oximetry 98 98 06/29/18 18:30 06/29/18 18:35 06/29/18 18:40 Temperature Pulse Rate 73 71 70 Respiratory Rate 14 20 20 Blood Pressure 99/55 L 100/56 L 102/55 L Pulse Oximetry 98 98 98 06/29/18 18:45 06/29/18 18:50 06/29/18 18:55 Temperature Pulse Rate 69 68 68 Respiratory Rate 20 20 20 Blood Pressure 102/55 L 102/58 L 99/54 L Pulse Oximetry 98 98 97 06/29/18 19:00 06/29/18 19:05 06/29/18 19:10 Temperature Pulse Rate 67 66 66 Respiratory Rate 21 20 26 H Blood Pressure 99/56 L 97/52 L 97/56 L Pulse Oximetry 97 97 97 06/29/18 19:15 06/29/18 19:20 06/29/18 19:25 Temperature Pulse Rate 66 66 65 Respiratory Rate 20 22 22 Blood Pressure 99/56 L 101/55 L 105/58 L Pulse Oximetry 97 98 98 06/29/18 19:30 06/29/18 19:35 06/29/18 19:40 Temperature Pulse Rate 65 65 65 Respiratory Rate 26 H 24 20 Blood Pressure 103/54 L 104/57 L 105/56 L Pulse Oximetry 98 97 98 06/29/18 19:45 06/29/18 19:50 06/29/18 19:55 Temperature Pulse Rate 64 64 64 Respiratory Rate 23 20 20 Blood Pressure 106/56 L 106/58 L 104/55 L Pulse Oximetry 98 98 98 06/29/18 20:00 06/29/18 20:05 06/29/18 20:10 Temperature 97.9 F Pulse Rate 64 64 63 Respiratory Rate 20 20 20 Blood Pressure 111/59 L 108/55 L 110/55 L Pulse Oximetry 98 98 98 06/29/18 20:13 06/29/18 20:15 06/29/18 20:20 Temperature Pulse Rate 66 65 Respiratory Rate 20 19 20 Blood Pressure 112/58 L 106/53 L Pulse Oximetry 99 97 97 06/29/18 20:25 06/29/18 20:30 06/29/18 20:45 Temperature Pulse Rate 63 63 63 Respiratory Rate 20 20 20 Blood Pressure 109/55 L 103/56 L 107/57 L Pulse Oximetry 97 97 97 06/29/18 21:00 06/29/18 21:15 06/29/18 21:30 Temperature Pulse Rate 62 62 61 Respiratory Rate 22 20 19 Blood Pressure 103/58 L 103/59 L 112/57 L Pulse Oximetry 99 98 100 06/29/18 21:45 06/29/18 22:00 06/29/18 22:15 Temperature Pulse Rate 61 60 60 Respiratory Rate 21 20 26 H Blood Pressure 107/59 L 113/57 L 108/55 L Pulse Oximetry 99 99 99 06/29/18 22:30 06/29/18 22:45 06/29/18 23:00 Temperature Pulse Rate 61 63 58 L Respiratory Rate 30 H 16 21 Blood Pressure 107/57 L 118/61 111/56 L Pulse Oximetry 99 100 99 06/29/18 23:15 06/29/18 23:22 06/29/18 23:30 Temperature Pulse Rate 59 L 61 59 L Respiratory Rate 31 H 20 21 Blood Pressure 105/58 L 107/55 L Pulse Oximetry 99 98 98 06/29/18 23:45 06/30/18 00:00 06/30/18 00:15 Temperature 97.7 F Pulse Rate 59 L 60 56 L Respiratory Rate 30 H 33 H 36 H Blood Pressure 107/59 L 115/56 L 112/56 L Pulse Oximetry 99 100 99 06/30/18 00:30 06/30/18 00:45 06/30/18 01:00 Temperature Pulse Rate 56 L 54 L 55 L Respiratory Rate 33 H 26 H 27 H Blood Pressure 110/56 L 113/56 L 115/57 L Pulse Oximetry 99 100 100 06/30/18 01:15 06/30/18 01:30 06/30/18 01:45 Temperature Pulse Rate 54 L 54 L 54 L Respiratory Rate 25 H 20 20 Blood Pressure 113/59 L 113/59 L 113/59 L Pulse Oximetry 99 100 99 06/30/18 02:00 06/30/18 02:15 06/30/18 02:30 Temperature Pulse Rate 53 L 52 L 60 Respiratory Rate 20 21 20 Blood Pressure 118/60 115/59 L 118/60 Pulse Oximetry 99 99 99 06/30/18 02:45 06/30/18 03:00 06/30/18 03:15 Temperature Pulse Rate 53 L 56 L 54 L Respiratory Rate 22 20 19 Blood Pressure 117/59 L 115/58 L 117/61 Pulse Oximetry 98 98 98 06/30/18 03:16 06/30/18 03:18 06/30/18 03:31 Temperature Pulse Rate 52 L 106 H Respiratory Rate 20 20 23 Blood Pressure 104/62 Pulse Oximetry 98 97 06/30/18 03:45 06/30/18 04:00 06/30/18 06:00 Temperature 97.8 F Pulse Rate 78 71 50 L Respiratory Rate 16 20 Blood Pressure 102/54 L 102/52 L Pulse Oximetry 98 95 06/30/18 07:40 06/30/18 08:00 06/30/18 10:00 Temperature 98.1 F Pulse Rate 56 L 54 L 67 Respiratory Rate 20 20 Blood Pressure 120/59 L Pulse Oximetry 100 99 06/30/18 11:57 06/30/18 12:00 Temperature Pulse Rate 62 Respiratory Rate 16 Blood Pressure Pulse Oximetry Intake & Output 06/29/18 06/30/18 06/30/18 18:59 06:59 18:59 Intake Total 1800 / 1800 1450 / 1450 0 / 0 Output Total 100 / 100 950 / 950 Balance 1800 / 1800 1350 / 1350 -950 / -950 Weight 63.5 kg Intake: IV 1800 / 1800 1450 / 1450 NS Inj 1,000 ML @ 84 mls/hr IV. 1000 / 1000 1000 / 1000 CONT .[id number] VIDYA Rx#:[id number] Pitressin Inj 40 UNIT In NS Inj 100 / 100 98 ML @ 0.04 UNITS/MIN 6 mls/ hr IV.CONT CONT VIDYA Rx#: [id number] Azithromycin Inj 500 MG In NS 250 / 250 Inj 250 ML @ 250 mls/hr IV.SIG Q24H [facility] Rx#:[id number] Levophed-Dextrose 4 mg/250 ml 200 / 200 Drip 4 mg In 250 ml @ 2 MCG/MIN 7.5 mls/hr IV.SIG TITRATE PRN Rx#:[id number] Zosyn 3.375 GM Premix 3.375 gm 100 / 100 100 / 100 In 50 ml @ 100 mls/hr IV.SIG Q6H [facility] Rx#:[id number] Vancomycin Inj 1,000 MG In NS 250 / 250 Inj 250 ML @ 250 mls/hr IV.SIG Q24H [facility] Rx#:[id number] fentaNYL 10 mcg/mL Premix Drip 250 / 250 2,500 mcg In 250 ml @ 50 MCG/HR 5 mls/hr IV.SIG TITRATE PRN Rx #:[id number] Oral 0 / 0 0 / 0 Output: Urine Amount (Catheter) 100 / 100 950 / 950 Condom 100 / 100 Straight 950 / 950 Other: # Incontinent Voids 1 # Bowel Movements 0 0 - Constitutional no acute distress, average body habitus - Routine HEENT Exam Head: Present: normocephalic, atraumatic Eye: Present: EOMI, PERRL ENT: Present: mucous membranes moist, oropharynx clear - Routine Neck Exam Present: supple. Absent: JVD - Routine Respiratory Exam Present: patient mechanically ventilated, CTA bilaterally - Routine Cardiovascular Exam Present: RRR, S1, S2. Absent: murmur, gallop, rubs - Routine Abdominal Exam Present: soft, normoactive bowel sounds. Absent: tenderness, distended, organomegaly, mass - Routine Extremities Exam Present: edema (trace). Absent: cyanosis, clubbing - Routine Skin Exam Present: dry, warm. Absent: jaundice - Routine Neurological Exam lethargic responds to pain, touch not following commnads moves spontaneously - Routine Psychiatric Exam Present: unable to assess Results - Labs CBC & Chem 7: 06/30/18 03:25 06/30/18 03:25 Labs: Laboratory Results - last 24 hr 06/30/18 06/30/18 06/30/18 03:25 03:25 10:23 WBC 6.2 D RBC 2.81 L Hgb 8.3 L Hct 24.4 L MCV 86.9 MCH 29.6 MCHC 34.1 RDW 21.8 H Plt Count 201 D MPV 9.6 Puncture Site Left radial Patient Temperature 98.6 O2 Saturation 95 ABG pH 7.34 L ABG pCO2 34 L ABG pO2 94 ABG HCO3 18 L ABG O2 Content 12.8 ABG Base Excess -6.6 L ABG Methemoglobin 1.4 Hector Test Present Hemoglobin 9.5 L Carboxyhemoglobin 0.7 O2 Delivery Device Ventilator Vent Setting Inspired O2 40 Critical Value No Sodium 147 H Potassium 4.0 Chloride 116 H Carbon Dioxide 18.6 L Anion Gap 12 BUN 38 H Creatinine 1.42 H Estimated GFR 47 L Random Glucose 187 H Calcium 6.6 L* D Calcium Adj for Albumin 8.7 Magnesium 2.3 Total Bilirubin 0.3 AST 27 ALT 34 Alkaline Phosphatase 101 Total Protein 5.1 L D Albumin 1.4 L - Imaging Impressions Abdomen/Bladder Ultrasound 06/30/18 00:00 CONCLUSION: Slightly increased renal cortical echogenicity. No hydronephrosis. Chest X-Ray 06/30/18 06:00 CONCLUSION: Bilateral lower lung infiltrates, similar to prior. Assessment and Plan - Plan Pneumonia resp failure HIgh grade coag neg staph bacteremia, no risk factors ? contaminnant cont current abx repeat BC
[2018-06-30 14:11] LABS: ABG Base Excess -4.4 mmol/L (-2-2); ABG PCO2 34 mmHg (38-42); ABG PO2 91 mmHG (61-120)
[2018-06-30 15:10] LABS: Albumin 1.5 g/dL (3.4-5.0); Carbon Dioxide 22.2 meq/L (21.0-32.0); Potassium 3.2 meq/L (3.5-5.1); Total Protein 5.4 g/dL (6.4-8.2)
--- NOTE | 2018-06-30 16:35 | P.DIET ---
Nutritional Evaluation Type of nutrition evaluation: initial Screening comments: 06/30 NPO alert x3 days Objective - Diagnosis bilateral pneumonia, hypoxemia, severe sepsis - Objective Diet Order: NPO Objective Comments: PMH: abdominal aortic aneurysm, artherosclerotic heart disease, CAD, essential HTN, FTT, GERD, HLD Meds: fentanyl, versed, MVI, vit C Assessment Assessment: Pt currently intubated, sedated w/ fentanyl, on mech vent. Spoke to RN [place] about pts PEG placement status, he mentioned that pt has a PEG now but probably will not start trickle feeding. RN also mentioned pts family still deciding if they want to put pt in hospice care. RD will continue to monitor NPO status. Consult RD for recommendations as needed. Recommendations: 1. RD will continue to monitor NPO status 2. Consult RD for recommendations as needed Dietitian to Monitor: Medical course
--- NOTE | 2018-06-30 16:56 | ECHRPT ---
Indication: Sepsis Possible Endocarditis CONCLUSIONS Normal left ventricular size. Wall thickness is normal. The left ventricular systolic function is mildly reduced with an estimated ejection fraction in the range of 45- 50%. Mild mitral valve regurgitation. Aortic valve sclerosis is present. Trace aortic valve regurgitation. Cannot exclude flail tricuspid valve leaflet. There is moderate tricuspid valve regurgitation. No obvious valvular vegetations visualized. Consider transesophageal echocardiogram if clinically indicated. BP: / HR: Rhythm: MEASUREMENTS (Male / Female) Normal Values Technical Quality:Fair 2D ECHO LV Diastolic Diameter PLAX 4.7 cm 4.2 - 5.9 / 3.9 - 5.3 cm LV Systolic Diameter PLAX 3.8 cm IVS Diastolic Thickness 0.9 cm 0.6 - 1.0 / 0.6 - 0.9 cm LVPW Diastolic Thickness 1.0 cm 0.6 - 1.0 / 0.6 - 0.9 cm LV Relative Wall Thickness 0.4 RV Internal Dim ED PLAX 2.9 cm Aortic Root Diameter 3.2 cm LA Systolic Diameter LX 4.0 cm 3.0 - 4.0 / 2.7 - 3.8 cm FINDINGS LEFT VENTRICLE Normal left ventricular size. Wall thickness is normal. The left ventricular systolic function is mildly reduced with an estimated ejection fraction in the range of 45- 50%. No regional wall motion abnormalities are present. RIGHT VENTRICLE Normal right ventricular size and systolic function. LEFT ATRIUM The left atrial size is normal. RIGHT ATRIUM The right atrial size is normal. ATRIAL SEPTUM Normal atrial septal thickness without atrial level shunting by limited color doppler interrogation. AORTA The aortic root and proximal ascending aorta are normal in size on limited imaging. MITRAL VALVE Mild thickening of the mitral valve leaflets. Calcification of the anterior mitral valve leaflet. Mild mitral annular calcification. Calcification of a chordae tendineae. Mild mitral valve regurgitation. AORTIC VALVE Trileaflet aortic valve. Moderate to severe aortic valve sclerosis is present. Trace aortic valve regurgitation. TRICUSPID VALVE The tricuspid valve is not well visualized. Calcification of chordae tendineae. Cannot exclude flail tricuspid valve leaflet. There is moderate tricuspid valve regurgitation. PULMONARY VALVE The pulmonary valve is not well visualized. VESSELS The inferior vena cava was not well visualized. PERICARDIUM No pericardial effusion. Sumeet Schreiber (Electronically Signed) Final Date:30 June 2018 16:55
--- NOTE | 2018-06-30 17:43 | P.PNPAL ---
Reason for Visit Reason for visit: a. To assist with evaluation and management of symptoms including: Dyspnea, agitation b. To assist medical decision maker(s) with: better understanding of current medical conditions; weighing benefits/burdens of medical treatment options; making medical treatment decisions. Subjective Subjective/Interval History: This is an 87-year-old male with a history of severe COPD, dysphasia, recurrent pneumonia, coronary artery disease, PAF and failure to thrive who was seen by palliative care 05/13/18 and was discharged to [facility] after declining a hospice admission. He presented back to the ED 06/18/2018 with a complaint of dyspnea and dysphasia requesting PEG tube placement. PEG tube was placed 06/20/[address] Vázquez. He was discharged back to [facility] 06/21. He again presented to the emergency room 6 days later on 06/27 for dyspnea, bilateral pneumonia and chronic cough. Patient seen today for follow-up of symptom management of dyspnea, agitation and goals of medical treatment. Patient remains intubated, tolerating CPAP trials with plan for extubation today per Dr. Antunez with adequate saturations. When sedation was lightened he became agitated this morning with the initial CPAP trial, failing after 3 minutes. He was placed on Precedex as well as fentanyl 100 mcg/h with subsequent improvement. Late tomorrow by his second trial he went apneic and Precedex was down titrated. At this evaluation he is breathing adequately on CPAP with good saturations. If he remains stable, plan is for medical extubation in the next 24 hours. . Family/Friend Interactions: Spoke with the family extensively to discuss possible reintubation if patient fails extubation. Family members included son Tolu and his , son Drew and his and the patient's . A full range of options were discussed to include continuing aggressive treatment with possible reintubation, home with home health and considering hospice care. After reviewing all family members opinions and answering all questions, it was the decision of the family not to reintubate if the patient failed and hopefully to get the patient home with hospice once medically stable. Requested hospice meeting tomorrow to discuss after processing overnight. . Objective Vital Signs: Vital Signs 06/29/18 18:00 06/29/18 18:20 06/29/18 18:25 Temperature Pulse Rate 48 L 74 74 Respiratory Rate 20 20 Blood Pressure 98/55 L 98/55 L Pulse Oximetry 98 98 06/29/18 18:30 06/29/18 18:35 06/29/18 18:40 Temperature Pulse Rate 73 71 70 Respiratory Rate 14 20 20 Blood Pressure 99/55 L 100/56 L 102/55 L Pulse Oximetry 98 98 98 06/29/18 18:45 06/29/18 18:50 06/29/18 18:55 Temperature Pulse Rate 69 68 68 Respiratory Rate 20 20 20 Blood Pressure 102/55 L 102/58 L 99/54 L Pulse Oximetry 98 98 97 06/29/18 19:00 06/29/18 19:05 06/29/18 19:10 Temperature Pulse Rate 67 66 66 Respiratory Rate 21 20 26 H Blood Pressure 99/56 L 97/52 L 97/56 L Pulse Oximetry 97 97 97 06/29/18 19:15 06/29/18 19:20 06/29/18 19:25 Temperature Pulse Rate 66 66 65 Respiratory Rate 20 22 22 Blood Pressure 99/56 L 101/55 L 105/58 L Pulse Oximetry 97 98 98 06/29/18 19:30 06/29/18 19:35 06/29/18 19:40 Temperature Pulse Rate 65 65 65 Respiratory Rate 26 H 24 20 Blood Pressure 103/54 L 104/57 L 105/56 L Pulse Oximetry 98 97 98 06/29/18 19:45 06/29/18 19:50 06/29/18 19:55 Temperature Pulse Rate 64 64 64 Respiratory Rate 23 20 20 Blood Pressure 106/56 L 106/58 L 104/55 L Pulse Oximetry 98 98 98 06/29/18 20:00 06/29/18 20:05 06/29/18 20:10 Temperature 97.9 F Pulse Rate 64 64 63 Respiratory Rate 20 20 20 Blood Pressure 111/59 L 108/55 L 110/55 L Pulse Oximetry 98 98 98 06/29/18 20:13 06/29/18 20:15 06/29/18 20:20 Temperature Pulse Rate 66 65 Respiratory Rate 20 19 20 Blood Pressure 112/58 L 106/53 L Pulse Oximetry 99 97 97 06/29/18 20:25 06/29/18 20:30 06/29/18 20:45 Temperature Pulse Rate 63 63 63 Respiratory Rate 20 20 20 Blood Pressure 109/55 L 103/56 L 107/57 L Pulse Oximetry 97 97 97 06/29/18 21:00 06/29/18 21:15 06/29/18 21:30 Temperature Pulse Rate 62 62 61 Respiratory Rate 22 20 19 Blood Pressure 103/58 L 103/59 L 112/57 L Pulse Oximetry 99 98 100 06/29/18 21:45 06/29/18 22:00 06/29/18 22:15 Temperature Pulse Rate 61 60 60 Respiratory Rate 21 20 26 H Blood Pressure 107/59 L 113/57 L 108/55 L Pulse Oximetry 99 99 99 06/29/18 22:30 06/29/18 22:45 06/29/18 23:00 Temperature Pulse Rate 61 63 58 L Respiratory Rate 30 H 16 21 Blood Pressure 107/57 L 118/61 111/56 L Pulse Oximetry 99 100 99 06/29/18 23:15 06/29/18 23:22 06/29/18 23:30 Temperature Pulse Rate 59 L 61 59 L Respiratory Rate 31 H 20 21 Blood Pressure 105/58 L 107/55 L Pulse Oximetry 99 98 98 06/29/18 23:45 06/30/18 00:00 06/30/18 00:15 Temperature 97.7 F Pulse Rate 59 L 60 56 L Respiratory Rate 30 H 33 H 36 H Blood Pressure 107/59 L 115/56 L 112/56 L Pulse Oximetry 99 100 99 06/30/18 00:30 06/30/18 00:45 06/30/18 01:00 Temperature Pulse Rate 56 L 54 L 55 L Respiratory Rate 33 H 26 H 27 H Blood Pressure 110/56 L 113/56 L 115/57 L Pulse Oximetry 99 100 100 06/30/18 01:15 06/30/18 01:30 06/30/18 01:45 Temperature Pulse Rate 54 L 54 L 54 L Respiratory Rate 25 H 20 20 Blood Pressure 113/59 L 113/59 L 113/59 L Pulse Oximetry 99 100 99 06/30/18 02:00 06/30/18 02:15 06/30/18 02:30 Temperature Pulse Rate 53 L 52 L 60 Respiratory Rate 20 21 20 Blood Pressure 118/60 115/59 L 118/60 Pulse Oximetry 99 99 99 06/30/18 02:45 06/30/18 03:00 06/30/18 03:15 Temperature Pulse Rate 53 L 56 L 54 L Respiratory Rate 22 20 19 Blood Pressure 117/59 L 115/58 L 117/61 Pulse Oximetry 98 98 98 06/30/18 03:16 06/30/18 03:18 06/30/18 03:31 Temperature Pulse Rate 52 L 106 H Respiratory Rate 20 20 23 Blood Pressure 104/62 Pulse Oximetry 98 97 06/30/18 03:45 06/30/18 04:00 06/30/18 06:00 Temperature 97.8 F Pulse Rate 78 71 50 L Respiratory Rate 16 20 Blood Pressure 102/54 L 102/52 L Pulse Oximetry 98 95 06/30/18 07:40 06/30/18 08:00 06/30/18 10:00 Temperature 98.1 F Pulse Rate 56 L 54 L 67 Respiratory Rate 20 20 Blood Pressure 120/59 L Pulse Oximetry 100 99 06/30/18 11:57 06/30/18 12:00 06/30/18 14:00 Temperature 97.9 F Pulse Rate 61 68 Respiratory Rate 16 16 Blood Pressure 98/50 L Pulse Oximetry 99 06/30/18 15:29 06/30/18 15:30 06/30/18 16:00 Temperature 98.0 F Pulse Rate 81 83 Respiratory Rate 9 L Blood Pressure 109/55 L Pulse Oximetry 99 99 Intake & Output 06/29/18 06/30/18 06/30/18 18:59 06:59 18:59 Intake Total 1800 / 1800 1450 / 1450 50 / 50 Output Total 100 / 100 950 / 950 Balance 1800 / 1800 1350 / 1350 -900 / -900 Weight 139 lb 15.896 oz Intake: IV 1800 / 1800 1450 / 1450 50 / 50 NS Inj 1,000 ML @ 84 mls/hr IV. 1000 / 1000 1000 / 1000 CONT .[id number] [facility] Rx#:[id number] Pitressin Inj 40 UNIT In NS Inj 100 / 100 98 ML @ 0.04 UNITS/MIN 6 mls/ hr IV.CONT CONT [facility] Rx#: [id number] Azithromycin Inj 500 MG In NS 250 / 250 Inj 250 ML @ 250 mls/hr IV.SIG Q24H [facility] Rx#:[id number] Levophed-Dextrose 4 mg/250 ml 200 / 200 Drip 4 mg In 250 ml @ 2 MCG/MIN 7.5 mls/hr IV.SIG TITRATE PRN Rx#:[id number] Zosyn 3.375 GM Premix 3.375 gm 100 / 100 100 / 100 50 / 50 In 50 ml @ 100 mls/hr IV.SIG Q6H [facility] Rx#:[id number] Vancomycin Inj 1,000 MG In NS 250 / 250 Inj 250 ML @ 250 mls/hr IV.SIG Q24H [facility] Rx#:[id number] fentaNYL 10 mcg/mL Premix Drip 250 / 250 2,500 mcg In 250 ml @ 50 MCG/HR 5 mls/hr IV.SIG TITRATE PRN Rx #:[id number] Oral 0 / 0 0 / 0 Output: Urine Amount (Catheter) 100 / 100 950 / 950 Condom 100 / 100 Straight 950 / 950 Other: # Incontinent Voids 1 # Bowel Movements 0 0 Physical Exam: CONSTITUTIONAL/GENERAL: This is a thin elderly male patient, intubated, lightly sedated on Precedex, no acute distress.. TUBES/LINES/DRAINS: Right IJ central line CARDIOVASCULAR: S1, S2, regular rate, regular rhythm without murmurs, gallops, or rubs. No JVD. Peripheral pulses symmetric. RESPIRATORY/CHEST: Mechanically ventilated, lungs clear. GASTROINTESTINAL: Abdomen soft, non-tender, nondistended. No hepato-splenomegaly , or palpable masses. No guarding. Bowel sounds present. GENITOURINARY: Without palpable bladder distension. MUSCULOSKELETAL: Extremities without clubbing, cyanosis, or edema. No joint tenderness or effusion noted. No calf tenderness. No mottling or clubbing. NEUROLOGICAL: Following commands, intubated. PSYCHIATRIC: Calm, appropriate. . Diagnostic Tests Laboratory: Laboratory Results - last 72 hr 06/27/18 06/27/18 06/27/18 17:02 17:02 17:02 WBC 15.4 H RBC 3.83 L Hgb 11.4 L Hct 33.2 L MCV 86.6 MCH 29.8 MCHC 34.5 RDW 21.4 H Plt Count 192 MPV 11.0 Neut % (Auto) 91.0 H Lymph % (Auto) 4.2 L Will % (Auto) 4.8 Eos % (Auto) 0.0 Baso % (Auto) 0.0 Neut # (Auto) 14.0 H Lymph # (Auto) 0.6 L Will # (Auto) 0.7 Eos # (Auto) 0.0 Baso # (Auto) 0.0 WBC Differential . Differential Comment Auto diff final PT 10.6 INR 1.0 APTT 26.1 Puncture Site Patient Temperature O2 Saturation ABG pH ABG pCO2 ABG pO2 ABG HCO3 ABG O2 Content ABG Base Excess ABG Methemoglobin Hector Test Hemoglobin Carboxyhemoglobin O2 Delivery Device Liter Flow Vent Setting Inspired O2 Critical Value Sodium 135 L Potassium 4.0 Chloride 105 Carbon Dioxide 17.0 L Anion Gap 13 BUN 29 H Creatinine 1.38 H Estimated GFR 49 L Random Glucose 169 H Lactic Acid Calcium 8.3 L Calcium Adj for Albumin Phosphorus Magnesium 1.7 Total Bilirubin 0.5 AST 27 ALT 49 Alkaline Phosphatase 124 H Total Creatine Kinase 61 Troponin I 0.10 H B-Natriuretic Peptide Total Protein 6.7 Albumin 1.8 L Urine Color Urine Clarity Urine pH Ur Specific [place] Urine Protein Urine Glucose (UA) Urine Ketones Urine Occult Blood Urine Nitrate Urine Bilirubin Urine Urobilinogen Ur Leukocyte Esterase Urine RBC Urine WBC Urine Bacteria Urine Mucus Micro UA Comment Ur Microscopic Review Urine Culture Comments Nasal Screen MRSA (PCR) 06/27/18 06/27/18 06/27/18 17:02 17:02 17:10 WBC RBC Hgb Hct MCV MCH MCHC RDW Plt Count MPV Neut % (Auto) Lymph % (Auto) Will % (Auto) Eos % (Auto) Baso % (Auto) Neut # (Auto) Lymph # (Auto) Will # (Auto) Eos # (Auto) Baso # (Auto) WBC Differential Differential Comment PT INR APTT Puncture Site Right radial Patient Temperature 98.6 O2 Saturation 91 ABG pH 7.52 H* ABG pCO2 18 L* ABG pO2 59 L* ABG HCO3 14 L* ABG O2 Content 17.1 ABG Base Excess -8.0 L ABG Methemoglobin 0.5 Hector Test Present Hemoglobin 13.4 Carboxyhemoglobin 1.3 O2 Delivery Device Non-rebreathing mask Liter Flow 15.00 Vent Setting Inspired O2 100 Critical Value Yes Sodium Potassium Chloride Carbon Dioxide Anion Gap BUN Creatinine Estimated GFR Random Glucose Lactic Acid 8.3 H* Calcium Calcium Adj for Albumin Phosphorus Magnesium Total Bilirubin AST ALT Alkaline Phosphatase Total Creatine Kinase Troponin I B-Natriuretic Peptide 458 H Total Protein Albumin Urine Color Urine Clarity Urine pH Ur Specific [place] Urine Protein Urine Glucose (UA) Urine Ketones Urine Occult Blood Urine Nitrate Urine Bilirubin Urine Urobilinogen Ur Leukocyte Esterase Urine RBC Urine WBC Urine Bacteria Urine Mucus Micro UA Comment Ur Microscopic Review Urine Culture Comments Nasal Screen MRSA (PCR) 06/27/18 06/27/18 06/28/18 19:16 21:30 03:45 WBC 8.9 RBC 3.56 L Hgb 10.5 L Hct 29.8 L MCV 83.9 MCH 29.6 MCHC 35.2 RDW 20.9 H Plt Count 132 L D MPV 10.5 Neut % (Auto) 90.3 H Lymph % (Auto) 5.7 L Will % (Auto) 3.9 Eos % (Auto) 0.0 Baso % (Auto) 0.1 Neut # (Auto) 8.0 H Lymph # (Auto) 0.5 L Will # (Auto) 0.3 Eos # (Auto) 0.0 Baso # (Auto) 0.0 WBC Differential . Differential Comment Auto diff final PT INR APTT Puncture Site Patient Temperature O2 Saturation ABG pH ABG pCO2 ABG pO2 ABG HCO3 ABG O2 Content ABG Base Excess ABG Methemoglobin Hector Test Hemoglobin Carboxyhemoglobin O2 Delivery Device Liter Flow Vent Setting Inspired O2 Critical Value Sodium Potassium Chloride Carbon Dioxide Anion Gap BUN Creatinine Estimated GFR Random Glucose Lactic Acid Calcium Calcium Adj for Albumin Phosphorus Magnesium Total Bilirubin AST ALT Alkaline Phosphatase Total Creatine Kinase Troponin I B-Natriuretic Peptide Total Protein Albumin Urine Color Yellow Urine Clarity Hazy H Urine pH 5.0 Ur Specific [place] 1.019 Urine Protein 30 H Urine Glucose (UA) 50 Urine Ketones Negative Urine Occult Blood Negative Urine Nitrate Negative Urine Bilirubin Negative Urine Urobilinogen Less than 2 Ur Leukocyte Esterase Negative Urine RBC Less than 1 Urine WBC Less than 1 Urine Bacteria Rare H Urine Mucus Few H Micro UA Comment Culture not ind Ur Microscopic Review Not Reportable Urine Culture Comments Culture not ind Nasal Screen MRSA (PCR) Not detected 06/28/18 06/28/18 06/28/18 03:45 03:45 05:34 WBC RBC Hgb Hct MCV MCH MCHC RDW Plt Count MPV Neut % (Auto) Lymph % (Auto) Will % (Auto) Eos % (Auto) Baso % (Auto) Neut # (Auto) Lymph # (Auto) Will # (Auto) Eos # (Auto) Baso # (Auto) WBC Differential Differential Comment PT 10.7 INR 1.1 APTT Puncture Site Right radial Patient Temperature 98.6 O2 Saturation 92 ABG pH 7.49 H ABG pCO2 19 L* ABG pO2 62 ABG HCO3 15 L* ABG O2 Content 12.8 ABG Base Excess -8.2 L ABG Methemoglobin 1.2 Hector Test Present Hemoglobin 9.9 L Carboxyhemoglobin 1.1 O2 Delivery Device Bipap 10/5/50% Liter Flow Vent Setting Inspired O2 50 Critical Value Yes Sodium 141 Potassium 3.8 Chloride 110 H Carbon Dioxide 17.2 L Anion Gap 14 BUN 26 H Creatinine 1.05 Estimated GFR 67 L Random Glucose 149 H Lactic Acid Calcium 7.5 L D Calcium Adj for Albumin Phosphorus 2.2 L Magnesium 2.2 Total Bilirubin 0.6 AST 45 H ALT 35 Alkaline Phosphatase 109 Total Creatine Kinase Troponin I B-Natriuretic Peptide Total Protein 6.0 L D Albumin 1.5 L Urine Color Urine Clarity Urine pH Ur Specific [place] Urine Protein Urine Glucose (UA) Urine Ketones Urine Occult Blood Urine Nitrate Urine Bilirubin Urine Urobilinogen Ur Leukocyte Esterase Urine RBC Urine WBC Urine Bacteria Urine Mucus Micro UA Comment Ur Microscopic Review Urine Culture Comments Nasal Screen MRSA (PCR) 06/28/18 06/28/18 06/28/18 10:19 18:05 19:50 WBC RBC Hgb Hct MCV MCH MCHC RDW Plt Count MPV Neut % (Auto) Lymph % (Auto) Will % (Auto) Eos % (Auto) Baso % (Auto) Neut # (Auto) Lymph # (Auto) Will # (Auto) Eos # (Auto) Baso # (Auto) WBC Differential Differential Comment PT INR APTT Puncture Site Right radial Patient Temperature 98.6 O2 Saturation 96 ABG pH 7.25 L* ABG pCO2 38 ABG pO2 119 ABG HCO3 16 L* ABG O2 Content 13.8 ABG Base Excess -10.0 L ABG Methemoglobin 1.4 Hector Test Present Hemoglobin 10.1 L Carboxyhemoglobin 0.7 O2 Delivery Device Ventilator Liter Flow Vent Setting Prvc/[id number]/ Inspired O2 65 Critical Value Yes Sodium Potassium 3.7 Chloride Carbon Dioxide Anion Gap BUN Creatinine Estimated GFR Random Glucose Lactic Acid 2.4 H Calcium Calcium Adj for Albumin Phosphorus 4.7 D Magnesium Total Bilirubin AST ALT Alkaline Phosphatase Total Creatine Kinase Troponin I B-Natriuretic Peptide Total Protein Albumin Urine Color Urine Clarity Urine pH Ur Specific [place] Urine Protein Urine Glucose (UA) Urine Ketones Urine Occult Blood Urine Nitrate Urine Bilirubin Urine Urobilinogen Ur Leukocyte Esterase Urine RBC Urine WBC Urine Bacteria Urine Mucus Micro UA Comment Ur Microscopic Review Urine Culture Comments Nasal Screen MRSA (PCR) 06/29/18 06/29/18 06/29/18 03:35 03:35 06:00 WBC 21.9 H D RBC 3.23 L Hgb 9.4 L Hct 27.6 L MCV 85.6 MCH 29.0 MCHC 33.8 RDW 21.8 H Plt Count 354 D MPV 10.6 Neut % (Auto) Lymph % (Auto) Will % (Auto) Eos % (Auto) Baso % (Auto) Neut # (Auto) Lymph # (Auto) Will # (Auto) Eos # (Auto) Baso # (Auto) WBC Differential Differential Comment PT INR APTT Puncture Site Right radial Patient Temperature 98.6 O2 Saturation 95 ABG pH 7.37 L ABG pCO2 28 L ABG pO2 87 ABG HCO3 15 L* ABG O2 Content 13.1 ABG Base Excess -8.9 L ABG Methemoglobin 1.4 Hector Test Present Hemoglobin 9.7 L Carboxyhemoglobin 0.9 O2 Delivery Device Ventilator Liter Flow Vent Setting Prvc Inspired O2 40 Critical Value Yes Sodium 141 Potassium 3.6 Chloride 114 H Carbon Dioxide 16.5 L Anion Gap 11 BUN 28 H Creatinine 1.09 Estimated GFR 64 L Random Glucose 165 H Lactic Acid Calcium 7.5 L Calcium Adj for Albumin Phosphorus Magnesium 2.2 Total Bilirubin 0.4 AST 38 H ALT 40 Alkaline Phosphatase 115 Total Creatine Kinase Troponin I B-Natriuretic Peptide Total Protein 5.8 L Albumin 1.5 L Urine Color Urine Clarity Urine pH Ur Specific [place] Urine Protein Urine Glucose (UA) Urine Ketones Urine Occult Blood Urine Nitrate Urine Bilirubin Urine Urobilinogen Ur Leukocyte Esterase Urine RBC Urine WBC Urine Bacteria Urine Mucus Micro UA Comment Ur Microscopic Review Urine Culture Comments Nasal Screen MRSA (PCR) 06/29/18 06/30/18 06/30/18 11:20 03:25 03:25 WBC 6.2 D RBC 2.81 L Hgb 8.3 L Hct 24.4 L MCV 86.9 MCH 29.6 MCHC 34.1 RDW 21.8 H Plt Count 201 D MPV 9.6 Neut % (Auto) Lymph % (Auto) Will % (Auto) Eos % (Auto) Baso % (Auto) Neut # (Auto) Lymph # (Auto) Will # (Auto) Eos # (Auto) Baso # (Auto) WBC Differential Differential Comment PT INR APTT Puncture Site Patient Temperature O2 Saturation ABG pH ABG pCO2 ABG pO2 ABG HCO3 ABG O2 Content ABG Base Excess ABG Methemoglobin Hector Test Hemoglobin Carboxyhemoglobin O2 Delivery Device Liter Flow Vent Setting Inspired O2 Critical Value Sodium 147 H Potassium 4.0 Chloride 116 H Carbon Dioxide 18.6 L Anion Gap 12 BUN 38 H Creatinine 1.42 H Estimated GFR 47 L Random Glucose 187 H Lactic Acid 1.2 Calcium 6.6 L* D Calcium Adj for Albumin 8.7 Phosphorus Magnesium 2.3 Total Bilirubin 0.3 AST 27 ALT 34 Alkaline Phosphatase 101 Total Creatine Kinase Troponin I B-Natriuretic Peptide Total Protein 5.1 L D Albumin 1.4 L Urine Color Urine Clarity Urine pH Ur Specific [place] Urine Protein Urine Glucose (UA) Urine Ketones Urine Occult Blood Urine Nitrate Urine Bilirubin Urine Urobilinogen Ur Leukocyte Esterase Urine RBC Urine WBC Urine Bacteria Urine Mucus Micro UA Comment Ur Microscopic Review Urine Culture Comments Nasal Screen MRSA (PCR) 06/30/18 06/30/18 06/30/18 10:23 14:00 14:11 WBC RBC Hgb Hct MCV MCH MCHC RDW Plt Count MPV Neut % (Auto) Lymph % (Auto) Will % (Auto) Eos % (Auto) Baso % (Auto) Neut # (Auto) Lymph # (Auto) Will # (Auto) Eos # (Auto) Baso # (Auto) WBC Differential Differential Comment PT INR APTT Puncture Site Left radial Left radial Patient Temperature 98.6 98.6 O2 Saturation 95 95 ABG pH 7.34 L 7.39 ABG pCO2 34 L 34 L ABG pO2 94 91 ABG HCO3 18 L 20 L ABG O2 Content 12.8 13.9 ABG Base Excess -6.6 L -4.4 L ABG Methemoglobin 1.4 1.3 Hector Test Present Present Hemoglobin 9.5 L 10.3 L Carboxyhemoglobin 0.7 0.8 O2 Delivery Device Ventilator Ventilator Liter Flow Vent Setting Cpap/5/+5/40% Inspired O2 40 40 Critical Value No No Sodium 148 H Potassium 3.2 L D Chloride 117 H Carbon Dioxide 22.2 Anion Gap 9 BUN 42 H Creatinine 1.21 Estimated GFR 57 L Random Glucose 114 H Lactic Acid Calcium 7.0 L* Calcium Adj for Albumin 9.0 Phosphorus Magnesium Total Bilirubin 0.3 AST 27 ALT 36 Alkaline Phosphatase 98 Total Creatine Kinase Troponin I B-Natriuretic Peptide Total Protein 5.4 L Albumin 1.5 L Urine Color Urine Clarity Urine pH Ur Specific [place] Urine Protein Urine Glucose (UA) Urine Ketones Urine Occult Blood Urine Nitrate Urine Bilirubin Urine Urobilinogen Ur Leukocyte Esterase Urine RBC Urine WBC Urine Bacteria Urine Mucus Micro UA Comment Ur Microscopic Review Urine Culture Comments Nasal Screen MRSA (PCR) Result Diagrams: 07/01/18 04:45 07/02/18 09:35 Microbiology: Microbiology 06/27/18 17:07 Aerobic Blood Culture - Final Blood - Peripheral Staphylococcus haemolyticus Anaerobic Blood Culture - Final Staphylococcus coag negative 06/27/18 17:02 Aerobic Blood Culture - Final Blood - Peripheral Staphylococcus haemolyticus Anaerobic Blood Culture - Final Staphylococcus coag negative 06/28/18 17:50 Gram Stain - Final Sputum - Endotracheal Sputum Culture - Final No growth in 48 hours 06/27/18 19:16 Legionella Antigen - Final Urine - Clean Catch Urine Presumptive negative for Legionella pneumophila serogroup 1 antigen in urine, suggesting no recent or recurrent infection. Infection due to Legionella cannot be ruled out since other serogroups and species may cause disease, antigen may not be present in urine in early infection, and the level of antigen present in the urine may be below the detection limit of the test. Imaging: ITS Impressions Abdomen/Bladder Ultrasound 06/30/18 00:00 CONCLUSION: Slightly increased renal cortical echogenicity. No hydronephrosis. Chest X-Ray 06/30/18 06:00 CONCLUSION: Bilateral lower lung infiltrates, similar to prior. Procedures: 06/28: Right subclavian central line placement. . Assessment and Plan Pertinent Non-Medical Issues: Psychosocial: Currently residing at rehab/SNF at [facility]. His can no longer provide care for him at home. Pt and his have been for 66 years. They are originally from [place] and have been in [place] 20+ years. 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 he did serve in the [employer]. Spiritual: [email or web address]. pastoral care available. Legal: Pt appears to be capacitated to make medical decisions although he does have some mild confusion that may or may not improve. In the even he is unable to make medical decisions, per [place] statutes proxy decision making would fall to his . recommend shared decision making Ethical issues impacting care:none Important Contacts: : Sagrario [phone] Prognosis: This is an 87 y/o male with hx recurrent PNA, CAD s/p CABG, TRICIA noncompliant with CPAP, COPD, aspiration PNA who presented 05/08 with weakness, respiratory failure, returned 06/17 for dyspnea and dysphasia requiring a PEG tube, then , 6 days after discharge from PEG tube placement. He has a trajectory of decline. He remains at risk for further setbacks and decline. It is unlikely he will return to 100% of his former baseline. His respiratory status may be barrier to full performance at rehab. He may be hospice appropriate should goals be in line with comfort. Code Status: No Code DNR Plan: PLAN: Legal decision maker: At this time the patient is not capacitated for decision-making due to his hypoxia, pneumonia and agitation. It is uncertain whether he will regain that capacity. Per [place] statutes, his Sagrario, would be his healthcare proxy decision-maker. She is supported by her son and [id number] Goals: To be determined. CODE STATUS: Alternate code, intubation only. After extubation do not reintubate, DO NOT RESUSCITATE. SYMPTOMS: * Agitation: Likely related to ET tube, restraints. Placed on Precedex to facilitate weaning and extubation. Controlled on Precedex. * Dyspnea: He is receiving antibiotics, steroids and inhalers. He is currently intubated with plan to extubate today. Family is choosing comfort measures and evaluating hospice at home. Palliative care will continue to follow the patient during hospital course as condition evolves, to assist patient/decision-maker with understanding of their medical conditions, weighing benefits/burdens of treatment options, for clarification of goals of treatment. Additionally will assist with any symptoms of palliative concern. . Attestation Attestation: To help prompt me to consider important information that might be impacting today's encounter and assessment, information from prior notes written by myself or my colleagues may have been "brought forward" into today's note. My signature on this note, however, is an attestation that I personally performed the exam, history, and/or decision-making noted today, and, unless otherwise indicated, the interactions with patient, family, and staff as well as the review of records all occurred today. I also attest that the listed assessment and stated plan reflect my best clinical judgment today based on the combination of historical information, prior notes, and today's exam/ interactions. When time spent is documented, it refers only to time spent today by the signer, or if indicated, combined time spent today by collaborating physician/nurse practitioner. .
[2018-06-30] MEDS: Azithromycin Inj 500 MG in Sodium Chlor 0.9% Inj 250 ML IV.SIG SCH (18:48)
[2018-06-30] MEDS: Vancomycin Inj 1,000 MG in Sodium Chlor 0.9% Inj 250 ML IV.SIG SCH (21:01)
[2018-06-30] MEDS ORDERED: Pharmacy Ordered Lab Info OTHER ONE (21:45)
[2018-07-01] MEDS: Oral Hygiene Kit OROPHARYNG SCH ×4 (00:12→16:23)
[2018-07-01] MEDS: Piperacil/Tazo 3.375 GM Premix 3.375 GM/50 ML PIGGYBACK IV.SIG SCH ×3 (00:12→10:14)
--- NOTE | 2018-07-01 04:49 | XR ---
EXAM DATE: 07/01/2018 4:30 AM EST AGE/SEX: 87 years / Male INDICATIONS: Respiratory disease. CLINICAL DATA: This is the patient's subsequent encounter. Patient reports that signs and symptoms h ave been present for 3 days and indicates a pain score of Nonresponsive. MEDICAL/SURGICAL HISTORY: . Aneurysm, abdominal. Hypertension. Osteoarthritis. Coronary artery disease. A-Fib. GERD. COPD. . Cholecystectomy. CABG. Coronary artery stent. COMPARISON: [facility], CHEST 1V SINGLE AP, 06/30/2018. . FINDINGS: Single view the chest centered the ET tube, right IJ central line, median sternotomy wires are all un changed. There are again patchy infiltrates throughout the lungs worse in the bases. Increased densit y in the right lung base suggesting a layering pleural effusion. I don't see any evidence of pneumoth orax. No new infiltrate is seen CONCLUSION: Persistent bibasilar consolidations with I suspect a right pleural effusion. ET tube in excellent pos ition Electronically signed by: Angel Anne MD Board Certified Radiologist 07/01/2018 4:48 AM EST
[2018-07-01 05:30] LABS: Hematocrit 22.3 % (39.0-51.0); Hemoglobin 7.8 gm/dL (13.0-17.0); Mean Corpuscular Hemoglobin 29.9 pg (27.0-34.0); Mean Corpuscular Volume 85.3 fL (80.0-100.0); Mean Platelet Volume 9.5 fL (7.0-11.0); Platelet Count 204 th/mm3 (150-450); Red Blood Count 2.61 mil/mm3 (4.50-5.90); Red Cell Distribution Width 21.3 % (11.6-17.2)
[2018-07-01 05:53] LABS: Albumin 1.5 g/dL (3.4-5.0); Calcium 7.3 mg/dL (8.5-10.1); Carbon Dioxide 21.3 meq/L (21.0-32.0); Potassium 3.1 meq/L (3.5-5.1); Total Protein 5.2 g/dL (6.4-8.2)
[2018-07-01] MEDS: MethylPREDNISolone Sod Succinate Inj 125 MG/2 ML Vial IV.PUSH SCH ×3 (06:00→21:27)
[2018-07-01] MEDS: Heparin - SQ 10,000 UNITS/ML Vial SQ SCH ×3 (06:01→21:26)
[2018-07-01] MEDS: Chlorhexidine Gluconate 2% 1 Pack (2 Cloths) TOPICAL SCH (06:01)
[2018-07-01] MEDS: Potassium Chlor 40 mEq Premix 40 MEQ/100 ML PIGGYBACK IV.SIG PRN ×2 (08:45→12:50)
[2018-07-01] MEDS: Famotidine PF Inj 20 MG/2 ML Vial IV.PUSH SCH ×2 (08:45→21:26)
[2018-07-01] MEDS: Senna/Docusate Sodium 8.6/50 MG Tablet PO SCH ×2 (08:45→21:25)
[2018-07-01] MEDS: dilTIAZem 30 MG Tablet PO SCH ×4 (08:45→21:25)
[2018-07-01] MEDS: Multivit/Folic Acid/Minerals Chewable Tablets CHEW SCH (08:45)
[2018-07-01] MEDS: Chlorhexidine 0.12% Oral Kit 15 ML UDC OROPHARYNG SCH ×2 (08:46→21:23)
[2018-07-01] MEDS: Budesonide-Formoterol 80/4.5 MCG 6.9 GM Inhaler INH SCH (08:46)
--- NOTE | 2018-07-01 09:24 | P.PNCC ---
Subjective Subjective Remarks/Hospital Course: 87[facility]M [facility] with shortness of breath and cough. The patient has a history of severe COPD and reports that he's been "congested" and coughing for the past 2-3 days, was unable to catch his breath earlier today so he presented to the ED via EMS. His initial pulse ox at that time was in the mid 80s. He admits to productive cough and chills, denies fever , chest pain, palpitations, nausea or vomiting. The patient's reports that the patient had a significant decline in his functional status after he was admitted in 04/2018, is now no longer ambulatory and resides in a rehab facility , unable to perform most ADLs independently. COPD history- on 3L O2 around the clock at home, uses nebulizers/ inhalers (including Symbicort), chronically on prednisone, multiple previous admissions for pneumonia (most recently in 04/2018 , admitted to ICU but not intubated), follows with Dr. Magaña of pulmonology. The patient also had a PEG tube placed on 06/20/[address] Vázquez of for dysphagia and recurrent aspiration. SUBJ 06/28/18: Critically ill male lying in bed on BiPAP. Chest x-ray shows persistent bilateral infiltrates indicating pneumonia. He is hypotensive systolic blood pressure in the 80s map 55-60. I have ordered additional 1 L fluid bolus. His clinical worsening most likely secondary to sepsis/shock 06/29/18: Patient remains intubated sedated. Was intubated yesterday for worsening hypoxemic respiratory failure and worsening septic shock. Currently on 11 mcg/min of Levophed. However oxygenation has improved. Chest x-ray shows improving but persistent left more than right basilar infiltrates. Sputum culture is pending at this. Developed A. fib with RVR will receive his Cardizem but at 30 mg every 6 hours dosing 06/30: Remains intubated sedated with fentanyl. Remains on vasopressin at 0.0/ units. Oliguric overnight creatinine bumped to 1.4. However with straight cath he made 1 L urine. Renal ultrasound ordered. Failed CPAP trial in a.m. due to agitation will start on Precedex to facilitate vent weaning 07/01: Intubated lightly sedated with fentanyl infusion. Creatinine improved after straight cath. Urine output more than 3 L, off all pressors. Weight up due to resuscitation. Will give 1 dose of albumin and Lasix 40 mg x1 Objective Vital Signs / I&O: Vital Signs 06/30/18 10:00 06/30/18 11:57 06/30/18 12:00 Temperature 97.9 F Pulse Rate 67 61 Respiratory Rate 16 16 Blood Pressure 98/50 L Pulse Oximetry 99 06/30/18 14:00 06/30/18 15:29 06/30/18 15:30 Temperature Pulse Rate 68 81 Respiratory Rate Blood Pressure Pulse Oximetry 99 06/30/18 16:00 06/30/18 18:00 06/30/18 19:00 Temperature 98.0 F 97.8 F Pulse Rate 83 103 H 85 Respiratory Rate 9 L 12 Blood Pressure 109/55 L 110/54 L Pulse Oximetry 99 100 06/30/18 19:15 06/30/18 19:30 06/30/18 19:33 Temperature Pulse Rate 89 105 H 107 H Respiratory Rate 16 33 H 21 Blood Pressure 107/51 L 108/53 L Pulse Oximetry 100 97 98 06/30/18 19:44 06/30/18 19:45 06/30/18 20:00 Temperature Pulse Rate 81 97 H 82 Respiratory Rate 16 21 17 Blood Pressure 103/56 L 106/54 L 99/54 L Pulse Oximetry 98 98 100 06/30/18 20:15 06/30/18 20:23 06/30/18 20:30 Temperature Pulse Rate 90 90 87 Respiratory Rate 19 16 14 Blood Pressure 93/51 L 92/52 L 91/54 L Pulse Oximetry 100 100 100 06/30/18 20:45 06/30/18 21:00 06/30/18 21:15 Temperature Pulse Rate 82 80 84 Respiratory Rate 15 16 10 L Blood Pressure 94/50 L 101/54 L 98/53 L Pulse Oximetry 100 100 100 06/30/18 21:30 06/30/18 21:45 06/30/18 22:00 Temperature Pulse Rate 80 78 76 Respiratory Rate 19 17 19 Blood Pressure 97/54 L 107/58 L 105/56 L Pulse Oximetry 100 100 100 06/30/18 22:15 06/30/18 22:30 06/30/18 22:45 Temperature Pulse Rate 75 95 H 83 Respiratory Rate 15 25 H 22 Blood Pressure 103/57 L 124/57 L 112/55 L Pulse Oximetry 100 100 99 06/30/18 23:00 06/30/18 23:02 06/30/18 23:15 Temperature Pulse Rate 85 88 84 Respiratory Rate 18 18 15 Blood Pressure 106/56 L 102/56 L Pulse Oximetry 100 100 06/30/18 23:30 06/30/18 23:45 07/01/18 00:00 Temperature Pulse Rate 90 86 89 Respiratory Rate 15 17 15 Blood Pressure 101/54 L 100/56 L 100/57 L Pulse Oximetry 100 100 100 07/01/18 00:15 07/01/18 00:30 07/01/18 00:45 Temperature Pulse Rate 90 99 H 89 Respiratory Rate 16 25 H 14 Blood Pressure 101/56 L 99/56 L 106/55 L Pulse Oximetry 100 100 99 07/01/18 01:00 07/01/18 01:13 07/01/18 01:15 Temperature Pulse Rate 82 91 H Respiratory Rate 16 18 15 Blood Pressure 108/51 L 104/55 L Pulse Oximetry 100 100 100 07/01/18 01:30 07/01/18 01:45 07/01/18 02:00 Temperature Pulse Rate 83 85 83 Respiratory Rate 14 15 14 Blood Pressure 105/54 L 103/57 L 110/57 L Pulse Oximetry 100 100 100 07/01/18 02:15 07/01/18 02:30 07/01/18 03:59 Temperature Pulse Rate 84 87 83 Respiratory Rate 14 16 20 Blood Pressure 109/55 L 105/59 L Pulse Oximetry 99 100 100 07/01/18 04:00 07/01/18 06:00 07/01/18 07:18 Temperature 97.8 F Pulse Rate 87 88 Respiratory Rate 13 16 Blood Pressure 111/58 L Pulse Oximetry 99 07/01/18 07:22 Temperature Pulse Rate 85 Respiratory Rate 16 Blood Pressure Pulse Oximetry Intake & Output 06/30/18 07/01/18 07/01/18 18:59 06:59 18:59 Intake Total 1050 / 1050 650 / 650 Output Total 2200 / 2200 925 / 925 Balance -1150 / -1150 -275 / -275 Weight 70 kg Intake: IV 1050 / 1050 650 / 650 NS Inj 1,000 ML @ 84 mls/hr IV. 1000 / 1000 CONT .[id number] [facility] Rx#:[id number] Azithromycin Inj 500 MG In NS 250 / 250 Inj 250 ML @ 250 mls/hr IV.SIG Q24H [facility] Rx#:[id number] Zosyn 3.375 GM Premix 3.375 gm 50 / 50 150 / 150 In 50 ml @ 100 mls/hr IV.SIG Q6H [facility] Rx#:[id number] Vancomycin Inj 1,000 MG In NS 250 / 250 Inj 250 ML @ 250 mls/hr IV.SIG Q24H [facility] Rx#:[id number] Oral 0 / 0 Output: Urine Amount (Catheter) 2200 / 2200 925 / 925 Straight 2200 / 2200 925 / 925 Other: # Bowel Movements 0 Result Diagrams: 07/01/18 04:45 07/01/18 04:45 Objective Remarks: GEN: Frail-appearing critically ill elderly male lying in bed, on mechanical ventilation HEENT: NCAT, PERRL NECK: Trachea midline CARDIO: Mildly tachycardic, irregular. Atrial fibrillation with RVR. Currently weaned off vasopressin RESP: On PS/PEEP 5/5. Air entry equal bilaterally but diminished at the bases. Few basilar crackles heard. Bedside ultrasound small left effusion ABD/GI: PEG tube in place, site clean/ dry/ intact, abdomen soft and non-tender EXT/MSK: No peripheral edema SKIN: Warm and well-perfused, stage 1 sacral decubitus NEURO: Intubated sedated with fentanyl. Moves extremities spontaneously. Gets agitated on lightening sedation. Did not follow commands Assessment and Plan - Assessment and Plan Plan: 87yM presenting with COPD exacerbation, septic shock secondary to HCAP, acute hypoxic respiratory failure requiring mechanical ventilation, now very critical. Remains critically ill on Levophed and mechanical ventilatory support. Now with atrial fibrillation and RVR NEURO: History of restless leg syndrome * Continue fentanyl for sedation. Use Precedex if needed * Daily sedation vacation in 24 hours * PRN tylenol for pain * Continue home dose of requip CARDIO: Septic shock Atrial fibrillation with RVR Septic shock improving, off vasopressors Cardizem 10 mg IV push followed by 30 mg every 6 hours p.o. Holding home Cardizem 120 mg Due to fluid overload give 40 mg IV Lasix and 25 g IV albumin History of essential hypertension, atrial fibrillation, coronary artery disease * Continue home dose of aspirin, pravastatin * Rate control if needed with IV Cardizem gtt. RESP: Septic shock secondary to healthcare associated pneumonia COPD with acute exacerbation Acute hypoxic respiratory failure * Intubated and placed on mechanical ventilation on 06/28/2018. PRVC AC * Continue scheduled and PRN nebs * Continue steroids Solu-Medrol 60 mg IV every 8 hours * Received 1 dose of IV magnesium as well * Treat for recurrent HCAP with azithromycin, zosyn, vancomycin. Discontinue azithromycin today * Follow up cultures and MRSA swab * Family wants to maintain alternate code, no CPR. intubation and mechanical ventilation okay for limited time. No reintubation after extubation * On CPAP trial for possible extubation F/E/N: History of dysphagia Severe protein calorie malnutrition as evidenced by frailty and hypoalbuminemia * Trickle TFs via PEG * Maintenance fluids * ICU electrolyte protocol ENDO: History of hypothyroidism * Continue home dose of Synthroid ID: HCAP Septic shock Gram-positive bacteremia * As outlined above. Follow-up on cultures, continue azithromycin Zosyn and vancomycin. DC azithromycin today * Follow-up on sputum culture. Blood cultures negative to * Coag negative staph bacteremia 4 out of 4 bottles * 2D echo to rule out endocarditis-cannot rule out flail tricuspid valve, moderate TR * ID consulted PROPHY: * PPI (patient is on omeprazole at home) * SCDs, SQH Overall: This patient is critically ill with acute hypoxic respiratory failure requiring non-invasive ventilation and severe sepsis secondary to HCAP. He requires ICU level of care. I have also requested a palliative care consultation as this is the patient's 3rd hospitalization in 3 months related to his COPD/ recurrent pneumonia and he will undoubtedly continue to have sequelae of both of these issues going forward. Counseling/ Coordination of Care: This patient is critically ill with impairment of one or more vital organ systems with a high probability of imminent or life-threatening deterioration. High-complexity medical decision making was required to support vital organ function and/ or prevent deterioration in the patient's condition. Total critical care time spent is 30 minutes giving full attention to this patient. This includes examining the patient, gathering history from someone other than the patient (i.e. chart review), discussing the patient's care with other providers, managing the patient's bipap settings, ordering and interpreting radiologic studies, ordering and interpreting laboratory values, and documentation. Amount of time is separate from teaching, counseling the patient and/or family, and exclusive of procedures.
[2018-07-01] MEDS ORDERED: Albumin Human 25% Inj 100 ML IV.SIG ONE (09:45)
--- NOTE | 2018-07-01 14:41 | P.PNID ---
Subjective Remarks: pt is now extubated and is doing ok on NC O2 normal WBC Antibiotics: azithro vanco zosyn Allergies/Adverse Reactions: Allergies peanut oil Allergy (Severe, Verified 06/18/18 18:41) Diarrhea peanut Allergy (Intermediate, Verified 06/18/18 18:41) Diarrhea Objective Vital Signs 06/30/18 15:29 06/30/18 15:30 06/30/18 16:00 Temperature 98.0 F Pulse Rate 81 83 Respiratory Rate 9 L Blood Pressure 109/55 L Pulse Oximetry 99 99 06/30/18 18:00 06/30/18 19:00 06/30/18 19:15 Temperature 97.8 F Pulse Rate 103 H 85 89 Respiratory Rate 12 16 Blood Pressure 110/54 L 107/51 L Pulse Oximetry 100 100 06/30/18 19:30 06/30/18 19:33 06/30/18 19:44 Temperature Pulse Rate 105 H 107 H 81 Respiratory Rate 33 H 21 16 Blood Pressure 108/53 L 103/56 L Pulse Oximetry 97 98 98 06/30/18 19:45 06/30/18 20:00 06/30/18 20:15 Temperature Pulse Rate 97 H 82 90 Respiratory Rate 21 17 19 Blood Pressure 106/54 L 99/54 L 93/51 L Pulse Oximetry 98 100 100 06/30/18 20:23 06/30/18 20:30 06/30/18 20:45 Temperature Pulse Rate 90 87 82 Respiratory Rate 16 14 15 Blood Pressure 92/52 L 91/54 L 94/50 L Pulse Oximetry 100 100 100 06/30/18 21:00 06/30/18 21:15 06/30/18 21:30 Temperature Pulse Rate 80 84 80 Respiratory Rate 16 10 L 19 Blood Pressure 101/54 L 98/53 L 97/54 L Pulse Oximetry 100 100 100 06/30/18 21:45 06/30/18 22:00 06/30/18 22:15 Temperature Pulse Rate 78 76 75 Respiratory Rate 17 19 15 Blood Pressure 107/58 L 105/56 L 103/57 L Pulse Oximetry 100 100 100 06/30/18 22:30 06/30/18 22:45 06/30/18 23:00 Temperature Pulse Rate 95 H 83 85 Respiratory Rate 25 H 22 18 Blood Pressure 124/57 L 112/55 L 106/56 L Pulse Oximetry 100 99 100 06/30/18 23:02 06/30/18 23:15 06/30/18 23:30 Temperature Pulse Rate 88 84 90 Respiratory Rate 18 15 15 Blood Pressure 102/56 L 101/54 L Pulse Oximetry 100 100 06/30/18 23:45 07/01/18 00:00 07/01/18 00:15 Temperature Pulse Rate 86 89 90 Respiratory Rate 17 15 16 Blood Pressure 100/56 L 100/57 L 101/56 L Pulse Oximetry 100 100 100 07/01/18 00:30 07/01/18 00:45 07/01/18 01:00 Temperature Pulse Rate 99 H 89 82 Respiratory Rate 25 H 14 16 Blood Pressure 99/56 L 106/55 L 108/51 L Pulse Oximetry 100 99 100 07/01/18 01:13 07/01/18 01:15 07/01/18 01:30 Temperature Pulse Rate 91 H 83 Respiratory Rate 18 15 14 Blood Pressure 104/55 L 105/54 L Pulse Oximetry 100 100 100 07/01/18 01:45 07/01/18 02:00 07/01/18 02:15 Temperature Pulse Rate 85 83 84 Respiratory Rate 15 14 14 Blood Pressure 103/57 L 110/57 L 109/55 L Pulse Oximetry 100 100 99 07/01/18 02:30 07/01/18 02:45 07/01/18 03:00 Temperature Pulse Rate 87 89 94 H Respiratory Rate 16 23 20 Blood Pressure 105/59 L 112/56 L 119/58 L Pulse Oximetry 100 99 100 07/01/18 03:15 07/01/18 03:30 07/01/18 03:45 Temperature Pulse Rate 88 85 85 Respiratory Rate 16 15 17 Blood Pressure 106/59 L 106/56 L 104/56 L Pulse Oximetry 100 99 100 07/01/18 03:59 07/01/18 04:00 07/01/18 04:01 Temperature 97.8 F Pulse Rate 83 94 H 97 H Respiratory Rate 20 16 18 Blood Pressure 111/58 L 122/65 Pulse Oximetry 100 99 100 07/01/18 04:15 07/01/18 04:30 07/01/18 04:45 Temperature Pulse Rate 86 92 H 95 H Respiratory Rate 16 25 H 28 H Blood Pressure 113/60 110/59 L 105/56 L Pulse Oximetry 100 100 99 07/01/18 05:02 07/01/18 06:00 07/01/18 07:18 Temperature Pulse Rate 88 88 Respiratory Rate 16 16 Blood Pressure Pulse Oximetry 100 99 07/01/18 07:22 07/01/18 08:00 07/01/18 10:00 Temperature 98 F Pulse Rate 85 91 H 100 H Respiratory Rate 16 12 Blood Pressure 108/55 L Pulse Oximetry 100 07/01/18 11:48 07/01/18 12:00 Temperature Pulse Rate 89 90 Respiratory Rate 14 Blood Pressure Pulse Oximetry Intake & Output 06/30/18 07/01/18 07/01/18 18:59 06:59 18:59 Intake Total 1050 / 1050 650 / 650 250 / 250 Output Total 2200 / 2200 925 / 925 Balance -1150 / -1150 -275 / -275 250 / 250 Weight 70 kg Intake: IV 1050 / 1050 650 / 650 250 / 250 Precedex Inj 200 MCG In NS Inj 50 / 50 48 ML @ 0.2 MCG/KG/HR 3.17 mls/ hr IV.CONT TITRATE PRN Rx#: [id number] Diprivan 1000 mg/100 ml Inj 1, 10 / 10 000 mg In 100 ml @ 5 MCG/KG/MIN 1.86 mls/hr IV.CONT TITRATE PRN Rx#:[id number] NS Inj 1,000 ML @ 84 mls/hr IV. 1000 / 1000 CONT .[id number] [facility] Rx#:[id number] Pitressin Inj 40 UNIT In NS Inj 40 / 40 98 ML @ 0.04 UNITS/MIN 6 mls/ hr IV.CONT CONT [facility] Rx#: [id number] Flexbumin 25% Inj 100 ML @ 60 100 / 100 mls/hr IV.SIG ONCE ONE Rx#: [id number] Azithromycin Inj 500 MG In NS 250 / 250 Inj 250 ML @ 250 mls/hr IV.SIG Q24H [facility] Rx#:[id number] Zosyn 3.375 GM Premix 3.375 gm 50 / 50 150 / 150 50 / 50 In 50 ml @ 100 mls/hr IV.SIG Q6H [facility] Rx#:[id number] Vancomycin Inj 1,000 MG In NS 250 / 250 Inj 250 ML @ 250 mls/hr IV.SIG Q24H [facility] Rx#:[id number] Oral 0 / 0 Output: Urine Amount (Catheter) 2200 / 2199 925 / 925 Straight 2199 925 / 925 Other: # Bowel Movements 0 06/30/18 16:25 Blood - Peripheral Aerobic Blood Culture - Preliminary No growth in 1 day 06/30/18 16:25 Blood - Peripheral Anaerobic Blood Culture - Preliminary No growth in 1 day 06/30/18 16:20 Blood - Peripheral Aerobic Blood Culture - Preliminary No growth in 1 day 06/30/18 16:20 Blood - Peripheral Anaerobic Blood Culture - Preliminary No growth in 1 day 06/27/18 17:07 Blood - Peripheral Aerobic Blood Culture - Final Staphylococcus haemolyticus 06/27/18 17:07 Blood - Peripheral Anaerobic Blood Culture - Final Staphylococcus coag negative 06/27/18 17:02 Blood - Peripheral Aerobic Blood Culture - Final Staphylococcus haemolyticus 06/27/18 17:02 Blood - Peripheral Anaerobic Blood Culture - Final Staphylococcus coag negative 06/28/18 17:50 Sputum - Endotracheal Gram Stain - Final 06/28/18 17:50 Sputum - Endotracheal Sputum Culture - Final No growth in 48 hours 06/27/18 19:16 Urine - Clean Catch Urine Legionella Antigen - Final Presumptive negative for Legionella pneumophila serogroup 1 antigen in urine, suggesting no recent or recurrent infection. Infection due to Legionella cannot be ruled out since other serogroups and species may cause disease, antigen may not be present in urine in early infection, and the level of antigen present in the urine may be below the detection limit of the test. Lab - Hematology Results 06/30/18 07/01/18 03:25 04:45 WBC 6.2 D 7.0 RBC 2.81 L 2.61 L Hgb 8.3 L 7.8 L Hct 24.4 L 22.3 L MCV 86.9 85.3 MCH 29.6 29.9 MCHC 34.1 35.0 RDW 21.8 H 21.3 H Plt Count 201 D 204 MPV 9.6 9.5 Lab - Chemistry Results 06/30/18 06/30/18 07/01/18 03:25 14:11 04:45 Sodium 147 H 148 H 148 H Potassium 4.0 3.2 L D 3.1 L Chloride 116 H 117 H 117 H Carbon Dioxide 18.6 L 22.2 21.3 Anion Gap 12 9 10 BUN 38 H 42 H 42 H Creatinine 1.42 H 1.21 1.20 Estimated GFR 47 L 57 L 57 L Random Glucose 187 H 114 H 102 Calcium 6.6 L* D 7.0 L* 7.3 L* Calcium Adj for Albumin 8.7 9.0 9.3 Magnesium 2.3 Total Bilirubin 0.3 0.3 0.4 AST 27 27 27 ALT 34 36 33 Alkaline Phosphatase 101 98 91 Total Protein 5.1 L D 5.4 L 5.2 L Albumin 1.4 L 1.5 L 1.5 L Imaging: ITS Impressions Abdomen/Bladder Ultrasound 06/30/18 00:00 CONCLUSION: Slightly increased renal cortical echogenicity. No hydronephrosis. Chest X-Ray 07/01/18 06:00 CONCLUSION: Persistent bibasilar consolidations with I suspect a right pleural effusion. ET tube in excellent position Physical Exam: GENERAL: NAD SKIN: Warm and dry. NO rash HEAD: Atraumatic. Normocephalic. EYES: Pupils equal and round. No scleral icterus. No injection or drainage. ENT: No nasal bleeding or discharge. Mucous membranes pink and moist. NECK: Trachea midline. No JVD. CARDIOVASCULAR: Regular rate and rhythm. + harsh 3-4/6 holosystolic murmur RESPIRATORY: No accessory muscle use. Clear to auscultation. Breath sounds equal bilaterally. GASTROINTESTINAL: Abdomen soft, non-tender, nondistended. Hepatic and splenic margins not palpable. MUSCULOSKELETAL: Extremities without clubbing, cyanosis, or edema. No obvious deformities. NEUROLOGICAL: letrhargic, arousable Confused not following commands PSYCHIATRIC: uanble to asses Assessment and Plan - Plan Pneumonia resp failure HIgh grade coag neg staph bacteremia, no risk factors ? contaminant change current abx to vancomycin, CFTX and cont azithro fu repeat BC will need ADITHYA if persistent bacteremia with same organism CT if no improvement/ worsening
[2018-07-01] MEDS: Vancomycin Inj 1,000 MG in Sodium Chlor 0.9% Inj 250 ML IV.SIG SCH (21:42)
[2018-07-02] MEDS: Oral Hygiene Kit OROPHARYNG SCH ×2 (00:11→04:19)
[2018-07-02] MEDS: Potassium Chlor 20 mEq Premix 20 MEQ/100 ML PIGGYBACK IV.SIG PRN ×2 (01:22→03:20)
[2018-07-02] MEDS: Morphine Inj 4 MG/ML Vial IV.PUSH PRN ×13 (03:36→23:35)
[2018-07-02] MEDS: Chlorhexidine Gluconate 2% 1 Pack (2 Cloths) TOPICAL SCH (04:19)
[2018-07-02] MEDS: MethylPREDNISolone Sod Succinate Inj 125 MG/2 ML Vial IV.PUSH SCH (06:27)
[2018-07-02] MEDS: Heparin - SQ 10,000 UNITS/ML Vial SQ SCH (06:28)
--- NOTE | 2018-07-02 08:44 | P.PNCC ---
Subjective Subjective Remarks/Hospital Course: 87[facility] with [facility] of breath and cough. The patient has a history of severe COPD and reports that he's been "congested" and coughing for the past 2-3 days, was unable to catch his breath earlier today so he presented to the ED via EMS. His initial pulse ox at that time was in the mid 80s. He admits to productive cough and chills, denies fever , chest pain, palpitations, nausea or vomiting. The patient's reports that the patient had a significant decline in his functional status after he was admitted in 04/2018, is now no longer ambulatory and resides in a rehab facility , unable to perform most ADLs independently. COPD history- on 3L O2 around the clock at home, uses nebulizers/ inhalers (including Symbicort), chronically on prednisone, multiple previous admissions for pneumonia (most recently in 04/2018 , admitted to ICU but not intubated), follows with Dr. Magaña of pulmonology. The patient also had a PEG tube placed on 06/20/[address] Vázquez of for dysphagia and recurrent aspiration. SUBJ 06/28/18: Critically ill male lying in bed on BiPAP. Chest x-ray shows persistent bilateral infiltrates indicating pneumonia. He is hypotensive systolic blood pressure in the 80s map 55-60. I have ordered additional 1 L fluid bolus. His clinical worsening most likely secondary to sepsis/shock 06/29/18: Patient remains intubated sedated. Was intubated yesterday for worsening hypoxemic respiratory failure and worsening septic shock. Currently on 11 mcg/min of Levophed. However oxygenation has improved. Chest x-ray shows improving but persistent left more than right basilar infiltrates. Sputum culture is pending at this. Developed A. fib with RVR will receive his Cardizem but at 30 mg every 6 hours dosing 06/30: Remains intubated sedated with fentanyl. Remains on vasopressin at 0.0/ units. Oliguric overnight creatinine bumped to 1.4. However with straight cath he made 1 L urine. Renal ultrasound ordered. Failed CPAP trial in a.m. due to agitation will start on Precedex to facilitate vent weaning 07/01: Intubated lightly sedated with fentanyl infusion. Creatinine improved after straight cath. Urine output more than 3 L, off all pressors. Weight up due to resuscitation. Will give 1 dose of albumin and Lasix 40 mg x1 07/02: Patient was extubated yesterday initially did well overnight more hypoxemic currently barely saturation above 88% on 1% nonrebreather. Coarse bilateral crackles on chest exam. Stat 40 mg IV Lasix given and start scheduled 40 mg every 8 hours. Start BiPAP 06/17. Prognosis appears poor but family is not ready for transition to comfort measures Objective Vital Signs / I&O: Vital Signs 07/01/18 08:46 07/01/18 09:00 07/01/18 09:15 Temperature Pulse Rate 94 H 85 98 H Respiratory Rate 15 14 17 Blood Pressure 132/57 L 118/55 L 104/52 L Pulse Oximetry 100 100 98 07/01/18 09:30 07/01/18 09:45 07/01/18 10:00 Temperature Pulse Rate 73 80 100 H Respiratory Rate 14 16 23 Blood Pressure 120/58 L 120/50 L Pulse Oximetry 100 100 99 07/01/18 10:01 07/01/18 10:15 07/01/18 10:30 Temperature Pulse Rate 94 H 89 96 H Respiratory Rate 18 17 13 Blood Pressure 124/58 L 116/58 L 120/62 Pulse Oximetry 99 99 100 07/01/18 10:45 07/01/18 11:00 07/01/18 11:15 Temperature Pulse Rate 100 H 90 100 H Respiratory Rate 19 14 34 H Blood Pressure 127/57 L 121/60 114/57 L Pulse Oximetry 100 100 07/01/18 11:30 07/01/18 11:45 07/01/18 11:48 Temperature Pulse Rate 93 H 92 H 89 Respiratory Rate 24 14 14 Blood Pressure 108/58 L 118/61 Pulse Oximetry 99 98 07/01/18 12:00 07/01/18 12:15 07/01/18 12:31 Temperature 97.7 F Pulse Rate 90 94 H 102 H Respiratory Rate 14 15 20 Blood Pressure 105/54 L 107/56 L 115/63 Pulse Oximetry 99 98 98 07/01/18 12:45 07/01/18 13:00 07/01/18 13:15 Temperature Pulse Rate 86 91 H 91 H Respiratory Rate 13 16 15 Blood Pressure 109/59 L 111/58 L 115/62 Pulse Oximetry 99 100 100 07/01/18 13:30 07/01/18 13:45 07/01/18 14:00 Temperature Pulse Rate 94 H 94 H 98 H Respiratory Rate 20 19 20 Blood Pressure 118/60 114/57 L Pulse Oximetry 98 98 96 07/01/18 14:01 07/01/18 14:15 07/01/18 14:30 Temperature Pulse Rate 96 H 92 H 126 H Respiratory Rate 18 19 38 H Blood Pressure 115/62 115/66 108/63 Pulse Oximetry 97 98 95 07/01/18 14:45 07/01/18 15:00 07/01/18 15:15 Temperature Pulse Rate 105 H 92 H 104 H Respiratory Rate 30 H 26 H 44 H Blood Pressure 117/58 L 112/57 L 112/55 L Pulse Oximetry 94 L 89 L 07/01/18 15:30 07/01/18 15:43 07/01/18 15:45 Temperature Pulse Rate 96 H 98 H 88 Respiratory Rate 37 H 20 26 H Blood Pressure 118/56 L 115/60 Pulse Oximetry 87 L 96 07/01/18 16:00 07/01/18 16:15 07/01/18 18:00 Temperature 98.3 F Pulse Rate 92 H 94 H 122 H Respiratory Rate 22 24 Blood Pressure 110/55 L 107/58 L Pulse Oximetry 95 95 07/01/18 19:00 07/01/18 19:15 07/01/18 19:30 Temperature Pulse Rate 122 H 109 H 94 H Respiratory Rate 40 H 31 H 23 Blood Pressure 103/69 118/65 110/59 L Pulse Oximetry 83 L 94 L 100 07/01/18 19:45 07/01/18 20:00 07/01/18 20:15 Temperature 98.1 F Pulse Rate 93 H 95 H 93 H Respiratory Rate 24 23 23 Blood Pressure 106/57 L 110/57 L 108/53 L Pulse Oximetry 100 100 100 07/01/18 20:30 07/01/18 20:43 07/01/18 20:45 Temperature Pulse Rate 115 H 123 H 118 H Respiratory Rate 35 H 40 H 42 H Blood Pressure 116/56 L 104/57 L Pulse Oximetry 98 97 89 L 07/01/18 21:00 07/01/18 21:15 07/01/18 21:30 Temperature Pulse Rate 111 H 109 H 114 H Respiratory Rate 30 H 35 H 31 H Blood Pressure 107/59 L 100/59 L 108/59 L Pulse Oximetry 99 100 100 07/01/18 21:45 07/01/18 22:00 07/01/18 22:15 Temperature Pulse Rate 116 H 103 H 108 H Respiratory Rate 37 H 21 31 H Blood Pressure 103/57 L 98/54 L 109/58 L Pulse Oximetry 100 99 99 07/01/18 22:31 07/01/18 22:45 07/01/18 23:00 Temperature Pulse Rate 121 H 121 H 125 H Respiratory Rate 39 H 35 H 40 H Blood Pressure 118/63 116/62 Pulse Oximetry 92 L 89 L 90 L 07/01/18 23:02 07/01/18 23:15 07/01/18 23:30 Temperature Pulse Rate 125 H 118 H 120 H Respiratory Rate 37 H 39 H 39 H Blood Pressure 115/60 109/61 106/57 L Pulse Oximetry 90 L 93 L 90 L 07/01/18 23:45 07/02/18 00:00 07/02/18 00:01 Temperature 98.2 F Pulse Rate 109 H 106 H 102 H Respiratory Rate 39 H 33 H 25 H Blood Pressure 130/60 91/54 L Pulse Oximetry 96 98 96 07/02/18 00:13 07/02/18 00:15 07/02/18 00:30 Temperature Pulse Rate 107 H 124 H Respiratory Rate 32 H 41 H Blood Pressure 97/56 L 106/68 Pulse Oximetry 96 94 L 88 L 07/02/18 00:35 07/02/18 00:54 07/02/18 01:00 Temperature Pulse Rate 123 H 132 H 123 H Respiratory Rate 42 H 47 H 42 H Blood Pressure 117/61 135/67 118/63 Pulse Oximetry 86 L 85 L 88 L 07/02/18 01:15 07/02/18 01:30 07/02/18 01:45 Temperature Pulse Rate 110 H 106 H 104 H Respiratory Rate 34 H 34 H 28 H Blood Pressure 115/61 108/54 L 106/58 L Pulse Oximetry 95 95 95 07/02/18 02:00 07/02/18 02:15 07/02/18 02:31 Temperature Pulse Rate 104 H 120 H 123 H Respiratory Rate 31 H 38 H 41 H Blood Pressure 108/58 L 109/59 L 115/64 Pulse Oximetry 97 94 L 90 L 07/02/18 02:45 07/02/18 03:00 07/02/18 03:15 Temperature Pulse Rate 120 H 129 H 142 H Respiratory Rate 43 H 44 H 50 H Blood Pressure 128/76 134/81 136/82 Pulse Oximetry 95 86 L 84 L 07/02/18 03:45 07/02/18 04:00 07/02/18 04:16 Temperature 98.1 F Pulse Rate 122 H 116 H 111 H Respiratory Rate 37 H 33 H 43 H Blood Pressure 99/62 L 104/65 129/60 Pulse Oximetry 90 L 91 L 94 L 07/02/18 04:30 07/02/18 04:45 07/02/18 05:00 Temperature Pulse Rate 105 H 112 H 109 H Respiratory Rate 26 H 31 H 27 H Blood Pressure 96/57 L 103/59 L 96/54 L Pulse Oximetry 96 93 L 92 L 07/02/18 05:15 07/02/18 05:30 07/02/18 05:45 Temperature Pulse Rate 118 H 104 H 106 H Respiratory Rate 23 18 19 Blood Pressure 106/57 L 105/56 L 106/58 L Pulse Oximetry 89 L 92 L 91 L 07/02/18 06:00 07/02/18 06:15 07/02/18 06:30 Temperature Pulse Rate 105 H 103 H 108 H Respiratory Rate 17 17 19 Blood Pressure 93/52 L 101/58 L 112/64 Pulse Oximetry 89 L 90 L 94 L 07/02/18 06:45 07/02/18 07:00 07/02/18 07:33 Temperature Pulse Rate 104 H 105 H Respiratory Rate 15 15 Blood Pressure 101/60 108/56 L Pulse Oximetry 90 L 87 L 90 L Intake & Output 07/01/18 07/02/18 07/02/18 18:59 06:59 18:59 Intake Total 730 / 730 570 / 570 Output Total 525 / 525 300 / 300 Balance 205 / 205 270 / 270 Weight 68 kg Intake: IV 550 / 550 450 / 450 Precedex Inj 200 MCG In NS Inj 50 / 50 48 ML @ 0.2 MCG/KG/HR 3.17 mls/ hr IV.CONT TITRATE PRN Rx#: [id number] Diprivan 1000 mg/100 ml Inj 1, 10 / 10 000 mg In 100 ml @ 5 MCG/KG/MIN 1.86 mls/hr IV.CONT TITRATE PRN Rx#:[id number] Pitressin Inj 40 UNIT In NS Inj 40 / 40 98 ML @ 0.04 UNITS/MIN 6 mls/ hr IV.CONT CONT EMILIA Rx#: [id number] Flexbumin 25% Inj 100 ML @ 60 100 / 100 mls/hr IV.SIG ONCE ONE Rx#: [id number] Zosyn 3.375 GM Premix 3.375 gm 50 / 50 In 50 ml @ 100 mls/hr IV.SIG Q6H EMILIA Rx#:[id number] KCl 20 mEq Premix Inj 20 meq In 200 / 200 100 ml @ 50 mls/hr IV.SIG Q2H PRN Rx#:[id number] KCl 40 mEq Premix Inj 40 meq In 200 / 200 100 ml @ 25 mls/hr IV.SIG Q2H PRN Rx#:[id number] Vancomycin Inj 1,000 MG In NS 250 / 250 Inj 250 ML @ 250 mls/hr IV.SIG Q24H EMILIA Rx#:[id number] Rocephin Inj 2,000 MG In NS Inj 100 / 100 100 ML @ 200 mls/hr IV.SIG Q24H EMILIA Rx#:[id number] Tube Irrigant 180 / 180 Water Bolus Amount 120 / 120 Output: Urine 300 / 300 Urine Amount (Catheter) 525 / 525 Condom 525 / 525 Other: # Voids 4 Date of Last Bowel Movement 07/01/18 07/01/18 # Bowel Movements 0 # Incontinent Bowel Movements 1 Result Diagrams: 07/01/18 04:45 07/01/18 23:35 Objective Remarks: GEN: Frail-appearing critically ill elderly male lying in bed, oxygen saturation 88% on 100% nonrebreather HEENT: NCAT, PERRL NECK: Trachea midline CARDIO: Mildly tachycardic, irregular. Atrial fibrillation with RVR. RESP: Air entry equal bilaterally with coarse crackles and rhonchi. Using some accessory muscles. Hypoxic 100% nonrebreather ABD/GI: PEG tube in place, site clean/ dry/ intact, abdomen soft and non-tender EXT/MSK: No peripheral edema SKIN: Warm and well-perfused, stage 1 sacral decubitus NEURO: Patient is lethargic somnolent not on any continuous sedation. Moves extremities spontaneously do not follow commands Assessment and Plan - Assessment and Plan Plan: 87yM presenting with COPD exacerbation, septic shock secondary to HCAP, acute hypoxic respiratory failure requiring mechanical ventilation, very critical. Extubated yesterday but now severely hypoxemic requiring BiPAP. Prognosis poor NEURO: Acute metabolic encephalopathy history of restless leg syndrome * Avoid all long-acting sedation * PRN tylenol for pain * Continue home dose of requip * CARDIO: Septic shock Atrial fibrillation with RVR Septic shock improving, off vasopressors Cardizem 30 mg every 6 hours p.o via PEG Due to fluid overload give 40 mg IV Lasix start on 40 mg IV every 8 hours History of essential hypertension, atrial fibrillation, coronary artery disease * Continue home dose of aspirin, pravastatin * Rate control if needed with IV Cardizem gtt. RESP: Septic shock secondary to healthcare associated pneumonia COPD with acute exacerbation Acute hypoxic respiratory failure * Intubated and placed on mechanical ventilation on 06/28/2018. Extubated 07/01 * Currently severely hypoxemic starting BiPAP at 100%. Patient is in no reintubation * Continue scheduled and PRN nebs * Continue steroids Solu-Medrol 60 mg IV every 8 hours * Treat for recurrent HCAP with azithromycin,vancomycin. Discontinue azithromycin today * Follow up cultures and MRSA swab * Family wants to maintain DNI/DNR F/E/N: History of dysphagia Severe protein calorie malnutrition as evidenced by frailty and hypoalbuminemia * TFs via PEG * Maintenance fluids * ICU electrolyte protocol ENDO: History of hypothyroidism * Continue home dose of Synthroid ID: HCAP Septic shock Coag negative staph (staph hemolyticus) bacteremia * As outlined above. Follow-up on cultures, continue Zosyn and vancomycin. * Follow-up on sputum culture. Blood cultures negative to * Coag negative staph bacteremia 4 out of 4 bottles * 2D echo to rule out endocarditis-cannot rule out flail tricuspid valve, moderate TR * ID Dr. Cleveland PROPHY: * PPI (patient is on omeprazole at home) * SCDs, SQH Overall: This patient is critically ill with acute hypoxic respiratory failure requiring non-invasive ventilation and severe sepsis secondary to HCAP. He requires ICU level of care. I have also requested a palliative care consultation as this is the patient's 3rd hospitalization in 3 months related to his COPD/ recurrent pneumonia and he will undoubtedly continue to have sequelae of both of these issues going forward. Counseling/ Coordination of Care: This patient is critically ill with impairment of one or more vital organ systems with a high probability of imminent or life-threatening deterioration. High-complexity medical decision making was required to support vital organ function and/ or prevent deterioration in the patient's condition. Total critical care time spent is 38 minutes giving full attention to this patient. This includes examining the patient, gathering history from someone other than the patient (i.e. chart review), discussing the patient's care with other providers, managing the patient's bipap settings, ordering and interpreting radiologic studies, ordering and interpreting laboratory values, and documentation. Code Status: DNR
[2018-07-02] MEDS: Famotidine PF Inj 20 MG/2 ML Vial IV.PUSH SCH (09:07)
[2018-07-02] MEDS: dilTIAZem 30 MG Tablet PO SCH (09:08)
[2018-07-02] MEDS: Senna/Docusate Sodium 8.6/50 MG Tablet PO SCH ×2 (09:08→22:09)
[2018-07-02] MEDS: Chlorhexidine 0.12% Oral Kit 15 ML UDC OROPHARYNG SCH (09:09)
[2018-07-02] MEDS: Budesonide-Formoterol 80/4.5 MCG 6.9 GM Inhaler INH SCH (09:09)
--- NOTE | 2018-07-02 09:09 | XR ---
EXAM DATE: 07/02/2018 9:06 AM EST AGE/SEX: 87 years / Male INDICATIONS: Shortness of breath. CLINICAL DATA: This is the patient's subsequent encounter. Patient reports that signs and symptoms h ave been present for 4 - 6 days and indicates a pain score of Nonresponsive. MEDICAL/SURGICAL HISTORY: . Aneurysm, abdominal. Hypertension. Osteoarthritis. Coronary artery disease. A-Fib. GERD. COPD. . . Cholecystectomy. CABG. Coronary artery stent. COMPARISON: C, CHEST 1V SINGLE AP, 07/01/2018. . FINDINGS: The patient is status post sternotomy. There is a right internal jugular central line in place. There is diffuse consolidation being worse at the bases. This is worsened since the prior exam. There is s ilhouetting of the heart borders. There is silhouetting the hemidiaphragms. CONCLUSION: Worsening diffuse consolidation likely related to worsening edema. Some degree of effusions may prese nt especially on the right. Electronically signed by: Tulio Maya MD Board Certified Radiologist 07/02/2018 9:07 AM EST
[2018-07-02] MEDS: Multivit/Folic Acid/Minerals Chewable Tablets CHEW SCH (09:10)
[2018-07-02 10:49] LABS: Alanine Aminotransferase 33 U/L (12-78); Albumin 2.1 g/dL (3.4-5.0); Alkaline Phosphatase 92 U/L (45-117); Anion Gap 13 meq/L (5-15); Aspartate Aminotransferase 52 U/L (15-37); Blood Urea Nitrogen 47 mg/dL (7-18); Calcium 8.2 mg/dL (8.5-10.1); Carbon Dioxide 17.8 meq/L (21.0-32.0); Chloride 118 meq/L (98-107); Glomerular Filtration Rate 52 mL/min (>89); Glucose,Random 102 mg/dL (74-106); Potassium 3.9 meq/L (3.5-5.1); Sodium 149 meq/L (136-145); Total Protein 5.8 g/dL (6.4-8.2)
[2018-07-03] MEDS: Morphine Inj 4 MG/ML Vial IV.PUSH PRN (01:21)
--- NOTE | 2018-07-03 06:34 | P.DN ---
- Provider Primary care physician: Jem Kaufman MD Admitting clinician: Hoa Marie Attending physician on admission: Hoa Marie Consults: 06/27/18 18:24 Consult to Palliative Care Routine Consulting Provider: Celso Stack Reason for Consultation: Severe COPD with acute exacerbation, 3rd hospitalization in 3 months, wants to be DNR but ok with intubation, on bipap Notified:: Service Spoke with:: Valeria Date Notified:: 06/27/18 Time Notified:: 18:31 Ordering Provider: MATHEW 06/28/18 12:14 HUB Only Consult Order Routine Consulting Provider: Francisco Camops,Osmar 06/30/18 07:27 Consult to Infectious Diseases Routine Consulting Provider: Svetlana Cleveland Reason for Consultation: GPC bacteremia, septic shock Notified:: Service Spoke with:: luci Date Notified:: 06/30/18 Time Notified:: 07:38 Ordering Provider: FAUSTINO 07/01/18 09:20 HUB Only Consult Order Routine Consulting Provider: Surya London 07/02/18 14:23 Consult to Hospitalist Routine Consulting Provider: Aleshia Faye Reason for Consultation: Assume care in am 07/02/18 In patient hospice patient Notified:: Service Spoke with:: Maritza Date Notified:: 07/02/18 Time Notified:: 14:30 Comments:: waiting on assignment - Ordering Provider: FAUSTINO - Admitting Diagnosis (1) MATILDE (acute kidney injury) (2) Acute hypoxemic respiratory failure (3) Acute kidney injury (4) Bilateral pneumonia (5) Hyponatremia (6) Lactic acidosis (7) Malnutrition (8) COPD (chronic obstructive pulmonary disease) (9) Coronary artery disease (10) Restless leg syndrome (11) Paroxysmal atrial fibrillation - Diagnosis at Time of (1) Cardiac arrest Diagnosis: Principal (2) Acute hypoxemic respiratory failure Diagnosis: Principal (3) MATILDE (acute kidney injury) Diagnosis: Principal (4) Septic shock Diagnosis: Principal (5) Adult failure to thrive Diagnosis: Principal (6) Bilateral pneumonia Diagnosis: Principal (7) Elevated troponin Diagnosis: Principal (8) Hypokalemia Diagnosis: Principal (9) Leukocytosis Diagnosis: Principal (10) Malnutrition Diagnosis: Principal (11) SIRS (systemic inflammatory response syndrome) Diagnosis: Principal (13) COPD (chronic obstructive pulmonary disease) Diagnosis: Principal (14) Coronary artery disease Diagnosis: Secondary (15) Hyperlipidemia Diagnosis: Secondary (16) Hypothyroidism Diagnosis: Secondary (17) Recurrent pneumonia Diagnosis: Secondary (18) Restless leg syndrome Diagnosis: Secondary (19) Paroxysmal atrial fibrillation Diagnosis: Secondary - Date and Time Date of admission: 06/27/18 18:19 Date of : 07/03/18 Time of : 03:12 - Summary Procedures: Intubation, central line Brief History: 87yM presenting from [facility] with shortness of breath and cough. The patient has a history of severe COPD and reports that he's been "congested" and coughing for the past 2-3 days, was unable to catch his breath earlier today so he presented to the ED via EMS. His initial pulse ox at that time was in the mid 80s. He admits to productive cough and chills, denies fever , chest pain, palpitations, nausea or vomiting. The patient's reports that the patient had a significant decline in his functional status after he was admitted in 04/2018, is now no longer ambulatory and resides in a rehab facility , unable to perform most ADLs independently. COPD history- on 3L O2 around the clock at home, uses nebulizers/ inhalers ( including Symbicort), chronically on prednisone, multiple previous admissions for pneumonia (most recently in 04/2018, admitted to ICU but not intubated), follows with Dr. Magaña of pulmonology. The patient also had a PEG tube placed on 06/20/[address] Vázquez of for dysphagia and recurrent aspiration. Result Diagrams: 07/01/18 04:45 07/02/18 09:35 Significant Findings: Abnormal Lab Results 07/02/18 07/02/18 09:35 09:35 Sodium 149 H Potassium 3.9 3.9 Chloride 118 H Carbon Dioxide 17.8 L Anion Gap 13 BUN 47 H Creatinine 1.31 H Estimated GFR 52 L Random Glucose 102 Calcium 8.2 L D Total Bilirubin 0.6 AST 52 H ALT 33 Alkaline Phosphatase 92 Total Protein 5.8 L D Albumin 2.1 L D Hospital Course: 87yM presenting from [facility] with shortness of breath and cough. The patient has a history of severe COPD and reports that he's been "congested" and coughing for the past 2-3 days, was unable to catch his breath earlier today so he presented to the ED via EMS. His initial pulse ox at that time was in the mid 80s. He admits to productive cough and chills, denies fever , chest pain, palpitations, nausea or vomiting. The patient's reports that the patient had a significant decline in his functional status after he was admitted in 04/2018, is now no longer ambulatory and resides in a rehab facility , unable to perform most ADLs independently. COPD history- on 3L O2 around the clock at home, uses nebulizers/ inhalers (including Symbicort), chronically on prednisone, multiple previous admissions for pneumonia (most recently in 04/2018 , admitted to ICU but not intubated), follows with Dr. Magaña of pulmonology. The patient also had a PEG tube placed on 06/20/[address] Vázquez of for dysphagia and recurrent aspiration. SUBJ 06/28/18: Critically ill male lying in bed on BiPAP. Chest x-ray shows persistent bilateral infiltrates indicating pneumonia. He is hypotensive systolic blood pressure in the 80s map 55-60. I have ordered additional 1 L fluid bolus. His clinical worsening most likely secondary to sepsis/shock 06/29/18: Patient remains intubated sedated. Was intubated yesterday for worsening hypoxemic respiratory failure and worsening septic shock. Currently on 11 mcg/min of Levophed. However oxygenation has improved. Chest x-ray shows improving but persistent left more than right basilar infiltrates. Sputum culture is pending at this. Developed A. fib with RVR will receive his Cardizem but at 30 mg every 6 hours dosing 06/30: Remains intubated sedated with fentanyl. Remains on vasopressin at 0.0/ units. Oliguric overnight creatinine bumped to 1.4. However with straight cath he made 1 L urine. Renal ultrasound ordered. Failed CPAP trial in a.m. due to agitation will start on Precedex to facilitate vent weaning 07/01: Intubated lightly sedated with fentanyl infusion. Creatinine improved after straight cath. Urine output more than 3 L, off all pressors. Weight up due to resuscitation. Will give 1 dose of albumin and Lasix 40 mg x1 07/02: Patient was extubated yesterday initially did well overnight more hypoxemic currently barely saturation above 88% on 1% nonrebreather. Coarse bilateral crackles on chest exam. Stat 40 mg IV Lasix given and start scheduled 40 mg every 8 hours. Start BiPAP 06/17. Prognosis appears poor but family is not ready for transition to comfort measures. Patient continued to deteriorate and family decided on in patent hospice. Comfort measures ere initiated. patient at 312 am on 07/03/18
== END 2018-07-03 03:12 | disposition expired ==
LOC: NEPE 16:28 → NEDA 18:19 → HIMC 20:00
PROVIDERS: ADMIT Surgery Surgical Critical Care; ATTEND Surgery Surgical Critical Care